=== PATIENT | female | born 1950 | race Caucasian/White ===

== ENCOUNTER 2019-04-17 09:22 | Outpatient (CLI) | payer MEDICARE, SELFPAY ==
--- NOTE | ~2019-04-17 | CT_ITS ---
EXAMINATION:CT lung screening DATE: 04/17/2019 09:52 INDICATION: Personal history of tobacco dependence. Current smoker with 40 pack year history. TECHNIQUE: Computed tomography (CT) of the chest was performed without intravenous contrast. Automate d exposure control and iterative reconstruction technique were employed. The dose-length product (DLP ) was 95.32 mGy-cm. COMPARISON: Chest CT 02/14/2018 FINDINGS: There is moderate emphysema. There is mild bronchiectasis in the inferior lungs. Calcified bilateral lung nodules and calcified right hilar lymph nodes are consistent with old granulomatous di sease. There is mild atelectasis bilaterally. There is a chronic 2 mm nodule in left upper lobe. Ther e is a chronic 3 mm groundglass nodule in left upper lobe. No pleural effusion. The heart size is nor mal. There are coronary artery calcifications. No pericardial effusion. There is mild thoracic spondy losis. IMPRESSION: 1. Lung-RADS category 2: Benign appearance or behavior. Continue annual screening with noncontrast lo w-dose chest CT in 12 months. Reviewed, dictated and finalized at location A. ER HAND IMPRESSION: 1. Lung-RADS category 2: Benign appearance or behavior. Continue annual screeni ng with noncontrast low-dose chest CT in 12 months.
== END 2019-04-17 09:23 | disposition home or self-care (01) ==
PROVIDERS: PCP Family Medicine; Visit Provider Nurse Practitioner Family
DX: Z12.2 Encounter for screening for malignant neoplasm of respiratory organs (principal); Z87.891 Personal history of nicotine dependence
CPT/HCPCS: G0297

== ENCOUNTER 2019-09-11 12:39 | Outpatient (CLI) | payer MEDICARE, SELFPAY ==
--- NOTE | 2019-09-16 11:37 | WPDPFTINT ---
PFT Interpretation PFT Interpretation: This PFT met all criteria for ATS standards and reproducibility FEV/FVC post bronchodilator 28% of predicted FEV1 45% of predicted or 1.00 liters FVC 118% or 3.59 liters FVC improved by 16% and 510 ml after bronchodilator challenge TLC 170% of predicted 0r 1.70 liters RV 276% RV/TLC 64% DLCO 58% when adjusted for alveolar volume but not adjusted for hemoglobin Flow volume loops showed severe expiratory coving Impression: Severe air flow obstruction with good response to bronchodilators. Hyperinflation, air trapping and moderately reduced diffusion capacity are also present. When compared to PFT from August 2017 there has been a decline in FEV1 but this is within the accepted rate of decline. This pattern suggest COPD with possible Asthma compoenent. Clinical correlation is advised.
== END 2019-09-11 12:40 | disposition home or self-care (01) ==
PROVIDERS: PCP Family Medicine; Visit Provider Internal Medicine Critical Care Medicine
DX: J44.9 Chronic obstructive pulmonary disease, unspecified (principal); R94.2 Abnormal results of pulmonary function studies
CPT/HCPCS: 94060; 94726; 94729

== ENCOUNTER 2019-11-20 08:59 | Outpatient (CLI) | payer MEDICARE, SELFPAY ==
--- NOTE | ~2019-11-20 | MMUS_ITS ---
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 CAD analysis was submitted and interpreted. High resolution complete bilat eral breast ultrasound was performed. COMPARISON: 10/31/2018 bilateral digital mammogram and limited left breast ultrasound BREAST PARENCHYMAL COMPOSITION: There are scattered areas of fibroglandular density. FINDINGS: MAMMOGRAPHIC FINDINGS: There is stable postoperative scarring and retraction in the upper outer quadrant of the left breast. A biopsy marker is present in the outer mid left breast. There is mild nodularity of the fibroglandular stroma in the upper outer quadrant of the right breast ; small new nodular mass cannot be excluded. Ultrasound examination was performed. ULTRASOUND: Right breast: Real-time interrogation of the upper outer quadrant of the right breast and subareolar area reveals no suspicious mass or shadowing. Left breast: There is architectural distortion likely due to postoperative change at 2:00 2 cm from t he nipple; 6 month follow-up diagnostic left mammogram and left breast ultrasound examination are rec ommended. IMPRESSION: 1. Probable stable postoperative change of upper outer quadrant of left breast 2. 6 month diagnostic left mammogram and left breast ultrasound follow-up are recommended. BI-RADS category 3, probably benign findings. Reviewed, dictated and finalized at location A. IMPRESSION: 1. Probable stable postoperative change of upper outer quadrant of left breast 2. 6 month diagnostic left mammogram and left breast ultrasound follow-up are r ecommended. BI-RADS category 3, probably benign findings.
== END 2019-11-20 09:00 | disposition home or self-care (01) ==
PROVIDERS: PCP Family Medicine
DX: D05.02 Lobular carcinoma in situ of left breast (principal); R92.8 Other abnormal and inconclusive findings on diagnostic imaging of breast
CPT/HCPCS: 76642; 77062; 77066; G0279

== ENCOUNTER 2020-04-15 12:13 | Outpatient (CLI) | payer MEDICARE, SELFPAY ==
--- NOTE | ~2020-04-15 | CT_ITS ---
EXAMINATION: CT lung screening DATE: 04/15/2020 12:45 INDICATION: Personal history of nicotine dependence, current smoker with 45 pack year history TECHNIQUE: Computed tomography (CT) of the chest was performed without intravenous contrast. The dose -length product (DLP) was 106.40 mGy-cm. Automated exposure control and iterative reconstruction tech [employer] were employed. COMPARISON: 04/17/2019 FINDINGS: There is moderate emphysema. There is a stable 11 mm groundglass nodule of the right upper lobe without solid nodular component (image 50). A chronic stable 2 mm nodule is present in the left upper lobe. No new pulmonary nodules are identified. There is no pleural effusion or pneumothorax. Mi ld bronchiectasis is noted in the lower lobes. There is a calcified granuloma right lower lobe. No pa thologically enlarged thoracic lymph nodes are identified. The heart size is normal. An intramuscular lipoma is noted in the right chest wall. There is calcified coronary artery atherosclerosis. IMPRESSION: 1. Lung-RADS category 2: Benign appearance or behavior. Continue annual screening with noncontrast lo w-dose chest CT in 12 months. Reviewed, dictated and finalized at location A. SPACE PROJECT MANAGER IMPRESSION: 1. Lung-RADS category 2: Benign appearance or behavior. Continue annual screeni ng with noncontrast low-dose chest CT in 12 months.
== END 2020-04-15 12:14 | disposition home or self-care (01) ==
PROVIDERS: PCP Physician Assistant; Visit Provider Nurse Practitioner Family
DX: Z12.2 Encounter for screening for malignant neoplasm of respiratory organs (principal); Z87.891 Personal history of nicotine dependence
CPT/HCPCS: 71271

== ENCOUNTER → 2020-05-31 02:12 | Outpatient (CLI) | payer MEDICARE, SELFPAY ==
[2020-05-31 20:23] LABS: SARS-CoV-2 RNA PCR Negative
== END ==
PROVIDERS: PCP Physician Assistant; Visit Provider Internal Medicine Gastroenterology
DX: Z01.812 Encounter for preprocedural laboratory examination (principal); Z20.822 Contact with and (suspected) exposure to COVID-19
CPT/HCPCS: C9803; U0003; U0005

== ENCOUNTER 2020-06-03 01:32 | Day surgery (SDC) | payer MEDICARE, SELFPAY ==
[2020-05-20 13:27] VITALS: BMI 26.7
[2020-06-03 06:25] VITALS: BP 153/95; PULSE 98; RESP 18; TEMP 36.6; O2SAT 98
[2020-06-03] MEDS: LACTATED RINGERS 1,000 ML 150 ML IV CONT (06:35)
--- NOTE | 2020-06-03 07:04 | P.PNAN_ITS ---
Anes - Initial Pre Proc Eval Procedure: Operation Date: 06/03/20 07:30 Proposed Procedures p Screening Colonoscopy - Zion Matta MD Date/Time: 06/03/20 07:04 Surgeon: Zion Matta MD Pre Op Diagnosis: Neoplasm Screening, Hx of Colon Polyps Patient Data Age: 69 Gender: F Height: 5 ft 5 in Weight: 71.2 kg Last Vital Signs Temp 36.6 C 06/03/20 06:25 Pulse 98 06/03/20 06:25 Resp 18 06/03/20 06:25 BP 153/95 H 06/03/20 06:25 Pulse Ox 98 06/03/20 06:25 Allergies Allergy/AdvReac Type Severity Reaction Status Date / Time morphine Allergy Unknown Nausea Verified 06/03/20 06:23 Home Medications Medication Instructions Recorded Confirmed Type aspirin 81 mg tablet,delayed 81 mg PO DAILY 02/19/19 06/03/20 History release nitroglycerin 0.4 mg sublingual 0.4 mg SUBLINGUAL Q5M PRN 02/19/19 06/03/20 History tablet albuterol sulfate 90 mcg/actuation 1 inhalation INHALATION Q4H #8.5 gm 05/15/19 06/03/20 Rx aerosol inhaler irbesartan 150 mg tablet 150 mg PO DAILY #90 tablet 02/12/20 06/03/20 Rx ascorbate calcium (vitamin C) 500 500 mg PO DAILY 03/20/20 06/03/20 History mg tablet atorvastatin 80 mg tablet 80 mg PO DAILY 03/20/20 06/03/20 History cholecalciferol (vitamin D3) 250 250 mcg PO WEEKLY 03/20/20 06/03/20 History mcg (10,000 unit) capsule clobetasol 0.05 % topical cream 1 applic TOPICAL DAILY 03/20/20 06/03/20 History fluticasone propionate 50 1 spray INTRANASAL DAILY 03/20/20 06/03/20 History mcg/actuation nasal spray,suspension loratadine 10 mg capsule 10 mg PO DAILY 03/20/20 06/03/20 History tacrolimus 0.1 % topical ointment 1 applic TOPICAL BID 03/20/20 06/03/20 History triamcinolone acetonide 0.1 % 1 applic TOPICAL BID 03/20/20 06/03/20 History topical cream zoledronic acid 5 mg/100 mL in IV 03/20/20 04/01/20 History mannitol 5 %-water intravenous piggybck budesonide 160 mcg-glycopyr 9 2 inh INHALATION QAM AND QPM #10.7 04/25/20 06/03/20 Rx mcg-formot 4.8 mcg/actuation HFA g inhaler sod picosulf 10 mg-magnes 3.5 160 ml PO BID #160 ml 05/02/20 06/03/20 Rx gram-citric 12 gram/160 mL oral solution omeprazole 20 mg tablet,delayed 20 mg PO DAILY #90 tablet 05/28/20 Rx release Patient hx anesthesia problems: none Family hx anesthesia problems: none PMFSH Past Medical History Medical History Benign hypertension Chronic obstructive pulmonary disease 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
--- NOTE | 2020-06-03 07:05 | PM.HPGS ---
History of Present Illness History of Present Illness Consent: Risks, benefits, and alternatives have been discussed and questions answered. Patient agrees to proceed with procedure. Chief complaint: Neoplasm Screening, Hx of Colon Polyps Narrative: Oralia Garsia is a 69 year old female Here for colon cancer screening. 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y: 1 Smoking cigarettes per day: 20.0 Years smoked: 45 Smoking pack-years: 45.00 Smoking status: Current every day smoker Tobacco type: cigarettes Second hand tobacco smoke exposure: No Alcohol intake: current Living arrangements: alone Gender identity (if verbalized by the patient): Female Spiritual care concerns: No Meds Home Medications and Allergies Home Medications Medication Instructions Recorded Confirmed Type aspirin 81 mg tablet,delayed 81 mg PO DAILY 02/19/19 06/03/20 History release nitroglycerin 0.4 mg sublingual 0.4 mg SUBLINGUAL Q5M PRN 02/19/19 06/03/20 History tablet albuterol sulfate 90 mcg/actuation 1 inhalation INHALATION Q4H #8.5 gm 05/15/19 06/03/20 Rx aerosol inhaler irbesartan 150 mg tablet 150 mg PO DAILY #90 tablet 02/12/20 06/03/20 Rx ascorbate calcium (vitamin C) 500 500 mg PO DAILY 03/20/20 06/03/20 History mg tablet atorvastatin 80 mg tablet 80 mg PO DAILY 03/20/20 06/03/20 History cholecalciferol (vitamin D3) 250 250 mcg PO WEEKLY 03/20/20 06/03/20 History mcg (10,000 unit) capsule clobetasol 0.05 % topical cream 1 applic TOPICAL DAILY 03/20/20 06/03/20 History fluticasone propionate 50 1 spray INTRANASAL DAILY 03/20/20 06/03/20 History mcg/actuation nasal spray,suspension loratadine 10 mg capsule 10 mg PO DAILY 03/20/20 06/03/20 History tacrolimus 0.1 % topical ointment 1 applic TOPICAL BID 03/20/20 06/03/20 History triamcinolone acetonide 0.1 % 1 applic TOPICAL BID 03/20/20 06/03/20 History topical cream zoledronic acid 5 mg/100 mL in IV 03/20/20 04/01/20 History mannitol 5 %-water intravenous piggybck budesonide 160 mcg-glycopyr 9 2 inh INHALATION QAM AND QPM #10.7 04/25/20 06/03/20 Rx mcg-formot 4.8 mcg/actuation HFA g inhaler sod picosulf 10 mg-magnes 3.5 160 ml PO BID #160 ml 05/02/20 06/03/20 Rx gram-citric 12 gram/160 mL oral solution omeprazole 20 mg tablet,delayed 20 mg PO DAILY #90 tablet 05/28/20 Rx release Allergies Allergy/AdvReac Type Severity Reaction Status Date / Time morphine Allergy Unknown Nausea Verified 06/03/20 06:23 Vital Signs Vital Signs - 24 hr 06/03/20 06:25 Temperature 36.6 C Pulse Rate 98 Respiratory Rate 18 Blood Pressure 153/95 H Pulse Oximetry 98 Exam Resp: Auscultation: clear to auscultation bilaterally Cardio: Rate: regular rate Rhythm: regular rhythm GI: GI Palp: Yes Soft to palpation and No Tenderness to palpation present (GI) Assessment and Plan Assessment and plan (1) Colon cancer screening: Code(s): Z12.11 - Encounter for screening for malignant neoplasm
[2020-06-03 07:47] VITALS: BP 121/77; PULSE 83; RESP 27; O2SAT 100
[2020-06-03 07:57] VITALS: BP 138/68; PULSE 77; RESP 24; O2SAT 100
[2020-06-03 08:07] VITALS: BP 134/68; PULSE 81; RESP 22; O2SAT 99
== END 2020-06-03 08:25 | disposition home or self-care (01) ==
PROVIDERS: PCP Physician Assistant; Visit Provider Internal Medicine Gastroenterology
PROC: 0DJD8ZZ Inspection of Lower Intestinal Tract, Via Natural or Artificial Opening Endoscopic (ICD-10-PCS; CPT 45378; principal; 2020-06-03 07:30)
DX: Z12.11 Encounter for screening for malignant neoplasm of colon (principal); D12.0 Benign neoplasm of cecum; K62.1 Rectal polyp; K57.30 Diverticulosis of large intestine without perforation or abscess without bleeding; J44.9 Chronic obstructive pulmonary disease, unspecified; I10 Essential (primary) hypertension; I25.10 Atherosclerotic heart disease of native coronary artery without angina pectoris; M81.0 Age-related osteoporosis without current pathological fracture; R76.11 Nonspecific reaction to tuberculin skin test without active tuberculosis; Z79.82 Long term (current) use of aspirin; Z79.51 Long term (current) use of inhaled steroids; F17.210 Nicotine dependence, cigarettes, uncomplicated
CPT/HCPCS: 45385; 45380; 88305; C9803; J2704; J7120; U0003; U0005

== ENCOUNTER 2021-04-28 07:02 | Outpatient (CLI) | payer MEDICARE, SELFPAY ==
--- NOTE | ~2021-04-28 | CT_ITS ---
EXAMINATION: CT lung screening DATE: 04/28/2021 07:26 INDICATION: Personal history of tobacco dependence TECHNIQUE: Computed tomography (CT) of the chest was performed without intravenous contrast. The dose -length product was 93.94 mGy-cm. Automated exposure control and iterative reconstruction technique w ere employed. COMPARISON: Comparison to multiple prior studies sequentially, with oldest reviewed study dated 04/17. FINDINGS: Stable groundglass density right upper lobe adjacent to the fissure, image 49. Densely calc ified right lower lobe nodule. There are a few additional scattered areas of groundglass opacificatio n which are not significantly changed. There are a few small nodules predominantly in the upper lobes measuring 2 mm or less, without significant change. Mild emphysema. No endobronchial lesions. No new pulmonary nodules or masses. There is right lower lobe atelectasis/scarring. No thoracic lymphadenop athy. There is atherosclerosis of the aorta and coronary arteries. Heart size normal. No significant pleural or pericardial effusion. Mild thoracic spondylosis. IMPRESSION: 1. Lung-RADS category 2: Benign appearance or behavior. Continue annual screening with noncontrast lo w-dose chest CT in 12 months. Reviewed, dictated and finalized at location B. DATA IMPRESSION: 1. Lung-RADS category 2: Benign appearance or behavior. Continue annual screeni ng with noncontrast low-dose chest CT in 12 months.
== END 2021-04-28 07:03 | disposition home or self-care (01) ==
PROVIDERS: PCP Family Medicine; Visit Provider Nurse Practitioner Family
DX: Z87.891 Personal history of nicotine dependence (principal)
CPT/HCPCS: 71271

== ENCOUNTER 2022-04-08 07:56 | Outpatient (CLI) | payer MEDICARE, SELFPAY ==
[2022-04-08 08:50] LABS: Alanine Aminotransferase 56 U/L (6-35); Albumin Level 4.3 g/dL (3.5-5.1); Alkaline Phosphatase 63 U/L (38-126); Anion Gap 5 mmol/L (8-16); Aspartate Amino Transferase 35 U/L (14-36); Bilirubin,Total 0.8 mg/dL (0.2-1.3); Blood Urea Nitrogen 11 mg/dL (7-17); Calcium 9.2 mg/dL (8.4-10.2); Carbon Dioxide 30 mmol/L (22-30); Chloride 100 mmol/L (98-107); Cholesterol 157 mg/dL (0-200); Estimated Glomerular Filt Rate > 60; Glucose 105 mg/dL (65-110); HDL Direct 83 mg/dL; Potassium 4.1 mmol/L (3.4-5.0); Sodium 135 mmol/L (137-145); Triglycerides 58 mg/dL (<150)
[2022-04-08 09:01] LABS: LDL Cholesterol Direct 54 mg/dL
[2022-04-08 11:04] LABS: Hepatitis C Virus Antibody Negative (Negative)
== END 2022-04-08 07:57 | disposition home or self-care (01) ==
LOC: ANHLAB 07:58
PROVIDERS: PCP Family Medicine; Visit Provider Family Medicine
DX: Z00.00 Encounter for general adult medical examination without abnormal findings (principal); I25.10 Atherosclerotic heart disease of native coronary artery without angina pectoris; E78.2 Mixed hyperlipidemia; Z11.59 Encounter for screening for other viral diseases
CPT/HCPCS: 36415; 80053; 80061; 86803

== ENCOUNTER 2022-04-29 07:05 | Outpatient (CLI) | payer MEDICARE, SELFPAY ==
--- NOTE | ~2022-04-29 | CT_ITS ---
EXAMINATION: CT lung screening DATE: 04/29/2022 07:26 INDICATION: Lung cancer screening. TECHNIQUE: Computed tomography (CT) of the chest was performed without intravenous contrast. The dose -length product was 92.76 mGy-cm. Automated exposure control and iterative reconstruction technique w ere employed.. Automated exposure control and iterative reconstruction technique were employed. COMPARISON: Comparison to multiple prior studies sequentially, with oldest reviewed study dated 04/17. FINDINGS: There is an irregular shaped 2 cm mass in the left breast with peripheral coarse calcificat ion. This does not appear significantly changed from prior examinations, possibly previous biopsy loc ated. Recommend correlation with diagnostic mammogram and ultrasound. Heart size normal. No significa nt pleural or pericardial effusion. Calcified granuloma right lower lobe. No thoracic lymphadenopathy . There is emphysema. There are groundglass opacities in the right upper lobe and right lower lobe. N o endobronchial lesions. No pneumothorax. There is a 7 mm nodule in the right lower lobe surrounded b y groundglass opacification. There is a 2 mm right upper lobe nodule. IMPRESSION: 1. Lung Rads category 4A, suspicious: recommend follow-up low dose CT chest in 3 months or PET/CT sca n. 2: Patchy groundglass opacities of the right upper lobe, most likely infectious/inflammatory. Reviewed, dictated and finalized at location L. HEAD HAND IMPRESSION: 1. Lung Rads category 4A, suspicious: recommend follow-up low dose CT chest in 3 months or PET/CT scan. 2: Patchy groundglass opacities of the right upper lobe, most likely infectious /inflammatory.
== END 2022-04-29 07:06 | disposition home or self-care (01) ==
PROVIDERS: PCP Family Medicine; Visit Provider Physician Assistant
DX: Z12.2 Encounter for screening for malignant neoplasm of respiratory organs (principal); F17.210 Nicotine dependence, cigarettes, uncomplicated; R91.8 Other nonspecific abnormal finding of lung field
CPT/HCPCS: 71271

== ENCOUNTER 2022-07-27 10:07 | Outpatient (CLI) | payer MEDICARE, SELFPAY ==
--- NOTE | ~2022-07-27 | CT_ITS ---
EXAMINATION:CT diagnostic chest wo con DATE: 07/27/2022 10:44 INDICATION: Lung nodule. TECHNIQUE: Computed tomography (CT) of the chest was performed without intravenous contrast. Automate d exposure control and iterative reconstruction technique were employed. The dose-length product (DLP ) was 108.77 mGy-cm. COMPARISON: Chest CT 04/29/2022, 04/28/21 FINDINGS: There is severe emphysema. A calcified right lung nodule and calcified right hilar lymph no niesha are consistent with old granulomatous disease. There is mild bronchiectasis in the inferior lungs . There are mild groundglass opacities in right upper lobe and right lower lobe with interval improve ment. Groundglass opacities in right lower lobe are associated with a 5 mm nodule that previously alexa sured 6 mm. No pleural effusion. The heart size is normal. There are coronary artery calcifications. No pericardial effusion. There is calcified atherosclerosis of the aorta and many of the other arteri es. There is chronic postoperative change in left breast. There is mild thoracic spondylosis. IMPRESSION: 1. Lung-RADS category 3: Probably benign. Further evaluation is recommended with noncontrast low-dose chest CT in 6 months. Reviewed, dictated and finalized at location A. IMPRESSION: 1. Lung-RADS category 3: Probably benign. Further evaluation is recommended wit h noncontrast low-dose chest CT in 6 months.
== END 2022-07-27 10:08 | disposition home or self-care (01) ==
PROVIDERS: PCP Family Medicine; Visit Provider Nurse Practitioner Family
DX: R91.8 Other nonspecific abnormal finding of lung field (principal)
CPT/HCPCS: 71250

== ENCOUNTER 2023-01-26 12:33 | Outpatient (CLI) | payer MEDICARE, SELFPAY ==
--- NOTE | ~2023-01-26 | CT_ITS ---
EXAMINATION: CT diagnostic chest wo con DATE: 01/26/2023 13:04 INDICATION: COPD, history of breast cancer, history of groundglass opacities of the right lung and yee ng cancer screening CT TECHNIQUE: Computed tomography (CT) of the chest was performed without intravenous contrast. The dose -length product (DLP) was 81.65 mGy-cm. Automated exposure control and iterative reconstruction techn ique were employed. COMPARISON: 07/27/2022 FINDINGS: There are persistent but improved groundglass opacities of the right lower lobe. A previous ly described associated subpleural nodule is no longer evident. No new pulmonary nodules are identifi ed. The lungs are free of acute opacities. No pleural effusion or pneumothorax. A calcified nodule of the right lower lobe is consistent with old granulomatous disease. Postoperative changes are again n oted in the left breast. No pathologically enlarged thoracic lymph nodes are identified. The heart si ze is normal. Calcified coronary artery atherosclerosis is noted. There is mild thoracic spondylosis. IMPRESSION: 1. Lung-RADS category 2: Benign appearance or behavior. Continue annual screening with noncontrast lo w-dose chest CT in 12 months. Reviewed, dictated and finalized at location F. ERMAN MACHINE OPERATOR IMPRESSION: 1. Lung-RADS category 2: Benign appearance or behavior. Continue annual screeni ng with noncontrast low-dose chest CT in 12 months.
== END 2023-01-26 12:34 | disposition home or self-care (01) ==
PROVIDERS: PCP Family Medicine; Visit Provider Nurse Practitioner Family
DX: R91.8 Other nonspecific abnormal finding of lung field (principal)
CPT/HCPCS: 71250

== ENCOUNTER 2023-07-22 07:45 | Outpatient (CLI) | payer MEDICARE, SELFPAY ==
--- NOTE | ~2023-07-22 | US_ITS ---
Limited Abdominal Sonogram: Real-time sonographic imaging of the right upper quadrant was performed. Clinical History: Abnormal serum enzyme levels Findings: The liver appears echogenic, with no evidence of solid mass lesion or bile duct dilatation . Small hepatic cysts are present. Main portal vein demonstrates normal direction of flow. The gallbl adder is well distended, and appears normal with no evidence of gallstone or wall thickening. The com mon bile duct measures 6 mm. The visualized pancreas, aorta, and IVC are unremarkable. Impression: Diffuse fatty infiltration of the liver. Small hepatic cysts. Reviewed, dictated and finalized at location . Impression: Diffuse fatty infiltration of the liver. Small hepatic cysts.
== END 2023-07-22 07:46 | disposition home or self-care (01) ==
PROVIDERS: PCP Family Medicine; Visit Provider Family Medicine
DX: R74.8 Abnormal levels of other serum enzymes (principal); K76.0 Fatty (change of) liver, not elsewhere classified; K76.89 Other specified diseases of liver
CPT/HCPCS: 76705

== ENCOUNTER 2023-08-05 09:04 | Outpatient (CLI) | payer MEDICARE, SELFPAY ==
--- NOTE | ~2023-08-05 | MM_ITS ---
EXAMINATION: MM diagnostic ricardo BI w mandeep HISTORY: Lobular carcinoma in situ of the left breast TECHNIQUE: Additional 3-D tomosynthesis images of the breasts were performed and synthetic 2-D images were generated. CAD analysis was submitted and interpreted. COMPARISON: Comparison to multiple prior studies sequentially, with oldest reviewed study dated 09/2018. BREAST PARENCHYMAL COMPOSITION: Not dense: There are scattered areas of fibroglandular density. FINDINGS: The right breast is stable without evidence for malignancy. There is architectural distorti on and asymmetry in the upper outer quadrant of the left breast, consistent with previous lumpectomy. There are associated tissue markers. There are developing calcifications associated with this karlie ectural distortion. Some of the calcifications are coarse benign appearance while others have a more pleomorphic appearance. IMPRESSION: 1. Developing indeterminate left breast calcifications in the area of prior lumpectomy. 2. Consider further evaluation with MRI to assess for abnormal enhancement. Alternatively further angelito luation with biopsy may be performed at the discretion of the patient and physician. BI-RADS Category 0: Incomplete: Needs additional imaging evaluation. Reviewed, dictated and finalized at location B. IMPRESSION: 1. Developing indeterminate left breast calcifications in the area of prior lum pectomy. 2. Consider further evaluation with MRI to assess for abnormal enhancement. Alt ernatively further evaluation with biopsy may be performed at the discretion of the patient and physician. BI-RADS Category 0: Incomplete: Needs additional imaging evaluation.
== END 2023-08-05 09:05 ==
LOC: MICIMG 09:06
PROVIDERS: PCP Family Medicine; Visit Provider Internal Medicine Hematology & Oncology
DX: D05.02 Lobular carcinoma in situ of left breast (principal); Z98.890 Other specified postprocedural states
CPT/HCPCS: 77062; 77066; G0279

== ENCOUNTER 2024-01-24 07:59 | Outpatient (CLI) | payer MEDICARE, SELFPAY ==
--- NOTE | ~2024-01-24 | CT_ITS ---
EXAMINATION: CT lung screening DATE: 01/24/2024 08:34 INDICATION: Z87.891 - Personal history of nicotine dependence TECHNIQUE: Computed tomography (CT) of the chest was performed without intravenous contrast. Addition al 3D reconstructions utilizing coronal maximum intensity projection (MIP) were performed. Automated exposure control and iterative reconstruction technique were employed. The dose-length product was 67 .68 mGy-cm. COMPARISON: 01/26/2023 FINDINGS: Mild emphysema. Calcified pulmonary nodules in the right lower lobe and calcified right hilar and med iastinal lymph nodes consistent with old granulomatous disease. Overall increase in size of a previou sly 3 mm, currently 7 mm nodule in the anterior segment of the left upper lobe. Interval increase in size of a an ovoid likely intrafissural lymph node along the cephalad right major fissure which previ ously measured 4 x 2 mm on the coronal images, currently measuring 6 x 3 mm. Interval progression of geographic region of peripheral predominant groundglass opacity and irregular septal line thickening in the right lower lobe. There are some associated small subsegmental regions of consolidation at the anteroinferior aspect of the region of predominantly interstitial lung disease which was previously free of opacities. Both the distribution and pattern of progression would favor acute on chronic pneu monia over malignancy. There is some linear discoid atelectasis in the right middle lobe. No pleural effusion. Heart size is normal. Atherosclerotic coronary artery calcification is. Aortic valve calcif ication. No pericardial effusion. Additional atherosclerotic calcifications along the normal caliber thoracic aorta and great vessels arising from the arch. No pathologically enlarged thoracic lymphaden opathy. Prominent diffuse hepatic steatosis. Mild thoracic spondylosis. Chronic healing fractures of the right lateral fifth-seventh ribs. IMPRESSION: 1. Lung-RADS category 4AS: (Suspicious, 5-15% chance of malignancy). Recommend 3 month follow-up low- dose noncontrast chest CT. 2. Significant interval progression in the region of groundglass opacity, irregular septal line thick ening and small patchy regions of consolidation in the right lower lobe suspicious for acute on chron ic pneumonia. Reviewed, dictated and finalized at location B. RETE BUILDINGS ASSEMBLER IMPRESSION: 1. Lung-RADS category 4AS: (Suspicious, 5-15% chance of malignancy). Recommend 3 month follow-up low-dose noncontrast chest CT. 2. Significant interval progression in the region of groundglass opacity, irreg ular septal line thickening and small patchy regions of consolidation in the ri ght lower lobe suspicious for acute on chronic pneumonia.
== END 2024-01-24 08:00 | disposition home or self-care (01) ==
PROVIDERS: PCP Family Medicine; Visit Provider Nurse Practitioner Family
DX: Z12.2 Encounter for screening for malignant neoplasm of respiratory organs (principal); Z87.891 Personal history of nicotine dependence
CPT/HCPCS: 71271

== ENCOUNTER 2024-02-13 10:15 | Outpatient (CLI) | payer MEDICARE, SELFPAY ==
--- NOTE | ~2024-02-13 | MM_ITS ---
EXAMINATION: MM diagnostic ricardo LT w mandeep HISTORY: Follow-up left breast calcifications. Status post left lumpectomy for benign tumor. TECHNIQUE: Additional 3-D tomosynthesis images of the left breast were performed and synthetic 2-D im ages were generated. CAD analysis was submitted and interpreted. COMPARISON: Comparison to multiple prior studies sequentially, with oldest reviewed study dated 11/19. BREAST PARENCHYMAL COMPOSITION: Not dense: There are scattered areas of fibroglandular density. FINDINGS: There are surgical changes consistent with previous lumpectomy in the upper outer quadrant of the left breast. There are adjacent tissue markers. There are developing coarse amorphous calcific ations, most likely benign fat necrosis. IMPRESSION: 1. Probable benign calcifications developing in the upper outer quadrant of the left breast, most lik homar benign fat necrosis. 2. 6 month follow-up diagnostic left mammogram recommended. BI-RADS category 4, suspicious findings. Reviewed, dictated and finalized at location B. [facility]ATION FOREMAN IMPRESSION: 1. Probable benign calcifications developing in the upper outer quadrant of the left breast, most likely benign fat necrosis. 2. 6 month follow-up diagnostic left mammogram recommended. BI-RADS category 4, suspicious findings.
== END 2024-02-13 10:16 | disposition home or self-care (01) ==
LOC: ANHIMG 10:19
PROVIDERS: PCP Family Medicine; Visit Provider Internal Medicine Hematology & Oncology
DX: R92.8 Other abnormal and inconclusive findings on diagnostic imaging of breast (principal)
CPT/HCPCS: 77061; 77065; G0279

== ENCOUNTER 2024-04-16 07:52 | Outpatient (CLI) | payer MEDICARE, SELFPAY ==
--- NOTE | ~2024-04-16 | CT_ITS ---
CT Scan of the Chest without Contrast: Clinical Indication: Pulmonary nodule Technique: Contiguous sections were acquired throughout the chest without intravenous contrast. Dose reduction technique was used on this scan by utilizing automated exposure control and iterative recon struction technique. The dose-length product (DLP) was 70.88 mGy-cm. COMPARISON: 01/24/2024 Findings: There is no evidence of any significant mediastinal, hilar or axillary lymphadenopathy. There are ext ensive atherosclerotic calcifications of the aorta and coronary arteries. There is no evidence of pleural or pericardial effusion. 9 mm left upper lobe pulmonary nodule is mildly increased in size from prior exam (image 46). Right l ower lobe patchy consolidation is mildly worsened from prior exam. Large calcified right basilar gran uloma present. Images through the upper abdomen reveal diffuse hepatic steatosis. Impression: 9 mm left upper lobe pulmonary nodule is increased. Early neoplastic lesion not excluded. Continued f ollow-up at a minimum is advised. Tissue sampling could be attempted, but may be difficult given the relative small size of the lesion. Mild worsening of right lower lobe consolidation and interstitial disease. Right lower lobe pneumonia is a consideration. Reviewed, dictated and finalized at location . EXCHANGE MANAGER Impression: 9 mm left upper lobe pulmonary nodule is increased. Early neoplastic lesion not excluded. Continued follow-up at a minimum is advised. Tissue sampling could b e attempted, but may be difficult given the relative small size of the lesion. Mild worsening of right lower lobe consolidation and interstitial disease. Righ t lower lobe pneumonia is a consideration.
--- OUTSIDE RECORDS SUMMARY | 2024-04-16 07:56 | XMS_ITS | Clinical Summary ---
Author Organization [facility] Address [address] [place] [address] Care Team Providers Care Medical Office Scheduler Name Role Phone Nu Shirley MD Primary Care Provider [phone] Allergies Active Allergy Reactions Criticality Noted Date Comments Morphine Other (See Comments) ,Nausea and Vomiting Low 08/19/2014 sick sick Medications aspirin (ECOTRIN EC) 81 mg Tablet, Delayed Release (E.C.) Take 81 mg by mouth. Active Cholecalciferol , Vitamin D3, 10,000 unit Capsule Take 10,000 Units by mouth. Active omeprazole (PriLOSEC) 20 mg Tablet, Delayed Release (E.C.) Take by mouth. Activ e OTHER [place] Mushroom 2 tablets daily . Active clobetasol (TEMOVATE) 0.05 % Cream APPLY TO AFFECTED AREA(S) OF RIGHT ARM AND LEFT LEG TWICE DAILY FOR 10 DAYS THEN EVERY OTHER DAY. 9 Active atorvastatin (LIPITOR) 40 mg tablet Take 1 tablet by mouth once daily 0 Active budesonide-glyc opyr-formoterol (Breztri Aerosphere) 160-9-4.8 mcg/actuation HFA Aerosol Inhaler 1 Active ezetimibe (ZETIA) 10 mg tablet Take 1 Tablet by mouth daily. 2 Active empagliflozin (JARDIANCE) 10 mg tablet Take 10 mg by mouth daily. 3 Active fluticasone propionate (FLONASE) 50 mcg/spray [place], Suspension nasal inhaler Administer 2 Sprays in each nostril daily. 2 Active inhalational spacing device (Space Chamber) Spacer as directed 3 Active sacubitriL-vals scottie (ENTRESTO) 49-51 mg Tablet Take 1 Tablet by mouth 2 times daily. 3 Active spironolactone (ALDACTONE) 25 mg tablet Take 25 mg by mouth daily. 4 06/01/19 25 Active CYANOCOBALAMIN, VITAMIN B-12, ORAL Take by mouth. Activ e Active Problems Patient Care Coordination No te Formatting of this note migh t be different from the original. Primary Care: Stacey Wyatt MD Referring Provider: Stacey Wyatt MD NO ADDRESS ON FILE Other: Dr. Claribel Castillo MD Problem Noted Date Diagnosed Date Abnormality of left breast on screening mammogra m 12/01/2019 Tobacco use 03/01/2019 Abnormal mammogram of right breast 11/16/2018 Lobular carcinoma in situ (LCIS) of left breast 01/25/2018 Atypical lobular hyperplasia (ALH) of left breas t 09/27/2017 Abnormal ultrasound of breast 09/20/2017 COPD (chronic obstructive pulmonary disease) Osteoporosis Resolved Problems Problem Noted Date Diagnosed Date Resolved Date Posttraumatic hematoma of left breast 11/01/2017 12/01/2019 Abnormal mammogram of left breast 09/20/2017 04/20/2018 Microcalcification of left b reast on mammogram 09/20/2017 04/20/2018 Encounters Date Type Department Care Team Description 04/03/2024 External Device Data [facility] ABSTRACTION Provider, Abstract 03/28/2024 External Device Data [facility] ABSTRACTION Provider, Abstract 03/28/2024 External Device Data [facility] ABSTRACTION Provider, Abstract 03/21/2024 External Device Data ST[facility] ABSTRACTION Provider, Abstract 02/13/2024 Orders Only [facility] - [place] [address] [place] [phone] Suhail Luis MD Abnormal mammogram of left breast (Primary Dx) 02/13/2024 Orders Only [facility] [place] [address] [place] [phone] Suhail Luis MD 01/24/2024 Orders Only [facility] [place] [address] [place] [address] Suhail Luis MD Abnormal mammogram of left breast (Primary Dx) from Last 3 Months Family History Medical History Relation Name Comments Cancer Brother prostate; at 67 Prostate Cancer Brother Cancer Mother Zulma Garsia Breast Cancer Sister Aubree Gonzalez Ovarian Cancer Neg Hx Relation Name Status Comments Brother Mother Zulma aGrsia Sister Aubree Gonzalez Alive Social History Tobacco Use Types Packs/Day Years Used Date Smoking Tobacco: Some Days Cigarettes 0.2 41 Started: 06/16/1977; Last attempted to quit: 06/16/2017 Smokeless Tobacco: Never Tobacco Cessation:Ready to Q uit: Not Asked; Counseling Given: Not Answered Comments:occasional cigarette/ 7 cigarettes/week Alcohol Use Standard Drinks/Week Comments Yes 5 (1 standard drink = 0.6 oz pur e alcohol) Comments No Sex and Gender Information Value Date Recorded Sex Assigned at Not on file Legal Sex Female 10:59 AM CDT Gender Identity Not on file Sexual Orientation Not on file Last Filed Vital Signs Vital Sign Reading Time Taken Comments Blood Pressure 67/59 07/18/2023 10:38 AM CDT Pulse 107 07/18/2023 10:38 AM CDT Temperature 36.8 C (98.3 F) 07/18/2023 10:30 AM CDT Respiratory Rate 16 07/18/2023 10:30 AM CDT Oxygen Saturation 90% 07/18/2023 10:30 AM CDT Inhaled Oxygen Concentration - - Weight 60.3 kg (133 lb) 07/18/2023 10:30 AM CDT Height 165.1 cm (5' 5 ) 07/18/2023 10:30 AM CDT Body Mass Index 22.13 07/18/2023 10:30 AM CDT Plan of Treatment Upcoming Encounters Date Type Department Care Team (Late st Contact Info) Description 06/29/2024 9:45 AM CDT Office Visit [facility] [place] [address] [place] [phone] Suhail Luis MD 4 [facility] [address] [place] [phone] Health Maintenance Due Date Last Done Comments DTAP/TDAP/TD VACCINES (1 - Tdap) 10/07/1971 PNEUMOCOCCAL VACCINE 65+ YEA RS (1 of 2 - PCV) 10/07/1971 COLORECTAL SCREENING 1997 Colorectal Cancer Screening 1997 FIT-DNA Q 3 years 1997 FIT/FOBT Q 1 year 1997 Flex Sig/CT Colonography Q 5 years 1997 ZOSTER VACCINE (1 of 2) 2002 RSV VACCINE (60+ or ) (1 - Risk 60-74 years 1-dose series) 2012 INFLUENZA VACCINE (#1) 2023 BREAST CANCER SCREENING 02/12/2025 02/13/20 24, 08/05/2023, 01/11/2023, Additional history exists OSTEOPOROSIS SCREENING Completed 3, 12/31/2021, 12/31/2021, Additional history exists Procedures Procedure Name Priority Date/Time Associated Diagnosis Comments MAMMO DIAGNOSTIC UNI LEFT W OR WO CAD Routine 02/13/2024 2:08 PM MOLD YARD SUPERVISOR from Last 3 Months Results * MAMMO DIAGNOSTIC UNI LEFT W OR WO CAD (02/13/2024 2:08 PM MOLD YARD SUPERVISOR) Anatomical Region Laterality Modality Breast Left Other Suhail Luis MD MAMMO ORDERABLES Final Result from Last 3 Months Insurance [employer] PPO [facility] AETNA PPO MCR Care Teams Medical Office Scheduler Relationship Specialty Start Date End Date Nu Shirley MD [address] [place] [address] PCP - General Family Practice 07/18/23
--- OUTSIDE RECORDS SUMMARY | 2024-04-16 07:56 | XMS_ITS ---
Author Organization [facility] [address] Address [address] [place] [address] Care Team Providers Care Finance Intern Name Role Phone Nu Shirley MD Primary Care Provider [phone] Active Problems Problem Noted Date Diagnosed Date COPD (chronic obstructive pulmonary disease) Atypical hyperplasia of left breast 11/28/2017 Lobular carcinoma in situ (LCIS) of left breast 11/28/2017 Abnormal ultrasound of breast 09/20/2017 Presence of stent in coronary artery 06/23/2017 Tobacco abuse 06/23/2017 Essential hypertension 06/23/2017 History of non-ST elevation myocardial infarctio n (NSTEMI) 06/23/2017 Coronary artery disease invo lving [place] coronary artery of [place] heart without angina pectoris 06/23/2017 Concussion with loss of consciousness 09/29/2016 Overview (08/31/2021): ICD-10 update Acute maxillary sinusitis 11/27/2015 Overview (06/10/2016): Acute maxillary sinus infection Other peripheral vertigo, unspecified ear 2015 Osteoporosis 08/21/2015 Overview (12/31/2021): Ms. GARSIA has a history of tobacco abuse and COPD (currently smoking) and is here for follow-up on her osteoporosis. She fell and injured her left knee but no fractures. Her exercise is limited by her COPD. For treatment of bone disease she is currently on vitamin D 10,000 international units twice per month. She received IV Reclast in 10/22 and in 11/23 and 11/2019 after taking Forteo (teriparatide) from 09/19 until 11/22. Assessment & Plan (12/31/2021 11:52 AM CDT): Ms. GARSIA has osteoporosis that is likely multifactorial secondary to tobacco use and family history of osteoporosis and advanced age. Her bone density slightly worsened in the spine but given she's had 3 doses of IV Reclast, I'll hold off again on additional medication. If the downward trends continues next year I'll redose her IV Reclast or consider Prolia. She should continue calcium of 7860-9424 mg per day through dietary intake or supplements and stay on vitamin D 10,0000 international units twice per month. Assessment & Plan (12/11/2020 11:48 AM CDT): Ms. GARSIA has osteoporosis that is likely multifactorial secondary to tobacco use and family history of osteoporosis and advanced age. Her bone density has improved. We'll hold off on additional therapy at this time. She should continue calcium of 6408-9690 mg per day through dietary intake or supplements and restart vitamin D 10,0000 international units twice per month and recheck her vitamin D level in 3 months. She can take naproxen for 2 weeks for her neck pain and I've asked her to consult with her primary care doctor regarding further therapy if it continues Assessment & Plan (11/28/2019 8:45 PM CDT): Ms. GARSIA has osteoporosis that is likely multifactorial secondary to tobacco use and family history of osteoporosis and advanced age. Her bone density has improved. She should continue calcium of 4394-6650 mg per day through dietary intake or supplements and vitamin D 2000 IU per day get IV Reclast again Assessment & Plan (11/23/2018 4:00 PM CDT): In summary, Ms. GARSIA has osteoporosis that is likely multifactorial secondary to tobacco use and family history of osteoporosis and advanced age. Her bone density has improved. She should continue calcium of 7579-8133 mg per day through dietary intake or supplements and vitamin D 2000 IU per day get IV Reclast again. Assessment & Plan (10/27/2017 12:06 PM CDT): In summary, Ms. GARSIA has osteoporosis that is likely multifactorial secondary to tobacco use and family history of osteoporosis and advanced age. She's being treated with calcium of 0295-6440 mg per day through dietary intake or supplements and vitamin D 2000 IU per day and Forteo (teriparatide) and she's tolerating it well. Her bone density has improved. Current Oncology Plans No current plan information found. Other Current Plans Zoledronic Acid (Reclast) Infusion* Plan Start Date:01/11/2023 Plan Provider:Ximena Reilly MD Linked Problems Age-related osteoporosis wit hout current pathological fracture Treatment Medications No medications scheduled. Past Plans Radiation Treatments * No radiation treatments are documented for this patient in [facility]. Treatments may have been administered in another system. Lifetime Dose Tracking * Chemical Lifetime Dose Automatic Entry Manual Entr y Air kerma at the reference point (Ka,r) 105 mGy 0 mGy 105 mGy
--- OUTSIDE RECORDS SUMMARY | 2024-04-16 07:56 | XMS_ITS | Referral Summary ---
Author Organization [facility] [address] Address [address] [place] [address] Care Team Providers Care Ict Business Development Manager Name Role Phone Nu Shriley MD Primary Care Provider [phone] Encounters Date Type Department Care Team Description 03/10/2024 11:00 AM MEAT CUTTER Office Visit [facility] at [address] [address] Lurdes Jarvis, SHERIF Great toe pain, left (Primary Dx); Toe infection from Last 3 Months Allergies Active Allergy Reactions Criticality Noted Date Comments Ibandronate Nausea only Low Alendronate Nausea only Low Morphine Nausea & Vomiting Low 09/15/2017 Medications albuterol HFA (PROAIR HFA) 90 mcg/actuation inhaler inhale 2 puff by inhalation route every 4 - 6 hours as needed 0 Inhaler 0 6 Active aspirin 81 mg tablet Take 1 tablet (81 mg total) by mouth daily Active cholecalciferol (VITAMIN D-3) 10,000 unit capsuleIndicati ons:every other day Take 1 capsule (10,000 Units total) by mouth every fourth day Active omeprazole 20 mg tablet,delayed release (DR/EC) Take 1 tablet (20 mg total) by mouth daily Active zoledronic xonk-uhfdshlw-f ater (RECLAST) 5 mg/100 mL piggyback Active tacrolimus (PROTOPIC) 0.1 % ointment 0 Active fluocinonide (LIDEX) 0.05 % external solution APPLY TO SCALP TWICE DAILY 0 Active Breztri Aerosphere 160-9-4.8 mcg/actuation HFA aerosol inhaler Inhale 2 puffs 2 (two) times a day 1 Active fluticasone propionate (FLONASE) 50 mcg/actuation nasal spray USE 1 SPRAY(S) IN EACH NOSTRIL TWICE DAILY 2 Active Space Chamber spacer as directed 3 Active sacubitriL-vals scottie (ENTRESTO) 49-51 mg tabletIndicatio ns:chronic heart failure Take 1 tablet by mouth 2 (two) times a day 60 tablet 11 3 Active ipratropium (ATROVENT) 21 mcg (0.03 %) nasal spray USE 2 SPRAY(S) IN EACH NOSTRIL THREE TIMES DAILY 4 Active spironolactone (ALDACTONE) 25 mg tablet Take 1 tablet (25 mg total) by mouth daily 30 tablet 11 4 06/01/19 25 Active atorvastatin (LIPITOR) 80 mg tablet Take 1 tablet by mouth once daily 90 tablet 4 Active ezetimibe (ZETIA) 10 mg tablet Take 1 tablet (10 mg total) by mouth daily 90 tablet 2 4 Active empagliflozin (Jardiance) 10 mg tablet Take 1 tablet by mouth once daily 90 tablet 1 4 Active roflumilast (DALIRESP) 250 mcg tablet TAKE 1 TABLET BY MOUTH ONCE DAILY FOR 4 WEEKS 4 Active cephalexin (KEFLEX) 500 mg capsuleIndicati ons:Great toe pain, left,Toe infection Take 1 capsule (500 mg total) by mouth 4 (four) times a day for 7 days 28 capsule 5 03/17/19 25 Active Problems Problem Noted Date Diagnosed Date COPD (chronic obstructive pulmonary disease) Atypical hyperplasia of left breast 11/28/2017 Lobular carcinoma in situ (LCIS) of left breast 11/28/2017 Abnormal ultrasound of breast 09/20/2017 Presence of stent in coronary artery 06/23/2017 Tobacco abuse 06/23/2017 Essential hypertension 06/23/2017 History of non-ST elevation myocardial infarctio n (NSTEMI) 06/23/2017 Coronary artery disease invo lving [place] coronary artery of [place] heart without angina pectoris 06/23/2017 Concussion with [...] consider Prolia. She should continue calcium of 2064-8320 mg per day through dietary intake or [...] this time. She should continue calcium of 3475-4818 mg per day through dietary intake or supplements and restart vitamin D 10,0000 international units twice per month and recheck her vitamin D level in 3 months. She can take naproxen for 2 weeks for her neck pain and I've asked her to consult with her primary care doctor regarding further therapy if it continues Assessment & Plan (11/28/2019 8:45 PM CDT): Ms. GARISA has osteoporosis that is likely multifactorial secondary to tobacco use and family history of osteoporosis and advanced age. Her bone density has improved. She should continue calcium of 0703-9857 mg per day through dietary intake or supplements and vitamin D 2000 IU per day get IV Reclast again Assessment & Plan (11/23/2018 4:00 PM CDT): In summary, Ms. GARSIA has osteoporosis that is likely multifactorial secondary to tobacco use and family history of osteoporosis and advanced age. Her bone density has improved. She should continue calcium of 5928-6353 mg per day through dietary intake or supplements and vitamin D 2000 IU per day get IV Reclast again. Assessment & Plan (10/27/2017 12:06 PM CDT): In summary, Ms. GARSIA has osteoporosis that is likely multifactorial secondary to tobacco use and family history of osteoporosis and advanced age. She's being treated with calcium of 0837-8365 mg per day through dietary intake or supplements and vitamin D 2000 IU per day and Forteo (teriparatide) and she's tolerating it well. Her bone density has improved. Social History Tobacco Use Types Packs/Day Years Used Date Smoking Tobacco: Light Smoker Cigarettes Smokeless Tobacco: Never Tobacco Cessation:Ready to Q uit: Not Asked; Counseling Given: Not Answered Alcohol Use Standard Drinks/Week Comments Yes 0 (1 standard drink = 0.6 oz pur e alcohol) social Personal Safety Answer Date Recorded Have you ever been in or are you currently in a harmful physical or emotional relationship or is someone making you feel afraid or unsafe? Denies 03/31/2023 Comments Unknown Sex and Gender Information Value Date Recorded Sex Assigned at Not on file Legal Sex Female 4:14 AM MEAT CUTTER Gender Identity Female 08/11/2017 1:49 PM CDT Sexual Orientation Not on file Last Filed Vital Signs Vital Sign Reading Time Taken Comments Blood Pressure 127/65 03/10/2024 10:49 AM MEAT CUTTER Pulse 94 03/10/2024 10:49 AM MEAT CUTTER Temperature 36.7 C (98.1 F) 03/10/2024 10:49 AM MEAT CUTTER Respiratory Rate 20 03/10/2024 10:49 AM MEAT CUTTER Oxygen Saturation 97% 03/10/2024 10:49 AM MEAT CUTTER Inhaled Oxygen Concentration - - Weight 60.8 kg (134 lb 1.6 oz) 03/10/2024 10:49 AM MEAT CUTTER Height 165.1 cm (5' 5 ) 03/10/2024 10:49 AM MEAT CUTTER Body Mass Index 22.32 03/10/2024 10:49 AM MEAT CUTTER Plan of Treatment Not on file Medical Devices Implanted Type Area Lens Matcher Device Identifier Shelf Expiration Date Model / Serial / Lot Moxie Device Closure Vascade Od5 Fr Femoral Artery [id number] - [id number] Implanted:Qty: 1 on 03/31/2023 by Miguel Mccloud MD at [facility] [employer] [facility] 12/02/2024 [id number] / / [id number] Procedures Procedure Name Priority Date/Time Associated Diagnosis Comments HEPATITIS PANEL, ACUTE Routine 07/05/2023 9:55 AM CDT Acid phosphatase elevated Fatigue Hypopotassemia DEXA TBS AXIAL SKELETON BONE DENSITY 1 OR MORE SITES Schedule Routine, Read Routine (OP Routine) 01/11/2023 10:31 AM MEAT CUTTER Age-related osteoporosis without current pathological fracture from Last 3 Months or Most Recently Relevant to Health Maintenance Results * Hepatitis panel, acute Blood Blood, Venous (07/05/2023 9:55 AM CDT) Hep A IgM Nonreactive Nonreactive Comment: Interpretive Data: If Hep A IgM Ab is reported as Equivocal, a new sample should be drawn in two weeks for testing. Current interpretive data was last revised on 19. Hep B core IgM Nonreactive Nonreactive [facility] Comment: Interpretive Data If HepB Core IgM Ab is reported as Equivocal, a new sample should be drawn in two weeks for testing. Current interpretive data was last revised on 19. Hep C Ab Nonreactive Nonreactive [facility] Comment: Interpretive Data Nonreactive: Antibodies to HCV not detected. Does NOT exclude the possibility of recent exposure to HCV. Equivocal: Equivocal for HCV antibodies. Supplemental molecular testing will be automatically performed to determine infection status in accordance with current CDC screening recommendations. Reactive: Positive for HCV antibodies. This may represent current or past HCV infection. Supplemental molecular testing will be automatically performed to determine current infection status in accordance with current CDC screening recommendations. Interpretive data was last revised on 2019. HepBsAg Nonreactive Nonreactive [facility] Blood (Blood, Venous) 07/05/2023 9:55 AM CDT 07/05/2023 3:12 PM CDT Narrative [facility] - 07/05/2023 5:04 PM CDT Fax results to Dr Nu Shirely [phone] Nu Shirley MD LAB MICROBIOLOGY - [facility] Final Result Performing Organization Address City/State/[facility] Co de Phone Number [facility] [address] [address] Department [place] [address] * Dexa TBS Axial Skeleton Bone Density 1 or more sites (01/11/2023 10:31 AM MEAT CUTTER) Anatomical Region Laterality Modality Wrist, Body N/A Radiographic Batsheva ging Narrative 01/11/2023 4:22 PM MEAT CUTTER Patient Name: Oralia Garsia Date of : 1950 Date of scan: 01/11/2023 Bone mineral density was performed on a Hologic Discovery Densitometer. Based on machine cross-calibration and precision studies the least significant changes of this densitometer is 0.024 g/cm2 at the spine, 0.020 g/cm2 at the total proximal femur, and 0.014g/cm2 at the forearm. HISTORY: This is a 72 y.o. postmenopausal female with a history of breast cancer and osteoporosis. She reports that she has been smoking cigarettes. She has been smoking an average of .1 packs per day. She has never used smokeless tobacco. Currently on treatment with vitamin D, previously treated with alendronate (Fosamax), zoledronic acid (Reclast), teriparatide (Forteo), and anticoagulants, and current complaint of back pain and neck pain. INDICATIONS: Menopause status and history of osteoporosis. FINDINGS: BONE MINERAL DENSITY OF THE LUMBAR SPINE Bone Mineral Density (BMD) of the lumbar spine was measured from L1-L4 and the average density was calculated to be 0.874 gm/cm2. This corresponds to a T-score (standard deviations from the mean of young adults) of -1.6. When compared to the previous study of 12/31/21 there has been a 0.036 gm/cm (4.3%) increase in bone density that is considered significant. BONE MINERAL DENSITY OF THE PROXIMAL FEMUR Bone Mineral Density (BMD) of the left hip total was found to be 0.559 gm/cm2. This corresponds to a T-score standard deviations from the mean of young adults of -3.1. Femoral neck is 0.537 gm/cm2 with a T-score (standard deviations from the mean of young adults) of -2.8. When compared to the previous study of 12/31/21 there has been no significant changes in bone density. SUMMARY: Bone mineral density shows evidence of osteoporosis and marked increase risk of fracture. There has been a significant increase in bone density since previous measurement. ADDITIONAL COMMENTS: Postmenopausal Women and Men Over 50: Diagnostic criteria: Osteoporosis: BMD at or below -2.5 T-score; Osteopenia (low bone mass): BMD between -1.0 and -2.5 T-score. If the patient has a history of a fragility fracture, a fracture that occurred with trauma equivalent to a fall from a standing position or less, then the diagnosis is osteoporosis regardless of bone density. The history and data sections of the bone mineral density scan were prepared by Purnima Mistry who is accredited by the International Society of Clinical Densitometry. The overall patient assessment and scan interpretation were performed by Ximena Reilly M.D. who is certified by the International Society of Clinical Densitometry. [id number] Salud John MD IMG DXA PROCEDURES Final Re sult from Last 3 Months or Most Recently Relevant to Health Maintenance Insurance MEDICARE MEDICARE MEDICARE Care Teams Ict Business Development Manager Relationship Specialty Start Date End Date Nu Shirley MD PCP - General Family Medicine 01/14/21
--- OUTSIDE RECORDS SUMMARY | 2024-04-16 07:56 | XMS_ITS | Clinical Summary ---
Author Organization [facility] Address [address] [place] [address] Care Team Providers Care Clerk Rating Name Role Phone Unavailable Primary Care Provider Unavailabl e Social History Tobacco Use Types Packs/Day Years Used Date Smoking Tobacco: Never Assessed Comments Unknown Sex and Gender Information Value Date Recorded Sex Assigned at Not on file Legal Sex Female 7:01 PM CDT Gender Identity Not on file Sexual Orientation Not on file Plan of Treatment Health Maintenance Due Date Last Done Comments Colorectal Cancer Screening Colonoscopy (10 Years) 1952 Hepatitis C 1970 DTaP, Tdap and Td Vaccines ( 1 - Tdap) 10/07/1971 Mammogram Screening 1992 Zoster Vaccines (1 of 2) 2002 Dexa Scan (General) 2017 Pneumococcal Vaccine: 65+ Ye ars (1 of 1 - PCV) 2017 COVID-19 Vaccine (2023-2 5 season) 2023 Influenza Adult (#1) 2023 RSV Immunization or 60+ Years (1 - 1-dose 75+ series) 10/07/2027 Meningococcal B Vaccine Aged Out No l onger eligible based on patient's age to complete this topic Meningococcal Vaccine Aged Out No allan neri eligible based on patient's age to complete this topic RSV Immunizations Under 20 Months Aged Out No longer eligible based on patient's age to complete this topic
--- OUTSIDE RECORDS SUMMARY | 2024-04-16 07:56 | XMS_ITS | Clinical Summary ---
Author Organization [facility] Address [address] [place] [address] Phone Care Team Providers Care Tax Evaluator Name Role Phone Stacey Wyatt MD Primary Care Provi yarely Allergies Active Allergy Reactions Criticality Noted Date Comments Morphine Nausea,Vomiting 11/24/2017 Medications aspirin EC 81 MG Tablet Delayed Response Take by mouth. Activ e atorvastatin (LIPITOR) 40 MG Tablet Take by mouth. 8 Active irbesartan (AVAPRO) 150 MG Tablet 8 Active nitroGLYCERIN (NITROSTAT) 0.4 MG SL Tablet 8 Active Omeprazole 20 MG Tablet Delayed Response Take by mouth. Activ e albuterol (PROAIR HFA) 108 (90 Base) MCG/ACT Aerosol Solution inhale 2 puff by inhalation route every 4 - 6 hours as needed 6 Active tiotropium (SPIRIVA RESPIMAT) 1.25 MCG/ACT Aerosol Solution inhale 2 puff by inhalation route every day 6 Active budesonide-form oterol fumarate (SYMBICORT) 160-4.5 MCG/ACT Aerosol inhale 2 puff by inhalation route 2 times every day in the morning and evening 6 Active Black Pepper-Turmeric (TURMERIC COMPLEX/BLACK PEPPER PO) Take by mouth 2 times daily. Active Condon-3 Fatty Acids (OMEGA-3 FISH OIL PO) Take by mouth daily. Active POLYSACCHARIDE IRON COMPLEX PO Take by mouth 2 times daily. Active Active Problems Problem Noted Date Diagnosed Date Atypical hyperplasia of left breast 11/28/2017 Lobular carcinoma in situ (LCIS) of left breast 11/28/2017 Family History Medical History Relation Name Comments Hypertension Brother 1 Hypertension Brother 2 Heart Disease Father Stroke Father Bladder cancer Mother Heart Disease Mother Cancer Sister Relation Name Status Comments Brother 1 Brother 2 Father Mother Sister Social History Tobacco Use Types Packs/Day Years Used Date Smoking Tobacco: Former Cigarettes 1 30 Smokeless Tobacco: Never Alcohol Use Standard Drinks/Week Comments Yes 0 (1 standard drink = 0.6 oz pur e alcohol) Comments No Sex and Gender Information Value Date Recorded Sex Assigned at Not on file Legal Sex Female 1:54 PM CDT Gender Identity Not on file Sexual Orientation Not on file Last Filed Vital Signs Vital Sign Reading Time Taken Comments Blood Pressure 156/87 11/24/2017 3:40 PM CDT Pulse 92 11/24/2017 3:40 PM CDT Temperature 35.8 C (96.5 F) 11/24/2017 3:40 PM CDT Respiratory Rate 18 11/24/2017 3:40 PM CDT Oxygen Saturation 96% 11/24/2017 3:40 PM CDT Inhaled Oxygen Concentration - - Weight 75 kg (165 lb 6.4 oz) 11/24/2017 3:40 PM CDT Height 165.1 cm (5' 5 ) 11/24/2017 3:40 PM CDT Body Mass Index 27.52 11/24/2017 3:40 PM CDT Plan of Treatment Health Maintenance Due Date Last Done Comments DEXA Bone Density 1950 Hepatitis C Virus (HCV) Screening 1950 Mammogram 1962 Colonoscopy 1997 Colorectal Cancer Screening 1997 Cologuard 2002 Immunochemical Fecal Occult Blood 2002 Zoster Immunization (1 of 2) 2002 Pneumococcal Immunization (5 0+ years) (2 of 2 - PCV) 07/05/2014 07/05/2013 Influenza Immunization (#1) 2023 SARS-COV-2 Immunization (4 - 2023- season) 2023 12/14/2020, 05/22/2020, 05/01/2020 Respiratory Syncytial Virus (RSV) Immunization (Adult) (1 - 1-dose 75+ series) 10/07/2027 DTaP/Tdap/Td Immunization Discontinued 03/28/2006 TdaP Immunization Completed 03/28/2006 Pneumococcal Immunization Combined Discontinued 07/05/2013 Hepatitis B Immunization Aged Out No longer eligible based on patient's age to complete this topic Meningococcal Immunization (ACWY) Aged Out No longer eligible based on patient's age to complete this topic Rotavirus Immunization Aged Out No lo nger eligible based on patient's age to complete this topic Insurance MEDICARE [facility] Care Teams Tax Evaluator Relationship Specialty Start Date End Date Stacey Wyatt MD [address] [place] [address] PCP - General Family Medicine 11/24/17
--- OUTSIDE RECORDS SUMMARY | 2024-04-16 07:56 | XMS_ITS | Clinical Summary ---
Author Organization [facility] [address] Address [address] [place] [address] Care Team Providers Care Filler Picker Name Role Phone Nu Shirley MD Primary Care Provider [phone] Allergies Active Allergy Reactions Criticality Noted Date [...] mg total) by mouth daily Active zoledronic cppb-vnjlljyd-o ater (RECLAST) 5 mg/100 mL piggyback Active [...] (NSTEMI) 06/23/2017 Coronary artery disease invo lving stebbins coronary artery of stebbins heart without angina pectoris 06/23/2017 Concussion with [...] consider Prolia. She should continue calcium of 6364-0160 mg per day through dietary intake or [...] this time. She should continue calcium of 6557-1282 mg per day through dietary intake or [...] has improved. She should continue calcium of 3868-5090 mg per day through dietary intake or supplements and vitamin D 2000 IU per day get IV Reclast again Assessment & Plan (11/23/2018 4:00 PM CDT): In summary, Ms. GARSIA has osteoporosis that is likely multifactorial secondary to tobacco use and family history of osteoporosis and advanced age. Her bone density has improved. She should continue calcium of 8274-0103 mg per day through dietary intake or supplements and vitamin D 2000 IU per day get IV Reclast again. Assessment & Plan (10/27/2017 12:06 PM CDT): In summary, Ms. GARSIA has osteoporosis that is likely multifactorial secondary to tobacco use and family history of osteoporosis and advanced age. She's being treated with calcium of 4346-0485 mg per day through dietary intake or supplements and vitamin D 2000 IU per day and Forteo (teriparatide) and she's tolerating it well. Her bone density has improved. Encounters Date Type Department Care Team Description 03/10/2024 11:00 AM TERADATA DEVELOPER Office Visit [facility] at [address] [address] Lurdes Jarvis NP Great toe pain, left (Primary Dx); Toe infection from Last 3 Months Surgical History Surgery Date Site/Laterality Comments HYSTERECTOMY KNEE SURGERY CARDIAC CATHETERIZATION BREAST SURGERY JOINT REPLACEMENT 03/07/2005 - 03/06/2006 CARDIAC STENT PLACEMENT Medical History Medical History Date Comments Asthma Asthma Bronchitis Bronchitis; Comm ents: NB 11/28/2015 -Chronic Hx Other Medical Acid reflux Hypertension Heart attack (HCC) Hypercholesteremia Cancer (CMS/HCC) (HCC) pre-cance pita breast Osteoporosis GERD (gastroesophageal reflux disease) ? Brain concussion 2009 Chronic bronchitis (HCC) Emphysema of lung (HCC) CHF (congestive heart failur e) (CMS/HCC) (HCC) Family History Medical History Relation Name Comments Osteoporosis Mother Scoliosis Mother Arthritis Other 1 Diabetes Other 1 Family history of Diabetes mellitus; Heart disease Other 1 Cancer Other 2 Family history of Cancer, unknown; Hypertension Other 3 Family history of Hypertension; Relation Name Status Comments Mother Other 1 Other 2 Other 3 Social History Tobacco Use Types Packs/Day Years [...] on file Legal Sex Female 4:14 AM TERADATA DEVELOPER Gender Identity Female 08/11/2017 1:49 PM CDT Sexual Orientation Not on file Obstetrics History Last Filed Vital Signs Vital Sign Reading Time Taken Comments Blood Pressure 127/65 03/10/2024 10:49 AM TERADATA DEVELOPER Pulse 94 03/10/2024 10:49 AM TERADATA DEVELOPER Temperature 36.7 C (98.1 F) 03/10/2024 10:49 AM TERADATA DEVELOPER Respiratory Rate 20 03/10/2024 10:49 AM TERADATA DEVELOPER Oxygen Saturation 97% 03/10/2024 10:49 AM TERADATA DEVELOPER Inhaled Oxygen Concentration - - Weight 60.8 kg (134 lb 1.6 oz) 03/10/2024 10:49 AM TERADATA DEVELOPER Height 165.1 cm (5' 5 ) 03/10/2024 10:49 AM TERADATA DEVELOPER Body Mass Index 22.32 03/10/2024 10:49 AM TERADATA DEVELOPER Plan of Treatment Health Maintenance Due Date Last Done Comments Breast Cancer Screening-Mammogram 1950 Colon Cancer Screening-Colonoscopy 1950 Depression Screening 1952 Hepatitis B Screening 1970 DTaP/Tdap/Td Vaccine (2 - Td or Tdap) 03/28/2016 03/28/2006 Well Visit 65+ 2017 Influenza Vaccine (#1) 2023 11/13/2019, 2018 Fall Risk Assessment 03/31/2024 03/31/2023, 12/12/19 20 Osteoporosis Screening-Bone Density Scan 01/11/2025 01/11/2023, 12/31/2021, 12/31/2021, Additional history exists Zoster Vaccine Completed 08/29/2018, 05/18/2018 Pneumococcal vaccine 65+ Completed 020, 12/01/2017, 07/05/2013 Hepatitis C Screening Completed 07/05/2023 Medical Devices Implanted Type Area Diffusion Furnace Operator Device Identifier Shelf Expiration Date Model / Serial / Lot JulioPocket Change Card Device Closure Vascade Od5 Fr Femoral Artery [id number] - [id number] Implanted:Qty: 1 on 03/31/2023 by Miguel Mccloud MD at [facility] [employer] 12/02/2024 [id number] / / [id number] Procedures Procedure Name Priority Date/Time Associated Diagnosis Comments HEPATITIS PANEL, ACUTE Routine 07/05/2023 9:55 AM CDT Acid phosphatase elevated Fatigue Hypopotassemia DEXA TBS AXIAL SKELETON BONE DENSITY 1 OR MORE SITES Schedule Routine, Read Routine (OP Routine) 01/11/2023 10:31 AM TERADATA DEVELOPER Age-related osteoporosis without current pathological fracture from [...] 19. Hep B core IgM Nonreactive Nonreactive [facility] Comment: Interpretive Data If HepB Core IgM Ab is reported as Equivocal, a new sample should be drawn in two weeks for testing. Current interpretive data was last revised on 19. Hep C Ab Nonreactive Nonreactive [facility] Comment: Interpretive Data Nonreactive: Antibodies to HCV [...] last revised on 2019. HepBsAg Nonreactive Nonreactive [facility] Blood (Blood, Venous) 07/05/2023 9:55 AM CDT 07/05/2023 3:12 PM CDT Narrative [facility] - 07/05/2023 5:04 PM CDT Fax results to Dr Nu Shirley [phone] Nu Shirley MD LAB MICROBIOLOGY - [facility] Final Result [facility] [address] Department [place] [address] * Dexa TBS Axial Skeleton Bone Density 1 or more sites (01/11/2023 10:31 AM TERADATA DEVELOPER) Anatomical Region Laterality Modality Wrist, Body N/A Radiographic Batsheva ging Narrative 01/11/2023 4:22 PM TERADATA DEVELOPER Patient Name: Oralia Garsia Date of : 1950 Date of scan: 01/11/2023 Bone mineral density was performed on a HoloCalix Discovery Densitometer. Based on machine cross-calibration and [...] by the International Society of Clinical Densitometry. [id number] Salud John MD IMG DXA PROCEDURES Final Re sult from Last 3 Months or Most Recently Relevant to Health Maintenance Insurance T MEDICARE MEDICARE MEDICARE Care Teams Filler Picker Relationship Specialty Start Date End Date Nu Shirley MD PCP - General Family Medicine 01/14/21
--- OUTSIDE RECORDS SUMMARY | 2024-04-16 07:57 | XMS_ITS | Clinical Summary ---
Author Organization [facility] [employer] Address [address] [place] [address] Care Team Providers Care E Commerce Strategist Name Role Phone Rafael Ruiz MD Primary Care Provider [phone] Source Comments [facility] [employer],non-owned Affiliates and Associated Physician Practices is amultiple site organization consisting of ambulatory clinics and hospital sitesin [place], [place], [place] and [place]. This disclosure is being madepursuant to the Care Everywhere program and may not contain all information available regarding this patient. Last updated 17.[facility] [employer] Allergies Active Allergy Reactions Criticality Noted Date Comments Morphine Nausea and/or Vomiting Low 08/19/2014 Medications * Be aware that medications may not be up to date on this document. Alwaysverify current medications with the patient. Medication Sig Dispensed Refills Start Date End Date Status diazePAM (VALIUM) 2 MG tablet Take 2 mg by mouth q12h PRN. 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 Other peripheral vertigo, unspecified ear 2015 Family History Medical History Relation Name Comments CVA Father Heart Disease Father Status: Deceas ed Cancer Mother bladder-metasta tic; Status: Relation Name Status Comments Father Mother Social History Tobacco Use Types Packs/Day Years Used Date Smoking Tobacco: Every Day Cigarettes Smokeless Tobacco: Never Alcohol Use Standard Drinks/Week Comments Yes 0.8 (1 standard drink = 0.6 oz p ure alcohol) Sex and Gender Information Value Date Recorded Sex Assigned at Not on file Gender Identity Not on file Sexual Orientation Not on file Last Filed Vital Signs Vital Sign Reading Time Taken Comments Blood Pressure 210/113 09/22/2015 11:20 AM CDT Pulse 85 09/22/2015 11:20 AM CDT Temperature 36.7 C (98 F) 09/22/2015 11:20 AM CDT Respiratory Rate 18 09/22/2015 11:20 AM CDT Oxygen Saturation - - Inhaled Oxygen Concentration - - Weight 66.2 kg (146 lb) 09/22/2015 11:20 AM CDT Height 165.1 cm (5' 5 ) 09/22/2015 11:20 AM CDT Body Mass Index 24.3 09/22/2015 11:20 AM CDT Plan of Treatment Health Maintenance Due Date Last Done Comments BONE DENSITY TESTING 1950 COLOGUARD (AGES 45-75) - COL ON CA SCREENING 1952 COLON MONITORING 1952 COLONOSCOPY - COLON CA SCREENING 1952 CT COLONOGRAPHY - COLON CA SCREENING 1950 Colorectal Cancer Screening 1952 FIT - COLON CA SCREENING 1952 FLEX SIG - COLON CA SCREENING 1952 LIPID TESTING 1950 MAMMOGRAM 1950 MEDICARE AWV 12 MONTHS 1950 HEPATITIS C SCREENING 10/02/1970 DTAP/TDAP/TD VACCINES (1 - Tdap) 10/07/1971 PNEUMOCOCCAL VACCINE 50+ (1 of 2 - PCV) 10/07/1971 ZOSTER VACCINE (1 of 2) 2002 COVID-19 VACCINE ( - 2023-2 5 season) 2023 INFLUENZA VACCINE (#1) 2023 DEPRESSION SCREENING 03/07/2024 Respiratory Syncytial Virus (RSV) Vaccine Pt: or over 60 yrs (1 - 1-dose 75+ series) 10/07/2027 HEPATITIS B VACCINE Aged Out No longe r eligible based on patient's age to complete this topic HIB VACCINE Aged Out No longer eligi ble based on patient's age to complete this topic HPV VACCINE Aged Out No longer eligi ble based on patient's age to complete this topic MENINGOCOCCAL (Group B) VACCINE Aged Out No longer eligible based on patient's age to complete this topic MENINGOCOCCAL VACCINE Aged Out No allan neri eligible based on patient's age to complete this topic Care Teams E Commerce Strategist Relationship Specialty Start Date End Date Rafael Ruiz MD [address] [place] [address] PCP - General 08/19/14
--- OUTSIDE RECORDS SUMMARY | 2024-04-16 07:57 | XMS_ITS | Encounter Summary ---
Author Organization [facility] Address [address] [place] [address] Care Team Providers Care Associate Professor Of Anthropology Name Role Phone Rafael Ruiz MD Primary Care Provider [phone] Encounter Details Date Type Department Care Team (Late st Contact Info) Description 12/12/2019 Lab Requisition [facility] [address] [place] [address] Mireya Shahid MD [address] [facility] [address] [place] [address] Social History Tobacco Use Types Packs/Day Years Used Date Smoking Tobacco: Every Day Cigarettes Smokeless Tobacco: Never Alcohol Use Standard Drinks/Week Comments Yes 0.8 (1 standard drink = 0.6 oz p ure alcohol) Sex and Gender Information Value Date Recorded Sex Assigned at Not on file Gender Identity Not on file Sexual Orientation Not on file documented as of this encounter Plan of Treatment Not on file documented as of this encounter Procedures Procedure Name Priority Date/Time Associated Diagnosis Comments DERMATOPATHOLOGY Routine 12/11/2019 12:0 0 AM CDT documented in this encounter Results * DERMATOPATHOLOGY (12/11/2019 12:00 AM CDT) Case Report Dermatopathology Report Case: [id number] Authorizing Provider: Mireya Shahid MD Collected: 12/11/2019 12:00 AM Ordering Location: [facility] Lab Received: 12/12/2019 05:52 AM Pathologist: La Washington MD Specimen: Skin, left scalp 0 5:41 PM CDT DERMATOPATHOLOGY LABORATORY Final Diagnosis Specimen A. SKIN, left scalp: PSORIASIFORM DERMATITIS (L44.8) (see microscopic description and comment) 0 5:41 PM CDT DERMATOPATHOLOGY LABORATORY Clinical History R/O PSO, Eczema, CTD drug 0 5:41 PM CDT DERMATOPATHOLOGY LABORATORY Gross Description Specimen A: Received is one formalin filled container labeled with the patient's name and designated left scalp. The specimen consists of a punch biopsy measuring 4x4x7 mm, bisected. Jar 0. 0 5:41 PM CDT DERMATOPATHOLOGY LABORATORY Microscopic Description Specimen A. SKIN, left scalp: There is psoriasiform hyperplasia of the epidermis with focal parakeratosis and spongiosis. There is a superficial, mainly lymphohistiocytic inflammatory infiltrate. Periodic acid-Dakota (PAS) stain fails to highlight fungal elements in the available sections and does not show a thickened membrane zone. COMMENT: The histological differential diagnosis includes early / partially treated psoriasis and a chronic eczematous dermatitis. 0 5:41 PM CDT DERMATOPATHOLOGY LABORATORY Disclaimer An external and internal positive and negative controls are appropriate for the histochemical, immunohistochemical and immunofluorescence stain(s) in this case (if any), except where stated explicitly. The performance characteristics of the stain(s) cited in this report were developed and its performance characteristic determined by the Dermatopathology Laboratory at [facility], directed by Dr. Sabina Washington. These tests need not be, and therefore are not, approved by the [place] Food and Drug Administration. The tests are used for clinical purposes. Billing Codes Specimen Charges Stain Charges 33343 1 98343 1 0 5:41 PM CDT DERMATOPATHOLOGY LABORATORY Embedded Images 0 5:41 PM CDT DERMATOPATHOLOGY LABORATORY Pathology/Cytolog y TISSUE SPECIMEN FROM SKIN / Unknown 12/11/2019 12/12/2019 5:52 AM CDT Mireya Shahid MD LAB - PATHOLOGY/CYTO LOGY ORDERABLES DERMATOPATHOLOGY LABORATORY [facility] - Department of Dermatology [facility] [address] [place] [address], [address] [phone] documented in this encounter Visit Diagnoses Not on filedocumented in this encounter Care Teams Associate Professor Of Anthropology Relationship Specialty Start Date End Date Rafael Ruiz MD [address] [place], [place] [id number] PCP - General 08/19/14 documented as of this encounter
--- OUTSIDE RECORDS SUMMARY | 2024-04-16 07:57 | XMS_ITS | Patient Health Summary ---
Author Organization [facility] Address [address] [place] [address] Care Team Providers Care Manager Gaming Name Role Phone Rafael Ruiz MD Primary Care Provider [phone] Note from [facility],non-owned Affiliates and Associated Physician Practices is amultiple site organization consisting of ambulatory clinics and hospital sitesin [place], [place], [place] and [place]. This disclosure is being madepursuant to the Care Everywhere program and may not contain all information available regarding this patient. Last updated 17.[facility] Allergies * Morphine(Nausea and/or Vomiting) -Low Criticality Medications * Be aware that medications may not be up to date on this document. Alwaysverify current medications with the patient. * diazePAM (VALIUM) 2 MG tablet(Started 09/22/2015) Take 2 mg by mouth q12h PRN. 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 Other peripheral vertigo, unspecified ear 2015 Social History Tobacco Use Types Packs/Day Years [...] Mass Index 24.3 09/22/2015 11:20 AM CDT Procedures * DERMATOPATHOLOGY(Performed 06/15/2022) * DERMATOPATHOLOGY(Performed 06/11/2021) * DERMATOPATHOLOGY(Performed 12/11/2019) * MRI BREAST BILAT WWO CONTRAST(Performed 10/12/2017) Performed for Atypical lobular hyperplasia of left breast * CREATININE BLOOD - POCT (IP) [facility](Performed 10/12/2017) Performed for Atypical lobular hyperplasia of left breast * DERMATOPATHOLOGY(Performed 07/01/2010) Results * DERMATOPATHOLOGY (06/15/2022 12:00 AM CDT) Only the most recent of4 resultswithin the time period is included. Case Report Dermatopathology Report Case: [id number] Authorizing Provider: Mireya Shahid MD Collected: 06/15/2022 12:00 AM Ordering Location: [facility] DermPath Lab Received: 06/15/2022 04:50 PM Pathologist: La Washington MD Specimen: Skin, upper back 3 4:37 PM CDT DERMATOPATHOLOGY LABORATORY Final Diagnosis Specimen A. SKIN, upper back: BENIGN VERRUCOUS KERATOSIS, INFLAMED (L82.1) 3 4:37 PM CDT DERMATOPATHOLOGY LABORATORY Clinical History NON HEALING [place] PSO/BVK/SCC 3 4:37 PM CDT DERMATOPATHOLOGY LABORATORY Gross Description Specimen A: Received is one formalin filled container labeled with the patient's name and designated upper back. The specimen consists of a shave biopsy measuring 5x5x1 mm. Jar 0. 3 4:37 PM CDT DERMATOPATHOLOGY LABORATORY Microscopic Description Specimen A. SKIN, upper back: Sections show hyperkeratosis, papillomatosis, hypergranulosis, and acanthosis. Inflammatory cells are present within the dermis. These histological findings can be seen in a verruca vulgaris or a seborrheic keratosis. 3 4:37 PM CDT DERMATOPATHOLOGY LABORATORY Disclaimer An external and internal positive and negative controls are appropriate for the histochemical, immunohistochemical and immunofluorescence stain(s) in this case (if any), except where stated explicitly. The performance characteristics of the stain(s) cited in this report were developed and its performance characteristic determined by the Dermatopathology Laboratory at [facility], directed by Dr. Sabina Washington. These tests need not be, and therefore are not, approved by the [place] Food and Drug Administration. The tests are used for clinical purposes. Billing Codes Specimen Charges Stain Charges 01032 1 3 4:37 PM CDT DERMATOPATHOLOGY LABORATORY Embedded Images 3 4:37 PM CDT DERMATOPATHOLOGY LABORATORY Pathology/Cytolog y TISSUE SPECIMEN FROM SKIN / Unknown 06/15/2022 06/15/2022 4:50 PM CDT Mireay Shahid MD LAB - PATHOLOGY/CYTO LOGY ORDERABLES DERMATOPATHOLOGY LABORATORY [facility] - Department of Dermatology [address], [address] [phone] * MRI BREAST BILAT WWO CONTRAST (10/12/2017 8:06 AM CDT) Anatomical Region Laterality Modality Breast Bilateral Magnetic Resonan ce 10/12/2017 10:5 4 AM CDT Impressions 10/12/2017 4:50 PM CDT IMPRESSION: Right breast: No suspicious findings on breast MRI within the right breast. Left breast: Postbiopsy changes including hematoma and clips. No definite adjacent enhancing masses are seen in the region of biopsy. ASSESSMENT: BI-RADS Category 2: Benign finding(s). RECOMMENDATION: Management per the patient's breast surgeon. I, Dr. SUZIE OLIVEIRA M.D. have personally reviewed and interpreted this examination/study. This report was electronically signed by SUZIE OLIVEIRA M.D. on 10/12/2017 4:50 PM . Narrative 10/12/2017 4:50 PM CDT BILATERAL BREAST MRI HISTORY: 66-year-old female status-post ultrasound-guided biopsy of the left breast in September, followed by stereotactic-guided biopsy of the left breast in October for mammographic findings and sonographic findings, with reported atypical lobular hyperplasia of the left breast. COMPARISON: Comparison was made to previous outside hospital mammograms from 09/02/2017, 08/24/2016, and 08/19/2015, and outside hospital ultrasound of the breast from 09/02/2017. TECHNIQUE: Multiplanar multisequence MR imaging of both breasts before and following the administration of 7 cc of Gadavist. Dynamic phase imaging was performed in the axial plane. Exam was processed by and interpreted on a [employer] server administrator including 3-D volume rendering, subtraction image processing and contrast kinetic analysis. FINDINGS: Background tissue pattern: Scattered areas of fibroglandular tissue is seen. Degree of background parenchymal enhancement: mild. RIGHT BREAST: No suspicious enhancing mass or nonmass enhancement is seen. There is no abnormality of the right axilla, chest wall, or nipple areolar complex. LEFT BREAST: Postbiopsy hematomas of differing ages are present in the left outer breast. The older hematoma is T1 hyperintense and is located in the anterior region, measuring 1.5 x 0.8 cm (series 5, image 81). The newer hematoma is T1 hypointense and is located in the mid-posterior region, measuring 2.0 x 1.5 cm (series 5, image 84). Susceptibility artifact secondary to biopsy clips are seen at both sites. No suspicious enhancing mass or nonmass enhancement is seen. There is no abnormality of the left axilla, chest wall, or nipple areolar complex. EXTRAMAMMARY FINDINGS: No significant extramammary findings are identified. Kiersten Baker DO MR ORDERABLES * CREATININE BLOOD - POCT (IP) [facility] (10/12/2017 6:45 AM CDT) Creatinine POCT 0.99 0.3 - 1.3 mg/dL [facility] POCT TESTING eGFR POCT 60 60 ml/min [facility] POCT TESTING Blood BLOOD SPECIMEN / Unknown 10/12/2017 6:45 AM CDT Kiersten Baker DO LAB - POINT OF CARE ORDERABLES [facility] POCT TESTING [id number] [phone] Care Teams Manager Gaming Relationship Specialty Start Date End Date Rafael Ruiz MD [address] [place] [address] PCP - General 08/19/14
--- OUTSIDE RECORDS SUMMARY | 2024-04-16 07:57 | XMS_ITS | Referral Summary ---
Author Organization [facility] [employer] Address [address] [place] [address] Care Team Providers Care Spear Fisher Name Role Phone Rafael Ruiz MD Primary Care Provider [phone] Source Comments [facility] [employer],non-owned Affiliates and Associated Physician Practices is amultiple site organization consisting of ambulatory clinics and hospital sitesin [place], [place], [place] and [place]. This disclosure is being madepursuant to the Care Everywhere program and may not contain all information available regarding this patient. Last updated 17.[facility] [employer] Allergies Active Allergy Reactions Criticality Noted Date [...] 09/22/2015 11:20 AM CDT Plan of Treatment Not on file Care Teams Spear Fisher Relationship Specialty Start Date End Date Rafael Ruiz MD [address] [place] [address] PCP - General 08/19/14
== END 2024-04-16 07:53 | disposition home or self-care (01) ==
PROVIDERS: PCP Family Medicine; Visit Provider Nurse Practitioner Family
DX: R91.1 Solitary pulmonary nodule (principal); J84.9 Interstitial pulmonary disease, unspecified
CPT/HCPCS: 71250

== ENCOUNTER 2024-05-29 09:06 | Outpatient (CLI) | payer MEDICARE, SELFPAY ==
--- NOTE | ~2024-05-29 | PE_ITS ---
EXAMINATION: PET skull to mid thigh DATE: 05/29/2024 12:11 INDICATION: Solitary pulmonary nodule TECHNIQUE: Blood glucose level was 103 mg/dL. 10.897 mCi of 18-fluorodeoxyglucose (18-FDG) was admini stered i.v. Low dose computed tomography (CT) images were acquired from the base of the brain to the proximal thighs for attenuation correction and anatomic localization. Positron emission tomography (P ET) images were acquired in the same distribution beginning 89 minutes after injection. Images includ ing fused PET/CT images were reconstructed in axial, coronal, and sagittal planes. Automated exposure control technique was employed. The dose-length product was 561.80mGy-cm. COMPARISON: Chest CT dated 04/16/2024 FINDINGS: Head/neck: There is symmetric increased activity in the oral cavity, palatine tonsils, laryngeal muscles and ocu lar muscles without CT correlate, likely physiologic. Mild increased FDG uptake with maximal SUV of 4 .9 associated with a 5 mm nodule in the deep left parotid lobe. Small focus of mild uptake with maxim al SUV of 3.7 without evident correlate in the region of the cephalad aspect of the right thyroid lob e. Mild likely physiologic increased uptake in the lower cervical paraspinal musculature. No patholog ically enlarged cervical lymphadenopathy or other suspicious foci of increased FDG uptake in the visu alized head or neck. Chest: Mild emphysema. Prominent increased FDG uptake with maximal SUV of 13.5 associated with an 11 mm subp leural nodule in the left upper lobe. Large calcified nodule in the right lower lobe along with calci fied right hilar and mediastinal lymph nodes consistent with old granulomatous disease. Significant i mprovement in the region of groundglass opacity in the lateral basilar segment of the right lower lob e with mild peripheral FDG uptake with maximal SUV of 4.1 consistent with improving pneumonia. No ple ural effusion. Heart size is normal. Atherosclerotic coronary artery calcifications. No pericardial e ffusion. Thoracic aorta is normal in caliber. No pathologically enlarged or FDG avid thoracic lymphad enopathy. There is additional likely physiologic increased uptake bilaterally along the thoracic post erior paraspinal musculature. Abdomen/pelvis/proximal thighs: Physiologic renal accumulation and excretion of FDG activity in the kidneys, bladder and along portio ns of ureters. Diffuse hepatic steatosis. Normal degree and heterogenous pattern of increased uptake throughout the liver without radiologic correlate or dominant FDG avid lesion. The gallbladder, pancr eas, spleen and bilateral adrenal glands are normal. Mild to moderate uptake scattered throughout the bowels without radiologic correlate, also likely physiologic. Scattered colonic diverticula without adjacent from trace stranding to suggest diverticulitis. No other abnormal foci of increased FDG upta ke or pathologically enlarged lymphadenopathy in the abdomen, pelvis or proximal thighs. Musculoskeletal: Scattered degenerative skeletal changes including severe disc height loss at L5-S1 and moderate lower lumbar facet osteoarthritis and otherwise mild. No suspicious lytic, blastic or abnormally FDG avid bone lesions. IMPRESSION: 1. Moderate increased FDG uptake associated with an enlarging now 11 mm left upper lobe nodule which is concerning for primary bronchogenic carcinoma. The patient is a biopsy candidate not on supplement al oxygen at baseline would recommend further evaluation with CT-guided biopsy. 2. Indeterminate 5 mm left parotid nodule with mild increased uptake which could represent a reactive lymph node or neoplasm either benign or malignant. Could consider percutaneous ultrasound guided bio psy if visible by ultrasound. 3. Small focus of mild uptake in the region of the cephalad aspect of the right thyroid lobe. Could c onsider thyroid ultrasound for risk stratification. Reviewed, dictated and finalized at location B. IMPRESSION: 1. Moderate increased FDG uptake associated with an enlarging now 11 mm left up per lobe nodule which is concerning for primary bronchogenic carcinoma. The pat ient is a biopsy candidate not on supplemental oxygen at baseline would recomme nd further evaluation with CT-guided biopsy. 2. Indeterminate 5 mm left parotid nodule with mild increased uptake which coul d represent a reactive lymph node or neoplasm either benign or malignant. Could consider percutaneous ultrasound guided biopsy if visible by ultrasound. 3. Small focus of mild uptake in the region of the cephalad aspect of the right thyroid lobe. Could consider thyroid ultrasound for risk stratification.
[2024-05-29 09:31] LABS: Glucose Point of Care 103 mg/dl (65-105)
--- OUTSIDE RECORDS SUMMARY | 2024-05-29 10:07 | XMS_ITS | Encounter Summary ---
Author Organization [facility] Address [address] [place] [address] Care Team Providers Care Double Cutter Name Role Phone Rafael Ruiz MD Primary Care Provider [phone] Encounter Details Date Type Department Care Team (Late st Contact Info) Description 12/12/2019 Lab Requisition [facility] Derm[facility] Lab [address] [place] [address] Mireya Shahid MD [address] [address] [place] [address] Social History Tobacco Use Types Packs/Day Years [...] AM CDT) Case Report Dermatopathology Report Case: [id number] Authorizing Provider: Mireya Shahid MD Collected: 12/11/2019 12:00 AM Ordering Location: [facility] Derm[facility] Lab Received: 12/12/2019 05:52 AM Pathologist: [...] characteristic determined by the Dermatopathology Laboratory at [facility], directed by Dr. Sabina Washington. These tests need not be, and therefore are not, approved by the [place] Food and Drug Administration. The tests are used for clinical purposes. Billing Codes Specimen Charges Stain Charges 58632 1 19595 1 0 5:41 PM CDT DERMATOPATHOLOGY LABORATORY Embedded Images 0 5:41 PM CDT DERMATOPATHOLOGY LABORATORY Pathology/Cytolog y TISSUE SPECIMEN FROM SKIN / Unknown 12/11/2019 12/12/2019 5:52 AM CDT Mireya Shahid MD LAB - PATHOLOGY/CYTO LOGY ORDERABLES DERMATOPATHOLOGY LABORATORY [facility] - Department of Dermatology [facility] Specialized Medicine [address] [place] [address], [address] [phone] documented in this encounter Visit Diagnoses Not on filedocumented in this encounter Care Teams Double Cutter Relationship Specialty Start Date End Date Rafael Ruiz MD [address] [place], [place] [id number] PCP - General 08/19/14 documented as of this encounter
--- OUTSIDE RECORDS SUMMARY | 2024-05-29 10:07 | XMS_ITS | Clinical Summary ---
Author Organization [facility] [address] Address [address] [place] [address] Care Team Providers Care Undertaker Helper Name Role Phone Nu Shirley MD Primary Care Provider [phone] Allergies Active Allergy Reactions Criticality Noted Date Comments Ibandronate Nausea only Low Alendronate Nausea only Low Morphine Nausea & Vomiting Low 09/15/2017 Medications albuterol HFA (PROAIR HFA) 90 mcg/actuation inhaler inhale 2 puff by inhalation route every 4 - 6 hours as needed 0 Inhaler 0 11/27/19 16 Active aspirin 81 mg tablet Take 1 tablet (81 mg total) by mouth daily Active cholecalcifero l (VITAMIN D-3) 10,000 unit capsuleIndicat ions:every other day Take 1 capsule (10,000 Units total) by mouth every fourth day Active omeprazole 20 mg tablet,delayed release (DR/EC) Take 1 tablet (20 mg total) by mouth daily Active zoledronic acid-mannitol- water (RECLAST) 5 mg/100 mL piggyback Active tacrolimus (PROTOPIC) 0.1 % ointment 12/12/19 20 Active fluocinonide (LIDEX) 0.05 % external solution APPLY TO SCALP TWICE DAILY 12/11/19 20 Active Breztri Aerosphere 160-9-4.8 mcg/actuation HFA aerosol inhaler Inhale 2 puffs 2 (two) times a day 12/15/19 21 Active fluticasone propionate (FLONASE) 50 mcg/actuation nasal spray USE 1 SPRAY(S) IN EACH NOSTRIL TWICE DAILY 08/11/19 22 Active Space Chamber spacer as directed 12/23/19 23 Active ipratropium (ATROVENT) 21 mcg (0.03 %) nasal spray USE 2 SPRAY(S) IN EACH NOSTRIL THREE TIMES DAILY 05/27/19 24 Active spironolactone (ALDACTONE) 25 mg tablet Take 1 tablet (25 mg total) by mouth daily 30 tablet 11 06/01/19 24 025 Active atorvastatin (LIPITOR) 80 mg tablet Take 1 tablet by mouth once daily 90 tablet 06/08/19 24 Active ezetimibe (ZETIA) 10 mg tablet Take 1 tablet (10 mg total) by mouth daily 90 tablet 2 12/19/19 24 Active empagliflozin (Jardiance) 10 mg tablet Take 1 tablet by mouth once daily 90 tablet 1 02/24/20 24 Active roflumilast (DALIRESP) 250 mcg tablet TAKE 1 TABLET BY MOUTH ONCE DAILY FOR 4 WEEKS 02/16/20 24 Active sacubitriL-joaquín sartan (Entresto) 49-51 mg tablet Take 1 tablet by mouth twice daily 180 tablet 05/02/19 25 Active sacubitriL-joaquín sartan (ENTRESTO) 49-51 mg tabletIndicati ons:chronic heart failure Take 1 tablet by mouth 2 (two) times a day 60 tablet 11 02/01/20 23 025 Discontinued Active Problems Problem Noted Date Diagnosed Date COPD (chronic obstructive pulmonary disease) Atypical hyperplasia of left breast 11/28/2017 Lobular carcinoma in situ (LCIS) of left breast 11/28/2017 Abnormal ultrasound of breast 09/20/2017 Presence of stent in coronary artery 06/23/2017 Tobacco abuse 06/23/2017 Essential hypertension 06/23/2017 History of non-ST elevation myocardial infarctio n (NSTEMI) 06/23/2017 Coronary artery disease invo lving [place] coronary artery of [place] heart without angina pectoris 06/23/2017 Concussion with [...] consider Prolia. She should continue calcium of 9303-6341 mg per day through dietary intake or [...] this time. She should continue calcium of 7386-5008 mg per day through dietary intake or [...] has improved. She should continue calcium of 6443-3416 mg per day through dietary intake or supplements and vitamin D 2000 IU per day get IV Reclast again Assessment & Plan (11/23/2018 4:00 PM CDT): In summary, Ms. GARSIA has osteoporosis that is likely multifactorial secondary to tobacco use and family history of osteoporosis and advanced age. Her bone density has improved. She should continue calcium of 6795-8004 mg per day through dietary intake or supplements and vitamin D 2000 IU per day get IV Reclast again. Assessment & Plan (10/27/2017 12:06 PM CDT): In summary, Ms. GARSIA has osteoporosis that is likely multifactorial secondary to tobacco use and family history of osteoporosis and advanced age. She's being treated with calcium of 6342-3676 mg per day through dietary intake or supplements and vitamin D 2000 IU per day and Forteo (teriparatide) and she's tolerating it well. Her bone density has improved. Encounters Date Type Department Care Team Description 03/10/2024 11:00 AM ROTARY SHEAR OPERATOR Office Visit [facility] at [address] [address] Lurdes Jarvis NP Great toe [...] reflux Hypertension Heart attack (HCC) Hypercholesteremia Cancer (HCC) pre-cancerous br east Osteoporosis GERD (gastroesophageal reflux disease) ? Brain concussion 2009 Chronic bronchitis (HCC) Emphysema of lung (HCC) CHF (congestive heart failure) (HCC) Family History Medical History Relation Name [...] on file Legal Sex Female 4:14 AM ROTARY SHEAR OPERATOR Gender Identity Female 08/11/2017 1:49 PM CDT Sexual Orientation Not on file Obstetrics History Last Filed Vital Signs Vital Sign Reading Time Taken Comments Blood Pressure 127/65 03/10/2024 10:49 AM ROTARY SHEAR OPERATOR Pulse 94 03/10/2024 10:49 AM ROTARY SHEAR OPERATOR Temperature 36.7 C (98.1 F) 03/10/2024 10:49 AM ROTARY SHEAR OPERATOR Respiratory Rate 20 03/10/2024 10:49 AM ROTARY SHEAR OPERATOR Oxygen Saturation 97% 03/10/2024 10:49 AM ROTARY SHEAR OPERATOR Inhaled Oxygen Concentration - - Weight 60.8 kg (134 lb 1.6 oz) 03/10/2024 10:49 AM ROTARY SHEAR OPERATOR Height 165.1 cm (5' 5 ) 03/10/2024 10:49 AM ROTARY SHEAR OPERATOR Body Mass Index 22.32 03/10/2024 10:49 AM ROTARY SHEAR OPERATOR Plan of Treatment Health Maintenance Due Date [...] Completed 07/05/2023 Medical Devices Implanted Type Area Decorator Store Device Identifier Shelf Expiration Date Model / Serial / Lot [employer] Device Closure Vascade Od5 Fr Femoral Artery [id number] - [id number] Implanted:Qty: 1 on 03/31/2023 by Miguel Mccloud MD at [facility] [employer] 12/02/2024 [id number] / / [id number] Procedures Procedure Name Priority Date/Time Associated Diagnosis Comments HEPATITIS PANEL, ACUTE Routine 07/05/2023 9:55 AM CDT Acid phosphatase elevated Fatigue Hypopotassemia DEXA TBS AXIAL SKELETON BONE DENSITY 1 OR MORE SITES Schedule Routine, Read Routine (OP Routine) 01/11/2023 10:31 AM ROTARY SHEAR OPERATOR Age-related osteoporosis without current pathological fracture from [...] 19. Hep B core IgM Nonreactive Nonreactive [facility] Comment: Interpretive Data If HepB Core IgM Ab is reported as Equivocal, a new sample should be drawn in two weeks for testing. Current interpretive data was last revised on 19. Hep C Ab Nonreactive [facility]reactive [facility] Comment: Interpretive Data Nonreactive: Antibodies to HCV [...] last revised on 2019. HepBsAg Nonreactive Nonreactive [facility] Blood Venous blood specimen / Unknown 07/05/2023 9:55 AM CDT 07/05/2023 3:12 PM CDT Narrative [facility] - 07/05/2023 5:04 PM CDT Fax results to Dr Nu Shirley [phone] Nu Shirley MD LAB MICROBIOLOGY - [facility] Final Result [facility] [address] [facility] Department [place] [address] * Dexa TBS Axial Skeleton Bone Density 1 or more sites (01/11/2023 10:31 AM ROTARY SHEAR OPERATOR) Anatomical Region Laterality Modality Wrist, Body N/A Radiographic Batsheva ging Narrative 01/11/2023 4:22 PM ROTARY SHEAR OPERATOR Patient Name: Oralia Garsia Date of : 1950 Date of scan: 01/11/2023 Bone mineral density was performed on a HoloFarmeron Discovery Densitometer. Based on machine cross-calibration and [...] by the International Society of Clinical Densitometry. [id number] Salud John MD IM DXA PROCEDURES Final Re sult from Last 3 Months or Most Recently Relevant to Health Maintenance Insurance [employer] MEDICARE T MEDICARE T MEDICARE Care Teams Undertaker Helper Relationship Specialty Start Date End Date Nu Shirley MD PCP - General Family Medicine 01/14/21
--- OUTSIDE RECORDS SUMMARY | 2024-05-29 10:07 | XMS_ITS | Clinical Summary ---
Author Organization [facility] Address [address] [place] [address] Care Team Providers Care Gluing Machine Feeder Name Role Phone Unavailable Primary Care Provider [...]
--- OUTSIDE RECORDS SUMMARY | 2024-05-29 10:07 | XMS_ITS ---
Author Organization [facility] [address] Address [address] [place] [address] Care Team Providers Care Electric Meter Installer Name Role Phone Nu Shirley MD Primary Care Provider [phone] Active Problems Problem Noted Date Diagnosed Date COPD (chronic obstructive pulmonary disease) Atypical hyperplasia of left breast 11/28/2017 Lobular carcinoma in situ (LCIS) of left breast 11/28/2017 Abnormal ultrasound of breast 09/20/2017 Presence of stent in coronary artery 06/23/2017 Tobacco abuse 06/23/2017 Essential hypertension 06/23/2017 History of non-ST elevation myocardial infarctio n (NSTEMI) 06/23/2017 Coronary artery disease invo lving [place] coronary artery of [place] heart without angina pectoris 06/23/2017 Concussion with [...] consider Prolia. She should continue calcium of 8094-8033 mg per day through dietary intake or [...] this time. She should continue calcium of 9461-4306 mg per day through dietary intake or [...] has improved. She should continue calcium of 3677-4079 mg per day through dietary intake or supplements and vitamin D 2000 IU per day get IV Reclast again Assessment & Plan (11/23/2018 4:00 PM CDT): In summary, Ms. GARSIA has osteoporosis that is likely multifactorial secondary to tobacco use and family history of osteoporosis and advanced age. Her bone density has improved. She should continue calcium of 3000-9586 mg per day through dietary intake or supplements and vitamin D 2000 IU per day get IV Reclast again. Assessment & Plan (10/27/2017 12:06 PM CDT): In summary, Ms. GARSIA has osteoporosis that is likely multifactorial secondary to tobacco use and family history of osteoporosis and advanced age. She's being treated with calcium of 2701-0468 mg per day through dietary intake or supplements and vitamin D 2000 IU per day and Forteo (teriparatide) and she's tolerating it well. Her bone density has improved. Current Treatment and Therapy Plans No current plan information found. Other Current Plans Zoledronic Acid (Reclast) Infusion* Plan Start Date:01/11/2023 Plan Provider:Ximena Reilly MD Linked Problems Age-related osteoporosis wit hout current pathological fracture Treatment Medications No medications scheduled. Past Treatment and Therapy Plans Lifetime Dose Tracking * Chemical Lifetime Dose Automatic Entry Manual Entr y Air kerma at the reference point (Ka,r) 105 mGy 0 mGy 105 mGy
--- OUTSIDE RECORDS SUMMARY | 2024-05-29 10:07 | XMS_ITS | Clinical Summary ---
Author Organization [facility] Address [address] [place] [address] Care Team Providers Care Missile And Missile Checkout Technician Name Role Phone Nu Shirley MD Primary Care Provider [phone] Allergies Active Allergy Reactions Criticality Noted Date Comments Morphine Other (See Comments) ,Nausea and Vomiting Low 08/19/2014 sick sick Medications aspirin (ECOTRIN EC) 81 mg Tablet, Delayed Release (E.C.) Take 81 mg by mouth. Active Cholecalciferol , Vitamin D3, 10,000 unit Capsule Take 10,000 Units by mouth. Active omeprazole (PriLOSEC) 20 mg Tablet, Delayed Release (E.C.) Take by mouth. Activ e OTHER [place] Tail Mushroom 2 tablets daily . Active [...] 3 Active fluticasone propionate (FLONASE) 50 mcg/spray Banks, Suspension nasal inhaler Administer 2 Sprays in [...] Encounters Date Type Department Care Team Description 05/23/2024 External Device Data STL ABSTRACTION Provider, Abstract 05/12/2024 External Device Data STL ABSTRACTION Provider, Abstract 05/11/2024 External Device Data STL ABSTRACTION Provider, Abstract 05/08/2024 External Device Data STL ABSTRACTION Provider, Abstract 04/03/2024 External Device Data STL ABSTRACTION Provider, Abstract 03/28/2024 External Device Data STL ABSTRACTION Provider, Abstract 03/28/2024 External Device Data STL ABSTRACTION Provider, Abstract 03/21/2024 External Device Data STL ABSTRACTION Provider, Abstract from Last 3 Months Family History Medical History Relation Name Comments Cancer Brother prostate; at 67 Prostate Cancer Brother Cancer Mother Zulma Garsia Breast Cancer Sister Aubree Gonzalez Ovarian Cancer Neg Hx Relation Name Status Comments Brother Mother Zulma Garsia Sister Aubree Gonzalez Alive Social History Tobacco Use Types Packs/Day Years Used Date Smoking Tobacco: Some Days Cigarettes 0.2 41.1 Started: 06/16/1977; Last attempted to quit: 06/16/2017 [...] Description 06/29/2024 9:45 AM CDT Office Visit [facility] On[facility] H[facility]ology - [place] [address] [facility] [address] [address] [place] [address] Suhail Luis MD [address] [place] [address] Health Maintenance Due Date Last Done Comments DTAP/TDAP/TD VACCINES (1 - Tdap) 10/07/1971 PNEUMOCOCCAL VACCINE 50+ YEA RS (1 of 2 - PCV) [...] OR WO CAD Routine 02/13/2024 2:08 PM YARN WEIGHT AND STRENGTH TESTER from Last 3 Months or Most Recently Relevant to Health Maintenance Results * MAMMO DIAGNOSTIC UNI LEFT W OR WO CAD (02/13/2024 2:08 PM YARN WEIGHT AND STRENGTH TESTER) Anatomical Region Laterality Modality Breast Left Mammography Suhail Luis MD MAMMO ORDERABLES Final Result from Last 3 Months or Most Recently Relevant to Health Maintenance Insurance [facility] Care Teams Missile And Missile Checkout Technician Relationship Specialty Start Date End Date Nu Shirley MD [address] [place] [id number] PCP - General Family Practice 07/18/23
--- OUTSIDE RECORDS SUMMARY | 2024-05-29 10:07 | XMS_ITS | Clinical Summary ---
Author Organization [facility] Address [address] [place] [address] Care Team Providers Care Web Offset Press Feeder Name Role Phone Rafael Ruiz MD Primary Care Provider [phone] Source Comments [facility],non-owned Affiliates and Associated Physician Practices is amultiple site organization consisting of ambulatory clinics and hospital sitesin [place], [place], [place] and [place]. This disclosure is being madepursuant to the Care Everywhere program and may not contain all information available regarding this patient. Last updated 17.[facility] Allergies Active Allergy Reactions Criticality Noted Date [...] FLEX SIG - COLON CA SCREENING 1950 MAMMOGRAM 1950 MEDICARE AWV 12 MONTHS 1950 HEPATITIS C SCREENING 10/02/1970 DTAP/TDAP/TD VACCINES (1 - Tdap) 10/07/1971 PNEUMOCOCCAL VACCINE 50+ (1 of 2 - PCV) 10/07/1971 ZOSTER VACCINE (1 of 2) 2002 LIPID TESTING 08/04/2022 08/04/2017 COVID-19 VACCINE ( - 2023-2 5 season) [...] to complete this topic MENINGOCOCCAL (Group B) VACC INE SHARED DECISION-MAKING Aged Out No longer eligibl e based on patient's age to complete this topic MENINGOCOCCAL GROUPS A/C/Y/W VACCINE Aged Out No longer eligible b ased on patient's age to complete this topic Insurance Payer Benefit Plan / Group Subscriber ID Effective Dates Phone Address Type AETNA AETNA MEDICARE ADV PPO/HMO/PFFS [id number] Effective for all dates [address] [place] [address] Medicare-Mana ged Care MEDICARE MEDICARE PART A AND B [id number] Effective for all dates [address] [place] [address] Medicare [employer] [place] [facility] [place] [id number] [phone]-Pre sent [id number] [place] [address] [employer] [facility] OA [id number] Effective for all dates [address] [place] [address] HMO Care Teams Web Offset Press Feeder Relationship Specialty Start Date End Date Rafael Ruiz MD [address] [place] [address] PCP - General 08/19/14
--- OUTSIDE RECORDS SUMMARY | 2024-05-29 10:07 | XMS_ITS | Referral Summary ---
Author Organization [facility] [address] Address [address] [place] [address] Care Team Providers Care Building Maintenance Superintendent Name Role Phone Nu Shirley MD Primary Care Provider [phone] Encounters Date Type Department Care Team Description 03/10/2024 11:00 AM SEMICONDUCTOR DEVELOPMENT TECHNICIAN Office Visit [facility] at [address] [address] Lurdes Jarvis, SHERIF Great toe [...] TO SCALP TWICE DAILY 12/11/19 20 Active [place] Aerosphere 160-9-4.8 mcg/actuation HFA aerosol inhaler Inhale [...] (NSTEMI) 06/23/2017 Coronary artery disease invo lving kiowa tribe coronary artery of kiowa tribe heart without angina pectoris 06/23/2017 Concussion with [...] consider Prolia. She should continue calcium of 6781-4691 mg per day through dietary intake or [...] this time. She should continue calcium of 3547-1759 mg per day through dietary intake or [...] has improved. She should continue calcium of 1075-7467 mg per day through dietary intake or supplements and vitamin D 2000 IU per day get IV Reclast again Assessment & Plan (11/23/2018 4:00 PM CDT): In summary, Ms. GARSIA has osteoporosis that is likely multifactorial secondary to tobacco use and family history of osteoporosis and advanced age. Her bone density has improved. She should continue calcium of 2609-0655 mg per day through dietary intake or supplements and vitamin D 2000 IU per day get IV Reclast again. Assessment & Plan (10/27/2017 12:06 PM CDT): In summary, Ms. GARSIA has osteoporosis that is likely multifactorial secondary to tobacco use and family history of osteoporosis and advanced age. She's being treated with calcium of 0419-0095 mg per day through dietary intake or [...] on file Legal Sex Female 4:14 AM SEMICONDUCTOR DEVELOPMENT TECHNICIAN Gender Identity Female 08/11/2017 1:49 PM CDT Sexual Orientation Not on file Last Filed Vital Signs Vital Sign Reading Time Taken Comments Blood Pressure 127/65 03/10/2024 10:49 AM SEMICONDUCTOR DEVELOPMENT TECHNICIAN Pulse 94 03/10/2024 10:49 AM SEMICONDUCTOR DEVELOPMENT TECHNICIAN Temperature 36.7 C (98.1 F) 03/10/2024 10:49 AM SEMICONDUCTOR DEVELOPMENT TECHNICIAN Respiratory Rate 20 03/10/2024 10:49 AM SEMICONDUCTOR DEVELOPMENT TECHNICIAN Oxygen Saturation 97% 03/10/2024 10:49 AM SEMICONDUCTOR DEVELOPMENT TECHNICIAN Inhaled Oxygen Concentration - - Weight 60.8 kg (134 lb 1.6 oz) 03/10/2024 10:49 AM SEMICONDUCTOR DEVELOPMENT TECHNICIAN Height 165.1 cm (5' 5 ) 03/10/2024 10:49 AM SEMICONDUCTOR DEVELOPMENT TECHNICIAN Body Mass Index 22.32 03/10/2024 10:49 AM SEMICONDUCTOR DEVELOPMENT TECHNICIAN Plan of Treatment Not on file Medical Devices Implanted Type Area Laboratory Engineer Device Identifier Shelf Expiration Date Model / Serial / Lot Roundarch Device Closure Vascade Od5 Fr Femoral Artery [id number] - [id number] Implanted:Qty: 1 on 03/31/2023 by Miguel Mccloud MD at [facility] [employer] [facility] 12/02/2024 [id number] / / [id number] Procedures Procedure Name Priority Date/Time Associated Diagnosis Comments HEPATITIS PANEL, ACUTE Routine 07/05/2023 9:55 AM CDT Acid phosphatase elevated Fatigue Hypopotassemia DEXA TBS AXIAL SKELETON BONE DENSITY 1 OR MORE SITES Schedule Routine, Read Routine (OP Routine) 01/11/2023 10:31 AM SEMICONDUCTOR DEVELOPMENT TECHNICIAN Age-related osteoporosis without current pathological fracture from [...] 19. Hep B core IgM Nonreactive Nonreactive SCOTT Comment: Interpretive Data If HepB Core IgM Ab is reported as Equivocal, a new sample should be drawn in two weeks for testing. Current interpretive data was last revised on 19. Hep C Ab Nonreactive Nonreactive SCOTT Comment: Interpretive Data Nonreactive: Antibodies to HCV [...] last revised on 2019. HepBsAg Nonreactive Nonreactive [facility] Blood Venous blood specimen / Unknown 07/05/2023 9:55 AM CDT 07/05/2023 3:12 PM CDT Narrative JONONER - 07/05/2023 5:04 PM CDT Fax results to Dr Nu Shirley [phone] us Nu Shirley MD LAB MICROBIOLOGY - [facility] Final Result [facility] [id number] [place] [address] * Dexa TBS Axial Skeleton Bone Density 1 or more sites (01/11/2023 10:31 AM SEMICONDUCTOR DEVELOPMENT TECHNICIAN) Anatomical Region Laterality Modality Wrist, Body N/A Radiographic Batsheva ging Narrative 01/11/2023 4:22 PM SEMICONDUCTOR DEVELOPMENT TECHNICIAN Patient Name: Oralia Garsia Date of : [...] by the International Society of Clinical Densitometry. [id number] Salud John MD IM DXA PROCEDURES Final Re sult from Last 3 Months or Most Recently Relevant to Health Maintenance Insurance AETNA MEDICARE MEDICARE [facility] MEDICARE Care Teams Building Maintenance Superintendent Relationship Specialty Start Date End Date Nu Shirley MD PCP - General Family Medicine 01/14/21
--- OUTSIDE RECORDS SUMMARY | 2024-05-29 10:07 | XMS_ITS | Clinical Summary ---
Author Organization [facility] Address [address] [place] [address] Phone Care Team Providers Care Stunner And Shackler Name Role Phone Stacey Wyatt MD Primary [...] Take by mouth 2 times daily. Active [place]-3 Fatty Acids (OMEGA-3 FISH OIL PO) Take [...] Health Maintenance Due Date Last Done Comments Hepatitis C Virus (HCV) Screening 1950 Mammogram 1962 Colonoscopy 1997 Colorectal Cancer Screening 1997 Cologuard 2002 Immunochemical Fecal Occult Blood 2002 Zoster Immunization (1 of 2) 2002 Pneumococcal Immunization (5 0+ years) (2 of 2 - PCV) 07/05/2014 07/05/2013 Influenza Immunization (#1) 2023 SARS-COV-2 Immunization ( season) 2023 12/14/2020, 05/22/2020, 05/01/2020 Respiratory Syncytial [...] age to complete this topic Insurance [facility]IC[facility] Care Teams Stunner And Shackler Relationship Specialty Start Date End Date Stacey Wyatt MD [address] [place] [address] PCP - General Family Medicine 11/24/17
== END 2024-05-29 09:07 | disposition home or self-care (01) ==
PROVIDERS: PCP Family Medicine; Visit Provider Nurse Practitioner Family
DX: R91.1 Solitary pulmonary nodule (principal)
CPT/HCPCS: 78815; A9552

== ENCOUNTER 2024-06-22 13:43 | Inpatient (IN) | payer MEDICARE, SELFPAY ==
[2024-06-11 16:22] VITALS: BMI 22.7
--- NOTE | 2024-06-11 16:23 | PC.NURSE ---
Pre Radiology instructions Report to the outpatient sherita montesinos on date _06/22/24____ at time ____9:00AM___ for procedure Time: __11:00AM__ YOU MAY BE MONITORED AT HOSPITAL FOR UP TO 4 HOURS AFTER YOUR PROCEDURE. A visitor will be allowed to accompany the patient into the hospital. You and your visitor will be asked to self-screen and do not enter if you have any COVID symptoms. A mask is OPTIONAL within the hospital. Patients are to have no food or drink 6 hours prior to procedure time Driving will be restricted after the procedure, you must have a person to drive you home. Labs will be drawn in preop area and once reviewed, you will be taken to radiology area for procedure. When the procedure is completed, you will be taken to outpatient where you will be monitored for several hours. You may have one visitor in this area. Other than holding anti-coagulants, patient may take other medication(s) as scheduled. Prior to your appointment date patients are instructed to hold anti-coagulants after discussing with ordering provider to stop. If unable to discontinue anti-coagulants please notify radiologist. ? No aspirin or warfarin (Coumadin) for 7 days prior to the procedure. ? No clopidogrel (Plavix), ticagrelor (Brilinta), prasugrel (Effient) or dabigatran (Pradaxa) for 5 days prior to the procedure. ? No rivaroxaban (Xarelto), apixaban (Eliquis), dipyridamole (Aggrenox or Persantine) or cilostazol (Pletal) for 2 days prior to the procedure. Medications to discontinue per physician: ___HOLD ASPIRIN 7 DAYS PRE-PROCEDURE Date to take last dose: ____06/14/24 Please leave all valuables, including medications, at home the day of procedure. The hospital will not accept responsibility for valuables. Wear comfortable, loose fitting clothing.? Follow any additional instructions given to you from ordering provider. Telephone instructions given to ___PATIENT and asked if any additional questions and then verbalized understanding. Patient advised to call scheduling provider office or registration scheduling [phone] if any additional questions.
[2024-06-22] VITALS (15 sets, daily range): BP systolic 88–155; BP diastolic 56–93; PULSE 91–143; RESP 16–30; TEMP 36.5–37.4; O2SAT 98–100; BMI 19.7
--- NOTE | ~2024-06-22 | XR_ITS ---
EXAMINATION: XR chest 1V portable DATE: 06/23/2024 05:46 INDICATION: Pneumothorax and chest tube placement TECHNIQUE: frontal view of the chest was obtained. COMPARISON: Chest radiograph dated 06/22/[address] dated 04/16/2024 FINDINGS: Hyperexpansion lungs consistent with mild emphysema better appreciated on prior CT. Left chest tube d rains in place projecting along the lateral left midlung zone. Tiny left apical pneumothorax. Reticul ar opacities at the right lower lung zone which are improving on earlier chest CT studies consistent with resolving pneumonia. Large calcified right lower lobe nodule consistent with old granulomatous d isease. The cardiomediastinal silhouette is normal. Subcutaneous emphysema at the lateral left chest wall IMPRESSION: 1. Tiny left apical pneumothorax with unchanged left chest tube in place. 2. Mild emphysema with unchanged reticular opacities at the right lower lung zone which could been im proving on recent chest CT studies consistent with resolving pneumonia. Reviewed, dictated and finalized at location A. IMPRESSION: 1. Tiny left apical pneumothorax with unchanged left chest tube in place. 2. Mild emphysema with unchanged reticular opacities at the right lower lung zo ne which could been improving on recent chest CT studies consistent with resolv ing pneumonia.
--- NOTE | ~2024-06-22 | XR_ITS ---
EXAMINATION: XR chest 2V DATE: 06/25/2024 09:06 INDICATION: Pneumothorax TECHNIQUE: AP and lateral views of the chest were obtained. COMPARISON: Chest radiograph dated 06/24/2024 FINDINGS: Slight increase in size of a small left apical pneumothorax. Left chest tube remains in place project ing over the lateral left midlung with increase in amount of subcutaneous emphysema along the lateral left chest wall. Unchanged small region of reticular opacities in the posterior right lower lung zon e consistent with resolving pneumonia. Calcified nodule at the posterior medial right lung base consi stent with old granulomatous disease. No pleural effusion or right-sided pneumothorax. The cardiomedi astinal silhouette is normal. IMPRESSION: 1. Unchanged left chest tube positioned at the lateral right midlung zone with slight increase in siz e of a still small left apical pneumothorax and increase in amount of soft tissue gas at the lateral left chest wall. 2. Reticular opacities at the posterior right lower lung zone consistent with likely resolving pneumo dianne with improvement since CT dated 04/16/2024. Reviewed, dictated and finalized at location A. IMPRESSION: 1. Unchanged left chest tube positioned at the lateral right midlung zone with slight increase in size of a still small left apical pneumothorax and increase in amount of soft tissue gas at the lateral left chest wall. 2. Reticular opacities at the posterior right lower lung zone consistent with l ikely resolving pneumonia with improvement since CT dated 04/16/2024.
--- NOTE | ~2024-06-22 | XR_ITS ---
XR chest 1V portable 06/24/2024 07:47 Indication: Left pneumothorax Procedure: AP portable chest Comparison: Comparison to multiple prior studies sequentially, with oldest reviewed study dated 07/02. Findings: Stable small left apical pneumothorax. Right basilar airspace disease, consistent with pneu monia. The lungs are hyperinflated which is consistent with, but not diagnostic of chronic obstructiv e pulmonary disease. There is a pigtail catheter in the left upper chest. There is subcutaneous gas i n the left axillary region. There is atherosclerosis of the axillary vessels. Impression: 1: Stable small left apical pneumothorax. 2: Right basilar airspace disease, compatible with pneumonia. Reviewed, dictated and finalized at location A. Impression: 1: Stable small left apical pneumothorax. 2: Right basilar airspace disease, compatible with pneumonia.
--- NOTE | ~2024-06-22 | XR_ITS ---
EXAMINATION: XR chest-chest tube insert/pos DATE: 06/22/2024 13:40 INDICATION: Status post left chest tube placement.] No pneumothorax post produce lung biopsy. TECHNIQUE: frontal view of the chest was obtained. COMPARISON: Chest radiograph dated 06/22/2024 FINDINGS: Left chest tube projects over the lateral margin of the left midlung zone. No evident residual pneumo thorax. Adjacent to the loop of the chest tube is a small nodular opacity corresponding to the intend ed target for the lung biopsy which is concerning for primary bronchogenic carcinoma. Large calcified pulmonary nodule at the right cardiophrenic angle consistent with old granulomatous disease. Persist ent reticular opacities in the right lower lung zone which has been decreasing on prior chest CT stud ies consistent with improving pneumonia. No pleural effusion. Heart size is normal. Small amount of soft tissue gas at the lateral left chest wall at the site of chest tube insertion. IMPRESSION: 1. Resolution of prior echogenic left pneumothorax post left chest tube placement. 2. Chronic reticular opacities in the right lower lung zone which is demonstrated improvement on prio r chest CT studies consistent with improving pneumonia. Reviewed, dictated and finalized at location A. IMPRESSION: 1. Resolution of prior echogenic left pneumothorax post left chest tube placeme nt. 2. Chronic reticular opacities in the right lower lung zone which is demonstrat ed improvement on prior chest CT studies consistent with improving pneumonia.
--- NOTE | ~2024-06-22 | CT_ITS ---
EXAMINATION: CT biopsy lung w/imaging, CT chest tube placement w img DATE: 06/22/2024 13:15 INDICATION: FDG avid left lung nodule TECHNIQUE: The procedure including the risks and benefits was discussed with the patient. Risks discu ssed included infection, approximately 1/20 risk of symptomatic hemorrhage beyond mild hemoptysis, ap proximately 1/3 risk of pneumothorax, and approximately 1/10 risk of pneumothorax severe enough to wa rrant chest tube placement. The patient understood the risks and agreed to proceed. The patient was p laced supine. The skin overlying the left anterior chest was prepped and draped in sterile fashion. Anesthetic was administered with 1% lidocaine subcutaneously. A 19 gauge outer needle was advanced under CT guidance to near the lesion of interest. During the biopsy a pneumothorax developed. Air was aspirated from the pneumothorax but continued to reaccumulate precluding further attempts at biopsy which was terminated without obtaining a specimen. Given the continuing relatively rapid progression of the pneumothorax was elected to transition to ch est tube placement. The patient's oxygen saturation is began to decrease from 100% on room air to 94% . The patient was placed on 4 L oxygen nasal cannula with return to 100% oxygen saturation. A J-wire was advanced through the needle into the pneumothorax. Utilizing Seldinger technique the needle was r emoved over the wire and the tract serially dilated to 8 [place]. An 8.5 [place] catheter was then adva nced over the wire with position confirmed by CT. The loop was formed and locked and the catheter sti tched to the skin. Sterile Vaseline impregnated gauze was placed around the catheter access site and a sterile dressing applied. An additional adhesive fixation device was applied. The pneumothorax was manually aspirated and the patient was transferred to the postoperative recovery area pending admissi on. Chest radiograph obtained post chest tube placement demonstrated resolution of the left pneumotho rax. The dose-length product was 60.14 mGy-cm for the biopsy portion of the examination and 113.22 m Gy-cm for the chest tube placement. FINDINGS: CT images demonstrate the outer needle tip adjacent to the 1.1 cm left upper lobe nodule of concern with a tiny pneumothorax. Subsequent images demonstrate gradual increase in size of a pneumo thorax resulting in dislodgment of the needle from the lung. Final images demonstrate placement of a left chest tube into the pneumothorax. IMPRESSION: 1. Unsuccessful attempt at CT-guided biopsy of an 11 mm left upper lobe pulmonary nodule complicated by development of a symptomatic left pneumothorax. 2. Successful CT-guided chest tube placement with resolution of the left pneumothorax. Reviewed, dictated and finalized at location A. IMPRESSION: 1. Unsuccessful attempt at CT-guided biopsy of an 11 mm left upper lobe pulmona ry nodule complicated by development of a symptomatic left pneumothorax. 2. Successful CT-guided chest tube placement with resolution of the left pneumo thorax.
--- OUTSIDE RECORDS SUMMARY | 2024-06-22 09:06 | XMS_ITS | Clinical Summary ---
Author Organization [facility] [address] Address [address] [place] [address] Care Team Providers Care Artist Color Separation Name Role Phone Nu Shirley MD Primary Care Provider [phone] Allergies Active Allergy Reactions Criticality Noted Date [...] mg total) by mouth daily Active zoledronic dywv-lcbwmhga-h ater (RECLAST) 5 mg/100 mL piggyback Active [...] Space Chamber spacer as directed 3 Active ipratropium (ATROVENT) 21 mcg (0.03 %) nasal spray USE 2 SPRAY(S) IN EACH NOSTRIL THREE TIMES DAILY 4 Active spironolactone (ALDACTONE) 25 mg tablet Take 1 tablet (25 mg total) by mouth daily 30 tablet 11 4 Active atorvastatin (LIPITOR) 80 mg tablet Take [...] ONCE DAILY FOR 4 WEEKS 4 Active sacubitriL-vals scottie (Entresto) 49-51 mg tablet Take 1 tablet by mouth twice daily 180 tablet 5 Active Active Problems Problem Noted Date Diagnosed Date COPD (chronic obstructive pulmonary disease) Atypical hyperplasia of left breast 11/28/2017 Lobular carcinoma in situ (LCIS) of left breast 11/28/2017 Abnormal ultrasound of breast 09/20/2017 Presence of stent in coronary artery 06/23/2017 Tobacco abuse 06/23/2017 Essential hypertension 06/23/2017 History of non-ST elevation myocardial infarctio n (NSTEMI) 06/23/2017 Coronary artery disease invo lving [place] coronary artery of [place] heart without angina pectoris 06/23/2017 Concussion with [...] consider Prolia. She should continue calcium of 1985-8901 mg per day through dietary intake or [...] this time. She should continue calcium of 6876-1172 mg per day through dietary intake or [...] has improved. She should continue calcium of 8807-5093 mg per day through dietary intake or supplements and vitamin D 2000 IU per day get IV Reclast again Assessment & Plan (11/23/2018 4:00 PM CDT): In summary, Ms. GARSIA has osteoporosis that is likely multifactorial secondary to tobacco use and family history of osteoporosis and advanced age. Her bone density has improved. She should continue calcium of 6308-5914 mg per day through dietary intake or supplements and vitamin D 2000 IU per day get IV Reclast again. Assessment & Plan (10/27/2017 12:06 PM CDT): In summary, Ms. GARSIA has osteoporosis that is likely multifactorial secondary to tobacco use and family history of osteoporosis and advanced age. She's being treated with calcium of 5413-1604 mg per day through dietary intake or supplements and vitamin D 2000 IU per day and Forteo (teriparatide) and she's tolerating it well. Her bone density has improved. Surgical History Surgery Date Site/Laterality Comments HYSTERECTOMY [...] on file Legal Sex Female 4:14 AM TWISTER DOFFER Gender Identity Female 08/11/2017 1:49 PM CDT Sexual Orientation Not on file Obstetrics History Last Filed Vital Signs Vital Sign Reading Time Taken Comments Blood Pressure 127/65 03/10/2024 10:49 AM TWISTER DOFFER Pulse 94 03/10/2024 10:49 AM TWISTER DOFFER Temperature 36.7 C (98.1 F) 03/10/2024 10:49 AM TWISTER DOFFER Respiratory Rate 20 03/10/2024 10:49 AM TWISTER DOFFER Oxygen Saturation 97% 03/10/2024 10:49 AM TWISTER DOFFER Inhaled Oxygen Concentration - - Weight 60.8 kg (134 lb 1.6 oz) 03/10/2024 10:49 AM TWISTER DOFFER Height 165.1 cm (5' 5 ) 03/10/2024 10:49 AM TWISTER DOFFER Body Mass Index 22.32 03/10/2024 10:49 AM TWISTER DOFFER Plan of Treatment Health Maintenance Due Date [...] Completed 07/05/2023 Medical Devices Implanted Type Area [facility] Device Identifier Shelf Expiration Date Model / Serial / Lot [employer] Device Closure Vascade Od5 Fr Femoral Artery [id number] - [id number] Implanted:Qty: 1 on 03/31/2023 by Miguel Mccloud MD at [facility] [employer] [facility] 12/02/2024 [id number] / / [id number] Procedures Procedure Name Priority Date/Time Associated Diagnosis Comments HEPATITIS PANEL, ACUTE Routine 07/05/2023 9:55 AM CDT Acid phosphatase elevated Fatigue Hypopotassemia DEXA TBS AXIAL SKELETON BONE DENSITY 1 OR MORE SITES Schedule Routine, Read Routine (OP Routine) 01/11/2023 10:31 AM TWISTER DOFFER Age-related osteoporosis without current pathological fracture from [...] 19. Hep B core IgM Nonreactive Nonreactive [facility] Comment: Interpretive Data If HepB Core IgM Ab is reported as Equivocal, a new sample should be drawn in two weeks for testing. Current interpretive data was last revised on 19. Hep C Ab Nonreactive Nonreactive [facility] Comment: Interpretive Data Nonreactive: Antibodies to [...] last revised on 2019. HepBsAg Nonreactive Nonreactive [facility] Blood Venous blood specimen / Unknown 07/05/2023 9:55 AM CDT 07/05/2023 3:12 PM CDT Narrative [facility] - 07/05/2023 5:04 PM CDT Fax results to Dr Nu Shirley [phone] us Nu Shirley MD LAB MICROBIOLOGY - [facility] Final Result [facility] [address] Department [place] [address] * Dexa TBS Axial Skeleton Bone Density 1 or more sites (01/11/2023 10:31 AM TWISTER DOFFER) Anatomical Region Laterality Modality Wrist, Body N/A Radiographic Batsheva ging Narrative 01/11/2023 4:22 PM TWISTER DOFFER Patient Name: Oralia Garsia Date of : 1950 Date of scan: 01/11/2023 Bone mineral density was performed on a [employer] Discovery Densitometer. Based on machine cross-calibration and [...] by the International Society of Clinical Densitometry. [id number] Salud John MD IMG DXA PROCEDURES Final Re sult from Last 3 Months or Most Recently Relevant to Health Maintenance Insurance [facility] MEDICARE [facility] MEDICARE Address: [address] [address] FORMERLY [facility] MEDICARE AETNA MEDICARE [facility], [facility] MEDICARE Address: [address] [place] [address] Care Teams Artist Color Separation Relationship Specialty Start Date End Date Nu Shirley MD PCP - General Family Medicine 01/14/21
--- OUTSIDE RECORDS SUMMARY | 2024-06-22 09:06 | XMS_ITS | Clinical Summary ---
Author Organization [facility] Address [address] [place] [address] Phone Care Team Providers Care Electric Meter Technician Name Role Phone Stacey Wyatt MD Primary [...] Take by mouth 2 times daily. Active Buckner-3 Fatty Acids (OMEGA-3 FISH OIL PO) Take [...] age to complete this topic Insurance [facility]IC[facility] Care Teams Electric Meter Technician Relationship Specialty Start Date End Date Stacey Wyatt MD [address] [place] [address] PCP - General Family Medicine 11/24/17
--- OUTSIDE RECORDS SUMMARY | 2024-06-22 09:06 | XMS_ITS ---
Author Organization [facility] [address] Address [address] [place] [address] Care Team Providers Care Customer Success Associate Name Role Phone Nu Shirley MD Primary Care Provider [phone] Active Problems Problem Noted Date Diagnosed Date COPD (chronic obstructive pulmonary disease) Atypical hyperplasia of left breast 11/28/2017 Lobular carcinoma in situ (LCIS) of left breast 11/28/2017 Abnormal ultrasound of breast 09/20/2017 Presence of stent in coronary artery 06/23/2017 Tobacco abuse 06/23/2017 Essential hypertension 06/23/2017 History of non-ST elevation myocardial infarctio n (NSTEMI) 06/23/2017 Coronary artery disease invo lving [place] coronary artery of [place] heart without angina pectoris 06/23/2017 Concussion with [...] consider Prolia. She should continue calcium of 4508-0867 mg per day through dietary intake or [...] this time. She should continue calcium of 8233-6843 mg per day through dietary intake or [...] has improved. She should continue calcium of 0312-8200 mg per day through dietary intake or supplements and vitamin D 2000 IU per day get IV Reclast again Assessment & Plan (11/23/2018 4:00 PM CDT): In summary, Ms. GARSIA has osteoporosis that is likely multifactorial secondary to tobacco use and family history of osteoporosis and advanced age. Her bone density has improved. She should continue calcium of 3699-6225 mg per day through dietary intake or supplements and vitamin D 2000 IU per day get IV Reclast again. Assessment & Plan (10/27/2017 12:06 PM CDT): In summary, Ms. GARSIA has osteoporosis that is likely multifactorial secondary to tobacco use and family history of osteoporosis and advanced age. She's being treated with calcium of 1733-8141 mg per day through dietary intake or [...]
--- OUTSIDE RECORDS SUMMARY | 2024-06-22 09:06 | XMS_ITS | Clinical Summary ---
Author Organization [facility] Address [address] [place] [address] Care Team Providers Care Embroidery Specialist Name Role Phone Nu Shirley MD Primary Care Provider [phone] Allergies Active Allergy Reactions Criticality Noted Date Comments Morphine Other (See Comments) ,Nausea and Vomiting Low 08/19/2014 sick sick Medications aspirin (ECOTRIN EC) 81 mg Tablet, Delayed Release (E.C.) Take 81 mg by mouth. Active Cholecalciferol , Vitamin D3, 10,000 unit Capsule Take 10,000 Units by mouth. Active omeprazole (PriLOSEC) 20 mg Tablet, Delayed Release (E.C.) Take by mouth. Activ e OTHER [place] Tail Mushroom 2 tablets daily . Active [...] 3 Active fluticasone propionate (FLONASE) 50 mcg/spray [facility], Suspension nasal inhaler Administer 2 Sprays in each nostril daily. 2 Active inhalational spacing device (Space Chamber) Spacer as directed 3 Active sacubitriL-vals scottie (ENTRESTO) 49-51 mg Tablet Take 1 Tablet by mouth 2 times daily. 3 Active CYANOCOBALAMIN, VITAMIN B-12, ORAL Take by mouth. Activ e spironolactone (ALDACTONE) 25 mg tablet Take 25 mg by mouth daily. 4 06/01/19 25 Active Problems Patient Care Coordination No te [...] Date Smoking Tobacco: Some Days Cigarettes 0.2 41.2 Started: 06/16/1977; Last attempted to quit: 06/16/2017 [...] Care Team (Late st Contact Info) Description 08/14/2024 1:00 PM CDT Office Visit [facility] Oncology and Hematology - [place] [address] [facility] [address] [place] [address] Suhail Luis MD [address] [facility] [address] [place] [address] Health Maintenance Due Date Last [...] 1-dose series) 2012 INFLUENZA VACCINE (#1) 2023 Medicare Advantage ([place]) Preventative Visit/Annual Wellness Visit 03/07/2024 BREAST CANCER SCREENING 02/12/2025 02/13/20 24, 08/05/2023, 01/11/2023, Additional history exists OSTEOPOROSIS SCREENING Completed 3, 12/31/2021, 12/31/2021, Additional history exists Procedures Procedure Name Priority Date/Time Associated Diagnosis Comments MAMMO DIAGNOSTIC UNI LEFT W OR WO CAD Routine 02/13/2024 2:08 PM CHECKER [employer] from Last 3 Months or Most Recently Relevant to Health Maintenance Results * MAMMO DIAGNOSTIC UNI LEFT W OR WO CAD (02/13/2024 2:08 PM CHECKER [employer]) Anatomical Region Laterality Modality Breast Left Mammography Suhail Luis MD MAMMO ORDERABLES Final Result from Last 3 Months or Most Recently Relevant to Health Maintenance Insurance [facility] Care Teams Embroidery Specialist Relationship Specialty Start Date End Date Nu Shirley MD [address] [place] [address] PCP - General Family Practice 07/18/23
--- OUTSIDE RECORDS SUMMARY | 2024-06-22 09:07 | XMS_ITS | Clinical Summary ---
Author Organization [facility] Address [address] [place] [address] Care Team Providers Care Tooth Clerk Name Role Phone Unavailable Primary Care Provider [...] 1 - Tdap) 10/07/1971 Mammogram Screening 1992 Pneumococcal Vaccine: 50+ Ye ars (1 of 1 - PCV) 2002 Zoster Vaccines (1 of 2) 2002 Dexa Scan (General) 2017 COVID-19 Vaccine ( - 2023-2 5 season) 2023 RSV Immunization or 60+ Years (1 [...]
--- OUTSIDE RECORDS SUMMARY | 2024-06-22 09:07 | XMS_ITS | Clinical Summary ---
Author Organization [facility] Address [address] [place] [address] Care Team Providers Care Mitten Stitcher Name Role Phone Rafael Ruiz MD Primary Care Provider [phone] Source Comments [facility],non-owned Affiliates and Associated Physician Practices is amultiple site organization consisting of ambulatory clinics and hospital sitesin [place], [place], [place] and [place]. This disclosure is being madepursuant to the Care Everywhere program and may not contain all information available regarding this patient. Last updated 17.[facility] Allergies Active Allergy Reactions Criticality Noted Date Comments Morphine Nausea and/or Vomiting Low 08/19/2014 Medications * Be aware that medications may not be up to date on this document. Alwaysverify current medications with the patient. 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
--- OUTSIDE RECORDS SUMMARY | 2024-06-22 09:07 | XMS_ITS | Encounter Summary ---
Author Organization [facility] Address [address] [facility] [place] [address] Care Team Providers Care Manager Stone Name Role Phone Rafael Ruiz MD Primary Care Provider [phone] Encounter Details Date Type Department Care Team (Late st Contact Info) Description 12/12/2019 Lab Requisition [facility] [address] [facility] [place] [address] Mireya Shahid MD [address] [facility] [address] [place] [address] Social History Tobacco Use Types Packs/Day Years Used Date Smoking Tobacco: Every Day Cigarettes Smokeless Tobacco: Never Alcohol Use Standard Drinks/Week Comments Yes 0.8 (1 standard drink = 0.6 oz p ure alcohol) Comments Unknown Sex and Gender Information Value Date Recorded Sex Assigned at Not on file Legal Sex Female 5:56 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 Gender Identity Not on file Sexual Orientation Not on file documented as of this encounter Plan of Treatment Not on file documented as of this encounter Procedures Procedure Name Priority Date/Time Associated Diagnosis Comments DERMATOPATHOLOGY Routine 12/11/2019 12:0 0 AM CDT documented in this encounter Results * DERMATOPATHOLOGY (12/11/2019 12:00 AM CDT) Case Report Dermatopathology Report Case: [id number] Authorizing Provider: Mireya Shahid MD Collected: 12/11/2019 12:00 AM Ordering Location: [facility] Received: 12/12/2019 05:52 AM Pathologist: [...] characteristic determined by the Dermatopathology Laboratory at [facility], directed by Dr. Sabina [place]. These tests need not be, and therefore are not, approved by the [place] Food and Drug Administration. The tests are used for clinical purposes. Billing Codes Specimen Charges Stain Charges 46876 1 85290 1 0 5:41 PM CDT DERMATOPATHOLOGY LABORATORY Embedded Images 0 5:41 PM CDT DERMATOPATHOLOGY LABORATORY Pathology/Cytolog y TISSUE SPECIMEN FROM SKIN / Unknown 12/11/2019 12/12/2019 5:52 AM CDT Mireya Shahid MD LAB - PATHOLOGY/CYTOLOGY ORD ERABLES Final Result DERMATOPATHOLOGY LABORATORY [facility] - Department of Dermatology [facility] Medicine [address] [place] [address], [address] [phone] documented in this encounter Visit Diagnoses Not on filedocumented in this encounter Care Teams Manager Stone Relationship Specialty Start Date End Date Rafael Ruiz MD [place] [address] PCP - General 08/19/14 documented as of this encounter
--- OUTSIDE RECORDS SUMMARY | 2024-06-22 09:07 | XMS_ITS | Referral Summary ---
Author Organization [facility] [address] Address [address] [place] [address] Care Team Providers Care Senior Qa Analyst Name Role Phone Nu Shirley MD Primary Care Provider [phone] Allergies Active Allergy Reactions Criticality Noted Date [...] mg total) by mouth daily Active zoledronic xmdx-cikzxsvr-u ater (RECLAST) 5 mg/100 mL piggyback Active [...] (NSTEMI) 06/23/2017 Coronary artery disease invo lving [place] coronary artery of [place] heart without angina pectoris 06/23/2017 Concussion with [...] consider Prolia. She should continue calcium of 4972-8690 mg per day through dietary intake or [...] this time. She should continue calcium of 8240-8353 mg per day through dietary intake or [...] has improved. She should continue calcium of 7914-8510 mg per day through dietary intake or supplements and vitamin D 2000 IU per day get IV Reclast again Assessment & Plan (11/23/2018 4:00 PM CDT): In summary, Ms. GARSIA has osteoporosis that is likely multifactorial secondary to tobacco use and family history of osteoporosis and advanced age. Her bone density has improved. She should continue calcium of 2294-8553 mg per day through dietary intake or supplements and vitamin D 2000 IU per day get IV Reclast again. Assessment & Plan (10/27/2017 12:06 PM CDT): In summary, Ms. GARSIA has osteoporosis that is likely multifactorial secondary to tobacco use and family history of osteoporosis and advanced age. She's being treated with calcium of 7240-7447 mg per day through dietary intake or [...] on file Legal Sex Female 4:14 AM COMPOUNDER FLAVORINGS Gender Identity Female 08/11/2017 1:49 PM CDT Sexual Orientation Not on file Last Filed Vital Signs Vital Sign Reading Time Taken Comments Blood Pressure 127/65 03/10/2024 10:49 AM COMPOUNDER FLAVORINGS Pulse 94 03/10/2024 10:49 AM COMPOUNDER FLAVORINGS Temperature 36.7 C (98.1 F) 03/10/2024 10:49 AM COMPOUNDER FLAVORINGS Respiratory Rate 20 03/10/2024 10:49 AM COMPOUNDER FLAVORINGS Oxygen Saturation 97% 03/10/2024 10:49 AM COMPOUNDER FLAVORINGS Inhaled Oxygen Concentration - - Weight 60.8 kg (134 lb 1.6 oz) 03/10/2024 10:49 AM COMPOUNDER FLAVORINGS Height 165.1 cm (5' 5 ) 03/10/2024 10:49 AM COMPOUNDER FLAVORINGS Body Mass Index 22.32 03/10/2024 10:49 AM COMPOUNDER FLAVORINGS Plan of Treatment Not on file Medical Devices Implanted Type Area Outside Plant Engineer Device Identifier Shelf Expiration Date Model / Serial / Lot [employer] Device Closure Vascade Od5 Fr Femoral Artery [id number] - [id number] Implanted:Qty: 1 on 03/31/2023 by Miguel Mccloud MD at [facility] [employer] 12/02/2024 700-500DX-0 [id number] / / [id number] Procedures Procedure Name Priority Date/Time Associated Diagnosis Comments HEPATITIS PANEL, ACUTE Routine 07/05/2023 9:55 AM CDT Acid phosphatase elevated Fatigue Hypopotassemia DEXA TBS AXIAL SKELETON BONE DENSITY 1 OR MORE SITES Schedule Routine, Read Routine (OP Routine) 01/11/2023 10:31 AM COMPOUNDER FLAVORINGS Age-related osteoporosis without current pathological fracture from [...] on 19. Hep C Ab Nonreactive [facility]reactive [facility] Comment: Interpretive Data Nonreactive: Antibodies to HCV [...] last revised on 2019. HepBsAg Nonreactive Nonreactive [facility] Blood Venous blood specimen / Unknown 07/05/2023 9:55 AM CDT 07/05/2023 3:12 PM CDT Narrative [facility] - 07/05/2023 5:04 PM CDT Fax results to Dr Nu Shirley [phone] us Nu Shirley MD LAB MICROBIOLOGY - [facility] GWEN UMANZOR Final Result [facility] [address] Department [place] [address] * Dexa TBS Axial Skeleton Bone Density 1 or more sites (01/11/2023 10:31 AM COMPOUNDER FLAVORINGS) Anatomical Region Laterality Modality Wrist, Body N/A Radiographic Batsheva ging Narrative 01/11/2023 4:22 PM COMPOUNDER FLAVORINGS Patient Name: Oralia Garsia Date of : 1950 Date of scan: 01/11/2023 Bone mineral density was performed on a [employer] Discovery Densitometer. Based on machine cross-calibration [...] by the International Society of Clinical Densitometry. [id number] Salud John MD IM DXA PROCEDURES Final Re sult from Last 3 Months or Most Recently Relevant to Health Maintenance Insurance AETNA MEDICARE [facility] MEDICARE Address: [facility] [address] [place] [address] AET[employer] MEDICARE T MEDICARE Care Teams Senior Qa Analyst Relationship Specialty Start Date End Date Nu Shirley MD PCP - General Family Medicine 01/14/21
[2024-06-22 09:53] LABS: Mean Platelet Volume 9.5 fl (7.4-10.4); Platelet Count Result 310 k/mm3 (150-375)
[2024-06-22 10:04] LABS: INR 0.9; Prothrombin Time 12.7 Seconds (11.1-14.7)
--- NOTE | 2024-06-22 13:14 | P.CONIM_ITS ---
HPI Date of Consult Consult date: 06/22/24 Requesting Physician: Jeremy Reyez MD Primary Care Provider: Nu Shirley MD Consult Narrative Narrative: Oralia Garsia is a 73 year old female [facility] Past Medical History Medical History (Reviewed 06/19/24 @ 08:41 by Layla Mckenzie [facility]) Nodule of right lung Elevated liver enzymes Ischemic cardiomyopathy ECHO 05/24 40% EF COPD (chronic obstructive pulmonary disease) Hyperlipidemia Primary hypertension Benign hypertension Chronic obstructive pulmonary disease 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 Osteoporosis without current pathological fracture Other emphysema Surgical History Surgical History H/O breast surgery History of heart artery stent Family History Family History Sibling Hypertension Family history of malignant neoplasm of breast in first degree relative Family history of dementia Father Family history of cardiovascular disease Cerebrovascular accident Mother Family history of cardiovascular disease Family history of malignant neoplasm of urinary bladder Social History Social History (Reviewed 06/19/24 @ 08:41 by Layla Mckenzie [facility]) Smoking packs per day: 0.25 Smoking cigarettes per day: 5.0 Years smoked: 45 Smoking pack-years: 11.25 Smoking status: Current every day smoker (1-2 cigarettes daily) Tobacco type: cigarettes (1-2 a day ) Second hand tobacco smoke exposure: No Alcohol intake: current Drinks per week: 2 Substance use: never Substance use type: does not use Lack of Transportation: No Lack of Food: Never True Current Housing: I Have Housing Concerned About Future Housing: No Difficulty Paying Gas/Electric Bills: No Difficulty Paying for Meds: No Currently Unemployed: No Education: High School Diploma/GED Difficulty w/ Childcare or Family Care: No Living arrangements: alone Gender identity (if verbalized by the patient): Female Spiritual care concerns: No Meds Home Medications and Allergies Home Medications ?Medication ?Instructions ?Recorded ?Confirmed ?Type aspirin 81 mg tablet,delayed 81 mg PO DAILY 02/19/19 06/19/24 History release atorvastatin 80 mg tablet 80 mg PO DAILY 03/20/20 06/19/24 History clobetasol 0.05 % topical cream 1 applic topical DAILY PRN 03/20/20 06/19/24 History PSORIASIS loratadine 10 mg capsule 10 mg PO DAILY PRN allergy symptoms 03/20/20 06/19/24 History tacrolimus 0.1 % topical ointment 1 applic topical BID PRN PSORIASIS 03/20/20 06/19/24 History triamcinolone acetonide 0.1 % 1 applic topical BID PRN PSORIASIS 03/20/20 06/19/24 History topical cream ezetimibe 10 mg tablet (Zetia) 10 mg PO DAILY #30 tabs 12/17/20 06/19/24 Rx Zoledronic acid See Rx Instructions .Route 02/03/23 06/19/24 Rx .COMPLEX #100 mL empagliflozin 10 mg tablet 10 mg PO DAILY 02/09/23 06/19/24 History (Jardiance) sacubitril 24 mg-valsartan 26 mg 1 tablet PO BID 02/09/23 06/19/24 History tablet (Entresto) inhalational spacing device (Space #1 ea 04/26/23 06/19/24 Rx Chamber) thiamine HCl (vitamin B1) 100 mg 100 mg PO DAILY #100 tabs 06/16/23 06/19/24 Rx tablet budesonide 160 mcg-glycopyr 9 See Rx Instructions .Route 11/03/23 06/19/24 Rx mcg-formot 4.8 mcg/actuation HFA .COMPLEX #10.7 grams inhaler (Breztri Aerosphere) ipratropium bromide 21 mcg (0.03 See Rx Instructions .Route 02/15/24 06/19/24 Rx %) nasal spray .COMPLEX #30 mL omeprazole 20 mg tablet,delayed 20 mg PO DAILY #90 tabs 06/04/24 06/19/24 Rx release albuterol sulfate 90 mcg/actuation 1 inh inhalation Q4H #8.5 grams 06/07/24 06/19/24 Rx aerosol inhaler cholecalciferol (vitamin D3) 25 1,000 unit PO DAILY 06/11/24 06/19/24 History mcg (1,000 unit) capsule fluticasone propionate 50 1 spray intranasal BID PRN nasal 06/11/24 06/19/24 History mcg/actuation nasal congestion spray,suspension spironolactone 25 mg tablet 25 mg PO DAILY 06/11/24 06/19/24 History Allergies Allergy/AdvReac Type Severity Reaction Status Date / Time roflumilast (From [facility]) Allergy Unknown Hives Verified 06/22/24 09:56 morphine AdvReac Unknown Nausea Verified 06/22/24 09:56 Vital Signs Vital Signs - 24 hr 06/22/24 09:20 Temperature 98.8 F Pulse Rate 91 Respiratory Rate 18 Blood Pressure 104/76 Pulse Oximetry 100 Oxygen Delivery Room Air Results Labs 06/22/24 09:41 Labs: Short CBC 06/22/24 Range/Units 09:41 Plt Count 310 (150-375) k/mm3
--- NOTE | 2024-06-22 13:45 | P.HP_ITS ---
H&P: HPI History of Present Illness Date/Time: 06/22/24 13:45 Chief Complaint: Shortness of breath Narrative: 73-year-old female with history of lung nodule, COPD, hypertension, CAD presents the hospital for a planned lung biopsy. During the biopsy she ended up with a pneumothorax with chest tube placement. The hospitalist team was consulted for admission to the hospital and medical management of patient by the radiologist. Patient complains of acute pain with the chest tube is difficulties coughing and deep breathing. Patient denies other symptoms. Patient had a unsuccessful CT-guided biopsy of 11 mm left upper lobe pulmonary nodule but developed a pneumothorax. A Joe catheter chest tube was placed. Lab work shows anemia with hemoglobin of 10.0, sodium of 132, BUN of 18, creatinine of 0.66, elevated AST of 53 ALT of 85. Review of Systems Review of Systems: 12 systems were reviewed and are negativ e except for as per HPI. 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 Osteoporosis without current pathological fracture Other emphysema Surgical History Surgical History H/O breast surgery History of heart artery stent Family History Family History Sibling Hypertension Family history of malignant neoplasm of breast in first degree relative Family history of dementia Father Family history of cardiovascular disease Cerebrovascular accident Mother Family history of cardiovascular disease Family history of malignant neoplasm of urinary bladder Social History Social History Smoking packs per day: 0.25 Smoking cigarettes per day: 5.0 Years smoked: 45 Smoking pack-years: 11.25 Smoking status: Current every day smoker Second hand tobacco smoke exposure: No Alcohol intake: current Drinks per week: 2 Substance use: never Substance use type: does not use Do You Feel Safe in your Home?: Yes Lack of Transportation: No Lack of Food: Never True Current Housing: I Have Housing Concerned About Future Housing: No Difficulty Paying Gas/Electric Bills: No Difficulty Paying for Meds: No Currently Unemployed: No Education: High School Diploma/GED Difficulty w/ Childcare or Family Care: No Living arrangements: alone Gender identity (if verbalized by the patient): Female Spiritual care concerns: No Meds Home Medications and Allergies Home Medications ?Medication ?Instructions ?Recorded ?Confirmed ?Type aspirin 81 mg tablet,delayed 81 mg PO DAILY 02/19/19 06/19/24 History release atorvastatin 80 mg tablet 80 mg PO DAILY 03/20/20 06/19/24 History clobetasol 0.05 % topical cream 1 applic topical DAILY PRN 03/20/20 06/19/24 History PSORIASIS loratadine 10 mg capsule 10 mg PO DAILY PRN allergy symptoms 03/20/20 06/19/24 History tacrolimus 0.1 % topical ointment 1 applic topical BID PRN PSORIASIS 03/20/20 06/19/24 History triamcinolone acetonide 0.1 % 1 applic topical BID PRN PSORIASIS 03/20/20 06/19/24 History topical cream ezetimibe 10 mg tablet (Zetia) 10 mg PO DAILY #30 tabs 12/17/20 06/19/24 Rx Zoledronic acid See Rx Instructions .Route 02/03/23 06/19/24 Rx .COMPLEX #100 mL empagliflozin 10 mg tablet 10 mg PO DAILY 02/09/23 06/19/24 History (Jardiance) sacubitril 24 mg-valsartan 26 mg 1 tablet PO BID 02/09/23 06/19/24 History tablet (Entresto) inhalational spacing device (Space #1 ea 04/26/23 06/19/24 Rx Chamber) thiamine HCl (vitamin B1) 100 mg 100 mg PO DAILY #100 tabs 06/16/23 06/19/24 Rx tablet budesonide 160 mcg-glycopyr 9 See Rx Instructions .Route 11/03/23 06/19/24 Rx mcg-formot 4.8 mcg/actuation HFA .COMPLEX #10.7 grams inhaler (Breztri Aerosphere) ipratropium bromide 21 mcg (0.03 See Rx Instructions .Route 02/15/24 06/19/24 Rx %) nasal spray .COMPLEX #30 mL omeprazole 20 mg tablet,delayed 20 mg PO DAILY #90 tabs 06/04/24 06/19/24 Rx release albuterol sulfate 90 mcg/actuation 1 inh inhalation Q4H #8.5 grams 06/07/24 06/19/24 Rx aerosol inhaler cholecalciferol (vitamin D3) 25 1,000 unit PO DAILY 06/11/24 06/19/24 History mcg (1,000 unit) capsule fluticasone propionate 50 1 spray intranasal BID PRN nasal 06/11/24 06/19/24 History mcg/actuation nasal congestion spray,suspension spironolactone 25 mg tablet 25 mg PO DAILY 06/11/24 06/19/24 History Allergies Allergy/AdvReac Type Severity Reaction Status Date / Time roflumilast (From [facility]) Allergy Unknown Hives Verified 06/22/24 09:56 morphine AdvReac Unknown Nausea Verified 06/22/24 09:56 Vital Signs Vital Signs - 24 hr 06/22/24 09:20 06/22/24 13:13 06/22/24 13:25 Temperature 98.8 F Pulse Rate 91 137 H 143 H Respiratory Rate 18 28 H 30 H Blood Pressure 104/76 155/93 H 141/85 H Pulse Oximetry 100 100 100 Oxygen Delivery Room Air Nasal Cannula Nasal Cannula Oxygen Flow Rate 3 3 06/22/24 13:35 Temperature Pulse Rate 124 H Respiratory Rate 22 H Blood Pressure 118/71 Pulse Oximetry 100 Oxygen Delivery Nasal Cannula Oxygen Flow Rate 3 Exam Narrative: General: well appearing, appears stated age. HEENT: normocephalic, atraumatic. Mucous membranes moist. EOMI, PERRLA, bilateral sclera anicteric, no conjunctival injection. Neck supple without JVD, lymphadenopathy, or bruit. Respiratory: clear to ascultation bilaterally. No rales/rhonic/wheezes. Left Chest tube with intermittent air leak 2 suction Cardiovascular: Regular rate and rhythm, normal S1-S2 upon ascultation. No murmurs, rubs, or clicks. PMI is nondisplaced, capillary refill less than 3 second. Abdomen: Soft, round, no pulsatile masses, nondistended and nontender. No rebound, no guarding. No CVA tenderness, no hepatosplenomegaly. Bowel sounds present to all four quadrants. No high pitch or tinkling sounds, resonant to percussion. Extremities: No cyanosis, clubbing, or edema present. Pulses are palpable 2/2. Active ROM to all four extremities. Neuro: Alert and orientated x 4. PERRLA. Cranial nerves 2-12 intact without focal deficit. Skin: Warm, dry, and intact, without rash, erythema, or lesion. Psych: pleasant, cooperative, normal speech, normal affect, no hallucinations, no dysarthia H&P: Results Labs Labs: Short CBC 06/22/24 Range/Units 09:41 Plt Count 310 (150-375) k/mm3 Assessment and Plan Assessment and plan (1) Lung nodule: Code(s): R91.1 - Solitary pulmonary nodule Status: Acute Assessment and Plan: Biopsy on 06/22/2024 with complications by pneumothorax status post chest tube (2) Pneumothorax after biopsy: Code(s): J95.811 - Postprocedural pneumothorax Status: Acute Assessment and Plan: AM chest x-ray CBC and CMP now and in the a.m. Chest tube to suction Telemetry monitoring Incentive spirometer Coughing and deep breathing Okay to place chest tube to water seal for walks Pain management (3) COPD (chronic obstructive pulmonary disease): Qualifiers: COPD type: unspecified COPD Qualified Code(s): J44.9 - Chronic obstructive pulmonary disease, unspecified Code(s): J44.9 - Chronic obstructive pulmonary disease, unspecified Status: Acute Assessment and Plan: Okay for patient to bring inhaler from home (4) Primary hypertension: Code(s): I10 - Essential (primary) hypertension Status: Acute Assessment and Plan: Restart spironolactone Quality VTE Prophylaxis VTE prophylaxis: mechanical ordered Hospitalist MIPS Advance Care Plan I have confirmed that the patient's Advanced Care Plan is present, code status is documented, or surrogate decision maker is listed in patient medical record.: Yes Medication Reconciliation I have utilized all available resources to obtain, update and review the patients current medications (includes all prescriptions, OTC, herbals, cannabis, and nutritional supplements).: Yes
[2024-06-22] MEDS: HYDROcodone/acetaminophen (*CRX) 5-325 MG TABLET 1 TAB PO (16:31)
[2024-06-22 16:57] LABS: Basophils Percent Auto 0.5 % (0.2-1.2); Eosinophils Percent Auto 0.1 % (0-4.4); Hematocrit 30.6 % (37.0-47.0); Immature Granulocyte Absolute 0.08 K/mm3 (0.00-0.031); Immature Granulocyte Percent A 1.1 % (0-0.5); Lymphocytes Absolute Auto 1.46 K/mm3 (0.9-3.2); Lymphocytes Percent Auto 19.7 % (18.3-44.2); Mean Corpuscular HGB Conc 32.7 g/dl (32-36); Mean Corpuscular Hemoglobin 35.1 pg (26-34); Mean Corpuscular Volume 107.4 fl (80-100); Mean Platelet Volume 9.5 fl (7.4-10.4); Monocytes Absolute Auto 1.4 K/mm3 (0.1-0.6); Monocytes Percent Auto 18.5 % (2.6-8.5); Neutrophils Absolute Auto 4.4 K/mm3 (1.3-6.7); Neutrophils Percent Auto 60.1 % (45.5-73.1); Platelet Count Result 332 k/mm3 (150-375); Red Blood Count 2.85 M/mm3 (4.2-5.4); Red Cell Distribution Width 12.8 % (11.5-14.5); White Blood Count 7.4 K/mm3 (4.5-10.0)
[2024-06-22 17:12] LABS: Alanine Aminotransferase 85 U/L (6-35); Albumin Level 3.7 g/dL (3.5-5.1); Alkaline Phosphatase 96 U/L (38-126); Anion Gap 9 mmol/L (4-12); Aspartate Amino Transferase 53 U/L (14-36); Bilirubin,Total 0.6 mg/dL (0.2-1.3); Blood Urea Nitrogen 18 mg/dL (7-17); Carbon Dioxide 27 mmol/L (22-30); Chloride 96 mmol/L (98-107); Estimated CRCL calculation 57 ml/min; Estimated Glomerular Filt Rate > 60; Glucose 115 mg/dL (65-110); Potassium 3.7 mmol/L (3.4-5.0); Sodium 132 mmol/L (137-145)
[2024-06-22 18:03] LABS: Platelet Estimate Adequate (Adequate); Schistocytes None Seen
[2024-06-22 18:04] LABS: Band Neutrophils Percent 0 % (0-6); Macrocytosis 1+ (NORMAL)
--- NOTE | 2024-06-22 19:04 | ADMGEN ---
This patient, Oralia Garsia, was admitted to [facility] Surg Room 326-01. Patient/family oriented to hospital policies and general routines including ID bracelet, bed and alarms, visiting hours, pain management, procedures, bathroom and other care routines, personal items, smoking policy, room service/diet, and visiting hours. Information on how to activate the Rapid Response Team has been discussed. Patient/Family are encouraged to report perceived risks to care and to ask questions if they do not understand what they are told or what they should do.
[2024-06-22] MEDS: LIDOCAINE 5% PATCH 1 PATCH TRANSDERM (21:41)
[2024-06-22] MEDS: methocarbamoL 500 MG TABLET PO (21:42)
[2024-06-22] MEDS: guaiFENesin/DEXTROMETHORPHAN 10 ML UDC PO (21:42)
[2024-06-22] MEDS: GABAPENTIN 300 MG CAPSULE PO (21:42)
[2024-06-22] MEDS: SACUBITRIL/VALSARTAN 24-26 MG TABLET 1 TAB PO (21:42)
[2024-06-22] MEDS: ALBUTEROL SULFATE (*SP) AEROSOL 1 PUFF INHALATION (23:28)
[2024-06-22] MEDS: HYDROcodone/acetaminophen (*CRX) 10-325 MG TABLET 1 TAB PO (23:48)
[2024-06-23] VITALS (11 sets, daily range): BP systolic 88–120; BP diastolic 54–70; PULSE 81–117; RESP 16–20; TEMP 36.4–36.9; O2SAT 93–100
[2024-06-23] MEDS: SODIUM CHLORIDE 0.9% IV 1,000 ML 100 ML IV CONT (05:14)
[2024-06-23] MEDS: methocarbamoL 500 MG TABLET PO ×3 (05:15→20:56)
[2024-06-23] MEDS: GABAPENTIN 300 MG CAPSULE PO ×3 (05:15→20:56)
[2024-06-23] MEDS: guaiFENesin/DEXTROMETHORPHAN 10 ML UDC PO ×5 (05:15→20:54)
[2024-06-23 06:23] LABS: Basophils Percent Auto 0.7 % (0.2-1.2); Eosinophils Absolute Auto 0.1 K/mm3 (0-0.3); Eosinophils Percent Auto 1.4 % (0-4.4); Hematocrit 28.1 % (37.0-47.0); Immature Granulocyte Absolute 0.07 K/mm3 (0.00-0.031); Immature Granulocyte Percent A 1.2 % (0-0.5); Lymphocytes Absolute Auto 1.93 K/mm3 (0.9-3.2); Lymphocytes Percent Auto 32.9 % (18.3-44.2); Mean Corpuscular Hemoglobin 34.5 pg (26-34); Mean Corpuscular Volume 107.7 fl (80-100); Mean Platelet Volume 9.5 fl (7.4-10.4); Monocytes Percent Auto 16.5 % (2.6-8.5); Neutrophils Absolute Auto 2.8 K/mm3 (1.3-6.7); Neutrophils Percent Auto 47.3 % (45.5-73.1); Platelet Count Result 312 k/mm3 (150-375); Red Blood Count 2.61 M/mm3 (4.2-5.4); Red Cell Distribution Width 12.8 % (11.5-14.5); White Blood Count 5.9 K/mm3 (4.5-10.0)
[2024-06-23 06:33] LABS: Anion Gap 6 mmol/L (4-12); Blood Urea Nitrogen 19 mg/dL (7-17); Calcium 8.3 mg/dL (8.4-10.2); Carbon Dioxide 27 mmol/L (22-30); Chloride 101 mmol/L (98-107); Estimated CRCL calculation 55 ml/min; Estimated Glomerular Filt Rate > 60; Glucose 110 mg/dL (65-110); Potassium 3.4 mmol/L (3.4-5.0); Sodium 134 mmol/L (137-145)
[2024-06-23] MEDS: ALBUTEROL SULFATE (*SP) AEROSOL 1 PUFF INHALATION (07:08)
[2024-06-23] MEDS: FLUTICASONE/UMECLIDIN/VILANTER 100-62.5-25 MCG ELLIPTA 1 PUFF INHALATION (07:09)
[2024-06-23 07:35] LABS: Hypochromasia 1+; Platelet Estimate Adequate (Adequate); Schistocytes None Seen
[2024-06-23] MEDS: EZETIMIBE 10 MG TABLET PO (08:34)
[2024-06-23] MEDS: SPIRONOLACTONE 25 MG TABLET PO (08:34)
[2024-06-23] MEDS: SACUBITRIL/VALSARTAN 24-26 MG TABLET 1 TAB PO ×2 (08:34→20:55)
[2024-06-23] MEDS: EMPAGLIFLOZIN 10 MG TABLET PO (08:34)
[2024-06-23] MEDS: PANTOPRAZOLE 40 MG TABLET PO (08:34)
[2024-06-23] MEDS: ATORVASTATIN 40 MG TABLET 80 MG PO (08:34)
[2024-06-23] MEDS: ASPIRIN 81 MG ENTERIC TABLET PO (08:34)
[2024-06-23] MEDS: LIDOCAINE 5% PATCH 1 PATCH TRANSDERM (08:35)
--- NOTE | 2024-06-23 09:24 | P.PNIM_ITS ---
Progress Note: A&P Assessment and Plan (1) Lung nodule: Code(s): R91.1 - Solitary pulmonary nodule Status: Acute (2) Pneumothorax after biopsy: Code(s): J95.811 - Postprocedural pneumothorax Status: Acute (3) COPD (chronic obstructive pulmonary disease): Qualifiers: COPD type: unspecified COPD Qualified Code(s): J44.9 - Chronic obstructive pulmonary disease, unspecified Code(s): J44.9 - Chronic obstructive pulmonary disease, unspecified Status: Acute (4) Primary hypertension: Code(s): I10 - Essential (primary) hypertension Status: Acute Plan 73-year-old female with history of lung nodule, COPD, hypertension, CAD presents the hospital for a planned lung biopsy. During the biopsy she ended up with a pneumothorax with chest tube placement. The hospitalist team was consulted for admission to the hospital and medical management of patient by the radiologist. Patient complains of acute pain with the chest tube is difficulties coughing and deep breathing. Patient denies other symptoms. Patient had a unsuccessful CT-guided biopsy of 11 mm left upper lobe pulmonary nodule but developed a pneumothorax. A Joe catheter chest tube was placed. Lab work shows anemia with hemoglobin of 10.0, sodium of 132, BUN of 18, creatinine of 0.66, elevated AST of 53 ALT of 85. Continue chest tube. We will request consult General surgery for chest tube management. Currently on a water-seal drainage. Pain management COPD Hypertension Ischemic cardiomyopathy echo 05/24 40% EF Hyperlipidemia Coronary artery disease status post stents in the past Osteoporosis Lung nodule being followed by Pulmonary with recent increase in size of the left upper lobe nodule. PET scan 05/29/2024 with moderately increased FDG uptake with an enlarging now 11 mm left upper nodule concern for primary bronchogenic carcinoma. Indeterminate 5 mm left parotid nodule. DVT prophylaxis Code status full code Subjective Date/time seen: 06/23/24 09:24 Interval history: Complains of incisional pain at left chest tube site. Breathing has improved. No fever chills. Review of Systems Review of Systems: All systems reviewed & are unremarkable except as noted in HPI and below Exam Narrative: General: well appearing, appears stated age. HEENT: normocephalic, atraumatic. Mucous membranes moist. Neck supple without JVD, lymphadenopathy, or bruit. Respiratory: clear to ascultation bilaterally. No rales/rhonic/wheezes. Left Chest tube with intermittent air leak 2 suction Cardiovascular: Regular rate and rhythm, normal S1-S2 upon ascultation. No murmurs, rubs, or clicks. PMI is nondisplaced, capillary refill less than 3 second. Abdomen: Soft, round, no pulsatile masses, nondistended and nontender. No rebound, no guarding. No CVA tenderness, no hepatosplenomegaly. Bowel sounds present to all four quadrants. No high pitch or tinkling sounds, resonant to percussion. Extremities: No cyanosis, clubbing, or edema present. Pulses are palpable 2/2. Active ROM to all four extremities. Neuro: Alert and orientated x 4. PERRLA. Cranial nerves 2-12 intact without focal deficit. Skin: Warm, dry, and intact, without rash, erythema, or lesion. Psych: pleasant, cooperative, normal speech, normal affect, no hallucinations, no dysarthia Objective Data Vital Signs Vital Signs: Vital Signs - 24 hr 06/22/24 13:13 06/22/24 13:25 06/22/24 13:35 Temperature Pulse Rate 137 H 143 H 124 H Respiratory Rate 28 H 30 H 22 H Blood Pressure 155/93 H 141/85 H 118/71 Pulse Oximetry 100 100 100 Oxygen Delivery Nasal Cannula Nasal Cannula Nasal Cannula Oxygen Flow Rate 3 3 3 06/22/24 13:50 06/22/24 14:05 06/22/24 14:20 Temperature Pulse Rate 111 H 103 H 107 H Respiratory Rate 18 20 18 Blood Pressure 107/75 112/86 94/66 L Pulse Oximetry 100 100 100 Oxygen Delivery Nasal Cannula Nasal Cannula Nasal Cannula Oxygen Flow Rate 3 3 3 06/22/24 14:35 06/22/24 15:00 06/22/24 15:15 Temperature 98.1 F 98.7 F 98.0 F Pulse Rate 97 101 H 102 H Respiratory Rate 20 20 20 Blood Pressure 119/73 128/77 119/83 Pulse Oximetry 100 100 100 Oxygen Delivery Nasal Cannula Oxygen Flow Rate 3 06/22/24 15:45 06/22/24 16:45 06/22/24 19:56 Temperature 97.9 F 99.3 F 97.7 F Pulse Rate 98 100 97 Respiratory Rate 20 20 16 Blood Pressure 114/90 90/58 L 88/56 L Pulse Oximetry 100 100 99 Oxygen Delivery Oxygen Flow Rate 06/22/24 20:00 06/22/24 20:00 06/22/24 20:00 Temperature Pulse Rate 97 99 Respiratory Rate 16 Blood Pressure Pulse Oximetry 98 98 Oxygen Delivery Nasal Cannula Nasal Cannula Oxygen Flow Rate 3 2 06/22/24 22:14 06/23/24 00:00 06/23/24 03:00 Temperature 97.9 F 97.5 F L Pulse Rate 117 H 117 H 81 Respiratory Rate 16 16 Blood Pressure 93/59 L 88/58 L Pulse Oximetry 100 98 Oxygen Delivery Oxygen Flow Rate 06/23/24 04:00 06/23/24 05:26 06/23/24 07:18 Temperature Pulse Rate 94 Respiratory Rate Blood Pressure 120/70 Pulse Oximetry 97 Oxygen Delivery Nasal Cannula Oxygen Flow Rate 3 06/23/24 08:00 Temperature 97.7 F Pulse Rate 100 Respiratory Rate 16 Blood Pressure 92/60 L Pulse Oximetry 100 Oxygen Delivery Oxygen Flow Rate Intake/Output Intake/Output: Intake & Output 06/20/24 06/21/24 06/22/24 06/23/24 23:59 23:59 23:59 23:59 Intake Total 540 120 Output Total 400 Balance 540 -280 Meds/Results Medications: Active Medications Generic Name Dose Route Start Last Admin Trade Name Freq PRN Reason Stop Dose Admin Acetaminophen 650 mg 06/22/24 13:45 Acetaminophen 325 Mg Tablet PO Q4H PRN Mild Pain (1-3) or Fever Hydrocodone Bitart/Acetaminophen 1 tab 06/22/24 13:45 06/22/24 16:31 Hydrocodone/Acetaminophen (*Crx) 5-325 Mg Tablet PO 1 tab Q4H PRN Administration Moderate Pain (4-6) Hydrocodone Bitart/Acetaminophen 1 tab 06/22/24 17:18 06/22/24 23:48 Hydrocodone/Acetaminophen (*Crx) 10-325 Mg Tablet PO 1 tab Q4H PRN Administration Pain Rated 7-10 Albuterol 1 puff 06/22/24 20:00 06/23/24 07:08 Albuterol Sulfate (*Sp) Aerosol 1 Puff INHALATION 1 puff Q4HRT ALESSIO Administration Aspirin 81 mg 06/23/24 09:00 06/23/24 08:34 Aspirin 81 Mg Enteric Tablet PO 81 mg DAILY ALESSIO Administration Atorvastatin Calcium 80 mg 06/23/24 09:00 06/23/24 08:34 Atorvastatin 40 Mg Tablet PO 80 mg DAILY ALESSIO Administration Ezetimibe 10 mg 06/23/24 09:00 06/23/24 08:34 Ezetimibe 10 Mg Tablet PO 10 mg DAILY ALESSIO Administration Empagliflozin 10 mg 06/23/24 09:00 06/23/24 08:34 Empagliflozin 10 Mg Tablet PO 10 mg DAILY ALESSIO Administration Fluticasone/Umeclidinium/Vilanterol 1 puff 06/23/24 09:00 06/23/24 07:09 Fluticasone/Umeclidin/Vilanter 100-62.5-25 Mcg Ellipta INHALATION 1 puff DAILY ALESSIO Administration Gabapentin 300 mg 06/22/24 22:00 06/23/24 05:15 Gabapentin 300 Mg Capsule PO 300 mg Q8H ALESSIO Administration Guaifenesin/Dextromethorphan 10 ml 06/22/24 21:00 06/23/24 08:35 Guaifenesin/Dextromethorphan 10 Ml Udc PO 10 ml Q4HR ALESSIO Administration Sodium Chloride 1,000 mls @ 100 mls/hr 06/22/24 17:15 06/23/24 08:35 Normal Saline Iv IV CONT Not Given .Q10H ALESSIO Lidocaine 1 patch 06/22/24 21:10 06/23/24 08:35 Lidocaine 5% Patch TRANSDERM 1 patch DAILY ALESSIO Administration Methocarbamol 500 mg 06/22/24 22:00 06/23/24 05:15 Methocarbamol 500 Mg Tablet PO 500 mg Q8H ALESSIO Administration Ondansetron HCl 4 mg 06/22/24 13:47 Ondansetron Inj 4 Mg/2 Ml Vial IV PUSH Q4H PRN Nausea And Vomiting Pantoprazole Sodium 40 mg 06/23/24 09:00 06/23/24 08:34 Pantoprazole 40 Mg Tablet PO 40 mg QAM ALESSIO Administration Sacubitril/Valsartan 1 tab 06/22/24 21:00 06/23/24 08:34 Sacubitril/Valsartan 24-26 Mg Tablet PO 1 tab Q12HR ALESSIO Administration Spironolactone 25 mg 06/23/24 09:00 06/23/24 08:34 Spironolactone 25 Mg Tablet PO 25 mg DAILY ALESSIO Administration Radiology Results: ITS Impressions Chest Tube Insertion 06/22/24 16:54 IMPRESSION: 1. Unsuccessful attempt at CT-guided biopsy of an 11 mm left upper lobe pulmonary nodule complicated by development of a symptomatic left pneumothorax. 2. Successful CT-guided chest tube placement with resolution of the left pneumothorax. Lung Biopsy CT 06/22/24 16:54 IMPRESSION: 1. Unsuccessful attempt at CT-guided biopsy of an 11 mm left upper lobe pulmonary nodule complicated by development of a symptomatic left pneumothorax. 2. Successful CT-guided chest tube placement with resolution of the left pneumothorax. Chest X-Ray 06/23/24 07:32 IMPRESSION: 1. Tiny left apical pneumothorax with unchanged left chest tube in place. 2. Mild emphysema with unchanged reticular opacities at the right lower lung zone which could been improving on recent chest CT studies consistent with resolving pneumonia. Labs Labs: Laboratory Results - last 24 hr 06/22/24 06/22/24 06/22/24 09:41 09:48 16:44 WBC 7.4 RBC 2.85 L Hgb 10.0 L Hct 30.6 L MCV 107.4 H MCH 35.1 H MCHC 32.7 RDW 12.8 Plt Count 310 332 MPV 9.5 9.5 Immature Gran % (Auto) 1.1 H Neut % (Auto) 60.1 Lymph % (Auto) 19.7 [place] % (Auto) 18.5 H Eos % (Auto) 0.1 Baso % (Auto) 0.5 Lymph # (Auto) 1.46 [place] # (Auto) 1.4 H Eos # (Auto) 0.0 Baso # (Auto) 0.0 Abs Immat Gran (auto) 0.08 H Absolute Neuts (auto) 4.4 Absolute Nucleated RBC 0.000 Band Neutrophils % 0 Nucleated RBC % 0.0 Platelet Estimate Adequate Hypochromasia Macrocytosis 1+ Schistocytes None seen PT 12.7 INR 0.9 Sodium 132 L Potassium 3.7 Chloride 96 L Carbon Dioxide 27 Anion Gap 9 BUN 18 H Creatinine 0.66 L Estim Creat Clear Calc 57 Estimated GFR > 60 Glucose 115 H Calcium 9.0 Total Bilirubin 0.6 AST 53 H ALT 85 H Alkaline Phosphatase 96 Total Protein 7.0 Albumin 3.7 06/23/24 06:05 WBC 5.9 RBC 2.61 L Hgb 9.0 L Hct 28.1 L MCV 107.7 H MCH 34.5 H MCHC 32.0 RDW 12.8 Plt Count 312 MPV 9.5 Immature Gran % (Auto) 1.2 H Neut % (Auto) 47.3 Lymph % (Auto) 32.9 [place] % (Auto) 16.5 H Eos % (Auto) 1.4 Baso % (Auto) 0.7 Lymph # (Auto) 1.93 [place] # (Auto) 1.0 H Eos # (Auto) 0.1 Baso # (Auto) 0.0 Abs Immat Gran (auto) 0.07 H Absolute Neuts (auto) 2.8 Absolute Nucleated RBC 0.000 Band Neutrophils % Not Reportable Nucleated RBC % 0.0 Platelet Estimate Adequate Hypochromasia 1+ Macrocytosis Schistocytes None seen PT INR Sodium 134 L Potassium 3.4 Chloride 101 Carbon Dioxide 27 Anion Gap 6 BUN 19 H Creatinine 0.69 L Estim Creat Clear Calc 55 Estimated GFR > 60 Glucose 110 Calcium 8.3 L Total Bilirubin AST ALT Alkaline Phosphatase Total Protein Albumin
[2024-06-23] MEDS: HYDROcodone/acetaminophen (*CRX) 10-325 MG TABLET 1 TAB PO (12:50)
[2024-06-23] MEDS: HYDROcodone/acetaminophen (*CRX) 5-325 MG TABLET 1 TAB PO (20:56)
[2024-06-24] VITALS (10 sets, daily range): BP systolic 100–120; BP diastolic 51–79; PULSE 70–120; RESP 16–20; TEMP 36.1–37.4; O2SAT 94–99
[2024-06-24] MEDS: guaiFENesin/DEXTROMETHORPHAN 10 ML UDC PO ×6 (00:46→19:48)
[2024-06-24] MEDS: ALBUTEROL SULFATE (*SP) AEROSOL 1 PUFF INHALATION (00:55)
[2024-06-24] MEDS: HYDROcodone/acetaminophen (*CRX) 10-325 MG TABLET 1 TAB PO ×2 (01:07→19:43)
[2024-06-24] MEDS: methocarbamoL 500 MG TABLET PO ×3 (05:36→19:43)
[2024-06-24] MEDS: GABAPENTIN 300 MG CAPSULE PO ×3 (05:42→19:43)
[2024-06-24 06:12] LABS: Basophils Percent Auto 0.5 % (0.2-1.2); Eosinophils Absolute Auto 0.1 K/mm3 (0-0.3); Eosinophils Percent Auto 1.6 % (0-4.4); Hematocrit 27.9 % (37.0-47.0); Hemoglobin 8.7 g/dL (12.0-15.0); Immature Granulocyte Absolute 0.06 K/mm3 (0.00-0.031); Lymphocytes Absolute Auto 2.03 K/mm3 (0.9-3.2); Lymphocytes Percent Auto 32.6 % (18.3-44.2); Mean Corpuscular HGB Conc 31.2 g/dl (32-36); Mean Corpuscular Hemoglobin 34.5 pg (26-34); Mean Corpuscular Volume 110.7 fl (80-100); Mean Platelet Volume 9.3 fl (7.4-10.4); Monocytes Percent Auto 16.2 % (2.6-8.5); Neutrophils Percent Auto 48.1 % (45.5-73.1); Platelet Count Result 317 k/mm3 (150-375); Red Blood Count 2.52 M/mm3 (4.2-5.4); Red Cell Distribution Width 12.6 % (11.5-14.5); White Blood Count 6.2 K/mm3 (4.5-10.0)
[2024-06-24 06:29] LABS: Alanine Aminotransferase 46 U/L (6-35); Albumin Level 2.9 g/dL (3.5-5.1); Alkaline Phosphatase 81 U/L (38-126); Anion Gap 7 mmol/L (4-12); Aspartate Amino Transferase 33 U/L (14-36); Bilirubin,Total 0.4 mg/dL (0.2-1.3); Blood Urea Nitrogen 12 mg/dL (7-17); Calcium 8.2 mg/dL (8.4-10.2); Carbon Dioxide 25 mmol/L (22-30); Chloride 102 mmol/L (98-107); Estimated CRCL calculation 57 ml/min; Estimated Glomerular Filt Rate > 60; Glucose 129 mg/dL (65-110); Magnesium 1.4 mg/dL (1.6-2.3); Potassium 3.5 mmol/L (3.4-5.0); Sodium 134 mmol/L (137-145)
[2024-06-24 06:42] LABS: Hypochromasia 1+; Macrocytosis 1+ (NORMAL); Platelet Estimate Adequate (Adequate); Schistocytes None Seen
[2024-06-24] MEDS: FORMOTEROL BY MOUTH ×2 (08:11→19:42)
[2024-06-24] MEDS: GLYCOPYRROLATE BY MOUTH ×2 (08:11→19:42)
[2024-06-24] MEDS: BUDESONIDE BY MOUTH ×2 (08:11→19:42)
[2024-06-24] MEDS: SACUBITRIL/VALSARTAN 24-26 MG TABLET 1 TAB PO ×2 (09:16→19:45)
[2024-06-24] MEDS: ASPIRIN 81 MG ENTERIC TABLET PO (09:16)
[2024-06-24] MEDS: EZETIMIBE 10 MG TABLET PO (09:16)
[2024-06-24] MEDS: SPIRONOLACTONE 25 MG TABLET PO (09:16)
[2024-06-24] MEDS: EMPAGLIFLOZIN 10 MG TABLET PO (09:16)
[2024-06-24] MEDS: PANTOPRAZOLE 40 MG TABLET PO (09:16)
[2024-06-24] MEDS: ATORVASTATIN 40 MG TABLET 80 MG PO (09:18)
[2024-06-24] MEDS: HYDROcodone/acetaminophen (*CRX) 5-325 MG TABLET 1 TAB PO ×3 (09:36→17:05)
[2024-06-24] MEDS: MAGNESIUM SULF 2 GM/WATER 50ML 2 GM/50 ML BAG IVPB (10:06)
--- NOTE | 2024-06-24 12:36 | P.CONGS_ITS ---
Assessment and Plan Assessment and plan (1) Pneumothorax after biopsy: Code(s): J95.811 - Postprocedural pneumothorax Status: Acute Assessment and Plan: * I have reviewed the imaging and assessed the patient. She has a left-sided chest tube in place from pneumothorax after attempted left lung biopsy. The chest tube has been on suction, but she still has evidence of a small apical pneumothorax and an air leak. Will continue monitoring chest tube at this time and plan for a chest x-ray tomorrow with the Pleur-evac to water-seal. If air leak persists, I would recommend transfer to a facility with thoracic surgery. (2) Lung nodule: Code(s): R91.1 - Solitary pulmonary nodule Status: Acute (3) Primary hypertension: Code(s): I10 - Essential (primary) hypertension Status: Acute (4) Tobacco abuse: Code(s): Z72.0 - Tobacco use Status: Acute (5) Ischemic cardiomyopathy: Code(s): I25.5 - Ischemic cardiomyopathy Status: Acute History of Present Illness Consult details Consult date: 06/24/24 Reason for consult: other (Left pneumothorax) Requesting physician: Matthew Shi MD Narrative: This is a 73-year-old woman who I am asked to see for a left pneumothorax with chest tube. She was undergoing CT-guided left lung biopsy on 06/22/2024. The biopsy was aborted because patient began developing a left pneumothorax during the procedure. Left-sided chest tube was placed by the interventional radiologist and postprocedure imaging demonstrated reinflation of the lung. Yesterday she had a chest x-ray that showed a small residual apical pneumothorax. I am asked to manage the chest tube while she remains in the hospital. She reports minimal pain at the chest tube site and denies any significant shortness of breath. Review of Systems 2 Review of Systems: All systems reviewed & are unremarkable except as noted in HPI and below Constitutional: Constitutional: Denies chills and Denies fever(s) Eyes: Eyes: Denies change in vision ENT: Denies hearing loss, Denies neck pain and Denies sore throat Cardiovascular: Cardiovascular: Denies chest pain and Denies dyspnea Respiratory: Respiratory: Reports as per HPI, Denies cough, Denies dyspnea and Denies wheezing Gastrointestinal: Gastrointestinal: Denies abdominal pain Genitourinary: Genitourinary: Denies hematuria and Denies dysuria Musculoskeletal: Musculoskeletal: Denies arthralgias, Denies joint swelling and Denies neck pain Allergic/Immunologic: Allergic/Immunologic: Denies wheezing PMFSH Past Medical History Medical History Nodule of right lung Elevated liver enzymes Ischemic cardiomyopathy ECHO 05/24 40% EF COPD (chronic obstructive pulmonary disease) Hyperlipidemia Primary hypertension Benign hypertension Chronic obstructive pulmonary disease 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 Osteoporosis without current pathological fracture Other emphysema Surgical History Surgical History H/O breast surgery History of heart artery stent Family History Family History Sibling Hypertension Family history of malignant neoplasm of breast in first degree relative Family history of dementia Father Family history of cardiovascular disease Cerebrovascular accident Mother Family history of cardiovascular disease Family history of malignant neoplasm of urinary bladder Social History Social History Smoking packs per day: 0.25 Smoking cigarettes per day: 5.0 Years smoked: 45 Smoking pack-years: 11.25 Smoking status: Current every day smoker Second hand tobacco smoke exposure: No Alcohol intake: current Drinks per week: 2 Substance use: never Substance use type: does not use Do You Feel Safe in your Home?: Yes Lack of Transportation: No Lack of Food: Never True Current Housing: I Have Housing Concerned About Future Housing: No Difficulty Paying Gas/Electric Bills: No Difficulty Paying for Meds: No Currently Unemployed: No Education: High School Diploma/GED Difficulty w/ Childcare or Family Care: No Living arrangements: alone Gender identity (if verbalized by the patient): Female Spiritual care concerns: No Meds Home Medications and Allergies Home Medications ?Medication ?Instructions ?Recorded ?Confirmed ?Type aspirin 81 mg tablet,delayed 81 mg PO DAILY 02/19/19 06/19/24 History release atorvastatin 80 mg tablet 80 mg PO DAILY 03/20/20 06/19/24 History clobetasol 0.05 % topical cream 1 applic topical DAILY PRN 03/20/20 06/19/24 History PSORIASIS loratadine 10 mg capsule 10 mg PO DAILY PRN allergy symptoms 03/20/20 06/19/24 History tacrolimus 0.1 % topical ointment 1 applic topical BID PRN PSORIASIS 03/20/20 06/19/24 History triamcinolone acetonide 0.1 % 1 applic topical BID PRN PSORIASIS 03/20/20 06/19/24 History topical cream ezetimibe 10 mg tablet (Zetia) 10 mg PO DAILY #30 tabs 12/17/20 06/19/24 Rx Zoledronic acid See Rx Instructions .Route 02/03/23 06/19/24 Rx .COMPLEX #100 mL empagliflozin 10 mg tablet 10 mg PO DAILY 02/09/23 06/19/24 History (Jardiance) sacubitril 24 mg-valsartan 26 mg 1 tablet PO BID 02/09/23 06/19/24 History tablet (Entresto) inhalational spacing device (Space #1 ea 04/26/23 06/19/24 Rx Chamber) thiamine HCl (vitamin B1) 100 mg 100 mg PO DAILY #100 tabs 06/16/23 06/19/24 Rx tablet budesonide 160 mcg-glycopyr 9 See Rx Instructions .Route 11/03/23 06/19/24 Rx mcg-formot 4.8 mcg/actuation HFA .COMPLEX #10.7 grams inhaler (Breztri Aerosphere) ipratropium bromide 21 mcg (0.03 See Rx Instructions .Route 02/15/24 06/19/24 Rx %) nasal spray .COMPLEX #30 mL omeprazole 20 mg tablet,delayed 20 mg PO DAILY #90 tabs 06/04/24 06/19/24 Rx release albuterol sulfate 90 mcg/actuation 1 inh inhalation Q4H #8.5 grams 06/07/24 06/19/24 Rx aerosol inhaler cholecalciferol (vitamin D3) 25 1,000 unit PO DAILY 06/11/24 06/19/24 History mcg (1,000 unit) capsule fluticasone propionate 50 1 spray intranasal BID PRN nasal 06/11/24 06/19/24 History mcg/actuation nasal congestion spray,suspension spironolactone 25 mg tablet 25 mg PO DAILY 06/11/24 06/19/24 History Allergies Allergy/AdvReac Type Severity Reaction Status Date / Time roflumilast (From Daliresp) Allergy Unknown Hives Verified 06/22/24 09:56 morphine AdvReac Unknown Nausea Verified 06/22/24 09:56 Vital Signs Vital Signs - 24 hr 06/23/24 16:00 06/23/24 16:00 06/23/24 20:00 Temperature 97.9 F 97.8 F Pulse Rate 81 92 Respiratory Rate 16 16 Blood Pressure 102/54 L 102/58 L Pulse Oximetry 100 100 98 Oxygen Delivery Room Air Fraction of Inspired Oxygen 06/23/24 20:00 06/23/24 20:54 06/24/24 00:00 Temperature 98.4 F Pulse Rate 93 97 88 Respiratory Rate 20 16 Blood Pressure 100/65 Pulse Oximetry 97 98 Oxygen Delivery Room Air Fraction of Inspired Oxygen 21 06/24/24 00:00 06/24/24 00:58 06/24/24 04:00 Temperature 98.6 F Pulse Rate 94 73 84 Respiratory Rate 20 18 Blood Pressure 105/65 Pulse Oximetry 99 Oxygen Delivery Fraction of Inspired Oxygen 06/24/24 04:00 06/24/24 08:00 06/24/24 08:11 Temperature 98.1 F Pulse Rate 94 90 Respiratory Rate 18 Blood Pressure 120/55 L Pulse Oximetry 98 95 Oxygen Delivery Room Air Fraction of Inspired Oxygen 21 06/24/24 08:11 Temperature Pulse Rate 70 Respiratory Rate 20 Blood Pressure Pulse Oximetry Oxygen Delivery Fraction of Inspired Oxygen Exam 2 Const: General: alert; No acute distress Orientation/consciousness: patient oriented x3 Limitations: no limitations HENMT: Head: normocephalic and atraumatic Ears: hearing grossly normal bilaterally Face/Nose/Sinus: Normal external nose present and Normal nares present Mouth: Yes Normal oral and palatal mucosa present and Yes moist mucous membranes Eyes: General: appearance normal, both eyes and all related structures C onjunctivae: conjunctivae normal Sclera: sclerae normal Pupils: Equal, round and reactive pupils present EOM: EOMs intact bilaterally Neck: Neck: normal visual inspection, full ROM, no lymphadenopathy, supple and no JVD Lymphatic: no lymphadenopathy noted Chest: Chest palpation & inspection: normal inspection of the chest Resp: Effort & Inspection: normal respiratory effort and able to speak in complete sentences Auscultation: clear to auscultation bilaterally P ercussion: percussion normal Other: Left-sided chest tube in place--slight air leak noted with deep inspiration. Cardio: Jugular venous distension: no JVD Rate: regular rate Rhythm: r egular rhythm Heart sounds: S1 normal heart sound present and S2 normal heart sound present Peripheral pulses: Peripheral pulses 2+ throughout GI: Inspection: normal to inspection Auscultation: normal bowel sounds : General: Yes no CVA tenderness Back/Spine/Pelvis: Back: no CVA tenderness Skin: General skin exam: normal color and dry skin Neuro: General: patient oriented x3, gait normal, moves all extremities, no focal motor deficits and CN's II-XI intact bilaterally Cranial nerves: Yes Equal, round and reactive pupils present Speech: normal speech Extrem: General: normal to inspection and capillary refill normal Results Labs 06/24/24 06:03 06/24/24 06:03 Labs: Abnormal lab results 06/24/24 Range/Units 06:03 RBC 2.52 L (4.2-5.4) M/mm3 Hgb 8.7 L (12.0-15.0) g/dL Hct 27.9 L (37.0-47.0) % MCV 110.7 H (80-100) fl MCH 34.5 H (26-34) pg MCHC 31.2 L (32-36) g/dl Immature Gran % (Auto) 1.0 H (0-0.5) % [place] % (Auto) 16.2 H (2.6-8.5) % [place] # (Auto) 1.0 H (0.1-0.6) K/mm3 Abs Immat Gran (auto) 0.06 H (0.00-0.031) K/mm3 Sodium 134 L (137-145) mmol/L Creatinine 0.66 L (0.7-1.0) mg/dL Glucose 129 H (65-110) mg/dL Calcium 8.2 L (8.4-10.2) mg/dL Magnesium 1.4 L (1.6-2.3) mg/dL ALT 46 H (6-35) U/L Total Protein 6.0 L (6.3-8.2) g/dL Albumin 2.9 L (3.5-5.1) g/dL Diabetes panel 06/24/24 Range/Units 06:03 Sodium 134 L (137-145) mmol/L Potassium 3.5 (3.4-5.0) mmol/L Chloride 102 (98-107) mmol/L Carbon Dioxide 25 (22-30) mmol/L BUN 12 D (7-17) mg/dL Creatinine 0.66 L (0.7-1.0) mg/dL Glucose 129 H (65-110) mg/dL Calcium 8.2 L (8.4-10.2) mg/dL AST 33 (14-36) U/L ALT 46 H (6-35) U/L Alkaline Phosphatase 81 (38-126) U/L Total Protein 6.0 L (6.3-8.2) g/dL Albumin 2.9 L (3.5-5.1) g/dL Calcium panel 06/24/24 Range/Units 06:03 Calcium 8.2 L (8.4-10.2) mg/dL Albumin 2.9 L (3.5-5.1) g/dL Pituitary panel 06/24/24 Range/Units 06:03 Sodium 134 L (137-145) mmol/L Potassium 3.5 (3.4-5.0) mmol/L Chloride 102 (98-107) mmol/L Carbon Dioxide 25 (22-30) mmol/L BUN 12 D (7-17) mg/dL Creatinine 0.66 L (0.7-1.0) mg/dL Glucose 129 H (65-110) mg/dL Calcium 8.2 L (8.4-10.2) mg/dL Adrenal panel 06/24/24 Range/Units 06:03 Sodium 134 L (137-145) mmol/L Potassium 3.5 (3.4-5.0) mmol/L Chloride 102 (98-107) mmol/L Carbon Dioxide 25 (22-30) mmol/L BUN 12 D (7-17) mg/dL Creatinine 0.66 L (0.7-1.0) mg/dL Glucose 129 H (65-110) mg/dL Calcium 8.2 L (8.4-10.2) mg/dL Total Bilirubin 0.4 (0.2-1.3) mg/dL AST 33 (14-36) U/L ALT 46 H (6-35) U/L Alkaline Phosphatase 81 (38-126) U/L Total Protein 6.0 L (6.3-8.2) g/dL Albumin 2.9 L (3.5-5.1) g/dL All other labs normal. Imaging Additional studies: ITS Impressions Chest X-Ray 06/22/24 14:57 IMPRESSION: 1. Resolution of prior echogenic left pneumothorax post left chest tube placement. 2. Chronic reticular opacities in the right lower lung zone which is demonstrated improvement on prior chest CT studies consistent with improving pneumonia. Chest Tube Insertion 06/22/24 16:54 IMPRESSION: 1. Unsuccessful attempt at CT-guided biopsy of an 11 mm left upper lobe pulmonary nodule complicated by development of a symptomatic left pneumothorax. 2. Successful CT-guided chest tube placement with resolution of the left pneumothorax. Lung Biopsy CT 06/22/24 16:54 IMPRESSION: 1. Unsuccessful attempt at CT-guided biopsy of an 11 mm left upper lobe pulmonary nodule complicated by development of a symptomatic left pneumothorax. 2. Successful CT-guided chest tube placement with resolution of the left pneumothorax. Chest X-Ray 06/23/24 07:32 IMPRESSION: 1. Tiny left apical pneumothorax with unchanged left chest tube in place. 2. Mild emphysema with unchanged reticular opacities at the right lower lung zone which could been improving on recent chest CT studies consistent with resolving pneumonia. Chest X-Ray 06/24/24 07:49 Impression: 1: Stable small left apical pneumothorax. 2: Right basilar airspace disease, compatible with pneumonia.
--- NOTE | 2024-06-24 12:45 | PM.IMPN ---
Progress Note: A&P Assessment and Plan (1) Lung nodule: Code(s): R91.1 - Solitary pulmonary nodule Status: Acute (2) Pneumothorax after biopsy: Code(s): J95.811 - Postprocedural pneumothorax Status: Acute (3) COPD (chronic obstructive pulmonary disease): Qualifiers: COPD type: unspecified COPD Qualified Code(s): J44.9 - Chronic obstructive pulmonary disease, unspecified Code(s): J44.9 - Chronic obstructive pulmonary disease, unspecified Status: Acute (4) Primary hypertension: Code(s): I10 - Essential (primary) hypertension Status: Acute Plan 73-year-old female with history of lung nodule, COPD, hypertension, CAD presents the hospital for a planned lung biopsy. During the biopsy she ended up with a pneumothorax with chest tube placement. The hospitalist team was consulted for admission to the hospital and medical management of patient by the radiologist. Patient complains of acute pain with the chest tube is difficulties coughing and deep breathing. Patient denies other symptoms. Patient had a unsuccessful CT-guided biopsy of 11 mm left upper lobe pulmonary nodule but developed a pneumothorax. A Joe catheter chest tube was placed. Lab work shows anemia with hemoglobin of 10.0, sodium of 132, BUN of 18, creatinine of 0.66, elevated AST of 53 ALT of 85. Continue chest tube. We will request consult General surgery for chest tube management. Currently on a water-seal drainage. Pain management COPD Hypertension Ischemic cardiomyopathy echo 05/24 40% EF Hyperlipidemia Coronary artery disease status post stents in the past Osteoporosis Lung nodule being followed by Pulmonary with recent increase in size of the left upper lobe nodule. PET scan 05/29/2024 with moderately increased FDG uptake with an enlarging now 11 mm left upper nodule concern for primary bronchogenic carcinoma. Indeterminate 5 mm left parotid nodule. DVT prophylaxis Code status full code Subjective Date/time seen: 06/24/24 12:45 Interval history: No overnight events. Pain is better. He still has air leak, remains on water-seal drainage. Review of Systems Review of Systems: All systems reviewed & are unremarkable except as noted in HPI and below Exam Narrative: General: well appearing, appears stated age. HEENT: normocephalic, atraumatic. Mucous membranes moist. Neck supple without JVD, lymphadenopathy, or bruit. Respiratory: clear to ascultation bilaterally. No rales/rhonic/wheezes. Left Chest tube with intermittent air leak 2 suction Cardiovascular: Regular rate and rhythm, normal S1-S2 upon ascultation. No murmurs, rubs, or clicks. PMI is nondisplaced, capillary refill less than 3 second. Abdomen: Soft, round, no pulsatile masses, nondistended and nontender. No rebound, no guarding. No CVA tenderness, no hepatosplenomegaly. Bowel sounds present to all four quadrants. No high pitch or tinkling sounds, resonant to percussion. Extremities: No cyanosis, clubbing, or edema present. Pulses are palpable 2/2. Active ROM to all four extremities. Neuro: Alert and orientated x 4. PERRLA. Cranial nerves 2-12 intact without focal deficit. Skin: Warm, dry, and intact, without rash, erythema, or lesion. Psych: pleasant, cooperative, normal speech, normal affect, no hallucinations, no dysarthia Objective Data Vital Signs Vital Signs: Vital Signs - 24 hr 06/23/24 16:00 06/23/24 16:00 06/23/24 20:00 Temperature 97.9 F 97.8 F Pulse Rate 81 92 Respiratory Rate 16 16 Blood Pressure 102/54 L 102/58 L Pulse Oximetry 100 100 98 Oxygen Delivery Room Air Fraction of Inspired Oxygen 06/23/24 20:00 06/23/24 20:54 06/24/24 00:00 Temperature 98.4 F Pulse Rate 93 97 88 Respiratory Rate 20 16 Blood Pressure 100/65 Pulse Oximetry 97 98 Oxygen Delivery Room Air Fraction of Inspired Oxygen 21 06/24/24 00:00 06/24/24 00:58 06/24/24 04:00 Temperature 98.6 F Pulse Rate 94 73 84 Respiratory Rate 20 18 Blood Pressure 105/65 Pulse Oximetry 99 Oxygen Delivery Fraction of Inspired Oxygen 06/24/24 04:00 06/24/24 08:00 06/24/24 08:11 Temperature 98.1 F Pulse Rate 94 90 Respiratory Rate 18 Blood Pressure 120/55 L Pulse Oximetry 98 95 Oxygen Delivery Room Air Fraction of Inspired Oxygen 21 06/24/24 08:11 Temperature Pulse Rate 70 Respiratory Rate 20 Blood Pressure Pulse Oximetry Oxygen Delivery Fraction of Inspired Oxygen Intake/Output Intake/Output: Intake & Output 06/21/24 06/22/24 06/23/24 06/24/24 23:59 23:59 23:59 23:59 Intake Total 540 1150 740 Output Total 400 Balance 540 750 740 Meds/Results Medications: Active Medications Generic Name Dose Route Start Last Admin Trade Name Freq PRN Reason Stop Dose Admin Acetaminophen 650 mg 06/22/24 13:45 Acetaminophen 325 Mg Tablet PO Q4H PRN Mild Pain (1-3) or Fever Hydrocodone Bitart/Acetaminophen 1 tab 06/22/24 13:45 06/24/24 09:36 Hydrocodone/Acetaminophen (*Crx) 5-325 Mg Tablet PO 1 tab Q4H PRN Administration Moderate Pain (4-6) Hydrocodone Bitart/Acetaminophen 1 tab 06/22/24 17:18 06/24/24 01:07 Hydrocodone/Acetaminophen (*Crx) 10-325 Mg Tablet PO 1 tab Q4H PRN Administration Pain Rated 7-10 Albuterol 1 puff 06/22/24 20:00 06/24/24 08:13 Albuterol Sulfate (*Sp) Aerosol 1 Puff INHALATION Not Given Q4HRT ALESSIO Artificial Tears 1 drop 06/24/24 07:40 Artificial Tears Ophth Soln 15 Ml Bottle EACH EYE QID PRN Dry Eye(s) Aspirin 81 mg 06/23/24 09:00 06/24/24 09:16 Aspirin 81 Mg Enteric Tablet PO 81 mg DAILY ALESSIO Administration Atorvastatin Calcium 80 mg 06/23/24 09:00 06/24/24 09:18 Atorvastatin 40 Mg Tablet PO 80 mg DAILY ALESSIO Administration Ezetimibe 10 mg 06/23/24 09:00 06/24/24 09:16 Ezetimibe 10 Mg Tablet PO 10 mg DAILY ALESSIO Administration Empagliflozin 10 mg 06/23/24 09:00 06/24/24 09:16 Empagliflozin 10 Mg Tablet PO 10 mg DAILY ALESSIO Administration Gabapentin 300 mg 06/22/24 22:00 06/24/24 05:42 Gabapentin 300 Mg Capsule PO 300 mg Q8H ALESSIO Administration Guaifenesin/Dextromethorphan 10 ml 06/22/24 21:00 06/24/24 09:16 Guaifenesin/Dextromethorphan 10 Ml Udc PO 10 ml Q4HR ALESSIO Administration Home Med 2 each 06/24/24 08:00 06/24/24 08:11 Breztri Inhaler 160mcg/9mcg/4mcg Per Inhalation*Use Home Supply BY MOUTH 07/24/24 07:59 2 each Q12HRT ALESSIO Administration Lidocaine 1 patch 06/22/24 21:10 06/24/24 09:16 Lidocaine 5% Patch TRANSDERM 1 patch DAILY ALESSIO Administration Methocarbamol 500 mg 06/22/24 22:00 06/24/24 05:36 Methocarbamol 500 Mg Tablet PO 500 mg Q8H ALESSIO Administration Ondansetron HCl 4 mg 06/22/24 13:47 Ondansetron Inj 4 Mg/2 Ml Vial IV PUSH Q4H PRN Nausea And Vomiting Pantoprazole Sodium 40 mg 06/23/24 09:00 06/24/24 09:16 Pantoprazole 40 Mg Tablet PO 40 mg QAM ALESSIO Administration Sacubitril/Valsartan 1 tab 06/22/24 21:00 06/24/24 09:16 Sacubitril/Valsartan 24-26 Mg Tablet PO 1 tab Q12HR ALESSIO Administration Spironolactone 25 mg 06/23/24 09:00 06/24/24 09:16 Spironolactone 25 Mg Tablet PO 25 mg DAILY ALESSIO Administration Radiology Results: ITS Impressions Chest Tube Insertion 06/22/24 16:54 IMPRESSION: 1. Unsuccessful attempt at CT-guided biopsy of an 11 mm left upper lobe pulmonary nodule complicated by development of a symptomatic left pneumothorax. 2. Successful CT-guided chest tube placement with resolution of the left pneumothorax. Lung Biopsy CT 06/22/24 16:54 IMPRESSION: 1. Unsuccessful attempt at CT-guided biopsy of an 11 mm left upper lobe pulmonary nodule complicated by development of a symptomatic left pneumothorax. 2. Successful CT-guided chest tube placement with resolution of the left pneumothorax. Chest X-Ray 06/24/24 07:49 Impression: 1: Stable small left apical pneumothorax. 2: Right basilar airspace disease, compatible with pneumonia. Labs Labs: Laboratory Results - last 24 hr 06/24/24 06:03 WBC 6.2 RBC 2.52 L Hgb 8.7 L Hct 27.9 L MCV 110.7 H MCH 34.5 H MCHC 31.2 L RDW 12.6 Plt Count 317 MPV 9.3 Immature Gran % (Auto) 1.0 H Neut % (Auto) 48.1 Lymph % (Auto) 32.6 [place] % (Auto) 16.2 H Eos % (Auto) 1.6 Baso % (Auto) 0.5 Lymph # (Auto) 2.03 [place] # (Auto) 1.0 H Eos # (Auto) 0.1 Baso # (Auto) 0.0 Abs Immat Gran (auto) 0.06 H Absolute Neuts (auto) 3.0 Absolute Nucleated RBC 0.000 Band Neutrophils % Not Reportable Nucleated RBC % 0.0 Platelet Estimate Adequate Hypochromasia 1+ Macrocytosis 1+ Schistocytes None seen Sodium 134 L Potassium 3.5 Chloride 102 Carbon Dioxide 25 Anion Gap 7 BUN 12 D Creatinine 0.66 L Estim Creat Clear Calc 57 Estimated GFR > 60 Glucose 129 H Calcium 8.2 L Magnesium 1.4 L Total Bilirubin 0.4 AST 33 ALT 46 H Alkaline Phosphatase 81 Total Protein 6.0 L Albumin 2.9 L
[2024-06-25] VITALS: BP 98/60; PULSE 84; PULSE 93; RESP 16; TEMP 37.5; O2SAT 97
[2024-06-25] MEDS: HYDROcodone/acetaminophen (*CRX) 5-325 MG TABLET 1 TAB PO ×3 (00:20→13:37)
[2024-06-25] MEDS: guaiFENesin/DEXTROMETHORPHAN 10 ML UDC PO ×4 (00:25→13:36)
[2024-06-25 04:00] VITALS: BP 123/69; PULSE 94; PULSE 99; RESP 16; TEMP 37.1; O2SAT 95
[2024-06-25] MEDS: ARTIFICIAL TEARS OPHTH SOLN 15 ML BOTTLE 1 DROP EACH EYE (04:28)
[2024-06-25] MEDS: methocarbamoL 500 MG TABLET PO ×2 (05:43→13:37)
[2024-06-25] MEDS: GABAPENTIN 300 MG CAPSULE PO ×2 (05:43→13:37)
[2024-06-25 08:00] VITALS: PULSE 90; O2SAT 97
[2024-06-25] MEDS: EMPAGLIFLOZIN 10 MG TABLET PO (08:31)
[2024-06-25] MEDS: ATORVASTATIN 40 MG TABLET 80 MG PO (08:31)
[2024-06-25] MEDS: ASPIRIN 81 MG ENTERIC TABLET PO (08:31)
[2024-06-25] MEDS: EZETIMIBE 10 MG TABLET PO (08:31)
[2024-06-25] MEDS: SACUBITRIL/VALSARTAN 24-26 MG TABLET 1 TAB PO (08:31)
[2024-06-25] MEDS: PANTOPRAZOLE 40 MG TABLET PO (08:31)
[2024-06-25] MEDS: SPIRONOLACTONE 25 MG TABLET PO (08:31)
[2024-06-25 10:16] VITALS: PULSE 89; RESP 20; O2SAT 97
[2024-06-25] MEDS: FORMOTEROL BY MOUTH (10:16)
[2024-06-25] MEDS: GLYCOPYRROLATE BY MOUTH (10:16)
[2024-06-25] MEDS: BUDESONIDE BY MOUTH (10:16)
[2024-06-25 12:00] VITALS: BP 115/50; PULSE 93; PULSE 98; RESP 18; TEMP 36.6; O2SAT 100
[2024-06-25] MEDS: LORazepam (*CRX) 0.5 MG TABLET PO (12:00)
[2024-06-25] MEDS: polyethylene glycoL 3350 17 GM POWD.PACK PO (12:00)
--- NOTE | 2024-06-25 13:18 | P.PNIM_ITS ---
Progress Note: A&P Assessment and Plan (1) Lung nodule: Code(s): R91.1 - Solitary pulmonary nodule Status: Acute (2) Pneumothorax after biopsy: Code(s): J95.811 - Postprocedural pneumothorax Status: Acute (3) COPD (chronic obstructive pulmonary disease): Qualifiers: COPD type: unspecified COPD Qualified Code(s): J44.9 - Chronic obstructive pulmonary disease, unspecified Code(s): J44.9 - Chronic obstructive pulmonary disease, unspecified Status: Acute (4) Primary hypertension: Code(s): I10 - Essential (primary) hypertension Status: Acute Plan 73-year-old female with history of lung nodule, COPD, hypertension, CAD presents the hospital for a planned lung biopsy. During the biopsy she ended up with a pneumothorax with chest tube placement. The hospitalist team was consulted for admission to the hospital and medical management of patient by the radiologist. Patient complains of acute pain with the chest tube is difficulties coughing and deep breathing. Patient denies other symptoms. Patient had a unsuccessful CT-guided biopsy of 11 mm left upper lobe pulmonary nodule but developed a pneumothorax. A Joe catheter chest tube was placed. Lab work shows anemia with hemoglobin of 10.0, sodium of 132, BUN of 18, creatinine of 0.66, elevated AST of 53 ALT of 85. Continue chest tube. We will request consult General surgery for chest tube management. Currently on a water-seal drainage. Pain management. Persistent leak. Need CT surgery. Discussed with [facility]. Accepted the transfer. COPD Hypertension Ischemic cardiomyopathy echo 05/24 40% EF Hyperlipidemia Coronary artery disease status post stents in the past Osteoporosis Lung nodule being followed by Pulmonary with recent increase in size of the left upper lobe nodule. PET scan 05/29/2024 with moderately increased FDG uptake with an enlarging now 11 mm left upper nodule concern for primary bronchogenic carcinoma. Indeterminate 5 mm left parotid nodule. DVT prophylaxis Code status full code Subjective Date/time seen: 06/25/24 13:18 Interval history: No overnight events. Pain is better. He still has air leak, remains on water- seal drainage. Review of Systems Review of Systems: All systems reviewed & are unremarkable except as noted in HPI and below Exam Narrative: General: well appearing, appears stated age. HEENT: normocephalic, atraumatic. Mucous membranes moist. Neck supple without JVD, lymphadenopathy, or bruit. Respiratory: clear to ascultation bilaterally. No rales/rhonic/wheezes. Left Chest tube with intermittent air leak 2 suction Cardiovascular: Regular rate and rhythm, normal S1-S2 upon ascultation. No murmurs, rubs, or clicks. PMI is nondisplaced, capillary refill less than 3 second. Abdomen: Soft, round, no pulsatile masses, nondistended and nontender. No rebound, no guarding. No CVA tenderness, no hepatosplenomegaly. Bowel sounds present to all four quadrants. No high pitch or tinkling sounds, resonant to percussion. Extremities: No cyanosis, clubbing, or edema present. Pulses are palpable 2/2. Active ROM to all four extremities. Neuro: Alert and orientated x 4. PERRLA. Cranial nerves 2-12 intact without focal deficit. Skin: Warm, dry, and intact, without rash, erythema, or lesion. Psych: pleasant, cooperative, normal speech, normal affect, no hallucinations, no dysarthia Objective Data Vital Signs Vital Signs: Vital Signs - 24 hr 06/24/24 16:00 06/24/24 16:00 06/24/24 19:42 Temperature 97.5 F L Pulse Rate 91 95 99 Respiratory Rate 18 20 Blood Pressure 101/51 L Pulse Oximetry 97 Oxygen Delivery Oxygen Flow Rate Fraction of Inspired Oxygen 06/24/24 20:00 06/24/24 20:00 06/24/24 20:35 Temperature 99.4 F Pulse Rate 120 H 97 Respiratory Rate 18 Blood Pressure 101/79 Pulse Oximetry 95 94 Oxygen Delivery Room Air Oxygen Flow Rate Fraction of Inspired Oxygen 21 06/25/24 00:00 06/25/24 00:00 06/25/24 04:00 Temperature 99.5 F Pulse Rate 93 84 94 Respiratory Rate 16 Blood Pressure 98/60 L Pulse Oximetry 97 Oxygen Delivery Oxygen Flow Rate Fraction of Inspired Oxygen 06/25/24 04:00 06/25/24 10:16 06/25/24 10:16 Temperature 98.7 F Pulse Rate 99 89 Respiratory Rate 16 20 Blood Pressure 123/69 Pulse Oximetry 95 97 Oxygen Delivery Nasal Cannula Oxygen Flow Rate 2 Fraction of Inspired Oxygen Intake/Output Intake/Output: Intake & Output 06/22/24 06/23/24 06/24/24 06/25/24 23:59 23:59 23:59 23:59 Intake Total 540 1150 1220 540 Output Total 400 Balance 607 513 6280 540 Meds/Results Medications: Active Medications Generic Name Dose Route Start Last Admin Trade Name Freq PRN Reason Stop Dose Admin Acetaminophen 650 mg 06/22/24 13:45 Acetaminophen 325 Mg Tablet PO Q4H PRN Mild Pain (1-3) or Fever Hydrocodone Bitart/Acetaminophen 1 tab 06/22/24 13:45 06/25/24 08:31 Hydrocodone/Acetaminophen (*Crx) 5-325 Mg Tablet PO 1 tab Q4H PRN Administration Moderate Pain (4-6) Hydrocodone Bitart/Acetaminophen 1 tab 06/22/24 17:18 06/24/24 19:43 Hydrocodone/Acetaminophen (*Crx) 10-325 Mg Tablet PO 1 tab Q4H PRN Administration Pain Rated 7-10 Albuterol 1 puff 06/24/24 13:11 Albuterol Sulfate (*Sp) Aerosol 1 Puff INHALATION Q4HRT PRN Wheezing Artificial Tears 1 drop 06/24/24 07:40 06/25/24 04:28 Artificial Tears Ophth Soln 15 Ml Bottle EACH EYE 1 drop QID PRN Administration Dry Eye(s) Aspirin 81 mg 06/23/24 09:00 06/25/24 08:31 Aspirin 81 Mg Enteric Tablet PO 81 mg DAILY ALESSIO Administration Atorvastatin Calcium 80 mg 06/23/24 09:00 06/25/24 08:31 Atorvastatin 40 Mg Tablet PO 80 mg DAILY ALESSIO Administration Ezetimibe 10 mg 06/23/24 09:00 06/25/24 08:31 Ezetimibe 10 Mg Tablet PO 10 mg DAILY ALESSIO Administration Empagliflozin 10 mg 06/23/24 09:00 06/25/24 08:31 Empagliflozin 10 Mg Tablet PO 10 mg DAILY ALESSIO Administration Gabapentin 300 mg 06/22/24 22:00 06/25/24 05:43 Gabapentin 300 Mg Capsule PO 300 mg Q8H ALESSIO Administration Guaifenesin/Dextromethorphan 10 ml 06/22/24 21:00 06/25/24 08:31 Guaifenesin/Dextromethorphan 10 Ml Udc PO 10 ml Q4HR ALESSIO Administration Home Med 2 each 06/24/24 08:00 06/25/24 10:16 Breztri Inhaler 160mcg/9mcg/4mcg Per Inhalation*Use Home Supply BY MOUTH 07/24/24 07:59 2 each Q12HRT ALESSIO Administration Lidocaine 1 patch 06/25/24 21:00 Lidocaine 5% Patch TRANSDERM QHS ALESSIO Lorazepam 0.5 mg 06/25/24 11:04 06/25/24 12:00 Lorazepam (*Crx) 0.5 Mg Tablet PO 0.5 mg Q6H PRN Administration Anxiety Methocarbamol 500 mg 06/22/24 22:00 06/25/24 05:43 Methocarbamol 500 Mg Tablet PO 500 mg Q8H ALESSIO Administration Ondansetron HCl 4 mg 06/22/24 13:47 Ondansetron Inj 4 Mg/2 Ml Vial IV PUSH Q4H PRN Nausea And Vomiting Pantoprazole Sodium 40 mg 06/23/24 09:00 06/25/24 08:31 Pantoprazole 40 Mg Tablet PO 40 mg QAM ALESSIO Administration Polyethylene Glycol 17 gm 06/25/24 11:05 06/25/24 12:00 Polyethylene Glycol 3350 17 Gm Powd.Pack PO 17 gm QAM PRN Administration Constipation Sacubitril/Valsartan 1 tab 06/22/24 21:00 06/25/24 08:31 Sacubitril/Valsartan 24-26 Mg Tablet PO 1 tab Q12HR ALESSIO Administration Spironolactone 25 mg 06/23/24 09:00 06/25/24 08:31 Spironolactone 25 Mg Tablet PO 25 mg DAILY ALESSIO Administration Radiology Results: ITS Impressions Chest Tube Insertion 06/22/24 16:54 IMPRESSION: 1. Unsuccessful attempt at CT-guided biopsy of an 11 mm left upper lobe pulmonary nodule complicated by development of a symptomatic left pneumothorax. 2. Successful CT-guided chest tube placement with resolution of the left pneumothorax. Lung Biopsy CT 06/22/24 16:54 IMPRESSION: 1. Unsuccessful attempt at CT-guided biopsy of an 11 mm left upper lobe pulmonary nodule complicated by development of a symptomatic left pneumothorax. 2. Successful CT-guided chest tube placement with resolution of the left pneumothorax. Chest X-Ray 06/25/24 11:00 IMPRESSION: 1. Unchanged left chest tube positioned at the lateral right midlung zone with slight increase in size of a still small left apical pneumothorax and increase in amount of soft tissue gas at the lateral left chest wall. 2. Reticular opacities at the posterior right lower lung zone consistent with likely resolving pneumonia with improvement since CT dated 04/16/2024.
--- NOTE | 2024-06-25 13:57 | P.PNGS_ITS ---
Progress Note: A&P Assessment and Plan (1) Pneumothorax after biopsy: Code(s): J95.811 - Postprocedural pneumothorax Status: Acute Assessment and Plan: * Pneumothorax slightly larger on chest x-ray this morning and she has a persistent air leak * Would recommend transfer to a tertiary care facility for thoracic surgery evaluation (2) Lung nodule: Code(s): R91.1 - Solitary pulmonary nodule Status: Acute (3) Primary hypertension: Code(s): I10 - Essential (primary) hypertension Status: Acute (4) Tobacco abuse: Code(s): Z72.0 - Tobacco use Status: Acute (5) Ischemic cardiomyopathy: Code(s): I25.5 - Ischemic cardiomyopathy Status: Acute Plan I have discussed the patient's case and plan of care with Dr. Tam. Subjective Subjective Date/Time Seen: 06/25/24 13:57 Interval history: No acute issues overnight. Denies shortness of breath or chest pain. Reports left posterior upper back pain intermittently that is mild, but otherwise just complaints of the discomfort of the chest tube. Exam Const: General: comfortable and no acute distress Chest: Chest palpation & inspection: crepitus (left chest wall) Other: Left chest tube in place with dressing dry and intact. Air leak with cough or on expiration with deep breathing Resp: Effort & Inspection: able to speak in complete sentences and not labored Auscultation: diminished lung sounds on the left (slightly diminished compared to right) Objective Data Vital Signs Vital Signs: Vital Signs - 24 hr 06/24/24 16:00 06/24/24 16:00 06/24/24 19:42 Temperature 97.5 F L Pulse Rate 91 95 99 Respiratory Rate 18 20 Blood Pressure 101/51 L Pulse Oximetry 97 Oxygen Delivery Oxygen Flow Rate Fraction of Inspired Oxygen 06/24/24 20:00 06/24/24 20:00 06/24/24 20:35 Temperature 99.4 F Pulse Rate 120 H 97 Respiratory Rate 18 Blood Pressure 101/79 Pulse Oximetry 95 94 Oxygen Delivery Room Air Oxygen Flow Rate Fraction of Inspired Oxygen 06/25/24 00:00 06/25/24 00:00 06/25/24 04:00 Temperature 99.5 F Pulse Rate 93 84 94 Respiratory Rate 16 Blood Pressure 98/60 L Pulse Oximetry 97 Oxygen Delivery Oxygen Flow Rate Fraction of Inspired Oxygen 06/25/24 04:00 06/25/24 10:16 06/25/24 10:16 Temperature 98.7 F Pulse Rate 99 89 Respiratory Rate 16 20 Blood Pressure 123/69 Pulse Oximetry 95 97 Oxygen Delivery Nasal Cannula Oxygen Flow Rate 2 Fraction of Inspired Oxygen Intake/Output Intake/Output: Intake & Output 06/22/24 06/23/24 06/24/24 06/25/24 23:59 23:59 23:59 23:59 Intake Total 540 1150 1220 540 Output Total 400 Balance 665 646 3296 540 Meds/Results Medications: Active Medications Generic Name Dose Route Start Last Admin Trade Name Freq PRN Reason Stop Dose Admin Acetaminophen 650 mg 06/22/24 13:45 Acetaminophen 325 Mg Tablet PO Q4H PRN Mild Pain (1-3) or Fever Hydrocodone Bitart/Acetaminophen 1 tab 06/22/24 13:45 06/25/24 13:37 Hydrocodone/Acetaminophen (*Crx) 5-325 Mg Tablet PO 1 tab Q4H PRN Administration Moderate Pain (4-6) Hydrocodone Bitart/Acetaminophen 1 tab 06/22/24 17:18 06/24/24 19:43 Hydrocodone/Acetaminophen (*Crx) 10-325 Mg Tablet PO 1 tab Q4H PRN Administration Pain Rated 7-10 Albuterol 1 puff 06/24/24 13:11 Albuterol Sulfate (*Sp) Aerosol 1 Puff INHALATION Q4HRT PRN Wheezing Artificial Tears 1 drop 06/24/24 07:40 06/25/24 04:28 Artificial Tears Ophth Soln 15 Ml Bottle EACH EYE 1 drop QID PRN Administration Dry Eye(s) Aspirin 81 mg 06/23/24 09:00 06/25/24 08:31 Aspirin 81 Mg Enteric Tablet PO 81 mg DAILY ALESSIO Administration Atorvastatin Calcium 80 mg 06/23/24 09:00 06/25/24 08:31 Atorvastatin 40 Mg Tablet PO 80 mg DAILY ALESSIO Administration Ezetimibe 10 mg 06/23/24 09:00 06/25/24 08:31 Ezetimibe 10 Mg Tablet PO 10 mg DAILY ALESISO Administration Empagliflozin 10 mg 06/23/24 09:00 06/25/24 08:31 Empagliflozin 10 Mg Tablet PO 10 mg DAILY ALESSIO Administration Gabapentin 300 mg 06/22/24 22:00 06/25/24 13:37 Gabapentin 300 Mg Capsule PO 300 mg Q8H ALESSIO Administration Guaifenesin/Dextromethorphan 10 ml 06/22/24 21:00 06/25/24 13:36 Guaifenesin/Dextromethorphan 10 Ml Udc PO 10 ml Q4HR ALESSIO Administration Home Med 2 each 06/24/24 08:00 06/25/24 10:16 Breztri Inhaler 160mcg/9mcg/4mcg Per Inhalation*Use Home Supply BY MOUTH 07/24/24 07:59 2 each Q12HRT ALESSIO Administration Lidocaine 1 patch 06/25/24 21:00 Lidocaine 5% Patch TRANSDERM QHS ALESSIO Lorazepam 0.5 mg 06/25/24 11:04 06/25/24 12:00 Lorazepam (*Crx) 0.5 Mg Tablet PO 0.5 mg Q6H PRN Administration Anxiety Methocarbamol 500 mg 06/22/24 22:00 06/25/24 13:37 Methocarbamol 500 Mg Tablet PO 500 mg Q8H ALESSIO Administration Ondansetron HCl 4 mg 06/22/24 13:47 Ondansetron Inj 4 Mg/2 Ml Vial IV PUSH Q4H PRN Nausea And Vomiting Pantoprazole Sodium 40 mg 06/23/24 09:00 06/25/24 08:31 Pantoprazole 40 Mg Tablet PO 40 mg QAM ALESSIO Administration Polyethylene Glycol 17 gm 06/25/24 11:05 06/25/24 12:00 Polyethylene Glycol 3350 17 Gm Powd.Pack PO 17 gm QAM PRN Administration Constipation Sacubitril/Valsartan 1 tab 06/22/24 21:00 06/25/24 08:31 Sacubitril/Valsartan 24-26 Mg Tablet PO 1 tab Q12HR ALESSIO Administration Spironolactone 25 mg 06/23/24 09:00 06/25/24 08:31 Spironolactone 25 Mg Tablet PO 25 mg DAILY ALESSIO Administration Radiology Results: ITS Impressions Chest Tube Insertion 06/22/24 16:54 IMPRESSION: 1. Unsuccessful attempt at CT-guided biopsy of an 11 mm left upper lobe pulmonary nodule complicated by development of a symptomatic left pneumothorax. 2. Successful CT-guided chest tube placement with resolution of the left pneumothorax. Lung Biopsy CT 06/22/24 16:54 IMPRESSION: 1. Unsuccessful attempt at CT-guided biopsy of an 11 mm left upper lobe pulmonary nodule complicated by development of a symptomatic left pneumothorax. 2. Successful CT-guided chest tube placement with resolution of the left pneumothorax. Chest X-Ray 06/25/24 11:00 IMPRESSION: 1. Unchanged left chest tube positioned at the lateral right midlung zone with slight increase in size of a still small left apical pneumothorax and increase in amount of soft tissue gas at the lateral left chest wall. 2. Reticular opacities at the posterior right lower lung zone consistent with likely resolving pneumonia with improvement since CT dated 04/16/2024.
[2024-06-25 14:37] VITALS: TEMP 36.6
--- NOTE | 2024-06-25 14:43 | PM.TDS ---
Transfer Discharge Sum: Prov Provider Date of admission: 06/23/24 09:05 Primary care physician: Nu Shirley MD Admitting clinician: Sierra Chapman MD Consults: 06/23/24 12:54 Consult to Physician Routine Comment: Spoke to 1308 06/23 [facility] [place]ing Provider: Srinath Tam call center support representative/MD group to consult: general surgery Reason for consultation: chest tube management Has provider been notified: Yes DS: Admitting Diagnosis Discharge Date 06/25/2024 Admitting Diagnosis Shortness of breath DS: Discharge Diagnosis Discharge Diagnosis (1) Lung nodule: Code(s): R91.1 - Solitary pulmonary nodule Status: Acute (2) Pneumothorax after biopsy: Code(s): J95.811 - Postprocedural pneumothorax Status: Acute (3) COPD (chronic obstructive pulmonary disease): Qualifiers: COPD type: unspecified COPD Qualified Code(s): J44.9 - Chronic obstructive pulmonary disease, unspecified Code(s): J44.9 - Chronic obstructive pulmonary disease, unspecified Status: Acute (4) Primary hypertension: Code(s): I10 - Essential (primary) hypertension Status: Acute Transfer Discharge Sum: Med Medications Active and Home Medications: Home Medications aspirin 81 mg tablet,delayed release 81 mg PO DAILY 02/19/19 [History Confirmed 06/19/24] atorvastatin 80 mg tablet 80 mg PO DAILY 03/20/20 [History Confirmed 06/19/24] clobetasol 0.05 % topical cream 1 applic topical DAILY PRN PSORIASIS 03/20/20 [History Confirmed 06/19/24] loratadine 10 mg capsule 10 mg PO DAILY PRN allergy symptoms 03/20/20 [History Confirmed 06/19/24] tacrolimus 0.1 % topical ointment 1 applic topical BID PRN PSORIASIS 03/20/20 [History Confirmed 06/19/24] triamcinolone acetonide 0.1 % topical cream 1 applic topical BID PRN PSORIASIS 03/20/20 [History Confirmed 06/19/24] ezetimibe 10 mg tablet (Zetia) 10 mg PO DAILY #30 tabs 12/17/20 [Rx Confirmed 06/19/24] Zoledronic acid See Rx Instructions .Route .COMPLEX #100 mL 02/03/23 [Rx Confirmed 06/19/24] empagliflozin 10 mg tablet (Jardiance) 10 mg PO DAILY 02/09/23 [History Confirmed 06/19/24] sacubitril 24 mg-valsartan 26 mg tablet (Entresto) 1 tablet PO BID 02/09/23 [History Confirmed 06/19/24] inhalational spacing device (Space Chamber) #1 ea 04/26/23 [Rx Confirmed 06/19/24] thiamine HCl (vitamin B1) 100 mg tablet 100 mg PO DAILY #100 tabs 06/16/23 [Rx Confirmed 06/19/24] budesonide 160 mcg-glycopyr 9 mcg-formot 4.8 mcg/actuation HFA inhaler ([employer] 66. comphere) See Rx Instructions .Route .COMPLEX #10.7 grams 11/03/23 [Rx Confirmed 06/19/24] ipratropium bromide 21 mcg (0.03 %) nasal spray See Rx Instructions .Route .COMPLEX #30 mL 02/15/24 [Rx Confirmed 06/19/24] omeprazole 20 mg tablet,delayed release 20 mg PO DAILY #90 tabs 06/04/24 [Rx Confirmed 06/19/24] albuterol sulfate 90 mcg/actuation aerosol inhaler 1 inh inhalation Q4H #8.5 grams 06/07/24 [Rx Confirmed 06/19/24] cholecalciferol (vitamin D3) 25 mcg (1,000 unit) capsule 1,000 unit PO DAILY 06/11/24 [History Confirmed 06/19/24] fluticasone propionate 50 mcg/actuation nasal spray,suspension 1 spray intranasal BID PRN nasal congestion 06/11/24 [History Confirmed 06/19/24] spironolactone 25 mg tablet 25 mg PO DAILY 06/11/24 [History Confirmed 06/19/24] Active Medications Acetaminophen (Acetaminophen 325 Mg Tablet) 650 mg PO Q4H PRN PRN Reason: Mild Pain (1-3) or Fever Hydrocodone Bitart/Acetaminophen (Hydrocodone/Acetaminophen (*Crx) 5-325 Mg Tablet) 1 tab PO Q4H PRN PRN Reason: Moderate Pain (4-6) Last Admin: 06/25/24 13:37 Dose: 1 tab Hydrocodone Bitart/Acetaminophen (Hydrocodone/Acetaminophen (*Crx) 10-325 Mg Tablet) 1 tab PO Q4H PRN PRN Reason: Pain Rated 7-10 Last Admin: 06/24/24 19:43 Dose: 1 tab Albuterol (Albuterol Sulfate (*Sp) Aerosol 1 Puff) 1 puff INHALATION Q4HRT PRN PRN Reason: Wheezing Artificial Tears (Artificial Tears Ophth Soln 15 Ml Bottle) 1 drop EACH EYE QID PRN PRN Reason: Dry Eye(s) Last Admin: 06/25/24 04:28 Dose: 1 drop Aspirin (Aspirin 81 Mg Enteric Tablet) 81 mg PO DAILY [facility] Last Admin: 06/25/24 08:31 Dose: 81 mg Atorvastatin Calcium (Atorvastatin 40 Mg Tablet) 80 mg PO DAILY [facility] Last Admin: 06/25/24 08:31 Dose: 80 mg Ezetimibe (Ezetimibe 10 Mg Tablet) 10 mg PO DAILY [facility] Last Admin: 06/25/24 08:31 Dose: 10 mg Empagliflozin (Empagliflozin 10 Mg Tablet) 10 mg PO DAILY [facility] Last Admin: 06/25/24 08:31 Dose: 10 mg Gabapentin (Gabapentin 300 Mg Capsule) 300 mg PO Q8H [facility] Last Admin: 06/25/24 13:37 Dose: 300 mg Guaifenesin/Dextromethorphan (Guaifenesin/Dextromethorphan 10 Ml Udc) 10 ml PO Q4HR [facility] Last Admin: 06/25/24 13:36 Dose: 10 ml Home Med (Breztri Inhaler 160mcg/9mcg/4mcg Per Inhalation*Use Home Supply) 2 each BY MOUTH Q12HRT [facility] Stop: 07/24/24 07:59 Last Admin: 06/25/24 10:16 Dose: 2 each Lidocaine (Lidocaine 5% Patch) 1 patch TRANSDERM QHS [facility] Lorazepam (Lorazepam (*Crx) 0.5 Mg Tablet) 0.5 mg PO Q6H PRN PRN Reason: Anxiety Last Admin: 06/25/24 12:00 Dose: 0.5 mg Methocarbamol (Methocarbamol 500 Mg Tablet) 500 mg PO Q8H [facility] Last Admin: 06/25/24 13:37 Dose: 500 mg Ondansetron HCl (Ondansetron Inj 4 Mg/2 Ml Vial) 4 mg IV PUSH Q4H PRN PRN Reason: Nausea And Vomiting Pantoprazole Sodium (Pantoprazole 40 Mg Tablet) 40 mg PO QAM [facility] Last Admin: 06/25/24 08:31 Dose: 40 mg Polyethylene Glycol (Polyethylene Glycol 3350 17 Gm Powd.Pack) 17 gm PO QAM PRN PRN Reason: Constipation Last Admin: 06/25/24 12:00 Dose: 17 gm Sacubitril/Valsartan (Sacubitril/Valsartan 24-26 Mg Tablet) 1 tab PO Q12HR [facility] Last Admin: 06/25/24 08:31 Dose: 1 tab Spironolactone (Spironolactone 25 Mg Tablet) 25 mg PO DAILY [facility] Last Admin: 06/25/24 08:31 Dose: 25 mg Transfer Discharge Sum: Hosp Hospital Course Hospital course: Oralia Garsia is a 73 year old female with history of lung nodule, COPD, hypertension, CAD presents the hospital for a planned lung biopsy. During the biopsy she ended up with a pneumothorax with chest tube placement. The hospitalist team was consulted for admission to the hospital and medical management of patient by the radiologist. Patient complains of acute pain with the chest tube is difficulties coughing and deep breathing. Patient denies other symptoms. Patient had a unsuccessful CT-guided biopsy of 11 mm left upper lobe pulmonary nodule but developed a pneumothorax. A Joe catheter chest tube was placed. Lab work shows anemia with hemoglobin of 10.0, sodium of 132, BUN of 18, creatinine of 0.66, elevated AST of 53 ALT of 85. Continue chest tube. Consulted General surgery for chest tube management. Currently on a water-seal drainage. Pain management. Patient continued with Persistent leak. Need CT surgery. Discussed with [facility]. Accepted the transfer for further management COPD Hypertension Ischemic cardiomyopathy echo 05/24 40% EF Hyperlipidemia Coronary artery disease status post stents in the past Osteoporosis Lung nodule being followed by Pulmonary with recent increase in size of the left upper lobe nodule. PET scan 05/29/2024 with moderately increased FDG uptake with an enlarging now 11 mm left upper nodule concern for primary bronchogenic carcinoma. Indeterminate 5 mm left parotid nodule. DVT prophylaxis Code status full code Time Spent with Patient Time attestation: Total time spent providing and/or coordinating transfer services: Exam Narrative: General: well appearing, appears stated age. HEENT: normocephalic, atraumatic. Mucous membranes moist. Neck supple without JVD, lymphadenopathy, or bruit. Respiratory: clear to ascultation bilaterally. No rales/rhonic/wheezes. Left Chest tube with intermittent air leak 2 suction Cardiovascular: Regular rate and rhythm, normal S1-S2 upon ascultation. No murmurs, rubs, or clicks. PMI is nondisplaced, capillary refill less than 3 second. Abdomen: Soft, round, no pulsatile masses, nondistended and nontender. No rebound, no guarding. No CVA tenderness, no hepatosplenomegaly. Bowel sounds present to all four quadrants. No high pitch or tinkling sounds, resonant to percussion. Extremities: No cyanosis, clubbing, or edema present. Pulses are palpable 2/2. Active ROM to all four extremities. Neuro: Alert and orientated x 4. PERRLA. Cranial nerves 2-12 intact without focal deficit. Skin: Warm, dry, and intact, without rash, erythema, or lesion. Psych: pleasant, cooperative, normal speech, normal affect, no hallucinations, no dysarthia DS: Data Imaging Radiologist's impression: ITS Impressions Chest X-Ray 06/22/24 14:57 IMPRESSION: 1. Resolution of prior echogenic left pneumothorax post left chest tube placement. 2. Chronic reticular opacities in the right lower lung zone which is demonstrated improvement on prior chest CT studies consistent with improving pneumonia. Chest Tube Insertion 06/22/24 16:54 IMPRESSION: 1. Unsuccessful attempt at CT-guided biopsy of an 11 mm left upper lobe pulmonary nodule complicated by development of a symptomatic left pneumothorax. 2. Successful CT-guided chest tube placement with resolution of the left pneumothorax. Lung Biopsy CT 06/22/24 16:54 IMPRESSION: 1. Unsuccessful attempt at CT-guided biopsy of an 11 mm left upper lobe pulmonary nodule complicated by development of a symptomatic left pneumothorax. 2. Successful CT-guided chest tube placement with resolution of the left pneumothorax. Chest X-Ray 06/23/24 07:32 IMPRESSION: 1. Tiny left apical pneumothorax with unchanged left chest tube in place. 2. Mild emphysema with unchanged reticular opacities at the right lower lung zone which could been improving on recent chest CT studies consistent with resolving pneumonia. Chest X-Ray 06/24/24 07:49 Impression: 1: Stable small left apical pneumothorax. 2: Right basilar airspace disease, compatible with pneumonia. Chest X-Ray 06/25/24 11:00 IMPRESSION: 1. Unchanged left chest tube positioned at the lateral right midlung zone with slight increase in size of a still small left apical pneumothorax and increase in amount of soft tissue gas at the lateral left chest wall. 2. Reticular opacities at the posterior right lower lung zone consistent with likely resolving pneumonia with improvement since CT dated 04/16/2024.
--- NOTE | 2024-06-25 14:45 | PC.NURSE ---
Gave report to Gavino [place] @ [facility] receiving patient to room 8373 @[id number]
== END 2024-06-25 17:10 | disposition home or self-care (01) | DRG 201 ==
LOC: ANH3MEDSUR 16:20
PROVIDERS: Nurse Practitioner Gerontology; Radiology Diagnostic Radiology; Admitting Provider Internal Medicine; PCP Family Medicine; Referring Provider Nurse Practitioner Family; Visit Provider Internal Medicine
PROC: BB24ZZZ Computerized Tomography (CT Scan) of Bilateral Lungs (ICD-10-PCS; CPT 32408; principal; 2024-06-22 11:00)
DX: J95.811 Postprocedural pneumothorax (principal); R91.1 Solitary pulmonary nodule; J44.9 Chronic obstructive pulmonary disease, unspecified; I10 Essential (primary) hypertension; I25.10 Atherosclerotic heart disease of native coronary artery without angina pectoris; I25.5 Ischemic cardiomyopathy; E78.5 Hyperlipidemia, unspecified; M81.0 Age-related osteoporosis without current pathological fracture; F17.210 Nicotine dependence, cigarettes, uncomplicated; Z95.5 Presence of coronary angioplasty implant and graft; Z79.82 Long term (current) use of aspirin
CPT/HCPCS: 32408; 32550; 36415; 71045; 71046; 75989; 80048; 80053; 83735; 85025; 85049; 85610; 94640; A9270; C1729; C1769; G0378; J3475; J7030

== ENCOUNTER 2024-07-15 13:44 | Inpatient (IN) | payer MEDICARE, SELFPAY ==
[2024-07-15] VITALS (39 sets, daily range): BP systolic 95–140; BP diastolic 53–93; PULSE 97–163; RESP 18–41; TEMP 36.9; O2SAT 90–100
--- NOTE | ~2024-07-15 | XR_ITS ---
XR chest 1V portable Ordering provider: Chris Mccracken MD History: 73 years Female with . SOB, hx PTX . Comparison: June 25, 2024 FINDINGS: MEDIASTINUM: The cardiac silhouette is not enlarged. LUNGS: No pneumothorax. Opacification the right lower lobe is seen. Right pleural effusion. OTHER: No free air under the diaphragm. IMPRESSION: Right lower lobe atelectasis versus pneumonia with pleural effusion. Reviewed, dictated and finalized at location A.
--- NOTE | ~2024-07-15 | XR_ITS ---
EXAMINATION: [id number] DATE: 07/16/2024 15:31 INDICATION: Pleural effusion TECHNIQUE: frontal view of the chest was obtained. COMPARISON: Chest radiograph dated 07/16/2024 at 5:27 AM FINDINGS: Improved aeration in the right mid and upper lung consistent with significant decrease in a now very small right pleural effusion with associated atelectasis. There is a lenticular opacity projecting ov er the junction of the right mid to lower lung consistent with residual small amount of loculated eff usion along the major fissure. Opacities in the right lower lung zone consistent with pneumonia. Calc ified right lower lobe nodule consistent with old granulomatous disease. Left lung appears clear with with small left upper lobe nodule seen on CT 2 small to be visualized on the plain radiographs. No p neumothorax or left-sided pleural effusion. Heart size is normal. IMPRESSION: 1. Decrease in size of a now very small right pleural effusion and a portion which is loculated along the right major fissure post thoracentesis. No pneumothorax. 2. Opacities in the right lower lung zone consistent with right lower lobe pneumonia. Reviewed, dictated and finalized at location A. IMPRESSION: 1. Decrease in size of a now very small right pleural effusion and a portion wh ich is loculated along the right major fissure post thoracentesis. No pneumotho rax. 2. Opacities in the right lower lung zone consistent with right lower lobe pneu monia.
--- NOTE | ~2024-07-15 | CT_ITS ---
CT chest abdomen pelvis w con, CT thoracic lumbar wo con Ordering provider: Chris Mccracken MD History: 73 years Female with . fall back,flank pain. abnormal chest xray . Comparison: April 16, 2024 Technique: CT chest with IV contrast. CT abdomen and pelvis CT abdomen and pelvis with IV and with or al contrast.Radiation reduction technique utilized. The dose-length product was 261.08 mGy-cm. 100 mL Omnipaque 350 was given IV. FINDINGS: CHEST: --VISUALIZED THORACIC INLET: Normal. --MEDIASTINUM: Aorta/coronary arteries: Mild atheromatous disease. Heart/other: The heart is not enlarged. Lymph nodes: No mediastinal or hilar adenopathy. --LUNGS: Right basilar atelectasis versus pneumonia with moderate right pleural effusion. Clinical co rrelation advised. Nodule in the left upper lobe anteriorly is again demonstrated unchanged from prev ious examination. No pulmonary masses. No pneumothorax. Calcified granuloma is seen in the right low er lobe. Pleural calcification also seen. --MUSCULOSKELETAL: Soft tissues: The superficial soft tissues are normal. Bones: Healing fracture is seen in the right fourth, fifth, sixth and seventh ribs. Age appropriate d egenerative changes of the spine. ABDOMEN/PELVIS: --MUSCULOSKELETAL: Bones: Age appropriate degenerative changes of the spine. No suspicious bony lytic or sclerotic lesio ns. Superficial soft tissues: The superficial soft tissues are normal. --UPPER ABDOMINAL ORGANS: Liver: Fat infiltration. Slightly prominent CBD. Gallbladder: Distended with no definite stones. Spleen: Normal. Stomach/duodenum: Slightly thickened wall of the stomach. Clinical correlation advised. Pancreas: Normal. Prominent pancreatic duct. Clinical correlation and follow-up advised. Pancreatic d ivisum is not excluded. Adrenals: Normal. Kidneys: Normal. --PELVIC ORGANS: The bladder is normal. No bladder stones. --BOWEL AND MESENTERY: Colon: No evidence of diverticulitis.. Appendix is not demonstrated. Small Bowel: Normal. No obstruction. Peritoneum/mesentery: No free air or free fluid. No mesenteric lymphadenopathy. --RETROPERITONEUM: Mild atheromatous disease of the abdominal aorta. No retroperitoneal lymphadenop athy. IMPRESSION: CHEST: 1. No pulmonary embolism or aortic dissection. 2. Right basilar atelectasis versus pneumonia with moderate right pleural effusion. Clinical correla tion advised. 3. Healing rib fractures in the right hemithorax. 4. Nodule in the left upper lobe unchanged from previous examination. ABDOMEN/PELVIS: 1. No evidence of appendicitis, diverticulitis or intestinal obstruction. 2. Fat infiltration of the liver. 3. Distended gallbladder with no definite stones. 4. Slightly prominent CBD measuring 1.1 cm. Prominent pancreatic duct also noted. Follow-up advised. CT chest abdomen pelvis w con, CT thoracic lumbar wo con Ordering provider: Chris Mccracken MD History: . fall back,flank pain. abnormal chest xray . Comparison: None. Technique: CT thoracic spine without contrast. Automated exposure control and iterative reconstructi on technique were employed. The dose-length product was 261.08 mGy-cm. FINDINGS: VERTEBRAE: Small bony fragment seen near to the spinous process of T4 which is most likely chronic. C linical evaluation for tenderness in the area advised. Otherwise, Normal height and alignment. No sub luxation or visible acute fracture. Kyphosis is seen. DISC SPACES: Well maintained. No significant stenosis as visualized. PARASPINOUS SOFT TISSUES: Normal. IMPRESSION: Small bony fragment near to the spinous process of T4 which is most likely chronic. Clinical correlat ion advised. Otherwise, No acute osseous abnormality of the thoracic spine. CT chest abdomen pelvis w con, CT thoracic lumbar wo con Ordering provider: Chris Mccracken MD History: 73 years Female with . fall back,flank pain. abnormal chest xray . Comparison: None. Technique: CT lumbar spine without contrast. Automated exposure control and iterative reconstruction technique were employed. The dose-length product was 261.08 mGy-cm. FINDINGS: VERTEBRAE: Normal height and alignment. No subluxation or visible acute fracture. Sclerotic areas see n in the right transverse process of L2. Follow-up advised. DISC SPACES: Well maintained. Degenerative disc disease seen at the level of L5-S1. Spinal canal stenosis seen at the level of L4-L5 with diffuse disc bulge and bilateral narrowing of t he foramina. Right nerve compression is highly suggestive. Diffuse disc bulge at the level of L3. PARASPINOUS SOFT TISSUES: Moderate atheromatous disease of the abdominal aorta. IMPRESSION: No acute osseous abnormalities. Moderate spinal canal stenosis at the level of L4-5 with bilateral narrowing of the foramina and high ly suggestive right nerve root compression. MRI evaluation advised. Reviewed, dictated and finalized at location A. IMPRESSION: CHEST: 1. No pulmonary embolism or aortic dissection. 2. Right basilar atelectasis versus pneumonia with moderate right pleural effu migdalia. Clinical correlation advised. 3. Healing rib fractures in the right hemithorax. 4. Nodule in the left upper lobe unchanged from previous examination. ABDOMEN/PELVIS: 1. No evidence of appendicitis, diverticulitis or intestinal obstruction. 2. Fat infiltration of the liver. 3. Distended gallbladder with no definite stones. 4. Slightly prominent CBD measuring 1.1 cm. Prominent pancreatic duct also not ed. Follow-up advised. CT chest abdomen pelvis w con, CT thoracic lumbar wo con Ordering provider: Chris Mccracken MD History: . fall back,flank pain. abnormal chest xray . Comparison: None. Technique: CT thoracic spine without contrast. Automated exposure control and iterative reconstruction technique were employed. The dose-length product was 2 61.08 mGy-cm. FINDINGS: VERTEBRAE: Small bony fragment seen near to the spinous process of T4 which is most likely chronic. Clinical evaluation for tenderness in the area advised. Ot herwise, Normal height and alignment. No subluxation or visible acute fracture. Kyphosis is seen. DISC SPACES: Well maintained. No significant stenosis as visualized. PARASPINOUS SOFT TISSUES: Normal. 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 Clinical correlation advised. Otherwise, No acute osseous abnormality of t he thoracic spine. CT chest abdomen pelvis w con, CT thoracic lumbar wo con Ordering provider: Chris Mccracken MD History: 73 years Female with . fall back,flank pain. abnormal chest xray . Comparison: None. Technique: CT lumbar spine without contrast. Automated exposure control and it erative reconstruction technique were employed. The dose-length product was 261 .08 mGy-cm. FINDINGS: VERTEBRAE: Normal height and alignment. No subluxation or visible acute fractur e. Sclerotic areas seen in the right transverse process of L2. Follow-up advise d. DISC SPACES: Well maintained. Degenerative disc disease seen at the level of L5 -S1. Spinal canal stenosis seen at the level of L4-L5 with diffuse disc bulge and bi lateral narrowing of the foramina. Right nerve compression is highly suggestive . Diffuse disc bulge at the level of L3. PARASPINOUS SOFT TISSUES: Moderate atheromatous disease of the abdominal aorta. IMPRESSION: No acute osseous abnormalities. Moderate spinal canal stenosis at the level of L4-5 with bilateral narrowing of the foramina and highly suggestive right nerve root compression. MRI evaluatio n advised. IMPRESSION: CHEST: 1. No pulmonary embolism or aortic dissection. 2. Right basilar atelectasis versus pneumonia with moderate right pleural effu migdalia. Clinical correlation advised. 3. Healing rib fractures in the right hemithorax. 4. Nodule in the left upper lobe unchanged from previous examination. ABDOMEN/PELVIS: 1. No evidence of appendicitis, diverticulitis or intestinal obstruction. 2. Fat infiltration of the liver. 3. Distended gallbladder with no definite stones. 4. Slightly prominent CBD measuring 1.1 cm. Prominent pancreatic duct also not ed. Follow-up advised. CT chest abdomen pelvis w con, CT thoracic lumbar wo con Ordering provider: Chris Mccracken MD History: . fall back,flank pain. abnormal chest xray . Comparison: None. Technique: CT thoracic spine without contrast. Automated exposure control and iterative reconstruction technique were employed. The dose-length product was 2 61.08 mGy-cm. FINDINGS: VERTEBRAE: Small bony fragment seen near to the spinous process of T4 which is most likely chronic. Clinical evaluation for tenderness in the area advised. Ot herwise, Normal height and alignment. No subluxation or visible acute fracture. Kyphosis is seen. DISC SPACES: Well maintained. No significant stenosis as visualized. PARASPINOUS SOFT TISSUES: Normal. 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 Clinical correlation advised. Otherwise, No acute osseous abnormality of t he thoracic spine. CT chest abdomen pelvis w con, CT thoracic lumbar wo con Ordering provider: Chris Mccracken MD History: 73 years Female with . fall back,flank pain. abnormal chest xray . Comparison: None. Technique: CT lumbar spine without contrast. Automated exposure control and it erative reconstruction technique were employed. The dose-length product was 261 .08 mGy-cm. FINDINGS: VERTEBRAE: Normal height and alignment. No subluxation or visible acute fractur e. Sclerotic areas seen in the right transverse process of L2. Follow-up advise d. DISC SPACES: Well maintained. Degenerative disc disease seen at the level of L5 -S1. Spinal canal stenosis seen at the level of L4-L5 with diffuse disc bulge and bi lateral narrowing of the foramina. Right nerve compression is highly suggestive . Diffuse disc bulge at the level of L3. PARASPINOUS SOFT TISSUES: Moderate atheromatous disease of the abdominal aorta.
--- NOTE | ~2024-07-15 | XR_ITS ---
Portable chest x-ray Comparison: 07/15/2024 Clinical History: Pleural effusion, pneumonia Findings: There is extensive haziness/consolidation of the right lung. Left lung clear. Cardiomedia stinal silhouette is stable. Bones and soft tissues are unremarkable. Impression: Suspected layering right pleural effusion with extensive right lung airspace disease. Correlate for r ight-sided pneumonia. Left lung clear. Reviewed, dictated and finalized at location M. Impression: Suspected layering right pleural effusion with extensive right lung airspace di sease. Correlate for right-sided pneumonia. Left lung clear.
--- NOTE | ~2024-07-15 | US_ITS ---
EXAMINATION: US thoracentesis DATE: 07/16/2024 15:33 INDICATION: Right pleural effusion TECHNIQUE: The procedure and its risks and benefits were discussed with the patient. Potential risks discussed included bleeding, infection, and pneumothorax. The patient understood the risks and agreed to proceed. The skin was prepped and draped in sterile fashion. 1% lidocaine was used for local anes thesia. Under ultrasound guidance, a 5 Fr catheter with trochar was advanced into the right pleural e ffusion. Fluid was aspirated. The catheter was removed, and a dressing was applied. There were no imm ediate complications. FINDINGS: Ultrasound images demonstrate a small complex right pleural effusion with multiple internal septation s and the catheter within the fluid. IMPRESSION: 1. Successful ultrasound-guided thoracentesis yielding 600 mL of cloudy straw-colored fluid. Reviewed, dictated and finalized at location A. IMPRESSION: 1. Successful ultrasound-guided thoracentesis yielding 600 mL of cloudy straw- colored fluid.
--- NOTE | ~2024-07-15 | XR_ITS ---
EXAMINATION: XR chest 1V portable DATE: 07/17/2024 08:44 INDICATION: Right pleural effusion TECHNIQUE: frontal view of the chest was obtained. COMPARISON: Chest radiograph dated 07/16/2024 FINDINGS: Again seen is a lenticular opacity at the junction of the lateral right mid and lower lung zones like ly representing small effusion loculated along the fissures. Additional small pleural effusion at the right lung base with blunting at the costophrenic angle. Mild interstitial and airspace opacity righ t lower lung zone with appearance on prior CT consistent with pneumonia. No pneumothorax or left-side d pleural effusion. Calcified nodule at the right lung base calcified right hilar and mediastinal lym ph nodes consistent with old granulomatous disease. Heart size is normal. IMPRESSION: 1. Right lower lobe pneumonia with small right pleural effusion a portion which remains loculated manuel ng the major fissure. Reviewed, dictated and finalized at location A. IMPRESSION: 1. Right lower lobe pneumonia with small right pleural effusion a portion which remains loculated along the major fissure.
--- NOTE | 2024-07-15 13:45 | ECG_ITS ---
Test Date: 2024-07-15 13:49:12 Measurements Intervals [place] Rate: 146 P: 0 LA: 0 QRS: -63 QRSD: 137 T: 89 QT: 318 QTc: 496 Interpretive Statements ATRIAL FIBRILLATION WITH RAPID VENTRICULAR RESPONSE LEFT AXIS DEVIATION [QRS AXIS < -30] INTRAVENTRICULAR CONDUCTION DELAY [130+ ms QRS DURATION] POSSIBLE ANTERIOR MYOCARDIAL INFARCTION , OF INDETERMINATE AGE [30 ms Q WAVE IN V3/V4, OR R < 0.2 mV IN V4] No previous ECG available for comparison Electronically Signed On 07-17-2024 14:07:32 CDT by Kortney Farley M.D.
[2024-07-15 14:01] LABS: Basophils Absolute Auto 0.1 K/mm3 (0.0-0.1); Basophils Percent Auto 0.4 % (0.2-1.2); Eosinophils Absolute Auto 0.2 K/mm3 (0-0.3); Eosinophils Percent Auto 0.9 % (0-4.4); Hematocrit 32.7 % (37.0-47.0); Hemoglobin 10.3 g/dL (12.0-15.0); Immature Granulocyte Absolute 0.11 K/mm3 (0.00-0.031); Immature Granulocyte Percent A 0.6 % (0-0.5); Lymphocytes Percent Auto 6.7 % (18.3-44.2); Mean Corpuscular HGB Conc 31.5 g/dl (32-36); Mean Corpuscular Hemoglobin 32.4 pg (26-34); Mean Corpuscular Volume 102.8 fl (80-100); Mean Platelet Volume 9.3 fl (7.4-10.4); Monocytes Absolute Auto 1.2 K/mm3 (0.1-0.6); Monocytes Percent Auto 6.4 % (2.6-8.5); Neutrophils Absolute Auto 16.5 K/mm3 (1.3-6.7); Platelet Count Result 707 k/mm3 (150-375); Red Blood Count 3.18 M/mm3 (4.2-5.4); Red Cell Distribution Width 13.4 % (11.5-14.5); White Blood Count 19.4 K/mm3 (4.5-10.0)
[2024-07-15 14:11] LABS: Alanine Aminotransferase 17 U/L (6-35); Albumin Level 2.9 g/dL (3.5-5.1); Alkaline Phosphatase 88 U/L (38-126); Anion Gap 10 mmol/L (4-12); Aspartate Amino Transferase 22 U/L (14-36); Bilirubin,Total 1.5 mg/dL (0.2-1.3); Blood Urea Nitrogen 10 mg/dL (7-17); Calcium 8.3 mg/dL (8.4-10.2); Carbon Dioxide 26 mmol/L (22-30); Chloride 99 mmol/L (98-107); Estimated CRCL calculation 85 ml/min; Estimated Glomerular Filt Rate > 60; Glucose 77 mg/dL (65-110); Potassium 3.2 mmol/L (3.4-5.0); Sodium 135 mmol/L (137-145)
--- OUTSIDE RECORDS SUMMARY | 2024-07-15 14:11 | XMS_ITS | Clinical Summary ---
Author Organization [facility] Address [address] [place] [address] Phone Care Team Providers Care Pictures Editor Name Role Phone Stacey Wyatt MD Primary [...] Take by mouth 2 times daily. Active [place]-3 Fatty Acids (OMEGA-3 FISH OIL PO) Take [...] age to complete this topic Insurance MED[facility] Care Teams Pictures Editor Relationship Specialty Start Date End Date Stacey Wyatt MD [address] [place] [address] PCP - General Family Medicine 11/24/17
--- OUTSIDE RECORDS SUMMARY | 2024-07-15 14:11 | XMS_ITS | Clinical Summary ---
Author Organization [facility] Address [address] [place] [address] Care Team Providers Care Tooling Manager Name Role Phone Nu Shirley MD Primary Care Provider [phone] Allergies Active Allergy Reactions Criticality Noted Date Comments Morphine Other (See Comments) ,Nausea and Vomiting Low 08/19/2014 sick sick Medications aspirin (ECOTRIN EC) 81 mg Tablet, Delayed Release (E.C.) Take 81 mg by mouth. Active Cholecalciferol, Vitamin D3, 10,000 unit Capsule Take 10,000 Units by mouth. Active omeprazole (PriLOSEC) 20 mg Tablet, Delayed Release (E.C.) Take by mouth. Active OTHER [place] Tail Mushroom 2 tablets daily . Active clobetasol (TEMOVATE) 0.05 % Cream APPLY TO AFFECTED AREA(S) OF RIGHT ARM AND LEFT LEG TWICE DAILY FOR 10 DAYS THEN EVERY OTHER DAY. 9 Active atorvastatin (LIPITOR) 40 mg tablet Take 1 tablet by mouth once daily 0 Active budesonide-glycop yr-formoterol (Breztri Aerosphere) 160-9-4.8 mcg/actuation HFA Aerosol Inhaler 1 Active ezetimibe (ZETIA) 10 mg tablet Take 1 Tablet by mouth daily. 2 Active empagliflozin (JARDIANCE) 10 mg tablet Take 10 mg by mouth daily. 3 Active fluticasone propionate (FLONASE) 50 mcg/spray [place], Suspension nasal inhaler Administer 2 Sprays in each nostril daily. 2 Active inhalational spacing device (Space Chamber) Spacer as directed 3 Active sacubitriL-valsar dickey (ENTRESTO) 49-51 mg Tablet Take 1 Tablet by mouth 2 times daily. 3 Active CYANOCOBALAMIN, VITAMIN B-12, ORAL Take by mouth. Activ e ferrous sulfate 325 mg (65 mg iron) tablet Take 1 Tablet (325 mg) by mouth daily. 30 Tablet 5 Active traMADol (ULTRAM) 50 mg tabletIndications :Postprocedural pneumothorax Take 1 Tablet (50 mg) by mouth every 6 hours as needed for Pain. 20 Tablet 5 Active Active Problems Patient Care Coordination No te Formatting of this note migh t be different from the original. Primary Care: Stacey Wyatt MD Referring Provider: Stacey Wyatt MD NO ADDRESS ON FILE Other: Dr. Claribel Castillo MD Problem Noted Date Diagnosed Date Left upper lobe pulmonary nodule 06/28/2024 Postprocedural pneumothorax 06/26/2024 Chronic systolic congestive heart failure 2024 Iron deficiency anemia 06/26/2024 Abnormality of left breast on screening mammogra [...] Encounters Date Type Department Care Team Description 07/14/2024 11:59 PM CDT Anesthesia Event [facility] Anesthesia [address] [place] [address] Chantale Anglin, TRAE 07/03/2024 External Device Data ST[facility] ABSTRACTION Provider, Abstract 07/03/2024 External Device Data STL ABSTRACTION Provider, Abstract 06/26/2024 External Device Data ST[facility] ABSTRACTION Provider, Abstract 06/26/2024 External Device Data STL ABSTRACTION Provider, Abstract 06/25/2024 6:13 PM CDT - 06/29/2024 12:20 PM CDT Hospital Encounter [facility] Oncology [address] [place] [address] Max Ennis MD Lyubenova-Ivano va, Mariya, MD Ye, Musi, MD Postprocedural pneumothorax Discharge Disposition: Home Health Care Svc 06/25/2024 Travel 05/23/2024 External Device Data STL ABSTRACTION Provider, [...] Date Smoking Tobacco: Some Days Cigarettes 0.2 41.3 Started: 06/16/1977; Last attempted to quit: 06/16/2017 Smokeless Tobacco: Never Tobacco Cessation:Ready to Q uit: Not Asked; Counseling Given: Not Answered Comments:occasional cigarette/ 7 cigarettes/week Alcohol Use Standard Drinks/Week Comments Yes 5 (1 standard drink = 0.6 oz pur e alcohol) Feeling Safe Answer Date Recorded Are you in a relationship wi th someone who hurts you emotionally and/or physically? No 06/26/2024 Food Insecurity Answer Date Recorded Patient needs follow up regardin 06/27/2024 Transportation Needs Answer Date Record ed Patient needs follow up regardin 06/27/2024 Housing Stability Answer Date Recorded Social/Environmental Concerns No concerns Utility Needs Answer Date Recorded Patient needs follow up regardin 06/27/2024 Comments No Sex and Gender Information Value Date Recorded Sex Assigned at Not on file Legal Sex Female 10:59 AM CDT Gender Identity Not on file Sexual Orientation Not on file Last Filed Vital Signs Vital Sign Reading Time Taken Comments Blood Pressure 124/63 06/29/2024 4:00 AM CDT Pulse 92 06/29/2024 4:00 AM CDT Temperature 36.8 C (98.2 F) 06/29/2024 4:00 AM CDT Respiratory Rate 17 06/29/2024 4:00 AM CDT Oxygen Saturation 98% 06/29/2024 4:00 AM CDT Inhaled Oxygen Concentration - - Weight 58.5 kg (129 lb) 06/26/2024 2:36 AM CDT Height 165.1 cm (5' 5 ) 06/26/2024 2:36 AM CDT Body Mass Index 21.47 06/26/2024 2:36 AM CDT Plan of Treatment Upcoming Encounters Date Type Department Care Team (Late st Contact Info) Description 07/18/2024 11:45 AM CDT Office Visit [facility] Cardiovas and Thor Surg at [facility] [address] [place] [address] Tray Cerna MD [address] [place] [address] 07/18/2024 1:00 PM CDT Hospital [facility] [address] [place] [id number] 08/14/2024 1:00 PM CDT Office Visit [facility] Oncology and Hematology - [place] [address] [place] [address] Suhail Luis MD [address] [place] [address] Health Maintenance Due Date Last [...] 08/05/2023, 01/11/2023, Additional history exists OSTEOPOROSIS SCREENING 01/12/2028 , 01/11/2023, 12/31/2021, Additional history exists Procedures Procedure Name Priority Date/Time Associated Diagnosis Comments XR CHEST PA OR AP 1 VW Pending Discharge 06/28/2024 11:50 AM CDT XR CHEST PA OR AP 1 VW Routine 06/28/2024 7:22 AM CDT TSH REFLEXIVE Routine 06/28/2024 5:27 AM CDT CBC WITH DIFFERENTIAL Routine 06/28/2024 5:27 AM CDT BASIC METABOLIC PANEL Routine 06/28/2024 5:27 AM CDT XR CHEST PA OR AP 1 VW Stat 06/27/2024 6:34 PM CDT CBC WITH DIFFERENTIAL Routine 06/27/2024 12:14 PM CDT BASIC METABOLIC PANEL Routine 06/27/2024 12:14 PM CDT XR CHEST PA OR AP 1 VW Stat 06/27/2024 8:45 AM CDT DIFFERENTIAL, MANUAL Routine 06/26/2024 11:09 AM CDT CBC WITH DIFFERENTIAL Routine 06/26/2024 11:09 AM CDT BASIC METABOLIC PANEL Routine 06/26/2024 11:09 AM CDT XR CHEST PA OR AP 1 VW Routine 06/26/2024 7:48 AM CDT VITAMIN B12 AND FOLATE Routine 06/25/2024 9:53 PM CDT IRON, TIBC, AND PERCENT SATURATION Routine 06/25/2024 6:52 PM CDT FERRITIN Routine 06/25/2024 6:52 PM CDT COMPREHENSIVE METABOLIC PANEL Stat 06/25/2024 6:52 PM CDT CBC WITH DIFFERENTIAL Stat 06/25/2024 6:52 PM CDT MAMMO DIAGNOSTIC UNI LEFT W OR WO CAD Routine 02/13/2024 2:08 PM DEPUTY BUILDING GUARD from Last 3 Months or Most Recently Relevant to Health Maintenance Results * XR CHEST PA OR AP 1 VW (06/28/2024 11:50 AM CDT) Only the most recent of5 resultswithin the time period is included. Anatomical Region Laterality Modality Chest Computed Radiogr aphy 06/28/2024 12:0 5 PM CDT Narrative 06/28/2024 12:14 PM CDT EXAM: PORTABLE AP CHEST DATE: 06/28/2024 11:50 AM HISTORY: Pneumothorax. See Reason for Exam FINDINGS: There is mild cardiomegaly. Mild right basilar infiltrates. There is no pleural effusion or pneumothorax The small caliber left chest tube seen on prior study of today has been removed. Again identified is extensive subcutaneous emphysema in the left chest. DICTATION LOCATION: Location - [facility] Procedure Note Alex Whipple MD - 06/28/2024 EXAM: PORTABLE AP CHEST DATE: 06/28/2024 11:50 AM HISTORY: Pneumothorax. See Reason for Exam FINDINGS: There is mild cardiomegaly. Mild right basilar infiltrates. There is no pleural effusion or pneumothorax The small caliber left chest tube seen on prior study of today has been removed. Again identified is extensive subcutaneous emphysema in the left chest. DICTATION LOCATION: Location [address] [place] [address] Lucila K Irma FURNITURE REPAIR TECHNICIAN DIAGNOSTIC IMAGING ORDERABL ES Final Result * TSH REFLEXIVE (06/28/2024 5:27 AM CDT) Pathologist [facility] TSH 0.99 0.27 - 4.20 uIU/mL 06/28/2024 11:15 AM CDT [employer] [facility] Blood Venipuncture / Unknown 06/28/2024 5:27 AM CDT 06/28/2024 6:21 AM CDT Cecily Rose MD CHEMISTRY ORDERABLES Final Resul t [employer] [facility]# [id number] [address] [facility] [place] [address] * (ABNORMAL) CBC WITH DIFFERENTIAL (06/28/2024 5:27 AM CDT) Only the most recent of4 resultswithin the time period is included. Pathologist [facility] WBC 9.7 4.0 - 9.8 K/uL 06/28/2024 6:38 AM CDT [employer] [facility] RBC 2.21(L) 3.90 - 4.90 M/uL 06/28/2024 6:38 AM CDT [employer] [facility] HEMOGLOBIN 7.6(L) 11.8 - 14.8 g/dL 06/28/2024 6:38 AM CDT [employer] [facility] HEMATOCRIT 23.3(L) 35.5 - 44.0 % 06/28/2024 6:38 AM CDT [employer] [facility] MCV 105.4(H) 82.0 - 99.0 fL 06/28/2024 6:38 AM CDT [employer] [facility] MCH 34.4(H) 27.2 - 32.6 pg 06/28/2024 6:38 AM CDT [employer] [facility] MCHC 32.6 31.5 - 35.5 g/dL 06/28/2024 6:38 AM CDT [employer] [facility] RDW 12.7 11.5 - 14.5 % 06/28/2024 6:38 AM [employer] [facility] RDW-STDEV 49.2(H) 37.1 - 48.7 fL 06/28/2024 6:38 AM [employer] [facility] PLATELETS 445(H) 140 - 350 K/uL 06/28/2024 6:38 AM [employer] [facility] - [facility] MPV 9.6 9.3 - 12.4 fL 06/28/2024 6:38 AM [employer] [facility] NEUTROPHILS 75 % 06/28/2024 6:38 AM [employer] [facility] - . [facility] LYMPHOCYTES 12 % 06/28/2024 6:38 AM [employer] [facility] - . YOBANY MONOCYTES 11 % 06/28/2024 6:38 AM [employer] [facility] - . [facility] EOSINOPHILS 1 % 06/28/2024 6:38 AM [employer] [facility] - . [facility] BASOPHILS 1 % 06/28/2024 6:38 AM [employer] [facility] - . [facility] IMMATURE GRANULOCYTES 1 % 06/28/2024 6:38 AM [employer] [facility] Comment:IG (Immature Granulo cyte) count includes Metamyelocytes, Myelocytes, and Promyelocytes NEUTROPHIL ABSOLUTE 7.27(H) 1.90 - 7.00 K/uL 06/28/2024 6:38 AM [employer] [facility] - . [facility] LYMPHOCYTE ABSOLUTE 1.13 0.70 - 4.50 K/uL 06/28/2024 6:38 AM [employer] [facility] - . [facility] MONOCYTE ABSOLUTE 1.10 0.10 - 1.30 K/uL 06/28/2024 6:38 AM [employer] [facility] - . [facility] EOSINOPHIL ABSOLUTE 0.13 0.00 - 0.70 K/uL 06/28/2024 6:38 AM [employer] [facility] - . [facility] BASOPHILS ABSOLUTE 0.06 0.00 - 0.20 K/uL 06/28/2024 6:38 AM [employer] [facility] - . [facility] IMMATURE GRANULOCYTES ABSOLUTE 0.05(H) 0.00 - 0.03 K/uL 06/28/2024 6:38 AM [employer] [facility] - [facility] Blood Venipuncture / Unknown 06/28/2024 5:27 AM CDT 06/28/2024 6:21 AM CDT us Iman Mckee MD HEMATOLOGY ORDERABLE S Final Result [facility] CLIA# [id number] [address] [facility] [place] [address] * (ABNORMAL) BASIC METABOLIC PANEL (06/28/2024 5:27 AM CDT) Only the most recent of3 resultswithin the time period is included. SODIUM 135(L) 136 - 145 mmol/L 06/28/2024 7:01 AM [facility] POTASSIUM 4.3 3.5 - 5.0 mmol/L 06/28/2024 7:01 AM [facility] CHLORIDE 102 98 - 107 mmol/L 06/28/2024 7:01 AM [facility] CO2 23 22 - 29 mmol/L 06/28/2024 7:01 AM [facility] CALCIUM 8.5(L) 8.6 - 10.2 mg/dL 06/28/2024 7:01 AM [facility] BUN 9 8 - 23 mg/dL 06/28/2024 7:01 AM [facility] CREATININE 0.64 0.51 - 0.95 mg/dL 06/28/2024 7:01 AM [facility] Comment:The GFR result is no t clinically significant on patients <18 or >70 years of age. GLUCOSE 80 74 - 99 mg/dL 06/28/2024 7:01 AM [facility] GFR >60 mL/min/1.7 3 sq meter 06/28/2024 7:01 AM [facility] Comment:eGFR calculated with 2020 CKD-EPI equation. Vegetarian diet, extremely high or low muscle mass, and may affect results. Cystatin C with Glomerular Filtration Rate is a suitable alternative for these patients. ANION GAP 10 8 - 16 mmol/L 06/28/2024 7:01 AM CDT [facility] Blood Venipuncture / Unknown 06/28/2024 5:27 AM CDT 06/28/2024 6:21 AM CDT Iman Mckee MD CHEMISTRY ORDERABLES Final Result Performing Organization Address [facility] Co de Phone Number [facility] CLIA# [id number] [address] [place] [address] * MANUAL DIFFERENTIAL (06/26/2024 11:09 AM CDT) PLATELET EST. Consistent w Count 06/26/2024 1:11 PM CDT [facility] ANISOCYTOSIS 1+ /hpf 06/26/2024 1:11 PM CDT [facility] MACROCYTES 1+ /hpf 06/26/2024 1:11 PM CDT [facility] HYPOCHROMIA 1+ /hpf 06/26/2024 1:11 PM CDT [facility] Blood Venipuncture / Unknown 06/26/2024 11:09 AM CDT 06/26/2024 11:27 AM CDT Iman Mckee MD HEMATOLOGY ORDERABLE S COM Final Result Performing Organization Address [facility] Co de Phone Number [facility] [employer] [facility] CLIA# [id number] [address] [place] [address] * (ABNORMAL) VITAMIN B12 AND FOLATE (06/25/2024 9:53 PM CDT) VITAMIN B12 >2,000(H) 232 - 1,245 pg/mL 06/25/2024 11:10 PM CDT [facility] Comment:It has been reported that between 5 to 10% of patients with values between 200 and 400 pg/mL may experience neuropsychiatric and hematologic abnormalities due to occult B12 deficiency. Less than 1% of patients with values above 400 pg/mL will have symptoms. FOLATE, SERUM 6.2 >4.5 ng/mL 06/25/2024 11:10 PM CDT [facility] Blood Venipuncture / Unknown 06/25/2024 9:53 PM CDT 06/25/2024 10:15 PM CDT Iman Mckee MD CHEMISTRY ORDERABLES Final Result [facility] CLIA# [id number] [address] [place] [address] * (ABNORMAL) IRON, TIBC, AND PERCENT SATURATION (06/25/2024 6:52 PM CDT) IRON 14(L) 37 - 145 ug/dL 06/25/2024 9:11 PM CDT [facility] TIBC 161(L) 250 - 450 ug/dL 06/25/2024 9:11 PM CDT [facility] IRON % SATURATION 9(L) 15 - 50 % 06/25/2024 9:11 PM CDT [facility] TRANSFERRIN 127(L) 200 - 360 mg/dL 06/25/2024 9:11 PM CDT [facility] Blood Venipuncture / Unknown 06/25/2024 6:52 PM CDT 06/25/2024 7:30 PM CDT Iman Mckee MD CHEMISTRY ORDERABLES Final Result [facility] CLIA# [id number] [address] [place], [place] [address] * (ABNORMAL) FERRITIN (06/25/2024 6:52 PM CDT) FERRITIN 282.0(H) 13.0 - 150.0 ng/mL 06/25/2024 9:11 PM CDT [facility] Blood Venipuncture / Unknown 06/25/2024 6:52 PM CDT 06/25/2024 7:30 PM CDT Iman Mckee MD CHEMISTRY ORDERABLES Final Result [facility] CLIA# [id number] [address] [facility] [place] [address] * (ABNORMAL) COMPREHENSIVE METABOLIC PANEL (06/25/2024 6:52 PM CDT) Pathologist [facility] SODIUM 136 136 - 145 mmol/L 06/25/2024 8:24 PM CDT [facility] POTASSIUM 3.6 3.5 - 5.0 mmol/L 06/25/2024 8:24 PM CDT [facility] CHLORIDE 100 98 - 107 mmol/L 06/25/2024 8:24 PM CDT [facility] CO2 25 22 - 29 mmol/L 06/25/2024 8:24 PM CDT [facility] CALCIUM 8.2(L) 8.6 - 10.2 mg/dL 06/25/2024 8:24 PM CDT [facility] BUN 11 8 - 23 mg/dL 06/25/2024 8:24 PM CDT [facility] CREATININE 0.76 0.51 - 0.95 mg/dL 06/25/2024 8:24 PM CDT [facility] Comment:The GFR result is no t clinically significant on patients <18 or >70 years of age. GLUCOSE 105(H) 74 - 99 mg/dL 06/25/2024 8:24 PM CDT [facility] TOTAL PROTEIN 5.3(L) 6.7 - 8.6 g/dL 06/25/2024 8:24 PM CDT [employer] [facility] - . YOBANY ALBUMIN 3.0(L) 3.5 - 5.2 g/dL 06/25/2024 8:24 PM [facility] BILIRUBIN TOTAL 0.2 0.2 - 1.1 mg/dL 06/25/2024 8:24 PM [facility] ALKALINE PHOSPHATASE 133(H) 35 - 104 U/L 06/25/2024 8:24 PM [facility] AST 33(H) <33 U/L 06/25/2024 8:24 PM [facility] ALT 42(H) <34 U/L 06/25/2024 8:24 PM [facility] GFR >60 mL/min/1.7 3 sq meter 06/25/2024 8:24 PM [facility] Comment:eGFR calculated with 2020 CKD-EPI equation. Vegetarian diet, extremely high or low muscle mass, and may affect results. Cystatin C with Glomerular Filtration Rate is a suitable alternative for these patients. ANION GAP 11 8 - 16 mmol/L 06/25/2024 8:24 PM [facility] Blood Venipuncture / Unknown 06/25/2024 6:52 PM CDT 06/25/2024 7:30 PM CDT Narrative [facility] - 06/25/2024 8:24 PM CDT Samples containing indocyanine green cause interferences on Total and/or Direct Bilirubin and must not be measured. Iman Mckee MD CHEMISTRY ORDERABLES Final Result [facility]# [id number] [address] [place] [address] * MAMMO DIAGNOSTIC UNI LEFT W OR WO CAD (02/13/2024 2:08 PM DEPUTY BUILDING GUARD) Anatomical Region Laterality Modality Breast Left Mammography Suhail Luis MD MAMMO ORDERABLES Final Result from Last 3 Months or Most Recently Relevant to Health Maintenance Insurance Advance Directives For more information, please contact: [phone] * Full Code (Latest Code Status on File) Date Activated Date Inactivated Comments 06/25/2024 8:28 PM 06/29/2024 3:15 PM Care Teams Tooling Manager Relationship Specialty Start Date End Date Nu Shirley MD [address] [place] [id number] PCP - General Family Practice 07/18/23
--- OUTSIDE RECORDS SUMMARY | 2024-07-15 14:11 | XMS_ITS ---
Author Organization [facility] [address] Address [address] [place] [address] Care Team Providers Care Research Environmental Engineer Name Role Phone Nu Shirley MD Primary Care Provider [phone] Active Problems Problem Noted Date Diagnosed Date COPD (chronic obstructive pulmonary disease) Atypical hyperplasia of left breast 11/28/2017 Lobular carcinoma in situ (LCIS) of left breast 11/28/2017 Abnormal ultrasound of breast 09/20/2017 Presence of stent in coronary artery 06/23/2017 Tobacco abuse 06/23/2017 Essential hypertension 06/23/2017 History of non-ST elevation myocardial infarctio n (NSTEMI) 06/23/2017 Coronary artery disease invo lving [place] coronary artery of [place] heart without angina pectoris 06/23/2017 Concussion with [...] consider Prolia. She should continue calcium of 0125-1448 mg per day through dietary intake or [...] this time. She should continue calcium of 7604-5024 mg per day through dietary intake or [...] has improved. She should continue calcium of 9262-6093 mg per day through dietary intake or supplements and vitamin D 2000 IU per day get IV Reclast again Assessment & Plan (11/23/2018 4:00 PM CDT): In summary, Ms. GARSIA has osteoporosis that is likely multifactorial secondary to tobacco use and family history of osteoporosis and advanced age. Her bone density has improved. She should continue calcium of 0455-1898 mg per day through dietary intake or supplements and vitamin D 2000 IU per day get IV Reclast again. Assessment & Plan (10/27/2017 12:06 PM CDT): In summary, Ms. GARSIA has osteoporosis that is likely multifactorial secondary to tobacco use and family history of osteoporosis and advanced age. She's being treated with calcium of 6313-8227 mg per day through dietary intake or [...]
--- OUTSIDE RECORDS SUMMARY | 2024-07-15 14:11 | XMS_ITS | Referral Summary ---
Author Organization [facility] [address] Address [address] [place] [address] Care Team Providers Care Marine Drafter Name Role Phone Nu Shirley MD Primary Care Provider [phone] Allergies Active Allergy Reactions Criticality Noted Date [...] NOSTRIL THREE TIMES DAILY 05/27/19 24 Active atorvastatin (LIPITOR) 80 mg tablet Take [...] twice daily 180 tablet 05/02/19 25 Active spironolactone (ALDACTONE) 25 mg tablet Take 1 tablet (25 mg total) by mouth daily 30 tablet 11 07/03/19 25 Active spironolactone (ALDACTONE) 25 mg tablet Take 1 tablet (25 mg total) by mouth daily 30 tablet 11 06/01/19 24 025 Discontinued Active Problems Problem Noted Date [...] consider Prolia. She should continue calcium of 5878-5507 mg per day through dietary intake or [...] this time. She should continue calcium of 0957-5107 mg per day through dietary intake or [...] has improved. She should continue calcium of 1554-9987 mg per day through dietary intake or supplements and vitamin D 2000 IU per day get IV Reclast again Assessment & Plan (11/23/2018 4:00 PM CDT): In summary, Ms. GARSIA has osteoporosis that is likely multifactorial secondary to tobacco use and family history of osteoporosis and advanced age. Her bone density has improved. She should continue calcium of 4040-2858 mg per day through dietary intake or supplements and vitamin D 2000 IU per day get IV Reclast again. Assessment & Plan (10/27/2017 12:06 PM CDT): In summary, Ms. GARSIA has osteoporosis that is likely multifactorial secondary to tobacco use and family history of osteoporosis and advanced age. She's being treated with calcium of 9382-3705 mg per day through dietary intake or [...] on file Legal Sex Female 4:14 AM FORM DRAFTER Gender Identity Female 08/11/2017 1:49 PM CDT Sexual Orientation Not on file Last Filed Vital Signs Vital Sign Reading Time Taken Comments Blood Pressure 127/65 03/10/2024 10:49 AM FORM DRAFTER Pulse 94 03/10/2024 10:49 AM FORM DRAFTER Temperature 36.7 C (98.1 F) 03/10/2024 10:49 AM FORM DRAFTER Respiratory Rate 20 03/10/2024 10:49 AM FORM DRAFTER Oxygen Saturation 97% 03/10/2024 10:49 AM FORM DRAFTER Inhaled Oxygen Concentration - - Weight 60.8 kg (134 lb 1.6 oz) 03/10/2024 10:49 AM FORM DRAFTER Height 165.1 cm (5' 5 ) 03/10/2024 10:49 AM FORM DRAFTER Body Mass Index 22.32 03/10/2024 10:49 AM FORM DRAFTER Plan of Treatment Not on file Medical Devices Implanted Type Area Law Writer Device Identifier Shelf Expiration Date Model / Serial / Lot [employer] Device Closure Vascade Od5 Fr Femoral Artery [id number] - [id number] Implanted:Qty: 1 on 03/31/2023 by Miguel Mccloud MD at [facility] [employer] 12/02/2024 [id number] / / [id number] Procedures Procedure Name Priority Date/Time Associated Diagnosis Comments HEPATITIS PANEL, ACUTE Routine 07/05/2023 9:55 AM CDT Acid phosphatase elevated Fatigue Hypopotassemia DEXA TBS AXIAL SKELETON BONE DENSITY 1 OR MORE SITES Schedule Routine, Read Routine (OP Routine) 01/11/2023 10:31 AM FORM DRAFTER Age-related osteoporosis without current pathological fracture from [...] 19. Hep B core IgM Nonreactive Nonreactive [facility] Comment: Interpretive Data If HepB Core IgM Ab is reported as Equivocal, a new sample should be drawn in two weeks for testing. Current interpretive data was last revised on 19. Hep C Ab Nonreactive Nonreactive [facility] Comment: Interpretive Data Nonreactive: Antibodies to HCV [...] on 2019. HepBsAg Nonreactive Nonreactive [facility] Blood Venous blood specimen / Unknown 07/05/2023 9:55 AM CDT 07/05/2023 3:12 PM CDT Narrative [facility] - 07/05/2023 5:04 PM CDT Fax results to Dr Nu Shirley [phone] Nu Shirley MD LAB MICROBIOLOGY - [facility] Final Result [facility] [address] Department [place] [address] * Dexa TBS Axial Skeleton Bone Density 1 or more sites (01/11/2023 10:31 AM FORM DRAFTER) Anatomical Region Laterality Modality Wrist, Body N/A Radiographic Batsheva ging Narrative 01/11/2023 4:22 PM FORM DRAFTER Patient Name: Oralia Garsia Date of : 1950 Date of scan: 01/11/2023 Bone mineral density was performed on a [employer]id Discovery Densitometer. Based on machine cross-calibration and [...] by the International Society of Clinical Densitometry. [id number] Salud John MD IMG DXA PROCEDURES Final Re sult from Last 3 Months or Most Recently Relevant to Health Maintenance Insurance [facility] MEDICARE [employer] MEDICARE A[employer] MEDICARE Care Teams Marine Drafter Relationship Specialty Start Date End Date Nu Shirley MD PCP - General Family Medicine 01/14/21
--- OUTSIDE RECORDS SUMMARY | 2024-07-15 14:11 | XMS_ITS | Clinical Summary ---
Author Organization Unknown Care Team Providers Care Media Services Specialist Name Role Phone DAVE MUJICA [id number] INTERSTATE, SAIDA Unavailab le Unavailable KURT RN, GAVI Unavailable Unavailbharti BREWER PT, JAYASHREE Unavailable Unavailable PATRICIA OT, VINCENT Unavailable Unavailable KYA REYESN, LATOSHA Unavailable Unavailable Payers Payer Name Policy Type Policy Number Effective Date Expira tion Date [facility] [id number] Problems Condition Name Condition Details Condition Category Status Onset Date Resolution Date Last Treatment Date Treating Clinician Comments PNEUMOTHORAX , UNSPECIFIED Active 06-29 00:00: 00 Allergies, Adverse Reactions, Alerts Allergy Name Allergy Type Status Severity Reaction(s) Onset Date Inactive Date Treating Clinician Comments MORPHINE Propensity to adverse reactions Active 2024-07 10:58:1 0 Vital Signs Vital Name Observation Time Observation Value Commen ts Temperature 2024-07-12 09:17:00.000 99.1 [degF] Temperature 2024-07-12 08:47:00.000 99.1 [degF] Temperature 2024-07-11 11:23:00.000 97.2 [degF] BMI (%) 2024-07-11 11:10:38.000 21 kg/m2 Height 2024-07-11 11:10:33.000 65 [in_us] Pulse 2024-07-12 09:17:00.000 100 /min Pulse 2024-07-12 08:47:00.000 100 /min Pulse 2024-07-11 11:23:00.000 97 /min O2 Saturation (%) 2024-07-12 09:17:00.000 96 % O2 Saturation (%) 2024-07-12 08:47:00.000 94 % O2 Saturation (%) 2024-07-11 11:23:00.000 97 % Respirations 2024-07-12 09:17:00.000 18 /min Respirations 2024-07-12 08:47:00.000 18 /min Respirations 2024-07-11 11:23:00.000 18 /min Weight (lbs) 2024-07-11 11:10:38.000 127 [lb_av] Systolic Blood Pressure 2024-07-12 09:17:00.000 108 mm [Hg] Systolic Blood Pressure 2024-07-12 08:47:00.000 108 mm [Hg] Systolic Blood Pressure 2024-07-11 11:23:00.000 124 mm [Hg] Diastolic Blood Pressure 2024-07-12 09:17:00.000 58 mm [Hg] Diastolic Blood Pressure 2024-07-12 08:47:00.000 58 mm [Hg] Diastolic Blood Pressure 2024-07-11 11:23:00.000 76 mm [Hg] Plan of Treatment Planned Activity Planned Date Details Comments Future Scheduled Test RN TO OBSE RVE, ASSESS, EVALUATE, AND DEVELOP AN INDIVIDUALIZED PLAN OF CARE. AGENCY MAY ACCEPT ORDERS FROM CONSULTING PHYSICIANS . RN TO OBSERVE AND ASSESS, LICENSED FUNERAL DIRECTOR/QUICK SKETCH ARTIST TO OBSERVE FOR RISK FOR FALLS AND INSTRUCT IN FALL PREVENTION, HOME SAFETY, MEDICATION MANAGEMENT, INFECTION PREVENTION, AND NUTRITION MANAGEMENT. RN/LICENSED FUNERAL DIRECTOR/QUICK SKETCH ARTIST NURSE MAY PERFORM O2 SATURATION LEVEL ON ADMISSION AND PRN FOR EVERY VISIT FOR RN TO ASSESS/LICENSED FUNERAL DIRECTOR TO OBSERVE PATIENT, WITH NOTIFICATION TO THE PHYSICIAN IF SATURATION IS 90% IN THE ABSENCE OF MORE SPECIFIC PARAMETERS FROM THE PHYSICIAN. AGENCY MAY PERFORM A RESUMPTION OF CARE VISIT FOLLOWING ANY HOSPITAL ADMISSION. RN/LICENSED FUNERAL DIRECTOR/QUICK SKETCH ARTIST TO MONITOR CO-MORBID CONDITIONS LISTED ON THE PLAN OF CARE AND ANY NEW CONDITIONS THAT PRESENT THEMSELVES DURING THIS EPISODE TO IDENTIFY CHANGES AND INTERVENE TO MINIMIZE COMPLICATIONS. [code = RN TO OBSERVE, ASSESS, EVALUATE, AND DEVELOP AN INDIVIDUALIZED PLAN OF CARE. AGENCY MAY ACCEPT ORDERS FROM CONSULTING PHYSICIANS . RN TO OBSERVE AND ASSESS, LICENSED FUNERAL DIRECTOR/QUICK SKETCH ARTIST TO OBSERVE FOR RISK FOR FALLS AND INSTRUCT IN FALL PREVENTION, HOME SAFETY, MEDICATION MANAGEMENT, INFECTION PREVENTION, AND NUTRITION MANAGEMENT. RN/LICENSED FUNERAL DIRECTOR/QUICK SKETCH ARTIST NURSE MAY PERFORM O2 SATURATION LEVEL ON ADMISSION AND PRN FOR EVERY VISIT FOR RN TO ASSESS/LICENSED FUNERAL DIRECTOR TO OBSERVE PATIENT, WITH NOTIFICATION TO THE PHYSICIAN IF SATURATION IS 90% IN THE ABSENCE OF MORE SPECIFIC PARAMETERS FROM THE PHYSICIAN. AGENCY MAY PERFORM A RESUMPTION OF CARE VISIT FOLLOWING ANY HOSPITAL ADMISSION. RN/LICENSED FUNERAL DIRECTOR/QUICK SKETCH ARTIST TO MONITOR CO-MORBID CONDITIONS LISTED ON THE PLAN OF CARE AND ANY NEW CONDITIONS THAT PRESENT THEMSELVES DURING THIS EPISODE TO IDENTIFY CHANGES AND INTERVENE TO MINIMIZE COMPLICATIONS.] Future Scheduled Test COPD MONIT ORING RN/QUICK SKETCH ARTIST/LICENSED FUNERAL DIRECTOR TO MONITOR FOR SIGNS AND SYMPTOMS OF COPD EXACERBATION, MONITOR FOR ADHERENCE TO MEDICATION AND COPD MANAGEMENT. [code = COPD MONITORING RN/QUICK SKETCH ARTIST/LICENSED FUNERAL DIRECTOR TO MONITOR FOR SIGNS AND SYMPTOMS OF COPD EXACERBATION, MONITOR FOR ADHERENCE TO MEDICATION AND COPD MANAGEMENT.] Future Scheduled Test RISK FOR H OSPITALIZATION; RN TO ASSESS/TEACH, QUICK SKETCH ARTIST/LICENSED FUNERAL DIRECTOR TO OBSERVE/TEACH PATIENT/CAREGIVER ON RISK FOR HOSPITALIZATION/EMERGENCY ROOM VISITS, TEACH SIGNS AND SYMPTOMS THAT PUT PATIENT AT RISK, WHEN TO NOTIFY NURSE/PHYSICIAN OF COMPLICATIONS/DECLINE, AND WHEN TO CALL 911. [code = RISK FOR HOSPITALIZATION; RN TO ASSESS/TEACH, QUICK SKETCH ARTIST/LICENSED FUNERAL DIRECTOR TO OBSERVE/TEACH PATIENT/CAREGIVER ON RISK FOR HOSPITALIZATION/EMERGENCY ROOM VISITS, TEACH SIGNS AND SYMPTOMS THAT PUT PATIENT AT RISK, WHEN TO NOTIFY NURSE/PHYSICIAN OF COMPLICATIONS/DECLINE, AND WHEN TO CALL 911.] Future Scheduled Test CARDIOVASC ULAR SYSTEM; RN TO ASSESS/TEACH, LICENSED FUNERAL DIRECTOR/QUICK SKETCH ARTIST TO OBSERVE/TEACH RELATED TO ALTERED CARDIOVASCULAR STATUS TO MINIMIZE COMPLICATIONS AND REDUCE HOSPITALIZATION. [code = CARDIOVASCULAR SYSTEM; RN TO ASSESS/TEACH, LICENSED FUNERAL DIRECTOR/QUICK SKETCH ARTIST TO OBSERVE/TEACH RELATED TO ALTERED CARDIOVASCULAR STATUS TO MINIMIZE COMPLICATIONS AND REDUCE HOSPITALIZATION.] Future Scheduled Test HYPERTENSI ON MANAGEMENT; RN TO ASSESS AND TEACH, LICENSED FUNERAL DIRECTOR/QUICK SKETCH ARTIST TO OBSERVE AND TEACH WARNING SIGNS AND SYMPTOMS TO AVOID HOSPITALIZATION. [code = HYPERTENSION MANAGEMENT; RN TO ASSESS AND TEACH, LICENSED FUNERAL DIRECTOR/QUICK SKETCH ARTIST TO OBSERVE AND TEACH WARNING SIGNS AND SYMPTOMS TO AVOID HOSPITALIZATION.] Future Scheduled Test RESPIRATOR Y SYSTEM MANAGEMENT; RN TO ASSESS AND TEACH, LICENSED FUNERAL DIRECTOR/QUICK SKETCH ARTIST TO OBSERVE AND TEACH RELATED TO ALTERED RESPIRATORY STATUS TO MINIMIZE COMPLICATIONS AND REDUCE HOSPITALIZATION. [code = RESPIRATORY SYSTEM MANAGEMENT; RN TO ASSESS AND TEACH, LICENSED FUNERAL DIRECTOR/QUICK SKETCH ARTIST TO OBSERVE AND TEACH RELATED TO ALTERED RESPIRATORY STATUS TO MINIMIZE COMPLICATIONS AND REDUCE HOSPITALIZATION.] Future Scheduled Test COPD MANAG EMENT; RN TO ASSESS AND TEACH, LICENSED FUNERAL DIRECTOR/QUICK SKETCH ARTIST TO OBSERVE AND TEACH SIGNS/SYMPTOMS OF COPD EXACERBATION AND PROVIDE EARLY INTERVENTIONS TO MINIMIZE RISK OF HOSPITALIZATION. RN/LICENSED FUNERAL DIRECTOR/QUICK SKETCH ARTIST TO INSTRUCT ON SELF-CARE MANAGEMENT INCLUDING BREATHING TECHNIQUES, AIRWAY CLEARANCE, AND PROPER USE OF COPD MEDICATIONS. RN TO ASSESS AND TEACH, LICENSED FUNERAL DIRECTOR/QUICK SKETCH ARTIST TO OBSERVE AND TEACH PATIENT/CAREGIVER ABILITY TO MONITOR AND RECORD VITAL SIGNS INCLUDING PULSE OXIMETRY AND BLOOD PRESSURE. PULSE OXIMETER AND BP MONITOR TO BE PROVIDED IF NEEDED . [code = COPD MANAGEMENT; RN TO ASSESS AND TEACH, LICENSED FUNERAL DIRECTOR/QUICK SKETCH ARTIST TO OBSERVE AND TEACH SIGNS/SYMPTOMS OF COPD EXACERBATION AND PROVIDE EARLY INTERVENTIONS TO MINIMIZE RISK OF HOSPITALIZATION. RN/LICENSED FUNERAL DIRECTOR/QUICK SKETCH ARTIST TO INSTRUCT ON SELF-CARE MANAGEMENT INCLUDING BREATHING TECHNIQUES, AIRWAY CLEARANCE, AND PROPER USE OF COPD MEDICATIONS. RN TO ASSESS AND TEACH, LICENSED FUNERAL DIRECTOR/QUICK SKETCH ARTIST TO OBSERVE AND TEACH PATIENT/CAREGIVER ABILITY TO MONITOR AND RECORD VITAL SIGNS INCLUDING PULSE OXIMETRY AND BLOOD PRESSURE. PULSE OXIMETER AND BP MONITOR TO BE PROVIDED IF NEEDED .] Future Scheduled Test ASTHMA MAN AGEMENT; RN TO ASSESS AND TEACH, LICENSED FUNERAL DIRECTOR/QUICK SKETCH ARTIST TO OBSERVE AND TEACH ASTHMA MANAGEMENT AND PROVIDE EARLY INTERVENTIONS TO MINIMIZE RISK OF HOSPITALIZATION [code = ASTHMA MANAGEMENT; RN TO ASSESS AND TEACH, LICENSED FUNERAL DIRECTOR/QUICK SKETCH ARTIST TO OBSERVE AND TEACH ASTHMA MANAGEMENT AND PROVIDE EARLY INTERVENTIONS TO MINIMIZE RISK OF HOSPITALIZATION] Future Scheduled Test PAIN MANAG EMENT; RN TO ASSESS AND TEACH, QUICK SKETCH ARTIST/LICENSED FUNERAL DIRECTOR TO OBSERVE AND TEACH AND PROVIDE EDUCATION ON PAIN MANAGEMENT TECHNIQUES. [code = PAIN MANAGEMENT; RN TO ASSESS AND TEACH, QUICK SKETCH ARTIST/LICENSED FUNERAL DIRECTOR TO OBSERVE AND TEACH AND PROVIDE EDUCATION ON PAIN MANAGEMENT TECHNIQUES.] Future Scheduled Test PRN VISITS ; NUMBER OF RN/LICENSED FUNERAL DIRECTOR/QUICK SKETCH ARTIST VISITS: 1 RN/LICENSED FUNERAL DIRECTOR/QUICK SKETCH ARTIST TO PERFORM: RESPIRATORY MANAGEMENT FOR THE FOLLOWING REASONS: COMPLICATIONS [code = PRN VISITS; NUMBER OF RN/LICENSED FUNERAL DIRECTOR/QUICK SKETCH ARTIST VISITS: 1 RN/LICENSED FUNERAL DIRECTOR/QUICK SKETCH ARTIST TO PERFORM: RESPIRATORY MANAGEMENT FOR THE FOLLOWING REASONS: COMPLICATIONS ] Future Scheduled Test PHYSICAL T HERAPIST TO EVALUATE FOR EVALUATION AND TREATMENT [code = PHYSICAL THERAPIST TO EVALUATE FOR EVALUATION AND TREATMENT ] Future Scheduled Test OCCUPATION AL THERAPIST TO EVALUATE FOR ELEVATION AND TREATMENT [code = OCCUPATIONAL THERAPIST TO EVALUATE FOR ELEVATION AND TREATMENT ] Future Scheduled Test FALL REDUC TION MANAGEMENT; RN TO ASSESS AND OBSERVE, LICENSED FUNERAL DIRECTOR/QUICK SKETCH ARTIST TO OBSERVE FALL RISK FACTORS AND EDUCATE PATIENT/CAREGIVER ON STRATEGIES TO MINIMIZE THE RISK OF FALLING. [code = FALL REDUCTION MANAGEMENT; RN TO ASSESS AND OBSERVE, LICENSED FUNERAL DIRECTOR/QUICK SKETCH ARTIST TO OBSERVE FALL RISK FACTORS AND EDUCATE PATIENT/CAREGIVER ON STRATEGIES TO MINIMIZE THE RISK OF FALLING.] Future Scheduled Test AGENCY MAY PERFORM A RESUMPTION OF CARE VISIT FOLLOWING ANY HOSPITAL ADMISSION. OT TO EVALUATE, OBSERVE / ASSESS, AND MONITOR, DARRYL TO OBSERVE AND MONITOR, PROVIDE SKILLED THERAPEUTIC INTERVENTION, ACTIVITY, EDUCATION, AND TRAINING TO ADDRESS SAFETY AND INDEPENDENCE OF ADLS AND FUNCTIONAL TRANSFERS IN HOME ENVIRONMENT. BATHING/SHOWERING (OT/DARRYL) ACTIVITIES OF DAILY LIVING (OT/DARRYL) BATH/SHOWER TRANSFER (OT/DARRYL) OT/GEOPHYSICAL PROSPECTOR TO MONITOR AND EDUCATE ON OXYGEN SATURATION DURING ADLS/IADLS, NOTIFY PHYSICIAN AND/OR THE RN CLINICAL MICROWAVE ENGINEER FOR PHYSICIAN NOTIFICATION AND IF O2 SATS BELOW 90% AFTER 10 MIN OF REST. OT / GEOPHYSICAL PROSPECTOR TO IDENTIFY FALL RISK FACTORS; EDUCATE THE PATIENT/CAREGIVER ON WAYS TO REDUCE FALL RISK FACTORS AND ESTABLISH HOME EXERCISE PROGRAM TO MINIMIZE FALL RISK. MAY TEACH THE PATIENT FLOOR RECOVERY WHEN CLINICALLY APPROPRIATE. OT/DARRYL TO EDUCATE ON HYPERTENSION SELF-MANAGEMENT OT/GEOPHYSICAL PROSPECTOR TO EDUCATE ON COPD SELF-MANAGEMENT [code = AGENCY MAY PERFORM A RESUMPTION OF CARE VISIT FOLLOWING ANY HOSPITAL ADMISSION. OT TO EVALUATE, OBSERVE / ASSESS, AND MONITOR, GEOPHYSICAL PROSPECTOR TO OBSERVE AND MONITOR, PROVIDE SKILLED THERAPEUTIC INTERVENTION, ACTIVITY, EDUCATION, AND TRAINING TO ADDRESS SAFETY AND INDEPENDENCE OF ADLS AND FUNCTIONAL TRANSFERS IN HOME ENVIRONMENT. BATHING/SHOWERING (OT/GEOPHYSICAL PROSPECTOR) ACTIVITIES OF DAILY LIVING (OT/GEOPHYSICAL PROSPECTOR) BATH/SHOWER TRANSFER (OT/DARRYL) OT/DARRYL TO MONITOR AND EDUCATE ON OXYGEN SATURATION DURING ADLS/IADLS, NOTIFY PHYSICIAN AND/OR THE RN CLINICAL MICROWAVE ENGINEER FOR PHYSICIAN NOTIFICATION AND IF O2 SATS BELOW 90% AFTER 10 MIN OF REST. OT / GEOPHYSICAL PROSPECTOR TO IDENTIFY FALL RISK FACTORS; EDUCATE THE PATIENT/CAREGIVER ON WAYS TO REDUCE FALL RISK FACTORS AND ESTABLISH HOME EXERCISE PROGRAM TO MINIMIZE FALL RISK. MAY TEACH THE PATIENT FLOOR RECOVERY WHEN CLINICALLY APPROPRIATE. OT/GEOPHYSICAL PROSPECTOR TO EDUCATE ON HYPERTENSION SELF-MANAGEMENT OT/GEOPHYSICAL PROSPECTOR TO EDUCATE ON COPD SELF-MANAGEMENT] Future Scheduled Test AGENCY MAY PERFORM A RESUMPTION OF CARE VISIT FOLLOWING ANY HOSPITAL ADMISSION. PT TO EVALUATE, OBSERVE / ASSESS, AND MONITOR, MARKETING DATABASE CONSULTANT TO OBSERVE AND MONITOR, PROVIDE SKILLED THERAPEUTIC INTERVENTION, ACTIVITY, EDUCATION, AND TRAINING TO ADDRESS; PT/MARKETING DATABASE CONSULTANT TO PROVIDE GAIT TRAINING FOR IMPROVED MOBILITY AND /OR TO NORMALIZE GAIT PATTERN NEUROMUSCULAR RE-EDUCATION / BALANCE / POSTURAL CONTROL (PT) THERAPEUTIC EXERCISES AND ESTABLISHING A HOME EXERCISE PROGRAM (PT/MARKETING DATABASE CONSULTANT) PT/MARKETING DATABASE CONSULTANT TO PROVIDE STAIR TRAINING SIT TO/FROM STAND TRANSFERS (PT/MARKETING DATABASE CONSULTANT) PT / MARKETING DATABASE CONSULTANT TO MONITOR AND EDUCATE ON OXYGEN SATURATION DURING ADLS/IADLS, NOTIFY PHYSICIAN AND/OR THE RN CLINICAL MICROWAVE ENGINEER FOR PHYSICIAN NOTIFICATION AND IF O2 SATS BELOW PHYSICIAN ORDERED PARAMETERS AFTER 10 MIN OF REST PT / MARKETING DATABASE CONSULTANT TO EDUCATE ON COPD SELF-MANAGEMENT PT/MARKETING DATABASE CONSULTANT TO IDENTIFY FALL RISK FACTORS; EDUCATE THE PATIENT/CAREGIVER ON WAYS TO REDUCE FALL RISK FACTORS AND ESTABLISH HOME EXERCISE PROGRAM TO MINIMIZE FALL RISK. MAY TEACH THE PATIENT FLOOR RECOVERY WHEN CLINICALLY APPROPRIATE [code = AGENCY MAY PERFORM A RESUMPTION OF CARE VISIT FOLLOWING ANY HOSPITAL ADMISSION. PT TO EVALUATE, OBSERVE / ASSESS, AND MONITOR, MARKETING DATABASE CONSULTANT TO OBSERVE AND MONITOR, PROVIDE SKILLED THERAPEUTIC INTERVENTION, ACTIVITY, EDUCATION, AND TRAINING TO ADDRESS; PT/MARKETING DATABASE CONSULTANT TO PROVIDE GAIT TRAINING FOR IMPROVED MOBILITY AND /OR TO NORMALIZE GAIT PATTERN NEUROMUSCULAR RE-EDUCATION / BALANCE / POSTURAL CONTROL (PT) THERAPEUTIC EXERCISES AND ESTABLISHING A HOME EXERCISE PROGRAM (PT/MARKETING DATABASE CONSULTANT) PT/MARKETING DATABASE CONSULTANT TO PROVIDE STAIR TRAINING SIT TO/FROM STAND TRANSFERS (PT/MARKETING DATABASE CONSULTANT) PT / MARKETING DATABASE CONSULTANT TO MONITOR AND EDUCATE ON OXYGEN SATURATION DURING ADLS/IADLS, NOTIFY PHYSICIAN AND/OR THE RN CLINICAL MICROWAVE ENGINEER FOR PHYSICIAN NOTIFICATION AND IF O2 SATS BELOW PHYSICIAN ORDERED PARAMETERS AFTER 10 MIN OF REST PT / MARKETING DATABASE CONSULTANT TO EDUCATE ON COPD SELF-MANAGEMENT PT/MARKETING DATABASE CONSULTANT TO IDENTIFY FALL RISK FACTORS; EDUCATE THE PATIENT/CAREGIVER ON WAYS TO REDUCE FALL RISK FACTORS AND ESTABLISH HOME EXERCISE PROGRAM TO MINIMIZE FALL RISK. MAY TEACH THE PATIENT FLOOR RECOVERY WHEN CLINICALLY APPROPRIATE] Goal Patient Goal - I NCREASE STRENGTH AND WALK FURTHER Goal Provider Goal - A PLAN OF CARE WILL BE ESTABLISHED THAT MEETS THE PATIENTS NEEDS. PATIENT WILL DEMONSTRATE OXYGEN SATURATION WITHIN NORMAL LIMITS OR PATIENTS OPTIMAL LEVEL ESTABLISHED BY THE PHYSICIAN THROUGHOUT CARE. CHANGES TO CO-MORBID CONDITIONS AND ANY NEW CONDITIONS WILL BE IDENTIFIED AND REPORTED TO THE PHYSICIAN. Goal Provider Goal - COPD WILL BE CONTROLLED THROUGHOUT THE EPISODE. Goal Provider Goal - PATIENT/CAREGIVER WILL VERBALIZE UNDERSTANDING OF SIGNS AND SYMPTOMS THAT PUT THE PATIENT AT RISK FOR HOSPITALIZATION /EMERGENCY ROOM VISITS, WHEN TO NOTIFY NURSE/PHYSICIAN OF COMPLICATIONS/DECLINE AND WHEN TO CALL 911. Goal Provider Goal - PATIENT / CAREGIVER WILL VERBALIZE/DEMONSTRATE UNDERSTANDING OF MEASURES TO MANAGE ALTERED CARDIOVASCULAR STATUS BY EOE Goal Provider Goal - PATIENT / CAREGIVER WILL VERBALIZE/DEMONSTRATE AN ABILITY TO ADHERE TO SELF-MANAGEMENT OF HTN TO MINIMIZE COMPLICATIONS AND AVOID HOSPITALIZATION BY END OF EPISODE. Goal Provider Goal - PATIENT / CAREGIVER WILL VERBALIZE/DEMONSTRATE UNDERSTANDING OF MEASURES TO MANAGE ALTERED RESPIRATORY STATUS BY END OF EPISODE. Goal Provider Goal - PATIENT / CAREGIVER WILL VERBALIZE/DEMONSTRATE AN ABILITY TO ADHERE TO SELF-MANAGEMENT OF COPD TO MINIMIZE COMPLICATIONS AND AVOID HOSPITALIZATION BY END OF EPISODE. Goal Provider Goal - PATIENT/CAREGIVER WILL VERBALIZE/ DEMONSTRATE AN ABILITY TO ADHERE TO SELF-MANAGEMENT OF ASTHMA TO MINIMIZE COMPLICATIONS AND AVOID HOSPITALIZATIONS BY END OF EPISODE. Goal Provider Goal - PATIENT / CAREGIVER WILL VERBALIZE / DEMONSTRATE UNDERSTANDING OF PAIN CONTROL MEASURES BY EOE Goal Provider Goal - Goal Provider Goal - Goal Provider Goal - Goal Provider Goal - PATIENT/CAREGIVER WILL VERBALIZE/DEMONSTRATE UNDERSTANDING OF FALL RISK FACTORS AND IMPLEMENT STRATEGIES TO MINIMIZE FALL RISK. PATIENT/CAREGIVER WILL VERBALIZE/DEMONSTRATE AN ABILITY TO ADHERE TO FALL REDUCTION SELF-MANAGEMENT AND LIFE-STYLE CHANGES BY EOE Goal Provider Goal - OT STG: PATIENT WILL SAFELY COMPLETE BATHING IN SHOWER WITH SBA WITH USE OF AE NEEDED WITHIN 2 WEEKS. OT LTG: PATIENT WILL DEMONSTRATE IMPROVED ABILITY TO PERFORM BATHING/SHOWERING AND REDUCE CAREGIVER BURDEN FROM UNABLE TO MOD I WITHIN 3 WEEKS. OT LTG: PATIENT WILL DEMONSTRATE IMPROVEMENT IN MODIFIED ANDERSON INDEX SCORE FROM 91 TO 93 INDICATING DECREASED DEPENDENCY ON CAREGIVER ASSISTANCE WITH ACTIVITIES OF DAILY LIVING WITHIN 3 WEEKS. OT LTG: PATIENT WILL DEMONSTRATE IMPROVED ABILITY AND SAFETY TO PERFORM BATH/SHOWER TRANSFER FROM UNABLE TO MOD I WITHIN 3 WEEKS. OT LTG: PATIENT WILL MAINTAIN OXYGEN SATURATION WITHIN PHYSICIAN ORDERED PARAMETERS THROUGHOUT THE EPISODE OF CARE. OT LTG: PATIENT/CAREGIVER WILL BE ABLE TO IMPLEMENT RECOMMENDATIONS SPECIFIC TO FALL REDUCTION FOR IMPROVED ADL/IADL COMPLETION AND HOME SAFETY BY END OF EPISODE. OT LTG: PATIENT WILL BE INDEPENDENT WITH IMPLEMENTATION OF HEP WITHIN 3 WEEKS. OT GOAL: PATIENT/CAREGIVER WILL BE ABLE TO IDENTIFY SIGNS OF EXACERBATION OF HYPERTENSION AND WILL VERBALIZE/DEMONSTRATE AN ABILITY TO ADHERE TO HYPERTENSION SELF-MANAGEMENT AND LIFE-STYLE CHANGES BY END OF EPISODE OT GOAL: THE PATIENT / CAREGIVER WILL DEMONSTRATE ADHERENCE TO COPD SELF-MANAGEMENT BY END OF EPISODE . Goal Provider Goal - PT LTG: PATIENT WILL DEMONSTRATE IMPROVED SAFE FUNCTIONAL MOBILITY BY IMPROVING AMBULATION FROM 60 FEET WITH CONTACT GUARD ASSIST TO AMBULATING 5 CONTINUOUS MINUTES WITHOUT A REST BREAK INDEPENDENTLY WITHOUT A DEVICE IN 5 WEEKS ... PT LTG: PATIENT WILL DEMONSTRATE REDUCED FALL RISK EVIDENCED BY IMPROVING TINETTI SCORE FROM 18/28 TO 25/28 IN 5 WEEKS PT LTG: PATIENT WILL DEMONSTRATE IMPROVED FUNCTIONAL STRENGTH EVIDENCED BY FIVE TIMES SIT TO STAND TEST (CUT SCORE >12 SECONDS INDICATES AN INCREASED FALL RISK) IMPROVING FROM UNABLE TO COMPLETED IN 30 SEC WITH UE ASSIST PT LTG: PATIENT WILL DEMONSTRATE INCREASED STRENGTH OF BILAT HIP FLEX FROM3/5 TO 4/5 IN 5BWEEKS PT LTG: PATIENT WILL DEMONSTRATE IMPROVED ABILITY TO SAFELY NEGOTIATE STAIRS FROM CGA TOMINDEP WITH HANDRAIL IN 5 WEEKS PT STG: PATIENT WILL DEMONSTRATE IMPROVED ABILITY TO PERFORM SIT TO/FROM STAND TRANSFERS TO REDUCE THE RISK OF SKIN BREAKDOWN AND REDUCE FALL RISK FROM CGA TOMINDEP IN 3 WEEKS PT LTG: PATIENT WILL MAINTAIN OXYGEN SATURATION WITHIN PHYSICIAN ORDERED PARAMETERS THROUGHOUT EPISODE OF CARE. PT GOAL: THE PATIENT / CAREGIVER WILL DEMONSTRATE ADHERENCE TO COPD SELF-MANAGEMENT BY END OF EPISODE. PT LTG: PATIENT/CAREGIVER WILL DEMONSTRATE ADHERENCE TO FALL REDUCTION SELF-MANAGEMENT AND REDUCING FALL RISK FACTORS TO MINIMIZE FALL RISK BY END OF EPISODE PT LTG: PATIENT WILL BE INDEPENDENT WITH IMPLEMENTATION OF HEP WITHIN 3 WEEKS Encounters Start Date/Time End Date/Time Encounter Type Admission Type Attending [facility] Facility Care Department Encounter ID Discharge Date Discharge Status Discharge Condition Discharge Reason Percent Goals Met 2024-07-11 00:00:00 2024-09-08 00:00:00 Outpatient NEW ADMISSION [facility] [id number]
--- OUTSIDE RECORDS SUMMARY | 2024-07-15 14:11 | XMS_ITS | Clinical Summary ---
Author Organization [facility] Address [address] [place] [id number] Care Team Providers Care Automatic Mold Sander Name Role Phone Unavailable Primary Care Provider [...]
--- OUTSIDE RECORDS SUMMARY | 2024-07-15 14:11 | XMS_ITS | Clinical Summary ---
Author Organization Unknown Care Team Providers Care Contract Law Specialist Name Role Phone DAVE MUJICA [id number]/ INTERSTATE, SAIDA Unavailab le Unavailable KURT RN, GAVI Unavailable Unavailbharti BREWER PT, JAYASHREE Unavailable Unavailable PATRICIA OT, VINCENT Unavailable Unavailable KYA REYESN, LATOSHA Unavailable Unavailable Payers Payer Name Policy Type Policy Number Effective Date Expira tion Date [facility] [id number] Problems Condition Name Condition Details Condition Category [...] PHYSICIANS . RN TO OBSERVE AND ASSESS, EMT/YARD ASSISTANT TO OBSERVE FOR RISK FOR FALLS AND INSTRUCT IN FALL PREVENTION, HOME SAFETY, MEDICATION MANAGEMENT, INFECTION PREVENTION, AND NUTRITION MANAGEMENT. RN/EMT/YARD ASSISTANT NURSE MAY PERFORM O2 SATURATION LEVEL ON ADMISSION AND PRN FOR EVERY VISIT FOR RN TO ASSESS/EMT TO OBSERVE PATIENT, WITH NOTIFICATION TO THE PHYSICIAN IF SATURATION IS 90% IN THE ABSENCE OF MORE SPECIFIC PARAMETERS FROM THE PHYSICIAN. AGENCY MAY PERFORM A RESUMPTION OF CARE VISIT FOLLOWING ANY HOSPITAL ADMISSION. RN/EMT/YARD ASSISTANT TO MONITOR CO-MORBID CONDITIONS LISTED ON THE PLAN OF CARE AND ANY NEW CONDITIONS THAT PRESENT THEMSELVES DURING THIS EPISODE TO IDENTIFY CHANGES AND INTERVENE TO MINIMIZE COMPLICATIONS. [code = RN TO OBSERVE, ASSESS, EVALUATE, AND DEVELOP AN INDIVIDUALIZED PLAN OF CARE. AGENCY MAY ACCEPT ORDERS FROM CONSULTING PHYSICIANS . RN TO OBSERVE AND ASSESS, EMT/YARD ASSISTANT TO OBSERVE FOR RISK FOR FALLS AND INSTRUCT IN FALL PREVENTION, HOME SAFETY, MEDICATION MANAGEMENT, INFECTION PREVENTION, AND NUTRITION MANAGEMENT. RN/EMT/YARD ASSISTANT NURSE MAY PERFORM O2 SATURATION LEVEL ON ADMISSION AND PRN FOR EVERY VISIT FOR RN TO ASSESS/EMT TO OBSERVE PATIENT, WITH NOTIFICATION TO THE PHYSICIAN IF SATURATION IS 90% IN THE ABSENCE OF MORE SPECIFIC PARAMETERS FROM THE PHYSICIAN. AGENCY MAY PERFORM A RESUMPTION OF CARE VISIT FOLLOWING ANY HOSPITAL ADMISSION. RN/EMT/YARD ASSISTANT TO MONITOR CO-MORBID CONDITIONS LISTED ON THE PLAN OF CARE AND ANY NEW CONDITIONS THAT PRESENT THEMSELVES DURING THIS EPISODE TO IDENTIFY CHANGES AND INTERVENE TO MINIMIZE COMPLICATIONS.] Future Scheduled Test COPD MONIT ORING RN/YARD ASSISTANT/EMT TO MONITOR FOR SIGNS AND SYMPTOMS OF COPD EXACERBATION, MONITOR FOR ADHERENCE TO MEDICATION AND COPD MANAGEMENT. [code = COPD MONITORING RN/YARD ASSISTANT/EMT TO MONITOR FOR SIGNS AND SYMPTOMS OF COPD EXACERBATION, MONITOR FOR ADHERENCE TO MEDICATION AND COPD MANAGEMENT.] Future Scheduled Test RISK FOR H OSPITALIZATION; RN TO ASSESS/TEACH, YARD ASSISTANT/EMT TO OBSERVE/TEACH PATIENT/CAREGIVER ON RISK FOR HOSPITALIZATION/EMERGENCY ROOM VISITS, TEACH SIGNS AND SYMPTOMS THAT PUT PATIENT AT RISK, WHEN TO NOTIFY NURSE/PHYSICIAN OF COMPLICATIONS/DECLINE, AND WHEN TO CALL 911. [code = RISK FOR HOSPITALIZATION; RN TO ASSESS/TEACH, YARD ASSISTANT/EMT TO OBSERVE/TEACH PATIENT/CAREGIVER ON RISK FOR HOSPITALIZATION/EMERGENCY ROOM VISITS, TEACH SIGNS AND SYMPTOMS THAT PUT PATIENT AT RISK, WHEN TO NOTIFY NURSE/PHYSICIAN OF COMPLICATIONS/DECLINE, AND WHEN TO CALL 911.] Future Scheduled Test CARDIOVASC ULAR SYSTEM; RN TO ASSESS/TEACH, EMT/YARD ASSISTANT TO OBSERVE/TEACH RELATED TO ALTERED CARDIOVASCULAR STATUS TO MINIMIZE COMPLICATIONS AND REDUCE HOSPITALIZATION. [code = CARDIOVASCULAR SYSTEM; RN TO ASSESS/TEACH, EMT/YARD ASSISTANT TO OBSERVE/TEACH RELATED TO ALTERED CARDIOVASCULAR STATUS TO MINIMIZE COMPLICATIONS AND REDUCE HOSPITALIZATION.] Future Scheduled Test HYPERTENSI ON MANAGEMENT; RN TO ASSESS AND TEACH, EMT/YARD ASSISTANT TO OBSERVE AND TEACH WARNING SIGNS AND SYMPTOMS TO AVOID HOSPITALIZATION. [code = HYPERTENSION MANAGEMENT; RN TO ASSESS AND TEACH, EMT/YARD ASSISTANT TO OBSERVE AND TEACH WARNING SIGNS AND SYMPTOMS TO AVOID HOSPITALIZATION.] Future Scheduled Test RESPIRATOR Y SYSTEM MANAGEMENT; RN TO ASSESS AND TEACH, EMT/YARD ASSISTANT TO OBSERVE AND TEACH RELATED TO ALTERED RESPIRATORY STATUS TO MINIMIZE COMPLICATIONS AND REDUCE HOSPITALIZATION. [code = RESPIRATORY SYSTEM MANAGEMENT; RN TO ASSESS AND TEACH, EMT/YARD ASSISTANT TO OBSERVE AND TEACH RELATED TO ALTERED RESPIRATORY STATUS TO MINIMIZE COMPLICATIONS AND REDUCE HOSPITALIZATION.] Future Scheduled Test COPD MANAG EMENT; RN TO ASSESS AND TEACH, EMT/YARD ASSISTANT TO OBSERVE AND TEACH SIGNS/SYMPTOMS OF COPD EXACERBATION AND PROVIDE EARLY INTERVENTIONS TO MINIMIZE RISK OF HOSPITALIZATION. RN/EMT/YARD ASSISTANT TO INSTRUCT ON SELF-CARE MANAGEMENT INCLUDING BREATHING TECHNIQUES, AIRWAY CLEARANCE, AND PROPER USE OF COPD MEDICATIONS. RN TO ASSESS AND TEACH, EMT/YARD ASSISTANT TO OBSERVE AND TEACH PATIENT/CAREGIVER ABILITY TO MONITOR AND RECORD VITAL SIGNS INCLUDING PULSE OXIMETRY AND BLOOD PRESSURE. PULSE OXIMETER AND BP MONITOR TO BE PROVIDED IF NEEDED . [code = COPD MANAGEMENT; RN TO ASSESS AND TEACH, EMT/YARD ASSISTANT TO OBSERVE AND TEACH SIGNS/SYMPTOMS OF COPD EXACERBATION AND PROVIDE EARLY INTERVENTIONS TO MINIMIZE RISK OF HOSPITALIZATION. RN/EMT/YARD ASSISTANT TO INSTRUCT ON SELF-CARE MANAGEMENT INCLUDING BREATHING TECHNIQUES, AIRWAY CLEARANCE, AND PROPER USE OF COPD MEDICATIONS. RN TO ASSESS AND TEACH, EMT/YARD ASSISTANT TO OBSERVE AND TEACH PATIENT/CAREGIVER ABILITY TO MONITOR AND RECORD VITAL SIGNS INCLUDING PULSE OXIMETRY AND BLOOD PRESSURE. PULSE OXIMETER AND BP MONITOR TO BE PROVIDED IF NEEDED .] Future Scheduled Test ASTHMA MAN AGEMENT; RN TO ASSESS AND TEACH, EMT/YARD ASSISTANT TO OBSERVE AND TEACH ASTHMA MANAGEMENT AND PROVIDE EARLY INTERVENTIONS TO MINIMIZE RISK OF HOSPITALIZATION [code = ASTHMA MANAGEMENT; RN TO ASSESS AND TEACH, EMT/YARD ASSISTANT TO OBSERVE AND TEACH ASTHMA MANAGEMENT AND PROVIDE EARLY INTERVENTIONS TO MINIMIZE RISK OF HOSPITALIZATION] Future Scheduled Test PAIN MANAG EMENT; RN TO ASSESS AND TEACH, YARD ASSISTANT/EMT TO OBSERVE AND TEACH AND PROVIDE EDUCATION ON PAIN MANAGEMENT TECHNIQUES. [code = PAIN MANAGEMENT; RN TO ASSESS AND TEACH, YARD ASSISTANT/EMT TO OBSERVE AND TEACH AND PROVIDE EDUCATION ON PAIN MANAGEMENT TECHNIQUES.] Future Scheduled Test PRN VISITS ; NUMBER OF RN/EMT/YARD ASSISTANT VISITS: 1 RN/EMT/YARD ASSISTANT TO PERFORM: RESPIRATORY MANAGEMENT FOR THE FOLLOWING REASONS: COMPLICATIONS [code = PRN VISITS; NUMBER OF RN/EMT/YARD ASSISTANT VISITS: 1 RN/EMT/YARD ASSISTANT TO PERFORM: RESPIRATORY MANAGEMENT FOR THE FOLLOWING [...] TION MANAGEMENT; RN TO ASSESS AND OBSERVE, EMT/YARD ASSISTANT TO OBSERVE FALL RISK FACTORS AND EDUCATE PATIENT/CAREGIVER ON STRATEGIES TO MINIMIZE THE RISK OF FALLING. [code = FALL REDUCTION MANAGEMENT; RN TO ASSESS AND OBSERVE, EMT/YARD ASSISTANT TO OBSERVE FALL RISK FACTORS AND EDUCATE [...] OF DAILY LIVING (OT/DARRYL) BATH/SHOWER TRANSFER (OT/DARRYL) OT/BLOOD BANK SUPERVISOR TO MONITOR AND EDUCATE ON OXYGEN SATURATION DURING ADLS/IADLS, NOTIFY PHYSICIAN AND/OR THE RN CLINICAL CORSET MAKER FOR PHYSICIAN NOTIFICATION AND IF O2 SATS BELOW 90% AFTER 10 MIN OF REST. OT / BLOOD BANK SUPERVISOR TO IDENTIFY FALL RISK FACTORS; EDUCATE THE PATIENT/CAREGIVER ON WAYS TO REDUCE FALL RISK FACTORS AND ESTABLISH HOME EXERCISE PROGRAM TO MINIMIZE FALL RISK. MAY TEACH THE PATIENT FLOOR RECOVERY WHEN CLINICALLY APPROPRIATE. OT/DARRYL TO EDUCATE ON HYPERTENSION SELF-MANAGEMENT OT/BLOOD BANK SUPERVISOR TO EDUCATE ON COPD SELF-MANAGEMENT [code = AGENCY MAY PERFORM A RESUMPTION OF CARE VISIT FOLLOWING ANY HOSPITAL ADMISSION. OT TO EVALUATE, OBSERVE / ASSESS, AND MONITOR, BLOOD BANK SUPERVISOR TO OBSERVE AND MONITOR, PROVIDE SKILLED THERAPEUTIC INTERVENTION, ACTIVITY, EDUCATION, AND TRAINING TO ADDRESS SAFETY AND INDEPENDENCE OF ADLS AND FUNCTIONAL TRANSFERS IN HOME ENVIRONMENT. BATHING/SHOWERING (OT/BLOOD BANK SUPERVISOR) ACTIVITIES OF DAILY LIVING (OT/BLOOD BANK SUPERVISOR) BATH/SHOWER TRANSFER (OT/DARRYL) OT/DARRYL TO MONITOR AND EDUCATE ON OXYGEN SATURATION DURING ADLS/IADLS, NOTIFY PHYSICIAN AND/OR THE RN CLINICAL CORSET MAKER FOR PHYSICIAN NOTIFICATION AND IF O2 SATS BELOW 90% AFTER 10 MIN OF REST. OT / BLOOD BANK SUPERVISOR TO IDENTIFY FALL RISK FACTORS; EDUCATE THE PATIENT/CAREGIVER ON WAYS TO REDUCE FALL RISK FACTORS AND ESTABLISH HOME EXERCISE PROGRAM TO MINIMIZE FALL RISK. MAY TEACH THE PATIENT FLOOR RECOVERY WHEN CLINICALLY APPROPRIATE. OT/BLOOD BANK SUPERVISOR TO EDUCATE ON HYPERTENSION SELF-MANAGEMENT OT/BLOOD BANK SUPERVISOR TO EDUCATE ON COPD SELF-MANAGEMENT] Future Scheduled Test AGENCY MAY PERFORM A RESUMPTION OF CARE VISIT FOLLOWING ANY HOSPITAL ADMISSION. PT TO EVALUATE, OBSERVE / ASSESS, AND MONITOR, LAUNCH LEADER TO OBSERVE AND MONITOR, PROVIDE SKILLED THERAPEUTIC INTERVENTION, ACTIVITY, EDUCATION, AND TRAINING TO ADDRESS; PT/LAUNCH LEADER TO PROVIDE GAIT TRAINING FOR IMPROVED MOBILITY AND /OR TO NORMALIZE GAIT PATTERN NEUROMUSCULAR RE-EDUCATION / BALANCE / POSTURAL CONTROL (PT) THERAPEUTIC EXERCISES AND ESTABLISHING A HOME EXERCISE PROGRAM (PT/LAUNCH LEADER) PT/LAUNCH LEADER TO PROVIDE STAIR TRAINING SIT TO/FROM STAND TRANSFERS (PT/LAUNCH LEADER) PT / LAUNCH LEADER TO MONITOR AND EDUCATE ON OXYGEN SATURATION DURING ADLS/IADLS, NOTIFY PHYSICIAN AND/OR THE RN CLINICAL CORSET MAKER FOR PHYSICIAN NOTIFICATION AND IF O2 SATS BELOW PHYSICIAN ORDERED PARAMETERS AFTER 10 MIN OF REST PT / LAUNCH LEADER TO EDUCATE ON COPD SELF-MANAGEMENT PT/LAUNCH LEADER TO IDENTIFY FALL RISK FACTORS; EDUCATE THE PATIENT/CAREGIVER ON WAYS TO REDUCE FALL RISK FACTORS AND ESTABLISH HOME EXERCISE PROGRAM TO MINIMIZE FALL RISK. MAY TEACH THE PATIENT FLOOR RECOVERY WHEN CLINICALLY APPROPRIATE [code = AGENCY MAY PERFORM A RESUMPTION OF CARE VISIT FOLLOWING ANY HOSPITAL ADMISSION. PT TO EVALUATE, OBSERVE / ASSESS, AND MONITOR, LAUNCH LEADER TO OBSERVE AND MONITOR, PROVIDE SKILLED THERAPEUTIC INTERVENTION, ACTIVITY, EDUCATION, AND TRAINING TO ADDRESS; PT/LAUNCH LEADER TO PROVIDE GAIT TRAINING FOR IMPROVED MOBILITY AND /OR TO NORMALIZE GAIT PATTERN NEUROMUSCULAR RE-EDUCATION / BALANCE / POSTURAL CONTROL (PT) THERAPEUTIC EXERCISES AND ESTABLISHING A HOME EXERCISE PROGRAM (PT/LAUNCH LEADER) PT/LAUNCH LEADER TO PROVIDE STAIR TRAINING SIT TO/FROM STAND TRANSFERS (PT/LAUNCH LEADER) PT / LAUNCH LEADER TO MONITOR AND EDUCATE ON OXYGEN SATURATION DURING ADLS/IADLS, NOTIFY PHYSICIAN AND/OR THE RN CLINICAL CORSET MAKER FOR PHYSICIAN NOTIFICATION AND IF O2 SATS BELOW PHYSICIAN ORDERED PARAMETERS AFTER 10 MIN OF REST PT / LAUNCH LEADER TO EDUCATE ON COPD SELF-MANAGEMENT PT/LAUNCH LEADER TO IDENTIFY FALL RISK FACTORS; EDUCATE THE [...] End Date/Time Encounter Type Admission Type Attending [facility] Care Department Encounter ID Discharge Date Discharge Status Discharge Condition Discharge Reason Percent Goals Met 2024-07-11 00:00:00 2024-09-08 00:00:00 Outpatient NEW ADMISSION GAVI HICKS [facility] [id number]
--- OUTSIDE RECORDS SUMMARY | 2024-07-15 14:11 | XMS_ITS | Encounter Summary ---
Author Organization [facility] Address [address] [place] [address] Care Team Providers Care Supervisor Screen Making Name Role Phone Rafael Ruiz MD Primary Care Provider [phone] Encounter Details Date Type Department Care Team (Late st Contact Info) Description 12/12/2019 Lab Requisition [facility] [address] [place] [address] Mireya Shahid MD [address] [facility] [address] [place] [address] Social History Tobacco Use Types Packs/Day Years Used Date Smoking Tobacco: Every Day Cigarettes Smokeless Tobacco: Never Alcohol Use Standard Drinks/Week Comments Yes 0.8 (1 standard drink = 0.6 oz p ure alcohol) Comments Unknown Sex and Gender Information Value Date Recorded Sex Assigned at Not on file Legal Sex Female 5:56 PM OPERATIONS ASSISTANT Gender Identity Not on file Sexual Orientation Not on file documented as of this encounter Plan of Treatment Not on file documented as of this encounter Procedures Procedure Name Priority Date/Time Associated Diagnosis Comments DERMATOPATHOLOGY Routine 12/11/2019 12:0 0 AM CDT documented in this encounter Results * DERMATOPATHOLOGY (12/11/2019 12:00 AM CDT) Case Report Dermatopathology Report Case: [id number] Authorizing Provider: Mireya Shahid MD Collected: 12/11/2019 12:00 AM Ordering Location: [facility] Received: 12/12/2019 05:52 AM Pathologist: [...] determined by the Dermatopathology Laboratory at [facility], directed by Dr. Sabina Washington. These tests need not be, and therefore are not, approved by the [place] Food and Drug Administration. The tests are used for clinical purposes. Billing Codes Specimen Charges Stain Charges 01254 1 [id number] 1 0 5:41 PM CDT DERMATOPATHOLOGY LABORATORY Embedded Images 0 5:41 PM CDT DERMATOPATHOLOGY LABORATORY Pathology/Cytolog y TISSUE SPECIMEN FROM SKIN / Unknown 12/11/2019 12/12/2019 5:52 AM CDT Mireya Shahid MD LAB - PATHOLOGY/CYTOLOGY ORD ERABLES Final Result DERMATOPATHOLOGY LABORATORY [facility] - Department of Dermatology [facility] [address] [place] [address], [address] Floor [address] [phone] documented in this encounter Visit Diagnoses Not on filedocumented in this encounter Care Teams Supervisor Screen Making Relationship Specialty Start Date End Date Rafael Ruiz [place] [address] PCP - General 08/19/14 documented as of this encounter
--- OUTSIDE RECORDS SUMMARY | 2024-07-15 14:11 | XMS_ITS | Encounter Summary ---
Author Organization [facility] Address [address] [place] [address] Care Team Providers Care Flatwork Catcher Name Role Phone Nu Shirley MD Primary Care Provider [phone] Encounter Details Date Type Department Care Team (Late st Contact Info) Description 07/14/2024 11:59 PM CDT Anesthesia Event [facility] Anesthesia [address] [place] [address] Chantale Anglin, [facility] [address] [place] [address] Anesthesia Record Procedure Summary Procedure Name Responsible Anesthesiologist Anesthesia Start Time Anesthesia Stop Time ANESTHESIA CONSULT Events No events on file. Meds * Agents No agents on file. * Blood No blood administrations on file. Lines, Drains, and Airways No LDAs on file. documented in this encounter Social History Tobacco Use Types Packs/Day Years Used Date Smoking Tobacco: Some Days Cigarettes 0.2 41.3 Started: 06/16/1977; Last attempted to quit: 06/16/2017 Smokeless Tobacco: Never Comments:occasional cigarett e/ 7 cigarettes/week Alcohol Use Standard Drinks/Week Comments [...] as of this encounter Plan of Treatment Upcoming Encounters Date Type Department Care Team (Late st Contact Info) Description 07/18/2024 11:45 AM CDT Office Visit [facility] Cardiovas and Thor Surg at [facility] [address] [facility] [facility] [address] [place] [address] Tray Cerna MD [address] [facility] [address] [place] [address] 07/18/2024 1:00 PM CDT Hospital Encounter [facility] [address] [place] [address] 08/14/2024 1:00 PM CDT Office Visit [facility] Oncology and Hematology - [place] [address] [facility] [address] [place] [phone] Suhail Luis MD [address] [facility] [address] [place] [address] documented as of this encounter Visit Diagnoses Not on filedocumented in this encounter Care Teams Flatwork Catcher Relationship Specialty Start Date End Date Nu Shirley MD [address] [place] [address] PCP - General Family Practice 07/18/23 documented as of this encounter
--- OUTSIDE RECORDS SUMMARY | 2024-07-15 14:11 | XMS_ITS | Clinical Summary ---
Author Organization [facility] [address] Address [address] [place] [address] Care Team Providers Care Post Tronic Machine Operator Name Role Phone Nu Shirley MD Primary Care Provider [phone] Allergies Active Allergy Reactions Criticality Noted Date [...] (NSTEMI) 06/23/2017 Coronary artery disease invo lving [place] coronary artery of [place] heart without angina pectoris 06/23/2017 Concussion with [...] consider Prolia. She should continue calcium of 9001-1314 mg per day through dietary intake or [...] this time. She should continue calcium of 7892-2420 mg per day through dietary intake or [...] has improved. She should continue calcium of 6197-6040 mg per day through dietary intake or supplements and vitamin D 2000 IU per day get IV Reclast again Assessment & Plan (11/23/2018 4:00 PM CDT): In summary, Ms. GARSIA has osteoporosis that is likely multifactorial secondary to tobacco use and family history of osteoporosis and advanced age. Her bone density has improved. She should continue calcium of 9914-7250 mg per day through dietary intake or supplements and vitamin D 2000 IU per day get IV Reclast again. Assessment & Plan (10/27/2017 12:06 PM CDT): In summary, Ms. GARSIA has osteoporosis that is likely multifactorial secondary to tobacco use and family history of osteoporosis and advanced age. She's being treated with calcium of 7392-8151 mg per day through dietary intake or [...] on file Legal Sex Female 4:14 AM DATE PITTER Gender Identity Female 08/11/2017 1:49 PM CDT Sexual Orientation Not on file Obstetrics History Last Filed Vital Signs Vital Sign Reading Time Taken Comments Blood Pressure 127/65 03/10/2024 10:49 AM DATE PITTER Pulse 94 03/10/2024 10:49 AM DATE PITTER Temperature 36.7 C (98.1 F) 03/10/2024 10:49 AM DATE PITTER Respiratory Rate 20 03/10/2024 10:49 AM DATE PITTER Oxygen Saturation 97% 03/10/2024 10:49 AM DATE PITTER Inhaled Oxygen Concentration - - Weight 60.8 kg (134 lb 1.6 oz) 03/10/2024 10:49 AM DATE PITTER Height 165.1 cm (5' 5 ) 03/10/2024 10:49 AM DATE PITTER Body Mass Index 22.32 03/10/2024 10:49 AM DATE PITTER Plan of Treatment Health Maintenance Due Date Last Done Comments Breast Cancer Screening-Mammogram 1950 Colon Cancer Screening-Colonoscopy 1950 Depression Screening 1950 Hepatitis B Screening 1970 DTaP/Tdap/Td Vaccine (2 - Td or Tdap) 03/28/2016 03/28/2006 Well Visit 65+ 2017 Fall Risk Assessment 03/31/2024 03/31/2023, 12/12/19 20 Influenza Vaccine (Season Ended) 2024 11/13/19 20, 11/28/2018 Osteoporosis Screening-Bone Density Scan 01/11/2025 01/11/2023, 12/31/2021, 12/31/2021, Additional history exists Zoster Vaccine Completed 08/29/2018, 05/18/2018 Pneumococcal vaccine 65+ Completed 020, 12/01/2017, 07/05/2013 Hepatitis C Screening Completed 07/05/2023 Medical Devices Implanted Type Area Condominium Property Manager Device Identifier Shelf Expiration Date Model / Serial / Lot [facility] Device Closure Vascade Od5 Fr Femoral Artery [id number] - [id number] Implanted:Qty: 1 on 03/31/2023 by Miguel Mccloud MD at [facility] 12/02/2024 [id number] / / [id number] Procedures Procedure Name Priority Date/Time Associated Diagnosis Comments HEPATITIS PANEL, ACUTE Routine 07/05/2023 9:55 AM CDT Acid phosphatase elevated Fatigue Hypopotassemia DEXA TBS AXIAL SKELETON BONE DENSITY 1 OR MORE SITES Schedule Routine, Read Routine (OP Routine) 01/11/2023 10:31 AM DATE PITTER Age-related osteoporosis without current pathological fracture from [...] 19. Hep B core IgM Nonreactive Nonreactive [facility] Comment: Interpretive Data If HepB Core IgM Ab is reported as Equivocal, a new sample should be drawn in two weeks for testing. Current interpretive data was last revised on 19. Hep C Ab Nonreactive Nonreactive [facility] Comment: Interpretive Data Nonreactive: Antibodies [...] last revised on 2019. HepBsAg Nonreactive Nonreactive [facility] Blood Venous blood specimen / Unknown 07/05/2023 9:55 AM CDT 07/05/2023 3:12 PM CDT Narrative [facility] - 07/05/2023 5:04 PM CDT Fax results to Dr Nu Shirley [phone] us Nu Shirley MD LAB MICROBIOLOGY - GENERAL GWEN UMANZOR Final Result [facility] [address] Department [place] [address] * Dexa TBS Axial Skeleton Bone Density 1 or more sites (01/11/2023 10:31 AM DATE PITTER) Anatomical Region Laterality Modality Wrist, Body N/A Radiographic Batsheva ging Narrative 01/11/2023 4:22 PM DATE PITTER Patient Name: Oralia Garsia Date of : 1950 Date of scan: 01/11/2023 Bone mineral density was performed on a [employer] Discovery Densitometer. Based on machine cross-calibration and [...] by the International Society of Clinical Densitometry. [id number] Salud John MD IMG DXA PROCEDURES Final Re sult from Last 3 Months or Most Recently Relevant to Health Maintenance Insurance [facility] MEDICARE [facility] Address: [facility] [id number] [place] [address] [facility] MEDICARE [employer] MEDICARE Care Teams Post Tronic Machine Operator Relationship Specialty Start Date End Date Nu Shirley MD PCP - General Family Medicine 01/14/21
--- OUTSIDE RECORDS SUMMARY | 2024-07-15 14:11 | XMS_ITS | Clinical Summary ---
Author Organization [facility] Address [address] [place] [place] [address] Care Team Providers Care Sterile Supervisor Name Role Phone Rafael Ruiz MD Primary Care Provider [phone] Source Comments [facility] [employer],non-owned Affiliates and Associated Physician Practices is amultiple site organization consisting of ambulatory clinics and hospital sitesin [place], [place], [place] and [place]. This disclosure is being madepursuant to the Care Everywhere program and may not contain all information available regarding this patient. Last updated 17.[facility] Allergies Active Allergy Reactions Criticality Noted Date [...] on file Legal Sex Female 5:56 PM AUTO WRECKER Gender Identity Not on file Sexual Orientation [...] MEDICARE [facility] [place] [address] Care Teams Sterile Supervisor Relationship Specialty Start Date End Date Rafael Ruiz MD [address] [place] [address] PCP - General 08/19/14
--- NOTE | 2024-07-15 14:15 | ED_ITS ---
HPI - SOB/Dyspnea General Chief Complaint: Shortness of Breath/Dyspnea Stated Complaint: SOB Time Seen by Provider: 07/15/24 13:52 History of Present Illness HPI Narrative: 73-year-old female with a past medical history including COPD, CAD, hypertension, history of lung nodule status post failed lung biopsy last month resulting in pneumothorax requiring chest tube placement. She was transferred to [facility] for CT surgery evaluation but did not receive any surgical interventions and she was monitored for interval resolution of pneumothorax prior to removing chest tube in discharge home. Patient presents today as she was having right-sided shortness of breath and chest discomfort since yesterday. Patient states that yesterday she slipped and fell on her rug and landed onto her buttock and right side. Since then she has been complaining of right-sided flank pain and difficulty breathing. Difficulty breathing got worse today so she came to the hospital. She states that she has been using her albuterol home without any relief of symptoms and was concerned about her lungs as she recently had the pneumothorax. Patient denies any left-sided chest pain or chest tightness, no nausea, vomiting, headache, vision changes. She endorses right- sided back and flank pain but no bruising. No weakness and she is ambulatory. No sensory changes, no incontinence. No midline back pain or left-sided symptoms. Related Data Home Medications Medication Instructions Recorded Confirmed Last Taken Type aspirin 81 mg tablet,delayed 81 mg PO DAILY 02/19/19 06/19/24 06/02/20 History release clobetasol 0.05 % topical cream 1 applic topical DAILY PRN 03/20/20 06/19/24 06/02/20 History PSORIASIS loratadine 10 mg capsule 10 mg PO DAILY PRN allergy symptoms 03/20/20 06/19/24 06/02/20 History tacrolimus 0.1 % topical ointment 1 applic topical BID PRN PSORIASIS 03/20/20 06/19/24 06/02/20 History triamcinolone acetonide 0.1 % 1 applic topical BID PRN PSORIASIS 03/20/20 06/19/24 06/02/20 History topical cream empagliflozin 10 mg tablet 10 mg PO DAILY 02/09/23 06/19/24 Unknown History (Jardiance) sacubitril 24 mg-valsartan 26 mg 1 tablet PO BID 02/09/23 06/19/24 Unknown History tablet (Entresto) cholecalciferol (vitamin D3) 25 1,000 unit PO DAILY 06/11/24 06/19/24 Unknown History mcg (1,000 unit) capsule fluticasone propionate 50 1 spray intranasal BID PRN nasal 06/11/24 06/19/24 Unknown History mcg/actuation nasal congestion spray,suspension spironolactone 25 mg tablet 25 mg PO DAILY 06/11/24 06/19/24 Unknown History Allergies Allergy/AdvReac Type Severity Reaction Status Date / Time roflumilast (From [facility]) Allergy Unknown Hives Verified 07/15/24 13:56 morphine AdvReac Unknown Nausea Verified 07/15/24 13:56 Review of Systems 2 Review of Systems: As reviewed above in [facility]PI 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 Osteoporosis without current pathological fracture Other emphysema Surgical History Surgical History H/O breast surgery History of heart artery stent Family History Family History Sibling Hypertension Family history of malignant neoplasm of breast in first degree relative Family history of dementia Father Family history of cardiovascular disease Cerebrovascular accident Mother Family history of cardiovascular disease Family history of malignant neoplasm of urinary bladder Social History Social History Smoking packs per day: 0.25 Smoking cigarettes per day: 5.0 Years smoked: 45 Smoking pack-years: 11.25 Smoking status: Current every day smoker Second hand tobacco smoke exposure: No Alcohol intake: current Drinks per week: 2 Substance use: never Substance use type: does not use Do You Feel Safe in your Home?: Yes Lack of Transportation: No Lack of Food: Never True Current Housing: I Have Housing Concerned About Future Housing: No Difficulty Paying Gas/Electric Bills: No Difficulty Paying for Meds: No Currently Unemployed: No Education: High School Diploma/GED Difficulty w/ Childcare or Family Care: No Living arrangements: alone Gender identity (if verbalized by the patient): Female Spiritual care concerns: No Exam 2 Narrative: GENERAL: Uncomfortable appearing and dyspneic, nasal cannula placed for comfort HEAD: [Normocephalic, atraumatic.] EYES: [PERRLA and EOMI.] ENT: Nares clear, no rhinorrhea or epistaxis. Mucous membranes moist. NECK: Supple. CHEST: Coarse bibasilar breath sounds worse on the right side, no wheezing or end-expiratory prolonged phase tender in the right flank chest wall HEART: [Regular rate and rhythm]. No murmur heard. [Normal peripheral pulses.] ABDOMEN: [Soft, nondistended], [No rigidity or guarding] tender in the right flank upper abdomen EXTREMITIES: Normal range of motion. [No edema.] SKIN: Warm, dry, no rash. NEURO: [No focal deficits]. Alert and oriented [x3.] PSYCH: [Normal mood and affect.] Course Vital Signs Vital signs: Vital Signs Temperature 36.9 C 07/15/24 13:40 Pulse Rate 118 H 07/15/24 13:40 Respiratory Rate 35 H 07/15/24 13:40 Blood Pressure 140/91 H 07/15/24 13:40 Pulse Oximetry 94 07/15/24 13:40 Oxygen Delivery Room Air 07/15/24 13:40 Temperature 36.9 C 07/15/24 13:40 Pulse Rate 110 H 07/15/24 17:50 Respiratory Rate 20 07/15/24 17:50 Blood Pressure 140/91 H 07/15/24 13:40 Pulse Oximetry 97 07/15/24 13:48 Oxygen Delivery Nasal Cannula 07/15/24 13:48 Oxygen Flow Rate 2 07/15/24 13:48 Procedures EJ/Peripheral Line Arm L: EJ/Peripheral Line Date: 07/15/24 EJ/Peripheral Line Time: 18:01 Time Out Performed: Yes Skin Cleansed in Sterile Fashion: Yes Ultrasound Guided: Yes Size (gauge): 20 IV Secured and Dressing Applied: Yes Patient Tolerated Procedure: well and no complications MDM - SOB/Dyspnea MDM Narrative Medical decision making narrative: 73-year-old female with history of COPD, hypertension, coronary disease, lung biopsy for a lung nodule resulting in a pneumothorax and interval placement of a left-sided chest tube last month. Patient was transferred to [facility] where she did not receive any interventions and was observed for resolution prior to removal of the chest tube and sent home. Today she presents the emergency room with right-sided chest tightness and chest pain as well as right flank pain. Patient states that she slipped and fell on her carpet rug yesterday and landed onto her buttock and right back but did not hit her head or lose consciousness. No blood thinner use. She is awake alert oriented answers all questions appropriately. She has focal tenderness to palpation over the right-sided flank in the upper abdominal wall and chest wall. No overlying skin changes or bruises. She has coarse breath sounds throughout both lung larson worse on the right side and right base. She is uncomfortable appearing in pain and tachypneic in the mid 30s so nasal cannula was provided for comfort although she is saturating well on room air. She is afebrile but tachycardic. Portable chest x-ray obtained at bedside shows right-sided infiltrates but no pneumothorax. Given patient's historical elements including a fall yesterday suspicion for hemothorax is higher and other potential problems such as pneumonia, empyema, pneumothorax Beny to be evaluated. Her right-sided chest discomfort with history of coronary disease also raises risk factors for ACS although less likely with the historical features today. CBC, CMP, troponin, chest x-ray, EKG, CT of the chest abdomen pelvis was ordered as well as CT of the lumbar and thoracic back rule out vertebral fractures. Patient does not need any head CT of cervical spine CT imaging per [facility] rules based on her historical elements and clinical exam. Patient provided Dilaudid, Zofran, fluid bolus and re-evaluated. Patient's workup shows a leukocytosis of 19.4, hemoglobin of 10.3, elevated platelet count with some hemoconcentration and thrombocytosis. Electrolytes largely unremarkable although minor hypokalemia. Negative lactic acid, normal renal function, normal hepatic function. Negative troponin. Chest x-ray shows right lower lobe pneumonia with effusion. CT scans of the chest abdomen pelvis and back shows no PE or aortic dissection. There is right basilar pneumonia with moderate right-sided pleural effusion. Old rib fractures with no new injury. Left upper lobe nodule unchanged from prior. No evidence of appendicitis diverticulitis or intestinal obstruction, gallbladder distention without stones, mildly prominent CBD with follow-up advised. The vertebrae show a small bony fragment of T4 which is likely chronic, pain shortness no pain in this area. No acute osseous process of thoracic spine. The lumbar spine has moderate canal stenosis at L4-L5 with bilateral narrowing with suggestive nerve root compression. Patient has no signs or symptoms of cauda equina or conus medullaris and no signs of weakness, sensory changes, urine incontinence or anesthesia. Patient was re-evaluated and clinically improving, heart rate came down nicely and pain is tolerated. She is no longer tachypneic. She remains afebrile. Repeat EKG obtained. Her antibiotic coverage was changed to include Unasyn for potential anaerobic coverage given the appearance of her pneumonia on the right lung after discussion with the hospitalist team. Also did discuss the lumbar thoracic findings with the hospitalist team and radiology's recommendations for MRI and they will evaluate the patient this is a make decisions on the acuity of that verses neurosurgical consultation versus outpatient evaluation as patient clinically has no signs or symptoms of concern at this time related to this. Patient was admitted to a [facility] bed with telemetry monitoring. Medical Records Attestation: I reviewed the patient's medical records. Lab Data Attestation: I reviewed the patient's lab results. 07/15/24 13:56 07/15/24 13:56 Labs: Lab Results 07/15/24 07/15/24 Range/Units 13:56 15:58 WBC 19.4 H (4.5-10.0) K/mm3 RBC 3.18 L (4.2-5.4) M/mm3 Hgb 10.3 L (12.0-15.0) g/dL Hct 32.7 L (37.0-47.0) % MCV 102.8 H (80-100) fl MCH 32.4 (26-34) pg MCHC 31.5 L (32-36) g/dl RDW 13.4 (11.5-14.5) % Plt Count 707 H D (150-375) k/mm3 MPV 9.3 (7.4-10.4) fl Immature Gran % (Auto) 0.6 H (0-0.5) % Neut % (Auto) 85.0 H (45.5-73.1) % Lymph % (Auto) 6.7 L (18.3-44.2) % Braxton % (Auto) 6.4 (2.6-8.5) % Eos % (Auto) 0.9 (0-4.4) % Baso % (Auto) 0.4 (0.2-1.2) % Lymph # (Auto) 1.30 (0.9-3.2) K/mm3 Braxton # (Auto) 1.2 H (0.1-0.6) K/mm3 Eos # (Auto) 0.2 (0-0.3) K/mm3 Baso # (Auto) 0.1 (0.0-0.1) K/mm3 Abs Immat Gran (auto) 0.11 H (0.00-0.031) K/mm3 Absolute Neuts (auto) 16.5 H (1.3-6.7) K/mm3 Absolute Nucleated RBC 0.000 (0.0-0.012) K/mm3 Nucleated RBC % 0.0 (0.0-0.2) % Sodium 135 L (137-145) mmol/L Potassium 3.2 L (3.4-5.0) mmol/L Chloride 99 (98-107) mmol/L Carbon Dioxide 26 (22-30) mmol/L Anion Gap 10 (4-12) mmol/L BUN 10 (7-17) mg/dL Creatinine 0.42 L (0.7-1.0) mg/dL Estim Creat Clear Calc 85 ml/min Estimated GFR > 60 (59 - ) Glucose 77 (65-110) mg/dL Lactic Acid 1.5 (0.7-2.0) mmol/L Calcium 8.3 L (8.4-10.2) mg/dL Total Bilirubin 1.5 H (0.2-1.3) mg/dL AST 22 (14-36) U/L ALT 17 (6-35) U/L Alkaline Phosphatase 88 (38-126) U/L Troponin I < 0.012 (0.000-0.034) ng/mL Total Protein 6.0 L (6.3-8.2) g/dL Albumin 2.9 L (3.5-5.1) g/dL Imaging Data Attestation: I personally reviewed and interpreted this imaging study as follows: My impression: Impressions Chest X-Ray 07/15/24 14:18 IMPRESSION: Right lower lobe atelectasis versus pneumonia with pleural effusion. Chest/Abdomen/Pelvis CT 07/15/24 16:21 IMPRESSION: CHEST: 1. No pulmonary embolism or aortic dissection. 2. Right basilar atelectasis versus pneumonia with moderate right pleural effusion. Clinical correlation advised. 3. Healing rib fractures in the right hemithorax. 4. Nodule in the left upper lobe unchanged from previous examination. ABDOMEN/PELVIS: 1. No evidence of appendicitis, diverticulitis or intestinal obstruction. 2. Fat infiltration of the liver. 3. Distended gallbladder with no definite stones. 4. Slightly prominent CBD measuring 1.1 cm. Prominent pancreatic duct also noted. Follow-up advised. CT chest abdomen pelvis w con, CT thoracic lumbar wo con Ordering provider: Chris Mccracken MD History: . fall back,flank pain. abnormal chest xray . Comparison: None. Technique: CT thoracic spine without contrast. Automated exposure control and iterative reconstruction technique were employed. The dose-length product was 261.08 mGy-cm. FINDINGS: VERTEBRAE: Small bony fragment seen near to the spinous process of T4 which is most likely chronic. Clinical evaluation for tenderness in the area advised. Otherwise, Normal height and alignment. No subluxation or visible acute fracture. Kyphosis is seen. DISC SPACES: Well maintained. No significant stenosis as visualized. PARASPINOUS SOFT TISSUES: Normal. IMPRESSION: Small bony fragment near to the spinous process of T4 which is most likely chronic. Clinical correlation advised. Otherwise, No acute osseous abnormality of the thoracic spine. CT chest abdomen pelvis w con, CT thoracic lumbar wo con Ordering provider: Chris Mccracken MD History: 73 years Female with . fall back,flank pain. abnormal chest xray . Comparison: None. Technique: CT lumbar spine without contrast. Automated exposure control and iterative reconstruction technique were employed. The dose-length product was 261.08 mGy-cm. FINDINGS: VERTEBRAE: Normal height and alignment. No subluxation or visible acute fracture. Sclerotic areas seen in the right transverse process of L2. Follow-up advised. DISC SPACES: Well maintained. Degenerative disc disease seen at the level of L5- S1. Spinal canal stenosis seen at the level of L4-L5 with diffuse disc bulge and bilateral narrowing of the foramina. Right nerve compression is highly suggestive. Diffuse disc bulge at the level of L3. PARASPINOUS SOFT TISSUES: Moderate atheromatous disease of the abdominal aorta. IMPRESSION: No acute osseous abnormalities. Moderate spinal canal stenosis at the level of L4-5 with bilateral narrowing of the foramina and highly suggestive right nerve root compression. MRI evaluation advised. Thoracic/Lumbar Spine CT 07/15/24 16:21 IMPRESSION: CHEST: 1. No pulmonary embolism or aortic dissection. 2. Right basilar atelectasis versus pneumonia with moderate right pleural effusion. Clinical correlation advised. 3. Healing rib fractures in the right hemithorax. 4. Nodule in the left upper lobe unchanged from previous examination. ABDOMEN/PELVIS: 1. No evidence of appendicitis, diverticulitis or intestinal obstruction. 2. Fat infiltration of the liver. 3. Distended gallbladder with no definite stones. 4. Slightly prominent CBD measuring 1.1 cm. Prominent pancreatic duct also noted. Follow-up advised. CT chest abdomen pelvis w con, CT thoracic lumbar wo con Ordering provider: Chris Mccracken MD History: . fall back,flank pain. abnormal chest xray . Comparison: None. Technique: CT thoracic spine without contrast. Automated exposure control and iterative reconstruction technique were employed. The dose-length product was 261.08 mGy-cm. FINDINGS: VERTEBRAE: Small bony fragment seen near to the spinous process of T4 which is most likely chronic. Clinical evaluation for tenderness in the area advised. Otherwise, Normal height and alignment. No subluxation or visible acute fracture. Kyphosis is seen. DISC SPACES: Well maintained. No significant stenosis as visualized. PARASPINOUS SOFT TISSUES: Normal. IMPRESSION: Small bony fragment near to the spinous process of T4 which is most likely chronic. Clinical correlation advised. Otherwise, No acute osseous abnormality of the thoracic spine. CT chest abdomen pelvis w con, CT thoracic lumbar wo con Ordering provider: Chris Mccracken MD History: 73 years Female with . fall back,flank pain. abnormal chest xray . Comparison: None. Technique: CT lumbar spine without contrast. Automated exposure control and iterative reconstruction technique were employed. The dose-length product was 261.08 mGy-cm. FINDINGS: VERTEBRAE: Normal height and alignment. No subluxation or visible acute fracture. Sclerotic areas seen in the right transverse process of L2. Follow-up advised. DISC SPACES: Well maintained. Degenerative disc disease seen at the level of L5- S1. Spinal canal stenosis seen at the level of L4-L5 with diffuse disc bulge and bilateral narrowing of the foramina. Right nerve compression is highly suggestive. Diffuse disc bulge at the level of L3. PARASPINOUS SOFT TISSUES: Moderate atheromatous disease of the abdominal aorta. IMPRESSION: No acute osseous abnormalities. Moderate spinal canal stenosis at the level of L4-5 with bilateral narrowing of the foramina and highly suggestive right nerve root compression. MRI evaluation advised. Critical Care Time Critical Care Time Critical Care Time: Yes Total Critical Care Time: 35 Discharge Plan Discharge Clinical Impression: Pneumonia, Pleural effusion on right, Fall, Tachycardia, Tachypnea Patient Disposition: Still a Patient Condition: Stable Patient Language: [place] Prescriptions: No Action Jardiance 10 mg tablet 10 mg PO DAILY Entresto 24-26 mg tablet 1 tablet PO BID aspirin 81 mg tablet,delayed release (DR/EC) 81 mg PO DAILY loratadine 10 mg capsule 10 mg PO DAILY PRN (Reason: allergy symptoms) tacrolimus 0.1 % ointment 1 applic topical BID PRN (Reason: PSORIASIS) Rx Instructions: plaque psoriasis clobetasol 0.05 % cream 1 applic topical DAILY PRN (Reason: PSORIASIS) Rx Instructions: plaque psoriasis triamcinolone acetonide 0.1 % cream 1 applic topical BID PRN (Reason: PSORIASIS) Rx Instructions: for plaque psoriasis ezetimibe [Zetia] 10 mg tablet 10 mg PO DAILY Qty: 30 0RF ipratropium bromide 21 mcg (0.03 %) spray,non-aerosol See Rx Instructions .ROUTE .COMPLEX Qty: 30 5RF Dose Instruction: USE 2 SPRAY(S) IN EACH NOSTRIL THREE TIMES DAILY Rx Instructions: USE 2 SPRAY(S) IN EACH NOSTRIL THREE TIMES DAILY thiamine HCl (vitamin B1) 100 mg tablet 100 mg PO DAILY Qty: 100 3RF cholecalciferol (vitamin D3) 25 mcg (1,000 unit) capsule 1,000 unit PO DAILY spironolactone 25 mg tablet 25 mg PO DAILY fluticasone propionate 50 mcg/actuation spray,suspension 1 spray intranasal BID PRN (Reason: nasal congestion) Rx Instructions: administer into each nostril Zoledronic acid See Rx Instructions .ROUTE .COMPLEX Qty: 100 0RF Rx Instructions: Zoledronic [id number] 5mg/100ml piggyback Infuse 100ml into venous catheter once over 15 minutes; (DME) Space Chamber Spacer See Rx Instructions .ROUTE .COMPLEX Qty: 1 0RF Dose Instruction: USE DIRECTED Rx Instructions: USE DIRECTED eCoastphere 160-9-4.8 mcg/actuation HFA aerosol inhaler See Rx Instructions .ROUTE .COMPLEX Qty: 10.7 11RF Dose Instruction: INHALE 2 PUFFS IN THE MORNING AND IN THE EVENING RINSE AND SPIT AFTER EACH USE WITH A SPACER Rx Instructions: INHALE 2 PUFFS IN THE MORNING AND IN THE EVENING RINSE AND SPIT AFTER EACH USE WITH A SPACER omeprazole 20 mg tablet,delayed release (DR/EC) 20 mg PO DAILY Qty: 90 3RF albuterol sulfate 90 mcg/actuation HFA aerosol inhaler 1 inh INHALATION Q4H Qty: 8.5 3RF Follow-up/Referrals: Nu Shirley MD [Primary Care Provider] -
[2024-07-15] MEDS: LACTATED RINGERS 1,000 ML 999 ML IV CONT (14:23)
[2024-07-15] MEDS: ONDANSETRON INJ 4 MG/2 ML VIAL IV PUSH (14:24)
[2024-07-15] MEDS: HYDROmorphone HCL INJ (*CRX) 2 MG/ML VIAL 0.5 MG IV PUSH (14:24)
[2024-07-15 15:08] LABS: Troponin I < 0.012 ng/mL (0.000-0.034)
[2024-07-15 16:17] LABS: Lactic Acid Reflex 1.5 mmol/L (0.7-2.0)
--- NOTE | 2024-07-15 17:22 | P.HP_ITS ---
H&P: HPI History of Present Illness Date/Time: 07/15/24 17:22 Chief Complaint: Fall and shortness of breath Narrative: 73-year-old female past medical history of COPD, hypertension, CAD, and nodule of right lung presents the hospital with shortness of breath and a fall. Patient states that she had a fall about 3 days ago where she fell onto her butt. She denies hitting her chest or her head. Patient states for the last couple days she has been coughing really hard and has acute right lower chest pain, that is reproducible with palpation. Patient denies nausea vomiting fever chills. In the ED the patient has leukocytosis and 19.4, anemia at 10.3, platelets of 707, sodium of 135, potassium of 3.2. CT of the chest abdomen pelvis show no pulmonary embolism, right basilar atelectasis versus pneumonia with right moderate pleural effusion. Healing rib fractures. Left nodule unchanged. Distended gallbladder with no definite stones. Slightly dilated CBD and pancreatic ducts. Review of Systems Review of Systems: 12 systems were reviewed and are negativ e except for as per HPI. 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 Osteoporosis without current pathological fracture Other emphysema Surgical History Surgical History H/O breast surgery History of heart artery stent Family History Family History Sibling Hypertension Family history of malignant neoplasm of breast in first degree relative Family history of dementia Father Family history of cardiovascular disease Cerebrovascular accident Mother Family history of cardiovascular disease Family history of malignant neoplasm of urinary bladder Social History Social History Smoking packs per day: 0.5 Smoking cigarettes per day: 10.0 Years smoked: 50 Smoking pack-years: 25.00 Smoking status: Former smoker Tobacco type: cigarettes Second hand tobacco smoke exposure: No Alcohol intake: former Drinks per week: 4 Substance use: never Substance use type: does not use Last use: 06/14/2024 Do You Feel Safe in your Home?: Yes Lack of Transportation: No Lack of Food: Never True Current Housing: I Have Housing Concerned About Future Housing: No Difficulty Paying Gas/Electric Bills: No Difficulty Paying for Meds: No Currently Unemployed: No Education: High School Diploma/GED Difficulty w/ Childcare or Family Care: No Living arrangements: alone Gender identity (if verbalized by the patient): Female Spiritual care concerns: No Meds Home Medications and Allergies Home Medications Medication Instructions Recorded Confirmed Type aspirin 81 mg tablet,delayed 81 mg PO DAILY 02/19/19 07/15/24 History release clobetasol 0.05 % topical cream 1 applic topical DAILY PRN 03/20/20 07/15/24 History PSORIASIS tacrolimus 0.1 % topical ointment 1 applic topical BID PRN PSORIASIS 03/20/20 07/15/24 History triamcinolone acetonide 0.1 % 1 applic topical BID PRN PSORIASIS 03/20/20 07/15/24 History topical cream ezetimibe 10 mg tablet (Zetia) 10 mg PO DAILY #30 tabs 12/17/20 07/15/24 Rx empagliflozin 10 mg tablet 10 mg PO DAILY 02/09/23 07/15/24 History (Jardiance) sacubitril 24 mg-valsartan 26 mg 1 tablet PO BID 02/09/23 07/15/24 History tablet (Entresto) inhalational spacing device (Space #1 ea 04/26/23 07/15/24 Rx Chamber) thiamine HCl (vitamin B1) 100 mg 100 mg PO DAILY #100 tabs 06/16/23 07/15/24 Rx tablet budesonide 160 mcg-glycopyr 9 See Rx Instructions .Route 11/03/23 07/15/24 Rx mcg-formot 4.8 mcg/actuation HFA .COMPLEX #10.7 grams inhaler (Breztri Aerosphere) ipratropium bromide 21 mcg (0.03 See Rx Instructions .Route 02/15/24 07/15/24 Rx %) nasal spray .COMPLEX #30 mL omeprazole 20 mg tablet,delayed 20 mg PO DAILY #90 tabs 06/04/24 07/15/24 Rx release albuterol sulfate 90 mcg/actuation 1 inh inhalation Q4H #8.5 grams 06/07/24 07/15/24 Rx aerosol inhaler fluticasone propionate 50 1 spray intranasal BID PRN nasal 06/11/24 07/15/24 History mcg/actuation nasal congestion spray,suspension spironolactone 25 mg tablet 25 mg PO DAILY 06/11/24 07/15/24 History ferrous sulfate 325 mg (65 mg 325 mg PO DAILY 07/15/24 07/15/24 History iron) tablet (FeroSul) tramadol 50 mg tablet 50 mg PO Q6H PRN pain 07/15/24 07/15/24 History Allergies Allergy/AdvReac Type Severity Reaction Status Date / Time roflumilast (From [facility]) Allergy Unknown Hives Verified 07/15/24 13:56 morphine AdvReac Unknown Nausea Verified 07/15/24 13:56 Vital Signs Vital Signs - 24 hr 07/15/24 13:40 07/15/24 13:46 07/15/24 13:48 Temperature 98.4 F Pulse Rate 118 H Respiratory Rate 35 H Blood Pressure 140/91 H Pulse Oximetry 94 95 97 Oxygen Delivery Room Air Nasal Cannula Nasal Cannula Oxygen Flow Rate 2 2 Exam Narrative: General: well appearing, appears stated age. HEENT: normocephalic, atraumatic. Mucous membranes moist. EOMI, PERRLA, bilateral sclera anicteric, no conjunctival injection. Neck supple without JVD, lymphadenopathy, or bruit. Respiratory: Diminished right-sided. No rales/rhonic/wheezes. Chest pain on palpation Cardiovascular: Regular rate and rhythm, normal S1-S2 upon ascultation. No murmurs, rubs, or clicks. PMI is nondisplaced, capillary refill less than 3 second. Abdomen: Soft, round, no pulsatile masses, nondistended and nontender. No rebound, no guarding. No CVA tenderness, no hepatosplenomegaly. Bowel sounds present to all four quadrants. No high pitch or tinkling sounds, resonant to percussion. Extremities: No cyanosis, clubbing, or edema present. Pulses are palpable 2/2. Active ROM to all four extremities. Neuro: Alert and orientated x 4. PERRLA. Cranial nerves 2-12 intact without focal deficit. Skin: Warm, dry, and intact, without rash, erythema, or lesion. Psych: pleasant, cooperative, normal speech, normal affect, no hallucinations, no dysarthia H&P: Results Labs Labs: Short CBC 07/15/24 Range/Units 13:56 WBC 19.4 H (4.5-10.0) K/mm3 Hgb 10.3 L (12.0-15.0) g/dL Hct 32.7 L (37.0-47.0) % Plt Count 707 H D (150-375) k/mm3 BMP 07/15/24 13:56 Sodium 135 L Potassium 3.2 L Chloride 99 Carbon Dioxide 26 BUN 10 Creatinine 0.42 L Glucose 77 Calcium 8.3 L Cardiac Enzymes 07/15/24 Range/Units 13:56 Troponin I < 0.012 (0.000-0.034) ng/mL Liver Function 07/15/24 Range/Units 13:56 Total Bilirubin 1.5 H (0.2-1.3) mg/dL AST 22 (14-36) U/L ALT 17 (6-35) U/L Alkaline Phosphatase 88 (38-126) U/L Albumin 2.9 L (3.5-5.1) g/dL Assessment and Plan Assessment and plan (1) Fall: Code(s): W19.XXXA - Unspecified fall, initial encounter Status: Acute Assessment and Plan: Moderate spinal canal stenosis at the level of L4-5 with bilateral narrowing of the foramina and highly suggestive right nerve root compression. MRI evaluation advised. No lower extremity deficits, can follow-up outpatient Patient states that she has had several falls PT OT (2) Acute pain: Code(s): R52 - Pain, unspecified Status: Acute Assessment and Plan: Possibly from rib fractures or pneumonia, chest pain on palpation Scheduled Tylenol, gabapentin and lidocaine P.r.n. oxycodone (3) Pneumonia: Code(s): J18.9 - Pneumonia, unspecified organism Status: Acute Assessment and Plan: Community-acquired Azithromycin, Unasyn and Rocephin given in ED Continue antibiotics azithromycin and Rocephin (4) Pleural effusion on right: Code(s): J90 - Pleural effusion, not elsewhere classified Status: Acute Assessment and Plan: Pleural effusion versus hemothorax Patient will likely benefit from a thoracentesis or chest tube Hold Lovenox (5) COPD (chronic obstructive pulmonary disease): Qualifiers: COPD type: unspecified COPD Qualified Code(s): J44.9 - Chronic obstructive pulmonary disease, unspecified Code(s): J44.9 - Chronic obstructive pulmonary disease, unspecified Status: Acute Assessment and Plan: Home inhalers Steroids starting incase is exacerbation (6) Primary hypertension: Code(s): I10 - Essential (primary) hypertension Status: Acute Assessment and Plan: Continue home med (7) Hyperlipidemia: Code(s): E78.5 - Hyperlipidemia, unspecified Status: Acute Assessment and Plan: Continue home med (8) CAD (coronary artery disease): Code(s): I25.10 - Atherosclerotic heart disease of [place] coronary artery without angina pectoris Status: Acute Assessment and Plan: Continue Entresto and Jardiance (9) Lung nodule: Code(s): R91.1 - Solitary pulmonary nodule Status: Acute Assessment and Plan: Unchanged from last CT (10) Dilated cbd, acquired: Code(s): K83.8 - Other specified diseases of biliary tract Status: Acute Assessment and Plan: Denies right upper quadrant pain No need for surgical or GI consult at this time Quality VTE Prophylaxis VTE prophylaxis: mechanical ordered Hospitalist MIPS Advance Care Plan I have confirmed that the patient's Advanced Care Plan is present, code status is documented, or surrogate decision maker is listed in patient medical record.: Yes Medication Reconciliation I have utilized all available resources to obtain, update and review the patients current medications (includes all prescriptions, OTC, herbals, cannabis, and nutritional supplements).: Yes
--- NOTE | 2024-07-15 17:31 | ECG_ITS ---
Test Date: 2024-07-16 07:04:08 Measurements Intervals [place] Rate: 123 P: 0 [place]: 0 QRS: 210 QRSD: 134 T: 89 QT: 358 QTc: 514 Interpretive Statements ATRIAL FIBRILLATION WITH RAPID VENTRICULAR RESPONSE WITH TRANSITION TO SINUS BEATS INTRAVENTRICULAR CONDUCTION DELAY [130+ ms QRS DURATION] ANTEROLATERAL MYOCARDIAL INFARCTION , OF INDETERMINATE AGE [40+ ms Q WAVE IN I/aVL/V3-V6] Compared to ECG 07/15/2024 18:52:23 Sinus tachycardia no longer present Electronically Signed On 07-17-2024 14:18:06 CDT by Kortney Farley M.D.
[2024-07-15] MEDS: IPRATROPIUM 0.5 MG/ALBUTEROL SULFATE 2.5 MG AMPUL.NEB 3 ML INHALATION ×2 (17:36→21:16)
[2024-07-15] MEDS: AZITHROMYCIN 500 MG/NS 250 ML 500 MG/250 ML BAG 250 MG IVPB (17:51)
--- NOTE | 2024-07-15 17:53 | PC.NURSE ---
Dinner tray ordered for pt.
--- NOTE | 2024-07-15 18:40 | PC.NURSE ---
Ashley7 Attempted to call 2nd medical RN for questions, secretary to the vice president states the RN is in another patients room and the charge nurse is unavailable for report. ED billposting supervisor Darlene aware.
--- NOTE | 2024-07-15 18:48 | ECG_ITS ---
Test Date: 2024-07-15 18:52:23 Measurements Intervals [place] Rate: 118 P: 56 [place]: 92 QRS: -23 QRSD: 142 T: 0 QT: 376 QTc: 527 Interpretive Statements SINUS TACHYCARDIA WITH SHORT OR INTERVAL WITH FREQUENT SUPRAVENTRICULAR PREMATURE COMPLEXES INTRAVENTRICULAR CONDUCTION DELAY [130+ ms QRS DURATION] Compared to ECG 07/15/2024 13:49:12 Short OR interval now present Atrial fibrillation no longer present Electronically Signed On 07-17-2024 14:11:04 CDT by Kortney Farley M.D.
--- OUTSIDE RECORDS SUMMARY | 2024-07-15 20:08 | XMS_ITS | Clinical Summary ---
Author Organization [facility] [address] Address [address] [place] [address] Care Team Providers Care Civil Engineer In Training Name Role Phone Nu Shirley MD Primary Care Provider [phone] Allergies Active Allergy Reactions Criticality Noted Date [...] (NSTEMI) 06/23/2017 Coronary artery disease invo lving [place] coronary artery of [place] heart without angina pectoris 06/23/2017 Concussion with [...] consider Prolia. She should continue calcium of 4418-1074 mg per day through dietary intake or [...] this time. She should continue calcium of 0584-4945 mg per day through dietary intake or [...] has improved. She should continue calcium of 1466-7863 mg per day through dietary intake or supplements and vitamin D 2000 IU per day get IV Reclast again Assessment & Plan (11/23/2018 4:00 PM CDT): In summary, Ms. GARSIA has osteoporosis that is likely multifactorial secondary to tobacco use and family history of osteoporosis and advanced age. Her bone density has improved. She should continue calcium of 9248-8463 mg per day through dietary intake or supplements and vitamin D 2000 IU per day get IV Reclast again. Assessment & Plan (10/27/2017 12:06 PM CDT): In summary, Ms. GARSIA has osteoporosis that is likely multifactorial secondary to tobacco use and family history of osteoporosis and advanced age. She's being treated with calcium of 4666-5017 mg per day through dietary intake or [...] on file Legal Sex Female 4:14 AM SUGAR PLANTATION MANAGER Gender Identity Female 08/11/2017 1:49 PM CDT Sexual Orientation Not on file Obstetrics History Last Filed Vital Signs Vital Sign Reading Time Taken Comments Blood Pressure 127/65 03/10/2024 10:49 AM SUGAR PLANTATION MANAGER Pulse 94 03/10/2024 10:49 AM SUGAR PLANTATION MANAGER Temperature 36.7 C (98.1 F) 03/10/2024 10:49 AM SUGAR PLANTATION MANAGER Respiratory Rate 20 03/10/2024 10:49 AM SUGAR PLANTATION MANAGER Oxygen Saturation 97% 03/10/2024 10:49 AM SUGAR PLANTATION MANAGER Inhaled Oxygen Concentration - - Weight 60.8 kg (134 lb 1.6 oz) 03/10/2024 10:49 AM SUGAR PLANTATION MANAGER Height 165.1 cm (5' 5 ) 03/10/2024 10:49 AM SUGAR PLANTATION MANAGER Body Mass Index 22.32 03/10/2024 10:49 AM SUGAR PLANTATION MANAGER Plan of Treatment Health Maintenance Due Date [...] Completed 07/05/2023 Medical Devices Implanted Type Area Pm Head Cook Device Identifier Shelf Expiration Date Model / Serial / Lot [facility] Device Closure Vascade Od5 Fr Femoral Artery [id number] - [id number] Implanted:Qty: 1 on 03/31/2023 by Miguel Mccloud MD at [facility] 12/02/2024 [id number] / / [id number] Procedures Procedure Name Priority Date/Time Associated Diagnosis Comments HEPATITIS PANEL, ACUTE Routine 07/05/2023 9:55 AM CDT Acid phosphatase elevated Fatigue Hypopotassemia DEXA TBS AXIAL SKELETON BONE DENSITY 1 OR MORE SITES Schedule Routine, Read Routine (OP Routine) 01/11/2023 10:31 AM SUGAR PLANTATION MANAGER Age-related osteoporosis without current pathological fracture from [...] Hep B core IgM Nonreactive Nonreactive [facility] Comment: Interpretive Data If HepB Core IgM Ab is reported as Equivocal, a new sample should be drawn in two weeks for testing. Current interpretive data was last revised on 19. Hep C Ab Nonreactive Nonreactive [facility] Comment: Interpretive Data Nonreactive: Antibodies [...] revised on 2019. HepBsAg Nonreactive Nonreactive [facility] Blood Venous blood specimen / Unknown 07/05/2023 9:55 AM CDT 07/05/2023 3:12 PM CDT Narrative [facility] - 07/05/2023 5:04 PM CDT Fax results to Dr Nu Shirley [phone] us Nu Shirley MD LAB MICROBIOLOGY - GENERAL GWEN UMANZOR Final Result [facility] [address] [facility] [place] [address] * Dexa TBS Axial Skeleton Bone Density 1 or more sites (01/11/2023 10:31 AM SUGAR PLANTATION MANAGER) Anatomical Region Laterality Modality Wrist, Body N/A Radiographic Batsheva ging Narrative 01/11/2023 4:22 PM SUGAR PLANTATION MANAGER Patient Name: Oralia Garsia Date of : 1950 Date of scan: 01/11/2023 Bone mineral density was performed on a [employer] Discovery Densitometer. Based on machine cross-calibration and [...] by the International Society of Clinical Densitometry. [id number] Salud John MD IMG DXA PROCEDURES Final Re sult from Last 3 Months or Most Recently Relevant to Health Maintenance Insurance [facility] MEDICARE [facility] MEDICARE [employer] MEDICARE Care Teams Civil Engineer In Training Relationship Specialty Start Date End Date uN Sihrley MD PCP - General Family Medicine 01/14/21
--- OUTSIDE RECORDS SUMMARY | 2024-07-15 20:08 | XMS_ITS | Clinical Summary ---
Author Organization [facility] Address [address] [place] [id number] Care Team Providers Care Car Rental Sales Assistant Name Role Phone Unavailable Primary Care Provider [...]
--- OUTSIDE RECORDS SUMMARY | 2024-07-15 20:08 | XMS_ITS | Encounter Summary ---
Author Organization [facility] Address [address] [place] [address] Care Team Providers Care Top Executive Name Role Phone Nu Shirley MD Primary Care Provider [phone] Encounter Details Date Type Department Care Team (Late st Contact Info) Description 07/14/2024 11:59 PM CDT Anesthesia Event [facility] Anesthesia [address] [place] [address] Chantale Anglin, [facility] [address] [place] [address] Anesthesia Record Procedure Summary Procedure Name [...] Description 07/18/2024 11:45 AM CDT Office Visit [facility] Cardiovas and Thor Surg at [facility] [address] [place] [address] Tray Cerna MD [address] [place] [address] 07/18/2024 1:00 PM CDT Hospital Encounter [facility] [address] [place] [address] 08/14/2024 1:00 PM CDT Office Visit [facility] Oncology and Hematology - [place] [address] [place] [id number] Suhail Luis MD [address] [facility] [address] [place] [address] documented as of this encounter Visit Diagnoses Not on filedocumented in this encounter Care Teams Top Executive Relationship Specialty Start Date End Date Nu Shirley MD [address] [place] [address] PCP - General Family Practice 07/18/23 documented as of this encounter
--- OUTSIDE RECORDS SUMMARY | 2024-07-15 20:08 | XMS_ITS | Clinical Summary ---
Author Organization Unknown Care Team Providers Care Information Clerk Name Role Phone DAVE MUJICA [id number]/ INTERSTATE, SAIDA Unavailab le Unavailable KURT RN, GAVI Unavailable Unavailbharti BREWER PT, JAYASHREE Unavailable Unavailable PATRICIA OT, VINCENT Unavailable Unavailable KYA REYESN, LATOSHA Unavailable Unavailable Payers Payer Name Policy Type Policy Number Effective Date Expira tion Date [facility] [id number] Problems Condition Name Condition Details Condition Category [...] PHYSICIANS . RN TO OBSERVE AND ASSESS, COMMUNITY HEALTH DIRECTOR/WIND TURBINE INSTALLER TO OBSERVE FOR RISK FOR FALLS AND INSTRUCT IN FALL PREVENTION, HOME SAFETY, MEDICATION MANAGEMENT, INFECTION PREVENTION, AND NUTRITION MANAGEMENT. RN/COMMUNITY HEALTH DIRECTOR/WIND TURBINE INSTALLER NURSE MAY PERFORM O2 SATURATION LEVEL ON ADMISSION AND PRN FOR EVERY VISIT FOR RN TO ASSESS/COMMUNITY HEALTH DIRECTOR TO OBSERVE PATIENT, WITH NOTIFICATION TO THE PHYSICIAN IF SATURATION IS 90% IN THE ABSENCE OF MORE SPECIFIC PARAMETERS FROM THE PHYSICIAN. AGENCY MAY PERFORM A RESUMPTION OF CARE VISIT FOLLOWING ANY HOSPITAL ADMISSION. RN/COMMUNITY HEALTH DIRECTOR/WIND TURBINE INSTALLER TO MONITOR CO-MORBID CONDITIONS LISTED ON THE PLAN OF CARE AND ANY NEW CONDITIONS THAT PRESENT THEMSELVES DURING THIS EPISODE TO IDENTIFY CHANGES AND INTERVENE TO MINIMIZE COMPLICATIONS. [code = RN TO OBSERVE, ASSESS, EVALUATE, AND DEVELOP AN INDIVIDUALIZED PLAN OF CARE. AGENCY MAY ACCEPT ORDERS FROM CONSULTING PHYSICIANS . RN TO OBSERVE AND ASSESS, COMMUNITY HEALTH DIRECTOR/WIND TURBINE INSTALLER TO OBSERVE FOR RISK FOR FALLS AND INSTRUCT IN FALL PREVENTION, HOME SAFETY, MEDICATION MANAGEMENT, INFECTION PREVENTION, AND NUTRITION MANAGEMENT. RN/COMMUNITY HEALTH DIRECTOR/WIND TURBINE INSTALLER NURSE MAY PERFORM O2 SATURATION LEVEL ON ADMISSION AND PRN FOR EVERY VISIT FOR RN TO ASSESS/COMMUNITY HEALTH DIRECTOR TO OBSERVE PATIENT, WITH NOTIFICATION TO THE PHYSICIAN IF SATURATION IS 90% IN THE ABSENCE OF MORE SPECIFIC PARAMETERS FROM THE PHYSICIAN. AGENCY MAY PERFORM A RESUMPTION OF CARE VISIT FOLLOWING ANY HOSPITAL ADMISSION. RN/COMMUNITY HEALTH DIRECTOR/WIND TURBINE INSTALLER TO MONITOR CO-MORBID CONDITIONS LISTED ON THE PLAN OF CARE AND ANY NEW CONDITIONS THAT PRESENT THEMSELVES DURING THIS EPISODE TO IDENTIFY CHANGES AND INTERVENE TO MINIMIZE COMPLICATIONS.] Future Scheduled Test COPD MONIT ORING RN/WIND TURBINE INSTALLER/COMMUNITY HEALTH DIRECTOR TO MONITOR FOR SIGNS AND SYMPTOMS OF COPD EXACERBATION, MONITOR FOR ADHERENCE TO MEDICATION AND COPD MANAGEMENT. [code = COPD MONITORING RN/WIND TURBINE INSTALLER/COMMUNITY HEALTH DIRECTOR TO MONITOR FOR SIGNS AND SYMPTOMS OF COPD EXACERBATION, MONITOR FOR ADHERENCE TO MEDICATION AND COPD MANAGEMENT.] Future Scheduled Test RISK FOR H OSPITALIZATION; RN TO ASSESS/TEACH, WIND TURBINE INSTALLER/COMMUNITY HEALTH DIRECTOR TO OBSERVE/TEACH PATIENT/CAREGIVER ON RISK FOR HOSPITALIZATION/EMERGENCY ROOM VISITS, TEACH SIGNS AND SYMPTOMS THAT PUT PATIENT AT RISK, WHEN TO NOTIFY NURSE/PHYSICIAN OF COMPLICATIONS/DECLINE, AND WHEN TO CALL 911. [code = RISK FOR HOSPITALIZATION; RN TO ASSESS/TEACH, WIND TURBINE INSTALLER/COMMUNITY HEALTH DIRECTOR TO OBSERVE/TEACH PATIENT/CAREGIVER ON RISK FOR HOSPITALIZATION/EMERGENCY ROOM VISITS, TEACH SIGNS AND SYMPTOMS THAT PUT PATIENT AT RISK, WHEN TO NOTIFY NURSE/PHYSICIAN OF COMPLICATIONS/DECLINE, AND WHEN TO CALL 911.] Future Scheduled Test CARDIOVASC ULAR SYSTEM; RN TO ASSESS/TEACH, COMMUNITY HEALTH DIRECTOR/WIND TURBINE INSTALLER TO OBSERVE/TEACH RELATED TO ALTERED CARDIOVASCULAR STATUS TO MINIMIZE COMPLICATIONS AND REDUCE HOSPITALIZATION. [code = CARDIOVASCULAR SYSTEM; RN TO ASSESS/TEACH, COMMUNITY HEALTH DIRECTOR/WIND TURBINE INSTALLER TO OBSERVE/TEACH RELATED TO ALTERED CARDIOVASCULAR STATUS TO MINIMIZE COMPLICATIONS AND REDUCE HOSPITALIZATION.] Future Scheduled Test HYPERTENSI ON MANAGEMENT; RN TO ASSESS AND TEACH, COMMUNITY HEALTH DIRECTOR/WIND TURBINE INSTALLER TO OBSERVE AND TEACH WARNING SIGNS AND SYMPTOMS TO AVOID HOSPITALIZATION. [code = HYPERTENSION MANAGEMENT; RN TO ASSESS AND TEACH, COMMUNITY HEALTH DIRECTOR/WIND TURBINE INSTALLER TO OBSERVE AND TEACH WARNING SIGNS AND SYMPTOMS TO AVOID HOSPITALIZATION.] Future Scheduled Test RESPIRATOR Y SYSTEM MANAGEMENT; RN TO ASSESS AND TEACH, COMMUNITY HEALTH DIRECTOR/WIND TURBINE INSTALLER TO OBSERVE AND TEACH RELATED TO ALTERED RESPIRATORY STATUS TO MINIMIZE COMPLICATIONS AND REDUCE HOSPITALIZATION. [code = RESPIRATORY SYSTEM MANAGEMENT; RN TO ASSESS AND TEACH, COMMUNITY HEALTH DIRECTOR/WIND TURBINE INSTALLER TO OBSERVE AND TEACH RELATED TO ALTERED RESPIRATORY STATUS TO MINIMIZE COMPLICATIONS AND REDUCE HOSPITALIZATION.] Future Scheduled Test COPD MANAG EMENT; RN TO ASSESS AND TEACH, COMMUNITY HEALTH DIRECTOR/WIND TURBINE INSTALLER TO OBSERVE AND TEACH SIGNS/SYMPTOMS OF COPD EXACERBATION AND PROVIDE EARLY INTERVENTIONS TO MINIMIZE RISK OF HOSPITALIZATION. RN/COMMUNITY HEALTH DIRECTOR/WIND TURBINE INSTALLER TO INSTRUCT ON SELF-CARE MANAGEMENT INCLUDING BREATHING TECHNIQUES, AIRWAY CLEARANCE, AND PROPER USE OF COPD MEDICATIONS. RN TO ASSESS AND TEACH, COMMUNITY HEALTH DIRECTOR/WIND TURBINE INSTALLER TO OBSERVE AND TEACH PATIENT/CAREGIVER ABILITY TO MONITOR AND RECORD VITAL SIGNS INCLUDING PULSE OXIMETRY AND BLOOD PRESSURE. PULSE OXIMETER AND BP MONITOR TO BE PROVIDED IF NEEDED . [code = COPD MANAGEMENT; RN TO ASSESS AND TEACH, COMMUNITY HEALTH DIRECTOR/WIND TURBINE INSTALLER TO OBSERVE AND TEACH SIGNS/SYMPTOMS OF COPD EXACERBATION AND PROVIDE EARLY INTERVENTIONS TO MINIMIZE RISK OF HOSPITALIZATION. RN/COMMUNITY HEALTH DIRECTOR/WIND TURBINE INSTALLER TO INSTRUCT ON SELF-CARE MANAGEMENT INCLUDING BREATHING TECHNIQUES, AIRWAY CLEARANCE, AND PROPER USE OF COPD MEDICATIONS. RN TO ASSESS AND TEACH, COMMUNITY HEALTH DIRECTOR/WIND TURBINE INSTALLER TO OBSERVE AND TEACH PATIENT/CAREGIVER ABILITY TO MONITOR AND RECORD VITAL SIGNS INCLUDING PULSE OXIMETRY AND BLOOD PRESSURE. PULSE OXIMETER AND BP MONITOR TO BE PROVIDED IF NEEDED .] Future Scheduled Test ASTHMA MAN AGEMENT; RN TO ASSESS AND TEACH, COMMUNITY HEALTH DIRECTOR/WIND TURBINE INSTALLER TO OBSERVE AND TEACH ASTHMA MANAGEMENT AND PROVIDE EARLY INTERVENTIONS TO MINIMIZE RISK OF HOSPITALIZATION [code = ASTHMA MANAGEMENT; RN TO ASSESS AND TEACH, COMMUNITY HEALTH DIRECTOR/WIND TURBINE INSTALLER TO OBSERVE AND TEACH ASTHMA MANAGEMENT AND PROVIDE EARLY INTERVENTIONS TO MINIMIZE RISK OF HOSPITALIZATION] Future Scheduled Test PAIN MANAG EMENT; RN TO ASSESS AND TEACH, WIND TURBINE INSTALLER/COMMUNITY HEALTH DIRECTOR TO OBSERVE AND TEACH AND PROVIDE EDUCATION ON PAIN MANAGEMENT TECHNIQUES. [code = PAIN MANAGEMENT; RN TO ASSESS AND TEACH, WIND TURBINE INSTALLER/COMMUNITY HEALTH DIRECTOR TO OBSERVE AND TEACH AND PROVIDE EDUCATION ON PAIN MANAGEMENT TECHNIQUES.] Future Scheduled Test PRN VISITS ; NUMBER OF RN/COMMUNITY HEALTH DIRECTOR/WIND TURBINE INSTALLER VISITS: 1 RN/COMMUNITY HEALTH DIRECTOR/WIND TURBINE INSTALLER TO PERFORM: RESPIRATORY MANAGEMENT FOR THE FOLLOWING REASONS: COMPLICATIONS [code = PRN VISITS; NUMBER OF RN/COMMUNITY HEALTH DIRECTOR/WIND TURBINE INSTALLER VISITS: 1 RN/COMMUNITY HEALTH DIRECTOR/WIND TURBINE INSTALLER TO PERFORM: RESPIRATORY MANAGEMENT FOR THE FOLLOWING [...] TION MANAGEMENT; RN TO ASSESS AND OBSERVE, COMMUNITY HEALTH DIRECTOR/WIND TURBINE INSTALLER TO OBSERVE FALL RISK FACTORS AND EDUCATE PATIENT/CAREGIVER ON STRATEGIES TO MINIMIZE THE RISK OF FALLING. [code = FALL REDUCTION MANAGEMENT; RN TO ASSESS AND OBSERVE, COMMUNITY HEALTH DIRECTOR/WIND TURBINE INSTALLER TO OBSERVE FALL RISK FACTORS AND EDUCATE [...] OF DAILY LIVING (OT/DARRYL) BATH/SHOWER TRANSFER (OT/DARRYL) OT/CORDWAINER TO MONITOR AND EDUCATE ON OXYGEN SATURATION DURING ADLS/IADLS, NOTIFY PHYSICIAN AND/OR THE RN CLINICAL CUSTOMER ACQUISITION MANAGER FOR PHYSICIAN NOTIFICATION AND IF O2 SATS BELOW 90% AFTER 10 MIN OF REST. OT / CORDWAINER TO IDENTIFY FALL RISK FACTORS; EDUCATE THE PATIENT/CAREGIVER ON WAYS TO REDUCE FALL RISK FACTORS AND ESTABLISH HOME EXERCISE PROGRAM TO MINIMIZE FALL RISK. MAY TEACH THE PATIENT FLOOR RECOVERY WHEN CLINICALLY APPROPRIATE. OT/DARRYL TO EDUCATE ON HYPERTENSION SELF-MANAGEMENT OT/CORDWAINER TO EDUCATE ON COPD SELF-MANAGEMENT [code = AGENCY MAY PERFORM A RESUMPTION OF CARE VISIT FOLLOWING ANY HOSPITAL ADMISSION. OT TO EVALUATE, OBSERVE / ASSESS, AND MONITOR, CORDWAINER TO OBSERVE AND MONITOR, PROVIDE SKILLED THERAPEUTIC INTERVENTION, ACTIVITY, EDUCATION, AND TRAINING TO ADDRESS SAFETY AND INDEPENDENCE OF ADLS AND FUNCTIONAL TRANSFERS IN HOME ENVIRONMENT. BATHING/SHOWERING (OT/CORDWAINER) ACTIVITIES OF DAILY LIVING (OT/CORDWAINER) BATH/SHOWER TRANSFER (OT/DARRYL) OT/DARRYL TO MONITOR AND EDUCATE ON OXYGEN SATURATION DURING ADLS/IADLS, NOTIFY PHYSICIAN AND/OR THE RN CLINICAL CUSTOMER ACQUISITION MANAGER FOR PHYSICIAN NOTIFICATION AND IF O2 SATS BELOW 90% AFTER 10 MIN OF REST. OT / CORDWAINER TO IDENTIFY FALL RISK FACTORS; EDUCATE THE PATIENT/CAREGIVER ON WAYS TO REDUCE FALL RISK FACTORS AND ESTABLISH HOME EXERCISE PROGRAM TO MINIMIZE FALL RISK. MAY TEACH THE PATIENT FLOOR RECOVERY WHEN CLINICALLY APPROPRIATE. OT/CORDWAINER TO EDUCATE ON HYPERTENSION SELF-MANAGEMENT OT/CORDWAINER TO EDUCATE ON COPD SELF-MANAGEMENT] Future Scheduled Test AGENCY MAY PERFORM A RESUMPTION OF CARE VISIT FOLLOWING ANY HOSPITAL ADMISSION. PT TO EVALUATE, OBSERVE / ASSESS, AND MONITOR, INTRANET DEVELOPER TO OBSERVE AND MONITOR, PROVIDE SKILLED THERAPEUTIC INTERVENTION, ACTIVITY, EDUCATION, AND TRAINING TO ADDRESS; PT/INTRANET DEVELOPER TO PROVIDE GAIT TRAINING FOR IMPROVED MOBILITY AND /OR TO NORMALIZE GAIT PATTERN NEUROMUSCULAR RE-EDUCATION / BALANCE / POSTURAL CONTROL (PT) THERAPEUTIC EXERCISES AND ESTABLISHING A HOME EXERCISE PROGRAM (PT/INTRANET DEVELOPER) PT/INTRANET DEVELOPER TO PROVIDE STAIR TRAINING SIT TO/FROM STAND TRANSFERS (PT/INTRANET DEVELOPER) PT / INTRANET DEVELOPER TO MONITOR AND EDUCATE ON OXYGEN SATURATION DURING ADLS/IADLS, NOTIFY PHYSICIAN AND/OR THE RN CLINICAL CUSTOMER ACQUISITION MANAGER FOR PHYSICIAN NOTIFICATION AND IF O2 SATS BELOW PHYSICIAN ORDERED PARAMETERS AFTER 10 MIN OF REST PT / INTRANET DEVELOPER TO EDUCATE ON COPD SELF-MANAGEMENT PT/INTRANET DEVELOPER TO IDENTIFY FALL RISK FACTORS; EDUCATE THE PATIENT/CAREGIVER ON WAYS TO REDUCE FALL RISK FACTORS AND ESTABLISH HOME EXERCISE PROGRAM TO MINIMIZE FALL RISK. MAY TEACH THE PATIENT FLOOR RECOVERY WHEN CLINICALLY APPROPRIATE [code = AGENCY MAY PERFORM A RESUMPTION OF CARE VISIT FOLLOWING ANY HOSPITAL ADMISSION. PT TO EVALUATE, OBSERVE / ASSESS, AND MONITOR, INTRANET DEVELOPER TO OBSERVE AND MONITOR, PROVIDE SKILLED THERAPEUTIC INTERVENTION, ACTIVITY, EDUCATION, AND TRAINING TO ADDRESS; PT/INTRANET DEVELOPER TO PROVIDE GAIT TRAINING FOR IMPROVED MOBILITY AND /OR TO NORMALIZE GAIT PATTERN NEUROMUSCULAR RE-EDUCATION / BALANCE / POSTURAL CONTROL (PT) THERAPEUTIC EXERCISES AND ESTABLISHING A HOME EXERCISE PROGRAM (PT/INTRANET DEVELOPER) PT/INTRANET DEVELOPER TO PROVIDE STAIR TRAINING SIT TO/FROM STAND TRANSFERS (PT/INTRANET DEVELOPER) PT / INTRANET DEVELOPER TO MONITOR AND EDUCATE ON OXYGEN SATURATION DURING ADLS/IADLS, NOTIFY PHYSICIAN AND/OR THE RN CLINICAL CUSTOMER ACQUISITION MANAGER FOR PHYSICIAN NOTIFICATION AND IF O2 SATS BELOW PHYSICIAN ORDERED PARAMETERS AFTER 10 MIN OF REST PT / INTRANET DEVELOPER TO EDUCATE ON COPD SELF-MANAGEMENT PT/INTRANET DEVELOPER TO IDENTIFY FALL RISK FACTORS; EDUCATE THE [...] End Date/Time Encounter Type Admission Type Attending [facility] Facility Care Department Encounter ID Discharge Date Discharge Status Discharge Condition Discharge Reason Percent Goals Met 2024-07-11 00:00:00 2024-09-08 00:00:00 Outpatient NEW ADMISSION GAVI HICKS [facility] [id number]
--- OUTSIDE RECORDS SUMMARY | 2024-07-15 20:08 | XMS_ITS | Referral Summary ---
Author Organization [facility] [id number] Address [address] [place] [address] Care Team Providers Care Lumber Sorter Machine Name Role Phone Nu Shirley MD Primary Care Provider [phone] Allergies Active Allergy Reactions Criticality Noted Date [...] 06/23/2017 Coronary artery disease invo [place]ving [place] coronary artery of [place] heart without angina pectoris 06/23/2017 Concussion with [...] consider Prolia. She should continue calcium of 8036-1154 mg per day through dietary intake or [...] this time. She should continue calcium of 0689-4402 mg per day through dietary intake or [...] has improved. She should continue calcium of 0541-8554 mg per day through dietary intake or supplements and vitamin D 2000 IU per day get IV Reclast again Assessment & Plan (11/23/2018 4:00 PM CDT): In summary, Ms. GARSIA has osteoporosis that is likely multifactorial secondary to tobacco use and family history of osteoporosis and advanced age. Her bone density has improved. She should continue calcium of 7507-1437 mg per day through dietary intake or supplements and vitamin D 2000 IU per day get IV Reclast again. Assessment & Plan (10/27/2017 12:06 PM CDT): In summary, Ms. GARSIA has osteoporosis that is likely multifactorial secondary to tobacco use and family history of osteoporosis and advanced age. She's being treated with calcium of 9974-2406 mg per day through dietary intake or [...] on file Legal Sex Female 4:14 AM TREE AND SHRUB TECHNICIAN Gender Identity Female 08/11/2017 1:49 PM CDT Sexual Orientation Not on file Last Filed Vital Signs Vital Sign Reading Time Taken Comments Blood Pressure 127/65 03/10/2024 10:49 AM TREE AND SHRUB TECHNICIAN Pulse 94 03/10/2024 10:49 AM TREE AND SHRUB TECHNICIAN Temperature 36.7 C (98.1 F) 03/10/2024 10:49 AM TREE AND SHRUB TECHNICIAN Respiratory Rate 20 03/10/2024 10:49 AM TREE AND SHRUB TECHNICIAN Oxygen Saturation 97% 03/10/2024 10:49 AM TREE AND SHRUB TECHNICIAN Inhaled Oxygen Concentration - - Weight 60.8 kg (134 lb 1.6 oz) 03/10/2024 10:49 AM TREE AND SHRUB TECHNICIAN Height 165.1 cm (5' 5 ) 03/10/2024 10:49 AM TREE AND SHRUB TECHNICIAN Body Mass Index 22.32 03/10/2024 10:49 AM TREE AND SHRUB TECHNICIAN Plan of Treatment Not on file Medical Devices Implanted Type Area Returned Materials Inspector Device Identifier Shelf Expiration Date Model / Serial / Lot [employer] Device Closure Vascade Od5 Fr Femoral Artery [id number] - [id number] Implanted:Qty: 1 on 03/31/2023 by Miguel Mccloud MD at [facility] [employer] 12/02/2024 [id number] / / [id number] Procedures Procedure Name Priority Date/Time Associated Diagnosis Comments HEPATITIS PANEL, ACUTE Routine 07/05/2023 9:55 AM CDT Acid phosphatase elevated Fatigue Hypopotassemia DEXA TBS AXIAL SKELETON BONE DENSITY 1 OR MORE SITES Schedule Routine, Read Routine (OP Routine) 01/11/2023 10:31 AM TREE AND SHRUB TECHNICIAN Age-related osteoporosis without current pathological fracture [...] 19. Hep B core IgM Nonreactive Nonreactive [facility] Comment: Interpretive Data If HepB Core IgM Ab is reported as Equivocal, a new sample should be drawn in two weeks for testing. Current interpretive data was last revised on 19. Hep C Ab Nonreactive Nonreactive [facility] Comment: Interpretive Data Nonreactive: Antibodies [...] last revised on 2019. HepBsAg Nonreactive Nonreactive [facility] Blood Venous blood specimen / Unknown 07/05/2023 9:55 AM CDT 07/05/2023 3:12 PM CDT Narrative [facility] - 07/05/2023 5:04 PM CDT Fax results to Dr Nu Shirley [phone] Nu Shirley MD LAB MICROBIOLOGY - [facility] Final Result [facility] [address] [place] [address] * Dexa TBS Axial Skeleton Bone Density 1 or more sites (01/11/2023 10:31 AM TREE AND SHRUB TECHNICIAN) Anatomical Region Laterality Modality Wrist, Body N/A Radiographic Batsheva ging Narrative 01/11/2023 4:22 PM TREE AND SHRUB TECHNICIAN Patient Name: Oralia Garsia Date of : 1950 Date of scan: 01/11/2023 Bone mineral density was performed on a Holo[employer]iv[employer] Discovery Densitometer. Based on machine cross-calibration and [...] by the International Society of Clinical Densitometry. [id number] Salud John MD IMG DXA PROCEDURES Final Re sult from Last 3 Months or Most Recently Relevant to Health Maintenance Insurance [facility] MEDICARE [employer] MEDICARE AET[employer] MEDICARE Care Teams Lumber Sorter Machine Relationship Specialty Start Date End Date Nu Shirley MD PCP - General Family Medicine 01/14/21
--- OUTSIDE RECORDS SUMMARY | 2024-07-15 20:08 | XMS_ITS | Clinical Summary ---
Author Organization [facility] Address [address] [place] [address] Care Team Providers Care Senior Corporate Strategy Manager Name Role Phone Nu Shirley MD Primary Care Provider [phone] Allergies Active Allergy Reactions Criticality Noted Date Comments Morphine Other (See Comments) ,Nausea and Vomiting Low 08/19/2014 sick sick Medications aspirin (ECOTRIN EC) 81 mg Tablet, Delayed Release (E.C.) Take 81 mg by mouth. Active Cholecalciferol, Vitamin D3, 10,000 unit Capsule Take 10,000 Units by mouth. Active omeprazole (PriLOSEC) 20 mg Tablet, Delayed Release (E.C.) Take by mouth. Active OTHER Lopeno Tail Mushroom 2 tablets daily . Active [...] 3 Active fluticasone propionate (FLONASE) 50 mcg/spray [place], Suspension nasal inhaler Administer 2 Sprays in [...] Description 07/14/2024 11:59 PM CDT Anesthesia Event [facility] Anesthesia [address] [place] [address] Chantale Anglin, TRAE 07/03/2024 External Device Data STL ABSTRACTION Provider, Abstract 07/03/2024 External Device Data STL ABSTRACTION Provider, Abstract 06/26/2024 External Device Data STL ABSTRACTION Provider, Abstract 06/26/2024 External Device Data STL ABSTRACTION Provider, Abstract 06/25/2024 6:13 PM CDT - 06/29/2024 12:20 PM CDT Hospital Encounter [facility] Oncology [address] [place] [address] Max Ennis MD [place], Mariya, MD [...] Description 07/18/2024 11:45 AM CDT Office Visit [facility] Cardiovas and Thor Surg at [facility] [address] [place] [address] Tray Cerna MD [address] [place] [address] 07/18/2024 1:00 PM CDT Hospital Encounter [facility] [address] [place] [id number] 08/14/2024 1:00 PM CDT Office Visit [facility] Oncology and Hematology - [place] [address] [place] [address] Suhail Luis MD [address] [place] [address] Health Maintenance Due Date Last [...] OR WO CAD Routine 02/13/2024 2:08 PM BOARD MIXER TENDER from Last 3 Months or Most Recently [...] the left chest. DICTATION LOCATION: Location - [facility] Procedure Note Alex Whipple MD - 06/28/2024 [...] in the left chest. DICTATION LOCATION: Location [address] [place] [address] Lucila K Irma ROVING TELLER DIAGNOSTIC IMAGING ORDERABL ES Final Result * TSH REFLEXIVE (06/28/2024 5:27 AM CDT) Pathologist [facility] TSH 0.99 0.27 - 4.20 uIU/mL 06/28/2024 11:[address] [facility] Blood Venipuncture / Unknown 06/28/2024 5:27 AM CDT 06/28/2024 6:21 AM CDT Cecily Rose MD CHEMISTRY ORDERABLES Final Resul t [employer] [facility]# [id number] [address] [facility] [address] * (ABNORMAL) CBC WITH DIFFERENTIAL (06/28/2024 5:27 AM CDT) Only the most recent of4 resultswithin the time period is included. Pathologist [facility] WBC 9.7 4.0 - 9.8 K/uL 06/28/2024 6:38 AM CDT [facility] RBC 2.21(L) 3.90 - 4.90 M/uL 06/28/2024 6:38 AM CDT [facility] HEMOGLOBIN 7.6(L) 11.8 - 14.8 g/dL 06/28/2024 6:38 AM CDT [facility] HEMATOCRIT 23.3(L) 35.5 - 44.0 % 06/28/2024 6:38 AM CDT [facility] MCV 105.4(H) 82.0 - 99.0 fL 06/28/2024 6:38 AM CDT [facility] MCH 34.4(H) 27.2 - 32.6 pg 06/28/2024 6:38 AM CDT [facility] MCHC 32.6 31.5 - 35.5 g/dL 06/28/2024 6:38 AM CDT [facility] RDW 12.7 11.5 - 14.5 % 06/28/2024 6:38 AM [facility] - [facility] RDW-STDEV 49.2(H) 37.1 - 48.7 fL 06/28/2024 6:38 AM [facility] PLATELETS 445(H) 140 - 350 K/uL 06/28/2024 6:38 AM [facility] MPV 9.6 9.3 - 12.4 fL 06/28/2024 6:38 AM [facility] NEUTROPHILS 75 % 06/28/2024 6:38 AM [facility] [employer] [facility] - . [facility] LYMPHOCYTES 12 % 06/28/2024 6:38 AM [facility] [employer] SERVICES - . [facility] MONOCYTES 11 % 06/28/2024 6:38 AM [facility] - . [facility] EOSINOPHILS 1 % 06/28/2024 6:38 AM [facility] SERVICES - . [facility] BASOPHILS 1 % 06/28/2024 6:38 AM [facility] - . [facility] IMMATURE GRANULOCYTES 1 % 06/28/2024 6:38 AM [facility] Comment:IG (Immature Granulo cyte) count includes Metamyelocytes, Myelocytes, and Promyelocytes NEUTROPHIL ABSOLUTE 7.27(H) 1.90 - 7.00 K/uL 06/28/2024 6:38 AM [facility] SERVICES - . [facility] LYMPHOCYTE ABSOLUTE 1.13 0.70 - 4.50 K/uL 06/28/2024 6:38 AM [facility] - . [facility] MONOCYTE ABSOLUTE 1.10 0.10 - 1.30 K/uL 06/28/2024 6:38 AM [facility] - . [facility] EOSINOPHIL ABSOLUTE 0.13 0.00 - 0.70 K/uL 06/28/2024 6:38 AM [facility] - . [facility] BASOPHILS ABSOLUTE 0.06 0.00 - 0.20 K/uL 06/28/2024 6:38 AM [facility] - . [facility] IMMATURE GRANULOCYTES ABSOLUTE 0.05(H) 0.00 - 0.03 K/uL 06/28/2024 6:38 AM [facility] Blood Venipuncture / Unknown 06/28/2024 5:27 AM CDT 06/28/2024 6:21 AM CDT us Iman Mckee MD HEMATOLOGY ORDERABLE S Final Result [facility] CLIA# [id number] [address] [facility] [place] [address] * (ABNORMAL) BASIC METABOLIC PANEL (06/28/2024 5:27 AM CDT) Only the most recent of3 resultswithin the time period is included. SODIUM 135(L) 136 - 145 mmol/L 06/28/2024 7:01 AM [facility] POTASSIUM 4.3 3.5 - 5.0 mmol/L 06/28/2024 7:01 AM [facility] CHLORIDE 102 98 - 107 mmol/L 06/28/2024 7:01 AM [facility] CO2 23 22 - 29 mmol/L 06/28/2024 7:01 AM [facility] CALCIUM 8.5(L) 8.6 - 10.2 mg/dL 06/28/2024 7:01 AM [facility] BUN 9 8 - 23 mg/dL 06/28/2024 7:01 AM [facility] CREATININE 0.64 0.51 - 0.95 mg/dL 06/28/2024 7:01 AM [facility] Comment:The GFR result is no t clinically significant on patients <18 or >70 years of age. GLUCOSE 80 74 - 99 mg/dL 06/28/2024 7:01 AM [facility] GFR >60 mL/min/1.7 3 sq meter 06/28/2024 7:01 AM [facility] Comment:eGFR calculated with 2020 CKD-EPI equation. Vegetarian diet, extremely high or low muscle mass, and may affect results. Cystatin C with Glomerular Filtration Rate is a suitable alternative for these patients. ANION GAP 10 8 - 16 mmol/L 06/28/2024 7:01 AM CDT [facility] Blood Venipuncture / Unknown 06/28/2024 5:27 AM CDT 06/28/2024 6:21 AM CDT Iman Mckee MD CHEMISTRY ORDERABLES Final Result Performing Organization Address [facility] Co de Phone Number [facility] CLIA# [id number] [address] [place] [address] * MANUAL DIFFERENTIAL (06/26/2024 11:09 AM CDT) PLATELET EST. Consistent w Count 06/26/2024 1:11 PM CDT [facility] ANISOCYTOSIS 1+ /hpf 06/26/2024 1:11 PM CDT [facility] MACROCYTES 1+ /hpf 06/26/2024 1:11 PM CDT [facility] HYPOCHROMIA 1+ /hpf 06/26/2024 1:11 PM CDT [facility] Blood Venipuncture / Unknown 06/26/2024 11:09 AM CDT 06/26/2024 11:27 AM CDT Iman Mckee MD HEMATOLOGY ORDERABLE S COM Final Result Performing Organization Address [facility] Co de Phone Number [facility] CLIA# [id number] [address] [place] [address] * (ABNORMAL) VITAMIN B12 AND FOLATE (06/25/2024 9:53 PM CDT) VITAMIN B12 >2,000(H) 232 - 1,245 pg/mL 06/25/2024 11:10 PM CDT [facility] Comment:It has been reported that between 5 to 10% of patients with values between 200 and 400 pg/mL may experience neuropsychiatric and hematologic abnormalities due to occult B12 deficiency. Less than 1% of patients with values above 400 pg/mL will have symptoms. FOLATE, SERUM 6.2 >4.5 ng/mL 06/25/2024 11:10 PM CDT [facility] Blood Venipuncture / Unknown 06/25/2024 9:53 PM CDT 06/25/2024 10:15 PM CDT Iman Mckee MD CHEMISTRY ORDERABLES Final Result [facility] CLIA# [id number] [address] [place] [address] * (ABNORMAL) IRON, TIBC, AND PERCENT SATURATION (06/25/2024 6:52 PM CDT) IRON 14(L) 37 - 145 ug/dL 06/25/2024 9:11 PM CDT [facility] TIBC 161(L) 250 - 450 ug/dL 06/25/2024 9:11 PM CDT [facility] IRON % SATURATION 9(L) 15 - 50 % 06/25/2024 9:11 PM CDT [facility] TRANSFERRIN 127(L) 200 - 360 mg/dL 06/25/2024 9:11 PM CDT [facility] Blood Venipuncture / Unknown 06/25/2024 6:52 PM CDT 06/25/2024 7:30 PM CDT Iman Mckee MD CHEMISTRY ORDERABLES Final Result [facility] CLIA# [id number] [address] [place], [place] [address] * (ABNORMAL) FERRITIN (06/25/2024 6:52 PM CDT) FERRITIN 282.0(H) 13.0 - 150.0 ng/mL 06/25/2024 9:11 PM CDT [facility] Blood Venipuncture / Unknown 06/25/2024 6:52 PM CDT 06/25/2024 7:30 PM CDT Iman Mckee MD CHEMISTRY ORDERABLES Final Result [facility] CLIA# [id number] [address] [facility] [place] [address] * (ABNORMAL) COMPREHENSIVE METABOLIC PANEL (06/25/2024 6:52 PM CDT) Pathologist [facility] SODIUM 136 136 - 145 mmol/L 06/25/2024 8:24 PM CDT [facility] POTASSIUM 3.6 3.5 - 5.0 mmol/L 06/25/2024 8:24 PM CDT [facility] CHLORIDE 100 98 - 107 mmol/L 06/25/2024 8:24 PM CDT [facility] CO2 25 22 - 29 mmol/L 06/25/2024 8:24 PM CDT [facility] CALCIUM 8.2(L) 8.6 - 10.2 mg/dL 06/25/2024 8:24 PM CDT [facility] BUN 11 8 - 23 mg/dL 06/25/2024 8:24 PM CDT [facility] CREATININE 0.76 0.51 - 0.95 mg/dL 06/25/2024 8:24 PM CDT [facility] Comment:The GFR result is no t clinically significant on patients <18 or >70 years of age. GLUCOSE 105(H) 74 - 99 mg/dL 06/25/2024 8:24 PM CDT [facility] TOTAL PROTEIN 5.3(L) 6.7 - 8.6 g/dL 06/25/2024 8:24 PM CDT [facility] - . [facility]ANY ALBUMIN 3.0(L) 3.5 - 5.2 g/dL 06/25/2024 8:24 PM [facility] BILIRUBIN TOTAL 0.2 0.2 - 1.1 mg/dL 06/25/2024 8:24 PM [facility] ALKALINE PHOSPHATASE 133(H) 35 - 104 U/L 06/25/2024 8:24 PM [facility] AST 33(H) <33 U/L 06/25/2024 8:24 PM [facility] ALT 42(H) <34 U/L 06/25/2024 8:24 PM [facility] GFR >60 mL/min/1.7 3 sq meter 06/25/2024 8:24 PM [facility] Comment:eGFR calculated with 2020 CKD-EPI equation. Vegetarian diet, extremely high or low muscle mass, and may affect results. Cystatin C with Glomerular Filtration Rate is a suitable alternative for these patients. ANION GAP 11 8 - 16 mmol/L 06/25/2024 8:24 PM [facility] Blood Venipuncture / Unknown 06/25/2024 6:52 PM CDT 06/25/2024 7:30 PM CDT Narrative [facility] - 06/25/2024 8:24 PM CDT Samples containing indocyanine green cause interferences on Total and/or Direct Bilirubin and must not be measured. Iman Mckee MD CHEMISTRY ORDERABLES Final Result [facility]# [id number] [address] [place] [address] * MAMMO DIAGNOSTIC UNI LEFT W OR WO CAD (02/13/2024 2:08 PM BOARD MIXER TENDER) Anatomical Region Laterality Modality Breast Left Mammography Suhail Luis MD MAMMO ORDERABLES Final Result from Last 3 Months or Most Recently Relevant to Health Maintenance Insurance Advance Directives For more information, please contact: [phone] * Full Code (Latest Code Status on File) Date Activated Date Inactivated Comments 06/25/2024 8:28 PM 06/29/2024 3:15 PM Care Teams Senior Corporate Strategy Manager Relationship Specialty Start Date End Date Nu Shirley MD [address] [place] [address] PCP - General Family Practice 07/18/23
--- OUTSIDE RECORDS SUMMARY | 2024-07-15 20:08 | XMS_ITS | Encounter Summary ---
Author Organization [facility] Address [address] [place] [address] Care Team Providers Care Chief Of Internal Medicine Name Role Phone Rafael Ruiz MD Primary Care Provider [phone] Encounter Details Date Type Department Care Team (Late st Contact Info) Description 12/12/2019 Lab Requisition [facility] DermPath Lab [address] [facility] [place] [address] Mireya Shahid MD [address] [facility] [address] [place] [address] Social History Tobacco Use Types Packs/Day Years Used Date Smoking Tobacco: Every Day Cigarettes Smokeless Tobacco: Never Alcohol Use Standard Drinks/Week Comments Yes 0.8 (1 standard drink = 0.6 oz p ure alcohol) Comments Unknown Sex and Gender Information Value Date Recorded Sex Assigned at Not on file Legal Sex Female 5:56 PM C 40A CREW CHIEF Gender Identity Not on file Sexual Orientation Not on file documented as of this encounter Plan of Treatment Not on file documented as of this encounter Procedures Procedure Name Priority Date/Time Associated Diagnosis Comments DERMATOPATHOLOGY Routine 12/11/2019 12:0 0 AM CDT documented in this encounter Results * DERMATOPATHOLOGY (12/11/2019 12:00 AM CDT) Case Report Dermatopathology Report Case: [id number] Authorizing Provider: Mireya Shahid MD Collected: 12/11/2019 12:00 AM Ordering Location: [facility] DermPath Lab Received: 12/12/2019 05:52 AM Pathologist: [...] characteristic determined by the Dermatopathology Laboratory at [facility], directed by Dr. Sabina [place]. These tests need not be, and therefore are not, approved by the [place] Food and Drug Administration. The tests are used for clinical purposes. Billing Codes Specimen Charges Stain Charges 75606 1 74021 1 0 5:41 PM CDT DERMATOPATHOLOGY LABORATORY Embedded Images 0 5:41 PM CDT DERMATOPATHOLOGY LABORATORY Pathology/Cytolog y TISSUE SPECIMEN FROM SKIN / Unknown 12/11/2019 12/12/2019 5:52 AM CDT Mireya Shahid MD LAB - PATHOLOGY/CYTOLOGY ORD ERABLES Final Result DERMATOPATHOLOGY LABORATORY [facility] - Department of Dermatology [facility] Medicine [address] [place] [address], [address] [phone] documented in this encounter Visit Diagnoses Not on filedocumented in this encounter Care Teams Chief Of Internal Medicine Relationship Specialty Start Date End Date Rafael Ruiz MD [place] [address] PCP - General 08/19/14 documented as of this encounter
--- OUTSIDE RECORDS SUMMARY | 2024-07-15 20:08 | XMS_ITS | Clinical Summary ---
Author Organization Unknown Care Team Providers Care Dialysis Nurse Name Role Phone DAVE MUJICA [id number]/ INTERSTATE, SAIDA Unavailab le Unavailable KURT RN, GAVI Unavailable Unavailbharti BREWER PT, JAYASHREE Unavailable Unavailable PATRICIA OT, VINCENT Unavailable Unavailable KYA REYESN, LATOSHA Unavailable Unavailable Payers Payer Name Policy Type Policy Number Effective Date Expira tion Date [facility] [id number] Problems Condition Name Condition Details Condition Category [...] PHYSICIANS . RN TO OBSERVE AND ASSESS, GOLD CHARMER/AIDS SOCIAL WORKER TO OBSERVE FOR RISK FOR FALLS AND INSTRUCT IN FALL PREVENTION, HOME SAFETY, MEDICATION MANAGEMENT, INFECTION PREVENTION, AND NUTRITION MANAGEMENT. RN/GOLD CHARMER/AIDS SOCIAL WORKER NURSE MAY PERFORM O2 SATURATION LEVEL ON ADMISSION AND PRN FOR EVERY VISIT FOR RN TO ASSESS/GOLD CHARMER TO OBSERVE PATIENT, WITH NOTIFICATION TO THE PHYSICIAN IF SATURATION IS 90% IN THE ABSENCE OF MORE SPECIFIC PARAMETERS FROM THE PHYSICIAN. AGENCY MAY PERFORM A RESUMPTION OF CARE VISIT FOLLOWING ANY HOSPITAL ADMISSION. RN/GOLD CHARMER/AIDS SOCIAL WORKER TO MONITOR CO-MORBID CONDITIONS LISTED ON THE PLAN OF CARE AND ANY NEW CONDITIONS THAT PRESENT THEMSELVES DURING THIS EPISODE TO IDENTIFY CHANGES AND INTERVENE TO MINIMIZE COMPLICATIONS. [code = RN TO OBSERVE, ASSESS, EVALUATE, AND DEVELOP AN INDIVIDUALIZED PLAN OF CARE. AGENCY MAY ACCEPT ORDERS FROM CONSULTING PHYSICIANS . RN TO OBSERVE AND ASSESS, GOLD CHARMER/AIDS SOCIAL WORKER TO OBSERVE FOR RISK FOR FALLS AND INSTRUCT IN FALL PREVENTION, HOME SAFETY, MEDICATION MANAGEMENT, INFECTION PREVENTION, AND NUTRITION MANAGEMENT. RN/GOLD CHARMER/AIDS SOCIAL WORKER NURSE MAY PERFORM O2 SATURATION LEVEL ON ADMISSION AND PRN FOR EVERY VISIT FOR RN TO ASSESS/GOLD CHARMER TO OBSERVE PATIENT, WITH NOTIFICATION TO THE PHYSICIAN IF SATURATION IS 90% IN THE ABSENCE OF MORE SPECIFIC PARAMETERS FROM THE PHYSICIAN. AGENCY MAY PERFORM A RESUMPTION OF CARE VISIT FOLLOWING ANY HOSPITAL ADMISSION. RN/GOLD CHARMER/AIDS SOCIAL WORKER TO MONITOR CO-MORBID CONDITIONS LISTED ON THE PLAN OF CARE AND ANY NEW CONDITIONS THAT PRESENT THEMSELVES DURING THIS EPISODE TO IDENTIFY CHANGES AND INTERVENE TO MINIMIZE COMPLICATIONS.] Future Scheduled Test COPD MONIT ORING RN/AIDS SOCIAL WORKER/GOLD CHARMER TO MONITOR FOR SIGNS AND SYMPTOMS OF COPD EXACERBATION, MONITOR FOR ADHERENCE TO MEDICATION AND COPD MANAGEMENT. [code = COPD MONITORING RN/AIDS SOCIAL WORKER/GOLD CHARMER TO MONITOR FOR SIGNS AND SYMPTOMS OF COPD EXACERBATION, MONITOR FOR ADHERENCE TO MEDICATION AND COPD MANAGEMENT.] Future Scheduled Test RISK FOR H OSPITALIZATION; RN TO ASSESS/TEACH, AIDS SOCIAL WORKER/GOLD CHARMER TO OBSERVE/TEACH PATIENT/CAREGIVER ON RISK FOR HOSPITALIZATION/EMERGENCY ROOM VISITS, TEACH SIGNS AND SYMPTOMS THAT PUT PATIENT AT RISK, WHEN TO NOTIFY NURSE/PHYSICIAN OF COMPLICATIONS/DECLINE, AND WHEN TO CALL 911. [code = RISK FOR HOSPITALIZATION; RN TO ASSESS/TEACH, AIDS SOCIAL WORKER/GOLD CHARMER TO OBSERVE/TEACH PATIENT/CAREGIVER ON RISK FOR HOSPITALIZATION/EMERGENCY ROOM VISITS, TEACH SIGNS AND SYMPTOMS THAT PUT PATIENT AT RISK, WHEN TO NOTIFY NURSE/PHYSICIAN OF COMPLICATIONS/DECLINE, AND WHEN TO CALL 911.] Future Scheduled Test CARDIOVASC ULAR SYSTEM; RN TO ASSESS/TEACH, GOLD CHARMER/AIDS SOCIAL WORKER TO OBSERVE/TEACH RELATED TO ALTERED CARDIOVASCULAR STATUS TO MINIMIZE COMPLICATIONS AND REDUCE HOSPITALIZATION. [code = CARDIOVASCULAR SYSTEM; RN TO ASSESS/TEACH, GOLD CHARMER/AIDS SOCIAL WORKER TO OBSERVE/TEACH RELATED TO ALTERED CARDIOVASCULAR STATUS TO MINIMIZE COMPLICATIONS AND REDUCE HOSPITALIZATION.] Future Scheduled Test HYPERTENSI ON MANAGEMENT; RN TO ASSESS AND TEACH, GOLD CHARMER/AIDS SOCIAL WORKER TO OBSERVE AND TEACH WARNING SIGNS AND SYMPTOMS TO AVOID HOSPITALIZATION. [code = HYPERTENSION MANAGEMENT; RN TO ASSESS AND TEACH, GOLD CHARMER/AIDS SOCIAL WORKER TO OBSERVE AND TEACH WARNING SIGNS AND SYMPTOMS TO AVOID HOSPITALIZATION.] Future Scheduled Test RESPIRATOR Y SYSTEM MANAGEMENT; RN TO ASSESS AND TEACH, GOLD CHARMER/AIDS SOCIAL WORKER TO OBSERVE AND TEACH RELATED TO ALTERED RESPIRATORY STATUS TO MINIMIZE COMPLICATIONS AND REDUCE HOSPITALIZATION. [code = RESPIRATORY SYSTEM MANAGEMENT; RN TO ASSESS AND TEACH, GOLD CHARMER/AIDS SOCIAL WORKER TO OBSERVE AND TEACH RELATED TO ALTERED RESPIRATORY STATUS TO MINIMIZE COMPLICATIONS AND REDUCE HOSPITALIZATION.] Future Scheduled Test COPD MANAG EMENT; RN TO ASSESS AND TEACH, GOLD CHARMER/AIDS SOCIAL WORKER TO OBSERVE AND TEACH SIGNS/SYMPTOMS OF COPD EXACERBATION AND PROVIDE EARLY INTERVENTIONS TO MINIMIZE RISK OF HOSPITALIZATION. RN/GOLD CHARMER/AIDS SOCIAL WORKER TO INSTRUCT ON SELF-CARE MANAGEMENT INCLUDING BREATHING TECHNIQUES, AIRWAY CLEARANCE, AND PROPER USE OF COPD MEDICATIONS. RN TO ASSESS AND TEACH, GOLD CHARMER/AIDS SOCIAL WORKER TO OBSERVE AND TEACH PATIENT/CAREGIVER ABILITY TO MONITOR AND RECORD VITAL SIGNS INCLUDING PULSE OXIMETRY AND BLOOD PRESSURE. PULSE OXIMETER AND BP MONITOR TO BE PROVIDED IF NEEDED . [code = COPD MANAGEMENT; RN TO ASSESS AND TEACH, GOLD CHARMER/AIDS SOCIAL WORKER TO OBSERVE AND TEACH SIGNS/SYMPTOMS OF COPD EXACERBATION AND PROVIDE EARLY INTERVENTIONS TO MINIMIZE RISK OF HOSPITALIZATION. RN/GOLD CHARMER/AIDS SOCIAL WORKER TO INSTRUCT ON SELF-CARE MANAGEMENT INCLUDING BREATHING TECHNIQUES, AIRWAY CLEARANCE, AND PROPER USE OF COPD MEDICATIONS. RN TO ASSESS AND TEACH, GOLD CHARMER/AIDS SOCIAL WORKER TO OBSERVE AND TEACH PATIENT/CAREGIVER ABILITY TO MONITOR AND RECORD VITAL SIGNS INCLUDING PULSE OXIMETRY AND BLOOD PRESSURE. PULSE OXIMETER AND BP MONITOR TO BE PROVIDED IF NEEDED .] Future Scheduled Test ASTHMA MAN AGEMENT; RN TO ASSESS AND TEACH, GOLD CHARMER/AIDS SOCIAL WORKER TO OBSERVE AND TEACH ASTHMA MANAGEMENT AND PROVIDE EARLY INTERVENTIONS TO MINIMIZE RISK OF HOSPITALIZATION [code = ASTHMA MANAGEMENT; RN TO ASSESS AND TEACH, GOLD CHARMER/AIDS SOCIAL WORKER TO OBSERVE AND TEACH ASTHMA MANAGEMENT AND PROVIDE EARLY INTERVENTIONS TO MINIMIZE RISK OF HOSPITALIZATION] Future Scheduled Test PAIN MANAG EMENT; RN TO ASSESS AND TEACH, AIDS SOCIAL WORKER/GOLD CHARMER TO OBSERVE AND TEACH AND PROVIDE EDUCATION ON PAIN MANAGEMENT TECHNIQUES. [code = PAIN MANAGEMENT; RN TO ASSESS AND TEACH, AIDS SOCIAL WORKER/GOLD CHARMER TO OBSERVE AND TEACH AND PROVIDE EDUCATION ON PAIN MANAGEMENT TECHNIQUES.] Future Scheduled Test PRN VISITS ; NUMBER OF RN/GOLD CHARMER/AIDS SOCIAL WORKER VISITS: 1 RN/GOLD CHARMER/AIDS SOCIAL WORKER TO PERFORM: RESPIRATORY MANAGEMENT FOR THE FOLLOWING REASONS: COMPLICATIONS [code = PRN VISITS; NUMBER OF RN/GOLD CHARMER/AIDS SOCIAL WORKER VISITS: 1 RN/GOLD CHARMER/AIDS SOCIAL WORKER TO PERFORM: RESPIRATORY MANAGEMENT FOR THE FOLLOWING [...] TION MANAGEMENT; RN TO ASSESS AND OBSERVE, GOLD CHARMER/AIDS SOCIAL WORKER TO OBSERVE FALL RISK FACTORS AND EDUCATE PATIENT/CAREGIVER ON STRATEGIES TO MINIMIZE THE RISK OF FALLING. [code = FALL REDUCTION MANAGEMENT; RN TO ASSESS AND OBSERVE, GOLD CHARMER/AIDS SOCIAL WORKER TO OBSERVE FALL RISK FACTORS AND EDUCATE [...] OF DAILY LIVING (OT/DARRYL) BATH/SHOWER TRANSFER (OT/DARRYL) OT/INSPECTOR SALVAGE TO MONITOR AND EDUCATE ON OXYGEN SATURATION DURING ADLS/IADLS, NOTIFY PHYSICIAN AND/OR THE RN CLINICAL AUDIT REVIEWER FOR PHYSICIAN NOTIFICATION AND IF O2 SATS BELOW 90% AFTER 10 MIN OF REST. OT / INSPECTOR SALVAGE TO IDENTIFY FALL RISK FACTORS; EDUCATE THE PATIENT/CAREGIVER ON WAYS TO REDUCE FALL RISK FACTORS AND ESTABLISH HOME EXERCISE PROGRAM TO MINIMIZE FALL RISK. MAY TEACH THE PATIENT FLOOR RECOVERY WHEN CLINICALLY APPROPRIATE. OT/DARRYL TO EDUCATE ON HYPERTENSION SELF-MANAGEMENT OT/INSPECTOR SALVAGE TO EDUCATE ON COPD SELF-MANAGEMENT [code = AGENCY MAY PERFORM A RESUMPTION OF CARE VISIT FOLLOWING ANY HOSPITAL ADMISSION. OT TO EVALUATE, OBSERVE / ASSESS, AND MONITOR, INSPECTOR SALVAGE TO OBSERVE AND MONITOR, PROVIDE SKILLED THERAPEUTIC INTERVENTION, ACTIVITY, EDUCATION, AND TRAINING TO ADDRESS SAFETY AND INDEPENDENCE OF ADLS AND FUNCTIONAL TRANSFERS IN HOME ENVIRONMENT. BATHING/SHOWERING (OT/INSPECTOR SALVAGE) ACTIVITIES OF DAILY LIVING (OT/INSPECTOR SALVAGE) BATH/SHOWER TRANSFER (OT/DARRYL) OT/DARRYL TO MONITOR AND EDUCATE ON OXYGEN SATURATION DURING ADLS/IADLS, NOTIFY PHYSICIAN AND/OR THE RN CLINICAL AUDIT REVIEWER FOR PHYSICIAN NOTIFICATION AND IF O2 SATS BELOW 90% AFTER 10 MIN OF REST. OT / INSPECTOR SALVAGE TO IDENTIFY FALL RISK FACTORS; EDUCATE THE PATIENT/CAREGIVER ON WAYS TO REDUCE FALL RISK FACTORS AND ESTABLISH HOME EXERCISE PROGRAM TO MINIMIZE FALL RISK. MAY TEACH THE PATIENT FLOOR RECOVERY WHEN CLINICALLY APPROPRIATE. OT/INSPECTOR SALVAGE TO EDUCATE ON HYPERTENSION SELF-MANAGEMENT OT/INSPECTOR SALVAGE TO EDUCATE ON COPD SELF-MANAGEMENT] Future Scheduled Test AGENCY MAY PERFORM A RESUMPTION OF CARE VISIT FOLLOWING ANY HOSPITAL ADMISSION. PT TO EVALUATE, OBSERVE / ASSESS, AND MONITOR, RUNWAY MODEL TO OBSERVE AND MONITOR, PROVIDE SKILLED THERAPEUTIC INTERVENTION, ACTIVITY, EDUCATION, AND TRAINING TO ADDRESS; PT/RUNWAY MODEL TO PROVIDE GAIT TRAINING FOR IMPROVED MOBILITY AND /OR TO NORMALIZE GAIT PATTERN NEUROMUSCULAR RE-EDUCATION / BALANCE / POSTURAL CONTROL (PT) THERAPEUTIC EXERCISES AND ESTABLISHING A HOME EXERCISE PROGRAM (PT/RUNWAY MODEL) PT/RUNWAY MODEL TO PROVIDE STAIR TRAINING SIT TO/FROM STAND TRANSFERS (PT/RUNWAY MODEL) PT / RUNWAY MODEL TO MONITOR AND EDUCATE ON OXYGEN SATURATION DURING ADLS/IADLS, NOTIFY PHYSICIAN AND/OR THE RN CLINICAL AUDIT REVIEWER FOR PHYSICIAN NOTIFICATION AND IF O2 SATS BELOW PHYSICIAN ORDERED PARAMETERS AFTER 10 MIN OF REST PT / RUNWAY MODEL TO EDUCATE ON COPD SELF-MANAGEMENT PT/RUNWAY MODEL TO IDENTIFY FALL RISK FACTORS; EDUCATE THE PATIENT/CAREGIVER ON WAYS TO REDUCE FALL RISK FACTORS AND ESTABLISH HOME EXERCISE PROGRAM TO MINIMIZE FALL RISK. MAY TEACH THE PATIENT FLOOR RECOVERY WHEN CLINICALLY APPROPRIATE [code = AGENCY MAY PERFORM A RESUMPTION OF CARE VISIT FOLLOWING ANY HOSPITAL ADMISSION. PT TO EVALUATE, OBSERVE / ASSESS, AND MONITOR, RUNWAY MODEL TO OBSERVE AND MONITOR, PROVIDE SKILLED THERAPEUTIC INTERVENTION, ACTIVITY, EDUCATION, AND TRAINING TO ADDRESS; PT/RUNWAY MODEL TO PROVIDE GAIT TRAINING FOR IMPROVED MOBILITY AND /OR TO NORMALIZE GAIT PATTERN NEUROMUSCULAR RE-EDUCATION / BALANCE / POSTURAL CONTROL (PT) THERAPEUTIC EXERCISES AND ESTABLISHING A HOME EXERCISE PROGRAM (PT/RUNWAY MODEL) PT/RUNWAY MODEL TO PROVIDE STAIR TRAINING SIT TO/FROM STAND TRANSFERS (PT/RUNWAY MODEL) PT / RUNWAY MODEL TO MONITOR AND EDUCATE ON OXYGEN SATURATION DURING ADLS/IADLS, NOTIFY PHYSICIAN AND/OR THE RN CLINICAL AUDIT REVIEWER FOR PHYSICIAN NOTIFICATION AND IF O2 SATS BELOW PHYSICIAN ORDERED PARAMETERS AFTER 10 MIN OF REST PT / RUNWAY MODEL TO EDUCATE ON COPD SELF-MANAGEMENT PT/RUNWAY MODEL TO IDENTIFY FALL RISK FACTORS; EDUCATE THE [...] End Date/Time Encounter Type Admission Type Attending [facility] Facility Care Department Encounter ID Discharge Date Discharge Status Discharge Condition Discharge Reason Percent Goals Met 2024-07-11 00:00:00 2024-09-08 00:00:00 Outpatient NEW ADMISSION GAVI HICKS [facility] [id number]
--- OUTSIDE RECORDS SUMMARY | 2024-07-15 20:08 | XMS_ITS | Clinical Summary ---
Author Organization [facility] Address [address] [place] [address] Care Team Providers Care Clerical Methods Analyst Name Role Phone Rafael Ruiz MD Primary Care Provider [phone] Source Comments [facility],non-owned Affiliates and Associated Physician Practices is amultiple site organization consisting of ambulatory clinics and hospital sitesin [place], [place], [place] and [place]. This disclosure is being madepursuant to the Care Everywhere program and may not contain all information available regarding this patient. 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
--- OUTSIDE RECORDS SUMMARY | 2024-07-15 20:08 | XMS_ITS ---
Author Organization [facility] [address] Address [address] [place] [address] Care Team Providers Care Time Clock Inspector Name Role Phone Nu Shirley MD Primary Care Provider [phone] Active Problems Problem Noted Date Diagnosed Date COPD (chronic obstructive pulmonary disease) Atypical hyperplasia of left breast 11/28/2017 Lobular carcinoma in situ (LCIS) of left breast 11/28/2017 Abnormal ultrasound of breast 09/20/2017 Presence of stent in coronary artery 06/23/2017 Tobacco abuse 06/23/2017 Essential hypertension 06/23/2017 History of non-ST elevation myocardial infarctio n (NSTEMI) 06/23/2017 Coronary artery disease invo lving [place] coronary artery of [place] heart without angina pectoris 06/23/2017 Concussion with [...] consider Prolia. She should continue calcium of 6605-9023 mg per day through dietary intake or [...] this time. She should continue calcium of 4408-9077 mg per day through dietary intake or [...] has improved. She should continue calcium of 3575-8192 mg per day through dietary intake or supplements and vitamin D 2000 IU per day get IV Reclast again Assessment & Plan (11/23/2018 4:00 PM CDT): In summary, Ms. GARSIA has osteoporosis that is likely multifactorial secondary to tobacco use and family history of osteoporosis and advanced age. Her bone density has improved. She should continue calcium of 2464-6430 mg per day through dietary intake or supplements and vitamin D 2000 IU per day get IV Reclast again. Assessment & Plan (10/27/2017 12:06 PM CDT): In summary, Ms. GARSIA has osteoporosis that is likely multifactorial secondary to tobacco use and family history of osteoporosis and advanced age. She's being treated with calcium of 7300-8658 mg per day through dietary intake or [...]
--- OUTSIDE RECORDS SUMMARY | 2024-07-15 20:08 | XMS_ITS | Clinical Summary ---
Author Organization [facility] Address [address] [place] [address] Phone Care Team Providers Care Manager Er Name Role Phone Stacey Wyatt MD Primary [...] Take by mouth 2 times daily. Active [place]-3 Fatty Acids (OMEGA-3 FISH OIL PO) Take [...] age to complete this topic Insurance MEDICARE [facility] [place] [id number] [facility] Care Teams Manager Er Relationship Specialty Start Date End Date Stacey Wyatt MD [address] [place] [address] PCP - General Family Medicine 11/24/17
[2024-07-15] MEDS: AMPICILLIN SULB 3 GM/NS 100 ML 3 GM/100 ML VIAL IVPB (21:22)
[2024-07-15] MEDS: methylPREDNISolone SOD SUCC 125 MG VIAL IV PUSH (21:23)
[2024-07-15] MEDS: ACETAMINOPHEN 325 MG TABLET 650 MG PO (21:24)
[2024-07-15] MEDS: GABAPENTIN 300 MG CAPSULE PO (22:44)
[2024-07-15] MEDS: LIDOCAINE 5% PATCH 1 PATCH TRANSDERM (22:44)
[2024-07-16] VITALS (25 sets, daily range): BP systolic 98–137; BP diastolic 47–77; PULSE 89–155; RESP 14–20; TEMP 36.8–37.3; O2SAT 90–97
[2024-07-16] MEDS: ACETAMINOPHEN 325 MG TABLET 650 MG PO ×4 (00:13→17:58)
[2024-07-16] MEDS: IPRATROPIUM 0.5 MG/ALBUTEROL SULFATE 2.5 MG AMPUL.NEB 3 ML INHALATION (03:55)
[2024-07-16] MEDS: METOPROLOL TARTRATE INJ 5 MG/5 ML VIAL IV PUSH ×2 (04:55→22:58)
[2024-07-16] MEDS: POTASSIUM CHLORIDE 20 MEQ ER TABLET 40 MEQ PO (04:55)
[2024-07-16 05:03] LABS: Basophils Absolute Auto 0.1 K/mm3 (0.0-0.1); Basophils Percent Auto 0.6 % (0.2-1.2); Hematocrit 34.7 % (37.0-47.0); Hemoglobin 11.3 g/dL (12.0-15.0); Immature Granulocyte Absolute 0.12 K/mm3 (0.00-0.031); Immature Granulocyte Percent A 0.6 % (0-0.5); Lymphocytes Absolute Auto 0.84 K/mm3 (0.9-3.2); Mean Corpuscular HGB Conc 32.6 g/dl (32-36); Mean Corpuscular Hemoglobin 33.2 pg (26-34); Mean Corpuscular Volume 102.1 fl (80-100); Mean Platelet Volume 9.5 fl (7.4-10.4); Monocytes Absolute Auto 1.3 K/mm3 (0.1-0.6); Monocytes Percent Auto 5.9 % (2.6-8.5); Neutrophils Absolute Auto 18.7 K/mm3 (1.3-6.7); Neutrophils Percent Auto 88.9 % (45.5-73.1); Platelet Count Result 734 k/mm3 (150-375); Red Cell Distribution Width 13.4 % (11.5-14.5); White Blood Count 21.1 K/mm3 (4.5-10.0)
[2024-07-16 05:13] LABS: Anion Gap 14 mmol/L (4-12); Blood Urea Nitrogen 15 mg/dL (7-17); Calcium 8.3 mg/dL (8.4-10.2); Carbon Dioxide 25 mmol/L (22-30); Chloride 96 mmol/L (98-107); Estimated CRCL calculation 72 ml/min; Estimated Glomerular Filt Rate > 60; Glucose 82 mg/dL (65-110); Potassium 3.8 mmol/L (3.4-5.0); Sodium 135 mmol/L (137-145)
[2024-07-16 05:19] LABS: Magnesium 2.4 mg/dL (1.6-2.3)
--- NOTE | 2024-07-16 06:56 | ECG_ITS ---
Test Date: 2024-07-16 07:04:45 Measurements Intervals [place] Rate: 118 P: 0 ID: 0 QRS: 213 QRSD: 138 T: 91 QT: 357 QTc: 500 Interpretive Statements ATRIAL FIBRILLATION WITH RAPID VENTRICULAR RESPONSE INTRAVENTRICULAR CONDUCTION DELAY [130+ ms QRS DURATION] ANTEROLATERAL MYOCARDIAL INFARCTION , OF INDETERMINATE AGE [40+ ms Q WAVE IN I/aVL/V3-V6] Compared to ECG 07/16/2024 07:04:08 No significant changes Electronically Signed On 07-17-2024 14:19:03 CDT by Kortney Farley M.D.
[2024-07-16 07:35] LABS: Add Urine Microscopic? YES; Appearance Urine Clear (Clear); Bacteria Urine None Seen /hpf; Bilirubin Urine Negative (Negative); Blood Urine Negative (Negative); Color Urine Yellow (Yellow); Glucose Urine UA 3+ mg/dL (Negative); Ketones Urine 1+ mg/dL (Negative); Leukocyte Esterase Ur Negative LEU/UL (Negative); Nitrate Urine Negative (Negative); Non Pathogenic Casts 0-2; Protein Urine Trace mg/dL (Negative); RBC Urine 0-2 /hpf (0-2); Specific Grav Ur > 1.045 (1.001-1.035); Squamous Epithelial Cell Urine Occasional /hpf (Few); WBC Urine 0-5 /hpf (0-3); pH Urine 5.5 (5.0-9.0)
--- NOTE | 2024-07-16 07:53 | P.PNCROSS_ITS ---
Event Note Event Note Event Note: Nursing staff called as the patient was having tachycardia. Stat labs were ord ered. IV Lopressor was ordered x1. Patient did have improvement in her heart rate. The patient did meet sepsis criteria but did not received 30 mL/kilos bolus. I did give order for another 500 mL isotonic fluid bolus to complete the patient's 30 mL/kilos bolus. Stat EKG was ordered but was somehow discontinued. Repeat EKG was ordered. Patient had been admitted and placed on empiric antibiotic therapy with Rocephin and azithromycin. But on my review of the patient's chart the patient was noted to have QT prolongation on multiple EKGs. Subsequently I will discontinue azithromycin. Will switch patient's antibiotic coverage to Rocephin and doxycycline. Blood cultures have been obtained and are pending. Will check MRSA PCR. I was unable to make it to the patient's room for a [id number] evaluation in subsequently further care was deferred to daytime provider.. Cardiology has been consulted regarding the patient's tachyarrhythmia.
[2024-07-16 08:08] LABS: Lactic Acid Reflex 1.1 mmol/L (0.7-2.0)
[2024-07-16] MEDS: SODIUM CHLORIDE 0.9% IV 500 ML IV CONT (08:13)
[2024-07-16] MEDS: ASPIRIN 81 MG ENTERIC TABLET PO (08:14)
[2024-07-16] MEDS: THIAMINE HCL 100 MG TABLET PO (08:14)
[2024-07-16] MEDS: predniSONE 20 MG TABLET 40 MG PO (08:14)
[2024-07-16] MEDS: EMPAGLIFLOZIN 10 MG TABLET PO (08:15)
[2024-07-16] MEDS: PANTOPRAZOLE 40 MG TABLET PO (08:15)
[2024-07-16] MEDS: FERROUS SULFATE 325 MG TABLET DR PO (08:15)
[2024-07-16] MEDS: EZETIMIBE 10 MG TABLET PO (08:15)
[2024-07-16] MEDS: LIDOCAINE 5% PATCH 1 PATCH TRANSDERM (08:16)
[2024-07-16] MEDS: GABAPENTIN 300 MG CAPSULE PO ×3 (08:16→16:45)
[2024-07-16] MEDS: DOCUSATE SODIUM 100 MG CAPSULE PO ×2 (08:16→16:45)
[2024-07-16 09:05] LABS: Procalcitonin 12.3 ng/mL
[2024-07-16] MEDS: IPRATROPIUM BR 0.02% INH SOLN 0.5 MG/2.5 ML VIAL INHALATION ×3 (09:15→20:14)
[2024-07-16] MEDS: LEVALBUTEROL NEB 1.25 MG/3 ML INHALATION ×3 (09:15→20:14)
[2024-07-16] MEDS: FLUTICASONE/UMECLIDIN/VILANTER 100-62.5-25 MCG ELLIPTA 1 PUFF INHALATION (09:15)
[2024-07-16] MEDS: SPIRONOLACTONE 25 MG TABLET PO (09:31)
[2024-07-16] MEDS: SACUBITRIL/VALSARTAN 24-26 MG TABLET 1 TAB PO ×2 (09:31→20:08)
[2024-07-16] MEDS: DOXYCYCLINE 100 MG/NS 100 ML 100 MG/100 ML BAG IVPB ×2 (09:31→20:39)
[2024-07-16 10:45] LABS: MRSA (PCR) NOT DETECTED (NOT DETECTE)
--- NOTE | 2024-07-16 11:14 | P.CONCA_ITS ---
Assessment and Plan Assessment and plan (1) Atrial fibrillation: Code(s): I48.91 - Unspecified atrial fibrillation Status: Acute Assessment and Plan: Atrial fibrillation with rapid ventricular response in the setting of pneumonia. This is a new diagnosis for the patient. Chronicity is not known. She spontaneously converted to sinus rhythm and remains in sinus rhythm now. * Will start her on ToprolXL 25mg daily * She has a CHADs2 Vasc score of at least 4, therefore anticoagulation is indicated. Start Eliquis 5mg b.i.d. after thoracentesis when OK with radiology. Of note, when assessing for appropriateness of anticoagulation I asked patient about falls. Her chart indicates she has had multiple recent falls which she denies and states, I keep telling them I didn't fall. States she, lowered herself to the floor once but did not fall or lose consciousness. * Continue to monitor on telemetry for now (2) CAD (coronary artery disease): Code(s): I25.10 - Atherosclerotic heart disease of [place] coronary artery without angina pectoris Status: Acute Assessment and Plan: This is stable. Not complaining of any anginal symptoms. * Continue ASA * Continue statin and Zetia (3) Ischemic cardiomyopathy: Code(s): I25.5 - Ischemic cardiomyopathy Status: Acute Assessment and Plan: EF 40%. Appears to be compensated * Continue Entresto * Continue jardiance * Continue spironolactone * As above, adding ToprolXL. Plan Cardiology will sign off please call with questions. History of Present Illness History of Present Illness Consult date/time: 07/16/24 11:14 Requesting physician: Shavon Reynolds DO Consult reason: atrial fibrillation Reason For Visit: Right Sided Pneumonia/Pleural Effusion/ SOB Narrative: Oralia Garsia is a 73-year-old female with coronary artery disease, history of non ST elevation OR status post PCI/CINDY x1 proximal LCX in 2018, systolic heart failure, severe COPD. She presents to the hospital with worsening shortness of breath and was found to have pneumonia. Cardiology is consulted because of atrial fibrillation with rapid ventricular response. Patient denies any history of atrial fibrillation and denies feeling any palpitations. Her initial EKG shows atrial fibrillation with rapid ventricular response. She did convert to sinus tachycardia but went back into atrial fibrillation with RVR and now is back in sinus rhythm. She feels okay aside from having pain with deep breaths because of fractured ribs. Review of Systems 2 Review of Systems: All systems reviewed & are unremarkable except as noted in HPI and below PMFSH Past Medical History Medical History Nodule of right lung Elevated liver enzymes Ischemic cardiomyopathy ECHO 05/24 40% EF COPD (chronic obstructive pulmonary disease) Hyperlipidemia Primary hypertension Benign hypertension Chronic obstructive pulmonary disease 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 Osteoporosis without current pathological fracture Other emphysema Surgical History Surgical History H/O breast surgery History of heart artery stent Family History Family History Sibling Hypertension Family history of malignant neoplasm of breast in first degree relative Family history of dementia Father Family history of cardiovascular disease Cerebrovascular accident Mother Family history of cardiovascular disease Family history of malignant neoplasm of urinary bladder Social History Social History Smoking packs per day: 0.5 Smoking cigarettes per day: 10.0 Years smoked: 50 Smoking pack-years: 25.00 Smoking status: Former smoker Tobacco type: cigarettes Second hand tobacco smoke exposure: No Alcohol intake: former Drinks per week: 4 Substance use: never Substance use type: does not use Last use: 06/14/2024 Do You Feel Safe in your Home?: Yes Lack of Transportation: No Lack of Food: Never True Current Housing: I Have Housing Concerned About Future Housing: No Difficulty Paying Gas/Electric Bills: No Difficulty Paying for Meds: No Currently Unemployed: No Education: High School Diploma/GED Difficulty w/ Childcare or Family Care: No Living arrangements: alone Gender identity (if verbalized by the patient): Female Spiritual care concerns: No Meds Home Medications and Allergies Home Medications Medication Instructions Recorded Confirmed Type aspirin 81 mg tablet,delayed 81 mg PO DAILY 02/19/19 07/15/24 History release clobetasol 0.05 % topical cream 1 applic topical DAILY PRN 03/20/20 07/15/24 History PSORIASIS tacrolimus 0.1 % topical ointment 1 applic topical BID PRN PSORIASIS 03/20/20 07/15/24 History triamcinolone acetonide 0.1 % 1 applic topical BID PRN PSORIASIS 03/20/20 07/15/24 History topical cream ezetimibe 10 mg tablet (Zetia) 10 mg PO DAILY #30 tabs 12/17/20 07/15/24 Rx empagliflozin 10 mg tablet 10 mg PO DAILY 02/09/23 07/15/24 History (Jardiance) sacubitril 24 mg-valsartan 26 mg 1 tablet PO BID 02/09/23 07/15/24 History tablet (Entresto) inhalational spacing device (Space #1 ea 04/26/23 07/15/24 Rx Chamber) thiamine HCl (vitamin B1) 100 mg 100 mg PO DAILY #100 tabs 06/16/23 07/15/24 Rx tablet budesonide 160 mcg-glycopyr 9 See Rx Instructions .Route 11/03/23 07/15/24 Rx mcg-formot 4.8 mcg/actuation HFA .COMPLEX #10.7 grams inhaler ([employer]) ipratropium bromide 21 mcg (0.03 See Rx Instructions .Route 02/15/24 07/15/24 Rx %) nasal spray .COMPLEX #30 mL omeprazole 20 mg tablet,delayed 20 mg PO DAILY #90 tabs 06/04/24 07/15/24 Rx release albuterol sulfate 90 mcg/actuation 1 inh inhalation Q4H #8.5 grams 06/07/24 07/15/24 Rx aerosol inhaler fluticasone propionate 50 1 spray intranasal BID PRN nasal 06/11/24 07/15/24 History mcg/actuation nasal congestion spray,suspension spironolactone 25 mg tablet 25 mg PO DAILY 06/11/24 07/15/24 History ferrous sulfate 325 mg (65 mg 325 mg PO DAILY 07/15/24 07/15/24 History iron) tablet (FeroSul) tramadol 50 mg tablet 50 mg PO Q6H PRN pain 07/15/24 07/15/24 History Allergies Allergy/AdvReac Type Severity Reaction Status Date / Time roflumilast (From [facility]) Allergy Unknown Hives Verified 07/15/24 13:56 morphine AdvReac Unknown Nausea Verified 07/15/24 13:56 Vital Signs Vital Signs - 24 hr 07/15/24 13:40 07/15/24 13:46 07/15/24 13:47 Temperature 36.9 C Pulse Rate 118 H 116 H Respiratory Rate 35 H 34 H Blood Pressure 140/91 H Pulse Oximetry 94 95 96 Oxygen Delivery Room Air Nasal Cannula Oxygen Flow Rate 2 07/15/24 13:48 07/15/24 14:00 07/15/24 14:04 Temperature Pulse Rate 114 H 142 H Respiratory Rate 27 H 29 H Blood Pressure 119/93 H Pulse Oximetry 97 98 96 Oxygen Delivery Nasal Cannula Oxygen Flow Rate 2 07/15/24 14:15 07/15/24 14:16 07/15/24 14:30 Temperature Pulse Rate 116 H 163 H 108 H Respiratory Rate 37 H 41 H 27 H Blood Pressure 118/69 Pulse Oximetry 97 97 97 Oxygen Delivery Oxygen Flow Rate 07/15/24 14:31 07/15/24 14:45 07/15/24 14:46 Temperature Pulse Rate 114 H 105 H 113 H Respiratory Rate 24 H 25 H 34 H Blood Pressure 111/72 124/92 H Pulse Oximetry 98 100 98 Oxygen Delivery Oxygen Flow Rate 07/15/24 15:00 07/15/24 15:28 07/15/24 15:30 Temperature Pulse Rate 115 H 129 H Respiratory Rate 29 H 27 H Blood Pressure Pulse Oximetry 98 97 97 Oxygen Delivery Room Air Oxygen Flow Rate 07/15/24 15:45 07/15/24 15:59 07/15/24 16:00 Temperature Pulse Rate 99 101 H 99 Respiratory Rate 23 H 27 H 26 H Blood Pressure 112/73 Pulse Oximetry 96 97 97 Oxygen Delivery Oxygen Flow Rate 07/15/24 16:01 07/15/24 16:15 07/15/24 16:16 Temperature Pulse Rate 103 H 98 98 Respiratory Rate 32 H 24 H 22 H Blood Pressure 95/58 L 109/53 L Pulse Oximetry 96 95 95 Oxygen Delivery Oxygen Flow Rate 07/15/24 16:30 07/15/24 16:31 07/15/24 16:45 Temperature Pulse Rate 98 97 98 Respiratory Rate 26 H 21 H 26 H Blood Pressure 111/62 Pulse Oximetry 95 95 95 Oxygen Delivery Oxygen Flow Rate 07/15/24 16:46 07/15/24 17:00 07/15/24 17:01 Temperature Pulse Rate 104 H 104 H Respiratory Rate 27 H 29 H Blood Pressure 116/68 130/69 Pulse Oximetry 94 94 Oxygen Delivery Oxygen Flow Rate 07/15/24 17:15 07/15/24 17:30 07/15/24 17:36 Temperature Pulse Rate 148 H 105 H 113 H Respiratory Rate 31 H 28 H 26 H Blood Pressure Pulse Oximetry 91 93 Oxygen Delivery Oxygen Flow Rate 07/15/24 17:50 07/15/24 18:10 07/15/24 18:15 Temperature Pulse Rate 110 H 110 H 109 H Respiratory Rate 20 26 H 26 H Blood Pressure Pulse Oximetry 92 93 Oxygen Delivery Oxygen Flow Rate 07/15/24 18:16 07/15/24 18:30 07/15/24 20:00 Temperature Pulse Rate 110 H 114 H 104 H Respiratory Rate 31 H 32 H 18 Blood Pressure 116/68 Pulse Oximetry 94 90 Oxygen Delivery Room Air Oxygen Flow Rate 07/15/24 20:00 07/15/24 20:50 07/15/24 21:17 Temperature 36.9 C Pulse Rate 109 H 104 H 98 Respiratory Rate 18 20 Blood Pressure 121/67 Pulse Oximetry 90 Oxygen Delivery Oxygen Flow Rate 07/15/24 21:32 07/16/24 00:00 07/16/24 03:55 Temperature Pulse Rate 104 H 96 95 Respiratory Rate 18 18 Blood Pressure Pulse Oximetry Oxygen Delivery Oxygen Flow Rate 07/16/24 04:00 07/16/24 04:39 07/16/24 04:40 Temperature 36.8 C Pulse Rate 98 105 H 141 H Respiratory Rate 20 Blood Pressure 137/77 Pulse Oximetry 90 Oxygen Delivery Oxygen Flow Rate 07/16/24 04:55 07/16/24 06:47 07/16/24 06:54 Temperature 36.8 C Pulse Rate 155 H 98 Respiratory Rate 20 Blood Pressure 98/58 L 104/56 L Pulse Oximetry 92 Oxygen Delivery Oxygen Flow Rate 07/16/24 08:40 07/16/24 08:40 07/16/24 08:42 Temperature 37.3 C Pulse Rate 101 H 101 H 101 H Respiratory Rate 20 Blood Pressure 112/72 Pulse Oximetry 97 97 Oxygen Delivery Room Air Oxygen Flow Rate 07/16/24 09:15 07/16/24 09:15 07/16/24 09:28 Temperature Pulse Rate 95 91 Respiratory Rate 20 20 Blood Pressure Pulse Oximetry 96 Oxygen Delivery Nasal Cannula Oxygen Flow Rate 1 Exam 2 Const: General: comfortable, no acute distress, alert and awake O rientation/consciousness: patient oriented x3 HENMT: Head: normal to inspection Eyes: General: appearance normal, both eyes and all related structures P upils: Equal, round and reactive pupils present Neck: Neck: normal visual inspection, supple and no JVD Carotids: normal carotid upstroke Resp: Effort & Inspection: normal respiratory effort Auscultation: wheezes and diminished lung sounds Cardio: Rate: regular rate Rhythm: regular rhythm Heart sounds: S1 normal heart sound present, S2 normal heart sound present and no murmurs GI: Auscultation: normal bowel sounds Skin: General skin exam: normal color Neuro: General: patient oriented x3 Cranial nerves: Yes Equal, round and reactive pupils present Extrem: General: normal to inspection Psych: Appearance: grossly normal Mental Status: mental status grossly normal Results Labs and Meds 07/16/24 04:52 07/16/24 04:52 Lab results: Cardiac Enzymes 07/15/24 Range/Units 13:56 AST 22 (14-36) U/L Troponin I < 0.012 (0.000-0.034) ng/mL CBC 07/15/24 07/16/24 Range/Units 13:56 04:52 WBC 19.4 H 21.1 H (4.5-10.0) K/mm3 RBC 3.18 L 3.40 L (4.2-5.4) M/mm3 Hgb 10.3 L 11.3 L (12.0-15.0) g/dL Hct 32.7 L 34.7 L (37.0-47.0) % Plt Count 707 H D 734 H (150-375) k/mm3 Lymph # (Auto) 1.30 0.84 L (0.9-3.2) K/mm3 Carter # (Auto) 1.2 H 1.3 H (0.1-0.6) K/mm3 Eos # (Auto) 0.2 0.0 (0-0.3) K/mm3 Baso # (Auto) 0.1 0.1 (0.0-0.1) K/mm3 Comprehensive Metabolic Panel 07/15/24 07/16/24 Range/Units 13:56 04:52 Sodium 135 L 135 L (137-145) mmol/L Potassium 3.2 L 3.8 (3.4-5.0) mmol/L Chloride 99 96 L (98-107) mmol/L Carbon Dioxide 26 25 (22-30) mmol/L BUN 10 15 D (7-17) mg/dL Creatinine 0.42 L 0.52 L (0.7-1.0) mg/dL Glucose 77 82 (65-110) mg/dL Calcium 8.3 L 8.3 L (8.4-10.2) mg/dL AST 22 (14-36) U/L ALT 17 (6-35) U/L Alkaline Phosphatase 88 (38-126) U/L Total Protein 6.0 L (6.3-8.2) g/dL Albumin 2.9 L (3.5-5.1) g/dL Intake and Output 07/15/24 07/16/24 07/16/24 23:59 07:59 15:59 Intake Total 300 290 Balance 300 290 Intake: IV 300 Azithromycin 500 mg/Ns 250 ml 250 500 mg In 250 ml @ 250 mls/hr IVPB ONCE ONE Rx#:[id number] cefTRIAXone 1 GM/NS 50 ML 1 gm 50 In 50 ml @ 100 mls/hr IVPB ONCE STA Rx#:[id number] Oral 290 Other: # Unmeasured Voids 1
[2024-07-16] MEDS: VANCOMYCIN 1,250 MG/NS 250 ML 1,250 MG/250 ML BAG 166.67 MG IVPB ×2 (11:30→21:44)
--- NOTE | 2024-07-16 11:31 | PCOTNOTE ---
Pt was transferred to IMU this morning due to Afib. Per RN and Dr. Rodriguez, hold therapy for today due to this. Will continue to follow.
[2024-07-16 12:02] LABS: INR 1.4; Prothrombin Time 17.1 Seconds (11.1-14.7)
[2024-07-16 12:03] LABS: Partial Thromboplastin Time 41.7 Seconds (22.3-36.8)
[2024-07-16] MEDS: traMADol HCL (*CRX) 50 MG TABLET PO (12:14)
--- NOTE | 2024-07-16 12:16 | PCPTNOTE ---
Pt was transferred to IMU this morning due to Afib. Per RN and Dr. Rodriguez, hold therapy for today due to this. Will continue to follow
[2024-07-16 13:57] LABS: Albumin Level 2.1 g/dL (3.5-5.1); Bilirubin,Total 0.5 mg/dL (0.2-1.3); Cholesterol 89 mg/dL (0-200); Glucose 74 mg/dL (65-110); Triglycerides 68 mg/dL (<150)
[2024-07-16 14:53] LABS: Amylase < 30 U/L (30-110)
[2024-07-16 14:54] LABS: Lactate Dehydrogenase < 200 U/L (120-246)
--- NOTE | 2024-07-16 15:26 | P.CDI_ITS ---
CDI Query Clarification Request BMI: 20.0 Nutritional Diagnostic Statement: Please refer to the comprehensive nutrition assessment for further information. If you agree with diagnosis of Severe protein calorie malnutrition related to chronic COPD, loss of appetite as evidenced by weight loss 12%/2 months; intakes <75% needs >1 month; severe muscle wasting and fat loss. Please specify severity if known: * Mild * Moderate * Severe * Other/Unknown <Sarah Giles RN - Last Filed: 07/17/24 06:38> Clarified Diagnosis Clarified Diagnosis: I agree with diagnosis of Severe protein calorie malnutrition related to chronic COPD, loss of appetite as evidenced by weight loss 12%/2 months; intakes <75% needs >1 month; severe muscle wasting and fat loss <Ross Rodriguez MD - Last Filed: 07/22/24 09:02>
[2024-07-16 15:46] LABS: pH Pleural Fluid 7.105 (7.210-7.500)
[2024-07-16] MEDS: SODIUM CHLORIDE 0.9% IV 500 ML 100 ML IV CONT (16:45)
[2024-07-16 17:08] LABS: Appearance Pleural Fluid Cloudy (Clear); Color Pleural Fluid Yellow (Colorless); Lymphocytes Pleural Fluid 7 %; Neutrophils Pleural Fluid 76 % (0-25); Nucleated Cell Pleural Fluid 5526 /uL (0-1000); Pleural fluid source Pleural fluid; RBC Pleural Fluid < 2000 /uL (0-10000)
[2024-07-16 17:09] LABS: Macrophages Pleural Fluid 15 %; Monocytes Pleural Fluid 2 %
--- NOTE | 2024-07-16 18:01 | P.PNIM_ITS ---
Progress Note: A&P Assessment and Plan (1) Fall: Code(s): W19.XXXA - Unspecified fall, initial encounter Status: Acute Assessment and Plan: Moderate spinal canal stenosis at the level of L4-5 with bilateral narrowing of the foramina and highly suggestive right nerve root compression. MRI evaluation advised. No lower extremity deficits, can follow-up outpatient Patient states that she has had several falls PT OT (2) Acute pain: Code(s): R52 - Pain, unspecified Status: Acute Assessment and Plan: Possibly from rib fractures or pneumonia, chest pain on palpation Scheduled Tylenol, gabapentin and lidocaine P.r.n. oxycodone (3) Pneumonia: Code(s): J18.9 - Pneumonia, unspecified organism Status: Acute Assessment and Plan: Community-acquired Azithromycin, Unasyn and Rocephin given in ED Continue antibiotics azithromycin and Rocephin (4) Pleural effusion on right: Code(s): J90 - Pleural effusion, not elsewhere classified Status: Acute Assessment and Plan: Pleural effusion versus hemothorax Patient will likely benefit from a thoracentesis or chest tube Hold Lovenox (5) COPD (chronic obstructive pulmonary disease): Qualifiers: COPD type: unspecified COPD Qualified Code(s): J44.9 - Chronic obstructive pulmonary disease, unspecified Code(s): J44.9 - Chronic obstructive pulmonary disease, unspecified Status: Acute Assessment and Plan: Home inhalers Steroids starting incase is exacerbation (6) Primary hypertension: Code(s): I10 - Essential (primary) hypertension Status: Acute Assessment and Plan: Continue home med (7) Hyperlipidemia: Code(s): E78.5 - Hyperlipidemia, unspecified Status: Acute Assessment and Plan: Continue home med (8) CAD (coronary artery disease): Code(s): I25.10 - Atherosclerotic heart disease of [place] coronary artery without angina pectoris Status: Acute Assessment and Plan: Continue Entresto and Jardiance (9) Lung nodule: Code(s): R91.1 - Solitary pulmonary nodule Status: Acute Assessment and Plan: Unchanged from last CT (10) Dilated cbd, acquired: Code(s): K83.8 - Other specified diseases of biliary tract Status: Acute Assessment and Plan: Denies right upper quadrant pain No need for surgical or GI consult at this time Plan patient with history of recurrent pleural effusion and 9mm lung nodule was admitted with shortness of breath was admitted in need of therapeutic thoracentesis, while in the floor she developed Atrial fibrillation with RVR most likely trigger by shortness of breath due to pneumonia, however she spontaneously converted to sinus rhythm and remains in sinus rhythm now. seen by water resources project manager and started her on ToprolXL 25mg daily, patient is scheduled to have thoracentesis later today, will follow up. Subjective Date/time seen: 07/16/24 18:01 Interval history: Fall and shortness of breath H&P-Narrative: 73-year-old female past medical history of COPD, hypertension, CAD, and nodule of right lung presents the hospital with shortness of breath and a fall. Patient states that she had a fall about 3 days ago where she fell onto her butt. She denies hitting her chest or her head. Patient states for the last couple days she has been coughing really hard and has acute right lower chest pain, that is reproducible with palpation. Patient denies nausea vomiting fever chills. In the ED the patient has leukocytosis and 19.4, anemia at 10.3, platelets of 707, sodium of 135, potassium of 3.2. CT of the chest abdomen pelvis show no pulmonary embolism, right basilar atelectasis versus pneumonia with right modera te pleural effusion. Healing rib fractures. Left nodule unchanged. Distended gallbladder with no definite stones. Slightly dilated CBD and pancreatic ducts. patient with history of recurrent pleural effusion and 9mm lung nodule was admitted with shortness of breath was admitted in need of therapeutic thoracentesis, while in the floor she developed Atrial fibrillation with RVR most likely trigger by shortness of breath due to pneumonia, however she spontaneously converted to sinus rhythm and remains in sinus rhythm now. seen by water resources project manager and started her on ToprolXL 25mg daily, patient is scheduled to have thoracentesis later today, will follow up. Review of Systems Review of Systems: 12 systems were reviewed and are negativ e except for as per HPI. Exam Narrative: Appears chronically ill Patient is comfortable, NAD HEENT: eyes are clear and none icteric LUNGS: Bilateral poor air entry with rhonchi HEART: RR S1S2 ABD: BS+, Soft and nontender Lower extremities: no edema SKIN: nonjaundiced Neuro: grossly intact. Objective Data Vital Signs Vital Signs: Vital Signs - 24 hr 07/15/24 18:10 07/15/24 18:15 07/15/24 18:16 Temperature Pulse Rate 110 H 109 H 110 H Respiratory Rate 26 H 26 H 31 H Blood Pressure 116/68 Pulse Oximetry 92 93 94 Oxygen Delivery Oxygen Flow Rate 07/15/24 18:30 07/15/24 20:00 07/15/24 20:00 Temperature Pulse Rate 114 H 104 H 109 H Respiratory Rate 32 H 18 Blood Pressure Pulse Oximetry 90 Oxygen Delivery Room Air Oxygen Flow Rate 07/15/24 20:50 07/15/24 21:17 07/15/24 21:32 Temperature 36.9 C Pulse Rate 104 H 98 104 H Respiratory Rate 18 20 18 Blood Pressure 121/67 Pulse Oximetry 90 Oxygen Delivery Oxygen Flow Rate 07/16/24 00:00 07/16/24 03:55 07/16/24 04:00 Temperature Pulse Rate 96 95 98 Respiratory Rate 18 Blood Pressure Pulse Oximetry Oxygen Delivery Oxygen Flow Rate 07/16/24 04:39 07/16/24 04:40 07/16/24 04:55 Temperature 36.8 C Pulse Rate 105 H 141 H 155 H Respiratory Rate 20 Blood Pressure 137/77 Pulse Oximetry 90 Oxygen Delivery Oxygen Flow Rate 07/16/24 06:47 07/16/24 06:54 07/16/24 08:40 Temperature 36.8 C Pulse Rate 98 101 H Respiratory Rate 20 20 Blood Pressure 98/58 L 104/56 L Pulse Oximetry 92 97 Oxygen Delivery Room Air Oxygen Flow Rate 07/16/24 08:40 07/16/24 08:42 07/16/24 09:15 Temperature 37.3 C Pulse Rate 101 H 101 H Respiratory Rate Blood Pressure 112/72 Pulse Oximetry 97 96 Oxygen Delivery Nasal Cannula Oxygen Flow Rate 1 07/16/24 09:15 07/16/24 09:28 07/16/24 11:39 Temperature 36.9 C Pulse Rate 95 91 97 Respiratory Rate 20 20 14 Blood Pressure 100/63 Pulse Oximetry 94 Oxygen Delivery Oxygen Flow Rate 07/16/24 12:00 07/16/24 14:31 07/16/24 16:00 Temperature Pulse Rate 108 H 89 108 H Respiratory Rate 18 20 18 Blood Pressure Pulse Oximetry 95 95 Oxygen Delivery Nasal Cannula Nasal Cannula Oxygen Flow Rate 1 1 07/16/24 16:03 Temperature 37.0 C Pulse Rate 108 H Respiratory Rate 18 Blood Pressure 104/60 Pulse Oximetry 95 Oxygen Delivery Oxygen Flow Rate Intake/Output Intake/Output: Intake & Output 07/13/24 07/14/24 07/15/24 07/16/24 23:59 23:59 23:59 23:59 Intake Total 1300 290 Output Total 600 Balance 1300 -310 Meds/Results Medications: Active Medications Generic Name Dose Route Start Last Admin Trade Name Freq PRN Reason Stop Dose Admin Acetaminophen 650 mg 07/16/24 00:00 07/16/24 17:58 Acetaminophen 325 Mg Tablet PO 650 mg Q6HR ALESSIO Administration Aspirin 81 mg 07/16/24 09:00 07/16/24 08:14 Aspirin 81 Mg Enteric Tablet PO 81 mg DAILY ALESSIO Administration Clobetasol Propionate 1 applic 07/16/24 07:38 Clobetasol Propionate 0.05% Cream 15 Gm TOPICAL DAILY PRN PSORIASIS Docusate Sodium 100 mg 07/16/24 09:00 07/16/24 16:45 Docusate Sodium 100 Mg Capsule PO 100 mg BID ALESSIO Administration Ezetimibe 10 mg 07/16/24 09:00 07/16/24 08:15 Ezetimibe 10 Mg Tablet PO 10 mg DAILY ALESSIO Administration Empagliflozin 10 mg 07/16/24 09:00 07/16/24 08:15 Empagliflozin 10 Mg Tablet PO 10 mg DAILY ALESSIO Administration Enoxaparin Sodium 55 mg 07/16/24 09:00 07/16/24 11:29 Enoxaparin 60 Mg/0.6 Ml Syringe SUB-Q Not Given Q12H ALESSIO Ferrous Sulfate 325 mg 07/16/24 09:00 07/16/24 08:15 Ferrous Sulfate [address] PO 325 mg DAILY ALESSIO Administration Fluticasone Propionate 1 spray 07/16/24 07:38 Fluticasone Propionate 0.05% Na Spr 16 Gm Btl (*Bkc) NASAL BID PRN nasal congestion Fluticasone/Umeclidinium/Vilanterol 1 puff 07/16/24 08:00 07/16/24 09:15 Fluticasone/Umeclidin/Vilanter 100-62.5-25 Mcg Ellipta INHALATION 1 puff DAILYRT ALESSIO Administration Gabapentin 300 mg 07/15/24 22:20 07/16/24 16:45 Gabapentin 300 Mg Capsule PO 300 mg TID ALESSIO Administration Ceftriaxone Sodium 1 gm in 50 mls @ 100 mls/hr 07/16/24 16:00 07/16/24 17:57 Rocephin 1 Gm/Ns 50 Ml IVPB 100 mls/hr Q24H ALESSIO Administration Doxycycline Hyclate 100 mg in 100 mls @ 100 mls/hr 07/16/24 08:00 07/16/24 09:31 Vibramycin 100 Mg/Ns 100 Ml IVPB 100 mls/hr Q12H ALESSIO Administration Sodium Chloride 500 mls @ 100 mls/hr 07/16/24 16:03 07/16/24 16:45 Normal Saline Iv IV CONT 07/16/24 21:02 100 mls/hr .Q5H ONE Administration Ipratropium [place] 2 spray 07/16/24 09:00 Ipratropium Nasal [place] 0.03% 15 Ml Bottle NASAL TID ALESSIO Ipratropium [place] 0.5 mg 07/16/24 08:00 07/16/24 14:29 Ipratropium Br 0.02% Inh Soln 0.5 Mg/2.5 Ml Vial INHALATION 0.5 mg Q6HRT ALESSIO Administration Levalbuterol HCl 1.25 mg 07/16/24 08:00 07/16/24 14:29 Levalbuterol Neb 1.25 Mg/3 Ml INHALATION 1.25 mg Q6HRT ALESSIO Administration Lidocaine 1 patch 07/15/24 22:20 07/16/24 08:16 Lidocaine 5% Patch TRANSDERM 1 patch DAILY ALESSIO Administration Metoprolol Succinate 25 mg 07/17/24 09:00 Metoprolol Succinate Ext Rel 25 Mg Tabcr PO QAM [facility] Oxycodone HCl 5 mg 07/15/24 22:19 Oxycodone Hcl (*Crx) 5 Mg Tab Ir PO Q4H PRN Pain Rated 4-6 Oxycodone HCl 10 mg 07/15/24 22:19 Oxycodone Hcl (*Crx) 5 Mg Tab Ir PO Q4H PRN Pain Rated 7-10 Pantoprazole Sodium 40 mg 07/16/24 09:00 07/16/24 08:15 Pantoprazole 40 Mg Tablet PO 40 mg QAM [facility] Administration Prednisone 40 mg 07/16/24 08:00 07/16/24 08:14 Prednisone 20 Mg Tablet PO 07/21/24 07:59 40 mg DAILY@0800 [facility] Administration Sacubitril/Valsartan 1 tab 07/16/24 09:00 07/16/24 09:31 Sacubitril/Valsartan 24-26 Mg Tablet PO 1 tab Q12HR [facility] Administration Sodium Chloride 6 ml 07/17/24 05:00 Sodium Chlor 3% 15 Ml Neb (Respiratory Therapy) INHALATION 07/19/24 05:01 DAILY@0500 [facility] Spironolactone 25 mg 07/16/24 09:00 07/16/24 09:31 Spironolactone 25 Mg Tablet PO 25 mg DAILY [facility] Administration Tacrolimus 1 applic 07/16/24 07:38 Tacrolimus 0.1% 30 Gm Ointment TOPICAL BID PRN PSORIASIS Thiamine HCl 100 mg 07/16/24 09:00 07/16/24 08:14 Thiamine Hcl 100 Mg Tablet PO 100 mg DAILY [facility] Administration Tramadol HCl 50 mg 07/16/24 07:38 07/16/24 12:14 Tramadol Hcl (*Crx) 50 Mg Tablet PO 50 mg Q6H PRN Administration pain Triamcinolone Acetonide 1 applic 07/16/24 07:38 Triamcinolone Acet 0.1% Cream 15 Gm Tube TOPICAL BID PRN PSORIASIS Radiology Results: ITS Impressions Chest/Abdomen/Pelvis CT 07/15/24 16:21 IMPRESSION: CHEST: 1. No pulmonary embolism or aortic dissection. 2. Right basilar atelectasis versus pneumonia with moderate right pleural e ffusion. Clinical correlation advised. 3. Healing rib fractures in the right hemithorax. 4. Nodule in the left upper lobe unchanged from previous examination. ABDOMEN/PELVIS: 1. No evidence of appendicitis, diverticulitis or intestinal obstruction. 2. Fat infiltration of the liver. 3. Distended gallbladder with no definite stones. 4. Slightly prominent CBD measuring 1.1 cm. Prominent pancreatic duct also noted. Follow-up advised. CT chest abdomen pelvis w con, CT thoracic lumbar wo con Ordering provider: Chris Mccracken MD History: . fall back,flank pain. abnormal chest xray . Comparison: None. Technique: CT thoracic spine without contrast. Automated exposure control and iterative reconstruction technique were employed. The dose-length product was 261.08 mGy-cm. FINDINGS: [place]RA[place]: Small bony fragment seen near to the spinous process of T4 which is most likely chronic. Clinical evaluation for tenderness in the area advised. Otherwise, Normal height and alignment. No subluxation or visible acute fracture. Kyphosis is seen. DISC SPACES: Well maintained. No significant stenosis as visualized. PARASPINOUS SOFT TISSUES: Normal. IMPRESSION: Small bony fragment near to the spinous process of T4 which is most likely chronic. Clinical correlation advised. Otherwise, No acute osseous abnormality of the thoracic spine. CT chest abdomen pelvis w con, CT thoracic lumbar wo con Ordering provider: Chris Mccracken MD History: 73 years Female with . fall back,flank pain. abnormal chest xray . Comparison: None. Technique: CT lumbar spine without contrast. Automated exposure control and iterative reconstruction technique were employed. The dose-length product was 261.08 mGy-cm. FINDINGS: VER[place]BRAE: Normal height and alignment. No subluxation or visible acute fracture. Sclerotic areas seen in the right transverse process of L2. Follow-up advised. DISC SPACES: Well maintained. Degenerative disc disease seen at the level of L5- S1. Spinal canal stenosis seen at the level of L4-L5 with diffuse disc bulge and bilateral narrowing of the foramina. Right nerve compression is highly suggestive. Diffuse disc bulge at the level of L3. PARASPINOUS SOFT TISSUES: Moderate atheromatous disease of the abdominal aorta. IMPRESSION: No acute osseous abnormalities. Moderate spinal canal stenosis at the level of L4-5 with bilateral narrowing of the foramina and highly suggestive right nerve root compression. MRI evaluation advised. Thoracic/Lumbar Spine CT 07/15/24 16:21 IMPRESSION: CHEST: 1. No pulmonary embolism or aortic dissection. 2. Right basilar atelectasis versus pneumonia with moderate right pleural effusion. Clinical correlation advised. 3. Healing rib fractures in the right hemithorax. 4. Nodule in the left upper lobe unchanged from previous examination. ABDOMEN/PELVIS: 1. No evidence of appendicitis, diverticulitis or intestinal obstruction. 2. Fat infiltration of the liver. 3. Distended gallbladder with no definite stones. 4. Slightly prominent CBD measuring 1.1 cm. Prominent pancreatic duct also noted. Follow-up advised. CT chest abdomen pelvis w con, CT thoracic lumbar wo con Ordering provider: Chris Mccracken MD History: . fall back,flank pain. abnormal chest xray . Comparison: None. Technique: CT thoracic spine without contrast. Automated exposure control and iterative reconstruction technique were employed. The dose-length product was 261.08 mGy-cm. FINDINGS: [place]: Small bony fragment seen near to the spinous process of T4 which is most likely chronic. Clinical evaluation for tenderness in the area advised. Otherwise, Normal height and alignment. No subluxation or visible acute fracture. Kyphosis is seen. DISC SPACES: Well maintained. No significant stenosis as visualized. PARASPINOUS SOFT TISSUES: Normal. IMPRESSION: Small bony fragment near to the spinous process of T4 which is most likely chronic. Clinical correlation advised. Otherwise, No acute osseous abnormality of the thoracic spine. CT chest abdomen pelvis w con, CT thoracic lumbar wo con Ordering provider: Chris Mccracken MD History: 73 years Female with . fall back,flank pain. abnormal chest xray . Comparison: None. Technique: CT lumbar spine without contrast. Automated exposure control and iterative reconstruction technique were employed. The dose-length product was 261.08 mGy-cm. FINDINGS: [place]RA[place]: Normal height and alignment. No subluxation or visible acute fracture. Sclerotic areas seen in the right transverse process of L2. Follow-up advised. DISC SPACES: Well maintained. Degenerative disc disease seen at the level of L5- S1. Spinal canal stenosis seen at the level of L4-L5 with diffuse disc bulge and bilateral narrowing of the foramina. Right nerve compression is highly suggestive. Diffuse disc bulge at the level of L3. PARASPINOUS SOFT TISSUES: Moderate atheromatous disease of the abdominal aorta. IMPRESSION: No acute osseous abnormalities. Moderate spinal canal stenosis at the level of L4-5 with bilateral narrowing of the foramina and highly suggestive right nerve root compression. MRI evaluation advised. Chest X-Ray 07/16/24 15:36 IMPRESSION: 1. Decrease in size of a now very small right pleural effusion and a portion which is loculated along the right major fissure post thoracentesis. No pneumothorax. 2. Opacities in the right lower lung zone consistent with right lower lobe pneumonia. Thoracentesis Ultrasound 07/16/24 15:40 IMPRESSION: 1. Successful ultrasound-guided thoracentesis yielding 600 mL of cloudy straw- colored fluid. Labs Labs: Laboratory Results - last 24 hr 07/16/24 07/16/24 07/16/24 04:52 07:25 07:49 WBC 21.1 H RBC 3.40 L Hgb 11.3 L Hct 34.7 L MCV 102.1 H MCH 33.2 MCHC 32.6 RDW 13.4 Plt Count 734 H MPV 9.5 Immature Gran % (Auto) 0.6 H Neut % (Auto) 88.9 H Lymph % (Auto) 4.0 L [place] % (Auto) 5.9 Eos % (Auto) 0.0 Baso % (Auto) 0.6 Lymph # (Auto) 0.84 L [place] # (Auto) 1.3 H Eos # (Auto) 0.0 Baso # (Auto) 0.1 Abs Immat Gran (auto) 0.12 H Absolute Neuts (auto) 18.7 H Absolute Nucleated RBC 0.000 Nucleated RBC % 0.0 PT INR APTT Sodium 135 L Potassium 3.8 Chloride 96 L Carbon Dioxide 25 Anion Gap 14 H BUN 15 D Creatinine 0.52 L Estim Creat Clear Calc 72 Estimated GFR > 60 Glucose 82 Lactic Acid 1.1 Calcium 8.3 L Magnesium 2.4 H Total Bilirubin Lactate Dehydrogenase Total Protein Albumin Triglycerides Cholesterol Amylase Procalcitonin 12.3 Urine Color Yellow Urine Appearance Clear Urine pH 5.5 Ur Specific [place] > 1.045 H Urine Protein Trace Urine Glucose (UA) 3+ H Urine Ketones 1+ H Ur Blood (Man) Negative Urine Nitrate Negative Urine Bilirubin Negative Urine Urobilinogen 1.0 Leukocyte Esterase Rfl Negative Urine RBC 0-2 Urine WBC 0-5 Ur Squamous Epith Cells Occasional Urine Bacteria None seen Urine Casts 0-2 Pleural Fluid Source Pleural Color Pleural Appearance Pleural pH Pleural RBC Pleural Nuc Cells Pleural Neutrophils Pleural Lymphocytes Pleural Monocytes Pleural Macrophages Nasal MRSA (PCR) 07/16/24 07/16/24 07/16/24 09:28 11:40 15:06 WBC RBC Hgb Hct MCV MCH MCHC RDW Plt Count MPV Immature Gran % (Auto) Neut % (Auto) Lymph % (Auto) [place] % (Auto) Eos % (Auto) Baso % (Auto) Lymph # (Auto) [place] # (Auto) Eos # (Auto) Baso # (Auto) Abs Immat Gran (auto) Absolute Neuts (auto) Absolute Nucleated RBC Nucleated RBC % PT 17.1 H INR 1.4 APTT 41.7 H Sodium Potassium Chloride Carbon Dioxide Anion Gap BUN Creatinine Estim Creat Clear Calc Estimated GFR Glucose 74 Lactic Acid Calcium Magnesium Total Bilirubin 0.5 Lactate Dehydrogenase < 200 Total Protein 5.0 L Albumin 2.1 L Triglycerides 68 Cholesterol 89 Amylase < 30 L Procalcitonin Urine Color Urine Appearance Urine pH Ur Specific [place] Urine Protein Urine Glucose (UA) Urine Ketones Ur Blood (Man) Urine Nitrate Urine Bilirubin Urine Urobilinogen Leukocyte Esterase Rfl Urine RBC Urine WBC Ur Squamous Epith Cells Urine Bacteria Urine Casts Pleural Fluid Source Pleural fluid Pleural Color Yellow Pleural Appearance Cloudy Pleural pH 7.105 L Pleural RBC < 2000 Pleural Nuc Cells 5526 H Pleural Neutrophils 76 H Pleural Lymphocytes 7 Pleural Monocytes 2 Pleural Macrophages 15 Nasal MRSA (PCR) Not detected Quality VTE Prophylaxis VTE prophylaxis: mechanical ordered
[2024-07-16] MEDS: ENOXAPARIN 60 MG/0.6 ML SYRINGE 55 MG SUB-Q (20:07)
[2024-07-16] MEDS: PIPERACILLN/TAZ 3.375GM/NS50ML 3.375 GM/50 ML BAG IVPB (20:08)
[2024-07-17] VITALS (22 sets, daily range): BP systolic 94–119; BP diastolic 47–66; PULSE 88–153; RESP 16–20; TEMP 36.4–36.9; O2SAT 95–98
[2024-07-17] MEDS: IPRATROPIUM BR 0.02% INH SOLN 0.5 MG/2.5 ML VIAL INHALATION ×3 (01:52→14:28)
[2024-07-17] MEDS: LEVALBUTEROL NEB 1.25 MG/3 ML INHALATION ×3 (01:52→14:28)
[2024-07-17] MEDS: PIPERACILLN/TAZ 3.375GM/NS50ML 3.375 GM/50 ML BAG IVPB ×3 (01:57→14:34)
[2024-07-17 04:37] LABS: Estimated CRCL calculation 41 ml/min; Estimated Glomerular Filt Rate 57
[2024-07-17] MEDS: SODIUM CHLOR 3% 15 ML NEB (RESPIRATORY THERAPY) 6 ML INHALATION (04:40)
[2024-07-17] MEDS: ACETAMINOPHEN 325 MG TABLET 650 MG PO ×2 (05:04→12:13)
[2024-07-17 06:33] LABS: MRSA (PCR) NOT DETECTED (NOT DETECTE)
[2024-07-17] MEDS: ENOXAPARIN 60 MG/0.6 ML SYRINGE 55 MG SUB-Q (09:02)
[2024-07-17] MEDS: DOXYCYCLINE 100 MG/NS 100 ML 100 MG/100 ML BAG IVPB (09:03)
[2024-07-17] MEDS: LIDOCAINE 5% PATCH 1 PATCH TRANSDERM (09:04)
[2024-07-17] MEDS: DOCUSATE SODIUM 100 MG CAPSULE PO (09:04)
[2024-07-17] MEDS: SPIRONOLACTONE 25 MG TABLET PO (09:05)
[2024-07-17] MEDS: FERROUS SULFATE 325 MG TABLET DR PO (09:05)
[2024-07-17] MEDS: THIAMINE HCL 100 MG TABLET PO (09:05)
[2024-07-17] MEDS: GABAPENTIN 300 MG CAPSULE PO ×2 (09:05→12:13)
[2024-07-17] MEDS: SACUBITRIL/VALSARTAN 24-26 MG TABLET 1 TAB PO (09:05)
[2024-07-17] MEDS: ASPIRIN 81 MG ENTERIC TABLET PO (09:05)
[2024-07-17] MEDS: EZETIMIBE 10 MG TABLET PO (09:06)
[2024-07-17] MEDS: METOPROLOL SUCCINATE EXT REL 25 MG TABCR PO (09:06)
[2024-07-17] MEDS: traMADol HCL (*CRX) 50 MG TABLET PO (09:07)
[2024-07-17] MEDS: predniSONE 20 MG TABLET 40 MG PO (09:08)
[2024-07-17] MEDS: EMPAGLIFLOZIN 10 MG TABLET PO (09:08)
[2024-07-17] MEDS: PANTOPRAZOLE 40 MG TABLET PO (09:08)
[2024-07-17] MEDS: IPRATROPIUM NASAL SPRAY 0.03% 15 ML BOTTLE 2 SPRAY NASAL ×2 (09:16→12:14)
--- NOTE | 2024-07-17 09:28 | ECG_ITS ---
Test Date: 2024-07-17 09:54:03 Measurements Intervals [place] Rate: 104 P: 0 OK: 0 QRS: -9 QRSD: 145 T: 132 QT: 378 QTc: 498 Interpretive Statements SINUS TACHYCARDIA INTRAVENTRICULAR CONDUCTION DELAY [130+ ms QRS DURATION] ANTEROLATERAL MYOCARDIAL INFARCTION , OF INDETERMINATE AGE Compared to ECG 07/16/2024 07:04:45 Atrial fibrillation no longer present Electronically Signed On 07-17-2024 15:01:37 CDT by Kortney Farley M.D.
--- NOTE | 2024-07-17 11:05 | PCPTNOTE ---
Spoke with current hospitalist, NAKUL to remove therapy orders due to pt condition. Nurse notified.
[2024-07-17 11:10] LABS: Hematocrit 28.2 % (37.0-47.0); Hemoglobin 8.6 g/dL (12.0-15.0); Mean Corpuscular HGB Conc 30.5 g/dl (32-36); Mean Corpuscular Hemoglobin 33.3 pg (26-34); Mean Corpuscular Volume 109.3 fl (80-100); Mean Platelet Volume 10.1 fl (7.4-10.4); Platelet Count Result 610 k/mm3 (150-375); Red Blood Count 2.58 M/mm3 (4.2-5.4); Red Cell Distribution Width 13.8 % (11.5-14.5); White Blood Count 17.4 K/mm3 (4.5-10.0)
[2024-07-17 11:40] LABS: Anion Gap 11 mmol/L (4-12); Blood Urea Nitrogen 27 mg/dL (7-17); Calcium 7.2 mg/dL (8.4-10.2); Carbon Dioxide 23 mmol/L (22-30); Chloride 99 mmol/L (98-107); Estimated CRCL calculation 40 ml/min; Estimated Glomerular Filt Rate 55; Glucose 99 mg/dL (65-110); Magnesium 2.4 mg/dL (1.6-2.3); Potassium 3.6 mmol/L (3.4-5.0); Sodium 133 mmol/L (137-145)
--- NOTE | 2024-07-17 11:54 | P.PNCA_ITS ---
Progress Note: A&P Assessment and Plan (1) Atrial fibrillation: Code(s): I48.91 - Unspecified atrial fibrillation Status: Acute Assessment and Plan: Atrial fibrillation with rapid ventricular response in the setting of pneumonia. This is a new diagnosis for the patient. Chronicity is not known. She spontaneously converted to sinus rhythm but has demonstrated paroxysmal atrial fib/flutter with RVR on telemetry overnight and this morning. Currently in sinus rhythm. * Continue ToprolXL 25mg daily * Ideally would introduce antiarrhythmic therapy, however, options are limited given her severe lung disease, coronary artery disease, and cardiomyopathy * She has a CHADs2 Vasc score of at least 4, therefore anticoagulation is indicated. Start Eliquis 5mg b.i.d. tonight * Continue to monitor on telemetry for now (2) CAD (coronary artery disease): Code(s): I25.10 - Atherosclerotic heart disease of [place] coronary artery without angina pectoris Status: Acute Assessment and Plan: This is stable. Not complaining of any anginal symptoms. * Continue ASA * Continue statin and Zetia (3) Ischemic cardiomyopathy: Code(s): I25.5 - Ischemic cardiomyopathy Status: Acute Assessment and Plan: EF 40%. Appears to be compensated * Continue Entresto * Continue jardiance * Continue spironolactone * As above, adding ToprolXL. Subjective Date/time seen: 07/17/24 11:54 Interval history: Cardiology follow up visit She went back into atrial fibrillation with RVR yesterday during thoracentesis. However she does report feeling better today and feels less short of breath. Review of Systems Review of Systems: All systems reviewed & are unremarkable except as noted in HPI and below Exam Const: General: comfortable, no acute distress, alert and awake Orientation/consciousness: patient oriented x3 HENMT: Head: normal to inspection Eyes: General: appearance normal, both eyes and all related structures Pupils: Equal, round and reactive pupils present Neck: Neck: normal visual inspection, supple and no JVD Carotids: normal carotid upstroke Resp: Effort & Inspection: normal respiratory effort Auscultation: wheezes and diminished lung sounds Cardio: Rate: regular rate Rhythm: regular rhythm Heart sounds: S1 normal heart sound present, S2 normal heart sound present and no murmurs GI: Auscultation: normal bowel sounds Skin: General skin exam: normal color Neuro: General: patient oriented x3 Cranial nerves: Yes Equal, round and reactive pupils present Extrem: General: normal to inspection Psych: Appearance: grossly normal Mental Status: mental status grossly normal Objective Data Vital Signs Vital Signs: Vital Signs - 24 hr 07/16/24 12:00 07/16/24 12:00 07/16/24 14:31 Temperature Pulse Rate 108 H 91 89 Respiratory Rate 18 20 Blood Pressure Pulse Oximetry 95 Oxygen Delivery Nasal Cannula Oxygen Flow Rate 1 07/16/24 16:00 07/16/24 16:00 07/16/24 16:03 Temperature 37.0 C Pulse Rate 108 H 141 H 108 H Respiratory Rate 18 18 Blood Pressure 104/60 Pulse Oximetry 95 95 Oxygen Delivery Nasal Cannula Oxygen Flow Rate 1 07/16/24 18:00 07/16/24 20:00 07/16/24 20:00 Temperature Pulse Rate 94 111 H 125 H Respiratory Rate Blood Pressure Pulse Oximetry 95 Oxygen Delivery Nasal Cannula Oxygen Flow Rate 1 07/16/24 20:10 07/16/24 20:10 07/16/24 20:25 Temperature Pulse Rate 135 H 105 H Respiratory Rate 18 18 Blood Pressure Pulse Oximetry 95 Oxygen Delivery Nasal Cannula Oxygen Flow Rate 1 07/16/24 20:48 07/16/24 21:47 07/16/24 22:58 Temperature 37.1 C Pulse Rate 98 130 H 130 H Respiratory Rate 18 Blood Pressure 106/55 L Pulse Oximetry 96 Oxygen Delivery Oxygen Flow Rate 07/16/24 23:28 07/16/24 23:28 07/17/24 00:00 Temperature 37.1 C Pulse Rate 89 131 H Respiratory Rate 20 Blood Pressure 118/47 L Pulse Oximetry 97 95 Oxygen Delivery Nasal Cannula Oxygen Flow Rate 1 07/17/24 01:52 07/17/24 01:52 07/17/24 01:55 Temperature Pulse Rate 89 89 98 Respiratory Rate 18 18 Blood Pressure Pulse Oximetry 95 Oxygen Delivery Nasal Cannula Oxygen Flow Rate 1 07/17/24 02:05 07/17/24 03:14 07/17/24 03:54 Temperature 36.4 C Pulse Rate 88 129 H Respiratory Rate 16 20 Blood Pressure 106/47 L Pulse Oximetry 96 95 Oxygen Delivery Nasal Cannula Oxygen Flow Rate 1 07/17/24 04:00 07/17/24 04:40 07/17/24 05:50 Temperature Pulse Rate 97 105 H 99 Respiratory Rate 20 Blood Pressure Pulse Oximetry Oxygen Delivery Oxygen Flow Rate 07/17/24 07:56 07/17/24 08:00 07/17/24 08:00 Temperature 36.4 C L Pulse Rate 153 H 107 H Respiratory Rate 18 Blood Pressure 113/66 Pulse Oximetry 98 95 Oxygen Delivery Nasal Cannula Oxygen Flow Rate 1 07/17/24 08:53 07/17/24 08:53 07/17/24 09:03 Temperature Pulse Rate 148 H 114 H Respiratory Rate 20 20 Blood Pressure Pulse Oximetry 95 Oxygen Delivery Nasal Cannula Oxygen Flow Rate 2 07/17/24 09:06 07/17/24 10:00 07/17/24 11:13 Temperature 36.9 C Pulse Rate 111 H 99 101 H Respiratory Rate 18 Blood Pressure 94/53 L Pulse Oximetry 95 Oxygen Delivery Oxygen Flow Rate 07/17/24 11:52 Temperature Pulse Rate Respiratory Rate Blood Pressure Pulse Oximetry 96 Oxygen Delivery Nasal Cannula Oxygen Flow Rate 1 Intake/Output Intake/Output: Intake & Output 07/14/24 07/15/24 07/16/24 07/17/24 23:59 23:59 23:59 23:59 Intake Total 0234 260 1593 Output Total 750 Balance 1400 -310 2940 Meds/Results Medications: Active Medications Generic Name Dose Route Start Last Admin Trade Name Freq PRN Reason Stop Dose Admin Acetaminophen 650 mg 07/16/24 00:00 07/17/24 05:04 Acetaminophen 325 Mg Tablet PO 650 mg Q6HR ALESSIO Administration Apixaban 5 mg 07/17/24 21:00 Apixaban 5 Mg Tablet PO Q12HR [facility] Aspirin 81 mg 07/16/24 09:00 07/17/24 09:05 Aspirin 81 Mg Enteric Tablet PO 81 mg DAILY [facility] Administration Clobetasol Propionate 1 applic 07/16/24 07:38 Clobetasol Propionate 0.05% Cream 15 Gm TOPICAL DAILY PRN PSORIASIS Docusate Sodium 100 mg 07/16/24 09:00 07/17/24 09:04 Docusate Sodium 100 Mg Capsule PO 100 mg BID [facility] Administration Ezetimibe 10 mg 07/16/24 09:00 07/17/24 09:06 Ezetimibe 10 Mg Tablet PO 10 mg DAILY [facility] Administration Empagliflozin 10 mg 07/16/24 09:00 07/17/24 09:08 Empagliflozin 10 Mg Tablet PO 10 mg DAILY ALESSIO Administration Enoxaparin Sodium 55 mg 07/16/24 09:00 07/17/24 09:02 Enoxaparin 60 Mg/0.6 Ml Syringe SUB-Q 55 mg Q12H ALESSIO Administration Ferrous Sulfate 325 mg 07/16/24 09:00 07/17/24 09:05 Ferrous Sulfate [address] PO 325 mg DAILY ALESSIO Administration Fluticasone Propionate 1 spray 07/16/24 07:38 Fluticasone Propionate 0.05% Na Spr 16 Gm Btl (*Bkc) NASAL BID PRN nasal congestion Fluticasone/Umeclidinium/Vilanterol 1 puff 07/16/24 08:00 07/17/24 09:00 Fluticasone/Umeclidin/Vilanter 100-62.5-25 Mcg Ellipta INHALATION Not Given DAILYRT ALESSIO Gabapentin 300 mg 07/15/24 22:20 07/17/24 09:05 Gabapentin 300 Mg Capsule PO 300 mg TID ALESSIO Administration Piperacillin/Tazobactam/Dextrose 3.375 gm in 50 mls @ 100 mls/hr 07/16/24 20:00 07/17/24 09:01 Zosyn 3.375 Gm/Ns 50 Ml IVPB 100 mls/hr Q6H ALESSIO Administration Doxycycline Hyclate 100 mg in 100 mls @ 100 mls/hr 07/16/24 21:00 07/17/24 09:03 Vibramycin 100 Mg/Ns 100 Ml IVPB 100 mls/hr Q12H ALESSIO Administration Vancomycin HCl 1,000 mg in 250 mls @ 250 mls/hr 07/17/24 21:00 Vancomycin 1,000 Mg/Ns 250 Ml IVPB Q24H ALESSIO Ipratropium [place] 2 spray 07/16/24 09:00 07/17/24 09:16 Ipratropium Nasal [place] 0.03% 15 Ml Bottle NASAL 2 spray TID ALESSIO Administration Ipratropium [place] 0.5 mg 07/16/24 08:00 07/17/24 08:51 Ipratropium Br 0.02% Inh Soln 0.5 Mg/2.5 Ml Vial INHALATION 0.5 mg Q6HRT ALESSIO Administration Levalbuterol HCl 1.25 mg 07/16/24 08:00 07/17/24 08:51 Levalbuterol Neb 1.25 Mg/3 Ml INHALATION 1.25 mg Q6HRT ALESSIO Administration Lidocaine 1 patch 07/15/24 22:20 07/17/24 09:04 Lidocaine 5% Patch TRANSDERM 1 patch DAILY ALESSIO Administration Metoprolol Succinate 25 mg 07/17/24 09:00 07/17/24 09:06 Metoprolol Succinate Ext Rel 25 Mg Tabcr PO 25 mg QAM ALESSIO Administration Oxycodone HCl 5 mg 07/15/24 22:19 Oxycodone Hcl (*Crx) 5 Mg Tab Ir PO Q4H PRN Pain Rated 4-6 Oxycodone HCl 10 mg 07/15/24 22:19 Oxycodone Hcl (*Crx) 5 Mg Tab Ir PO Q4H PRN Pain Rated 7-10 Pantoprazole Sodium 40 mg 07/16/24 09:00 07/17/24 09:08 Pantoprazole 40 Mg Tablet PO 40 mg QAM ALESSIO Administration Prednisone 40 mg 07/16/24 08:00 07/17/24 09:08 Prednisone 20 Mg Tablet PO 07/21/24 07:59 40 mg DAILY@0800 ALESSIO Administration Sacubitril/Valsartan 1 tab 07/16/24 09:00 07/17/24 09:05 Sacubitril/Valsartan 24-26 Mg Tablet PO 1 tab Q12HR ALESSIO Administration Sodium Chloride 6 ml 07/17/24 05:00 07/17/24 04:40 Sodium Chlor 3% 15 Ml Neb (Respiratory Therapy) INHALATION 07/19/24 05:01 6 ml DAILY@0500 ALESSIO Administration Spironolactone 25 mg 07/16/24 09:00 07/17/24 09:05 Spironolactone 25 Mg Tablet PO 25 mg DAILY ALESSIO Administration Tacrolimus 1 applic 07/16/24 07:38 Tacrolimus 0.1% 30 Gm Ointment TOPICAL BID PRN PSORIASIS Thiamine HCl 100 mg 07/16/24 09:00 07/17/24 09:05 Thiamine Hcl 100 Mg Tablet PO 100 mg DAILY ALESSIO Administration Tramadol HCl 50 mg 07/16/24 07:38 07/17/24 09:07 Tramadol Hcl (*Crx) 50 Mg Tablet PO 50 mg Q6H PRN Administration pain Triamcinolone Acetonide 1 applic 07/16/24 07:38 Triamcinolone Acet 0.1% Cream 15 Gm Tube TOPICAL BID PRN PSORIASIS Radiology Results: ITS Impressions Chest/Abdomen/Pelvis CT 07/15/24 16:21 IMPRESSION: CHEST: 1. No pulmonary embolism or aortic dissection. 2. Right basilar atelectasis versus pneumonia with moderate right pleural effusion. Clinical correlation advised. 3. Healing rib fractures in the right hemithorax. 4. Nodule in the left upper lobe unchanged from previous examination. ABDOMEN/PELVIS: 1. No evidence of appendicitis, diverticulitis or intestinal obstruction. 2. Fat infiltration of the liver. 3. Distended gallbladder with no definite stones. 4. Slightly prominent CBD measuring 1.1 cm. Prominent pancreatic duct also noted. Follow-up advised. CT chest abdomen pelvis w con, CT thoracic lumbar wo con Ordering provider: Chris Mccracken MD History: . fall back,flank pain. abnormal chest xray . Comparison: None. Technique: CT thoracic spine without contrast. Automated exposure control and iterative reconstruction technique were employed. The dose-length product was 261.08 mGy-cm. FINDINGS: VERTEBRAE: Small bony fragment seen near to the spinous process of T4 which is most likely chronic. Clinical evaluation for tenderness in the area advised. Otherwise, Normal height and alignment. No subluxation or visible acute fracture. Kyphosis is seen. DISC SPACES: Well maintained. No significant stenosis as visualized. PARASPINOUS SOFT TISSUES: Normal. IMPRESSION: Small bony fragment near to the spinous process of T4 which is most likely chronic. Clinical correlation advised. Otherwise, No acute osseous abnormality of the thoracic spine. CT chest abdomen pelvis w con, CT thoracic lumbar wo con Ordering provider: Chris Mccracken MD History: 73 years Female with . fall back,flank pain. abnormal chest xray . Comparison: None. Technique: CT lumbar spine without contrast. Automated exposure control and iterative reconstruction technique were employed. The dose-length product was 261.08 mGy-cm. FINDINGS: VERTEBRAE: Normal height and alignment. No subluxation or visible acute fracture. Sclerotic areas seen in the right transverse process of L2. Follow-up advised. DISC SPACES: Well maintained. Degenerative disc disease seen at the level of L5- S1. Spinal canal stenosis seen at the level of L4-L5 with diffuse disc bulge and bilateral narrowing of the foramina. Right nerve compression is highly suggestive. Diffuse disc bulge at the level of L3. PARASPINOUS SOFT TISSUES: Moderate atheromatous disease of the abdominal aorta. IMPRESSION: No acute osseous abnormalities. Moderate spinal canal stenosis at the level of L4-5 with bilateral narrowing of the foramina and highly suggestive right nerve root compression. MRI evaluation advised. Thoracic/Lumbar Spine CT 07/15/24 16:21 IMPRESSION: CHEST: 1. No pulmonary embolism or aortic dissection. 2. Right basilar atelectasis versus pneumonia with moderate right pleural effusion. Clinical correlation advised. 3. Healing rib fractures in the right hemithorax. 4. Nodule in the left upper lobe unchanged from previous examination. ABDOMEN/PELVIS: 1. No evidence of appendicitis, diverticulitis or intestinal obstruction. 2. Fat infiltration of the liver. 3. Distended gallbladder with no definite stones. 4. Slightly prominent CBD measuring 1.1 cm. Prominent pancreatic duct also noted. Follow-up advised. CT chest abdomen pelvis w con, CT thoracic lumbar wo con Ordering provider: Chris Mccracken MD History: . fall back,flank pain. abnormal chest xray . Comparison: None. Technique: CT thoracic spine without contrast. Automated exposure control and iterative reconstruction technique were employed. The dose-length product was 261.08 mGy-cm. FINDINGS: VERTEBRAE: Small bony fragment seen near to the spinous process of T4 which is most likely chronic. Clinical evaluation for tenderness in the area advised. Otherwise, Normal height and alignment. No subluxation or visible acute fracture. Kyphosis is seen. DISC SPACES: Well maintained. No significant stenosis as visualized. PARASPINOUS SOFT TISSUES: Normal. IMPRESSION: Small bony fragment near to the spinous process of T4 which is most likely chronic. Clinical correlation advised. Otherwise, No acute osseous abnormality of the thoracic spine. CT chest abdomen pelvis w con, CT thoracic lumbar wo con Ordering provider: Chris Mccracken MD History: 73 years Female with . fall back,flank pain. abnormal chest xray . Comparison: None. Technique: CT lumbar spine without contrast. Automated exposure control and iterative reconstruction technique were employed. The dose-length product was 261.08 mGy-cm. FINDINGS: VERTEBRAE: Normal height and alignment. No subluxation or visible acute fracture. Sclerotic areas seen in the right transverse process of L2. Follow-up advised. DISC SPACES: Well maintained. Degenerative disc disease seen at the level of L5- S1. Spinal canal stenosis seen at the level of L4-L5 with diffuse disc bulge and bilateral narrowing of the foramina. Right nerve compression is highly suggestive. Diffuse disc bulge at the level of L3. PARASPINOUS SOFT TISSUES: Moderate atheromatous disease of the abdominal aorta. IMPRESSION: No acute osseous abnormalities. Moderate spinal canal stenosis at the level of L4-5 with bilateral narrowing of the foramina and highly suggestive right nerve root compression. MRI evaluation advised. Thoracentesis Ultrasound 07/16/24 15:40 IMPRESSION: 1. Successful ultrasound-guided thoracentesis yielding 600 mL of cloudy straw- colored fluid. Chest X-Ray 07/17/24 08:48 IMPRESSION: 1. Right lower lobe pneumonia with small right pleural effusion a portion which remains loculated along the major fissure. Labs Labs: Laboratory Results - last 24 hr 07/16/24 07/16/24 07/17/24 11:40 15:06 04:02 WBC 17.4 H RBC 2.58 L Hgb 8.6 L Hct 28.2 L MCV 109.3 H D MCH 33.3 MCHC 30.5 L RDW 13.8 Plt Count 610 H MPV 10.1 PT 17.1 H INR 1.4 APTT 41.7 H Sodium 133 L Potassium 3.6 Chloride 99 Carbon Dioxide 23 Anion Gap 11 BUN 27 H D Creatinine 0.96 Estim Creat Clear Calc Estimated GFR Glucose 74 Calcium Magnesium Total Bilirubin 0.5 Lactate Dehydrogenase < 200 Total Protein 5.0 L Albumin 2.1 L Triglycerides 68 Cholesterol 89 Amylase < 30 L Pleural Fluid Source Pleural fluid Pleural Color Yellow Pleural Appearance Cloudy Pleural pH 7.105 L Pleural RBC < 2000 Pleural Nuc Cells 5526 H Pleural Neutrophils 76 H Pleural Lymphocytes 7 Pleural Monocytes 2 Pleural Macrophages 15 Nasal MRSA (PCR) 07/17/24 07/17/24 07/17/24 04:02 04:02 04:02 WBC RBC Hgb Hct MCV MCH MCHC RDW Plt Count MPV PT INR APTT Sodium Potassium Chloride Carbon Dioxide Anion Gap BUN Creatinine 0.99 Estim Creat Clear Calc 41 40 Estimated GFR 57 L 55 L Glucose 99 Calcium 7.2 L Magnesium 2.4 H Total Bilirubin Lactate Dehydrogenase Total Protein Albumin Triglycerides Cholesterol Amylase Pleural Fluid Source Pleural Color Pleural Appearance Pleural pH Pleural RBC Pleural Nuc Cells Pleural Neutrophils Pleural Lymphocytes Pleural Monocytes Pleural Macrophages Nasal MRSA (PCR) 07/17/24 05:07 WBC RBC Hgb Hct MCV MCH MCHC RDW Plt Count MPV PT INR APTT Sodium Potassium Chloride Carbon Dioxide Anion Gap BUN Creatinine Estim Creat Clear Calc Estimated GFR Glucose Calcium Magnesium Total Bilirubin Lactate Dehydrogenase Total Protein Albumin Triglycerides Cholesterol Amylase Pleural Fluid Source Pleural Color Pleural Appearance Pleural pH Pleural RBC Pleural Nuc Cells Pleural Neutrophils Pleural Lymphocytes Pleural Monocytes Pleural Macrophages Nasal MRSA (PCR) Not detected Quality VTE Prophylaxis VTE prophylaxis: mechanical ordered
--- NOTE | 2024-07-17 12:56 | P.CONPL_ITS ---
Assessment and Plan Assessment and plan (1) Pleural effusion on right: Code(s): J90 - Pleural effusion, not elsewhere classified Status: Acute Assessment and Plan: Regarding her chronic right lower lobe ground-glass infiltrate not present on 04/15/2020. Small area right posterior dependent lower lobe on 04/28/2021 that has increased in size on subsequent CT scans of the chest on 04/29/2022, 07/27/2022, 01/26/2023, 01/24/2024, 04/16/2024, improved in size on 05/29/2024 with mild uptake on PET CT. 07/14/2024 patient slid off her bed and hit her right side, presented to the hospital with chest pain and CT scan of the chest demonstrated healing fractures right 4th 5th 6th and 7th ribs. She had a loculated right pleural effusion With consolidation of the right lower lobe and white blood cell count of 19.4. She developed AFib RVR. She was treated with Rocephin and azithromycin as well as Solu-Medrol. 07/16/2024 patient underwent of a right thoracentesis. Ultrasound demonstrated a complex right effusion with multiple septations. 600 mL of cloudy straw fluid was removed with pH of 7.11. White blood cell count 5526 with differential 76% neutrophils, 7% lymphocytes, 2% monocytes, 15% macrophages. G stain shows few white blood cells and no organisms. Chest x-ray postprocedure showed a loculated right pleural effusion. Remainder of studies are pending. Patient has been listed to transfer to higher level of care for thoracic surgery consultation regarding this complicated right pleural effusion. 07/17/24: Patient says she is clinically improved. Chest x-ray showed continued loculated right pleural effusion. Plan: Agree with transfer to [facility] for evaluation by thoracic surgery. Would continue vancomycin, Zosyn and Levaquin pending this evaluation. Patient developed new onset AFib with RVR and Cardiology is recommending Eliquis. I would not give her oral anticoagulants pending transfer as she may need a surgical procedure. Recommend Lovenox bridge. Discussed with Dr. Rodriguez. Will sign off, call with questions. (2) Lung nodule: Code(s): R91.1 - Solitary pulmonary nodule Status: Acute Assessment and Plan: Regarding her left upper lobe nodule CT scan of the chest on 04/16/2024 with a left 9 mm left upper lobe nodule increased from 7 mm on 01/24/2024. CT PET on 05/29/2024 with moderate increased activity of an 11 mm left upper lobe nodule concerning for primary bronchogenic carcinoma. Patient underwent an attempted to CT-guided needle biopsy on 06/22/2024 but developed a pneumothorax prior to any specimens. She was admitted to the hospital and chest tube continued to have an air leak and was transferred to [facility] on 06/25/2024. Patient tells me they monitor her and discontinued the chest tube and she was sent home on no oxygen. She was to follow-up with thoracic surgery as an outpatient. 07/17/24: Plan: Patient with an enlarging PET positive left upper lobe 11 mm nodule. Patient had a pneumothorax with attempted biopsy at [facility] and no specimens were obtained. She was scheduled to follow-up with thoracic surgery at [facility]. Plan now to transfer patient to [facility] for her complicated right pleural effusion and so that she can be evaluated by thoracic surgery for consideration of repeat attempted CT-guided biopsy verse wedge resection. (3) COPD (chronic obstructive pulmonary disease): Qualifiers: COPD type: unspecified COPD Qualified Code(s): J44.9 - Chronic obstructive pulmonary disease, unspecified Code(s): J44.9 - Chronic obstructive pulmonary disease, unspecified Status: Acute Assessment and Plan: Patient with a history of COPD, Alpha 1 anti trypsin MM, PFTs 09/11/2019 with an FEV1 is 0.95 L, 43% predicted. Bronchodilator response, hyperinflation with a TLC of 170, air trapping with a residual volume of 276 and a DLCO of 58% predicted. First CT scan in our system 07/02/2017 demonstrates moderate apical predominant centrilobular emphysema. 07/17/24: currently the patient states she is breathing better than she was a month ago, no cough or phlegm production. She has no wheezing. Plan: I will discontinue prednisone at this time while we are awaiting for cultures. Would like to avoid prednisone in the setting of an empyema.. I will continue her on levalbuterol and ipratropium nebulizers at Q 6 hours. I will discontinue trelegy. Currently on 1 L nasal cannula saturations 95%. History of Present Illness History of Present Illness Consult date: 07/17/24 Chief complaint: Right Sided Pneumonia/Pleural Effusion/ SOB Narrative: 07/17/2024: This is a new pulmonary consult for complicated right pleural effusion. 73-year-old with a history of coronary artery disease, hypertension, COPD, left upper lobe lung nodule, Chronic right lower lobe ground-glass infiltrate. Patient with a history of COPD, Alpha 1 anti trypsin MM, PFTs 09/11/2019 with an FEV1 is 0.95 L, 43% predicted. Bronchodilator response, hyperinflation with a TLC of 170, air trapping with a residual volume of 276 and a DLCO of 58% predicted. for CT scan in our system demonstrates moderate apical predominant centrilobular emphysema. Regarding her left upper lobe nodule CT scan of the chest on 04/16/2024 with a left 9 mm left upper lobe nodule increased from 7 mm on 01/24/2024. CT PET on 05/29/2024 with moderate increased activity of an 11 mm left upper lobe nodule concerning for primary bronchogenic carcinoma. Patient underwent an attempted to CT-guided needle biopsy on 06/22/2024 but developed a pneumothorax prior to any specimens. She was admitted to the hospital and chest tube continued to have an air leak and was transferred to [facility] on 06/25/2024. Patient tells me they monitor her and discharge continued the chest tube and she was sent home on no oxygen. Regarding her chronic right lower lobe ground-glass infiltrate not present on 04/15/2020. Small area right posterior dependent lower lobe on 04/28/2021 that has increased in size on subsequent CT scans of the chest on 04/29/2022, 07/27/2022, 01/26/2023, 01/24/2024, 04/16/2024, improved in size on 05/29/2024 with mild uptake on PET CT. 07/14/2024 patient slid off her bed and hit her right side, presented to the hospital with chest pain and CT scan of the chest demonstrated healing fractures right 4th 5th 6th and 7th ribs. She had a loculated right pleural effusion With consolidation of the right lower lobe and white blood cell count of 19.4. She developed AFib RVR. She was treated with Rocephin and azithromycin as well as Solu-Medrol. 07/16/2024 patient underwent of a right thoracentesis. Ultrasound demonstrated a complex right effusion with multiple septations. 600 mL of cloudy straw fluid was removed with pH of 7.11. White blood cell count 5526 with differential 76% neutrophils, 7% lymphocytes, 2% monocytes, 15% macrophages. G stain shows few white blood cells and no organisms. Chest x- ray postprocedure showed a loculated right pleural effusion. Patient had a white blood cell count of 21.1. I was called with these results and spoke with hospitalist and I recommended transfer to higher level of care for a complicated right pleural effusion. Recommended vancomycin, Zosyn and Levaquin. 07/17/2024: Patient tells me she is breathing better. She still has some shortness of breath but this is improved. She is afebrile. White blood cell count 17.4. Creatinine is 0.96. Chest x-ray today showed continued loculation of the right pleural effusion. currently the patient is on 1 L nasal cannula oxygen with saturations 95%. DATA: 07/16/24: EXAMINATION: US thoracentesis DATE: 07/16/2024 15:33 INDICATION: Right pleural effusion TECHNIQUE: The procedure and its risks and benefits were discussed with the patient. Potential risks discussed included bleeding, infection, and pneumothorax. The patient understood the risks and agreed to proceed. The skin was prepped and draped in sterile fashion. 1% lidocaine was used for local anesthesia. Under ultrasound guidance, a 5 Fr catheter with trochar was advanced into the right pleural effusion. Fluid was aspirated. The catheter was removed, and a dressing was applied. There were no immediate complications. FINDINGS: Ultrasound images demonstrate a small complex right pleural effusion with multiple internal septations and the catheter within the fluid. IMPRESSION: 1. Successful ultrasound-guided thoracentesis yielding 600 mL of cloudy straw- colored fluid. 07/15/24: CT chest abdomen pelvis w con, CT thoracic lumbar wo con History: 73 years Female with . fall back,flank pain. abnormal chest xray . Comparison: April 16, 2024 FINDINGS: CHEST: --VISUALIZED THORACIC INLET: Normal. --MEDIASTINUM: Aorta/coronary arteries: Mild atheromatous disease. Heart/other: The heart is not enlarged. Lymph nodes: No mediastinal or hilar adenopathy. --LUNGS: Right basilar atelectasis versus pneumonia with moderate right pleural effusion. Clinical correlation advised. Nodule in the left upper lobe anteriorly is again demonstrated unchanged from previous examination. No pulmonary masses. No pneumothorax. Calcified granuloma is seen in the right lower lobe. Pleural calcification also seen. --MUSCULOSKELETAL: Soft tissues: The superficial soft tissues are normal. Bones: Healing fracture is seen in the right fourth, fifth, sixth and seventh ribs. Age appropriate degenerative changes of the spine. ABDOMEN/PELVIS: --MUSCULOSKELETAL: Bones: Age appropriate degenerative changes of the spine. No suspicious bony lytic or sclerotic lesions. Superficial soft tissues: The superficial soft tissues are normal. --UPPER ABDOMINAL ORGANS: Liver: Fat infiltration. Slightly prominent CBD. Gallbladder: Distended with no definite stones. Spleen: Normal. Stomach/duodenum: Slightly thickened wall of the stomach. Clinical correlation advised. Pancreas: Normal. Prominent pancreatic duct. Clinical correlation and follow-up advised. Pancreatic divisum is not excluded. Adrenals: Normal. Kidneys: Normal. --PELVIC ORGANS: The bladder is normal. No bladder stones. --BOWEL AND MESENTERY: Colon: No evidence of diverticulitis.. Appendix is not demonstrated. Small Bowel: Normal. No obstruction. Peritoneum/mesentery: No free air or free fluid. No mesenteric lymphadenopathy. --RETROPERITONEUM: Mild atheromatous disease of the abdominal aorta. No retroperitoneal lymphadenopathy. IMPRESSION: CHEST: 1. No pulmonary embolism or aortic dissection. 2. Right basilar atelectasis versus pneumonia with moderate right pleural effusion. Clinical correlation advised. 3. Healing rib fractures in the right hemithorax. 4. Nodule in the left upper lobe unchanged from previous examination. ABDOMEN/PELVIS: 1. No evidence of appendicitis, diverticulitis or intestinal obstruction. 2. Fat infiltration of the liver. 3. Distended gallbladder with no definite stones. 4. Slightly prominent CBD measuring 1.1 cm. Prominent pancreatic duct also noted. Follow-up advised. CT chest abdomen pelvis w con, CT thoracic lumbar wo con Ordering provider: Chris Mccracken MD History: . fall back,flank pain. abnormal chest xray . Comparison: None. Technique: CT thoracic spine without contrast. Automated exposure control and iterative reconstruction technique were employed. The dose-length product was 261.08 mGy-cm. FINDINGS: VERTEBRAE: Small bony fragment seen near to the spinous process of T4 which is most likely chronic. Clinical evaluation for tenderness in the area advised. Otherwise, Normal height and alignment. No subluxation or visible acute fracture. Kyphosis is seen. DISC SPACES: Well maintained. No significant stenosis as visualized. PARASPINOUS SOFT TISSUES: Normal. IMPRESSION: Small bony fragment near to the spinous process of T4 which is most likely chronic. Clinical correlation advised. Otherwise, No acute osseous abnormality of the thoracic spine. CT chest abdomen pelvis w con, CT thoracic lumbar wo con Ordering provider: Chris Mccracken MD History: 73 years Female with . fall back,flank pain. abnormal chest xray . Comparison: None. Technique: CT lumbar spine without contrast. Automated exposure control and iterative reconstruction technique were employed. The dose-length product was 261.08 mGy-cm. FINDINGS: VERTEBRAE: Normal height and alignment. No subluxation or visible acute fracture. Sclerotic areas seen in the right transverse process of L2. Follow-up advised. DISC SPACES: Well maintained. Degenerative disc disease seen at the level of L5- S1. Spinal canal stenosis seen at the level of L4-L5 with diffuse disc bulge and bilateral narrowing of the foramina. Right nerve compression is highly suggestive. Diffuse disc bulge at the level of L3. PARASPINOUS SOFT TISSUES: Moderate atheromatous disease of the abdominal aorta. IMPRESSION: No acute osseous abnormalities. Moderate spinal canal stenosis at the level of L4-5 with bilateral narrowing of the foramina and highly suggestive right nerve root compression. MRI evaluation advised. 06/22/24: EXAMINATION: CT biopsy lung w/imaging, CT chest tube placement w img DATE: 06/22/2024 13:15 INDICATION: FDG avid left lung nodule TECHNIQUE: The procedure including the risks and benefits was discussed with the patient. Risks discussed included infection, approximately 1/20 risk of symptomatic hemorrhage beyond mild hemoptysis, approximately 1/3 risk of pneumothorax, and approximately 1/10 risk of pneumothorax severe enough to warrant chest tube placement. The patient understood the risks and agreed to proceed. The patient was placed supine. The skin overlying the left anterior chest was prepped and draped in sterile fashion. Anesthetic was administered with 1% lidocaine subcutaneously. A 19 gauge outer needle was advanced under CT guidance to near the lesion of interest. During the biopsy a pneumothorax developed. Air was aspirated from the pneumothorax but continued to reaccumulate precluding further attempts at biopsy which was terminated without obtaining a specimen. Given the continuing relatively rapid progression of the pneumothorax was elected to transition to chest tube placement. The patient's oxygen saturation is began to decrease from 100% on room air to 94%. The patient was placed on 4 L oxygen nasal cannula with return to 100% oxygen saturation. A J-wire was advanced through the needle into the pneumothorax. Utilizing Seldinger technique the needle was removed over the wire and the tract serially dilated to 8 Japanese. An 8.5 Japanese catheter was then advanced over the wire with position confirmed by CT. The loop was formed and locked and the catheter stitched to the skin. Sterile Vaseline impregnated gauze was placed around the catheter access site and a sterile dressing applied. An additional adhesive fixation device was applied. The pneumothorax was manually aspirated and the patient was transferred to the postoperative recovery area pending admission. Chest radiograph obtained post chest tube placement demonstrated resolution of the left pneumothorax. The dose-length product was 60.14 mGy-cm for the biopsy portion of the examination and 113.22 mGy-cm for the chest tube placement. FINDINGS: CT images demonstrate the outer needle tip adjacent to the 1.1 cm left upper lobe nodule of concern with a tiny pneumothorax. Subsequent images demonstrate gradual increase in size of a pneumothorax resulting in dislodgment of the needle from the lung. Final images demonstrate placement of a left chest tube into the pneumothorax. IMPRESSION: 1. Unsuccessful attempt at CT-guided biopsy of an 11 mm left upper lobe pulmonary nodule complicated by development of a symptomatic left pneumothorax. 2. Successful CT-guided chest tube placement with resolution of the left pneumothorax. EXAMINATION: PET skull to mid thigh DATE: 05/29/2024 12:11 INDICATION: Solitary pulmonary nodule TECHNIQUE: Blood glucose level was 103 mg/dL. 10.897 mCi of 18- fluorodeoxyglucose (18-FDG) was administered i.v. Low dose computed tomography (CT) images were acquired from the base of the brain to the proximal thighs for attenuation correction and anatomic localization. Positron emission tomography (PET) images were acquired in the same distribution beginning 89 minutes after injection. Images including fused PET/CT images were reconstructed in axial, coronal, and sagittal planes. Automated exposure control technique was employed. The dose-length product was 561.80mGy-cm. COMPARISON: Chest CT dated 04/16/2024 FINDINGS: Head/neck: There is symmetric increased activity in the oral cavity, palatine tonsils, laryngeal muscles and ocular muscles without CT correlate, likely physiologic. Mild increased FDG uptake with maximal SUV of 4.9 associated with a 5 mm nodule in the deep left parotid lobe. Small focus of mild uptake with maximal SUV of 3.7 without evident correlate in the region of the cephalad aspect of the right thyroid lobe. Mild likely physiologic increased uptake in the lower cervical paraspinal musculature. No pathologically enlarged cervical lymphadenopathy or other suspicious foci of increased FDG uptake in the visualized head or neck. Chest: Mild emphysema. Prominent increased FDG uptake with maximal SUV of 13.5 associated with an 11 mm subpleural nodule in the left upper lobe. Large calcified nodule in the right lower lobe along with calcified right hilar and mediastinal lymph nodes consistent with old granulomatous disease. Significant improvement in the region of groundglass opacity in the lateral basilar segment of the right lower lobe with mild peripheral FDG uptake with maximal SUV of 4.1 consistent with improving pneumonia. No pleural effusion. Heart size is normal. Atherosclerotic coronary artery calcifications. No pericardial effusion. Thoracic aorta is normal in caliber. No pathologically enlarged or FDG avid thoracic lymphadenopathy. There is additional likely physiologic increased uptake bilaterally along the thoracic posterior paraspinal musculature. Abdomen/pelvis/proximal thighs: Physiologic renal accumulation and excretion of FDG activity in the kidneys, bladder and along portions of ureters. Diffuse hepatic steatosis. Normal degree and heterogenous pattern of increased uptake throughout the liver without radiologic correlate or dominant FDG avid lesion. The gallbladder, pancreas, spleen and bilateral adrenal glands are normal. Mild to moderate uptake scattered throughout the bowels without radiologic correlate, also likely physiologic. Scattered colonic diverticula without adjacent from trace stranding to suggest diverticulitis. No other abnormal foci of increased FDG uptake or pathologically enlarged lymphadenopathy in the abdomen, pelvis or proximal thighs. Musculoskeletal: Scattered degenerative skeletal changes including severe disc height loss at L5- S1 and moderate lower lumbar facet osteoarthritis and otherwise mild. No suspicious lytic, blastic or abnormally FDG avid bone lesions. IMPRESSION: 1. Moderate increased FDG uptake associated with an enlarging now 11 mm left upper lobe nodule which is concerning for primary bronchogenic carcinoma. The patient is a biopsy candidate not on supplemental oxygen at baseline would recommend further evaluation with CT-guided biopsy. 2. Indeterminate 5 mm left parotid nodule with mild increased uptake which could represent a reactive lymph node or neoplasm either benign or malignant. Could consider percutaneous ultrasound guided biopsy if visible by ultrasound. 3. Small focus of mild uptake in the region of the cephalad aspect of the right thyroid lobe. Could consider thyroid ultrasound for risk stratification. 04/16/24: CT Scan of the Chest without Contrast: Clinical Indication: Pulmonary nodule Technique: Contiguous sections were acquired throughout the chest without intravenous contrast. Dose reduction technique was used on this scan by utilizing automated exposure control and iterative reconstruction technique. The dose-length product (DLP) was 70.88 mGy-cm. COMPARISON: 01/24/2024 Findings: There is no evidence of any significant mediastinal, hilar or axillary lymphadenopathy. There are extensive atherosclerotic calcifications of the aorta and coronary arteries. There is no evidence of pleural or pericardial effusion. 9 mm left upper lobe pulmonary nodule is mildly increased in size from prior exam (image 46). Right lower lobe patchy consolidation is mildly worsened from prior exam. Large calcified right basilar granuloma present. Images through the upper abdomen reveal diffuse hepatic steatosis. Impression: 9 mm left upper lobe pulmonary nodule is increased. Early neoplastic lesion not excluded. Continued follow-up at a minimum is advised. Tissue sampling could be attempted, but may be difficult given the relative small size of the lesion. Mild worsening of right lower lobe consolidation and interstitial disease. Right lower lobe pneumonia is a consideration. Review of Systems 2 Constitutional: Constitutional: Reports no additional constitutional complaints Eyes: Eyes: Reports no additional eye complaints ENT: Reports system reviewed and no additional complaints, except as documented Cardiovascular: Cardiovascular: Reports no additional cardiovascular complaints Respiratory: Respiratory: Reports no additional respiratory complaints Gastrointestinal: Gastrointestinal: Reports no additional gastrointestinal complaints Musculoskeletal: Musculoskeletal: Reports no additional musculoskeletal complaints Neurologic: Reports system reviewed and no additional complaints, except as documented Psychiatric: Psychiatric: Reports no additional psychiatric complaints Endocrine: Endocrine: Reports no additional endocrine complaints Hematologic/Lymphatic: Hematologic/Lymphatic: Reports no additional hematologic/lymphatic complaints Allergic/Immunologic: Allergic/Immunologic: Reports no additional allergic/immunologic complaints PMFSH Past Medical History Medical History Nodule of right lung Elevated liver enzymes Ischemic cardiomyopathy ECHO 05/24 40% EF COPD (chronic obstructive pulmonary disease) Hyperlipidemia Primary hypertension Benign hypertension Chronic obstructive pulmonary disease 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 Osteoporosis without current pathological fracture Other emphysema Surgical History Surgical History H/O breast surgery History of heart artery stent Family History Family History Sibling Hypertension Family history of malignant neoplasm of breast in first degree relative Family history of dementia Father Family history of cardiovascular disease Cerebrovascular accident Mother Family history of cardiovascular disease Family history of malignant neoplasm of urinary bladder Social History Social History Smoking packs per day: 0.5 Smoking cigarettes per day: 10.0 Years smoked: 50 Smoking pack-years: 25.00 Smoking status: Former smoker Tobacco type: cigarettes Second hand tobacco smoke exposure: No Alcohol intake: former Drinks per week: 4 Substance use: never Substance use type: does not use Last use: 06/14/2024 Do You Feel Safe in your Home?: Yes Lack of Transportation: No Lack of Food: Never True Current Housing: I Have Housing Concerned About Future Housing: No Difficulty Paying Gas/Electric Bills: No Difficulty Paying for Meds: No Currently Unemployed: No Education: High School Diploma/GED Difficulty w/ Childcare or Family Care: No Living arrangements: alone Gender identity (if verbalized by the patient): Female Spiritual care concerns: No Meds Home Medications and Allergies Home Medications Medication Instructions Recorded Confirmed Type aspirin 81 mg tablet,delayed 81 mg PO DAILY 02/19/19 07/15/24 History release clobetasol 0.05 % topical cream 1 applic topical DAILY PRN 03/20/20 07/15/24 History PSORIASIS tacrolimus 0.1 % topical ointment 1 applic topical BID PRN PSORIASIS 03/20/20 07/15/24 History triamcinolone acetonide 0.1 % 1 applic topical BID PRN PSORIASIS 03/20/20 07/15/24 History topical cream ezetimibe 10 mg tablet (Zetia) 10 mg PO DAILY #30 tabs 12/17/20 07/15/24 Rx empagliflozin 10 mg tablet 10 mg PO DAILY 02/09/23 07/15/24 History (Jardiance) sacubitril 24 mg-valsartan 26 mg 1 tablet PO BID 02/09/23 07/15/24 History tablet (Entresto) inhalational spacing device (Space #1 ea 04/26/23 07/15/24 Rx Chamber) thiamine HCl (vitamin B1) 100 mg 100 mg PO DAILY #100 tabs 06/16/23 07/15/24 Rx tablet budesonide 160 mcg-glycopyr 9 See Rx Instructions .Route 11/03/23 07/15/24 Rx mcg-formot 4.8 mcg/actuation HFA .COMPLEX #10.7 grams inhaler (Breztri Aerosphere) ipratropium bromide 21 mcg (0.03 See Rx Instructions .Route 02/15/24 07/15/24 Rx %) nasal spray .COMPLEX #30 mL omeprazole 20 mg tablet,delayed 20 mg PO DAILY #90 tabs 06/04/24 07/15/24 Rx release albuterol sulfate 90 mcg/actuation 1 inh inhalation Q4H #8.5 grams 06/07/24 07/15/24 Rx aerosol inhaler fluticasone propionate 50 1 spray intranasal BID PRN nasal 06/11/24 07/15/24 History mcg/actuation nasal congestion spray,suspension spironolactone 25 mg tablet 25 mg PO DAILY 06/11/24 07/15/24 History ferrous sulfate 325 mg (65 mg 325 mg PO DAILY 07/15/24 07/15/24 History iron) tablet (FeroSul) tramadol 50 mg tablet 50 mg PO Q6H PRN pain 07/15/24 07/15/24 History Allergies Allergy/AdvReac Type Severity Reaction Status Date / Time roflumilast (From [facility]) Allergy Unknown Hives Verified 07/15/24 13:56 morphine AdvReac Unknown Nausea Verified 07/15/24 13:56 Vital Signs Vital Signs - 24 hr 07/16/24 14:31 07/16/24 16:00 07/16/24 16:00 Temperature Pulse Rate 89 108 H 141 H Respiratory Rate 20 18 Blood Pressure Pulse Oximetry 95 Oxygen Delivery Nasal Cannula Oxygen Flow Rate 1 07/16/24 16:03 07/16/24 18:00 07/16/24 20:00 Temperature 37.0 C Pulse Rate 108 H 94 111 H Respiratory Rate 18 Blood Pressure 104/60 Pulse Oximetry 95 95 Oxygen Delivery Nasal Cannula Oxygen Flow Rate 1 07/16/24 20:00 07/16/24 20:10 07/16/24 20:10 Temperature Pulse Rate 125 H 135 H Respiratory Rate 18 Blood Pressure Pulse Oximetry 95 Oxygen Delivery Nasal Cannula Oxygen Flow Rate 1 07/16/24 20:25 07/16/24 20:48 07/16/24 21:47 Temperature 37.1 C Pulse Rate 105 H 98 130 H Respiratory Rate 18 18 Blood Pressure 106/55 L Pulse Oximetry 96 Oxygen Delivery Oxygen Flow Rate 07/16/24 22:58 07/16/24 23:28 07/16/24 23:28 Temperature 37.1 C Pulse Rate 130 H 89 Respiratory Rate 20 Blood Pressure 118/47 L Pulse Oximetry 97 95 Oxygen Delivery Nasal Cannula Oxygen Flow Rate 1 07/17/24 00:00 07/17/24 01:52 07/17/24 01:52 Temperature Pulse Rate 131 H 89 89 Respiratory Rate 18 18 Blood Pressure Pulse Oximetry 95 Oxygen Delivery Nasal Cannula Oxygen Flow Rate 1 07/17/24 01:55 07/17/24 02:05 07/17/24 03:14 Temperature 36.4 C Pulse Rate 98 88 129 H Respiratory Rate 16 20 Blood Pressure 106/47 L Pulse Oximetry 96 Oxygen Delivery Oxygen Flow Rate 07/17/24 03:54 07/17/24 04:00 07/17/24 04:40 Temperature Pulse Rate 97 105 H Respiratory Rate 20 Blood Pressure Pulse Oximetry 95 Oxygen Delivery Nasal Cannula Oxygen Flow Rate 1 07/17/24 05:50 07/17/24 07:56 07/17/24 08:00 Temperature 36.4 C L Pulse Rate 99 153 H Respiratory Rate 18 Blood Pressure 113/66 Pulse Oximetry 98 95 Oxygen Delivery Nasal Cannula Oxygen Flow Rate 1 07/17/24 08:00 07/17/24 08:53 07/17/24 08:53 Temperature Pulse Rate 107 H 148 H Respiratory Rate 20 Blood Pressure Pulse Oximetry 95 Oxygen Delivery Nasal Cannula Oxygen Flow Rate 2 07/17/24 09:03 07/17/24 09:06 07/17/24 10:00 Temperature Pulse Rate 114 H 111 H 99 Respiratory Rate 20 Blood Pressure Pulse Oximetry Oxygen Delivery Oxygen Flow Rate 07/17/24 11:13 07/17/24 11:52 07/17/24 12:00 Temperature 36.9 C Pulse Rate 101 H 100 Respiratory Rate 18 Blood Pressure 94/53 L Pulse Oximetry 95 96 Oxygen Delivery Nasal Cannula Oxygen Flow Rate 1 Exam 2 Const: General: cooperative, healthy appearing and comfortable O rientation/consciousness: oriented to person, oriented to place and oriented to time HENMT: Head: normal to inspection Ears: hearing grossly normal bilaterally Eyes: General: appearance normal, both eyes and all related structures Neck: Neck: normal visual inspection Chest: Chest palpation & inspection: normal inspection of the chest Resp: Effort & Inspection: normal respiratory effort and able to speak in complete sentences Auscultation: no crackles, no rales, no rhonchi, no wheezes and diminished lung sounds Other: Absent breath sounds right base. No wheezes. Cardio: Jugular venous distension: no JVD GI: Inspection: normal to inspection GI Palp: No abdominal tenderness Skin: General skin exam: normal color Neuro: General: oriented to person, oriented to place and oriented to time Extrem: General: normal to inspection Psych: Appearance: grossly normal Results Laboratory Findings 07/17/24 04:02 07/17/24 04:02 ABG, PT/INR, D-dimer: PT/INR, D-dimer PT 17.1 Seconds (11.1-14.7) H 07/16/24 11:40 INR 1.4 07/16/24 11:40 Abnormal lab findings: Abnormal Labs 07/15/24 07/16/24 07/16/24 13:56 04:52 07:25 WBC 19.4 H 21.1 H RBC 3.18 L 3.40 L Hgb 10.3 L 11.3 L Hct 32.7 L 34.7 L MCV 102.8 H 102.1 H MCHC 31.5 L Plt Count 707 H D 734 H Immature Gran % (Auto) 0.6 H 0.6 H Neut % (Auto) 85.0 H 88.9 H Lymph % (Auto) 6.7 L 4.0 L Lymph # (Auto) 0.84 L [place] # (Auto) 1.2 H 1.3 H Abs Immat Gran (auto) 0.11 H 0.12 H Absolute Neuts (auto) 16.5 H 18.7 H PT APTT Sodium 135 L 135 L Potassium 3.2 L Chloride 96 L Anion Gap 14 H BUN Creatinine 0.42 L 0.52 L Estimated GFR Calcium 8.3 L 8.3 L Magnesium 2.4 H Total Bilirubin 1.5 H Total Protein 6.0 L Albumin 2.9 L Amylase Ur Specific [place] > 1.045 H Urine Glucose (UA) 3+ H Urine Ketones 1+ H Pleural pH Pleural Nuc Cells Pleural Neutrophils 07/16/24 07/16/24 07/17/24 11:40 15:06 04:02 WBC 17.4 H RBC 2.58 L Hgb 8.6 L Hct 28.2 L MCV 109.3 H D MCHC 30.5 L Plt Count 610 H Immature Gran % (Auto) Neut % (Auto) Lymph % (Auto) Lymph # (Auto) [place] # (Auto) Abs Immat Gran (auto) Absolute Neuts (auto) PT 17.1 H APTT 41.7 H Sodium 133 L Potassium Chloride Anion Gap BUN 27 H D Creatinine Estimated GFR 57 L Calcium Magnesium Total Bilirubin Total Protein 5.0 L Albumin 2.1 L Amylase < 30 L Ur Specific [place] Urine Glucose (UA) Urine Ketones Pleural pH 7.105 L Pleural Nuc Cells 5526 H Pleural Neutrophils 76 H 07/17/24 04:02 WBC RBC Hgb Hct MCV MCHC Plt Count Immature Gran % (Auto) Neut % (Auto) Lymph % (Auto) Lymph # (Auto) [place] # (Auto) Abs Immat Gran (auto) Absolute Neuts (auto) PT APTT Sodium Potassium Chloride Anion Gap BUN Creatinine Estimated GFR 55 L Calcium 7.2 L Magnesium 2.4 H Total Bilirubin Total Protein Albumin Amylase Ur Specific [place] Urine Glucose (UA) Urine Ketones Pleural pH Pleural Nuc Cells Pleural Neutrophils Diagnostic Findings Additional studies: ITS Impressions Chest X-Ray 07/15/24 14:18 IMPRESSION: Right lower lobe atelectasis versus pneumonia with pleural effusion. Chest/Abdomen/Pelvis CT 07/15/24 16:21 IMPRESSION: CHEST: 1. No pulmonary embolism or aortic dissection. 2. Right basilar atelectasis versus pneumonia with moderate right pleural effusion. Clinical correlation advised. 3. Healing rib fractures in the right hemithorax. 4. Nodule in the left upper lobe unchanged from previous examination. ABDOMEN/PELVIS: 1. No evidence of appendicitis, diverticulitis or intestinal obstruction. 2. Fat infiltration of the liver. 3. Distended gallbladder with no definite stones. 4. Slightly prominent CBD measuring 1.1 cm. Prominent pancreatic duct also noted. Follow-up advised. CT chest abdomen pelvis w con, CT thoracic lumbar wo con Ordering provider: Chris Mccracken MD History: . fall back,flank pain. abnormal chest xray . Comparison: None. Technique: CT thoracic spine without contrast. Automated exposure control and iterative reconstruction technique were employed. The dose-length product was 261.08 mGy-cm. FINDINGS: VERTEBRAE: Small bony fragment seen near to the spinous process of T4 which is most likely chronic. Clinical evaluation for tenderness in the area advised. Otherwise, Normal height and alignment. No subluxation or visible acute fracture. Kyphosis is seen. DISC SPACES: Well maintained. No significant stenosis as visualized. PARASPINOUS SOFT TISSUES: Normal. IMPRESSION: Small bony fragment near to the spinous process of T4 which is most likely chronic. Clinical correlation advised. Otherwise, No acute osseous abnormality of the thoracic spine. CT chest abdomen pelvis w con, CT thoracic lumbar wo con Ordering provider: Chris Mccracken MD History: 73 years Female with . fall back,flank pain. abnormal chest xray . Comparison: None. Technique: CT lumbar spine without contrast. Automated exposure control and iterative reconstruction technique were employed. The dose-length product was 261.08 mGy-cm. FINDINGS: VERTEBRAE: Normal height and alignment. No subluxation or visible acute fracture. Sclerotic areas seen in the right transverse process of L2. Follow-up advised. DISC SPACES: Well maintained. Degenerative disc disease seen at the level of L5- S1. Spinal canal stenosis seen at the level of L4-L5 with diffuse disc bulge and bilateral narrowing of the foramina. Right nerve compression is highly suggestive. Diffuse disc bulge at the level of L3. PARASPINOUS SOFT TISSUES: Moderate atheromatous disease of the abdominal aorta. IMPRESSION: No acute osseous abnormalities. Moderate spinal canal stenosis at the level of L4-5 with bilateral narrowing of the foramina and highly suggestive right nerve root compression. MRI evaluation advised. Thoracic/Lumbar Spine CT 07/15/24 16:21 IMPRESSION: CHEST: 1. No pulmonary embolism or aortic dissection. 2. Right basilar atelectasis versus pneumonia with moderate right pleural effusion. Clinical correlation advised. 3. Healing rib fractures in the right hemithorax. 4. Nodule in the left upper lobe unchanged from previous examination. ABDOMEN/PELVIS: 1. No evidence of appendicitis, diverticulitis or intestinal obstruction. 2. Fat infiltration of the liver. 3. Distended gallbladder with no definite stones. 4. Slightly prominent CBD measuring 1.1 cm. Prominent pancreatic duct also noted. Follow-up advised. CT chest abdomen pelvis w con, CT thoracic lumbar wo con Ordering provider: Chris Mccracken MD History: . fall back,flank pain. abnormal chest xray . Comparison: None. Technique: CT thoracic spine without contrast. Automated exposure control and iterative reconstruction technique were employed. The dose-length product was 261.08 mGy-cm. FINDINGS: VERTEBRAE: Small bony fragment seen near to the spinous process of T4 which is most likely chronic. Clinical evaluation for tenderness in the area advised. Otherwise, Normal height and alignment. No subluxation or visible acute fracture. Kyphosis is seen. DISC SPACES: Well maintained. No significant stenosis as visualized. PARASPINOUS SOFT TISSUES: Normal. IMPRESSION: Small bony fragment near to the spinous process of T4 which is most likely chronic. Clinical correlation advised. Otherwise, No acute osseous abnormality of the thoracic spine. CT chest abdomen pelvis w con, CT thoracic lumbar wo con Ordering provider: Chris Mccracken MD History: 73 years Female with . fall back,flank pain. abnormal chest xray . Comparison: None. Technique: CT lumbar spine without contrast. Automated exposure control and iterative reconstruction technique were employed. The dose-length product was 261.08 mGy-cm. FINDINGS: VERTEBRAE: Normal height and alignment. No subluxation or visible acute fracture. Sclerotic areas seen in the right transverse process of L2. Follow-up advised. DISC SPACES: Well maintained. Degenerative disc disease seen at the level of L5- S1. Spinal canal stenosis seen at the level of L4-L5 with diffuse disc bulge and bilateral narrowing of the foramina. Right nerve compression is highly suggestive. Diffuse disc bulge at the level of L3. PARASPINOUS SOFT TISSUES: Moderate atheromatous disease of the abdominal aorta. IMPRESSION: No acute osseous abnormalities. Moderate spinal canal stenosis at the level of L4-5 with bilateral narrowing of the foramina and highly suggestive right nerve root compression. MRI evaluation advised. Chest X-Ray 07/16/24 06:31 Impression: Suspected layering right pleural effusion with extensive right lung airspace disease. Correlate for right-sided pneumonia. Left lung clear. Chest X-Ray 07/16/24 15:36 IMPRESSION: 1. Decrease in size of a now very small right pleural effusion and a portion which is loculated along the right major fissure post thoracentesis. No pneumothorax. 2. Opacities in the right lower lung zone consistent with right lower lobe pneumonia. Thoracentesis Ultrasound 07/16/24 15:40 IMPRESSION: 1. Successful ultrasound-guided thoracentesis yielding 600 mL of cloudy straw- colored fluid. Chest X-Ray 07/17/24 08:48 IMPRESSION: 1. Right lower lobe pneumonia with small right pleural effusion a portion which remains loculated along the major fissure.
[2024-07-17] MEDS: oxyCODONE HCL (*CRX) 5 MG TAB IR 10 MG PO (14:40)
--- NOTE | 2024-07-17 15:28 | P.TS_ITS ---
Transfer Discharge Sum: Prov Provider Date of admission: 07/15/24 17:29 Primary care physician: Nu Shirley MD Admitting clinician: James Gayle MD Consults: 07/16/24 07:36 Consult to Physician Routine Comment: Consulting Provider: Christy Menjivar scalloper/MD group to consult: cardiology Reason for consultation: hx of CAD, new onset A. fib Has provider been notified: Yes 07/16/24 17:46 Consult to Physician Routine Comment: Consulting Provider: Simon Mariano scalloper/MD group to consult: Dr. Mariano Reason for consultation: Abormal pleural effusion, lung nodule Has provider been notified: Yes DS: Admitting Diagnosis Discharge Date Admitting Diagnosis Fall and shortness of breath DS: Discharge Diagnosis Discharge Diagnosis (1) Fall: Code(s): W19.XXXA - Unspecified fall, initial encounter Status: Acute Assessment and Plan: Moderate spinal canal stenosis at the level of L4-5 with bilateral narrowing of the foramina and highly suggestive right nerve root compression. MRI evaluation advised. No lower extremity deficits, can follow-up outpatient Patient states that she has had several falls PT OT (2) Acute pain: Code(s): R52 - Pain, unspecified Status: Acute Assessment and Plan: Possibly from rib fractures or pneumonia, chest pain on palpation Scheduled Tylenol, gabapentin and lidocaine P.r.n. oxycodone (3) Pneumonia: Code(s): J18.9 - Pneumonia, unspecified organism Status: Acute Assessment and Plan: Community-acquired Azithromycin, Unasyn and Rocephin given in ED Continue antibiotics azithromycin and Rocephin (4) Pleural effusion on right: Code(s): J90 - Pleural effusion, not elsewhere classified Status: Acute Assessment and Plan: Pleural effusion versus hemothorax Patient will likely benefit from a thoracentesis or chest tube Hold Lovenox (5) COPD (chronic obstructive pulmonary disease): Qualifiers: COPD type: unspecified COPD Qualified Code(s): J44.9 - Chronic obstructive pulmonary disease, unspecified Code(s): J44.9 - Chronic obstructive pulmonary disease, unspecified Status: Acute Assessment and Plan: Home inhalers Steroids starting incase is exacerbation (6) Primary hypertension: Code(s): I10 - Essential (primary) hypertension Status: Acute Assessment and Plan: Continue home med (7) Hyperlipidemia: Code(s): E78.5 - Hyperlipidemia, unspecified Status: Acute Assessment and Plan: Continue home med (8) CAD (coronary artery disease): Code(s): I25.10 - Atherosclerotic heart disease of [place] coronary artery without angina pectoris Status: Acute Assessment and Plan: Continue Entresto and Jardiance (9) Lung nodule: Code(s): R91.1 - Solitary pulmonary nodule Status: Acute Assessment and Plan: Unchanged from last CT (10) Dilated cbd, acquired: Code(s): K83.8 - Other specified diseases of biliary tract Status: Acute Assessment and Plan: Denies right upper quadrant pain No need for surgical or GI consult at this time Plan patient with history of recurrent pleural effusion and 9mm lung nodule was admitted with shortness of breath was admitted in need of therapeutic thorace ntesis, while in the floor she developed Atrial fibrillation with RVR most likely trigger by shortness of breath due to pneumonia, however she spontaneously converted to sinus rhythm and remains in sinus rhythm now. seen by production line mechanic and started her on ToprolXL 25mg daily, patient is scheduled to have thoracentesis later today, will follow up. Transfer Discharge Sum: Med Medications Active and Home Medications: Home Medications aspirin 81 mg tablet,delayed release 81 mg PO DAILY 02/19/19 [History Confirmed 07/15/24] clobetasol 0.05 % topical cream 1 applic topical DAILY PRN PSORIASIS 03/20/20 [History Confirmed 07/15/24] tacrolimus 0.1 % topical ointment 1 applic topical BID PRN PSORIASIS 03/20/20 [History Confirmed 07/15/24] triamcinolone acetonide 0.1 % topical cream 1 applic topical BID PRN PSORIASIS 03/20/20 [History Confirmed 07/15/24] ezetimibe 10 mg tablet (Zetia) 10 mg PO DAILY #30 tabs 12/17/20 [Rx Confirmed 07/15/24] empagliflozin 10 mg tablet (Jardiance) 10 mg PO DAILY 02/09/23 [History Confirmed 07/15/24] sacubitril 24 mg-valsartan 26 mg tablet (Entresto) 1 tablet PO BID 02/09/23 [History Confirmed 07/15/24] inhalational spacing device (Space Chamber) #1 ea 04/26/23 [Rx Confirmed 07/15/24] thiamine HCl (vitamin B1) 100 mg tablet 100 mg PO DAILY #100 tabs 06/16/23 [Rx Confirmed 07/15/24] budesonide 160 mcg-glycopyr 9 mcg-formot 4.8 mcg/actuation HFA inhaler (Breztri AeroDronphere) See Rx Instructions .Route .COMPLEX #10.7 grams 11/03/23 [Rx Confirmed 07/15/24] ipratropium bromide 21 mcg (0.03 %) nasal spray See Rx Instructions .Route .COMPLEX #30 mL 02/15/24 [Rx Confirmed 07/15/24] omeprazole 20 mg tablet,delayed release 20 mg PO DAILY #90 tabs 06/04/24 [Rx Confirmed 07/15/24] albuterol sulfate 90 mcg/actuation aerosol inhaler 1 inh inhalation Q4H #8.5 grams 06/07/24 [Rx Confirmed 07/15/24] fluticasone propionate 50 mcg/actuation nasal spray,suspension 1 spray intranasal BID PRN nasal congestion 06/11/24 [History Confirmed 07/15/24] spironolactone 25 mg tablet 25 mg PO DAILY 06/11/24 [History Confirmed 07/15/24] ferrous sulfate 325 mg (65 mg iron) tablet (FeroSul) 325 mg PO DAILY 07/15/24 [History Confirmed 07/15/24] tramadol 50 mg tablet 50 mg PO Q6H PRN pain 07/15/24 [History Confirmed 07/15/24] Active Medications Acetaminophen (Acetaminophen 325 Mg Tablet) 650 mg PO Q6HR [facility] Last Admin: 07/17/24 12:13 Dose: 650 mg Aspirin (Aspirin 81 Mg Enteric Tablet) 81 mg PO DAILY [facility] Last Admin: 07/17/24 09:05 Dose: 81 mg Clobetasol Propionate (Clobetasol Propionate 0.05% Cream 15 Gm) 1 applic TOPICAL DAILY PRN PRN Reason: PSORIASIS Docusate Sodium (Docusate Sodium 100 Mg Capsule) 100 mg PO BID [facility] Last Admin: 07/17/24 09:04 Dose: 100 mg Ezetimibe (Ezetimibe 10 Mg Tablet) 10 mg PO DAILY [facility] Last Admin: 07/17/24 09:06 Dose: 10 mg Empagliflozin (Empagliflozin 10 Mg Tablet) 10 mg PO DAILY [facility] Last Admin: 07/17/24 09:08 Dose: 10 mg Enoxaparin Sodium (Enoxaparin 60 Mg/0.6 Ml Syringe) 55 mg SUB-Q Q12HR [facility] Ferrous Sulfate (Ferrous Sulfate [address]) 325 mg PO DAILY [facility] Last Admin: 07/17/24 09:05 Dose: 325 mg Fluticasone Propionate (Fluticasone Propionate 0.05% Na Spr 16 Gm Btl (*Bkc)) 1 spray NASAL BID PRN PRN Reason: nasal congestion Gabapentin (Gabapentin 300 Mg Capsule) 300 mg PO TID [facility] Last Admin: 07/17/24 12:13 Dose: 300 mg Piperacillin/Tazobactam/Dextrose (Zosyn 3.375 Gm/Ns 50 Ml) 3.375 gm in 50 mls @ 100 mls/hr IVPB Q6H [facility] Last Admin: 07/17/24 14:34 Dose: 100 mls/hr Doxycycline Hyclate (Vibramycin 100 Mg/Ns 100 Ml) 100 mg in 100 mls @ 100 mls/hr IVPB Q12H [facility] Last Admin: 07/17/24 09:03 Dose: 100 mls/hr Linezolid (Zyvox) 600 mg in 300 mls @ 300 mls/hr IVPB Q12HR [facility] Ipratropium [place] (Ipratropium Nasal Odd 0.03% 15 Ml Bottle) 2 spray NASAL TID [facility] Last Admin: 07/17/24 12:14 Dose: 2 spray Ipratropium [place] (Ipratropium Br 0.02% Inh Soln 0.5 Mg/2.5 Ml Vial) 0.5 mg INHALATION Q6HRT [facility] Last Admin: 07/17/24 14:28 Dose: 0.5 mg Levalbuterol HCl (Levalbuterol Neb 1.25 Mg/3 Ml) 1.25 mg INHALATION Q6HRT [facility] Last Admin: 07/17/24 14:28 Dose: 1.25 mg Lidocaine (Lidocaine 5% Patch) 1 patch TRANSDERM DAILY [facility] Last Admin: 07/17/24 09:04 Dose: 1 patch Metoprolol Succinate (Metoprolol Succinate Ext Rel 25 Mg Tabcr) 25 mg PO QAM [facility] Last Admin: 07/17/24 09:06 Dose: 25 mg Oxycodone HCl (Oxycodone Hcl (*Crx) 5 Mg Tab Ir) 5 mg PO Q4H PRN PRN Reason: Pain Rated 4-6 Oxycodone HCl (Oxycodone Hcl (*Crx) 5 Mg Tab Ir) 10 mg PO Q4H PRN PRN Reason: Pain Rated 7-10 Last Admin: 07/17/24 14:40 Dose: 10 mg Pantoprazole Sodium (Pantoprazole 40 Mg Tablet) 40 mg PO QAM [facility] Last Admin: 07/17/24 09:08 Dose: 40 mg Sacubitril/Valsartan (Sacubitril/Valsartan 24-26 Mg Tablet) 1 tab PO Q12HR [facility] Last Admin: 07/17/24 09:05 Dose: 1 tab Sodium Chloride (Sodium Chlor 3% 15 Ml Neb (Respiratory Therapy)) 6 ml INHALATION DAILY@0500 [facility] Stop: 07/19/24 05:01 Last Admin: 07/17/24 04:40 Dose: 6 ml Spironolactone (Spironolactone 25 Mg Tablet) 25 mg PO DAILY [facility] Last Admin: 07/17/24 09:05 Dose: 25 mg Tacrolimus (Tacrolimus 0.1% 30 Gm Ointment) 1 applic TOPICAL BID PRN PRN Reason: PSORIASIS Thiamine HCl (Thiamine Hcl 100 Mg Tablet) 100 mg PO DAILY [facility] Last Admin: 07/17/24 09:05 Dose: 100 mg Triamcinolone Acetonide (Triamcinolone Acet 0.1% Cream 15 Gm Tube) 1 applic TOPICAL BID PRN PRN Reason: PSORIASIS Transfer Discharge Sum: Hosp Hospital Course Hospital course: Oralia Garsia is a 73 year old female patient with history of recurrent pleural effusion and 9mm lung nodule was admitted with shortness of breath was admitted in need of therapeutic thoracentesis, while in the floor she developed Atrial fibrillation with RVR most likely trigger by shortness of breath due to pneumonia, however she spontaneously converted to sinus rhythm and remains in sinus rhythm now. seen by production line mechanic and started her on ToprolXL 25mg daily, patient had a thoracentesis, 600cc was removed, which showed Ph of 7.1, discuss with Dr. Mariano, gas truck driver recommended to start the patient on meropenem, levaquin and vancomcin, and transfer patient to a tertiary care as patient needs to be seen by a thoracic surgeon. Called [facility] in [place], and patient is accepted and has a bed, will transfer patient today. Time Spent with Patient Time attestation: Total time spent providing and/or coordinating transfer services: Exam Narrative: Appears chronically ill Patient is comfortable, NAD HEENT: eyes are clear and none icteric LUNGS: Bilateral poor air entry with rhonchi HEART: RR S1S2 ABD: BS+, Soft and nontender Lower extremities: no edema SKIN: nonjaundiced Neuro: grossly intact. DS: Data Data Completed and Pending Pending studies at discharge: Pending at discharge 07/16/24 13:13 Cytology [PTH] Routine Labs on day of discharge: Labs from last 24 hours 07/17/24 07/17/24 07/17/24 05:07 04:02 04:02 WBC RBC Hgb Hct MCV MCH MCHC RDW Plt Count MPV Sodium Potassium Chloride Carbon Dioxide Anion Gap BUN Creatinine Estim Creat Clear Calc 40 Estimated GFR 55 L 57 L Glucose 99 Calcium 7.2 L Magnesium 2.4 H Pleural Fluid Source Pleural Color Pleural Appearance Pleural pH Pleural RBC Pleural Nuc Cells Pleural Neutrophils Pleural Lymphocytes Pleural Monocytes Pleural Macrophages Pleural Total Protein Pleural Albumin Pleural LDH Pleural Glucose Pleural Amylase Pleural Cholesterol Pleural Triglycerides Nasal MRSA (PCR) Not detected 07/17/24 07/17/24 07/16/24 04:02 04:02 15:06 WBC 17.4 H RBC 2.58 L Hgb 8.6 L Hct 28.2 L MCV 109.3 H D MCH 33.3 MCHC 30.5 L RDW 13.8 Plt Count 610 H MPV 10.1 Sodium 133 L Potassium 3.6 Chloride 99 Carbon Dioxide 23 Anion Gap 11 BUN 27 H D Creatinine 0.99 0.96 Estim Creat Clear Calc 41 Estimated GFR Glucose Calcium Magnesium Pleural Fluid Source Pleural fluid Pleural Color Yellow Pleural Appearance Cloudy Pleural pH 7.105 L Pleural RBC < 2000 Pleural Nuc Cells 5526 H Pleural Neutrophils 76 H Pleural Lymphocytes 7 Pleural Monocytes 2 Pleural Macrophages 15 Pleural Total Protein Pending Pleural Albumin Pending Pleural LDH Pending Pleural Glucose Pending Pleural Amylase Pending Pleural Cholesterol Pending Pleural Triglycerides Pending Nasal MRSA (PCR) Preliminary micro results at discharge 07/17/24 05:00 Sputum Culture - Preliminary Sputum 07/16/24 15:06 Anaerobic Culture - Preliminary Pleural Fluid 07/15/24 15:58 Blood Culture - Preliminary Blood 07/15/24 15:58 Blood Culture - Preliminary Blood
--- NOTE | 2024-07-17 15:32 | PC.NURSE ---
PT left via stretcher with EMS. Report previously given to Kwan [place] at [facility]. PT left with IV intact, lidocaine and nicotine patch in place. 1L NC. Notified Dr Rodriguez of patient transfer status.
[2024-07-24 23:13] LABS: Albumin Pleural Fluid 1.4 g/dL; Amylase, Pleural Fluid 11 U/L; Glucose Pleural Fluid <10 mg/dL; LDH Pleural Fluid 1898 U/L; Total Protein Pleural Fluid 3.2 g/dL
== END 2024-07-17 15:27 | disposition short-term general hospital (02) | DRG 186 ==
LOC: ANHED 18:30 → ANH2MED 20:06 → ANHIMU 07-17 16:04 → ANH2MED 07-18 15:10
PROVIDERS: Internal Medicine; Nurse Practitioner Gerontology; Admitting Provider General Practice; Emergency Provider Student in an Organized Health Care Education/Training Program; PCP Family Medicine; Visit Provider Family Medicine
DX: J90 Pleural effusion, not elsewhere classified (principal); E43 Unspecified severe protein-calorie malnutrition; J18.9 Pneumonia, unspecified organism; J44.0 Chronic obstructive pulmonary disease with (acute) lower respiratory infection; J44.1 Chronic obstructive pulmonary disease with (acute) exacerbation; M48.061 Spinal stenosis, lumbar region without neurogenic claudication; M81.0 Age-related osteoporosis without current pathological fracture; W01.0XXA Fall on same level from slipping, tripping and stumbling without subsequent striking against object, initial encounter; I25.119 Atherosclerotic heart disease of native coronary artery with unspecified angina pectoris; I25.5 Ischemic cardiomyopathy; E78.5 Hyperlipidemia, unspecified; I48.91 Unspecified atrial fibrillation; R91.1 Solitary pulmonary nodule; K83.8 Other specified diseases of biliary tract; I10 Essential (primary) hypertension; R00.0 Tachycardia, unspecified; R94.31 Abnormal electrocardiogram [ECG] [EKG]; F17.210 Nicotine dependence, cigarettes, uncomplicated; S22.41XD Multiple fractures of ribs, right side, subsequent encounter for fracture with routine healing; Z95.5 Presence of coronary angioplasty implant and graft; I25.2 Old myocardial infarction; Z68.20 Body mass index [BMI] 20.0-20.9, adult
CPT/HCPCS: 32555; 36415; 71045; 71260; 72128; 72131; 74177; 80048; 80053; 81001; 82040; 82042; 82150; 82247; 82465; 82565; 82945; 82947; 83605; 83615; 83735; 83986; 84145; 84155; 84157; 84311; 84478; 84484; 85025; 85027; 85610; 85730; 87015; 87040; 87070; 87075; 87102; 87116; 87205; 87206; 87641; 88108; 88305; 89051; 93005; 94640; 96361; 96365; 96367; 96375; 99285; A9270; J0295; J0456; J0696; J1171; J1650; J2405; J2543; J2919; J3370; J7040; J7120; J7512; Q9967

== ENCOUNTER 2024-07-29 03:19 | Emergency (ER) | payer MEDICARE, SELFPAY ==
[2024-07-29] VITALS (34 sets, daily range): BP systolic 108–141; BP diastolic 62–104; PULSE 90–157; RESP 12–29; TEMP 36.4; O2SAT 96–100
--- NOTE | ~2024-07-29 | CT_ITS ---
EXAMINATION: CTA chest PE abdomen pel DATE: 07/29/2024 6:41 CDT INDICATION: Shortness of breath with elevated d-dimer and transaminitis TECHNIQUE: Computed tomographic angiography (CTA) of the chest was performed, along with multiple con tiguous axial images of the abdomen and pelvis with 100 mL Omnipaque-350 intravenous contrast. The do se-length product was 482.07 mGy-cm. Maximum intensity projection 3D-reconstructions of the aorta and other arteries were constructed by the technologist on a separate workstation. FINDINGS/OBSERVATIONS: PULMONARY ARTERIES: No filling defect is identified within the main or proximal pulmonary artery. The main pulmonary artery is not enlarged. THORACIC AORTA: No aneurysmal dilatation or dissection is present. The great vessels are intact LUNGS: Large bilateral pleural effusions, right greater than left. The right-sided pleural effusion contains multiple foci of air and is a somewhat loculated suggesting empyema. The remainder of the lungs are clear. MEDIASTINUM: No morphologically suspicious or pathologically enlarged lymph nodes are identified with in the mediastinum or bilateral axilla. BONES OF THE CHEST: No acute fracture. No significant degenerative disease. No lytic or blastic lesions. HEART: The heart is within the upper limits of normal for size, without pericardial effusion. LIVER: The liver demonstrates homogeneously decreased enhancement suggesting fatty liver disease. No hepatic enlargement is demonstrated. The liver measures 16 cm in longitudinal dimension. GALLBLADDER AND BILIARY SYSTEM: The gallbladder is distended, with trace surrounding inflammatory change. No calcified stones are pre sent. PANCREAS: The pancreas enhances homogeneously without ductal dilatation. Inflammatory change is suggested within the lesser sac, seen with venous congestion versus pancreatit is. SPLEEN: The spleen enhances homogeneously and is not enlarged. KIDNEYS: The bilateral kidneys enhance symmetrically without hydronephrosis or renal calculi. ADRENAL GLANDS: Symmetric thickening, as one would see with acute phase response. GASTROINTESTINAL TRACT: Rectosigmoid diverticulosis without surrounding inflammatory change, secondary to venous congestion v ersus diverticulitis for which clinical correlation is needed. APPENDIX: The appendix is not definitively visualized. However, no pericecal inflammatory change is identified suggest the presence of acute appendicitis. VASCULATURE: Densely calcified atherosclerotic disease with findings consistent with aortic stenosis. LYMPH NODES: Scattered nonpathologically enlarged or morphologically suspicious lymph nodes within the retroperito neum and at the root of the mesentery, a nonspecific finding. PELVIC STRUCTURES: The bladder is decompressed, limiting its evaluation. The uterus is atrophic or surgically absent. BODY WALL AND MUSCULOSKELETAL: Anasarca. Age-appropriate degenerative disease. IMPRESSION: Large bilateral pleural effusions with empyema suspected on the right. Gallbladder distention with surrounding inflammatory change. Inflammatory change within the lesser sac representing either venous congestion (as one would see wit h congestive heart failure) versus acute pancreatitis. Colonic diverticulosis with trace surrounding inflammatory change representing either venous congesti on (as one would see with congestive heart failure) versus acute diverticulitis. Reviewed, dictated and finalized at location A. IMPRESSION: Large bilateral pleural effusions with empyema suspected on the right. Gallbladder distention with surrounding inflammatory change. Inflammatory change within the lesser sac representing either venous congestion (as one would see with congestive heart failure) versus acute pancreatitis. Colonic diverticulosis with trace surrounding inflammatory change representing either venous congestion (as one would see with congestive heart failure) versu s acute diverticulitis.
--- NOTE | ~2024-07-29 | XR_ITS ---
CHEST RADIOGRAPH CLINICAL HISTORY: sob . COMPARISON: 07/17/2024 TECHNIQUE: Single portable view of the chest. FINDINGS Calcified lymph nodes are present suggesting prior granulomatous disease. The remainder of the cardiomediastinal silhouette is otherwise unremarkable. Large right-sided pleural effusion. The left hemithorax is clear. IMPRESSION: Large right-sided pleural effusion without focal infiltrate. Reviewed, dictated and finalized at location A.
--- NOTE | 2024-07-29 03:26 | ECG_ITS ---
Test Date: 2024-07-29 04:22:28 Measurements Intervals [place] Rate: 106 P: 47 MD: 124 QRS: -19 QRSD: 130 T: 102 QT: 353 QTc: 469 Interpretive Statements SINUS TACHYCARDIA WITH OCCASIONAL SUPRAVENTRICULAR PREMATURE COMPLEXES ANTEROSEPTAL MYOCARDIAL INFARCTION , OF INDETERMINATE AGE [40+ ms Q WAVE IN V1-V4] LOW LIMB LEAD VOLTAGE INTRAVENTRICULAR CONDUCTION DELAY Compared to ECG 07/17/2024 09:54:03 Myocardial infarct finding still present Electronically Signed On 07-29-2024 10:13:19 CDT by Nicolás Morgan M.D.
--- NOTE | 2024-07-29 03:31 | ED_ITS ---
HPI - SOB/Dyspnea General Chief Complaint: Shortness of Breath/Dyspnea Stated Complaint: sob since yesterday Time Seen by Provider: 07/29/24 03:21 Source: patient and EMS Mode of arrival: EMS Limitations: clinical condition History of Present Illness HPI Narrative: Patient presents in respiratory distress. History of COPD and s/p Magnesium 2g, 2 breathing treatments, and 125 SoluMedrol by EMS. No prior BIPAP or intubation. She does state she was recently diagnosed with heart failure and had a stent placed in 2018. Has been hospitalized frequently here and at [facility]. At one point discharged for rehab at [facility] in [place] but now home. Recent history of rib fracture requiring thoracentesis for pleural effusion. Denies being on antihypertensives/rate controlling medications when asked, giving her a list of most common medication names. Is taking Elliquis. She is having chest pain, to some degree chronic. Related Data Home Medications ?Medication ?Instructions ?Recorded ?Confirmed ?Last Taken ?Type aspirin 81 mg tablet,delayed 81 mg PO DAILY 02/19/19 07/29/24 06/02/20 History release clobetasol 0.05 % topical cream 1 applic topical DAILY PRN 03/20/20 07/29/24 06/02/20 History PSORIASIS tacrolimus 0.1 % topical ointment 1 applic topical BID PRN PSORIASIS 03/20/20 07/29/24 06/02/20 History triamcinolone acetonide 0.1 % 1 applic topical BID PRN PSORIASIS 03/20/20 07/29/24 06/02/20 History topical cream empagliflozin 10 mg tablet 10 mg PO DAILY 02/09/23 07/29/24 Unknown History (Jardiance) sacubitril 24 mg-valsartan 26 mg 1 tablet PO BID 02/09/23 07/29/24 Unknown History tablet (Entresto) fluticasone propionate 50 1 spray intranasal BID PRN nasal 06/11/24 07/29/24 Unknown History mcg/actuation nasal congestion spray,suspension spironolactone 25 mg tablet 25 mg PO DAILY 06/11/24 07/29/24 Unknown History ferrous sulfate 325 mg (65 mg 325 mg PO DAILY 07/15/24 07/29/24 Unknown History iron) tablet (FeroSul) tramadol 50 mg tablet 50 mg PO Q6H PRN pain 07/15/24 07/29/24 Unknown History amoxicillin 875 mg-potassium tablet 07/29/24 Unknown History clavulanate 125 mg tablet apixaban 5 mg tablet (Eliquis) mg 07/29/24 Unknown History atorvastatin 40 mg tablet mg 07/29/24 Unknown History Allergies Allergy/AdvReac Type Severity Reaction Status Date / Time roflumilast (From Dalires) Allergy Unknown Hives Verified 07/15/24 13:56 morphine AdvReac Unknown Nausea Verified 07/15/24 13:56 [facility] Past Medical History Medical History History of rib fracture Nodule of right lung Elevated liver enzymes Ischemic cardiomyopathy ECHO 05/24 40% EF COPD (chronic obstructive pulmonary disease) Hyperlipidemia Primary hypertension Benign hypertension 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 Osteoporosis without current pathological fracture Other emphysema Surgical History Surgical History History of chest tube placement S/P thoracentesis H/O breast surgery History of heart artery stent 2017 Family History Family History Sibling Hypertension Family history of malignant neoplasm of breast in first degree relative Family history of dementia Father Family history of cardiovascular disease Cerebrovascular accident Mother Family history of cardiovascular disease Family history of malignant neoplasm of urinary bladder Social History Social History Smoking packs per day: 0.5 Smoking cigarettes per day: 10.0 Years smoked: 50 Smoking pack-years: 25.00 Smoking status: Former smoker Tobacco type: cigarettes Second hand tobacco smoke exposure: No Alcohol intake: former Drinks per week: 4 Substance use: never Substance use type: does not use Last use: 06/14/2024 Do You Feel Safe in your Home?: Yes Lack of Transportation: No Lack of Food: Never True Current Housing: I Have Housing Concerned About Future Housing: No Difficulty Paying Gas/Electric Bills: No Difficulty Paying for Meds: No Currently Unemployed: No Education: High School Diploma/GED Difficulty w/ Childcare or Family Care: No Living arrangements: alone Gender identity (if verbalized by the patient): Female Spiritual care concerns: No Exam 2 Narrative: GENERAL: well nourished, in moderate acute distress. HEAD: Normocephalic, atraumatic. EYES: Non injected, non icteric ENT: Nares clear, no rhinorrhea or epistaxis. Gross auditory acuity intact. NECK: Supple. No meningismus. CHEST: Speaking in 1-2 wordl sentences. Respiratory distress. Tacynpneic, labored but poor/minimal air movement HEART: IRRegularly irregular rate and rhythm. . ABDOMEN: Soft, nondistended. EXTREMITIES: Normal range of motion. No gross lower extremity edema. SKIN: Warm, dry, no rash. NEURO: No focal deficits. Alert and oriented. Answering questions. Following commands. Normal speech without aphasia or dysarthria. PSYCH: Normal mood and affect. Course Vital Signs Vital signs: Vital Signs Temperature 97.6 F 07/29/24 03:18 Pulse Rate 157 H 07/29/24 03:18 Respiratory Rate 26 H 07/29/24 03:18 Blood Pressure 132/91 H 07/29/24 03:18 Pulse Oximetry 96 07/29/24 03:18 Oxygen Delivery Nasal Cannula 07/29/24 03:18 Oxygen Flow Rate 2 07/29/24 03:18 Temperature 97.6 F 07/29/24 03:18 Pulse Rate 96 07/29/24 07:18 Respiratory Rate 20 07/29/24 07:18 Blood Pressure 141/97 H 07/29/24 07:18 Pulse Oximetry 100 07/29/24 08:22 Oxygen Delivery Nasal Cannula 07/29/24 08:22 Oxygen Flow Rate 2 07/29/24 08:22 Fraction of Inspired Oxygen 28 07/29/24 08:22 MDM - SOB/Dyspnea MDM Narrative Medical decision making narrative: This is a very pleasant 73 with multiple underlying respiratory and cardiac history/risk factors who presents w/ SOB. In the emergency department she is afebrile with VS notable for acceptable BP (mild DBP elevation), elevated heart rate, and tachypneic, with pursed lip breathing, labored but poor air movement throughout. Patient presented with shortness of breath, in respiratory distress. Physical exam revealed an irregular and rapid heartbeat at a rate of 156 beats per minute. Based on this, the most likely diagnosis is atrial fibrillation/aflutter with rapid ventricular response (AFib/aflutter with RVR). Patient was only recently diagnosed with atrial fibrillation during most recent hospitalization per cardiology note and it does appear that she was placed on Toprol as well as Eliquis however I cannot find TSH lab so will order 1 now. She denies being on a rate controlling agent when asked names of medications explicitly. She has been taking Elliquis. Patient has history of COPD, CHF, pleural effusion and other complications. She is alert but guppy breathing. Currently a good candidate for BIPAP therapy mentally. Placed on this. ABG had been obtained on NE and shows patient not hypoxic or retaining CO2. An IV was placed and the patient was put on cardiac and pulse oximetry monitors. ECG showed an irregularly irregular narrow-complex tachycardia without associated P-waves, consistent with the diagnosis of Afib with RVR. Patient's O2 borderline but BP acceptable thus early priority in management was to slow the ventricular rate using diltiazem 0.25mg/kg. Patient not successfully rate- controlled with this (rate 110s-120s) so diltiazem 0.35mg/kg administered. Patient converts to NSR with this. Patient has transaminitis. She is hypoalbuminemic, chronically seen. Normal renal function. Hyperglycemia without anion gap acidosis. She has an elevated lactic acid. While we await the rest of her workup especially given history of heart failure and the pleural effusion seen on chest x-ray, will give a small fluid bolus and reassess despite concern for sepsis. Dimer greater than 2. Although patient is already anticoagulated, will proceed with CT PE study as this will also provide further differentiation of pleural effusion and lung parenchyma. Abdomen pelvis also added given transaminitis. She has a thrombocytosis, macrocytic anemia (stable) as well as leukocytosis. Has had thrombocytosis over past several lab draws, today more prominent. Patient is reassessed shortly after converting to NSR and is doing much better. Tachypnea is mild, rate low 20s although still labored. Stable for NC for the CT study. Although lactic acid is elevated and sepsis is considered, will defer 30cc/kg bolus given history of heart failure and BNP >30,000. Rather, patient likely to benefit from a bit of diuresis now so this is ordered. Approximately 540, patient resumes atrial fibrillation with a rate of 110s to 120s briefly but then is rate controlled by 5:45. She has an elevated troponin. Aspirin and 3 hour troponin are ordered. By 5:50 a.m., her right is again in the 130s. Given she cannot sustain rate control, will place on diltiazem drip. At bedside she notes that she is feeling much better than how she initially presented. On repeat lactic acid improved. Discussed with on-call hospitalist Dr. Reynolds who believes patient would benefit from returning to [facility] for continuity of care especially given recent thoracic surgery intervention and infectious disease consult for the findings of thoracentesis culture. Radiology over-read notes possible empyema. Patient discussed with on-call hospitalist Dr. Morris at [facility] on [facility] who accepts patient at 08:16, pending bed. Admitting Diagnosis: empyema. Requesting images be sent. == Critical Care: 1 or more vital organ systems impaired with a high probability of imminent or life-threatening deterioration in the patient's condition requiring frequent personal assessment and manipulation of the patient's condition. This included time spent evaluating the patient, speaking with EMS pre-hospital personnel and family, reviewing/interpreting laboratory/imaging studies, discussing the case with consultants or admitting teams, retrieving data and reviewing charts, monitoring for decompensation, documenting the visit, and performing bundled procedures exclusive of separately billed procedures. Differential Diagnosis Differential diagnosis: Likely acute exacerbation of chronic obstructive airways disease, congestive heart failure, community acquired pneumonia, pulmonary embolism and other (pleural effusion; PTX/tension PTX; ACS; afib/flutter with avr) Lab Data Attestation: I reviewed the patient's lab results. 07/29/24 03:32 07/29/24 03:32 Labs: Lab Results 07/29/24 07/29/24 07/29/24 Range/Units 03:31 03:32 03:54 WBC 17.2 H (4.5-10.0) K/mm3 RBC 2.62 L (4.2-5.4) M/mm3 Hgb 8.3 L (12.0-15.0) g/dL Hct 27.6 L (37.0-47.0) % MCV 105.3 H (80-100) fl MCH 31.7 (26-34) pg MCHC 30.1 L (32-36) g/dl RDW 15.3 H (11.5-14.5) % Plt Count 1290 H D (150-375) k/mm3 MPV 9.0 (7.4-10.4) fl Immature Gran % (Auto) Not Reportable Neut % (Auto) Not Reportable Lymph % (Auto) Not Reportable [place] % (Auto) Not Reportable Eos % (Auto) Not Reportable Baso % (Auto) Not Reportable Lymph # (Auto) Not Reportable [place] # (Auto) Not Reportable Eos # (Auto) Not Reportable Baso # (Auto) Not Reportable Abs Immat Gran (auto) Not Reportable Absolute Neuts (auto) Not Reportable Absolute Nucleated RBC Not Reportable Total Counted 100 Neutrophils % (Manual) 75 H (46-73) % Band Neutrophils % 1 (0-6) % Lymphocytes % (Manual) 20.0 (18-44) % Monocytes % (Manual) 3 (3-9) % Metamyelocytes % 1 % Nucleated RBC % Not Reportable Abs Neuts (Manual) 13.07 H (1.7-7.2) K/mm3 Abs Lymphs (Manual) 3.44 (1.1-4.5) K/mm3 Abs Monocytes (Manual) 0.51 (0.1-0.90) K/mm3 Platelet Estimate Increased (Adequate) Clumped Platelets Present Large Platelets Present Giant Platelets Present Hypochromasia 1+ Anisocytosis 1+ Microcytosis 1+ (NORMAL) Schistocytes Rare PT 15.3 H (11.1-14.7) Seconds INR 1.2 APTT 37.2 H (22.3-36.8) Seconds D-Dimer 2.60 H (<0.48) ug/mL Sodium 135 L (137-145) mmol/L Potassium 4.6 (3.4-5.0) mmol/L Chloride 99 (98-107) mmol/L Carbon Dioxide 26 (22-30) mmol/L Anion Gap 10 (4-12) mmol/L BUN 12 D (7-17) mg/dL Creatinine 0.65 L (0.7-1.0) mg/dL Estim Creat Clear Calc 61 ml/min Estimated GFR > 60 (59 - ) Glucose 160 H (65-110) mg/dL POC Capillary Glucose 145 H (65-105) mg/dl Lactic Acid 4.7 H* (0.7-2.0) mmol/L Calcium 8.5 (8.4-10.2) mg/dL Magnesium 3.4 H (1.6-2.3) mg/dL Total Bilirubin 0.6 (0.2-1.3) mg/dL AST 72 H (14-36) U/L ALT 29 (6-35) U/L Alkaline Phosphatase 133 H (38-126) U/L Troponin I 0.087 H* (0.000-0.034) ng/mL NT-Pro-B Natriuret Pep > 35876 H (19.9-100) pg/mL Total Protein 6.0 L (6.3-8.2) g/dL Albumin 2.9 L (3.5-5.1) g/dL Lipase (23-300) U/L TSH 2.010 (0.465-4.680) uIU/mL Urine Color (Yellow) Urine Appearance (Clear) Urine pH (5.0-9.0) Ur Specific [place] (1.001-1.035) Urine Protein (Negative) mg/dL Urine Glucose (UA) (Negative) mg/dL Urine Ketones (Negative) mg/dL Ur Blood (Man) (Negative) Urine Nitrate (Negative) Urine Bilirubin (Negative) Urine Urobilinogen (<2.0) mg/dL Add Ur Microanalysis Leukocyte Esterase Rfl (Negative) KATIE/UL Urine RBC (0-2) /hpf Urine WBC (0-3) /hpf Urine WBC Clumps (None) /HPF Ur Squamous Epith Cells (Few) /hpf Urine Bacteria /hpf Urine Casts Urine Mucus /lpf Nasal MRSA (PCR) (NOT DETECTE) Urine Opiates Screen (Negative) Urine Methadone Screen (Negative) Ur Barbiturates Screen (Negative) Ur Phencyclidine Scrn (Negative) Ur Amphetamine Screen (Negative) U Benzodiazepines Scrn (Negative) Urine Cocaine Screen (Negative) U Cannabinoids Screen (Negative) Influenza A (RT-PCR) Negative (Negative) Influenza B (RT-PCR) Negative (Negative) RSV (RT-PCR) Negative (Negative) SARS-CoV-2 RNA (RT-PCR) Negative (Negative) 07/29/24 07/29/24 07/29/24 Range/Units 04:30 05:50 06:46 WBC (4.5-10.0) K/mm3 RBC (4.2-5.4) M/mm3 Hgb (12.0-15.0) g/dL Hct (37.0-47.0) % MCV (80-100) fl MCH (26-34) pg MCHC (32-36) g/dl RDW (11.5-14.5) % Plt Count (150-375) k/mm3 MPV (7.4-10.4) fl Immature Gran % (Auto) Neut % (Auto) Lymph % (Auto) [place] % (Auto) Eos % (Auto) Baso % (Auto) Lymph # (Auto) [place] # (Auto) Eos # (Auto) Baso # (Auto) Abs Immat Gran (auto) Absolute Neuts (auto) Absolute Nucleated RBC Total Counted Neutrophils % (Manual) (46-73) % Band Neutrophils % (0-6) % Lymphocytes % (Manual) (18-44) % Monocytes % (Manual) (3-9) % Metamyelocytes % % Nucleated RBC % Abs Neuts (Manual) (1.7-7.2) K/mm3 Abs Lymphs (Manual) (1.1-4.5) K/mm3 Abs Monocytes (Manual) (0.1-0.90) K/mm3 Platelet Estimate (Adequate) Clumped Platelets Large Platelets Giant Platelets Hypochromasia Anisocytosis Microcytosis (NORMAL) Schistocytes PT (11.1-14.7) Seconds INR APTT (22.3-36.8) Seconds D-Dimer (<0.48) ug/mL Sodium (137-145) mmol/L Potassium (3.4-5.0) mmol/L Chloride (98-107) mmol/L Carbon Dioxide (22-30) mmol/L Anion Gap (4-12) mmol/L BUN (7-17) mg/dL Creatinine (0.7-1.0) mg/dL Estim Creat Clear Calc ml/min Estimated GFR (59 - ) Glucose (65-110) mg/dL POC Capillary Glucose (65-105) mg/dl Lactic Acid 2.3 H (0.7-2.0) mmol/L Calcium (8.4-10.2) mg/dL Magnesium (1.6-2.3) mg/dL Total Bilirubin (0.2-1.3) mg/dL AST (14-36) U/L ALT (6-35) U/L Alkaline Phosphatase (38-126) U/L Troponin I 0.089 H* (0.000-0.034) ng/mL NT-Pro-B Natriuret Pep (19.9-100) pg/mL Total Protein (6.3-8.2) g/dL Albumin (3.5-5.1) g/dL Lipase 48 (23-300) U/L TSH (0.465-4.680) uIU/mL Urine Color Yellow (Yellow) Urine Appearance Cloudy H (Clear) Urine pH 5.0 (5.0-9.0) Ur Specific [place] 1.021 (1.001-1.035) Urine Protein 1+ H (Negative) mg/dL Urine Glucose (UA) Negative (Negative) mg/dL Urine Ketones Negative (Negative) mg/dL Ur Blood (Man) Negative (Negative) Urine Nitrate Negative (Negative) Urine Bilirubin Negative (Negative) Urine Urobilinogen 0.2 (<2.0) mg/dL Add Ur Microanalysis Reviewed Leukocyte Esterase Rfl Negative (Negative) KATIE/UL Urine RBC 0-2 (0-2) /hpf Urine WBC 6-10 H (0-3) /hpf Urine WBC Clumps Present H (None) /HPF Ur Squamous Epith Cells Many H (Few) /hpf Urine Bacteria None seen /hpf Urine Casts >20 Urine Mucus Present /lpf Nasal MRSA (PCR) (NOT DETECTE) Urine Opiates Screen Negative (Negative) Urine Methadone Screen Negative (Negative) Ur Barbiturates Screen Negative (Negative) Ur Phencyclidine Scrn Negative (Negative) Ur Amphetamine Screen Negative (Negative) U Benzodiazepines Scrn Negative (Negative) Urine Cocaine Screen Negative (Negative) U Cannabinoids Screen Negative (Negative) Influenza A (RT-PCR) (Negative) Influenza B (RT-PCR) (Negative) RSV (RT-PCR) (Negative) SARS-CoV-2 RNA (RT-PCR) (Negative) 07/29/24 Range/Units 06:52 WBC (4.5-10.0) K/mm3 RBC (4.2-5.4) M/mm3 Hgb (12.0-15.0) g/dL Hct (37.0-47.0) % MCV (80-100) fl MCH (26-34) pg MCHC (32-36) g/dl RDW (11.5-14.5) % Plt Count (150-375) k/mm3 MPV (7.4-10.4) fl Immature Gran % (Auto) Neut % (Auto) Lymph % (Auto) [place] % (Auto) Eos % (Auto) Baso % (Auto) Lymph # (Auto) [place] # (Auto) Eos # (Auto) Baso # (Auto) Abs Immat Gran (auto) Absolute Neuts (auto) Absolute Nucleated RBC Total Counted Neutrophils % (Manual) (46-73) % Band Neutrophils % (0-6) % Lymphocytes % (Manual) (18-44) % Monocytes % (Manual) (3-9) % Metamyelocytes % % Nucleated RBC % Abs Neuts (Manual) (1.7-7.2) K/mm3 Abs Lymphs (Manual) (1.1-4.5) K/mm3 Abs Monocytes (Manual) (0.1-0.90) K/mm3 Platelet Estimate (Adequate) Clumped Platelets Large Platelets Giant Platelets Hypochromasia Anisocytosis Microcytosis (NORMAL) Schistocytes PT (11.1-14.7) Seconds INR APTT (22.3-36.8) Seconds D-Dimer (<0.48) ug/mL Sodium (137-145) mmol/L Potassium (3.4-5.0) mmol/L Chloride (98-107) mmol/L Carbon Dioxide (22-30) mmol/L Anion Gap (4-12) mmol/L BUN (7-17) mg/dL Creatinine (0.7-1.0) mg/dL Estim Creat Clear Calc ml/min Estimated GFR (59 - ) Glucose (65-110) mg/dL POC Capillary Glucose (65-105) mg/dl Lactic Acid (0.7-2.0) mmol/L Calcium (8.4-10.2) mg/dL Magnesium (1.6-2.3) mg/dL Total Bilirubin (0.2-1.3) mg/dL AST (14-36) U/L ALT (6-35) U/L Alkaline Phosphatase (38-126) U/L Troponin I (0.000-0.034) ng/mL NT-Pro-B Natriuret Pep (19.9-100) pg/mL Total Protein (6.3-8.2) g/dL Albumin (3.5-5.1) g/dL Lipase (23-300) U/L TSH (0.465-4.680) uIU/mL Urine Color (Yellow) Urine Appearance (Clear) Urine pH (5.0-9.0) Ur Specific [place] (1.001-1.035) Urine Protein (Negative) mg/dL Urine Glucose (UA) (Negative) mg/dL Urine Ketones (Negative) mg/dL Ur Blood (Man) (Negative) Urine Nitrate (Negative) Urine Bilirubin (Negative) Urine Urobilinogen (<2.0) mg/dL Add Ur Microanalysis Leukocyte Esterase Rfl (Negative) KATIE/UL Urine RBC (0-2) /hpf Urine WBC (0-3) /hpf Urine WBC Clumps (None) /HPF Ur Squamous Epith Cells (Few) /hpf Urine Bacteria /hpf Urine Casts Urine Mucus /lpf Nasal MRSA (PCR) Not detected (NOT DETECTE) Urine Opiates Screen (Negative) Urine Methadone Screen (Negative) Ur Barbiturates Screen (Negative) Ur Phencyclidine Scrn (Negative) Ur Amphetamine Screen (Negative) U Benzodiazepines Scrn (Negative) Urine Cocaine Screen (Negative) U Cannabinoids Screen (Negative) Influenza A (RT-PCR) (Negative) Influenza B (RT-PCR) (Negative) RSV (RT-PCR) (Negative) SARS-CoV-2 RNA (RT-PCR) (Negative) ABG Data ABG results: 07/29/24 03:27 Puncture Site Right radial ABG pH 7.353 ABG pCO2 40.2 ABG pO2 422.7 H ABG PO2/FiO2 Ratio > 0.00 ABG HCO3 21.8 L ABG O2 Saturation 99.8 ABG O2 Content 13.0 L ABG Base Excess -3.4 A-a Gradient < 0.0 Oxyhemoglobin 98.8 Total Hemoglobin 8.5 L O2 Delivery Device Nasal cannula O2 Liters/Min 2.0 FiO2 30 Imaging Data Attestation: I personally reviewed and interpreted this imaging study as follows: My impression: Patient has marked asymmetry on her chest x-ray particularly with concerning findings on the right. There does seem to be some shifting of structures to the right however there does not appear to be a pneumothorax as patient has lung markings throughout the left Bilateral pleural effusions on my independent interpretation of CT scan Radiologist's impression: CXR Stat Rad: There is a right pleural effusion with infiltrate and/or atelectasis in the right lung. This appears worsened compared to the previous examination of 07/16/2024. The heart is top-normal in size. There appear to be calcified lymph nodes present with parenchymal calcifications most compatible with old granulomatous disease. No incidental findings. CTA Chest: Artifact degrades image quality somewhat limiting the study. No pulmonary embolism is noted. There are atherosclerotic changes. No evidence of thoracic aortic aneurysm or dissection. The heart contains coronary artery calcifications. There are bilateral pleural effusions. The right pleural effusion contain small bubbles of air. Unless there has been intervention, this may be related to an empyema. There are bilateral areas of atelectasis and/or consolidation. There is a 9 mm nodule in the left upper lobe (series 6, image 42). There is evidence for old granulomatous disease. No incidental findings. CT Abd Pelvis: The liver is enlarged and of decreased attenuation which may be due to fatty infiltration and/or hepatocellular disease. The gallbladder is distended. No calcified gallstones are seen. Incidental findings: There is thickening of the adrenal glands which may be due to hypertrophy. No evidence of renal calculi or hydronephrosis. There are diverticula present on the colon. No significant inflammatory changes are noted. There are extensive atherosclerotic changes. There are heart rate stenosis these noted in the iliac and femoral arteries bilaterally. Probable anasarca. Impressions Chest/Abdomen/Pelvis CTA 07/29/24 06:41 IMPRESSION: Large bilateral pleural effusions with empyema suspected on the right. Gallbladder distention with surrounding inflammatory change. Inflammatory change within the lesser sac representing either venous congestion (as one would see with congestive heart failure) versus acute pancreatitis. Colonic diverticulosis with trace surrounding inflammatory change representing either venous congestion (as one would see with congestive heart failure) versus acute diverticulitis. Chest X-Ray 07/29/24 06:54 IMPRESSION: Large right-sided pleural effusion without focal infiltrate. ECG Data EKG #1: Attestation: I personally reviewed and interpreted this ECG as follows: ECG completion date: 07/29/24 ECG completion time: 03:22 Interpretation: Atrial fibrillation at a rate of 156 beats per minute. QRS 133. QT/QTC 295/383. Good R-wave progression across the precordial leads. No T-wave inversions. Intraventricular conduction delay. There due appear to be slight elevations in leads V1/V2/V3 but without reciprocal changes. No T-wave inversions. EKG #2: Attestation: I personally reviewed and interpreted this ECG as follows: ECG completion date: 07/29/24 ECG completion time: 03:22 Interpretation: Sinus tachycardia at a rate of 106 beats per minute. WV interval 124. QRS 130. QT/QTC 353/415. Good R-wave progression across the precordial leads. No T- wave inversions. EKG #3: Attestation: I personally reviewed and interpreted this ECG as follows: ECG completion date: 07/29/24 ECG completion time: 06:46 Interpretation: Sinus rhythm at a rate of 99 beats per minute. WV interval 148. QRS 128. QT/QTC 402/458. Good R-wave progression across the precordial leads. No T-wave inversions. Critical Care Time Critical Care Time Critical Care Time: Yes Total Critical Care Time: 60 Discharge Plan Discharge Clinical Impression: Shortness of breath, Hyperglycemia, Hypoalbuminemia, Abnormal transaminases, Thrombocytosis, Anemia, macrocytic, Leukocytosis, Atrial fibrillation with rapid ventricular response, Acidosis, lactic, Non-ST elevation ND (NSTEMI), Coronary artery calcification seen on computed tomography, Left upper lobe pulmonary nodule, Bilateral pleural effusion Patient Disposition: Acute Care Hospital Condition: Stable Patient Language: Mongolian Prescriptions: No Action Jardiance 10 mg tablet 10 mg PO DAILY Entresto 24-26 mg tablet 1 tablet PO BID aspirin 81 mg tablet,delayed release (DR/EC) 81 mg PO DAILY tacrolimus 0.1 % ointment 1 applic topical BID PRN (Reason: PSORIASIS) Rx Instructions: plaque psoriasis clobetasol 0.05 % cream 1 applic topical DAILY PRN (Reason: PSORIASIS) Rx Instructions: plaque psoriasis triamcinolone acetonide 0.1 % cream 1 applic topical BID PRN (Reason: PSORIASIS) Rx Instructions: for plaque psoriasis ezetimibe [Zetia] 10 mg tablet 10 mg PO DAILY Qty: 30 0RF ipratropium bromide 21 mcg (0.03 %) spray,non-aerosol See Rx Instructions .ROUTE .COMPLEX Qty: 30 5RF Dose Instruction: USE 2 SPRAY(S) IN EACH NOSTRIL THREE TIMES DAILY Rx Instructions: USE 2 SPRAY(S) IN EACH NOSTRIL THREE TIMES DAILY thiamine HCl (vitamin B1) 100 mg tablet 100 mg PO DAILY Qty: 100 3RF atorvastatin 40 mg tablet amoxicillin-pot clavulanate 875-125 mg tablet Eliquis 5 mg tablet spironolactone 25 mg tablet 25 mg PO DAILY fluticasone propionate 50 mcg/actuation spray,suspension 1 spray intranasal BID PRN (Reason: nasal congestion) Rx Instructions: administer into each nostril ferrous sulfate [FeroSul] 325 mg (65 mg iron) tablet 325 mg PO DAILY tramadol 50 mg tablet 50 mg PO Q6H PRN (Reason: pain) (DME) Space Chamber Spacer See Rx Instructions .ROUTE .COMPLEX Qty: 1 0RF Dose Instruction: USE DIRECTED Rx Instructions: USE DIRECTED Ezuzaphere 160-9-4.8 mcg/actuation HFA aerosol inhaler See Rx Instructions .ROUTE .COMPLEX Qty: 10.7 11RF Dose Instruction: INHALE 2 PUFFS IN THE MORNING AND IN THE EVENING RINSE AND SPIT AFTER EACH USE WITH A SPACER Rx Instructions: INHALE 2 PUFFS IN THE MORNING AND IN THE EVENING RINSE AND SPIT AFTER EACH USE WITH A SPACER omeprazole 20 mg tablet,delayed release (DR/EC) 20 mg PO DAILY Qty: 90 3RF albuterol sulfate 90 mcg/actuation HFA aerosol inhaler 1 inh INHALATION Q4H Qty: 8.5 3RF Follow-up/Referrals: Nu Shirley MD [Primary Care Provider] - Time of Disposition: 08:19
[2024-07-29] MEDS: dilTIAZem HCl INJ 25 MG/5 ML VIAL 15 MG IV PUSH (03:36)
[2024-07-29 03:39] LABS: Hematocrit 27.6 % (37.0-47.0); Hemoglobin 8.3 g/dL (12.0-15.0); Mean Corpuscular HGB Conc 30.1 g/dl (32-36); Mean Corpuscular Hemoglobin 31.7 pg (26-34); Mean Corpuscular Volume 105.3 fl (80-100); Platelet Count Result 1290 k/mm3 (150-375); Red Blood Count 2.62 M/mm3 (4.2-5.4); Red Cell Distribution Width 15.3 % (11.5-14.5); White Blood Count 17.2 K/mm3 (4.5-10.0)
--- OUTSIDE RECORDS SUMMARY | 2024-07-29 03:44 | XMS_ITS | Clinical Summary ---
Author Organization Unknown Care Team Providers Care Hops Farmworker Name Role Phone DAVE MUJICA [id number] INTERSTATE, SAIDA Unavailab le Unavailable KURT RN, GAVI Unavailable Unavailabl e OSMAN PT, JAYASHREE Unavailable Unavailable PATRICIA OT, VINCENT Unavailable Unavailable KYA CORPORATE TUTOR, LATOSHA Unavailable Unavailable [employer] SALES ASSOCIATE, NANCY Unavailable Unavailabl e Payers Payer Name Policy Type Policy Number Effective Date Expira tion Date [id number] Problems Condition Name Condition Details Condition Category Status Onset Date Resolution Date Last Treatment Date Treating Clinician Comments OTHER SPECIFIED CHRONIC OBSTRUCTIVE PULMONARY DISEASE Active 06-29 00:00: 00 HYPERTENSIVE HEART DISEASE WITH HEART FAILURE Active 06-29 00:00: 00 CHRONIC SYSTOLIC (CONGESTIVE) HEART FAILURE Active 06-05 00:00: 00 ATHSCL HEART DISEASE OF [place] CORONARY ARTERY W/O ANG PCTRS Active 06-05 00:00: 00 PULMONARY HYPERTENSION , UNSPECIFIED Active 06-05 00:00: 00 AGE-RELATED OSTEOPOROSIS W/O CURRENT PATHOLOGICAL FRACTURE Active 06-05 00:00: 00 HYPERLIPIDEM IA, UNSPECIFIED Active 06-05 00:00: 00 Allergies, Adverse Reactions, Alerts Allergy Name Allergy Type Status Severity Reaction(s) Onset Date Inactive Date Treating Clinician Comments MORPHINE Propensity to adverse reactions Active 2024-07 10:58:1 0 Medications Ordered Medication Name Filled Medication Name Start Date Stop Date Current Medication? Ordering Clinician Indication Dosage Frequency Signature (SIG) Comments Components tramadol 50 mg tablet 06-29 00:00: 00 Yes [id number] PAIN 1 tablet EVERY 6 HOURS 1 tablet EVERY 6 HOURS (route: oral) Med Classific ation: Analgesic , Anti-infl ammatory or Antipyret ic Breztri Aerosphere 160 mcg-9mcg-4. 8mcg/actuat ion HFA aerosol inhaler -18 00:00: 00 Yes [id number] BREATHING 2 puff TWICE DAILY 2 puff TWICE DAILY (route: inhalation ) Med Classific ation: Respirato ry Therapy Agents albuterol sulfate HFA 90 mcg/actuati on aerosol inhaler 03 00:00: 00 Yes [id number] SHORTNESS OF BREATH 1 puff EVERY 4 HOURS 1 puff EVERY 4 HOURS (route: inhalation ) Med Classific ation: Respirato ry Therapy Agents omeprazole 20 mg capsule,del ayed release 06-04 00:00: 00 Yes [id number] GERD 1 capsule ONCE DAILY 1 capsule ONCE DAILY (route: oral) Med Classific ation: Gastroint estinal Therapy Agents alprazolam 0.25 mg tablet 05-31 00:00: 00 07-11 00:00 :00 No [id number] Unavailable Per instruc tions 30 - 40 MINUTES Per instructio ns 30 - 40 MINUTES (route: oral) Med Classific ation: Central Nervous System Agents albuterol sulfate HFA 90 mcg/actuati on aerosol inhaler 07-11 00:00: 00 Yes [id number] DIFFICULTIE S WITH BREATHING 2 puff EVERY 4 HOURS 2 puff EVERY 4 HOURS (route: inhalation ) Med Classific ation: Respirato ry Therapy Agents aspirin 81 mg tablet,kaz yed release 07-11 00:00: 00 Yes [id number] BLOOD CLOT 1 tablet DAILY 1 tablet DAILY (route: oral) Med Classific ation: Hematolog ical Agents atorvastati n 40 mg tablet 07-11 00:00: 00 Yes [id number] CHOLESTEROL 1 tablet DAILY 1 tablet DAILY (route: oral) Med Classific ation: Cardiovas cular Therapy Agents cholecalcif kayy (vitamin D3) 1,250 mcg (50,000 unit) capsule 07-11 00:00: 00 Yes [id number] SUPPLEMENT 1 capsule DAILY 1 capsule DAILY (route: oral) Med Classific ation: Electroly te Balance-N utritiona l Products clobetasol 0.025 % topical cream 07-11 00:00: 00 Yes [id number] SKIN Per instruc tions DIRECTED Per instructio ns DIRECTED (route: topical) Med Classific ation: Dermatolo gical Daily Vitamin Formula tablet 07-11 00:00: 00 Yes [id number] SUPPLEMENT 1 tablet DAILY 1 tablet DAILY (route: oral) Med Classific ation: Electroly te Balance-N utritiona l Products Entresto 49 mg-51 mg tablet 07-11 00:00: 00 Yes [id number] BLOOD PRESSURE 1 tablet 2 TIMES DAILY 1 tablet 2 TIMES DAILY (route: oral) Med Classific ation: Cardiovas cular Therapy Agents ezetimibe 10 mg tablet 07-11 00:00: 00 Yes [id number] HEART 1 tablet DAILY 1 tablet DAILY (route: oral) Med Classific ation: Cardiovas cular Therapy Agents ferrous sulfate 325 mg (65 mg iron) tablet 07-11 00:00: 00 Yes [id number] SUPPLEMENT 1 tablet DAILY 1 tablet DAILY (route: oral) Med Classific ation: Electroly te Balance-N utritiona l Products Flonase Allergy Relief 50 mcg/actuati on nasal spray,suspe nsion 07-11 00:00: 00 Yes [id number] BREATHING 2 spray DAILY 2 spray DAILY (route: nasal) Med Classific ation: Respirato ry Therapy Agents Jardiance 10 mg tablet 07-11 00:00: 00 Yes [id number] HEART 1 tablet DAILY 1 tablet DAILY (route: oral) Med Classific ation: Endocrine spironolact one 25 mg tablet 07-11 00:00: 00 Yes [id number] FLUID RETENTION 1 tablet DAILY 1 tablet DAILY (route: oral) Med Classific ation: Cardiovas cular Therapy Agents vitamin B complex tablet 07-11 00:00: 00 Yes [id number] SUPPLEMENT 1 tablet DAILY 1 tablet DAILY (route: oral) Med Classific ation: Electroly te Balance-N utritiona l Products Vital Signs Vital Name Observation Time Observation [...] PHYSICIANS . RN TO OBSERVE AND ASSESS, CORPORATE TUTOR/KELP GATHERER TO OBSERVE FOR RISK FOR FALLS AND INSTRUCT IN FALL PREVENTION, HOME SAFETY, MEDICATION MANAGEMENT, INFECTION PREVENTION, AND NUTRITION MANAGEMENT. RN/CORPORATE TUTOR/KELP GATHERER NURSE MAY PERFORM O2 SATURATION LEVEL ON ADMISSION AND PRN FOR EVERY VISIT FOR RN TO ASSESS/CORPORATE TUTOR TO OBSERVE PATIENT, WITH NOTIFICATION TO THE PHYSICIAN IF SATURATION IS 90% IN THE ABSENCE OF MORE SPECIFIC PARAMETERS FROM THE PHYSICIAN. AGENCY MAY PERFORM A RESUMPTION OF CARE VISIT FOLLOWING ANY HOSPITAL ADMISSION. RN/CORPORATE TUTOR/KELP GATHERER TO MONITOR CO-MORBID CONDITIONS LISTED ON THE PLAN OF CARE AND ANY NEW CONDITIONS THAT PRESENT THEMSELVES DURING THIS EPISODE TO IDENTIFY CHANGES AND INTERVENE TO MINIMIZE COMPLICATIONS. [code = RN TO OBSERVE, ASSESS, EVALUATE, AND DEVELOP AN INDIVIDUALIZED PLAN OF CARE. AGENCY MAY ACCEPT ORDERS FROM CONSULTING PHYSICIANS . RN TO OBSERVE AND ASSESS, CORPORATE TUTOR/KELP GATHERER TO OBSERVE FOR RISK FOR FALLS AND INSTRUCT IN FALL PREVENTION, HOME SAFETY, MEDICATION MANAGEMENT, INFECTION PREVENTION, AND NUTRITION MANAGEMENT. RN/CORPORATE TUTOR/KELP GATHERER NURSE MAY PERFORM O2 SATURATION LEVEL ON ADMISSION AND PRN FOR EVERY VISIT FOR RN TO ASSESS/CORPORATE TUTOR TO OBSERVE PATIENT, WITH NOTIFICATION TO THE PHYSICIAN IF SATURATION IS 90% IN THE ABSENCE OF MORE SPECIFIC PARAMETERS FROM THE PHYSICIAN. AGENCY MAY PERFORM A RESUMPTION OF CARE VISIT FOLLOWING ANY HOSPITAL ADMISSION. RN/CORPORATE TUTOR/KELP GATHERER TO MONITOR CO-MORBID CONDITIONS LISTED ON THE PLAN OF CARE AND ANY NEW CONDITIONS THAT PRESENT THEMSELVES DURING THIS EPISODE TO IDENTIFY CHANGES AND INTERVENE TO MINIMIZE COMPLICATIONS.] Future Scheduled Test COPD MONIT ORING RN/KELP GATHERER/CORPORATE TUTOR TO MONITOR FOR SIGNS AND SYMPTOMS OF COPD EXACERBATION, MONITOR FOR ADHERENCE TO MEDICATION AND COPD MANAGEMENT. [code = COPD MONITORING RN/KELP GATHERER/CORPORATE TUTOR TO MONITOR FOR SIGNS AND SYMPTOMS OF COPD EXACERBATION, MONITOR FOR ADHERENCE TO MEDICATION AND COPD MANAGEMENT.] Future Scheduled Test RISK FOR H OSPITALIZATION; RN TO ASSESS/TEACH, KELP GATHERER/CORPORATE TUTOR TO OBSERVE/TEACH PATIENT/CAREGIVER ON RISK FOR HOSPITALIZATION/EMERGENCY ROOM VISITS, TEACH SIGNS AND SYMPTOMS THAT PUT PATIENT AT RISK, WHEN TO NOTIFY NURSE/PHYSICIAN OF COMPLICATIONS/DECLINE, AND WHEN TO CALL 911. [code = RISK FOR HOSPITALIZATION; RN TO ASSESS/TEACH, KELP GATHERER/CORPORATE TUTOR TO OBSERVE/TEACH PATIENT/CAREGIVER ON RISK FOR HOSPITALIZATION/EMERGENCY ROOM VISITS, TEACH SIGNS AND SYMPTOMS THAT PUT PATIENT AT RISK, WHEN TO NOTIFY NURSE/PHYSICIAN OF COMPLICATIONS/DECLINE, AND WHEN TO CALL 911.] Future Scheduled Test CARDIOVASC ULAR SYSTEM; RN TO ASSESS/TEACH, CORPORATE TUTOR/KELP GATHERER TO OBSERVE/TEACH RELATED TO ALTERED CARDIOVASCULAR STATUS TO MINIMIZE COMPLICATIONS AND REDUCE HOSPITALIZATION. [code = CARDIOVASCULAR SYSTEM; RN TO ASSESS/TEACH, CORPORATE TUTOR/KELP GATHERER TO OBSERVE/TEACH RELATED TO ALTERED CARDIOVASCULAR STATUS TO MINIMIZE COMPLICATIONS AND REDUCE HOSPITALIZATION.] Future Scheduled Test HYPERTENSI ON MANAGEMENT; RN TO ASSESS AND TEACH, CORPORATE TUTOR/KELP GATHERER TO OBSERVE AND TEACH WARNING SIGNS AND SYMPTOMS TO AVOID HOSPITALIZATION. [code = HYPERTENSION MANAGEMENT; RN TO ASSESS AND TEACH, CORPORATE TUTOR/KELP GATHERER TO OBSERVE AND TEACH WARNING SIGNS AND SYMPTOMS TO AVOID HOSPITALIZATION.] Future Scheduled Test RESPIRATOR Y SYSTEM MANAGEMENT; RN TO ASSESS AND TEACH, CORPORATE TUTOR/KELP GATHERER TO OBSERVE AND TEACH RELATED TO ALTERED RESPIRATORY STATUS TO MINIMIZE COMPLICATIONS AND REDUCE HOSPITALIZATION. [code = RESPIRATORY SYSTEM MANAGEMENT; RN TO ASSESS AND TEACH, CORPORATE TUTOR/KELP GATHERER TO OBSERVE AND TEACH RELATED TO ALTERED RESPIRATORY STATUS TO MINIMIZE COMPLICATIONS AND REDUCE HOSPITALIZATION.] Future Scheduled Test COPD MANAG EMENT; RN TO ASSESS AND TEACH, CORPORATE TUTOR/KELP GATHERER TO OBSERVE AND TEACH SIGNS/SYMPTOMS OF COPD EXACERBATION AND PROVIDE EARLY INTERVENTIONS TO MINIMIZE RISK OF HOSPITALIZATION. RN/CORPORATE TUTOR/KELP GATHERER TO INSTRUCT ON SELF-CARE MANAGEMENT INCLUDING BREATHING TECHNIQUES, AIRWAY CLEARANCE, AND PROPER USE OF COPD MEDICATIONS. RN TO ASSESS AND TEACH, CORPORATE TUTOR/KELP GATHERER TO OBSERVE AND TEACH PATIENT/CAREGIVER ABILITY TO MONITOR AND RECORD VITAL SIGNS INCLUDING PULSE OXIMETRY AND BLOOD PRESSURE. PULSE OXIMETER AND BP MONITOR TO BE PROVIDED IF NEEDED . [code = COPD MANAGEMENT; RN TO ASSESS AND TEACH, CORPORATE TUTOR/KELP GATHERER TO OBSERVE AND TEACH SIGNS/SYMPTOMS OF COPD EXACERBATION AND PROVIDE EARLY INTERVENTIONS TO MINIMIZE RISK OF HOSPITALIZATION. RN/CORPORATE TUTOR/KELP GATHERER TO INSTRUCT ON SELF-CARE MANAGEMENT INCLUDING BREATHING TECHNIQUES, AIRWAY CLEARANCE, AND PROPER USE OF COPD MEDICATIONS. RN TO ASSESS AND TEACH, CORPORATE TUTOR/KELP GATHERER TO OBSERVE AND TEACH PATIENT/CAREGIVER ABILITY TO MONITOR AND RECORD VITAL SIGNS INCLUDING PULSE OXIMETRY AND BLOOD PRESSURE. PULSE OXIMETER AND BP MONITOR TO BE PROVIDED IF NEEDED .] Future Scheduled Test ASTHMA MAN AGEMENT; RN TO ASSESS AND TEACH, CORPORATE TUTOR/KELP GATHERER TO OBSERVE AND TEACH ASTHMA MANAGEMENT AND PROVIDE EARLY INTERVENTIONS TO MINIMIZE RISK OF HOSPITALIZATION [code = ASTHMA MANAGEMENT; RN TO ASSESS AND TEACH, CORPORATE TUTOR/KELP GATHERER TO OBSERVE AND TEACH ASTHMA MANAGEMENT AND PROVIDE EARLY INTERVENTIONS TO MINIMIZE RISK OF HOSPITALIZATION] Future Scheduled Test PAIN MANAG EMENT; RN TO ASSESS AND TEACH, KELP GATHERER/CORPORATE TUTOR TO OBSERVE AND TEACH AND PROVIDE EDUCATION ON PAIN MANAGEMENT TECHNIQUES. [code = PAIN MANAGEMENT; RN TO ASSESS AND TEACH, KELP GATHERER/CORPORATE TUTOR TO OBSERVE AND TEACH AND PROVIDE EDUCATION ON PAIN MANAGEMENT TECHNIQUES.] Future Scheduled Test PRN VISITS ; NUMBER OF RN/CORPORATE TUTOR/KELP GATHERER VISITS: 1 RN/CORPORATE TUTOR/KELP GATHERER TO PERFORM: RESPIRATORY MANAGEMENT FOR THE FOLLOWING REASONS: COMPLICATIONS [code = PRN VISITS; NUMBER OF RN/CORPORATE TUTOR/KELP GATHERER VISITS: 1 RN/CORPORATE TUTOR/KELP GATHERER TO PERFORM: RESPIRATORY MANAGEMENT FOR THE FOLLOWING [...] TION MANAGEMENT; RN TO ASSESS AND OBSERVE, CORPORATE TUTOR/KELP GATHERER TO OBSERVE FALL RISK FACTORS AND EDUCATE PATIENT/CAREGIVER ON STRATEGIES TO MINIMIZE THE RISK OF FALLING. [code = FALL REDUCTION MANAGEMENT; RN TO ASSESS AND OBSERVE, CORPORATE TUTOR/KELP GATHERER TO OBSERVE FALL RISK FACTORS AND EDUCATE [...] AND FUNCTIONAL TRANSFERS IN HOME ENVIRONMENT. BATHING/SHOWERING (OT/PSYCHOLOGICAL SCIENCE PROFESSOR) ACTIVITIES OF DAILY LIVING (OT/PSYCHOLOGICAL SCIENCE PROFESSOR) BATH/SHOWER TRANSFER (OT/PSYCHOLOGICAL SCIENCE PROFESSOR) OT/DARRYL TO MONITOR AND EDUCATE ON OXYGEN SATURATION DURING ADLS/IADLS, NOTIFY PHYSICIAN AND/OR THE RN CLINICAL DISTILLERY MILLER HELPER FOR PHYSICIAN NOTIFICATION AND IF O2 SATS BELOW 90% AFTER 10 MIN OF REST. OT / DARRYL TO IDENTIFY FALL RISK FACTORS; EDUCATE THE PATIENT/CAREGIVER ON WAYS TO REDUCE FALL RISK FACTORS AND ESTABLISH HOME EXERCISE PROGRAM TO MINIMIZE FALL RISK. MAY TEACH THE PATIENT FLOOR RECOVERY WHEN CLINICALLY APPROPRIATE. OT/PSYCHOLOGICAL SCIENCE PROFESSOR TO EDUCATE ON HYPERTENSION SELF-MANAGEMENT OT/DARRYL TO EDUCATE ON COPD SELF-MANAGEMENT [code = AGENCY MAY PERFORM A RESUMPTION OF CARE VISIT FOLLOWING ANY HOSPITAL ADMISSION. OT TO EVALUATE, OBSERVE / ASSESS, AND MONITOR, PSYCHOLOGICAL SCIENCE PROFESSOR TO OBSERVE AND MONITOR, PROVIDE SKILLED THERAPEUTIC INTERVENTION, ACTIVITY, EDUCATION, AND TRAINING TO ADDRESS SAFETY AND INDEPENDENCE OF ADLS AND FUNCTIONAL TRANSFERS IN HOME ENVIRONMENT. BATHING/SHOWERING (OT/DARRYL) ACTIVITIES OF DAILY LIVING (OT/DARRYL) BATH/SHOWER TRANSFER (OT/PSYCHOLOGICAL SCIENCE PROFESSOR) OT/PSYCHOLOGICAL SCIENCE PROFESSOR TO MONITOR AND EDUCATE ON OXYGEN SATURATION DURING ADLS/IADLS, NOTIFY PHYSICIAN AND/OR THE RN CLINICAL DISTILLERY MILLER HELPER FOR PHYSICIAN NOTIFICATION AND IF O2 SATS BELOW 90% AFTER 10 MIN OF REST. OT / PSYCHOLOGICAL SCIENCE PROFESSOR TO IDENTIFY FALL RISK FACTORS; EDUCATE THE PATIENT/CAREGIVER ON WAYS TO REDUCE FALL RISK FACTORS AND ESTABLISH HOME EXERCISE PROGRAM TO MINIMIZE FALL RISK. MAY TEACH THE PATIENT FLOOR RECOVERY WHEN CLINICALLY APPROPRIATE. OT/DARRYL TO EDUCATE ON HYPERTENSION SELF-MANAGEMENT OT/PSYCHOLOGICAL SCIENCE PROFESSOR TO EDUCATE ON COPD SELF-MANAGEMENT] Future Scheduled Test AGENCY MAY PERFORM A RESUMPTION OF CARE VISIT FOLLOWING ANY HOSPITAL ADMISSION. PT TO EVALUATE, OBSERVE / ASSESS, AND MONITOR, OPTICAL SALES ASSOCIATE TO OBSERVE AND MONITOR, PROVIDE SKILLED THERAPEUTIC INTERVENTION, ACTIVITY, EDUCATION, AND TRAINING TO ADDRESS; PT/OPTICAL SALES ASSOCIATE TO PROVIDE GAIT TRAINING FOR IMPROVED MOBILITY AND /OR TO NORMALIZE GAIT PATTERN NEUROMUSCULAR RE-EDUCATION / BALANCE / POSTURAL CONTROL (PT) THERAPEUTIC EXERCISES AND ESTABLISHING A HOME EXERCISE PROGRAM (PT/OPTICAL SALES ASSOCIATE) PT/OPTICAL SALES ASSOCIATE TO PROVIDE STAIR TRAINING SIT TO/FROM STAND TRANSFERS (PT/OPTICAL SALES ASSOCIATE) PT / OPTICAL SALES ASSOCIATE TO MONITOR AND EDUCATE ON OXYGEN SATURATION DURING ADLS/IADLS, NOTIFY PHYSICIAN AND/OR THE RN CLINICAL DISTILLERY MILLER HELPER FOR PHYSICIAN NOTIFICATION AND IF O2 SATS BELOW PHYSICIAN ORDERED PARAMETERS AFTER 10 MIN OF REST PT / OPTICAL SALES ASSOCIATE TO EDUCATE ON COPD SELF-MANAGEMENT PT/OPTICAL SALES ASSOCIATE TO IDENTIFY FALL RISK FACTORS; EDUCATE THE PATIENT/CAREGIVER ON WAYS TO REDUCE FALL RISK FACTORS AND ESTABLISH HOME EXERCISE PROGRAM TO MINIMIZE FALL RISK. MAY TEACH THE PATIENT FLOOR RECOVERY WHEN CLINICALLY APPROPRIATE [code = AGENCY MAY PERFORM A RESUMPTION OF CARE VISIT FOLLOWING ANY HOSPITAL ADMISSION. PT TO EVALUATE, OBSERVE / ASSESS, AND MONITOR, OPTICAL SALES ASSOCIATE TO OBSERVE AND MONITOR, PROVIDE SKILLED THERAPEUTIC INTERVENTION, ACTIVITY, EDUCATION, AND TRAINING TO ADDRESS; PT/OPTICAL SALES ASSOCIATE TO PROVIDE GAIT TRAINING FOR IMPROVED MOBILITY AND /OR TO NORMALIZE GAIT PATTERN NEUROMUSCULAR RE-EDUCATION / BALANCE / POSTURAL CONTROL (PT) THERAPEUTIC EXERCISES AND ESTABLISHING A HOME EXERCISE PROGRAM (PT/OPTICAL SALES ASSOCIATE) PT/OPTICAL SALES ASSOCIATE TO PROVIDE STAIR TRAINING SIT TO/FROM STAND TRANSFERS (PT/OPTICAL SALES ASSOCIATE) PT / OPTICAL SALES ASSOCIATE TO MONITOR AND EDUCATE ON OXYGEN SATURATION DURING ADLS/IADLS, NOTIFY PHYSICIAN AND/OR THE RN CLINICAL DISTILLERY MILLER HELPER FOR PHYSICIAN NOTIFICATION AND IF O2 SATS BELOW PHYSICIAN ORDERED PARAMETERS AFTER 10 MIN OF REST PT / OPTICAL SALES ASSOCIATE TO EDUCATE ON COPD SELF-MANAGEMENT PT/OPTICAL SALES ASSOCIATE TO IDENTIFY FALL RISK FACTORS; EDUCATE THE [...] End Date/Time Encounter Type Admission Type Attending Clinicians Care Facility Care Department Encounter ID Discharge Date Discharge Status Discharge Condition Discharge Reason Percent Goals Met 2024-07-11 00:00:00 2024-09-08 00:00:00 Outpatient NEW ADMISSION [facility] [id number]
[2024-07-29 03:53] LABS: Glucose Point of Care 145 mg/dl (65-105)
[2024-07-29 03:53] LABS: INR 1.2; Prothrombin Time 15.3 Seconds (11.1-14.7)
[2024-07-29 03:55] LABS: Partial Thromboplastin Time 37.2 Seconds (22.3-36.8)
--- NOTE | 2024-07-29 03:58 | ECG_ITS ---
Test Date: 2024-07-29 06:46:11 Measurements Intervals [place] Rate: 99 P: 59 KS: 148 QRS: -12 QRSD: 128 T: 88 QT: 402 QTc: 517 Interpretive Statements SINUS RHYTHM WITH OCCASIONAL SUPRAVENTRICULAR PREMATURE COMPLEXES SEPTAL MYOCARDIAL INFARCTION , OF INDETERMINATE AGE [40+ ms Q WAVE IN V1/V2] INTRAVENTRICULAR CONDUCTION DELAY LOW LIMB LEAD VOLTAGE Compared to ECG 07/29/2024 04:22:28 Sinus tachycardia no longer present Myocardial infarct finding still present Electronically Signed On 07-29-2024 10:14:02 CDT by Nicolás Morgan M.D.
[2024-07-29 04:04] LABS: Alveolar/Arterial O2 Gradient < 0.0 mmHg; Base Excess ABG -3.4 mEq/l (+/-2.0); Fractional Inspired Oxygen 30 %; HCO3 ABG 21.8 mEq/l (22.0-26.0); Oxygen Saturation ABG 99.8 % (95.0-100.0); Oxyhemoglobin 98.8 % THb (90.0-100.0); PCO2 ABG 40.2 mmHg (35.0-45.0); PO2 ABG 422.7 mmHg (80.0-100.0); PO2 FiO2 Ratio Arterial Blood > 0.00 %; Total Hemoglobin 8.5 g/dL (12.0-18.0); pH ABG 7.353 (7.350-7.450)
[2024-07-29 04:07] LABS: Band Neutrophils Percent 1 % (0-6); Lymphocytes Absolute Manual 3.44 K/mm3 (1.1-4.5); Metamyelocytes Percent 1 %; Monocytes Absolute Manual 0.51 K/mm3 (0.1-0.90); Monocytes Percent Manual 3 % (3-9); Neutrophils Absolute Manual 13.07 K/mm3 (1.7-7.2); Neutrophils Percent Manual 75 % (46-73); Total Cells Counted 100
[2024-07-29 04:08] LABS: Anisocytosis 1+; Giant Platelets Present; Large Platelets Present; Microcytosis 1+ (NORMAL); Platelet Clumps Present; Platelet Estimate Increased (Adequate)
[2024-07-29 04:09] LABS: Hypochromasia 1+; Schistocytes Rare
--- NOTE | 2024-07-29 04:10 | PCRCNOTE ---
ABG delayed due to labs being drawn
[2024-07-29] MEDS: dilTIAZem HCl INJ 25 MG/5 ML VIAL 20 MG IV PUSH (04:13)
[2024-07-29 04:15] LABS: Device NASAL CANNULA; Modified Allen's Test Pass; Site Drawn RIGHT RADIAL
[2024-07-29 04:18] LABS: Alanine Aminotransferase 29 U/L (6-35); Albumin Level 2.9 g/dL (3.5-5.1); Alkaline Phosphatase 133 U/L (38-126); Anion Gap 10 mmol/L (4-12); Aspartate Amino Transferase 72 U/L (14-36); Bilirubin,Total 0.6 mg/dL (0.2-1.3); Blood Urea Nitrogen 12 mg/dL (7-17); Calcium 8.5 mg/dL (8.4-10.2); Carbon Dioxide 26 mmol/L (22-30); Chloride 99 mmol/L (98-107); Estimated CRCL calculation 61 ml/min; Estimated Glomerular Filt Rate > 60; Glucose 160 mg/dL (65-110); Magnesium 3.4 mg/dL (1.6-2.3); NT Pro B Type Natriuretic Pept > 30000 pg/mL (19.9-100); Potassium 4.6 mmol/L (3.4-5.0); Sodium 135 mmol/L (137-145); Troponin I 0.087 ng/mL (0.000-0.034)
[2024-07-29 04:19] LABS: Lactic Acid Reflex 4.7 mmol/L (0.7-2.0)
--- NOTE | 2024-07-29 04:38 | PC.NURSE ---
Patient taken to CT via stretcher while on transport monitor and 2L via NC.
[2024-07-29 04:44] LABS: Influenza A QL RT-PCR Negative (Negative); Influenza B QL RT-PCR Negative (Negative); RSV RNA, RT-PCR Negative (Negative); SARS-CoV-2 RNA PCR Negative (Negative)
[2024-07-29 04:55] LABS: Amphetamine Screen Urine Negative (Negative); Barbiturate Screen Urine Negative (Negative); Benzodiazepines Screen Urine Negative (Negative); Cannabinoid Screen Urine Negative (Negative); Cocaine Screen Urine Negative (Negative); Methadone Screen Urine Negative (Negative); Opiate Screen Urine Negative (Negative); Phencyclidine Screen Urine Negative (Negative)
[2024-07-29 05:02] LABS: Add Urine Microscopic? YES; Appearance Urine Cloudy (Clear); Bacteria Urine None Seen /hpf; Bilirubin Urine Negative (Negative); Blood Urine Negative (Negative); Color Urine Yellow (Yellow); Glucose Urine UA Negative (Negative); Ketones Urine Negative (Negative); Leukocyte Esterase Ur Negative LEU/UL (Negative); Mucus Urine Present /lpf; Need Manual Microscopic Reviewed; Nitrate Urine Negative (Negative); Non Pathogenic Casts >20; Protein Urine 1+ mg/dL (Negative); RBC Urine 0-2 /hpf (0-2); Specific Grav Ur 1.021 (1.001-1.035); Squamous Epithelial Cell Urine Many /hpf (Few); Urobilinogen Urine 0.2 mg/dL (<2.0); WBC Clumps Urine Present /HPF
[2024-07-29] MEDS: SODIUM CHLORIDE 0.9% IV 500 ML 999 ML IV CONT (05:02)
[2024-07-29 05:37] LABS: Reflex Lactic Acid Yes or No Add Lactic
[2024-07-29] MEDS: FUROSEMIDE INJ 40 MG/4 ML VIAL IV PUSH (05:44)
[2024-07-29] MEDS: ASPIRIN 81 MG CHEWABLE TABLET 324 MG PO (05:53)
[2024-07-29] MEDS: dilTIAZem 100 MG/100 ML 100 MG/100 ML BAG IV CONT (05:56)
[2024-07-29 06:03] LABS: Lactic Acid 2.3 mmol/L (0.7-2.0)
--- NOTE | 2024-07-29 06:12 | PC.NURSE ---
Diltizem drip verified by this RN and Madison Stovall RN.
--- NOTE | 2024-07-29 06:31 | ECG_ITS ---
Test Date: 2024-07-29 03:22:00 Measurements Intervals [place] Rate: 156 P: 0 UT: 0 QRS: -11 QRSD: 133 T: 88 QT: 295 QTc: 476 Interpretive Statements SINUS TACHYCARDIA INTRAVENTRICULAR CONDUCTION DELAY [130+ ms QRS DURATION] ANTEROSEPTAL MYOCARDIAL INFARCTION , OF INDETERMINATE AGE [40+ ms Q WAVE IN V1-V4] Compared to ECG 07/17/2024 09:54:03 NO SIGNIFICANT CHANGES Electronically Signed On 07-29-2024 10:12:30 CDT by Nicolás Morgan M.D.
[2024-07-29] MEDS: CEFEPIME 1 GM/NS 50 ML 1 GM/50 ML BAG IVPB (06:54)
[2024-07-29 07:19] LABS: Troponin I 0.089 ng/mL (0.000-0.034)
[2024-07-29] MEDS: VANCOMYCIN 1,500 MG/NS 500 ML 1,500 MG/500 ML BAG 250 MG IVPB (07:49)
[2024-07-29 07:55] LABS: Lipase 48 U/L (23-300)
[2024-07-29 08:15] LABS: MRSA (PCR) NOT DETECTED (NOT DETECTE)
== END 2024-07-29 11:15 | disposition short-term general hospital (02) ==
PROVIDERS: Emergency Provider Student in an Organized Health Care Education/Training Program; PCP Family Medicine
DX: I21.4 Non-ST elevation (NSTEMI) myocardial infarction (principal); I48.91 Unspecified atrial fibrillation; D53.9 Nutritional anemia, unspecified; E87.20 Acidosis, unspecified; D75.839 Thrombocytosis, unspecified; E88.09 Other disorders of plasma-protein metabolism, not elsewhere classified; R73.9 Hyperglycemia, unspecified; J90 Pleural effusion, not elsewhere classified; D72.829 Elevated white blood cell count, unspecified; R91.1 Solitary pulmonary nodule; Z20.822 Contact with and (suspected) exposure to COVID-19; I25.5 Ischemic cardiomyopathy; I50.9 Heart failure, unspecified; I11.0 Hypertensive heart disease with heart failure; I25.10 Atherosclerotic heart disease of native coronary artery without angina pectoris; J43.8 Other emphysema; E78.5 Hyperlipidemia, unspecified; M81.0 Age-related osteoporosis without current pathological fracture; Z95.5 Presence of coronary angioplasty implant and graft; Z87.891 Personal history of nicotine dependence; Z79.84 Long term (current) use of oral hypoglycemic drugs; Z79.82 Long term (current) use of aspirin; Z79.01 Long term (current) use of anticoagulants; Z79.899 Other long term (current) drug therapy; I49.1 Atrial premature depolarization; I45.9 Conduction disorder, unspecified; K57.90 Diverticulosis of intestine, part unspecified, without perforation or abscess without bleeding
CPT/HCPCS: 36415; 36600; 71045; 71275; 74177; 80053; 80307; 81001; 82805; 82948; 83605; 83690; 83735; 83880; 84443; 84484; 85018; 85025; 85380; 85610; 85730; 87040; 87637; 87641; 93005; 94002; 96365; 96366; 96367; 96375; 96376; 99291; A9270; J0692; J1938; J3370; J7040; Q9967

== ENCOUNTER 2024-10-24 14:27 | Outpatient (CLI) | payer MEDICARE, SELFPAY ==
--- NOTE | ~2024-10-24 | XR_ITS ---
XR chest 2V 10/24/2024 15:03 Indication: Follow-up empyema Procedure: 2 view chest Comparison: CT dated 07/29/2024 and chest x-ray dated 07/29/2024 Findings: Heart size normal. Left lung clear. Chronic loculated right pleural effusion. There is evidence of chronic granulomatous disease. There is right basilar infiltrates which may represent atelectasis or scarring. The lungs are hyperinflated which is consistent with, but not diagnostic of chronic obstructive pulmonary disease. Impression: 1: Chronic loculated right pleural effusion, but is seen on lateral view. Reviewed, dictated and finalized at location A. Impression: 1: Chronic loculated right pleural effusion, but is seen on lateral view.
--- OUTSIDE RECORDS SUMMARY | 2024-10-24 14:42 | XMS_ITS | Clinical Summary ---
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 Active Cholecalciferol, Vitamin D3, 10,000 unit Capsule Take 10,000 Units by mouth daily. Active omeprazole (PriLOSEC) 20 mg Tablet, Delayed Release (E.C.) Take 20 mg by mouth daily before breakfast. Active OTHER [place] Mushroom 2 tablets daily . Active atorvastatin (LIPITOR) 40 mg tablet Take 1 tablet by mouth once daily 0 Active budesonide-glyco pyr-formoterol (Breztri Aerosphere) 160-9-4.8 mcg/actuation HFA Aerosol Inhaler Take 2 Puffs by inhalation 2 times daily. 1 Active ezetimibe (ZETIA) 10 mg tablet Take 1 Tablet by mouth daily. 2 Active empagliflozin (JARDIANCE) 10 mg tablet Take 10 mg by mouth daily. 3 Active fluticasone propionate (FLONASE) 50 mcg/spray [place], Suspension nasal inhaler Administer 2 Sprays in each nostril daily. 2 Active inhalational spacing device (Space Chamber) Spacer as directed 3 Active CYANOCOBALAMIN, VITAMIN B-12, ORAL Take by mouth. Activ e ferrous sulfate 325 mg (65 mg iron) tablet Take 1 Tablet (325 mg) by mouth daily. 30 Tablet 5 Active traMADol (ULTRAM) 50 mg tabletIndication s:Postprocedural pneumothorax Take 1 Tablet (50 mg) by mouth every 6 hours as needed for Pain. 20 Tablet 5 Active thiamine mononitrate (VITAMIN B-1) 100 mg tablet Take 1 Tablet (100 mg) by mouth daily. 5 Active metoprolol succinate (TOPROL XL) 25 mg Extended Release 24 hour tablet Take 1 Tablet (25 mg) by mouth daily. 5 Active gabapentin (NEURONTIN) 300 mg capsule Take 1 Capsule (300 mg) by mouth every 8 hours. 5 Active acetaminophen (TYLENOL) 325 mg tablet Take 2 Tablets (650 mg) by mouth every 6 hours as needed for Pain. 5 Active apixaban (ELIQUIS) 5 mg tablet Take 1 Tablet (5 mg) by mouth 2 times daily. 5 Active loperamide (IMODIUM) 2 mg capsule Take 1 Capsule (2 mg) by mouth 4 times daily as needed for Diarrhea/Loose Stools. 30 Capsule 5 Active oxyCODONE (ROXICODONE) 5 mg tabletIndication s:Empyema (CMS/HCC),Pleura l effusion Take 1 Tablet (5 mg) by mouth every 4 hours as needed for Pain. Max Daily Amount: 30 mg 10 Tablet 5 Active sacubitriL-valsa rtan (ENTRESTO) 24-26 mg Tablet Take 1 Tablet by mouth 2 times daily. 5 Active spironolactone (ALDACTONE) 25 mg tablet Take 0.5 Tablets (12.5 mg) by mouth daily. 5 Active levalbuterol (XOPENEX) 0.63 mg/3 mL Solution for Nebulization Take 3 mL (0.63 mg) by inhalation every 8 hours as needed for Shortness of Breath or Wheezing. 5 Active furosemide (LASIX) 20 mg tablet Take 1 Tablet (20 mg) by mouth daily. 5 Active naloxone (NARCAN) 4 mg/spray [place], Non-Aerosol EMERGENCY USE ONLY: Administer 1 spray (4 mg) in one nostril one time. May repeat in alternating nostrils every 2-3 min until responsive or EMS arrives. 2 Each 3 5 Active Active Problems Patient Care Coordination No te Formatting of this note migh t be different from the original. Primary Care: Stacey Wyatt MD Referring Provider: Stacey Wyatt MD NO ADDRESS ON FILE Other: Dr. Claribel Castillo MD Problem Noted Date Diagnosed Date History of breast cancer 08/06/2024 Streptococcal infection 08/06/2024 HFrEF (heart failure with reduced ejection fract ion) 08/04/2024 Paroxysmal atrial fibrillation 08/04/2024 Congestive heart failure 07/30/2024 Weakness generalized 07/26/2024 Atrial fibrillation with RVR 07/24/2024 Bilateral pleural effusion 07/23/2024 Moderate protein malnutrition 07/20/2024 Empyema 07/17/2024 Left upper lobe pulmonary nodule 06/28/2024 Postprocedural pneumothorax 06/26/2024 Chronic systolic CHF (congestive heart failure) 06/26/2024 Iron deficiency anemia 06/26/2024 Abnormality of left breast on screening mammogra m 12/01/2019 History of tobacco use 03/01/2019 Abnormal mammogram of right breast [...] Encounters Date Type Department Care Team Description 10/02/2024 External Device Data [facility] Provider, Abstract 09/04/2024 External Device Data [facility] Provider, Abstract 09/04/2024 External Device Data [facility] Provider, Abstract 08/21/2024 External Device Data [facility] Provider, Abstract 08/21/2024 Telephone [facility] at [facility] [id number] [place] [address] Tray Cerna MD Information 07/29/2024 11:47 AM CDT - 08/09/2024 12:10 PM CDT Hospital Encounter [facility] Telemetry [address] [place] [phone] Mendel Banks MD Vaziri, Javad Christopher, DO Krvavac, Armin, MD Zhang, Qin, MD Hilliard, MD Sandeep Sun, MD Isabel Empyenicole ([facility]) Discharge Disposition: Detention Fac(SNF) with Medicare Certification in Anticipation of Skilled Care 07/26/2024 External Device Data [facility] Provider, Abstract 07/26/2024 External Device Data [facility] Provider, Abstract 07/26/2024 External Device Data [facility] Provider, Abstract 07/25/2024 External Device Data [facility] Provider, Abstract 07/24/2024 External Device Data [facility] Provider, Abstract 07/17/2024 4:35 PM CDT - 07/26/2024 6:41 PM CDT Hospital Encounter [facility] Telemetry [address] [place] [phone] Mayra Watts MD Douglas, MD Loli Perdue, MD Milton Santana Musi, MD Empyenicole ([facility]) Discharge Disposition: Detention Fac(SNF) with Medicare Certification in Anticipation of Skilled Care from Last 3 Months Family History Medical History Relation Name Comments Cancer Brother prostate; at 67 Prostate Cancer Brother Cancer Mother Zulma Garsia Breast Cancer Sister Aubree Gonzalez Ovarian Cancer Neg Hx Relation Name Status Comments Brother Mother Zulma Garsia Sister Aubree Gonzalez Alive Social History Tobacco Use Types Packs/Day Years Used Date Smoking Tobacco: Some Days Cigarettes 0.2 41.5 Started: 06/16/1977; Last attempted to quit: 06/16/2017 [...] Sign Reading Time Taken Comments Blood Pressure 106/76 08/09/2024 11:33 AM CDT Pulse 99 08/09/2024 11:33 AM CDT Temperature 36.2 C (97.2 F) 08/09/2024 11:33 AM CDT Respiratory Rate 28 08/09/2024 11:33 AM CDT Oxygen Saturation 97% 08/09/2024 11:33 AM CDT Inhaled Oxygen Concentration - - Weight 58.1 kg (128 lb 1.6 oz) 08/09/2024 11:33 AM CDT Height 165.1 cm (5' 5) 07/29/2024 12:13 PM CDT Body Mass Index 21.32 07/29/2024 12:13 PM CDT Plan of Treatment Health Maintenance [...] - Risk 60-74 years 1-dose series) 2012 Medicare [place] Preventative Visit/Annual Wellness Visit 03/07/2024 INFLUENZA VACCINE (#1) 2024 BREAST CANCER SCREENING 02/12/2025 02/13/20 24, 08/05/2023, 01/11/2023, Additional history exists OSTEOPOROSIS SCREENING 01/12/2028 3, 01/11/2023, 12/31/2021, Additional history exists Procedures Procedure Name Priority Date/Time Associated Diagnosis Comments TELEMETRY REPORT 08/10/2024 4:31 PM CDT POC GLUCOSE Routine 08/09/2024 8:36 AM CDT EKG 12-LEAD Stat 08/09/2024 1:06 AM CDT POC GLUCOSE Routine 08/08/2024 9:09 PM CDT POC GLUCOSE Routine 08/08/2024 4:07 PM CDT POC GLUCOSE Routine 08/08/2024 12:10 PM CDT POC GLUCOSE Routine 08/08/2024 9:15 AM CDT BASIC METABOLIC PANEL Routine 08/08/2024 2:13 AM CDT CBC WITH DIFFERENTIAL Routine 08/08/2024 2:13 AM CDT POC GLUCOSE Routine 08/07/2024 10:58 PM CDT POC GLUCOSE Routine 08/07/2024 4:59 PM CDT POC GLUCOSE Routine 08/07/2024 12:24 PM CDT POC GLUCOSE Routine 08/07/2024 8:01 AM CDT BASIC METABOLIC PANEL Routine 08/07/2024 2:07 AM CDT CBC WITH DIFFERENTIAL Routine 08/07/2024 2:07 AM CDT POC GLUCOSE Routine 08/06/2024 4:54 PM CDT XR CHEST PA OR AP 1 VW Routine 5 2:48 PM CDT POC GLUCOSE Routine 08/06/2024 12:50 PM CDT POC GLUCOSE Routine 08/06/2024 8:10 AM CDT XR CHEST PA OR AP 1 VW Routine 6:11 AM CDT BASIC METABOLIC PANEL Routine 08/06/2024 1:06 AM CDT CBC WITH DIFFERENTIAL Routine 08/06/2024 1:06 AM CDT POC GLUCOSE Routine 08/05/2024 9:23 PM CDT POC GLUCOSE Routine 08/05/2024 5:19 PM CDT POC GLUCOSE Routine 08/05/2024 12:24 PM CDT POC GLUCOSE Routine 08/05/2024 8:31 AM CDT BASIC METABOLIC PANEL Routine 08/05/2024 2:09 AM CDT CBC WITH DIFFERENTIAL Routine 08/05/2024 2:09 AM CDT POC GLUCOSE Routine 08/04/2024 10:01 PM CDT POC GLUCOSE Routine 08/04/2024 5:45 PM CDT POC GLUCOSE Routine 08/04/2024 8:21 AM CDT BASIC METABOLIC PANEL Routine 08/04/2024 12:56 AM CDT CBC WITH DIFFERENTIAL Routine 08/04/2024 12:56 AM CDT POC GLUCOSE Routine 08/03/2024 5:11 PM CDT ECHOCARDIOGRAM W/ CONTRAST AGENT Routine 08/03/2024 2:21 PM CDT POC GLUCOSE Routine 08/03/2024 1:[address] CHEST W CONTRAST Routine 08/03/2024 1 0:59 AM CDT POC GLUCOSE Routine 08/03/2024 7:57 AM CDT BASIC METABOLIC PANEL Routine 08/03/2024 12:52 AM CDT CBC WITH DIFFERENTIAL Routine 08/03/2024 12:52 AM CDT POC GLUCOSE Routine 08/02/2024 11:58 PM CDT POC GLUCOSE Routine 08/02/2024 9:24 AM CDT XR CHEST PA OR AP 1 VW Routine 6:31 AM CDT MAGNESIUM LEVEL Routine 08/02/2024 12:28 AM CDT BASIC METABOLIC PANEL Routine 08/02/2024 12:28 AM CDT CBC WITH DIFFERENTIAL Routine 08/02/2024 12:28 AM CDT POC GLUCOSE Routine 08/01/2024 5:28 PM CDT CBC WITH DIFFERENTIAL Routine 08/01/2024 10:06 AM CDT POC GLUCOSE Routine 08/01/2024 8:47 AM CDT XR CHEST PA OR AP 1 VW Routine 8:38 AM CDT BASIC METABOLIC PANEL Routine 08/01/2024 3:36 AM CDT POC GLUCOSE Routine 07/31/2024 8:[address] GUIDED NEEDLE PLACEMENT Routine 07/31/2024 1:46 PM CDT CYTOLOGY, NON GYNE Pathology 07/31/2024 1: 46 PM CDT PH, BODY FLUID Routine 07/31/2024 1:46 PM CDT PROTEIN, BODY FLUID Routine 07/31/2024 1 :46 PM CDT LACTATE DEHYDROGENASE, BODY FLUID Routine 07/31/2024 1:46 PM CDT CELL COUNT WITH DIFFERENTIAL, BODY FLUID Routine 07/31/2024 1:46 PM CDT FUNGUS CULTURE, OTHER Routine 07/31/2024 1:46 PM CDT FUNGUS STAIN Routine 07/31/2024 1:46 PM CDT ANAEROBIC/AEROBIC CULTURE W GRAM STAIN Routine 07/31/2024 1:46 PM CDT POC GLUCOSE Routine 07/31/2024 12:19 PM CDT POC GLUCOSE Routine 07/31/2024 8:23 AM CDT BASIC METABOLIC PANEL Routine 07/31/2024 1:57 AM CDT CBC WITH DIFFERENTIAL Routine 07/31/2024 1:57 AM CDT POC GLUCOSE Routine 07/30/2024 7:49 PM CDT POC GLUCOSE Routine 07/30/2024 12:05 PM CDT POC GLUCOSE Routine 07/30/2024 8:47 AM CDT EKG 12-LEAD Stat 07/30/2024 6:37 AM CDT PHOSPHORUS Routine 07/30/2024 5:29 AM CDT MAGNESIUM LEVEL Routine 07/30/2024 5:29 AM CDT BASIC METABOLIC PANEL Routine 07/30/2024 5:29 AM CDT CBC WITH DIFFERENTIAL Routine 07/30/2024 5:29 AM CDT POC GLUCOSE Routine 07/29/2024 9:31 PM CDT HEMOGLOBIN AND HEMATOCRIT Routine 07/29/2024 8:18 PM CDT TRANSFUSE PACKED RED BLOOD CELLS Routine 07/29/2024 5:27 PM CDT POC GLUCOSE Routine 07/29/2024 4:16 PM CDT VERIFICATION BLOOD GROUP Stat 07/29/2024 3:17 PM CDT Encounter for blood typing TYPE AND SCREEN Routine 07/29/2024 3:04 PM CDT PREPARE RED BLOOD CELLS Routine 07/29/2024 2:43 PM CDT LACTIC ACID Stat 07/29/2024 1:40 PM CDT HEMOGLOBIN A1C Routine 07/29/2024 1:40 PM CDT CBC WITHOUT DIFFERENTIAL Routine 07/29/2024 1:40 PM CDT XR CHEST PA OR AP 1 VW Routine 1:08 PM CDT BASIC METABOLIC PANEL Routine 07/29/2024 12:44 PM CDT POC GLUCOSE Routine 07/29/2024 12:04 PM CDT TELEMETRY REPORT 07/27/2024 4:19 PM CDT DIFFERENTIAL, MANUAL Routine 07/26/2024 1:57 AM CDT CBC WITH DIFFERENTIAL Routine 07/26/2024 1:57 AM CDT BASIC METABOLIC PANEL Routine 07/26/2024 1:57 AM CDT BASIC METABOLIC PANEL Routine 07/25/2024 3:54 AM CDT CBC WITH DIFFERENTIAL Routine 07/25/2024 3:54 AM CDT EKG 12-LEAD Stat 07/24/2024 1:52 PM CDT XR CHEST PA OR AP 1 VW Routine 12:53 PM CDT XR CHEST PA OR AP 1 VW Routine 8:14 AM CDT MAMMO DIAGNOSTIC UNI LEFT W OR WO CAD Routine 02/13/2024 2:08 PM APN from Last 3 Months or Most Recently Relevant to Health Maintenance Results * TELEMETRY REPORT (08/10/2024 4:31 PM CDT) Only the most recent of2 resultswithin the time period is included. Provider Scanning ECG ORDERABLES Final Result * (ABNORMAL) POC GLUCOSE (08/09/2024 8:36 AM CDT) Only the most recent of35 resultswithin the time period is included. Pathologist [facility] GLUCOSE POC 109(H) 74 - 99 mg/dL 08/09/2024 8:36 AM CDT [facility] SPECIMEN SOURCE, GLUCOSE POC Whole Blood 08/09/2024 8:36 AM CDT [facility] Blood, whole 08/09/2024 8:36 AM CDT 08/09/2024 9:46 AM CDT Isabel Hopkins MD POINT OF CARE TESTING Final Resu lt [facility] [employer] [facility] CLIA# [id number] [address] [facility] [address] [place] [address] * EKG 12-LEAD (08/09/2024 1:06 AM CDT) Only the most recent of3 resultswithin the time period is included. 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1950 Requested By: MENDEL BANKS Order Number: [id number] Reading MD: Ashish Thomas Measurements Intervals [place] Rate: 88 P: 43 MT: 119 QRS: -22 QRSD: 138 T: 102 QT: 401 QTc: 486 Interpretive Statements Sinus rhythm Atrial premature complexes Borderline short MT interval Nonspecific intraventricular conduction delay Consider anterior infarct Nonspecific T abnormalities, lateral leads Electronically Signed On 08-09-2024 8:59:06 CDT by Ashish Thomas Procedure Note Ashish Thomas MD - 08/09/2024 [facility] [address] [place] [address] Test Date: 2024-08-09 Pat Name: ORALIA GARSIA Department: 37 Room: 2401 1 Gender: Female 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1950 Requested By: MENDEL BANKS Order Number: [id number] Reading : Ashish Thomas Measurements Intervals [place] Rate: 88 P: 43 MT: 119 QRS: -22 QRSD: 138 T: 102 QT: 401 QTc: 486 Interpretive Statements Sinus rhythm Atrial premature complexes Borderline short MT interval Nonspecific intraventricular conduction delay Consider anterior infarct Nonspecific T abnormalities, lateral leads Electronically Signed On 08-09-2024 8:59:06 CDT by Ashish Thomas us Gely Howard NP ECG ORDERABLES Final Re sult INTERFACE SYSTEM Refer to clinic/hospital department * (ABNORMAL) CBC WITH DIFFERENTIAL (08/08/2024 2:13 AM CDT) Only the most recent of12 resultswithin the time period is included. Pathologist [facility] WBC 7.8 4.0 - 9.8 K/uL 08/08/2024 2:52 AM CDT [facility] RBC 2.69(L) 3.90 - 4.90 M/uL 08/08/2024 2:52 AM CDT [facility] - . [facility] HEMOGLOBIN 8.5(L) 11.8 - 14.8 g/dL 08/08/2024 2:52 AM CDT [facility] - [facility] HEMATOCRIT 27.3(L) 35.5 - 44.0 % 08/08/2024 2:52 AM CDT [facility] MCV 101.5(H) 82.0 - 99.0 fL 08/08/2024 2:52 AM CDT [facility] - . [facility] MCH 31.6 27.2 - 32.6 pg 08/08/2024 2:52 AM CDT [facility] - . [facility] MCHC 31.1(L) 31.5 - 35.5 g/dL 08/08/2024 2:52 AM CDT [facility] - . [facility] RDW 15.8(H) 11.5 - 14.5 % 08/08/2024 2:52 AM CDT [facility] - . [facility] RDW-STDEV 58.4(H) 37.1 - 48.7 fL 08/08/2024 2:52 AM CDT [facility] - . [facility] PLATELETS 460(H) 140 - 350 K/uL 08/08/2024 2:52 AM CDT [facility] - . [facility] MPV 9.6 9.3 - 12.4 fL 08/08/2024 2:52 AM CDT [facility] NEUTROPHILS 57 % 08/08/2024 2:52 AM CDT [facility] LYMPHOCYTES 26 % 08/08/2024 2:52 AM CDT [facility] MONOCYTES 14 % 08/08/2024 2:52 AM CDT [facility] EOSINOPHILS 3 % 08/08/2024 2:52 AM CDT [facility] BASOPHILS 1 % 08/08/2024 2:52 AM CDT [facility] IMMATURE GRANULOCYTES 1 % 08/08/2024 2:52 AM CDT [facility] - [facility] Comment:IG (Immature Granulo cyte) count includes Metamyelocytes, Myelocytes, and Promyelocytes NEUTROPHIL ABSOLUTE 4.39 1.90 - 7.00 K/uL 08/08/2024 2:52 AM CDT [facility] LYMPHOCYTE ABSOLUTE 1.99 0.70 - 4.50 K/uL 08/08/2024 2:52 AM CDT [facility] MONOCYTE ABSOLUTE 1.05 0.10 - 1.30 K/uL 08/08/2024 2:52 AM CDT [facility] EOSINOPHIL ABSOLUTE 0.25 0.00 - 0.70 K/uL 08/08/2024 2:52 AM CDT [facility] BASOPHILS ABSOLUTE 0.05 0.00 - 0.20 K/uL 08/08/2024 2:52 AM CDT [facility] - [facility] IMMATURE GRANULOCYTES ABSOLUTE 0.05(H) 0.00 - 0.03 K/uL 08/08/2024 2:52 AM T [facility] Blood Venipuncture / Unknown 08/08/2024 2:13 AM CDT 08/08/2024 2:34 AM CDT Sudheer Frey MD HEMATOLOGY ORDERABLES Final R esult [facility]# [id number] [address] [facility] [place] [address] * (ABNORMAL) BASIC METABOLIC PANEL (08/08/2024 2:13 AM CDT) Only the most recent of13 resultswithin the time period is included. SODIUM 135(L) 136 - 145 mmol/L 08/08/2024 3:22 AM CDT [facility] - [facility] POTASSIUM 3.5 3.5 - 5.0 mmol/L 08/08/2024 3:22 AM CDT [facility] - . [facility] CHLORIDE 97(L) 98 - 107 mmol/L 08/08/2024 3:22 AM CDT [facility] CO2 30(H) 22 - 29 mmol/L 08/08/2024 3:22 AM CDT [facility] CALCIUM 8.3(L) 8.6 - 10.2 mg/dL 08/08/2024 3:22 AM T [facility] BUN 4(L) 8 - 23 mg/dL 08/08/2024 3:22 AM T [facility] CREATININE 0.52 0.51 - 0.95 mg/dL 08/08/2024 3:22 AM [facility] Comment:The GFR result is no t clinically significant on patients <18 or >70 years of age. GLUCOSE 94 74 - 99 mg/dL 08/08/2024 3:22 AM [facility] GFR >60 mL/min/1.7 3 sq meter 08/08/2024 3:22 AM [facility] Comment:eGFR calculated with 2020 CKD-EPI equation. Vegetarian diet, extremely high or low muscle mass, and may affect results. Cystatin C with Glomerular Filtration Rate is a suitable alternative for these patients. ANION GAP 8 8 - 16 mmol/L 08/08/2024 3:22 AM T [facility] Blood Venipuncture / Unknown 08/08/2024 2:13 AM CDT 08/08/2024 2:35 AM CDT Sudheer Frey MD CHEMISTRY ORDERABLES Final Re sult [facility]# [id number] [address] [place] [address] * XR CHEST PA OR AP 1 VW (08/06/2024 2:48 PM CDT) Only the most recent of7 resultswithin the time period is included. Anatomical Region Laterality Modality Chest Computed Radiogr aphy 08/06/2024 2:48 PM CDT Impressions 08/06/2024 3:52 PM CDT IMPRESSION: Interval removal of the right chest catheter, without definite pneumothorax. Other findings are stable. DICTATION LOCATION: Location 9 - [facility] Narrative 08/06/2024 3:52 PM CDT AP VIEW OF THE CHEST DATE: 08/06/2024 2:48 PM HISTORY: Pleural effusion COMPARISON: 08/06/2024 FINDINGS: The right chest catheter has been removed. No pneumothorax is appreciated. Mild left basilar opacities are not seen immediately change. There may be a tiny left pleural effusion, stable. The cardiomediastinal silhouette is unchanged. Right basilar calcified granuloma again noted. Procedure Note Jodi Porter MD - 08/06/2024 AP VIEW OF THE CHEST DATE: 08/06/2024 2:48 PM HISTORY: Pleural effusion COMPARISON: 08/06/2024 FINDINGS: The right chest catheter has been removed. No pneumothorax is appreciated. Mild left basilar opacities are not seen immediately change. There may be a tiny left pleural effusion, stable. The cardiomediastinal silhouette is unchanged. Right basilar calcified granuloma again noted. IMPRESSION: Interval removal of the right chest catheter, without definite pneumothorax. Other findings are stable. DICTATION LOCATION: Location [address] [place] [address] us Lucila Solis NP DIAGNOSTIC IMAGING ORDERABL ES Final Result * ECHOCARDIOGRAM W/ CONTRAST AGENT (08/03/2024 2:21 PM CDT) EJECTION FRACTION 35 INTERFACE SYSTEM 08/03/2024 12:2 7 PM CDT Narrative INTERFACE SYSTEM - 08/03/2024 3:57 PM CDT [address] [address] [email or web address] Echocardiogram Patient: Oralia Garsia Study ID: [id number] Gender: F : 1950 Age: 73 Race: CHARITY Height 165.1cm Study Date: 08/03/2024 Weight: 61.3kg Access. 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 Wall thickness was increased in a pattern of mild LVH. Global systolic function is moderately reduced. The estimated ejection fraction is 35-40%. For Epic reporting: the left ventricular ejection fraction is 35% . Global hypokinesis. - Mitral valve: Mild regurgitation. - Left atrium: The atrium is normal in size. - Right ventricle: The cavity size is normal. Systolic function is normal. - Tricuspid valve: Mild regurgitation. - Pulmonary arteries: The peak systolic pressure is 46mm Hg. - Technically limited study. Cardiac Anatomy: LEFT VENTRICLE: The cavity size was dilated. Wall thickness was increased in a pattern of mild LVH. Global systolic function is moderately reduced. The estimated ejection fraction is 35-40%. For Epic reporting: the left ventricular ejection fraction is 35% . AORTIC VALVE: Structurally normal valve. . No significant regurgitation. The mean systolic gradient is 3mm Hg. The peak systolic gradient is 7mm Hg. The LVOT to aortic valve VTI ratio is 0.8. The valve area is 2.5cm^2. The ratio of LVOT to aortic valve peak velocity is 0.8. AORTA: Aortic root: The root is normal-sized. MITRAL VALVE: Structurally normal valve. Mild regurgitation. The mean diastolic gradient is 3mm Hg. The peak diastolic gradient is 5mm Hg. LEFT ATRIUM: The atrium is normal in size. RIGHT VENTRICLE: The cavity size is normal. Systolic function is normal. PULMONIC VALVE: Structurally normal valve. No significant regurgitation. TRICUSPID VALVE: Structurally normal valve. Mild regurgitation. RIGHT ATRIUM: The atrium was normal in size. SYSTEMIC VEINS: Inferior vena cava: The IVC is normal-sized. PERICARDIUM: There is no pericardial effusion. Measurements Left ventricle Value Ref IVS, ED, LAX (H) 1.2 cm 0.6 - 0.9 OLE, LAX (L) 3.7 cm 3.8 - 5.2 OLE/bsa, LAX (L) 2.2 cm/m^2 2.3 - 3.1 OLE, LAX chord (H) 5.5 cm 3.8 - 5.2 ESD, LAX chord (H) 3.7 cm 2.2 - 3.5 OLE/bsa, LAX chord (H) 3.3 cm/m^2 2.3 - 3.1 ESD/bsa, LAX chord (H) 2.2 cm/m^2 1.3 - 2.1 FS, LAX chord (N) 32 % 27 - 45 IVS, ED (H) 1.2 cm 0.6 - 0.9 PW, ED (H) 1.0 cm 0.6 - 0.9 EDV, 2-p (H) 212 ml 46 - 106 ESV, 2-p (H) 114 ml 14 - 42 EF, 2-p (L) 46 % 54 - 74 SV, 2-p 98 ml --------- SV/bsa, 2-p 58.7 ml/m^2 --------- E', lat sandra, TDI (L) 6.0 cm/sec >=10.0 E/e', lat sandra, TDI (N) 9 <=13 E', med sandra, TDI (L) 6.2 cm/sec >=7.0 E/e', med sandra, TDI 8 --------- E', avg, TDI 6.1 cm/sec --------- E/e', avg, TDI (N) 8 <=14 LVOT Value Ref Diam, S 2.0 cm --------- Area 3.1 cm^2 --------- Peak jihan, S 1.03 m/sec --------- VTI, S 17.7 cm --------- Right ventricle Value Ref OLE minor ax, A4C base (N) 4.1 cm 2.5 - 4.1 OLE minor ax, A4C mid (N) 3.3 cm 1.9 - 3.5 OLE major ax, A4C (N) 7.5 cm 5.9 - 8.3 TAPSE, MM (N) 1.7 cm >=1.7 Pressure, S 50 mm Hg --------- S' lateral (N) 12.7 cm/sec >=9.5 Left atrium Value Ref AP dim, ES (N) 3.2 cm 2.7 - 3.8 AP dim index, ES (N) 1.9 cm/m^2 1.5 - 2.3 SI dim, A4C 4.9 cm --------- Area ES, A4C (N) 13 cm^2 <=20 Area/bsa ES, A4C 7.78 cm^2/m^2 --------- SI dim, A2C 3.7 cm --------- SI dim, shorter 3.7 cm --------- Vol, ES, 1-p A2C (N) 24 ml 22 - 52 Vol/bsa, ES, 1-p A2C (N) 14 ml/m^2 13 - 40 LA/Ao root ratio 0.91 --------- Right atrium Value Ref SI dim, ES, A4C (N) 4.8 cm 3.4 - 5.3 SI dim/bsa, ES, A4C (N) 2.9 cm/m^2 1.9 - 3.1 Area, ES, A4C (N) 12 cm^2 10 - 18 Vol, ES, 1-p A4C 25 ml --------- Vol/bsa, ES, 1-p A4C (N) 15 ml/m^2 9 - 33 Aortic valve Value Ref Peak v, S 1.3 m/sec --------- Mean v, S 0.85 m/sec --------- VTI, S 22.2 cm --------- Mean grad, S 3 mm Hg --------- Peak grad, S 7 mm Hg --------- LVOT/AV, VTI ratio 0.8 --------- JEFE, VTI 2.5 cm^2 --------- JEFE/bsa, VTI 1.5 cm^2/m^2 --------- LVOT/AV, Vpeak ratio 0.8 --------- JEFE, Vmax 2.5 cm^2 --------- JEFE/bsa, Vmax 1.51 cm^2/m^2 --------- Mitral valve Value Ref Mean v, D 0.73 m/sec --------- Peak E 0.51 m/sec --------- Peak A 0.78 m/sec --------- Decel time 132 ms --------- Mean grad, D 3 mm Hg --------- Peak grad, D 5 mm Hg --------- Peak E/A ratio 0.7 --------- A-VTI 17.4 cm --------- Pulmonic valve Value Ref Peak v, S 0.85 m/sec --------- Peak grad, S 3 mm Hg --------- Tricuspid valve Value Ref TR peak v (H) 3.2 m/sec <=2.8 Peak RV-RA grad, S 40 mm Hg --------- Aortic root Value Ref Root diam, 3.5 cm --------- Ascending aorta Value Ref AAo AP diam, S 3.7 cm --------- AAo AP diam/bsa, S 2.2 cm/m^2 --------- Pulmonary artery Value Ref Pressure, S 46 mm Hg --------- Systemic veins Value Ref Estimated RA pressure 10 mm Hg --------- Legend: (L) and (H) maria esther values outside specified reference range. (N) issa values inside specified reference range. Procedure data: Procedure information: A transthoracic echocardiogram was performed. Scanning was performed from the parasternal, apical, and subcostal acoustic windows. Intravenous contrast (Definity) was administered. Transthoracic echocardiogram. Complete 2D, complete spectral Doppler, and color Doppler. Birthdate: Patient birthdate: 1950. Age: Patient is 73year(s) old. Sex: gender: female. Height: 165.1cm. 65in. Weight: 61.3kg. 135.2lb. Body mass index: 22.5kg/m^2. Body surface area: 1.67m^2. Study date: Study date: 08/03/2024. Study time: 12:27 PM. Prepared and Electronically Authenticated Solomon Sanderson [id number] Procedure Note Solomon Sanderson MD - 08/03/[address] [place] [address] [email or web address] Transthoracic Echocardiogram Patient: Oralia Garsia Study ID: [id number] Gender: F : 1950 Age: 73 Race: CHARITY Height 165.1cm Study Date: 08/03/2024 Weight: 61.3kg Access. 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 Wall thickness wasincreased in a pattern of mild LVH. Global systolic function is moderately reduced.The estimated ejection fraction is 35-40%. For Epic reporting: the left ventricular ejection fraction is 35% . Global hypokinesis. - Mitral valve: Mild regurgitation. - Left atrium: The atrium is normal in size. - Right ventricle: The cavity size is normal. Systolic function isnormal. - Tricuspid valve: Mild regurgitation. - Pulmonary arteries: The peak systolic pressure is 46mm Hg. - Technically limited study. Cardiac Anatomy: LEFT VENTRICLE: The cavity size was dilated. Wall thickness was increasedin a pattern of mild LVH. Global systolic function is moderately reduced.The estimated ejection fraction is 35-40%. For Epic reporting: the left ventricular ejection fraction is 35% . AORTIC VALVE: Structurally normal valve. . No significantregurgitation. The mean systolic gradient is 3mm Hg. The peak systolic gradient is 7mmHg. The LVOT to aortic valve VTI ratio is 0.8. The valve area is 2.5cm^2.The ratio of LVOT to aortic valve peak velocity is 0.8. AORTA: Aortic root: The root is normal-sized. MITRAL VALVE: Structurally normal valve. Mild regurgitation. Themean diastolic gradient is 3mm Hg. The peak diastolic gradient is 5mm Hg. LEFT ATRIUM: The atrium is normal in size. RIGHT VENTRICLE: The cavity size is normal. Systolic function isnormal. PULMONIC VALVE: Structurally normal valve. No significantregurgitation. TRICUSPID VALVE: Structurally normal valve. Mild regurgitation. RIGHT ATRIUM: The atrium was normal in size. SYSTEMIC VEINS: Inferior vena cava: The IVC is normal-sized. PERICARDIUM: There is no pericardial effusion. Measurements Left ventricle Value Ref IVS, ED, LAX (H) 1.2 cm 0.6 - 0.9 OLE, LAX (L) 3.7 cm 3.8 - 5.2 OLE/bsa, LAX (L) 2.2 cm/m^2 2.3 - 3.1 OLE, LAX chord (H) 5.5 cm 3.8 - 5.2 ESD, LAX chord (H) 3.7 cm 2.2 - 3.5 OLE/bsa, LAX chord (H) 3.3 cm/m^2 2.3 - 3.1 ESD/bsa, LAX chord (H) 2.2 cm/m^2 1.3 - 2.1 FS, LAX chord (N) 32 % 27 - 45 IVS, ED (H) 1.2 cm 0.6 - 0.9 PW, ED (H) 1.0 cm 0.6 - 0.9 EDV, 2-p (H) 212 ml 46 - 106 ESV, 2-p (H) 114 ml 14 - 42 EF, 2-p (L) 46 % 54 - 74 SV, 2-p 98 ml --------- SV/bsa, 2-p 58.7 ml/m^2 --------- E', lat sandra, TDI (L) 6.0 cm/sec >=10.0 E/e', lat sandra, TDI (N) 9 <=13 E', med sandra, TDI (L) 6.2 cm/sec >=7.0 E/e', med sandra, TDI 8 --------- E', avg, TDI 6.1 cm/sec --------- E/e', avg, TDI (N) 8 <=14 LVOT Value Ref Diam, S 2.0 cm --------- Area 3.1 cm^2 --------- Peak jihan, S 1.03 m/sec --------- VTI, S 17.7 cm --------- Right ventricle Value Ref OLE minor ax, A4C base (N) 4.1 cm 2.5 - 4.1 OLE minor ax, A4C mid (N) 3.3 cm 1.9 - 3.5 OLE major ax, A4C (N) 7.5 cm 5.9 - 8.3 TAPSE, MM (N) 1.7 cm >=1.7 Pressure, S 50 mm Hg --------- S' lateral (N) 12.7 cm/sec >=9.5 Left atrium Value Ref AP dim, ES (N) 3.2 cm 2.7 - 3.8 AP dim index, ES (N) 1.9 cm/m^2 1.5 - 2.3 SI dim, A4C 4.9 cm --------- Area ES, A4C (N) 13 cm^2 <=20 Area/bsa ES, A4C 7.78 cm^2/m^2 --------- SI dim, A2C 3.7 cm --------- SI dim, shorter 3.7 cm --------- Vol, ES, 1-p A2C (N) 24 ml 22 - 52 Vol/bsa, ES, 1-p A2C (N) 14 ml/m^2 13 - 40 LA/Ao root ratio 0.91 --------- Right atrium Value Ref SI dim, ES, A4C (N) 4.8 cm 3.4 - 5.3 SI dim/bsa, ES, A4C (N) 2.9 cm/m^2 1.9 - 3.1 Area, ES, A4C (N) 12 cm^2 10 - 18 Vol, ES, 1-p A4C 25 ml --------- Vol/bsa, ES, 1-p A4C (N) 15 ml/m^2 9 - 33 Aortic valve Value Ref Peak v, S 1.3 m/sec --------- Mean v, S 0.85 m/sec --------- VTI, S 22.2 cm --------- Mean grad, S 3 mm Hg --------- Peak grad, S 7 mm Hg --------- LVOT/AV, VTI ratio 0.8 --------- JEFE, VTI 2.5 cm^2 --------- JEFE/bsa, VTI 1.5 cm^2/m^2 --------- LVOT/AV, Vpeak ratio 0.8 --------- JEFE, Vmax 2.5 cm^2 --------- JEFE/bsa, Vmax 1.51 cm^2/m^2 --------- Mitral valve Value Ref Mean v, D 0.73 m/sec --------- Peak E 0.51 m/sec --------- Peak A 0.78 m/sec --------- Decel time 132 ms --------- Mean grad, D 3 mm Hg --------- Peak grad, D 5 mm Hg --------- Peak E/A ratio 0.7 --------- A-VTI 17.4 cm --------- Pulmonic valve Value Ref Peak v, S 0.85 m/sec --------- Peak grad, S 3 mm Hg --------- Tricuspid valve Value Ref TR peak v (H) 3.2 m/sec <=2.8 Peak RV-RA grad, S 40 mm Hg --------- Aortic root Value Ref Root diam, 3.5 cm --------- Ascending aorta Value Ref AAo AP diam, S 3.7 cm --------- AAo AP diam/bsa, S 2.2 cm/m^2 --------- Pulmonary artery Value Ref Pressure, S 46 mm Hg --------- Systemic veins Value Ref Estimated RA pressure 10 mm Hg --------- Legend: (L) and (H) maria esther values outside specified reference range. (N) issa values inside specified reference range. Procedure data: Procedure information: A transthoracic echocardiogram was performed.Scanning was performed from the parasternal, apical, and subcostal acousticwindows. Intravenous contrast (Definity) was administered. Transthoracic echocardiogram. Complete 2D, complete spectral Doppler, and colorDoppler. Birthdate: Patient birthdate: 1950. Age: Patient is 73year(s)old. Sex: gender: female. Height: 165.1cm. 65in. Weight: 61.3kg. 135.2lb. Body mass index: 22.5kg/m^2. Body surface area: 1.67m^2.Study date: Study date: 08/03/2024. Study time: 12:27 PM. Prepared and Electronically Authenticated Solomon Sanderson [id number] us Ximena Alvarado MD US ORDERABLES Final R esult INTERFACE SYSTEM Refer to clinic/hospital department * CT CHEST W CONTRAST (08/03/2024 10:59 AM CDT) Anatomical Region Laterality Modality Chest Computed Tomogra phy 08/03/2024 10:4 9 AM CDT Impressions 08/03/2024 12:37 PM CDT IMPRESSION: 1. Decreased moderate right pleural effusion with small pneumothorax component. Mild pleural thickening and enhancement raises concern for superimposed infection/empyema. 2. Pigtail catheter is not entirely looped within the right hemithorax. Proximal most side holes of the catheter are external to the chest wall. 3. Small regional area of reduced parenchymal enhancement within the atelectatic basilar right lower lobe, decreased in size from the prior CT and likely represents evolving infection. Radiographic follow-up to resolution is recommended. 4. Stable indeterminate 9 mm noncalcified nodule anterior left upper lobe. DICTATION LOCATION: Location [address] [place] [address] 08/03/2024 12:37 PM CDT EXAMINATION: CT CHEST W CONTRAST DATE: 08/03/2024 10:59 AM HISTORY: Pneumonia, complication suspected, xray done, Empyema Encounter for blood typing; Panlobular emphysema (CMS/HCC); History of tobacco use TECHNIQUE: Computed tomography of the chest was performed following the uneventful administration of intravenous contrast (IOPAMIDOL 61 % INTRAVENOUS SOLUTION (MULTI-DOSE BULK PACK) Given:80 mL) according to standard protocol. The examination was performed with the adjustment of mA according to the patient size and/or the use of Iterative Reconstruction Technique. FINDINGS: Comparison made with the prior exam from 07/29/2024 and 07/18/2024. Lines/tubes: Pleural catheter tip terminates in the posterior mid right hemithorax. Pigtail catheter is not entirely looped within the right hemithorax. Proximal most side holes of the catheter are visualized external to the chest wall. Heart and mediastinum: The heart is normal in size without pericardial effusion. Heavy multivessel coronary calcifications are present. The ascending aorta and main pulmonary artery are nondilated. Stable enlarged 1.6 cm right hilar lymph node. Lungs and Airways: The central airways are patent. There is compressive atelectasis in the posterior lungs bilaterally. Small regional area of reduced parenchymal enhancement within the atelectatic basilar right lower lobe, has decreased in size from the prior CT and likely represents evolving pneumonia. Confluent apical predominant centrilobular and paraseptal emphysema. Mild dependent atelectasis in the posterior upper lobes bilaterally. Stable 9 mm solid noncalcified nodule in the anterior left upper lobe (series 304, image 172). A 5 mm groundglass nodule in the apical left upper lobe has decreased in density compared to the prior and likely an infectious/inflammatory nodule. No new or enlarging pulmonary nodule identified. Pleura: Moderate right pleural effusion with associated pleural thickening and enhancement. Small pneumothorax component. Moderate layering left pleural effusion without abnormal pleural thickening or pneumothorax. Lower neck and soft tissues: The imaged thyroid gland appears normal. No axillary or subpectoral lymphadenopathy is identified. Abdomen: Imaged portions of the upper abdomen are within normal limits. Mild anasarca. Bones: Chronic bilateral rib fracture deformities. No suspicious lytic or blastic lesions are seen. INCIDENTAL FINDINGS: None. Procedure Note Kaiden Nielson, DO - 08/03/2024 EXAMINATION: CT CHEST W CONTRAST DATE: 08/03/2024 10:59 AM HISTORY: Pneumonia, complication suspected, xray done, Empyema Encounter for blood typing; Panlobular emphysema (CMS/HCC); History of tobacco use TECHNIQUE: Computed tomography of the chest was performed following the uneventful administration of intravenous contrast (IOPAMIDOL 61 % INTRAVENOUS SOLUTION (MULTI-DOSE BULK PACK) Given:80 mL) according to standard protocol. The examination was performed with the adjustment of mA according to the patient size and/or the use of Iterative Reconstruction Technique. FINDINGS: Comparison made with the prior exam from 07/29/2024 and 07/18/2024. Lines/tubes: Pleural catheter tip terminates in the posterior mid right hemithorax. Pigtail catheter is not entirely looped within the right hemithorax. Proximal most side holes of the catheter are visualized external to the chest wall. Heart and mediastinum: The heart is normal in size without pericardial effusion. Heavy multivessel coronary calcifications are present. The ascending aorta and main pulmonary artery are nondilated. Stable enlarged 1.6 cm right hilar lymph node. Lungs and Airways: The central airways are patent. There is compressive atelectasis in the posterior lungs bilaterally. Small regional area of reduced parenchymal enhancement within the atelectatic basilar right lower lobe, has decreased in size from the prior CT and likely represents evolving pneumonia. Confluent apical predominant centrilobular and paraseptal emphysema. Mild dependent atelectasis in the posterior upper lobes bilaterally. Stable 9 mm solid noncalcified nodule in the anterior left upper lobe (series 304, image 172). A 5 mm groundglass nodule in the apical left upper lobe has decreased in density compared to the prior and likely an infectious/inflammatory nodule. No new or enlarging pulmonary nodule identified. Pleura: Moderate right pleural effusion with associated pleural thickening and enhancement. Small pneumothorax component. Moderate layering left pleural effusion without abnormal pleural thickening or pneumothorax. Lower neck and soft tissues: The imaged thyroid gland appears normal. No axillary or subpectoral lymphadenopathy is identified. Abdomen: Imaged portions of the upper abdomen are within normal limits. Mild anasarca. Bones: Chronic bilateral rib fracture deformities. No suspicious lytic or blastic lesions are seen. INCIDENTAL FINDINGS: None. IMPRESSION: 1. Decreased moderate right pleural effusion with small pneumothorax component. Mild pleural thickening and enhancement raises concern for superimposed infection/empyema. 2. Pigtail catheter is not entirely looped within the right hemithorax. Proximal most side holes of the catheter are external to the chest wall. 3. Small regional area of reduced parenchymal enhancement within the atelectatic basilar right lower lobe, decreased in size from the prior CT and likely represents evolving infection. Radiographic follow-up to resolution is recommended. 4. Stable indeterminate 9 mm noncalcified nodule anterior left upper lobe. DICTATION LOCATION: Location 1 - [facility] Marifer Garcia NP CT ORDERABLES Final Result * MAGNESIUM LEVEL (08/02/2024 12:28 AM CDT) Only the most recent of2 resultswithin the time period is included. MAGNESIUM 1.7 1.6 - 2.4 mg/dL 08/02/2024 9:20 AM CDT [facility] Blood Venipuncture / Unknown 08/02/2024 12:28 AM CDT 08/02/2024 12:46 AM CDT us Ximena Alvarado MD CHEMISTRY ORDERABLES Fi nal Result [facility]# [id number] [address] [place] [place] [address] * CT GUIDED NEEDLE PLACEMENT (07/31/2024 1:46 PM CDT) Anatomical Region Laterality Modality Computed Tomogra phy 07/31/2024 12:5 8 PM CDT Impressions 07/31/2024 4:15 PM CDT IMPRESSION: Successful CT guided right chest tube placement. DICTATION LOCATION: Location 1 - [facility] Narrative 07/31/2024 4:15 PM CDT EXAMINATION: PERCUTANEOUS RIGHT CHEST TUBE PLACEMENT WITH CT GUIDANCE DATE: 07/31/2024 1:46 PM HISTORY: 73 years-old Female with loculated right pleural effusion. ANESTHESIA: The procedure was performed with local anesthesia. PHYSICIAN(S): Stefan Rasmussen M.D. TECHNIQUE: The risks, benefits and alternatives were discussed and informed consent was obtained. Prior to beginning the procedure, [place] Protocol was performed to confirm the patient's identity and the planned procedure. Sterile barriers including hand hygiene, sterile gloves, and sterile drape were used. 2% chlorhexidine was used for cutaneous antisepsis. The patient was placed in the left lateral decubitus position. An appropriate site was selected and marked on the skin. The skin was infiltrated with 1% lidocaine. Under intermittent CT guidance, an 18-gauge needle was advanced into the right pleural space. Under intermittent CT guidance, a guidewire was advanced and coiled within the pleural space before dilating the tract. A 14-Czech catheter was then advanced over the guidewire and secured in place with a stitch. A sterile dressing was applied. A sample of the fluid was sent for culture. ESTIMATED BLOOD LOSS: 2 cc. FINDINGS: Initial images show loculated right pleural effusion. Final images show catheter within the pleural space. Cloudy yellow was drained. The patient tolerated the procedure without immediate complications. Procedure Note Stefan Rasmussen MD - 07/31/2024 EXAMINATION: PERCUTANEOUS RIGHT CHEST TUBE PLACEMENT WITH CT GUIDANCE DATE: 07/31/2024 1:46 PM HISTORY: 73 years-old Female with loculated right pleural effusion. ANESTHESIA: The procedure was performed with local anesthesia. PHYSICIAN(S): Stefan Rasmussen M.D. TECHNIQUE: The risks, benefits and alternatives were discussed and informed consent was obtained. Prior to beginning the procedure, [place] Protocol was performed to confirm the patient's identity and the planned procedure. Sterile barriers including hand hygiene, sterile gloves, and sterile drape were used. 2% chlorhexidine was used for cutaneous antisepsis. The patient was placed in the left lateral decubitus position. An appropriate site was selected and marked on the skin. The skin was infiltrated with 1% lidocaine. Under intermittent CT guidance, an 18-gauge needle was advanced into the right pleural space. Under intermittent CT guidance, a guidewire was advanced and coiled within the pleural space before dilating the tract. A 14-Czech catheter was then advanced over the guidewire and secured in place with a stitch. A sterile dressing was applied. A sample of the fluid was sent for culture. ESTIMATED BLOOD LOSS: 2 cc. FINDINGS: Initial images show loculated right pleural effusion. Final images show catheter within the pleural space. Cloudy yellow was drained. The patient tolerated the procedure without immediate complications. IMPRESSION: Successful CT guided right chest tube placement. DICTATION LOCATION: Location 1 - [facility] Stefan Rasmussen MD CT ORDERABLES Final Result * (ABNORMAL) ANAEROBIC/AEROBIC CULTURE W GRAM STAIN (07/31/2024 1:46 PM CDT) CULTURE STREPTOCOCCUS CONSTELLATUS(A) JONNY MCG/ML 08/05/2024 7:51 AM T [facility] [employer] [facility] GRAM STAIN No organisms observed 08/05/2024 7:51 AM T [facility] GRAM STAIN 3+ (Moderate) Polymorphonuclear WBC 08/05/2024 7:51 AM [facility] Body fluid (Pleura, right) Collection / Unknown 07/31/2024 1:46 PM CDT 07/31/2024 3:15 PM CDT [facility] - 08/05/2024 7:51 AM CDT Results communicated to Edita Linares PCA ([facility] TELE 2) on 08/04/2024 at 10:35 AM via Secure Chat. Acknowledgement noted. Organism Antibiotic Method Susceptibility Streptococcus constellatus BENZYLPENICILLIN JONNY MCG/ML 0.12 mcg/mL: Intermediate Streptococcus constellatus AMPICILLIN JONNY MCG/ML <=0.25 mcg/mL: Susceptible Streptococcus constellatus CEFTRIAXONE JONNY MCG/ML 1 mcg/mL: Susceptible Streptococcus constellatus VANCOMYCIN JONNY MCG/ML 0.5 mcg/mL: Susceptible Streptococcus constellatus CLINDAMYCIN JONNY MCG/ML >=1 mcg/mL: Resistant Ximena Alvarado MD MICROBIOLOGY - GENERAL ORDERABLES Final Result Performing Organization Address [facility]/ZIP Co de Phone Number [facility]# [id number] [address] [place] [address] * FUNGUS STAIN (07/31/2024 1:46 PM CDT) FUNGUS STAIN No fungal elements observed No yeast or fungal elements observed 07/31/2024 4:14 PM CDT [facility] Body fluid (Pleura, right) Collection / Unknown 07/31/2024 1:46 PM CDT 07/31/2024 3:15 PM CDT Ximena Alvarado MD MICROBIOLOGY - GENERAL ORDERABLES Final Result Performing Organization Address City/[facility]/ZIP Co de Phone Number [facility]# [id number] [address] [place] [address] * FUNGUS CULTURE, OTHER (07/31/2024 1:46 PM CDT) CULTURE No fungus isolated. 08/28/2024 8:32 AM CDT [facility] Body fluid (Pleura, right) Collection / Unknown 07/31/2024 1:46 PM CDT 07/31/2024 3:15 PM CDT Narrative [facility] - 08/28/2024 8:32 AM CDT Culture is held for a minimum of 4 weeks. Ximena Alvarado MD MICROBIOLOGY - GENERAL ORDERABLES Final Result Performing Organization Address [facility]/ZIP Co de Phone Number [facility] CLIA# [id number] [address] [place] [address] * (ABNORMAL) CELL COUNT WITH DIFFERENTIAL, BODY FLUID (07/31/2024 1:46 PM CDT) APPEARANCE, BODY FLUID Turbid 07/31/2024 6:40 PM CDT [facility] COLOR, FLD Yellow 07/31/2024 6:40 PM CDT [facility] NUCLEATED CELL, FLD 92,000(H) 1,395 - 3,734 /uL 07/31/2024 6:40 PM CDT [facility] Comment:Quantitated by dilut ion. RBC, FLD 1,822 No Ref Range Estab /uL 07/31/2024 6:40 PM CDT [facility] Comment:Quantitated by dilut ion. NEUTROPHILS, FLD 96(H) 0 - 1 % 07/31/2024 6:40 PM CDT [facility] MONOCYTE/MACRO PHAGE, FLD 4(L) 64 - 80 % 07/31/2024 6:40 PM CDT [facility] Body fluid (Pleura, right) Collection / Unknown 07/31/2024 1:46 PM CDT 07/31/2024 3:16 PM CDT Ximena Alvarado MD BODY FLUIDS AND STOOLS Final Result Performing Organization Address [facility]/State/ZIP Co de Phone Number [facility] CLIA# [id number] [address] [place] [address] * PROTEIN, BODY FLUID (07/31/2024 1:46 PM CDT) PROTEIN, FLD 2.6 g/dL 07/31/2024 4:13 PM CDT [facility] Body fluid (Pleura, right) Collection / Unknown 07/31/2024 1:46 PM CDT 07/31/2024 3:15 PM CDT [facility] - 07/31/2024 4:13 PM CDT Interpretive Criteria: Transudate: <2.0 g/dL Exudate: >2.0 g/dL The reference range and other method performance specifications are unavailable for this body fluid. Comparison of this result with the concentration in the blood, serum, or plasma is recommended. Ximena Alvarado MD BODY FLUIDS AND STOOLS Final Result Performing Organization Address [facility]/ZIP Co de Phone Number [facility]# [id number] [facility] SE[place] [address] * LACTATE DEHYDROGENASE, BODY FLUID (07/31/2024 1:46 PM CDT) Pathologist [facility] LD, FLD >1,000 U/L 07/31/2024 4:21 PM CDT [facility] Body fluid (Pleura, right) Collection / Unknown 07/31/2024 1:46 PM CDT 07/31/2024 3:15 PM CDT [facility] - 07/31/2024 4:21 PM CDT Interpretive Criteria: Transudate: < 200 U/L or Fluid/Serum Ratio < 0.6 Exudate: > 200 U/L or Fluid/Serum Ratio > 0.6 The reference range and other method performance specifications are unavailable for this body fluid. Comparison of this result with the concentration in the blood, serum or plasma is recommended. Ximena Alvarado MD BODY FLUIDS AND STOOLS Final Result Performing Organization Address [facility]/State/ZIP Co de Phone Number [facility] CLIA# [id number] [address] [place] [address] * (ABNORMAL) PH, BODY FLUID (07/31/2024 1:46 PM CDT) PH, FLD 7.13(L) 7.40 - 7.64 07/31/2024 3:46 PM CDT [facility] Body fluid (Pleura, right) Collection / Unknown 07/31/2024 1:46 PM CDT 07/31/2024 3:15 PM CDT Narrative [facility] - 07/31/2024 3:46 PM CDT Reference Range: Normal Serous Fluids (pleural,pericardial) = 7.40 - 7.64 Pleural Transudates: 7.40 - 7.50 Exudates: 7.35 - 7.45 No Reference range established for other fluid types. Pleural fluid pH < 7.30 can be seen with empyema, malignancy, rheumatoid pleurisy, SLE, tuberculosis, and esophageal rupture. A pH < 6.00 is suggestive of esophageal rupture. Ximena Alvarado MD BODY FLUIDS AND STOOLS Final Result [facility]# [id number] [address] [place] [address] * CYTOLOGY, NON GYNE (07/31/2024 1:46 PM CDT) CASE REPORT Medical Cytology Report Case: [id number] Authorizing Provider: Ximena Alvarado MD Collected: 07/31/2024 01:46 PM Ordering Location: [facility] Received: 08/01/2024 07:28 AM Telemetry 2 Pathologist: Jaimie Escobar MD Specimen: Pleural fluid, right pleural 10:56 AM CDT [facility] FINAL DIAGNOSIS Pleural fluid, right, cytologic examination: - Abundant degenerated acute inflammatory cells. - No malignant cells identified. - Cell block supports the cytologic diagnosis. - Low volume specimen. See comment. 5 10:56 AM T [facility] at 1056 CDT GROSS DESCRIPTION Received is a container labeled Oralia Garsia and right pleural fluid. It contains 6 mL of cloudy yellow fluid. One ThinPrep and 1 cell block made. One Coleman-stained cytospin slide received from Hematology. 10:56 AM T [facility] MICROSCOPIC DESCRIPTION The slides are labeled [id number] and Oralia Garsia. Microscopic examination of the ThinPrep, cytospin, and cell block preparations show degenerated inflammatory cells. Malignant cells are not identified. Serial submission of fluid may increase the diagnostic yield if there is strong clinical concern for malignancy. Of note, 6 mL of specimen were received; greater than 50 mL are preferred. 5 10:56 AM T [facility] OPERATIVE PROCEDURE Thoracentesis 10:56 AM [facility] CLINICAL INFORMATION Not specified 10:56 AM T [facility] COMMENT Special stain, immunohistochemical, and/or in situ hybridization results are interpreted with controls that demonstrate appropriate staining reactions. Note on use of immunohistochemistry reagents and in situ hybridization probes: These tests were developed and their performance characteristics determined by [facility], Department of Laboratory Medicine. It has not been cleared or approved by the U.S. Food and Drug Administration. The FDA has determined that such clearance or approval is not necessary. The test is used for clinical purposes. It should not be regarded as investigational or for research. This laboratory is certified to perform high complexity testing. Cases may have been signed out in part or completely in the following laboratories: [facility], CLIA #[id number] [address] [place] [address] [facility], CLIA #[id number] [place], [place] [address] [address]. 5 10:56 AM [facility] Body fluid PLEURAL FLUID SPECIMEN / Unknown Collection / Unknown 07/31/2024 1:46 PM CDT 08/01/2024 7:28 AM CDT Ximena Alvarado MD PATHOLOGY/CYTOLOGY ORDE RABLES Final Result [facility]# [id number] [address] [place] [address] * PHOSPHORUS (07/30/2024 5:29 AM CDT) PHOSPHORUS 3.0 2.5 - 4.5 mg/dL 07/30/2024 9:20 AM CDT [facility] Blood Venipuncture / Unknown 07/30/2024 5:29 AM CDT 07/30/2024 5:38 AM CDT Sudheer Frey MD CHEMISTRY ORDERABLES Final Re sult [facility]# [id number] [address] [place] [address] * TRANSFUSE RED BLOOD CELLS (07/29/2024 9:27 PM CDT) Ashish Grimaldo MD BLOOD TRANSFUSION ORDERAB LES Final Result * (ABNORMAL) HEMOGLOBIN AND HEMATOCRIT (07/29/2024 8:18 PM CDT) HEMOGLOBIN 8.8(L) 11.8 - 14.8 g/dL 07/29/2024 8:57 PM CDT [facility] Comment:Significant change f rom prior result, correlate clinically and redraw if necessary. HEMATOCRIT 26.9(L) 35.5 - 44.0 % 07/29/2024 8:57 PM CDT [facility] Blood Venipuncture / Unknown 07/29/2024 8:18 PM CDT 07/29/2024 8:26 PM CDT Ashish Grimaldo MD HEMATOLOGY ORDERABLES Fin al Result Performing Organization Address [facility]/ZIP Co de Phone Number [facility] - [facility] CLAL# [id number] [address] [place] [address] * VERIFICATION BLOOD GROUP (07/29/2024 3:17 PM CDT) ABO GROUP AB 07/29/2024 4:52 PM CDT [facility] -- [facility] RH (D) TYPE Positive 07/29/2024 4:52 PM CDT [facility] -- [facility] Blood Venipuncture / Unknown 07/29/2024 3:17 PM CDT 07/29/2024 3:17 PM CDT Benoit Hardy MD BLOOD BANK ORDERABLES Final Result Performing Organization Address [facility] Co de Phone Number [facility] [employer] [facility] -- [facility]# [id number] [address] [place] [address] * TYPE AND SCREEN (07/29/2024 3:04 PM CDT) ABO GROUP AB 07/29/2024 4:52 PM CDT [employer] LABORATORY SERVICES -- [facility] RH (D) TYPE Positive 07/29/2024 4:52 PM CDT [facility] -- [facility] ANTIBODY SCREEN Negative 07/29/2024 4:52 PM CDT [facility] -- [facility] Blood Venipuncture / Unknown 07/29/2024 3:04 PM CDT 07/29/2024 3:12 PM CDT Ashish Grimaldo MD BLOOD BANK ORDERABLES Sharan cameron Result - Final [facility] -- [facility] CLIA# [id number] [address] [place] [address] * PREPARE RED BLOOD CELLS (07/29/2024 2:43 PM CDT) Pathologist [facility] COMPONENT TYPE [id number] [facility] -- [facility] COMPONENT IDENTIFICATION [id number] [facility] -- [facility] UNIT ABO B [facility] -- [facility] UN[facility] RH NEG [facility] CROSSMATCH Compatible [facility] -- .[facility] COMPONENT STATUS Transfused ME [facility] LABORAT[facility] SERVICES -- [facility] COMPONENT EXPIRATION DATE/TIME [id number] [facility] -- [facility] COMPONENT CODING SYSTEM 1700 [facility] -- [facility] VOLUME, BLOOD PRODUCT 350 [facility] -- [facility] Other, specify 07/29/2024 2: 43 PM CDT Ashish Grimaldo MD LAB TRANSFUSION ORDERABLE S Edited Result - Final [facility] -- [facility] CLIA# [id number] [address] [place] [address] * LACTIC ACID (07/29/2024 1:40 PM CDT) [facility] [address] LACTIC ACID 1.1 <=2.0 mmol/L 07/29/2024 2:34 PM CDT [facility] - [facility] Blood Venipuncture / Unknown 07/29/2024 1:40 PM CDT 07/29/2024 1:51 PM CDT Sudheer Frey MD CHEMISTRY ORDERABLES Final Re sult [facility] - [facility] CLIA# [id number] [address] [place] [address] * (ABNORMAL) CBC WITHOUT DIFFERENTIAL (07/29/2024 1:40 PM CDT) [facility] [address] WBC 12.3(H) 4.0 - 9.8 K/uL 07/29/2024 2:36 PM CDT [facility] RBC 2.11(L) 3.90 - 4.90 M/uL 07/29/2024 2:36 PM CDT [facility] HEMOGLOBIN 6.8(LL) 11.8 - 14.8 g/dL 07/29/2024 2:36 PM CDT [facility] Comment:Verified by repeat a nalysis. HEMATOCRIT 21.8(L) 35.5 - 44.0 % 07/29/2024 2:36 PM CDT [facility] [employer] [facility] MCV 103.3(H) 82.0 - 99.0 fL 07/29/2024 2:36 PM CDT [facility] [employer] [facility] MCH 32.2 27.2 - 32.6 pg 07/29/2024 2:36 PM CDT [facility] MCHC 31.2(L) 31.5 - 35.5 g/dL 07/29/2024 2:36 PM CDT [facility] PLATELETS 900(H) 140 - 350 K/uL 07/29/2024 2:36 PM CDT [facility] [employer] [facility] MPV 9.3 9.3 - 12.4 fL 07/29/2024 2:36 PM CDT [facility] [employer] [facility] RDW 15.5(H) 11.5 - 14.5 % 07/29/2024 2:36 PM CDT [facility] RDW-STDEV 58.4(H) 37.1 - 48.7 fL 07/29/2024 2:36 PM CDT [facility] Blood Venipuncture / Unknown 07/29/2024 1:40 PM CDT 07/29/2024 1:50 PM CDT Sudheer Frey MD HEMATOLOGY ORDERABLES Final R esult [facility] [employer] [facility] CLIA# [id number] [address] [place] [address] * (ABNORMAL) HEMOGLOBIN A1C (07/29/2024 1:40 PM CDT) [facility] [address] HEMOGLOBIN A1C 5.7(H) <5.7 % 07/29/2024 4:02 PM CDT [facility] EST. AVG GLUCOSE, A1C 117 mg/dL 07/29/2024 4:02 PM CDT [facility] Blood Venipuncture / Unknown 07/29/2024 1:40 PM CDT 07/29/2024 1:50 PM CDT Narrative [facility] - 07/29/2024 4:02 PM CDT HGB A1C INTERPRETATION NORMAL: <5.7% PRE-DIABETES: 5.7 - 6.4% DIABETES: 6.5% OR GREATER Sudheer Frey MD CHEMISTRY ORDERABLES Final Re sult [facility] [employer] [facility] CLIA# [id number] [address] [place] [address] * MANUAL DIFFERENTIAL (07/26/2024 1:57 AM CDT) [facility] [address] PLATELET EST. Consistent w Count 07/26/2024 4:00 AM CDT [facility] ANISOCYTOSIS 1+ /hpf 07/26/2024 4:00 AM CDT [facility] POIKILOCYTES 1+ /hpf 07/26/2024 4:00 AM CDT [facility] HYPOCHROMIA 1+ /hpf 07/26/2024 4:00 AM CDT [facility] Blood Venipuncture / Unknown 07/26/2024 1:57 AM CDT 07/26/2024 2:09 AM CDT Yue Gibbons NP HEMATOLOGY ORDER OTIS COM Final Result [facility]# [id number] [address] [place] [address] * MAMMO DIAGNOSTIC UNI LEFT W OR WO CAD (02/13/2024 2:08 PM APN) Anatomical Region Laterality Modality Breast Left Mammography Suhail Luis MD MAMMO ORDERABLES Final Result from Last 3 Months or Most Recently Relevant to Health Maintenance Insurance [facility] Advance Directives For more information, please contact: [phone] * Full Code (Latest Code Status on File) Date Activated Date Inactivated Comments 07/29/2024 12:15 PM 08/09/2024 2:25 PM * Full Code Date Activated Date Inactivated Comments 07/17/2024 6:49 PM 07/26/2024 8:51 PM * Full Code Date Activated Date Inactivated Comments 06/25/2024 8:28 PM 06/29/2024 3:15 PM Care Teams Floater Operator Relationship Specialty Start Date End Date Nu Shirley MD [address] [place] [address] PCP - General Family Practice 07/18/23
--- OUTSIDE RECORDS SUMMARY | 2024-10-24 14:42 | XMS_ITS | Clinical Summary ---
Author Organization [facility] Address [address] [place] [address] Care Team Providers Care Supervisor Rough End Name Role Phone Unavailable Primary Care Provider [...]
--- OUTSIDE RECORDS SUMMARY | 2024-10-24 14:42 | XMS_ITS ---
Author Organization [facility] Address [address] [facility] [place] [address] Care Team Providers Care Product Engineering Manager Name Role Phone Nu Shirley MD Primary Care Provider Active Problems Patient Care Coordination No te [...] 09/20/2017 COPD (chronic obstructive pulmonary disease) Osteoporosis Current Treatment and Therapy Plans No current plan information found. Past Treatment and Therapy Plans No past plan information found. Lifetime Dose Tracking * Chemical Lifetime Dose Automatic Entry Manual Entr y Effective Dose 81.13 mSv 81.13 mSv 0 mSv Total DLP 3,377.75 DLP 3,377.75 DLP 0 DLP CTDIvol Max 59 mGy 59 mGy 0 mGy Resolved Problems Problem Noted Date Diagnosed Date Resolved Date Posttraumatic hematoma of left breast 11/01/2017 12/01/2019 Abnormal mammogram of left breast 09/20/2017 04/20/2018 Microcalcification of left b reast on mammogram 09/20/2017 04/20/2018
--- OUTSIDE RECORDS SUMMARY | 2024-10-24 14:42 | XMS_ITS | Clinical Summary ---
Author Organization [facility] Address [address] [place] [address] Phone Care Team Providers Care Real Estate Internship Name Role Phone Stacey Wyatt MD Primary [...] Take by mouth 2 times daily. Active [place]-3 Fatty Acids (OMEGA-3 FISH OIL PO) Take [...] 3:40 PM CDT Height 165.1 cm (5' 5) 11/24/2017 3:40 PM CDT Body Mass Index 27.52 11/24/2017 3:40 PM CDT Plan of Treatment Health Maintenance Due Date Last Done Comments Hepatitis C Virus (HCV) Screening 1950 Mammogram 1962 Cologuard 1997 Colonoscopy 1997 Colorectal Cancer Screening 1997 Immunochemical Fecal Occult Blood 1997 Zoster Immunization (1 of 2) 2002 Pneumococcal Immunization (5 0+ years) (2 of 2 - PCV) 07/05/2014 07/05/2013 SARS-COV-2 Immunization (2023- season) 2023 12/14/2020, 05/22/2020, 05/01/2020 Influenza Immunization (#1) 2024 Respiratory Syncytial Virus (RSV) Immunization (Adult) (1 - 1-dose 75+ series) 10/07/2027 DTaP/Tdap/Td Immunization Discontinued 03/28/2006 TdaP Immunization Completed 03/28/2006 Pneumococcal Immunization Combined Discontinued 07/05/2013 Hepatitis B Immunization Aged Out No longer eligible based on patient's age to complete this topic Human Papillomavirus (HPV) Immunization Aged Out No longer eligible based on patient's age to complete this topic Meningococcal Immunization (ACWY) Aged Out No longer eligible based on patient's age to complete this topic Rotavirus Immunization Aged Out No lo nger eligible based on patient's age to complete this topic Insurance MEDICARE [facility]CIAL GENERIC Care Teams Real Estate Internship Relationship Specialty Start Date End Date Stacey Wyatt MD [address] [place] [address] PCP - General Family Medicine 11/24/17
[2024-10-24 14:49] LABS: Hematocrit 31.0 % (37.0-47.0); Hemoglobin 9.8 g/dL (12.0-15.0); Immature Granulocyte Percent A 0.3 % (0-0.5); Lymphocytes Absolute Auto 1.71 K/mm3 (0.9-3.2); Mean Corpuscular HGB Conc 31.6 g/dl (32-36); Mean Corpuscular Hemoglobin 28.3 pg (26-34); Mean Corpuscular Volume 89.6 fl (80-100); Nucleated Red Blood Cells Absolute Auto 0.000 K/mm3 (0.0-0.012); Nucleated Red Blood Cells Perc 0.0 % (0.0-0.2); Platelet Count Result 495 k/mm3 (150-375); Red Blood Count 3.46 M/mm3 (4.2-5.4); White Blood Count 7.1 K/mm3 (4.5-10.0)
[2024-10-24 15:02] LABS: Hemoglobin A1C 5.1 % (<5.7)
--- OUTSIDE RECORDS SUMMARY | 2024-10-24 15:02 | XMS_ITS | Clinical Summary ---
Author Organization [facility] Address [address] [place] [address] Phone Care Team Providers Care Admitting Manager Name Role Phone Stacey Wyatt MD Primary [...] Take by mouth 2 times daily. Active [place]-3 Fatty Acids (OMEGA-3 FISH OIL PO) Take [...] age to complete this topic Insurance MEDICARE [facility] Care Teams Admitting Manager Relationship Specialty Start Date End Date Stacey Wyatt MD [address] [place] [address] PCP - General Family Medicine 11/24/17
--- OUTSIDE RECORDS SUMMARY | 2024-10-24 15:02 | XMS_ITS ---
Author Organization [facility] Address [address] [place] [address] Care Team Providers Care Coffee Break Attendant Name Role Phone Nu Shirley MD Primary Care Provider [phone] Active Problems Patient Care Coordination No te [...]
--- OUTSIDE RECORDS SUMMARY | 2024-10-24 15:03 | XMS_ITS | Encounter Summary ---
Author Organization [facility] Healthcare Address [address] [place] [address] Care Team Providers Care Lubrication Servicer Name Role Phone Rafael Ruiz MD Primary Care Provider [phone]- [phone] Stacey Dunlap MD Primary Care Provider [phone]- [phone] Amado Ellis Primary Care Provider [phone] Nu Shirley MD Primary Care Provider [phone] Encounter Details Date Type Department Care Team (Late st Contact Info) Description 06/09/2017 Orders Only [facility] Health Information Management [address] [place] [address] Scanning, Provider Social History Tobacco Use Types Packs/Day Years Used Date Smoking Tobacco: Every Day Alcohol Use Standard Drinks/Week Comments Yes 0 (1 standard drink = 0.6 oz pur e alcohol) Comments Unknown Sex and Gender Information Value Date Recorded Sex Assigned at Not on file Legal Sex 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 Gender Identity Female 08/11/2017 1:49 PM CDT Sexual Orientation Not on file documented as of this encounter Plan of Treatment Not on file documented as of this encounter Procedures Procedure Name Priority Date/Time Associated Diagnosis Comments PULMONARY - RESULT SCAN 08/30/2017 SCAN - LABS 06/09/2017 SCAN - RADIOLOGY/IMAGING 06/08/2017 CARDIOLOGY DOCUMENT SCAN 06/08/2017 documented in this encounter Results * PULMONARY - RESULT SCAN (08/30/2017) Anatomical Region Laterality Modality Other us Provider Scanning Final Result * SCAN - LABS (06/09/2017) us Provider Scanning Final Result * SCAN - RADIOLOGY/IMAGING (06/08/2017) Anatomical Region Laterality Modality Other us Provider Scanning Final Result * Cardiology Document Scan (06/08/2017) Anatomical Region Laterality Modality Other us Provider Scanning CV CARDIAC SERVICES PROCEDURES Edited Result - Final documented in this encounter Visit Diagnoses Not on filedocumented in this encounter Care Teams Lubrication Servicer Relationship Specialty Start Date End Date Rafael Ruiz MD [address] [place] [address] PCP - General 11/27/15 10/26/17 Stacey Dunlap MD [address] [place] [address] PCP - General Family Practice 10/27/17 12/16/20 Amado Ellis PA [address] [place] [address] PCP - General Physician Counter Manager 12/17/20 01/13/21 Nu Shirley MD [address] [place] [address] PCP - General Family Medicine 01/14/21 documented as of this encounter
--- OUTSIDE RECORDS SUMMARY | 2024-10-24 15:03 | XMS_ITS | Clinical Summary ---
Author Organization [facility] Address [address] [place] [address] Care Team Providers Care Charge Weigher Name Role Phone Nu Shirley MD Primary Care Provider [phone] Allergies Active Allergy Reactions Criticality Noted Date [...] by mouth daily before breakfast. Active OTHER [place] Tail Mushroom 2 tablets daily . Active [...] 3 Active fluticasone propionate (FLONASE) 50 mcg/spray Ware, Suspension nasal inhaler Administer 2 Sprays in [...] daily. 5 Active naloxone (NARCAN) 4 mg/spray Ware, Non-Aerosol EMERGENCY USE ONLY: Administer 1 spray [...] [facility] [id number] [place] [address] Tray Cerna MD Information 07/29/2024 11:47 AM CDT - 08/09/2024 12:10 PM CDT Hospital Encounter [facility] Telemetry [address] [place] [phone] Mendel Banks MD Vaziri, Javad Christopher, DO Krvavac, Armin, MD Zhang, Qin, MD Hilliard, MD Sandeep Sun, MD Isabel Empyenicole ([facility]) Discharge Disposition: Assisted Fac(SNF) with Medicare Certification in Anticipation of Skilled Care 07/26/2024 External Device Data [facility] ABSTRACTION Provider, Abstract 07/26/2024 External Device Data [facility] ABSTRACTION Provider, Abstract 07/26/2024 External Device Data [facility] ABSTRACTION Provider, Abstract 07/25/2024 External Device Data [facility] ABSTRACTION Provider, Abstract 07/24/2024 External Device Data [facility] ABSTRACTION Provider, Abstract 07/17/2024 4:35 PM CDT - 07/26/2024 6:41 PM CDT Hospital Encounter [facility] Telemetry [address] [place] [phone] Mayra Watts MD Douglas, MD Loli Perdue, MD Milton Santana Musi, MD Empyenicole ([facility]) Discharge Disposition: Assisted Fac(SNF) with Medicare Certification in Anticipation of [...] 60-74 years 1-dose series) 2012 [place] Preventative Visit/Annual Wellness Visit 03/07/2024 INFLUENZA VACCINE [...] OR WO CAD Routine 02/13/2024 2:08 PM CAMPAIGN MANAGER from Last 3 Months or Most Recently Relevant to Health Maintenance Results * TELEMETRY REPORT (08/10/2024 4:31 PM CDT) Only the most recent of2 resultswithin the time period is included. Provider Scanning ECG ORDERABLES Final Result * (ABNORMAL) POC GLUCOSE (08/09/2024 8:36 AM CDT) Only the most recent of35 resultswithin the time period is included. Pathologist [facility] GLUCOSE POC 109(H) 74 - 99 mg/dL 08/09/2024 8:36 AM CDT [facility] SPECIMEN SOURCE, GLUCOSE POC Whole Blood 08/09/2024 8:36 AM CDT [facility] Blood, whole 08/09/2024 8:36 AM CDT 08/09/2024 9:46 AM CDT Isabel Hopkins MD POINT OF CARE TESTING Final Resu lt [facility] GuideIT [facility] CLIA# [id number] [address] [facility] [address] [address] * EKG 12-LEAD (08/09/2024 1:06 AM CDT) Only the most recent of3 resultswithin the time period is included. 08/09/2024 1:06 AM CDT Narrative INTERFACE SYSTEM - 08/09/2024 8:59 AM CDT [facility] [address] [place] [address] Test Date: 2024-08-09 Pat Name: ORALIA GARSIA Department: 37 Room: 2401 1 Gender: Female Account Relationship Manager: damir : 1950 Requested By: MENDEL BANKS Order Number: [id number] Reading MD: Ashish Thomas Measurements Intervals [place] Rate: 88 P: 43 MO: 119 QRS: -22 QRSD: 138 T: 102 QT: 401 QTc: 486 Interpretive Statements Sinus rhythm Atrial premature complexes Borderline short MO interval Nonspecific intraventricular conduction delay Consider anterior infarct Nonspecific T abnormalities, lateral leads Electronically Signed On 08-09-2024 8:59:06 CDT by Ashish Thomas Procedure Note Ashish Thomas MD - 08/09/2024 [facility] [address] [place] [address] Test Date: 2024-08-09 Pat Name: ORALIA GARSIA Department: 37 Room: 2401 1 Gender: Female Account Relationship Manager: damir : 1950 Requested By: MENDEL BANKS Order Number: [id number] Reading : Ashish Thomas Measurements Intervals [place] Rate: 88 P: 43 MO: 119 QRS: -22 QRSD: 138 T: 102 QT: 401 QTc: 486 Interpretive Statements Sinus rhythm Atrial premature complexes Borderline short MO interval Nonspecific intraventricular conduction delay Consider anterior infarct Nonspecific T abnormalities, lateral leads Electronically Signed On 08-09-2024 8:59:06 CDT by Ashish Thomas us Gely Howard NP ECG ORDERABLES Final Re sult INTERFACE SYSTEM Refer to clinic/hospital department * (ABNORMAL) CBC WITH DIFFERENTIAL (08/08/2024 2:13 AM CDT) Only the most recent of12 resultswithin the time period is included. Pathologist [facility] WBC 7.8 4.0 - 9.8 K/uL 08/08/2024 2:52 AM CDT [facility] RBC 2.69(L) 3.90 - 4.90 M/uL 08/08/2024 2:52 AM CDT [facility] - . [facility] HEMOGLOBIN 8.5(L) 11.8 - 14.8 g/dL 08/08/2024 2:52 AM CDT [facility] HEMATOCRIT 27.3(L) 35.5 - 44.0 % 08/08/2024 2:52 AM CDT [facility] MCV 101.5(H) 82.0 - 99.0 fL 08/08/2024 2:52 AM CDT [facility] - . [facility] MCH 31.6 27.2 - 32.6 pg 08/08/2024 2:52 AM CDT [facility] - . [facility] MCHC 31.1(L) 31.5 - 35.5 g/dL 08/08/2024 2:52 AM CDT [facility] - . [facility] RDW 15.8(H) 11.5 - 14.5 % 08/08/2024 2:52 AM CDT [facility] - . [facility] RDW-STDEV 58.4(H) 37.1 - 48.7 fL 08/08/2024 2:52 AM CDT [facility] - . [facility] PLATELETS 460(H) 140 - 350 K/uL 08/08/2024 2:52 AM CDT [facility] - . [facility] MPV 9.6 9.3 - 12.4 fL 08/08/2024 2:52 AM CDT [facility] NEUTROPHILS 57 % 08/08/2024 2:52 AM CDT [facility] LYMPHOCYTES 26 % 08/08/2024 2:52 AM CDT [facility] MONOCYTES 14 % 08/08/2024 2:52 AM CDT [facility] EOSINOPHILS 3 % 08/08/2024 2:52 AM CDT [facility] BASOPHILS 1 % 08/08/2024 2:52 AM CDT [facility] IMMATURE GRANULOCYTES 1 % 08/08/2024 2:52 AM CDT [facility] - [facility] Comment:IG (Immature Granulo cyte) count includes Metamyelocytes, Myelocytes, and Promyelocytes NEUTROPHIL ABSOLUTE 4.39 1.90 - 7.00 K/uL 08/08/2024 2:52 AM CDT [facility] LYMPHOCYTE ABSOLUTE 1.99 0.70 - 4.50 K/uL 08/08/2024 2:52 AM CDT [facility] - [facility] MONOCYTE ABSOLUTE 1.05 0.10 - 1.30 K/uL 08/08/2024 2:52 AM CDT [facility] - [facility] EOSINOPHIL ABSOLUTE 0.25 0.00 - 0.70 K/uL 08/08/2024 2:52 AM CDT [facility] - [facility] BASOPHILS ABSOLUTE 0.05 0.00 - 0.20 K/uL 08/08/2024 2:52 AM CDT [facility] SERVICES - [facility] IMMATURE GRANULOCYTES ABSOLUTE 0.05(H) 0.00 - 0.03 K/uL 08/08/2024 2:52 AM T [facility] Blood Venipuncture / Unknown 08/08/2024 2:13 AM CDT 08/08/2024 2:34 AM CDT Sudheer Frey MD HEMATOLOGY ORDERABLES Final R esult [facility] SERVICES [facility]# [id number] [address] [facility] [place] [address] * (ABNORMAL) BASIC METABOLIC PANEL (08/08/2024 2:13 AM CDT) Only the most recent of13 resultswithin the time period is included. SODIUM 135(L) 136 - 145 mmol/L 08/08/2024 3:22 AM CDT [facility] - [facility] POTASSIUM 3.5 3.5 - 5.0 mmol/L 08/08/2024 3:22 AM CDT [facility] SERVICES - . [facility] CHLORIDE 97(L) 98 - 107 mmol/L 08/08/2024 3:22 AM CDT [facility] - [facility] CO2 30(H) 22 - 29 mmol/L 08/08/2024 3:22 AM CDT [facility] CALCIUM 8.3(L) 8.6 - 10.2 mg/dL 08/08/2024 3:22 AM T [facility] BUN 4(L) 8 - 23 mg/dL 08/08/2024 3:22 AM T [facility] CREATININE 0.52 0.51 - 0.95 mg/dL 08/08/2024 3:22 AM [facility] Comment:The GFR result is no t clinically significant on patients <18 or >70 years of age. GLUCOSE 94 74 - 99 mg/dL 08/08/2024 3:22 AM [facility] GFR >60 mL/min/1.7 3 sq meter 08/08/2024 3:22 AM [facility] Comment:eGFR calculated with 2020 CKD-EPI equation. Vegetarian diet, extremely high or low muscle mass, and may affect results. Cystatin C with Glomerular Filtration Rate is a suitable alternative for these patients. ANION GAP 8 8 - 16 mmol/L 08/08/2024 3:22 AM T [facility] Blood Venipuncture / Unknown 08/08/2024 2:13 AM CDT 08/08/2024 2:35 AM CDT Sudheer Frey MD CHEMISTRY ORDERABLES Final Re sult [facility]# [id number] [address] [place] [address] * XR CHEST PA OR AP 1 [...] Other findings are stable. DICTATION LOCATION: Location [address] [place] [address] us Lucila Solis NP DIAGNOSTIC IMAGING ORDERABL ES Final Result * ECHOCARDIOGRAM W/ CONTRAST AGENT (08/03/2024 2:21 PM CDT) EJECTION FRACTION 35 INTERFACE SYSTEM 08/03/2024 12:2 7 PM CDT Narrative INTERFACE SYSTEM - 08/03/2024 3:57 PM [address]T [address] [address] [email or web address] [email or web address] Echocardiogram Patient: Oralia Garsia Study ID: [id number] Gender: F : 1950 Age: 73 Race: CHARITY Height 165.1cm Study Date: 08/03/2024 Weight: 61.3kg Access. #: [id number] BP: *Referring Physician:Ximena Almaguer *Ordering Physician:Ximena Almaguer carpenter's helper: Nurse: STUDY CONCLUSIONS: SUMMARY: - Left [...] PM. Prepared and Electronically Authenticated Solomon Sanderson [id number] Procedure Note Solomon Sanderson MD - 08/03/[address] [place] [address] [email or web address] Transthoracic Echocardiogram Patient: Oralia Garsia Study ID: [id number] Gender: F : 1950 Age: 73 Race: CHARITY Height 165.1cm Study Date: 08/03/2024 Weight: 61.3kg Access. #: [id number] BP: *Referring Physician:Ximena Almaguer *Ordering Physician:* Ximena Alvarado carpenter's helper: Nurse: STUDY CONCLUSIONS: SUMMARY: - Left [...] PM. Prepared and Electronically Authenticated Solomon Sanderson [id number] us Ximena Alvarado MD US ORDERABLES Final [...] anterior left upper lobe. DICTATION LOCATION: Location [address] [place] [address] 08/03/2024 12:37 PM CDT EXAMINATION: CT CHEST [...] upper lobe. DICTATION LOCATION: Location 1 - [facility] Marifer Garcia NP CT ORDERABLES Final Result * MAGNESIUM LEVEL (08/02/2024 12:28 AM CDT) Only the most recent of2 resultswithin the time period is included. MAGNESIUM 1.7 1.6 - 2.4 mg/dL 08/02/2024 9:20 AM CDT [facility] Blood Venipuncture / Unknown 08/02/2024 12:28 AM CDT 08/02/2024 12:46 AM CDT us Ximena Alvarado MD CHEMISTRY ORDERABLES Fi nal Result [facility]# [id number] [address] [place] [address] * CT GUIDED NEEDLE PLACEMENT (07/31/2024 1:46 PM CDT) Anatomical Region Laterality Modality Computed Tomogra phy 07/31/2024 12:5 8 PM CDT Impressions 07/31/2024 4:15 PM CDT IMPRESSION: Successful CT guided right chest tube placement. DICTATION LOCATION: Location 1 - [facility] Narrative 07/31/2024 4:15 PM CDT EXAMINATION: PERCUTANEOUS RIGHT CHEST TUBE PLACEMENT WITH CT GUIDANCE DATE: 07/31/2024 1:46 PM HISTORY: 73 years-old Female with loculated right pleural effusion. ANESTHESIA: The procedure was performed with local anesthesia. PHYSICIAN(S): Stefan Rasmussen M.D. TECHNIQUE: The risks, benefits and alternatives were discussed and informed consent was obtained. Prior to beginning the procedure, [place] Protocol was performed to confirm the patient's [...] pleural space before dilating the tract. A 14-Mongolian catheter was then advanced over the guidewire [...] was obtained. Prior to beginning the procedure, [place] Protocol was performed to confirm the patient's [...] pleural space before dilating the tract. A 14-Mongolian catheter was then advanced over the guidewire [...] tube placement. DICTATION LOCATION: Location 1 - [facility] Stefan Rasmussen MD CT ORDERABLES Final Result * (ABNORMAL) ANAEROBIC/AEROBIC CULTURE W GRAM STAIN (07/31/2024 1:46 PM CDT) CULTURE STREPTOCOCCUS CONSTELLATUS(A) JONNY MCG/ML 08/05/2024 7:51 AM T [facility] GRAM STAIN No organisms observed 08/05/2024 7:51 AM T [facility] GRAM STAIN 3+ (Moderate) Polymorphonuclear WBC 08/05/2024 7:51 AM [facility] Body fluid (Pleura, right) Collection / Unknown 07/31/2024 1:46 PM CDT 07/31/2024 3:15 PM CDT [facility] - 08/05/2024 7:51 AM CDT Results communicated to Edita Linares PCA ([facility] TELE 2) on 08/04/2024 at 10:35 [...] GENERAL ORDERABLES Final Result Performing Organization Address [facility]/ZIP Co de Phone Number [facility]# [id number] [address] [place] [address] * FUNGUS STAIN (07/31/2024 1:46 PM CDT) FUNGUS STAIN No fungal elements observed No yeast or fungal elements observed 07/31/2024 4:14 PM CDT [facility] Body fluid (Pleura, right) Collection / Unknown 07/31/2024 1:46 PM CDT 07/31/2024 3:15 PM CDT Ximena Alvarado MD MICROBIOLOGY - GENERAL ORDERABLES Final Result Performing Organization Address City/[facility]/ZIP Co de Phone Number [facility]# [id number] [address] [place] [place] [address] * FUNGUS CULTURE, OTHER (07/31/2024 1:46 PM CDT) CULTURE No fungus isolated. 08/28/2024 8:32 AM CDT [facility] Body fluid (Pleura, right) Collection / Unknown 07/31/2024 1:46 PM CDT 07/31/2024 3:15 PM CDT Narrative [facility] SERVICES [facility] - 08/28/2024 8:32 AM CDT Culture is held for a minimum of 4 weeks. Ximena Alvarado MD MICROBIOLOGY - GENERAL ORDERABLES Final Result Performing Organization Address [facility]/ZIP Co de Phone Number [facility] CLIA# [id number] [address] [place] [address] * (ABNORMAL) CELL COUNT WITH DIFFERENTIAL, BODY FLUID (07/31/2024 1:46 PM CDT) APPEARANCE, BODY FLUID Turbid 07/31/2024 6:40 PM CDT [facility] COLOR, FLD Yellow 07/31/2024 6:40 PM CDT [facility] NUCLEATED CELL, FLD 92,000(H) 1,395 - 3,734 /uL 07/31/2024 6:40 PM CDT [facility] Comment:Quantitated by dilut ion. RBC, FLD 1,822 No Ref Range Estab /uL 07/31/2024 6:40 PM CDT [facility] Comment:Quantitated by dilut ion. NEUTROPHILS, FLD 96(H) 0 - 1 % 07/31/2024 6:40 PM CDT [facility] MONOCYTE/MACRO PHAGE, FLD 4(L) 64 - 80 % 07/31/2024 6:40 PM CDT [facility] Body fluid (Pleura, right) Collection / Unknown 07/31/2024 1:46 PM CDT 07/31/2024 3:16 PM CDT Ximena Alvarado MD BODY FLUIDS AND STOOLS Final Result Performing Organization Address [facility]/State/ZIP Co de Phone Number [facility] CLIA# [id number] [address] [place] [address] * PROTEIN, BODY FLUID (07/31/2024 1:46 PM CDT) PROTEIN, FLD 2.6 g/dL 07/31/2024 4:13 PM CDT [facility] Body fluid (Pleura, right) Collection / Unknown 07/31/2024 1:46 PM CDT 07/31/2024 3:15 PM CDT [facility] - 07/31/2024 4:13 PM CDT Interpretive Criteria: Transudate: <2.0 g/dL Exudate: >2.0 g/dL The reference range and other method performance specifications are unavailable for this body fluid. Comparison of this result with the concentration in the blood, serum, or plasma is recommended. Ximena Alvarado MD BODY FLUIDS AND STOOLS Final Result Performing Organization Address [facility]/ZIP Co de Phone Number [facility]# [id number] [facility] [address] [address] * LACTATE DEHYDROGENASE, BODY FLUID (07/31/2024 1:46 PM CDT) Pathologist [facility] LD, FLD >1,000 U/L 07/31/2024 4:21 PM CDT [facility] Body fluid (Pleura, right) Collection / Unknown 07/31/2024 1:46 PM CDT 07/31/2024 3:15 PM CDT [facility] - 07/31/2024 4:21 PM CDT Interpretive Criteria: [...] AND STOOLS Final Result Performing Organization Address [facility]/State/ZIP Co de Phone Number [facility] CLIA# [id number] [address] [place] [address] * (ABNORMAL) PH, BODY FLUID (07/31/2024 1:46 PM CDT) PH, FLD 7.13(L) 7.40 - 7.64 07/31/2024 3:46 PM CDT [facility] Body fluid (Pleura, right) Collection / Unknown 07/31/2024 1:46 PM CDT 07/31/2024 3:15 PM CDT Narrative [facility] - 07/31/2024 3:46 PM CDT Reference Range: [...] MD BODY FLUIDS AND STOOLS Final Result [id number] [address] [place] [address] * CYTOLOGY, NON GYNE (07/31/2024 1:46 PM CDT) CASE REPORT Medical Cytology Report Case: [id number] Authorizing Provider: Ximena Alvarado MD Collected: 07/31/2024 01:46 PM Ordering Location: [facility] Received: 08/01/2024 07:28 AM Telemetry 2 Pathologist: Jaimie Escobar MD Specimen: Pleural fluid, right pleural 10:56 AM CDT [facility] FINAL DIAGNOSIS Pleural fluid, right, cytologic examination: - Abundant degenerated acute inflammatory cells. - No malignant cells identified. - Cell block supports the cytologic diagnosis. - Low volume specimen. See comment. 5 10:56 AM T [facility] at 1056 CDT GROSS DESCRIPTION Received is a container labeled Oralia Garsia and right pleural fluid. It contains 6 mL of cloudy yellow fluid. One ThinPrep and 1 cell block made. One Coleman-stained cytospin slide received from Hematology. 10:56 AM T [facility] MICROSCOPIC DESCRIPTION The slides are labeled [id number] and Oralia Garsia. Microscopic examination of the ThinPrep, cytospin, and cell block preparations show degenerated inflammatory cells. Malignant cells are not identified. Serial submission of fluid may increase the diagnostic yield if there is strong clinical concern for malignancy. Of note, 6 mL of specimen were received; greater than 50 mL are preferred. 5 10:56 AM T [facility] OPERATIVE PROCEDURE Thoracentesis 10:56 AM [facility] CLINICAL INFORMATION Not specified 10:56 AM T [facility] COMMENT Special stain, immunohistochemical, and/or in situ hybridization results are interpreted with controls that demonstrate appropriate staining reactions. Note on use of immunohistochemistry reagents and in situ hybridization probes: These tests were developed and their performance characteristics determined by [facility], Department of Laboratory Medicine. It has [...] part or completely in the following laboratories: [facility], CLIA #[id number] [address] [place] [address] [facility]/[place], CLIA #[id number] [address] [place], [place] [address] [address]. 5 10:56 AM [facility] Body fluid PLEURAL FLUID SPECIMEN / Unknown Collection / Unknown 07/31/2024 1:46 PM CDT 08/01/2024 7:28 AM CDT Ximena Alvarado MD PATHOLOGY/CYTOLOGY ORDE RABLES Final Result [facility]# [id number] [address] [place] [address] * PHOSPHORUS (07/30/2024 5:29 AM CDT) PHOSPHORUS 3.0 2.5 - 4.5 mg/dL 07/30/2024 9:20 AM CDT [facility] Blood Venipuncture / Unknown 07/30/2024 5:29 AM CDT 07/30/2024 5:38 AM CDT Sudheer Frey MD CHEMISTRY ORDERABLES Final Re sult [facility]# [id number] [address] [place] [address] * TRANSFUSE RED BLOOD CELLS (07/29/2024 9:27 PM CDT) Ashish Grimaldo MD BLOOD TRANSFUSION ORDERAB LES Final Result * (ABNORMAL) HEMOGLOBIN AND HEMATOCRIT (07/29/2024 8:18 PM CDT) HEMOGLOBIN 8.8(L) 11.8 - 14.8 g/dL 07/29/2024 8:57 PM CDT [facility] Comment:Significant change f rom prior result, correlate clinically and redraw if necessary. HEMATOCRIT 26.9(L) 35.5 - 44.0 % 07/29/2024 8:57 PM CDT [facility] Blood Venipuncture / Unknown 07/29/2024 8:18 PM CDT 07/29/2024 8:26 PM CDT Ashish Grimaldo MD HEMATOLOGY ORDERABLES Fin al Result Performing Organization Address [facility]/ZIP Co de Phone Number [facility] SERVICES - [facility] CLND# [id number] [address] [place] [address] * VERIFICATION BLOOD GROUP (07/29/2024 3:17 PM CDT) ABO GROUP AB 07/29/2024 4:52 PM CDT [facility] SERVICES -- [facility] RH (D) TYPE Positive 07/29/2024 4:52 PM CDT [facility] SERVICES -- [facility] Blood Venipuncture / Unknown 07/29/2024 3:17 PM CDT 07/29/2024 3:17 PM CDT Beniot Hardy MD BLOOD BANK ORDERABLES Final Result Performing Organization Address [facility] Co de Phone Number [facility] SERVICES -- [facility]# [id number] [address] [place] [address] * TYPE AND SCREEN (07/29/2024 3:04 PM CDT) ABO GROUP AB 07/29/2024 4:52 PM CDT [facility]AT[facility] SERVICES -- .[facility] RH (D) TYPE Positive 07/29/2024 4:52 PM CDT [facility] LABORATORY SERVICES -- [facility] ANTIBODY SCREEN Negative 07/29/2024 4:52 PM CDT [facility]ATORY SERVICES -- [facility] Blood Venipuncture / Unknown 07/29/2024 3:04 PM CDT 07/29/2024 3:12 PM CDT Ashish Grimaldo MD BLOOD BANK ORDERABLES Sharan cameron Result - Final [facility] LABORATORY SERVICES -- [facility] CLIA# [id number] [address] [place] [address] * PREPARE RED BLOOD CELLS (07/29/2024 2:43 PM CDT) Pathologist [facility] COMPONENT TYPE [id number] [facility]ATORY SERVICES -- [facility] COMPONENT IDENTIFICATION [id number] [facility] LAB[facility]ORY SERVICES -- [facility] UNIT ABO B [facility] LABOR[facility]ORY SERVICES -- [facility] UNIT RH NEG [facility] -- [facility] CROSSMATCH Compatible [facility] -- [facility] COMPONENT STATUS Transfused ME [facility] SERVICES -- [facility] COMPONENT EXPIRATION DATE/TIME [id number] [facility]ORY SERVICES -- [facility] COMPONENT CODING SYSTEM 1700 [facility] LAB[facility]ORY SERVICES -- [facility] VOLUME, BLOOD PRODUCT 350 [facility] LAB[facility]ATORY SERVICES -- [facility] Other, specify 07/29/2024 2: 43 PM CDT Ashish Grimaldo MD LAB TRANSFUSION ORDERABLE S Edited Result - Final [facility]ORY SERVICES -- [facility] CLIA# [id number] [address] [place] [address] * LACTIC ACID (07/29/2024 1:40 PM CDT) [facility] LACTIC ACID 1.1 <=2.0 mmol/L 07/29/2024 2:34 PM CDT [facility]ORY SERVICES - [facility] Blood Venipuncture / Unknown 07/29/2024 1:40 PM CDT 07/29/2024 1:51 PM CDT Sudheer Frey MD CHEMISTRY ORDERABLES Final Re sult [facility] - [facility] CLIA# [id number] [address] [place] [address] * (ABNORMAL) CBC WITHOUT DIFFERENTIAL (07/29/2024 1:40 PM CDT) [facility] [facility] WBC 12.3(H) 4.0 - 9.8 K/uL 07/29/2024 2:36 PM CDT [facility] SERVICES [facility] RBC 2.11(L) 3.90 - 4.90 M/uL 07/29/2024 2:36 PM CDT [facility] HEMOGLOBIN 6.8(LL) 11.8 - 14.8 g/dL 07/29/2024 2:36 PM CDT [facility] - [facility] Comment:Verified by repeat a nalysis. HEMATOCRIT 21.8(L) 35.5 - 44.0 % 07/29/2024 2:36 PM CDT [facility] MCV 103.3(H) 82.0 - 99.0 fL 07/29/2024 2:36 PM CDT [facility] SERVICES [facility] MCH 32.2 27.2 - 32.6 pg 07/29/2024 2:36 PM CDT [facility] MCHC 31.2(L) 31.5 - 35.5 g/dL 07/29/2024 2:36 PM CDT [facility] PLATELETS 900(H) 140 - 350 K/uL 07/29/2024 2:36 PM CDT [facility] MPV 9.3 9.3 - 12.4 fL 07/29/2024 2:36 PM CDT [facility] RDW 15.5(H) 11.5 - 14.5 % 07/29/2024 2:36 PM CDT [facility] RDW-STDEV 58.4(H) 37.1 - 48.7 fL 07/29/2024 2:36 PM CDT [facility] Blood Venipuncture / Unknown 07/29/2024 1:40 PM CDT 07/29/2024 1:50 PM CDT Sudheer Frey MD HEMATOLOGY ORDERABLES Final R esult [facility] CLIA# [id number] [address] [place] [address] * (ABNORMAL) HEMOGLOBIN A1C (07/29/2024 1:40 PM CDT) [facility] HEMOGLOBIN A1C 5.7(H) <5.7 % 07/29/2024 4:02 PM CDT [facility] EST. AVG GLUCOSE, A1C 117 mg/dL 07/29/2024 4:02 PM CDT [facility] Blood Venipuncture / Unknown 07/29/2024 1:40 PM CDT 07/29/2024 1:50 PM CDT Narrative [facility] - 07/29/2024 4:02 PM CDT HGB A1C INTERPRETATION NORMAL: <5.7% PRE-DIABETES: 5.7 - 6.4% DIABETES: 6.5% OR GREATER Sudheer Frey MD CHEMISTRY ORDERABLES Final Re sult [facility] CLIA# [id number] [address] [place] [address] * MANUAL DIFFERENTIAL (07/26/2024 1:57 AM CDT) [facility] PLATELET EST. Consistent w Count 07/26/2024 4:00 AM CDT [facility] ANISOCYTOSIS 1+ /hpf 07/26/2024 4:00 AM CDT [facility] POIKILOCYTES 1+ /hpf 07/26/2024 4:00 AM CDT [facility] HYPOCHROMIA 1+ /hpf 07/26/2024 4:00 AM CDT [facility] Blood Venipuncture / Unknown 07/26/2024 1:57 AM CDT 07/26/2024 2:09 AM CDT Yue Gibbons NP HEMATOLOGY ORDER OTIS COM Final Result [facility]# [id number] [address] [place] [address] * MAMMO DIAGNOSTIC UNI LEFT W OR WO CAD (02/13/2024 2:08 PM CAMPAIGN MANAGER) Anatomical Region Laterality Modality Breast Left Mammography Suhail Luis MD MAMMO ORDERABLES Final Result from Last 3 Months or Most Recently Relevant to Health Maintenance Insurance [facility] Advance Directives For more information, please contact: [phone] * Full Code (Latest Code Status on File) Date Activated Date Inactivated Comments 07/29/2024 12:15 PM 08/09/2024 2:25 PM * Full Code Date Activated Date Inactivated Comments 07/17/2024 6:49 PM 07/26/2024 8:51 PM * Full Code Date Activated Date Inactivated Comments 06/25/2024 8:28 PM 06/29/2024 3:15 PM Care Teams Charge Weigher Relationship Specialty Start Date End Date Nu Shirley MD [address] [place] [address] PCP - General Family Practice 07/18/23
--- OUTSIDE RECORDS SUMMARY | 2024-10-24 15:03 | XMS_ITS | Encounter Summary ---
Author Organization [facility] Healthcare Address [address] [place] [address] Care Team Providers Care Bilingual Teacher Aide Name Role Phone Rafael Ruiz MD Primary Care Provider +- [phone] Stacey Dunlap MD Primary Care Provider +- [phone] Amado Ellis Primary Care Provider [phone] Nu Shirley MD Primary Care Provider [phone] Encounter Details Date Type Department Care Team (Late st Contact Info) Description 06/16/2017 Orders Only [facility] [place] Health Information Management [address] [place] [address] Scanning, Provider Social History Tobacco Use Types Packs/Day Years Used Date Smoking Tobacco: Every Day Alcohol Use Standard Drinks/Week Comments Yes 0 (1 standard drink = 0.6 oz pur e alcohol) Comments Unknown Sex and Gender Information Value Date Recorded Sex Assigned at Not on file Legal Sex Female 4:14 AM SWATCH 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 Gender Identity Female 08/11/2017 1:49 PM CDT Sexual Orientation Not on file documented as of this encounter Plan of Treatment Not on file documented as of this encounter Procedures Procedure Name Priority Date/Time Associated Diagnosis Comments SCAN - RADIOLOGY/IMAGING 06/16/2017 documented in this encounter Results * SCAN - RADIOLOGY/IMAGING (06/16/2017) Anatomical Region Laterality Modality Other us Provider Scanning Final Result documented in this encounter Visit Diagnoses Not on filedocumented in this encounter Care Teams Bilingual Teacher Aide Relationship Specialty Start Date End Date Rafael Ruiz MD [address] [place] [address] PCP - General 11/27/15 10/26/17 Stacey Dunlap MD [address] [place] [address] PCP - General Family Practice 10/27/17 12/16/20 Amado Ellis PA [address] [place] [address] PCP - General Physician Jammer Operator 12/17/20 01/13/21 Nu Shirley MD [address] [place] [address] PCP - General Family Medicine 01/14/21 documented as of this encounter
--- OUTSIDE RECORDS SUMMARY | 2024-10-24 15:03 | XMS_ITS | Clinical Summary ---
Author Organization [facility] Address [address] [place] [address] Care Team Providers Care Negative Developer Name Role Phone Unavailable Primary Care Provider [...]
--- OUTSIDE RECORDS SUMMARY | 2024-10-24 15:03 | XMS_ITS | Encounter Summary ---
Author Organization [facility] Healthcare Address [address] [place] [address] Care Team Providers Care Online Trader Name Role Phone Rafael Ruiz MD Primary Care Provider +- [phone] Stacey Dunlap MD Primary Care Provider + [phone] Amado Ellis Primary Care Provider [phone] Nu Shirley MD Primary Care Provider [phone] Encounter Details Date Type Department Care Team (Late st Contact Info) Description 07/02/2017 Orders Only [facility] Health Information Management [address] [place] [address] Scanning, Provider Social History Tobacco Use Types Packs/Day Years Used Date Smoking Tobacco: Light Smoker Smokeless Tobacco: Never Alcohol Use Standard Drinks/Week Comments Yes 0 (1 standard drink = 0.6 oz pur e alcohol) social Comments Unknown Sex and Gender Information Value Date Recorded Sex Assigned at Not on file 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 Gender Identity Female 08/11/2017 1:49 PM CDT Sexual Orientation Not on file documented as of this encounter Plan of Treatment Not on file documented as of this encounter Procedures Procedure Name Priority Date/Time Associated Diagnosis Comments SCAN - RADIOLOGY/IMAGING 07/02/2017 SCAN - LABS 07/02/2017 documented in this encounter Results * SCAN - LABS (07/02/2017) us Provider Scanning Final Result * SCAN - RADIOLOGY/IMAGING (07/02/2017) Anatomical Region Laterality Modality Other us Provider Scanning Edited Result - Final documented in this encounter Visit Diagnoses Not on filedocumented in this encounter Care Teams Online Trader Relationship Specialty Start Date End Date Rafael Ruiz MD [address] [facility] [place] [place] [address] PCP - General 11/27/15 10/26/17 Stacey Dunlap MD [address] [facility] [place] [place] [id number] PCP - General Family Practice 10/27/17 12/16/20 Amado Ellis, PA [address] [place] [address] PCP - General Physician Steam Shovel Oiler 12/17/20 01/13/21 Nu Shirley MD [address] [place], [place] [id number] PCP - General Family Medicine 01/14/21 documented as of this encounter
--- OUTSIDE RECORDS SUMMARY | 2024-10-24 15:03 | XMS_ITS ---
Author Organization [facility] [address] Address [address] [place] [address] Care Team Providers Care Sports Intern Name Role Phone Nu Shirley MD Primary Care Provider [phone] Active Problems Problem Noted Date Diagnosed Date COPD (chronic obstructive pulmonary disease) Atypical hyperplasia of left breast 11/28/2017 Lobular carcinoma in situ (LCIS) of left breast 11/28/2017 Abnormal ultrasound of breast 09/20/2017 Presence of stent in coronary artery 06/23/2017 Tobacco abuse 06/23/2017 Essential hypertension 06/23/2017 History of non-ST elevation myocardial infarctio n (NSTEMI) 06/23/2017 Coronary artery disease invo lving [place] coronary artery of [place] heart without angina pectoris 06/23/2017 Concussion [...] consider Prolia. She should continue calcium of 1993-7438 mg per day through dietary intake or [...] this time. She should continue calcium of 5609-3160 mg per day through dietary intake or [...] has improved. She should continue calcium of 0197-2986 mg per day through dietary intake or supplements and vitamin D 2000 IU per day get IV Reclast again Assessment & Plan (11/23/2018 4:00 PM CDT): In summary, Ms. GARSIA has osteoporosis that is likely multifactorial secondary to tobacco use and family history of osteoporosis and advanced age. Her bone density has improved. She should continue calcium of 7996-3748 mg per day through dietary intake or supplements and vitamin D 2000 IU per day get IV Reclast again. Assessment & Plan (10/27/2017 12:06 PM CDT): In summary, Ms. GARSIA has osteoporosis that is likely multifactorial secondary to tobacco use and family history of osteoporosis and advanced age. She's being treated with calcium of 4587-3240 mg per day through dietary intake or [...]
--- OUTSIDE RECORDS SUMMARY | 2024-10-24 15:03 | XMS_ITS | Clinical Summary ---
Author Organization [facility] [address] Address [address] [place] [address] Care Team Providers Care Hardware Test Engineer Name Role Phone Nu Shirley MD Primary Care Provider [phone] Allergies Active Allergy Reactions Criticality Noted Date [...] mg total) by mouth daily Active zoledronic ykqw-hmlywukf-x ater (RECLAST) 5 mg/100 mL piggyback Active [...] EACH NOSTRIL THREE TIMES DAILY 4 Active atorvastatin (LIPITOR) 80 mg tablet [...] mouth twice daily 180 tablet 5 Active spironolactone (ALDACTONE) 25 mg tablet Take 1 tablet (25 mg total) by mouth daily 30 tablet 11 5 Active Active Problems Problem Noted Date Diagnosed Date COPD (chronic obstructive pulmonary disease) Atypical hyperplasia of left breast 11/28/2017 Lobular carcinoma in situ (LCIS) of left breast 11/28/2017 Abnormal ultrasound of breast 09/20/2017 Presence of stent in coronary artery 06/23/2017 Tobacco abuse 06/23/2017 Essential hypertension 06/23/2017 History of non-ST elevation myocardial infarctio n (NSTEMI) 06/23/2017 Coronary artery disease invo lving [place] coronary artery of [place] heart without angina pectoris 06/23/2017 Concussion with [...] consider Prolia. She should continue calcium of 4008-9434 mg per day through dietary intake or [...] this time. She should continue calcium of 3051-1480 mg per day through dietary intake or [...] has improved. She should continue calcium of 0656-5496 mg per day through dietary intake or supplements and vitamin D 2000 IU per day get IV Reclast again Assessment & Plan (11/23/2018 4:00 PM CDT): In summary, Ms. GARSIA has osteoporosis that is likely multifactorial secondary to tobacco use and family history of osteoporosis and advanced age. Her bone density has improved. She should continue calcium of 7365-8204 mg per day through dietary intake or supplements and vitamin D 2000 IU per day get IV Reclast again. Assessment & Plan (10/27/2017 12:06 PM CDT): In summary, Ms. GARSIA has osteoporosis that is likely multifactorial secondary to tobacco use and family history of osteoporosis and advanced age. She's being treated with calcium of 7974-3584 mg per day through dietary intake or supplements and vitamin D 2000 IU per day and Forteo (teriparatide) and she's tolerating it well. Her bone density has improved. Encounters Date Type Department Care Team Description 07/27/2024 Orders Only [facility] Medical Group Cardiology [address] [place] [address] Christy Menjivar NP 07/24/2024 Orders Only [facility] Medical [facility] Cardiology [address] [place] [address] Christy Menjivar NP from Last 3 Months Surgical History Surgery Date Site/Laterality Comments HYSTERECTOMY KNEE SURGERY CARDIAC CATHETERIZATION BREAST SURGERY JOINT REPLACEMENT 03/07/2005 - 03/06/2006 CARDIAC STENT PLACEMENT Medical History Medical History Date Comments Asthma Asthma Bronchitis Bronchitis; Comm ents: NB 11/28/2015 -Chronic Hx Other Medical Acid reflux Hypertension Heart attack (HCC) Hypercholesteremia Cancer (HCC) pre-cancerous [facility] Osteoporosis GERD (gastroesophageal reflux disease) ? Brain concussion 2009 Chronic bronchitis (HCC) Emphysema of lung CHF (congestive heart failure) (HCC) Family History [...] on file Legal Sex Female 4:14 AM FUNERAL DIRECTOR Gender Identity Female 08/11/2017 1:49 PM CDT Sexual Orientation Not on file Obstetrics History Last Filed Vital Signs Vital Sign Reading Time Taken Comments Blood Pressure 127/65 03/10/2024 10:49 AM FUNERAL DIRECTOR Pulse 94 03/10/2024 10:49 AM FUNERAL DIRECTOR Temperature 36.7 C (98.1 F) 03/10/2024 10:49 AM FUNERAL DIRECTOR Respiratory Rate 20 03/10/2024 10:49 AM FUNERAL DIRECTOR Oxygen Saturation 97% 03/10/2024 10:49 AM FUNERAL DIRECTOR Inhaled Oxygen Concentration - - Weight 60.8 kg (134 lb 1.6 oz) 03/10/2024 10:49 AM FUNERAL DIRECTOR Height 165.1 cm (5' 5) 03/10/2024 10:49 AM FUNERAL DIRECTOR Body Mass Index 22.32 03/10/2024 10:49 AM FUNERAL DIRECTOR Plan of Treatment Health Maintenance Due Date Last Done Comments Breast Cancer Screening-Mammogram 1950 Colon Cancer Screening-Colonoscopy 1950 Depression Screening 1950 Hepatitis B Screening 1970 DTaP/Tdap/Td Vaccine (2 - Td or Tdap) 03/28/2016 03/28/2006 Well Visit 65+ 2017 Fall Risk Assessment 03/31/2024 03/31/2023, 12/12/19 20 Influenza Vaccine (#1) 2024 11/13/2019, 2018 Osteoporosis Screening-Bone Density Scan 01/11/2025 01/11/2023, 12/31/2021, 12/31/2021, Additional history exists Zoster Vaccine Completed 08/29/2018, 05/18/2018 Pneumococcal vaccine 65+ Completed 020, 12/01/2017, 07/05/2013 Hepatitis C Screening Completed 07/05/2023 Medical Devices Implanted Type Area Surveyor Geodetic Device Identifier Shelf Expiration Date Model / Serial / Lot [employer] Device Closure Vascade Od5 Fr Femoral Artery [id number] - [id number] Implanted:Qty: 1 on 03/31/2023 by Miguel Mccloud MD at [facility] 12/02/2024 [id number] / / [id number] Procedures Procedure Name Priority Date/Time Associated Diagnosis Comments HEPATITIS PANEL, ACUTE Routine 07/05/2023 9:55 AM CDT Acid phosphatase elevated Fatigue Hypopotassemia DEXA TBS AXIAL SKELETON BONE DENSITY 1 OR MORE SITES Schedule Routine, Read Routine (OP Routine) 01/11/2023 10:31 AM FUNERAL DIRECTOR Age-related osteoporosis without current pathological fracture from [...] 19. Hep B core IgM Nonreactive Nonreactive [facility] Comment: Interpretive Data If HepB Core IgM Ab is reported as Equivocal, a new sample should be drawn in two weeks for testing. Current interpretive data was last revised on 19. Hep C Ab Nonreactive Nonreactive [facility] Comment: Interpretive Data Nonreactive: Antibodies to HCV [...] last revised on 2019. HepBsAg Nonreactive Nonreactive [facility] Blood Venous blood specimen / Unknown 07/05/2023 9:55 AM CDT 07/05/2023 3:12 PM CDT Narrative [facility] - 07/05/2023 5:04 PM CDT Fax results to Dr Nu Shirley [phone] Nu Shirley MD LAB MICROBIOLOGY - [facility] Final Result [facility] [address] Department [place] [address] * Dexa TBS Axial Skeleton Bone Density 1 or more sites (01/11/2023 10:31 AM FUNERAL DIRECTOR) Anatomical Region Laterality Modality Wrist, Body N/A Radiographic Batsheva ging Narrative 01/11/2023 4:22 PM FUNERAL DIRECTOR Patient Name: Oralia Garsia Date of : 1950 Date of scan: 01/11/2023 Bone mineral density was performed on a [employer]úb[employer] Discovery Densitometer. Based on machine cross-calibration and [...] by the International Society of Clinical Densitometry. [id number] Salud John MD IMG DXA PROCEDURES Final Re sult from Last 3 Months or Most Recently Relevant to Health Maintenance Insurance T MEDICARE [facility] MEDICARE [facility] Address: [facility] [id number] [place] [address] [facility] MEDICARE Care Teams Hardware Test Engineer Relationship Specialty Start Date End Date Nu Shirley MD PCP - General Family Medicine 01/14/21
--- OUTSIDE RECORDS SUMMARY | 2024-10-24 15:03 | XMS_ITS | Encounter Summary ---
Author Organization [facility] Healthcare Address [address] [place] [address] Care Team Providers Care Merchandising Assistant Name Role Phone Stacey Dunlap MD Primary Care Provider [phone] Amado Ellis Primary Care Provider [phone] Nu Shirley MD Primary Care Provider [phone] Encounter Details Date Type Department Care Team (Late st Contact Info) Description 12/12/2018 Orders Only [facility] Health Information Management [address] [place] [address] Scanning, Provider Social History Tobacco Use Types Packs/Day Years Used Date Smoking Tobacco: Light Smoker Smokeless Tobacco: Never Alcohol Use Standard Drinks/Week Comments Yes 0 (1 standard drink = 0.6 oz pur e alcohol) social Comments Unknown Sex and Gender Information Value Date Recorded Sex Assigned at Not on file 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 Gender Identity Female 08/11/2017 1:49 PM CDT Sexual Orientation Not on file documented as of this encounter Plan of Treatment Not on file documented as of this encounter Procedures Procedure Name Priority Date/Time Associated Diagnosis Comments SCAN - LABS 12/12/2018 documented in this encounter Results * SCAN - LABS (12/12/2018) us Provider Scanning Final Result documented in this encounter Visit Diagnoses Not on filedocumented in this encounter Care Teams Merchandising Assistant Relationship Specialty Start Date End Date Stacey Dunlap MD PCP - General Family Practice 10/27/17 12/16/20 Amado Ellis PA [address] [place] [address] PCP - General Physician Director Life Insurance 12/17/20 01/13/21 Nu Shirley MD [address] [place] [address] PCP - General Family Medicine 01/14/21 documented as of this encounter
[2024-10-24 15:05] LABS: MALB Creatinine Ratio 9.0 mg/g (0-30)
[2024-10-24 15:09] LABS: Iron 27 ug/dL (37-170)
[2024-10-24 15:11] LABS: Alanine Aminotransferase 22 U/L (6-35); Albumin Level 3.8 g/dL (3.5-5.1); Alkaline Phosphatase 83 U/L (38-126); Anion Gap 9 mmol/L (4-12); Aspartate Amino Transferase 31 U/L (14-36); Bilirubin,Total 0.4 mg/dL (0.2-1.3); Blood Urea Nitrogen 20 mg/dL (7-17); Calcium 9.2 mg/dL (8.4-10.2); Carbon Dioxide 23 mmol/L (22-30); Chloride 102 mmol/L (98-107); Cholesterol 179 mg/dL (0-200); Estimated Glomerular Filt Rate > 60; Glucose 117 mg/dL (65-110); HDL Direct 61 mg/dL; Potassium 4.3 mmol/L (3.4-5.0); Sodium 134 mmol/L (137-145); Total Protein 6.8 g/dL (6.3-8.2); Triglycerides 81 mg/dL (<150)
[2024-10-24 15:20] LABS: Percent Iron Saturation 10 % (20-50)
[2024-10-24 15:33] LABS: Free T4 Free Thyroxine 1.21 ng/dL (0.78-2.19)
[2024-10-24 15:48] LABS: Thyroid Stimulating Hormone 1.130 uIU/mL (0.465-4.680)
[2024-10-24 15:51] LABS: Ferritin 110.00 ng/mL (11.1-264)
[2024-10-24 16:23] LABS: Vitamin B12 209.0 pg/mL (239-931)
== END 2024-10-24 14:28 | disposition home or self-care (01) ==
LOC: ANHLAB 14:31
PROVIDERS: PCP Family Medicine; Visit Provider Student in an Organized Health Care Education/Training Program
DX: E78.5 Hyperlipidemia, unspecified (principal); I10 Essential (primary) hypertension; D64.9 Anemia, unspecified; J90 Pleural effusion, not elsewhere classified; J18.9 Pneumonia, unspecified organism; J95.811 Postprocedural pneumothorax; I25.10 Atherosclerotic heart disease of native coronary artery without angina pectoris; F10.11 Alcohol abuse, in remission; Z79.84 Long term (current) use of oral hypoglycemic drugs; Z13.1 Encounter for screening for diabetes mellitus
CPT/HCPCS: 36415; 71046; 80053; 80061; 82043; 82306; 82607; 82728; 82746; 83036; 83540; 83550; 84439; 84443; 85025

== ENCOUNTER 2025-02-01 07:54 | Inpatient (IN) | payer MEDICARE, SELFPAY ==
[2025-02-01] VITALS (16 sets, daily range): BP systolic 107–146; BP diastolic 73–99; PULSE 93–133; RESP 16–32; TEMP 36.6–37; O2SAT 97–100; BMI 17.2
--- NOTE | ~2025-02-01 | XR_ITS ---
EXAMINATION: XR chest 1V portable DATE: 02/06/2025 08:44 INDICATION: Pneumonia. COPD. TECHNIQUE: frontal view of the chest was obtained. COMPARISON: Chest radiograph dated 02/04/2025 FINDINGS: Hyperexpansion of lungs with associated architectural distortion in the right upper lung zone consistent with emphysema. Large calcified nodule in the right lower lobe consistent with old granulomatous disease. Persistent airspace opacities in the right lower lung zone which could represent atelectasis and/or pneumonia. Blunting at the right costophrenic angle consistent with small right pleural effusion. No pneumothorax. The cardiomediastinal silhouette is normal. Right upper extremity peripherally inserted central venous catheter (PICC) tip projecting over the region of the right axillary vein. IMPRESSION: 1. Persistent atelectasis and/or pneumonia in the right lower lung zone with new small right pleural effusion. 2. Emphysema. Reviewed, dictated and finalized at location A. KILN OPERATOR IMPRESSION: 1. Persistent atelectasis and/or pneumonia in the right lower lung zone with ne w small right pleural effusion. 2. Emphysema.
--- NOTE | ~2025-02-01 | XR_ITS ---
EXAMINATION: XR chest 1V portable COMPARISON: CT 02/01/2025. HISTORY: COPD exacerbation FINDINGS: There are scattered bilateral infiltrates more focally in the right lower lobe. There are bilateral lung nodules noted the largest left upper lobe 1.1 x 1 cm, the largest right lower lobe 1 x 1 cm, please refer to the CT chest obtained. No pneumothorax. Heart is normal size. Mediastinal and hilar contours are within normal limits. Bony thorax no acute abnormality. Miscellaneous: None Impression: 1. Probable bilateral pneumonia. Lung nodule detailed above Reviewed, dictated and finalized at location P. AL TRAINING AIDE Impression: 1. Probable bilateral pneumonia. Lung nodule detailed above
--- NOTE | ~2025-02-01 | XR_ITS ---
Examination: XR chest 1V portable Clinical History: dyspnea Comparison: 10/24/2024 Technique: Portable AP Findings: Heart size normal. Probable small right pleural effusion. Emphysema and hyperinflation. No acute bony abnormality. IMPRESSION: 1. No acute cardiopulmonary findings given portable technique. 2. Probable small chronic right pleural effusion. Reviewed, dictated and finalized at location R. ATTENDANT
--- NOTE | ~2025-02-01 | CT_ITS ---
EXAMINATION: CT diagnostic chest wo aleksandra, 02/01/2025 10:00 HARDBOARD FACTORY WORKER HISTORY: Dyspnea, flu 2 weeks ago COMPARISON: No comparisons available. TECHNIQUE: CT scan of the chest was performed without IV contrast. One or more of the following dose reduction techniques were used: automated exposure control, adjustment of the mA and/or kV according to patient size, use of iterative reconstruction technique. FINDINGS: No significant coronary calcification is present ([id number]) LUNGS: Trace left pleural effusion. Trace right pleural effusion which appears slightly complex with thickening of the right pleural membrane noted posteriorly. There is a large calcified granuloma in the right lower leg. No tracheomalacia. No bronchiectasis. Moderate emphysematous changes. Minimal pul monary fibrotic changes. No significant honeycombing is identified. Within the left upper lobe anteriorly there is a soft tissue nodule measuring 9 x 9 mm. Right basilar atelectasis is noted with small infiltrates in the right lower lobe with associated bronchial wall thickening. HEART AND PERICARDIUM: Within normal limits. AORTA: Normal caliber aorta. ADENOPATHY/MEDIASTINUM: Calcified subcarinal lymph nodes are noted. LIMITED VIEWS OF THE ABDOMEN: Moderate to severe hepatic steatosis. Calcified splenic granulomas noted. OSSEOUS STRUCTURES: There are healing right-sided rib fractures noted. OVERLYING SOFT TISSUES: Unremarkable. THYROID: The thyroid is unremarkable. IMPRESSION: 1. Right lower lobe bronchopneumonia superimposed on chronic lung disease. 2. Left lung nodule concerning for neoplasm. PET CT is recommended Reviewed, dictated and finalized at location P. BOARD FACTORY WORKER
--- NOTE | 2025-02-01 08:09 | ECG_ITS ---
Test Date: 2025-02-01 08:01:23 Measurements Intervals [place] Rate: 103 P: 77 AL: 139 QRS: -43 QRSD: 134 T: -50 QT: 374 QTc: 491 Interpretive Statements SINUS TACHYCARDIA LEFT AXIS DEVIATION [QRS AXIS < -30] INCOMPLETE LEFT BUNDLE BRANCH BLOCK ABNORMAL ECG Compared to ECG 07/29/2024 06:46:11 NO SIGNIFICANT CHANGE Electronically Signed On 02-01-2025 13:21:05 PRESCHOOL EDUCATION DIRECTOR by Simon Taylor M.D.
[2025-02-01 08:30] LABS: Hematocrit 34.7 % (37.0-47.0); Hemoglobin 11.3 g/dL (12.0-15.0); Immature Granulocyte Percent A 0.5 % (0-0.5); Lymphocytes Absolute Auto 0.82 K/mm3 (0.9-3.2); Mean Corpuscular HGB Conc 32.6 g/dl (32-36); Mean Corpuscular Hemoglobin 34.3 pg (26-34); Mean Corpuscular Volume 105.5 fl (80-100); Nucleated Red Blood Cells Absolute Auto 0.000 K/mm3 (0.0-0.012); Nucleated Red Blood Cells Perc 0.0 % (0.0-0.2); Platelet Count Result 435 k/mm3 (150-375); Red Blood Count 3.29 M/mm3 (4.2-5.4); White Blood Count 8.6 K/mm3 (4.5-10.0)
[2025-02-01] MEDS: ASPIRIN 81 MG CHEWABLE TABLET 324 MG PO (08:30)
--- NOTE | 2025-02-01 08:34 | PC.NURSE ---
RT at bedside for ABG and breathing tx
[2025-02-01 08:40] LABS: Alanine Aminotransferase 249 U/L (6-35); Albumin Level 3.8 g/dL (3.5-5.1); Alkaline Phosphatase 74 U/L (38-126); Anion Gap 9 mmol/L (4-12); Aspartate Amino Transferase 169 U/L (14-36); Bilirubin,Total 1.0 mg/dL (0.2-1.3); Blood Urea Nitrogen 18 mg/dL (7-17); Calcium 8.9 mg/dL (8.4-10.2); Carbon Dioxide 27 mmol/L (22-30); Chloride 95 mmol/L (98-107); Estimated Glomerular Filt Rate > 60; Glucose 90 mg/dL (65-110); Lipase 22 U/L (23-300); Potassium 4.1 mmol/L (3.4-5.0); Sodium 131 mmol/L (137-145); Total Protein 6.6 g/dL (6.3-8.2)
[2025-02-01] MEDS: IPRATROPIUM 0.5 MG/ALBUTEROL SULFATE 2.5 MG (BASE) AMPUL.NEB 3 ML 12 ML INHALATION (08:42)
[2025-02-01 08:47] LABS: Anisocytosis Occasional; Macrocytosis Occasional (NORMAL); Ovalocytes Occasional; Schistocytes Occasional
[2025-02-01 08:49] LABS: Fractional Inspired Oxygen 21 %; HCO3 ABG 21.3 mEq/l (22.0-26.0); PCO2 ABG 31.4 mmHg (35.0-45.0)
[2025-02-01 08:51] LABS: NT Pro B Type Natriuretic Pept 17700 pg/mL (19.9-100); Troponin I 0.059 ng/mL (0.000-0.034)
[2025-02-01 08:54] LABS: Modified Allen's Test Pass; Site Drawn LEFT RADIAL
[2025-02-01] MEDS: MAGNESIUM SULF 2 GM/WATER 50ML 2 GM/50 ML BAG IVPB (09:11)
--- OUTSIDE RECORDS SUMMARY | 2025-02-01 09:21 | XMS_ITS | Clinical Summary ---
Author Organization [facility] Address [address] [address] Care Team Providers Care Application Lead Name Role Phone Nu Shirley MD Primary Care Provider [phone] Allergies Active Allergy Reactions Criticality Noted Date [...] by mouth daily before breakfast. Active OTHER [place] T[place] Mushroom 2 tablets daily . Active [...] 3 Active fluticasone propionate (FLONASE) 50 mcg/spray [place], Suspension nasal inhaler Administer 2 Sprays in [...] daily. 5 Active naloxone (NARCAN) 4 mg/spray [place], Non-Aerosol EMERGENCY USE ONLY: Administer 1 spray [...] Encounters Date Type Department Care Team Description 01/29/2025 External Device Data [facility] ABSTRACTION Provider, Abstract 01/29/2025 External Device Data [facility] ABSTRACTION Provider, Abstract 01/29/2025 External Device Data [facility] ABSTRACTION Provider, Abstract 01/22/2025 External Device Data [facility] ABSTRACTION Provider, Abstract 12/25/2024 External Device Data [place] ABSTRACTION Provider, Abstract 12/18/2024 External Device Data [facility] ABSTRACTION Provider, Abstract 12/18/2024 External Device Data [facility] ABSTRACTION Provider, Abstract 11/20/2024 External Device Data [facility] ABSTRACTION Provider, Abstract [...] Date Smoking Tobacco: Some Days Cigarettes 0.2 41.8 Started: [birth year]/16/1977; Last attempted to quit: 06/16/2017 Smokeless Tobacco: Never Tobacco Cessation:Ready to Q uit: Not Asked; Counseling Given: Not Answered Comments:occasional cigarette/ 7 cigarettes/week Alcohol Use Standard Drinks/Week Comments Yes 5 (1 standard drink = 0.6 oz pur e alcohol) Feeling Safe Answer Date Recorded Are you in a relationship wi th someone who hurts you emotionally and/or physically? No 07/29/2024 Food Insecurity Answer Date Recorded Patient needs [...] Flex Sig/CT Colonography Q 5 years 1997 RSV VACCINE (60+ or ) (1 - Risk 50-74 years 1-dose series) 2002 ZOSTER VACCINE (1 of 2) 2002 INFLUENZA VACCINE (#1) 2024 BREAST CANCER SCREENING 02/12/2025 02/13/20 24, 08/05/2023, 01/11/2023, Additional history exists OSTEOPOROSIS SCREENING 01/12/2028 3, 01/11/2023, 12/31/2021, Additional history exists Procedures Procedure Name Priority Date/Time Associated Diagnosis Comments MAMMO DIAGNOSTIC UNI LEFT W OR WO CAD Routine 02/13/2024 2:08 PM PUBLIC HEALTH DENTIST from Last 3 Months or Most Recently Relevant to Health Maintenance Results * MAMMO DIAGNOSTIC UNI LEFT W OR WO CAD (02/13/2024 2:08 PM PUBLIC HEALTH DENTIST) Anatomical Region Laterality Modality Breast Left Mammography Suhail Luis MD MAMMO ORDERABLES Final Result from Last 3 Months or Most Recently Relevant to Health Maintenance Insurance AETNA PPO [facility] AETNA PPO MCR Advance Directives For more information, please contact: [phone] * Full Code (Latest Code Status on File) Date Activated Date Inactivated Comments 07/29/2024 12:15 PM 08/09/2024 2:25 PM * Full Code Date Activated Date Inactivated Comments 07/17/2024 6:49 PM 07/26/2024 8:51 PM * Full Code Date Activated Date Inactivated Comments 06/25/2024 8:28 PM 06/29/2024 3:15 PM Care Teams Application Lead Relationship Specialty Start Date End Date Nu Shirley MD [address] [place] [address] PCP - General Family Practice 07/18/23
--- OUTSIDE RECORDS SUMMARY | 2025-02-01 09:21 | XMS_ITS | Clinical Summary ---
Author Organization [facility] Address [address] [place] [address] Phone Care Team Providers Care Rubber Attacher Name Role Phone Stacey Wyatt MD Primary [...] Take by mouth 2 times daily. Active Hooks-3 Fatty Acids (OMEGA-3 FISH OIL PO) Take [...] - PCV) 07/05/2014 07/05/2013 Influenza Immunization (#1) 2024 SARS-COV-2 Immunization ( season) 2024 12/14/2020, 05/22/2020, 05/01/2020 Respiratory Syncytial Virus (RSV) [...] age to complete this topic Insurance MEDICARE [facility] GENER[facility] Care Teams Rubber Attacher Relationship Specialty Start Date End Date Stacey Wyatt MD [address] [place] [address] PCP - General Family Medicine 11/24/17
--- OUTSIDE RECORDS SUMMARY | 2025-02-01 09:21 | XMS_ITS | Encounter Summary ---
Author Organization [facility] Healthcare Address [address] [place] [address] Care Team Providers Care Com Writer Name Role Phone Rafael Ruiz MD Primary Care Provider [phone]- [phone] Stacey Dunlap MD Primary Care Provider [phone]- [phone] Amado Ellis Primary Care Provider [phone] Nu Shirley MD Primary Care Provider [phone] Encounter Details Date Type Department Care Team (Late st Contact Info) Description 06/16/2017 Orders Only [facility] Health Information Management [address] [place] [address] Scanning, Provider Social History Tobacco Use Types Packs/Day Years Used Date Smoking Tobacco: Every Day Alcohol Use Standard Drinks/Week Comments Yes 0 (1 standard drink = 0.6 oz pur e alcohol) Comments Unknown Sex and Gender Information Value Date Recorded Sex Assigned at Not on file 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 Gender Identity Female 08/11/2017 1:49 PM CDT [...] on filedocumented in this encounter Care Teams Com Writer Relationship Specialty Start Date End Date Rafael Ruiz MD [address] [place] [address] PCP - General 11/27/15 10/26/17 Stacey Dunlap MD [address] [place] [address] PCP - General Family Practice 10/27/17 12/16/20 Amado Ellis PA [address] [place] [address] PCP - General Physician Auto Body Customizer 12/17/20 01/13/21 Nu Shirley MD [address] [place] [address] PCP - General Family Medicine 01/14/21 documented as of this encounter
--- OUTSIDE RECORDS SUMMARY | 2025-02-01 09:21 | XMS_ITS ---
Author Organization [facility] Address [address] [facility] [place] [place] [address] Care Team Providers Care Biological Plant Operator Name Role Phone Nu Shirley MD Primary Care Provider [phone] Active Problems Patient Care Coordination No te [...]
--- OUTSIDE RECORDS SUMMARY | 2025-02-01 09:22 | XMS_ITS ---
Author Organization [facility] [address] Address [address] [place] [address] Care Team Providers Care Business Computers Teacher Name Role Phone Nu Shirley MD Primary Care Provider [phone] Active Problems Problem Noted Date Diagnosed Date COPD (chronic obstructive pulmonary disease) Atypical hyperplasia of left breast 11/28/2017 Lobular carcinoma in situ (LCIS) of left breast 11/28/2017 Abnormal ultrasound of breast 09/20/2017 Presence of stent in coronary artery 06/23/2017 Tobacco abuse 06/23/2017 Essential hypertension 06/23/2017 History of non-ST elevation myocardial infarctio n (NSTEMI) 06/23/2017 Coronary artery disease invo lving [place] coronary artery of [place] heart without angina pectoris 06/23/2017 Concussion with [...] consider Prolia. She should continue calcium of 9754-1906 mg per day through dietary intake or [...] this time. She should continue calcium of 9453-5821 mg per day through dietary intake or [...] has improved. She should continue calcium of 6948-1272 mg per day through dietary intake or supplements and vitamin D 2000 IU per day get IV Reclast again Assessment & Plan (11/23/2018 4:00 PM CDT): In summary, Ms. GARSIA has osteoporosis that is likely multifactorial secondary to tobacco use and family history of osteoporosis and advanced age. Her bone density has improved. She should continue calcium of 0318-8925 mg per day through dietary intake or supplements and vitamin D 2000 IU per day get IV Reclast again. Assessment & Plan (10/27/2017 12:06 PM CDT): In summary, Ms. GARSIA has osteoporosis that is likely multifactorial secondary to tobacco use and family history of osteoporosis and advanced age. She's being treated with calcium of 9402-2519 mg per day through dietary intake or [...] Lifetime Dose Automatic Entry Manual Entr y Fluoro Time 2.5 minutes 0 minutes 2.5 minutes Air kerma at the reference point (Ka,r) 105 mGy 0 mGy 105 mGy
--- OUTSIDE RECORDS SUMMARY | 2025-02-01 09:22 | XMS_ITS | Encounter Summary ---
Author Organization [facility] Address [address] [place] [address] Care Team Providers Care Network Operations Manager Name Role Phone Rafael Ruiz MD Primary Care Provider [phone] Encounter Details Date Type Department Care Team (Late st Contact Info) Description 12/12/2019 Lab Requisition [facility] Lab [address] [place] [address] Mireya Shahid MD [address] [facility] [address] [place] [address] Social History Tobacco Use Types Packs/Day Years Used Date Smoking Tobacco: Every Day Cigarettes Smokeless Tobacco: Never Alcohol Use Standard Drinks/Week Comments Yes 0.8 (1 standard drink = 0.6 oz p ure alcohol) Comments Unknown Sex and Gender Information Value Date Recorded Sex Assigned at Not on file 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 Gender Identity Not on file Sexual Orientation Not on file documented as of this encounter Plan of Treatment Not on file documented as of this encounter Procedures Procedure Name Priority Date/Time Associated Diagnosis Comments DERMATOPATHOLOGY Routine 12/11/2019 12:0 0 AM CDT documented in this encounter Results * DERMATOPATHOLOGY (12/11/2019 12:00 AM CDT) Case Report Dermatopathology Report Case: [id number] Authorizing Provider: Mireya Shahid MD Collected: 12/11/2019 12:00 AM Ordering Location: [facility] Lab Received: 12/12/2019 05:52 AM Pathologist: La Washington MD Specimen: Skin, left scalp 0 5:41 PM CDT DERMATOPATHOLOGY LABORATORY Final Diagnosis Specimen A. SKIN, left scalp: PSORIASIFORM DERMATITIS (L44.8) (see microscopic description and comment) 0 5:41 PM CDT DERMATOPATHOLOGY LABORATORY at 1741 CDT Clinical History R/O PSO, Eczema, CTD drug [...] characteristic determined by the Dermatopathology Laboratory at [facility], directed by Dr. Sabina Washington. These tests need not be, and therefore are not, approved by the [place] Food and Drug Administration. The tests are used for clinical purposes. Billing Codes Specimen Charges Stain Charges 88754 1 93000 1 0 5:41 PM CDT DERMATOPATHOLOGY LABORATORY Embedded Images 0 5:41 PM CDT DERMATOPATHOLOGY LABORATORY Pathology/Cytolog y TISSUE SPECIMEN FROM SKIN / Unknown 12/11/2019 12/12/2019 5:52 AM CDT Mireya Shahid MD LAB - PATHOLOGY/CYTOLOGY ORD ERABLES Final Result DERMATOPATHOLOGY LABORATORY [facility] - Department of Dermatology [facility] Medicine [address] [place] [address], [address] [phone] documented in this encounter Visit Diagnoses Not on filedocumented in this encounter Care Teams Network Operations Manager Relationship Specialty Start Date End Date Rafael Ruiz MD [place] [place] [address] PCP - General 08/19/14 documented as of this encounter
--- OUTSIDE RECORDS SUMMARY | 2025-02-01 09:22 | XMS_ITS | Clinical Summary ---
Author Organization [facility] [address] Address [address] [place] [address] Care Team Providers Care Sales Agent Name Role Phone Nu Shirley MD Primary Care Provider [phone] Allergies Active Allergy Reactions Criticality Noted Date [...] mg total) by mouth daily Active zoledronic ixoe-zblfbdxq-n ater (RECLAST) 5 mg/100 mL piggyback Active [...] (NSTEMI) 06/23/2017 Coronary artery disease invo lving [place] coronary artery of [place] heart without angina pectoris 06/23/2017 Concussion with [...] consider Prolia. She should continue calcium of 1876-6773 mg per day through dietary intake or [...] this time. She should continue calcium of 5822-0009 mg per day through dietary intake or [...] has improved. She should continue calcium of 0023-4285 mg per day through dietary intake or supplements and vitamin D 2000 IU per day get IV Reclast again Assessment & Plan (11/23/2018 4:00 PM CDT): In summary, Ms. GARSIA has osteoporosis that is likely multifactorial secondary to tobacco use and family history of osteoporosis and advanced age. Her bone density has improved. She should continue calcium of 3139-9269 mg per day through dietary intake or supplements and vitamin D 2000 IU per day get IV Reclast again. Assessment & Plan (10/27/2017 12:06 PM CDT): In summary, Ms. GARSIA has osteoporosis that is likely multifactorial secondary to tobacco use and family history of osteoporosis and advanced age. 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 Gender Identity Female 08/11/2017 1:49 PM CDT Sexual Orientation Not on file Last Filed Vital Signs Vital Sign Reading Time Taken Comments Blood Pressure 127/65 03/10/2024 10:49 AM KNIFE OPERATOR Pulse 94 03/10/2024 10:49 AM KNIFE OPERATOR Temperature 36.7 C (98.1 F) 03/10/2024 10:49 AM KNIFE OPERATOR Respiratory Rate 20 03/10/2024 10:49 AM KNIFE OPERATOR Oxygen Saturation 97% 03/10/2024 10:49 AM KNIFE OPERATOR Inhaled Oxygen Concentration - - Weight 60.8 kg (134 lb 1.6 oz) 03/10/2024 10:49 AM KNIFE OPERATOR Height 165.1 cm (5' 5) 03/10/2024 10:49 AM KNIFE OPERATOR Body Mass Index 22.32 03/10/2024 10:49 AM KNIFE OPERATOR Plan of Treatment Health Maintenance Due [...] Completed 07/05/2023 Medical Devices Implanted Type Area Office Equipment Technician Device Identifier Shelf Expiration Date Model / Serial / Lot [employer] [facility] Device Closure Vascade Od5 Fr Femoral Artery [id number] - [id number] Implanted:Qty: 1 on 03/31/2023 by Miguel Mccloud MD at [facility] [employer] [facility] 12/02/2024 [id number] / / [id number] Procedures Procedure Name Priority Date/Time Associated Diagnosis Comments HEPATITIS PANEL, ACUTE Routine 07/05/2023 9:55 AM CDT Acid phosphatase elevated Fatigue Hypopotassemia DEXA TBS AXIAL SKELETON BONE DENSITY 1 OR MORE SITES Schedule Routine, Read Routine (OP Routine) 01/11/2023 10:31 AM KNIFE OPERATOR Age-related osteoporosis without current pathological fracture [...] on 19. Hep C Ab Nonreactive Nonreactive [facility] Comment: Interpretive Data Nonreactive: Antibodies to [...] revised on 2019. HepBsAg Nonreactive Nonreactive [facility] Blood Venous blood specimen / Unknown 07/05/2023 9:55 AM CDT 07/05/2023 3:12 PM CDT Narrative [facility] - 07/05/2023 5:04 PM CDT Fax results to Dr Nu Shirley [phone] us Nu Shirley MD LAB MICROBIOLOGY - GENERAL ORDCee UMANZOR Final Result [facility] [address] [place] [address] * Dexa TBS Axial Skeleton Bone Density 1 or more sites (01/11/2023 10:31 AM KNIFE OPERATOR) Anatomical Region Laterality Modality Wrist, Body N/A Radiographic Batsheva ging Narrative 01/11/2023 4:22 PM KNIFE OPERATOR Patient Name: Oralia Garsia Date of : 1950 Date of scan: 01/11/2023 Bone mineral density was performed on a [employer] Discovery Densitometer. Based on machine cross-calibration and [...] by the International Society of Clinical Densitometry. [id number] Salud John MD IMG DXA PROCEDURES Final Re sult from Last 3 Months or Most Recently Relevant to Health Maintenance Insurance [employer] MEDICARE [employer] MEDICARE AETNA MEDICARE Care Teams Sales Agent Relationship Specialty Start Date End Date Nu Shirley MD PCP - General Family Medicine 01/14/21
--- OUTSIDE RECORDS SUMMARY | 2025-02-01 09:22 | XMS_ITS | Clinical Summary ---
Author Organization [facility] Address [address] [place] [address] Care Team Providers Care Driver Engineer Name Role Phone Rafael Ruiz MD Primary Care Provider [phone] Source Comments [facility] [facility],non-owned Affiliates and Associated Physician Practices is amultiple site organization consisting of ambulatory clinics and hospital sitesin [place], [place], [place] and [place]. This disclosure is being madepursuant to the Care Everywhere program and may not contain all information available regarding this patient. 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 Gender Identity Not on file Sexual Orientation [...] 11:20 AM CDT Height 165.1 cm (5' 5) 09/22/2015 11:20 AM CDT Body Mass Index [...] SCREENING 1950 LIPID TESTING 1950 MAMMOGRAM 1950 HEPATITIS C SCREENING 10/02/1970 DTAP/TDAP/TD VACCINES (1 - Tdap) 10/07/1971 PNEUMOCOCCAL VACCINE 50+ (1 of 2 - PCV) 10/07/1971 ZOSTER VACCINE (1 of 2) 2002 DEPRESSION SCREENING 03/07/2024 MEDICARE AWV CALENDAR YEAR 2024 COVID-19 VACCINE (1 - 2024-2 6 season) 2024 INFLUENZA VACCINE (#1) 2024 Respiratory Syncytial Virus (RSV) Vaccine Pt: [...] age to complete this topic Insurance [facility] Address: [address] [place] [address] [place] [address] AETNA AETNA MEDICARE ADV Care Teams Driver Engineer Relationship Specialty Start Date End Date Rafael Ruiz MD [address] [place] [address] PCP - General 08/19/14
--- OUTSIDE RECORDS SUMMARY | 2025-02-01 09:22 | XMS_ITS | Encounter Summary ---
Author Organization [facility] Healthcare Address [address] [place] [address] Care Team Providers Care Family Protection Specialist Name Role Phone Stacey Dunlap MD Primary Care Provider [phone] Amado Ellis Primary Care Provider [phone] Nu Shirley MD Primary Care Provider [phone] Encounter Details Date Type Department Care Team (Late st Contact Info) Description 12/12/2018 Orders Only [facility] Health Information Management [address] [place] [address] Scanning, Provider Social History Tobacco Use Types Packs/Day Years Used Date Smoking Tobacco: Light Smoker Smokeless Tobacco: Never Alcohol Use Standard Drinks/Week Comments Yes 0 (1 standard drink = 0.6 oz pur e alcohol) social Comments Unknown Sex and Gender Information Value Date Recorded Sex Assigned at Not on file 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
--- OUTSIDE RECORDS SUMMARY | 2025-02-01 09:22 | XMS_ITS | Clinical Summary ---
Author Organization [facility] Address [address] [place] [address] Care Team Providers Care Technical Intern Name Role Phone Unavailable Primary Care Provider [...] 2002 Dexa Scan (General) 2017 COVID-19 Vaccine (2024-2 6 season) 2024 Influenza Adult (#1) 2024 RSV Immunization or 60+ Years (1 - 1-dose 75+ series) 10/07/2027 Hepatitis A Vaccines Aged Out No long er eligible based on patient's age to complete this topic Meningococcal B Vaccine Aged Out No l onger eligible based on patient's age to complete this topic Meningococcal Vaccine Aged Out No allan neri eligible based on patient's age to complete this topic RSV Immunizations Under 20 Months Aged Out No longer eligible based on patient's age to complete this topic
--- OUTSIDE RECORDS SUMMARY | 2025-02-01 09:22 | XMS_ITS | Encounter Summary ---
Author Organization [facility] Healthcare Address [address] [place] [address] Care Team Providers Care Cylinder Inspector Name Role Phone Rafael Ruiz MD Primary Care Provider +- [phone] Stacey Dunlap MD Primary Care Provider + [phone] Amado Ellis Primary Care Provider [phone] Nu Shirley MD Primary Care Provider [phone] Encounter Details Date Type Department Care Team (Late st Contact Info) Description 07/02/2017 Orders Only [facility] Health Information Management [address] [place] [address] Scanning, Provider Social History Tobacco Use Types Packs/Day Years Used Date Smoking Tobacco: Light Smoker Smokeless Tobacco: Never Alcohol Use Standard Drinks/Week Comments Yes 0 (1 standard drink = 0.6 oz pur e alcohol) social Comments Unknown Sex and Gender Information Value Date Recorded Sex Assigned at Not on file 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 Gender Identity Female 08/11/2017 1:49 PM CDT [...] on filedocumented in this encounter Care Teams Cylinder Inspector Relationship Specialty Start Date End Date Rafael Ruiz MD [address] [facility] [place] [address] PCP - General 11/27/15 10/26/17 Stacey Dunlap MD [address] [facility] [place] [address] PCP - General Family Practice 10/27/17 12/16/20 Amado Ellis, PA [address] [place] [address] PCP - General Physician Laundry Supervisor 12/17/20 01/13/21 Nu Shirley MD [address] [place], [place] [id number] PCP - General Family Medicine 01/14/21 documented as of this encounter
--- OUTSIDE RECORDS SUMMARY | 2025-02-01 09:22 | XMS_ITS | Encounter Summary ---
Author Organization [facility] Healthcare Address [address] [place] [address] Care Team Providers Care Recycling Sorter Name Role Phone Rafael Ruiz MD Primary Care Provider [phone]- [phone] Stacey Dunlap MD Primary Care Provider [phone]- [phone] Amado Ellis Primary Care Provider [phone] Nu Shirley MD Primary Care Provider [phone] Encounter Details Date Type Department Care Team (Late st Contact Info) Description 06/09/2017 Orders Only [facility] Health Information Management [address] [place] [address] Scanning, Provider Social History Tobacco Use Types Packs/Day Years Used Date Smoking Tobacco: Every Day Alcohol Use Standard Drinks/Week Comments Yes 0 (1 standard drink = 0.6 oz pur e alcohol) Comments Unknown Sex and Gender Information Value Date Recorded Sex Assigned at Not on file 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 Gender Identity Female 08/11/2017 1:49 PM CDT [...] on filedocumented in this encounter Care Teams Recycling Sorter Relationship Specialty Start Date End Date Rafael Ruiz MD [address] [place] [address] PCP - General 11/27/15 10/26/17 Stacey Dunlap MD [address] [place] [address] PCP - General Family Practice 10/27/17 12/16/20 Amado Ellis PA [address] [place] [address] PCP - General Physician Apparel Sales Leader 12/17/20 01/13/21 Nu Shirley MD [address] [place] [address] PCP - General Family Medicine 01/14/21 documented as of this encounter
[2025-02-01 09:42] LABS: INR 1.1; Prothrombin Time 13.8 Seconds (11.1-14.7)
[2025-02-01 09:43] LABS: Partial Thromboplastin Time 26.7 Seconds (22.3-36.8)
--- NOTE | 2025-02-01 09:53 | ED.GENADULT ---
HPI - General Adult General Chief complaint: Chest Pain Stated complaint: CP/SOB Time Seen by Provider: 02/01/25 08:07 History of Present Illness HPI narrative: This is a 74-year-old female history of coronary artery disease, COPD and CHF presenting for chest pain difficulty breathing. She has been having shortness breath for last several days. During this time she has been having intermittent episodes of sharp substernal chest pain last for 1-2 seconds at a time before going away. She is not currently experiencing any chest pain. Patient denies fevers productive cough. No lower extremity edema. She has been taking medications as directed. Denies sick contacts at home. Patient states she had the flu 2 weeks ago. Related Data Home Medications ?Medication ?Instructions ?Recorded ?Confirmed ?Last Taken ?Type aspirin 81 mg tablet,delayed 81 mg PO DAILY 02/19/19 01/08/25 06/02/20 History release tacrolimus 0.1 % topical ointment 1 applic topical BID PRN PSORIASIS 03/20/20 01/08/25 06/02/20 History triamcinolone acetonide 0.1 % 1 applic topical BID PRN PSORIASIS 03/20/20 01/08/25 06/02/20 History topical cream sacubitril 24 mg-valsartan 26 mg 1 tablet PO BID 02/09/23 01/08/25 Unknown History tablet (Entresto) fluticasone propionate 50 1 spray intranasal BID PRN nasal 06/11/24 01/08/25 Unknown History mcg/actuation nasal congestion spray,suspension tramadol 50 mg tablet 50 mg PO Q6H PRN pain 07/15/24 01/08/25 Unknown History atorvastatin 40 mg tablet 40 mg PO DAILY 08/22/24 01/08/25 Unknown History spironolactone 25 mg tablet 12.5 mg PO DAILY 08/22/24 01/08/25 Unknown History Allergies Allergy/AdvReac Type Severity Reaction Status Date / Time roflumilast (From Dalires) Allergy Unknown Hives Verified 02/01/25 08:06 morphine AdvReac Unknown Nausea Verified 02/01/25 08:06 [facility] Past Medical History Medical History Loculated empyema History of rib fracture Nodule of right lung Elevated liver enzymes Ischemic cardiomyopathy ECHO 05/24 40% EF COPD (chronic obstructive pulmonary disease) Hyperlipidemia Primary hypertension Benign hypertension 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 Osteoporosis without current pathological fracture Other emphysema Surgical History Surgical History History of chest tube placement S/P thoracentesis H/O breast surgery History of heart artery stent 2017 Family History Family History Sibling Hypertension Family history of malignant neoplasm of breast in first degree relative Family history of dementia Father Family history of cardiovascular disease Cerebrovascular accident Mother Family history of cardiovascular disease Family history of malignant neoplasm of urinary bladder Social History Social History Smoking packs per day: 0.5 Smoking cigarettes per day: 10.0 Years smoked: 50 Smoking pack-years: 25.00 Smoking status: Former smoker Tobacco type: cigarettes Second hand tobacco smoke exposure: No Alcohol intake: former Drinks per week: 4 Substance use: never Substance use type: does not use Last use: 06/14/2024 Lack of Transportation: No Lack of Food: Never True Current Housing: I Have Housing Concerned About Future Housing: No Difficulty Paying Gas/Electric Bills: No Difficulty Paying for Meds: No Currently Unemployed: No Education: High School Diploma/GED Difficulty w/ Childcare or Family Care: No Living arrangements: alone Gender identity (if verbalized by the patient): Female Spiritual care concerns: No Exam Narrative: APPEARANCE: No apparent distress. Head: atraumatic. EYES: EOMI, NOSE: Atraumatic NECK: Trachea midline RESPIRATORY: Decreased air entry in all [place] with wheezing CARDIOVASCULAR: Tachycardic, regular ABDOMINAL: Non-distended MUSCULOSKELETAl: No obvious deformities NEURO: Alert. Moving 4/4 extremities SKIN:: Warm, dry. Normal color PSYCHIATRIC: Normal affect Course Vital Signs Vital signs: Vital Signs Temperature 98.4 F 02/01/25 07:59 Pulse Rate 103 H 02/01/25 07:59 Respiratory Rate 22 H 02/01/25 07:59 Blood Pressure 146/85 H 02/01/25 07:59 Pulse Oximetry 100 02/01/25 07:59 Oxygen Delivery Room Air 02/01/25 07:59 Temperature 98.4 F 02/01/25 07:59 Pulse Rate 123 H 02/01/25 10:47 Respiratory Rate 28 H 02/01/25 10:47 Blood Pressure 127/99 H 02/01/25 09:31 Pulse Oximetry 99 02/01/25 10:47 Oxygen Delivery Room Air 02/01/25 08:34 Medical Decision Making MDM Narrative Medical decision making narrative: -Course: 74-year-old female presenting with difficulty breathing and chest pain. Chest pain was lasting for 1-2 seconds at a time, and was sharp. More consistent with pleurisy then ACS. She is currently asymptomatic. Patient had flu 2 weeks ago. Differential includes pneumonia, COPD exacerbation, pleurisy, ACS, PE less likely as she is on anticoagulation. On exam she has decreased air entry in all larson and wheezing. Patient given an hour long DuoNeb treatment magnesium and steroids. Chest x-ray was clear, however high suspicion for underlying pneumonia. CT chest showed right bronchopulmonary pneumonia. Patient started on ceftriaxone doxy and vanco given her [place] [address] but she does not appear overtly fluid overloaded and is clinically dry. She has a history of heart failure with reduced ejection fraction so she will be given cautious fluids 150 cc an hour. Fluid status will be closely monitored. Troponin is elevated at 0.059. Patient has chronic elevations in the past. She does not have active chest pain in this likely represents demand ischemia. EKG shows non specific ST changes. Will continue to monitor. She will be placed in the IMU for close monitoring. Blood cultures and lactic have been added and will be followed by the primary team. Vital Signs Vital Signs: Vital Signs Temperature 98.4 F 02/01/25 07:59 Pulse Rate 103 H 02/01/25 07:59 Respiratory Rate 22 H 02/01/25 07:59 Blood Pressure 146/85 H 02/01/25 07:59 Pulse Oximetry 100 02/01/25 07:59 Oxygen Delivery Room Air 02/01/25 07:59 Temperature 98.4 F 02/01/25 07:59 Pulse Rate 123 H 02/01/25 10:47 Respiratory Rate 28 H 02/01/25 10:47 Blood Pressure 127/99 H 02/01/25 09:31 Pulse Oximetry 99 02/01/25 10:47 Oxygen Delivery Room Air 02/01/25 08:34 Lab Data 02/01/25 08:21 02/01/25 08:21 Labs: Lab Results 02/01/25 02/01/25 Range/Units 08:21 09:27 WBC 8.6 (4.5-10.0) K/mm3 RBC 3.29 L (4.2-5.4) M/mm3 Hgb 11.3 L (12.0-15.0) g/dL Hct 34.7 L (37.0-47.0) % MCV 105.5 H (80-100) fl MCH 34.3 H (26-34) pg MCHC 32.6 (32-36) g/dl RDW 15.2 H (11.5-14.5) % Plt Count 435 H (150-375) k/mm3 MPV 9.8 (7.4-10.4) fl Immature Gran % (Auto) 0.5 (0-0.5) % Neut % (Auto) 79.0 H (45.5-73.1) % Lymph % (Auto) 9.6 L (18.3-44.2) % [place] % (Auto) 10.7 H (2.6-8.5) % Eos % (Auto) 0.0 (0-4.4) % Baso % (Auto) 0.2 (0.2-1.2) % Lymph # (Auto) 0.82 L (0.9-3.2) K/mm3 [place] # (Auto) 0.9 H (0.1-0.6) K/mm3 Eos # (Auto) 0.0 (0-0.3) K/mm3 Baso # (Auto) 0.0 (0.0-0.1) K/mm3 Abs Immat Gran (auto) 0.04 H (0.00-0.031) K/mm3 Absolute Neuts (auto) 6.8 H (1.3-6.7) K/mm3 Absolute Nucleated RBC 0.000 (0.0-0.012) K/mm3 Band Neutrophils % Not Reportable Nucleated RBC % 0.0 (0.0-0.2) % Platelet Estimate Increased (Adequate) Anisocytosis Occasional Macrocytosis Occasional (NORMAL) Ovalocytes Occasional Schistocytes Occasional PT 13.8 (11.1-14.7) Seconds INR 1.1 APTT 26.7 (22.3-36.8) Seconds Sodium 131 L (137-145) mmol/L Potassium 4.1 (3.4-5.0) mmol/L Chloride 95 L (98-107) mmol/L Carbon Dioxide 27 (22-30) mmol/L Anion Gap 9 (4-12) mmol/L BUN 18 H (7-17) mg/dL Creatinine 0.48 L (0.7-1.0) mg/dL Estim Creat Clear Calc Not Reportable Estimated GFR > 60 (59 - ) Glucose 90 (65-110) mg/dL Calcium 8.9 (8.4-10.2) mg/dL Total Bilirubin 1.0 (0.2-1.3) mg/dL AST 169 H (14-36) U/L ALT 249 H (6-35) U/L Alkaline Phosphatase 74 (38-126) U/L Troponin I 0.059 H* (0.000-0.034) ng/mL NT-Pro-B Natriuret Pep 55190 H (19.9-100) pg/mL Total Protein 6.6 (6.3-8.2) g/dL Albumin 3.8 (3.5-5.1) g/dL Lipase 22 L (23-300) U/L ABG Data ABG results: 02/01/25 08:40 ABG pO2 Not Reportable ABG PO2/FiO2 Ratio Not Reportable ABG O2 Saturation Not Reportable ABG O2 Content Not Reportable A-a Gradient Not Reportable O2 Liters/Min Not Reportable Discharge Plan Discharge Clinical Impression: Pneumonia, Elevated troponin, COPD (chronic obstructive pulmonary disease) Patient Disposition: Still a Patient Condition: Guarded Prognosis Patient Language: Grenadian Prescriptions: No Action Entresto 24-26 mg tablet 1 tablet PO BID ferrous sulfate [FeroSul] 325 mg (65 mg iron) tablet 325 mg PO BID Qty: 180 0RF aspirin 81 mg tablet,delayed release (DR/EC) 81 mg PO DAILY tacrolimus 0.1 % ointment 1 applic topical BID PRN (Reason: PSORIASIS) Rx Instructions: plaque psoriasis triamcinolone acetonide 0.1 % cream 1 applic topical BID PRN (Reason: PSORIASIS) Rx Instructions: for plaque psoriasis ipratropium bromide 21 mcg (0.03 %) spray,non-aerosol See Rx Instructions .ROUTE .COMPLEX Qty: 30 5RF Dose Instruction: USE 2 SPRAY(S) IN EACH NOSTRIL THREE TIMES DAILY Rx Instructions: USE 2 SPRAY(S) IN EACH NOSTRIL THREE TIMES DAILY thiamine HCl (vitamin B1) 100 mg tablet 100 mg PO DAILY Qty: 100 3RF clobetasol 0.05 % cream 1 applic topical DAILY PRN (Reason: itching) Qty: 60 0RF Rx Instructions: plaque psoriasis pregabalin [Lyrica] 100 mg capsule 100 mg PO BID Qty: 30 3RF fluticasone propionate 50 mcg/actuation spray,suspension 1 spray intranasal BID PRN (Reason: nasal congestion) Rx Instructions: administer into each nostril tramadol 50 mg tablet 50 mg PO Q6H PRN (Reason: pain) (DME) Space Chamber Spacer See Rx Instructions .ROUTE .COMPLEX Qty: 1 0RF Dose Instruction: USE DIRECTED Rx Instructions: USE DIRECTED omeprazole 20 mg tablet,delayed release (DR/EC) 20 mg PO DAILY Qty: 90 3RF atorvastatin 40 mg tablet 40 mg PO DAILY cholecalciferol (vitamin D3) 250 mcg (10,000 unit) capsule 250 mcg PO DAILY Qty: 90 0RF cyanocobalamin (vitamin B-12) 1,000 mcg tablet 1,000 mcg PO DAILY Qty: 100 0RF furosemide 20 mg tablet 20 mg PO QAM Qty: 30 0RF metoprolol succinate 25 mg tablet extended release 24 hr 25 mg PO DAILY Qty: 30 6RF spironolactone 25 mg tablet 12.5 mg PO DAILY Breztri Aerosphere 160-9-4.8 mcg/actuation HFA aerosol inhaler See Rx Instructions .ROUTE .COMPLEX Qty: 10.7 11RF Dose Instruction: INHALE 2 PUFFS IN THE MORNING AND IN THE EVENING RINSE AND SPIT AFTER EACH USE WITH A SPACER Rx Instructions: INHALE 2 PUFFS IN THE MORNING AND IN THE EVENING RINSE AND SPIT AFTER EACH USE WITH A SPACER albuterol sulfate 90 mcg/actuation HFA aerosol inhaler 1 inh INHALATION Q4H Qty: 8.5 3RF Eliquis 5 mg tablet 5 mg PO BID Qty: 180 1RF ezetimibe [Zetia] 10 mg tablet 10 mg PO DAILY Qty: 30 0RF triamcinolone acetonide 0.1 % lotion See Rx Instructions .ROUTE .COMPLEX Qty: 60 0RF Dose Instruction: APPLY TOPICALLY THREE TIMES DAILY Rx Instructions: APPLY TOPICALLY THREE TIMES DAILY Follow-up/Referrals: Armando Wright MD [Primary Care Provider, Family Practice]
--- NOTE | 2025-02-01 10:16 | PC.NURSE ---
Patient continues to express improvement in WOB. Pt resting more comfortably. Aware of plan of care for CT and admission.
--- NOTE | 2025-02-01 11:39 | ECG_ITS ---
Test Date: 2025-02-01 11:54:30 Measurements Intervals [place] Rate: 96 P: 0 FL: 0 QRS: -47 QRSD: 134 T: -71 QT: 394 QTc: 499 Interpretive Statements ATRIAL FIBRILLATION INCOMPLETE LEFT BUNDLE BRANCH BLOCK ABNORMAL ECG Compared to ECG 02/01/2025 08:01:23 NO DIFFERENCE Electronically Signed On 02-01-2025 13:27:51 RNP by Simon Tyalor M.D.
[2025-02-01] MEDS: LACTATED RINGERS 1,000 ML 150 ML IV CONT (11:48)
[2025-02-01] MEDS: cefTRIAXone 1 GM in SODIUM CHLORIDE 0.9% IV 50 ML 100 ML IVPB (11:50)
--- NOTE | 2025-02-01 12:02 | PC.NURSE ---
BC x2 and lactic obtained- sent to lab Pt medicated as per may with LR and abx. Uncomfortable in stretcher but breathing remains improved.
--- NOTE | 2025-02-01 12:03 | WPCEDHO ---
ED Hand Off Checklist All vitals saved: Yes IV Site documented: Yes All med administrations documented: Rocephin & LR infusing - vanc ready Triage Note Triage Note 74yo F BIBEMS c/o ongoing SOB and 02/01/25 07:59 CP x2 days. Hx COPD and CHF. 96% RA upon EMS arrival, given duoneb en route - 99% RA upon arrival here. Reports had the flu 2 weeks ago. 12 lead WNL, HR 110s with runs of tachycardia in 160s, prior to duoneb. Increased WOB. Allergies roflumilast (From Dalires) Allergy (Unknown, Verified 02/01/25 08:06) Hives morphine Adverse Reaction (Unknown, Verified 02/01/25 08:06) Nausea Family History (Last Reviewed 02/01/25 @ 09:56 by Rafael Galvez MD) Sibling Hypertension Family history of malignant neoplasm of breast in first degree relative Family history of dementia Father Family history of cardiovascular disease Cerebrovascular accident Mother Family history of cardiovascular disease Family history of malignant neoplasm of urinary bladder Active Medications including assessments/comments Lactated Ringer's (Lr - Lactated Ringers Iv) 1,000 mls @ 150 mls/hr IV CONT .Q6H40M STA Stop: 02/01/25 18:02 Last Admin: 02/01/25 11:48 Dose: 150 mls/hr Documented By: VITOR Infusion/Titration Document 02/01/25 11:48 VITOR (Rec: 02/01/25 11:49 VITOR [id number]) Intake IV Site Peripheral Access Left Forearm Container Volume 1,000 Waste Amount 0 Dosing Infusion Rate 150 Cumulative Dose Not Applicable Increase/Decrease Started Elapsed Time Elapsed Time ( 0m minutes) Administered/Completed Medications Discontinued Medications Albuterol/Ipratropium (Ipratropium 0.5 Mg/Albuterol Sulfate 2.5 Mg (Base) Ampul.Neb 3 Ml) 12 ml INHALATION ONCE STA Stop: 02/01/25 08:22 Last Admin: 02/01/25 08:42 Dose: 12 ml Documented By: IRINA Aspirin (Aspirin 81 Mg Chewable Tablet) 324 mg PO ONCE STA Stop: 02/01/25 08:10 Last Admin: 02/01/25 08:30 Dose: 324 mg Documented By: VITOR Magnesium Sulfate (Magnesium Sulf 2 Gm/Water 50ml) 2 gm in 50 mls @ 50 mls/hr IVPB ONCE STA Stop: 02/01/25 09:20 Last Infusion: 02/01/25 10:15 Dose: Infused Documented By: Admin: 02/01/25 09:11 Dose: 50 mls/hr Documented By: VITOR Co-signed By: ARNOL Ceftriaxone Sodium 1 gm/ (Sodium Chloride) 50 mls @ 100 mls/hr IVPB ONCE STA Stop: 02/01/25 11:45 Last Admin: 02/01/25 11:50 Dose: 100 mls/hr Documented By: VITOR Methylprednisolone Sodium Succinate (Methylprednisolone Sod Succ 125 Mg Vial) 125 mg IV PUSH ONCE STA Stop: 02/01/25 08:22 Last Admin: 02/01/25 08:30 Dose: 125 mg Documented By: VITOR Notes 02/01/25 12:02 Nurse Note by Florence Chan BC x2 and lactic obtained- sent to lab Pt medicated as per mar with LR and abx. Uncomfortable in stretcher but breathing remains improved. Initialized on 02/01/25 12:02 - END OF NOTE 02/01/25 10:16 Nurse Note by Florence Chan Patient continues to express improvement in WOB. Pt resting more comfortably. Aware of plan of care for CT and admission. Initialized on 02/01/25 10:16 - END OF NOTE 02/01/25 08:34 Nurse Note by Florence Chan RT at bedside for ABG and breathing tx Initialized on 02/01/25 08:34 - END OF NOTE Interventions/Assessments Cardiac Monitoring Start: 02/01/25 07:52 Freq: Status: Active Protocol: Document 02/01/25 08:05 VITOR (Rec: 02/01/25 08:06 VITOR [id number]) Director [place] Assessment Director [place] Yes Applied Pulse Rate (60-100 117 H beats/min) EKG Rythm Sinus Tachycardia IV / Saline Lock, Insert Start: 02/01/25 08:09 Freq: STAT Status: Active Protocol: Document 02/01/25 08:25 VITOR (Rec: 02/01/25 08:25 VITOR [id number]) IV Assessment Peripheral Access Left Forearm IV Catheter Access Initiated Before Arrival IV Insertion Date 02/01/25 Catheter Gauge 18 Ultrasound Used for No Placement IV Site Assessment WNL IV Care and WNL Maintenance PA: Cardiovascular Assessment Start: 02/01/25 07:52 Freq: Status: Active Protocol: Document 02/01/25 08:34 VITOR (Rec: 02/01/25 08:36 VITOR [id number]) Cardiovascular Assessment Cardiovascular Chest Pain Symptoms Skin Description Normal Color Heart Sounds Normal PA: Respiratory Assessment Start: 02/01/25 07:52 Freq: Status: Active Protocol: Document 02/01/25 08:34 VITOR (Rec: 02/01/25 08:36 VITOR [id number]) Respiratory Assessment Symptoms Cough,Restlessness Effort Abdominal Breathing,Labored,Short of Breath Pattern Tachypnea Depth Deep Adult Capillary Normal/Less than 2 Seconds Refill Cough Description Chronic Cough Frequency Intermittent Oxygen Delivery Oxygen Delivery Room Air Last Vital Signs Temperature 98.4 F 02/01/25 07:59 Pulse Rate 97 02/01/25 11:58 Respiratory Rate 31 H 02/01/25 11:58 Pulse Oximetry 100 02/01/25 11:58 Blood Pressure 117/84 02/01/25 11:58 Blood Pressure Mean 95 02/01/25 11:58 Oxygen Delivery Room Air 02/01/25 08:34 Weight 48.6 kg 02/01/25 07:59 Last Result - Abnormals Only RBC 3.29 M/mm3 (4.2-5.4) L 02/01/25 08:21 Hgb 11.3 g/dL (12.0-15.0) L 02/01/25 08:21 Hct 34.7 % (37.0-47.0) L 02/01/25 08:21 MCV 105.5 fl (80-100) H 02/01/25 08:21 MCH 34.3 pg (26-34) H 02/01/25 08:21 RDW 15.2 % (11.5-14.5) H 02/01/25 08:21 Plt Count 435 k/mm3 (150-375) H 02/01/25 08:21 Neut % (Auto) 79.0 % (45.5-73.1) H 02/01/25 08:21 Lymph % (Auto) 9.6 % (18.3-44.2) L 02/01/25 08:21 [place] % (Auto) 10.7 % (2.6-8.5) H 02/01/25 08:21 Lymph # (Auto) 0.82 K/mm3 (0.9-3.2) L 02/01/25 08:21 [place] # (Auto) 0.9 K/mm3 (0.1-0.6) H 02/01/25 08:21 Abs Immat Gran (auto) 0.04 K/mm3 (0.00-0.031) H 02/01/25 08:21 Absolute Neuts (auto) 6.8 K/mm3 (1.3-6.7) H 02/01/25 08:21 Sodium 131 mmol/L (137-145) L 02/01/25 08:21 Chloride 95 mmol/L (98-107) L 02/01/25 08:21 BUN 18 mg/dL (7-17) H 02/01/25 08:21 Creatinine 0.48 mg/dL (0.7-1.0) L 02/01/25 08:21 AST 169 U/L (14-36) H 02/01/25 08:21 ALT 249 U/L (6-35) H 02/01/25 08:21 Troponin I 0.059 ng/mL (0.000-0.034) H* 02/01/25 08:21 NT-Pro-B Natriuret Pep 44409 pg/mL (19.9-100) H 02/01/25 08:21 Lipase 22 U/L (23-300) L 02/01/25 08:21 Most Recent Suicide Severity Rating Suicide Severity Rating NO RISK INDICATED 02/01/25 07:59
[2025-02-01 12:18] LABS: Troponin I 0.049 ng/mL (0.000-0.034)
--- NOTE | 2025-02-01 12:27 | ADMGEN ---
This patient, Oralia Garsia, was admitted to IMU Room 212-01 at 1227. Patient/family oriented to hospital policies and general routines including ID bracelet, bed and alarms, visiting hours, pain management, procedures, bathroom and other care routines, personal items, smoking policy, room service/diet, and visiting hours. Information on how to activate the Rapid Response Team has been discussed. Patient/Family are encouraged to report perceived risks to care and to ask questions if they do not understand what they are told or what they should do.
[2025-02-01] MEDS: VANCOMYCIN 1,250 MG/NS 250 ML 1,250 MG/250 ML BAG 166.67 MG IVPB (12:41)
[2025-02-01 12:54] LABS: MRSA (PCR) NOT DETECTED (NOT DETECTE)
--- NOTE | 2025-02-01 13:42 | PM.IMHP ---
H&P: HPI History of Present Illness Date/Time: 02/01/25 13:42 Chief Complaint: Shortness of breath and chest pain Narrative: 74-year-old female with past medical history of COPD, ischemic cardiomyopathy, hyperlipidemia, hypertension, empyema presents to the ED on 02/01/2025 with complaints of chest pain and shortness of breath. Patient reportedly had the flu 2 weeks ago. She is chronically short of breath but her dyspnea has increased over the past few days. She has also been having intermittent episodes of sharp substernal chest pains over the past few days. The chest pain lasts for a couple of seconds resolving. She states the pain can happen with inspiration but also happens randomly. Denies productive cough, fever. Patient was hospitalized in July 2024 with empyema after an attempted CT guided left upper lobe nodule in June. Patient does have history of [place] in 2018 with 1 stent placed. Initial vital signs 146/85, HR 103, respirations 22, afebrile and 100% on room air. Hematology with no leukocytosis, baseline iron deficiency anemia. Sodium 131, chloride 95, BUN 18, creatinine 0.48. AST 169, ALT 249. Initial troponin 0.049. BNP 09028. Initial EKG sinus tachycardia with incomplete left bundle-branch block. No significant change from prior. Chest x-ray with probable small right pleural effusion, emphysema with hyperinflation. Chest CT right lower lobe bronchial pneumonia superimposed on chronic lung disease. Redemonstration of left lung nodule. 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 Osteoporosis without current pathological fracture Other emphysema Surgical History Surgical History History of chest tube placement S/P thoracentesis H/O breast surgery History of heart artery stent 2017 Family History Family History Sibling Hypertension Family history of malignant neoplasm of breast in first degree relative Family history of dementia Father Family history of cardiovascular disease Cerebrovascular accident Mother Family history of cardiovascular disease Family history of malignant neoplasm of urinary bladder Social History Social History Smoking packs per day: 0.5 Smoking cigarettes per day: 10.0 Years smoked: 50 Smoking pack-years: 25.00 Smoking status: Current every day smoker Tobacco type: cigarettes Second hand tobacco smoke exposure: No Alcohol intake: current Drinks per week: 4 Substance use: never Substance use type: does not use Last use: 06/14/2024 Lack of Transportation: No Lack of Food: Never True Current Housing: I Have Housing Concerned About Future Housing: No Difficulty Paying Gas/Electric Bills: No Difficulty Paying for Meds: No Currently Unemployed: No Education: Decline to Answer Difficulty w/ Childcare or Family Care: No Living arrangements: alone Gender identity (if verbalized by the patient): Female Spiritual care concerns: No Meds Home Medications and Allergies Home Medications ?Medication ?Instructions ?Recorded ?Confirmed ?Type aspirin 81 mg tablet,delayed 81 mg PO DAILY 02/19/19 02/01/25 History release tacrolimus 0.1 % topical ointment 1 applic topical BID PRN PSORIASIS 03/20/20 02/01/25 History triamcinolone acetonide 0.1 % 1 applic topical BID PRN PSORIASIS 03/20/20 02/01/25 History topical cream sacubitril 24 mg-valsartan 26 mg 1 tablet PO BID 02/09/23 02/01/25 History tablet (Entresto) inhalational spacing device (Space #1 ea 04/26/23 02/01/25 Rx Chamber) thiamine HCl (vitamin B1) 100 mg 100 mg PO DAILY #100 tabs 06/16/23 02/01/25 Rx tablet atorvastatin 40 mg tablet 40 mg PO DAILY 08/22/24 02/01/25 History cholecalciferol (vitamin D3) 250 250 mcg PO DAILY #90 caps 08/22/24 02/01/25 Rx mcg (10,000 unit) capsule cyanocobalamin (vitamin B-12) 1,000 mcg PO DAILY #100 tabs 08/22/24 02/01/25 Rx 1,000 mcg tablet spironolactone 25 mg tablet 12.5 mg PO DAILY 08/22/24 02/01/25 History budesonide 160 mcg-glycopyr 9 See Rx Instructions .Route 11/06/24 02/01/25 Rx mcg-formot 4.8 mcg/actuation HFA .COMPLEX #10.7 grams inhaler (Breztri Aerosphere) ferrous sulfate 325 mg (65 mg 325 mg PO BID #180 tabs 11/06/24 02/01/25 Rx iron) tablet (FeroSul) albuterol sulfate 90 mcg/actuation 1 inh inhalation Q4H #8.5 grams 12/02/24 02/01/25 Rx aerosol inhaler apixaban 5 mg tablet (Eliquis) 5 mg PO BID #180 tabs 12/11/24 02/01/25 Rx ezetimibe 10 mg tablet (Zetia) 10 mg PO DAILY #30 tabs 12/13/24 02/01/25 Rx clobetasol 0.05 % topical cream 1 applic topical DAILY PRN itching 12/21/24 02/01/25 Rx #60 grams pregabalin 100 mg capsule (Lyrica) 100 mg PO BID #30 caps 12/21/24 02/01/25 Rx omeprazole 20 mg capsule,delayed 20 mg PO DAILY 02/01/25 02/01/25 History release Allergies Allergy/AdvReac Type Severity Reaction Status Date / Time roflumilast (From [facility]) Allergy Unknown Hives Verified 02/01/25 12:42 morphine AdvReac Unknown Nausea Verified 02/01/25 12:42 Vital Signs Vital Signs - 24 hr 02/01/25 07:59 02/01/25 08:05 02/01/25 08:06 Temperature 98.4 F Pulse Rate 103 H 117 H Respiratory Rate 22 H 32 H Blood Pressure 146/85 H Pulse Oximetry 100 Oxygen Delivery Room Air 02/01/25 08:34 02/01/25 08:42 02/01/25 09:16 Temperature Pulse Rate 130 H 120 H Respiratory Rate 25 H 27 H Blood Pressure 133/90 Pulse Oximetry 100 Oxygen Delivery Room Air 02/01/25 09:31 02/01/25 09:38 02/01/25 10:47 Temperature Pulse Rate 100 128 H 123 H Respiratory Rate 25 H 22 H 28 H Blood Pressure 127/99 H Pulse Oximetry 100 99 Oxygen Delivery 02/01/25 11:58 02/01/25 12:53 11/28/25 12:58 Temperature 98.1 F Pulse Rate 97 98 Respiratory Rate 31 H 20 Blood Pressure 117/84 132/79 Pulse Oximetry 100 99 Oxygen Delivery Room Air Exam Narrative: GENERAL: non-toxic appearing, in no acute distress. HEAD: Normocephalic, atraumatic. EYES: PERRLA. Conjunctivae clear. NOSE: Normal no drainage. THROAT: Pharynx clear, no exudate. NECK: Trachea midline. No adenopathy, no masses. RESPIRATORY: Airway patent, respirations nonlabored. Decreased breath sounds throughout CARDIOVASCULAR: Irregular rate and rhythm BREASTS: Defer GASTROINTESTINAL: Abdomen is soft and nontender. No organomegaly. Bowel sounds normal in all quadrants. GENITOURINARY: Defer MUSCULOSKELETAL: Moves all extremities. No gross deformities. No edema. SKIN: Warm, dry, normal color. NEURO: A&O X4. Speech clear PSYCHIATRIC: Normal interaction H&P: Results Labs Labs: Short CBC 02/01/25 Range/Units 08:21 WBC 8.6 (4.5-10.0) K/mm3 Hgb 11.3 L (12.0-15.0) g/dL Hct 34.7 L (37.0-47.0) % Plt Count 435 H (150-375) k/mm3 BMP 02/01/25 08:21 Sodium 131 L Potassium 4.1 Chloride 95 L Carbon Dioxide 27 BUN 18 H Creatinine 0.48 L Glucose 90 Calcium 8.9 Cardiac Enzymes 02/01/25 02/01/25 Range/Units 08:21 11:35 Troponin I 0.059 H* 0.049 H* (0.000-0.034) ng/mL Liver Function 02/01/25 Range/Units 08:21 Total Bilirubin 1.0 (0.2-1.3) mg/dL AST 169 H (14-36) U/L ALT 249 H (6-35) U/L Alkaline Phosphatase 74 (38-126) U/L Albumin 3.8 (3.5-5.1) g/dL Assessment and Plan Assessment and plan (1) Pneumonia: Qualifiers: Pneumonia type: due to unspecified organism Laterality: right Lung location: lower lobe of lung Qualified Code(s): J18.9 - Pneumonia, unspecified organism Code(s): J18.9 - Pneumonia, unspecified organism Status: Acute Assessment and Plan: Presents with a few day history of increasing dyspnea accompanied by a substernal chest pain. Had the flu roughly 2 weeks ago. Chest x-ray with probable small right pleural effusion, emphysema with hyperinflation. Chest CT right lower lobe bronchial pneumonia superimposed on chronic lung disease. Redemonstration of left lung nodule. Patient with history of COPD and empyema in July 2024. - started on Rocephin, doxycycline vancomycin on 02/01 - MRSA PCR negative - currently not requiring supplemental O2 (2) Elevated troponin: Code(s): R79.89 - Other specified abnormal findings of blood chemistry Status: Chronic Assessment and Plan: Patient presents with 3 day history of dyspnea accompanied by intermittent nonradiating substernal chest pain described as sharp and lasting only a couple seconds. No acute ischemia on serial EKGs. - EKG, initial: Initial EKG sinus tachycardia with incomplete left bundle-branch block. No significant change from prior. Initial troponin elevated at 0.059. Patient has a history of elevated troponin without cardiac ischemia. Likely elevated due to demand ischemia. - EKG, repeat (1): AFib with incomplete left bundle-branch block - EKG, repeat (2): Sinus tach with rate of 101 - Chest x-ray with probable small right pleural effusion, emphysema with hyperinflation. - Troponin: 0.059-0.049-0.047 - 324 mg ASA in ED - cardiology consulted, awaiting recs - continue atorvastatin - previous echo on 01/26/2023 shows an EF of 43% - telemetry monitoring (3) COPD (chronic obstructive pulmonary disease): Qualifiers: COPD type: unspecified COPD Qualified Code(s): J44.9 - Chronic obstructive pulmonary disease, unspecified Code(s): J44.9 - Chronic obstructive pulmonary disease, unspecified Status: Chronic Assessment and Plan: Emphysema with hyperinflation noted on chest x-ray. Patient found to be wheezy in ED. - DuoNebs Q6H p.r.n. - substitute breztri for trilogy while inpatient - home medications: Breztri and albuterol p.r.n. - 125 mg methylprednisolone, hour long DuoNeb, and 2 g magnesium sulfate in ED - currently not requiring supplemental O2 (4) Atrial fibrillation: Qualifiers: Atrial fibrillation type: paroxysmal Qualified Code(s): I48.0 - Paroxysmal atrial fibrillation Code(s): I48.91 - Unspecified atrial fibrillation Status: Chronic Assessment and Plan: Chronic AFib with heart rate frequently greater than 100 documented over several years. Asymptomatic -continue apixaban (5) Ischemic cardiomyopathy: Code(s): I25.5 - Ischemic cardiomyopathy Status: Chronic Assessment and Plan: History of CAD status post stent in 2018. Patient presents today with intermittent substernal sharp chest pain with elevated troponin. Pain does not appear to be cardiac related - previous echo on 01/26/2023 shows an EF of 43% -continue Entresto, Lasix, spironolactone (6) Hyperlipidemia: Qualifiers: Hyperlipidemia type: unspecified Qualified Code(s): E78.5 - Hyperlipidemia, unspecified Code(s): E78.5 - Hyperlipidemia, unspecified Status: Chronic Assessment and Plan: Continue Zetia, atorvastatin Plan Diet: Heart healthy GI prophylaxis: NA DVT prophylaxis: SCDs lines/drains: PIV Fluids: 1 L LR Code status: Full Quality VTE Prophylaxis VTE prophylaxis: mechanical ordered Hospitalist [facility] Advance Care Plan I have confirmed that the patient's Advanced Care Plan is present, code status is documented, or surrogate decision maker is listed in patient medical record.: Yes Medication Reconciliation I have utilized all available resources to obtain, update and review the patients current medications (includes all prescriptions, OTC, herbals, cannabis, and nutritional supplements).: Yes
[2025-02-01] MEDS: DOXYCYCLINE IV 100 MG in SODIUM CHLORIDE 0.9% IV 100 ML IVPB (14:24)
[2025-02-01] MEDS: FUROSEMIDE INJ 40 MG/4 ML VIAL IV PUSH (14:25)
--- OUTSIDE RECORDS SUMMARY | 2025-02-01 14:41 | XMS_ITS | Encounter Summary ---
Author Organization [facility] Healthcare Address [address] [place] [address] Care Team Providers Care Envelope Maker Name Role Phone Rafael Ruiz MD Primary Care Provider [phone]- [phone] Stacey Dunlap MD Primary Care Provider [phone]- [phone] Amado Ellis Primary Care Provider [phone] Nu Shirley MD Primary Care Provider [phone] Encounter Details Date Type Department Care Team (Late st Contact Info) Description 06/16/2017 Orders Only [facility] Information Management [address] [place] [id number] Scanning, Provider Social History Tobacco Use Types Packs/Day Years Used Date Smoking Tobacco: Every Day Alcohol Use Standard Drinks/Week Comments Yes 0 (1 standard drink = 0.6 oz pur e alcohol) Comments Unknown Sex and Gender Information Value Date Recorded Sex Assigned at Not on file 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 Gender Identity Female 08/11/2017 1:49 PM [...] on filedocumented in this encounter Care Teams Envelope Maker Relationship Specialty Start Date End Date Rafael Ruiz MD [address] [place] [address] PCP - General 11/27/15 10/26/17 Stacey Dunlap MD [address] [place] [address] PCP - General Family Practice 10/27/17 12/16/20 Amado Ellis PA [address] [place] [address] PCP - General Physician Assistant Production Editor 12/17/20 01/13/21 Nu Shirley MD [address] [place] [address] PCP - General Family Medicine 01/14/21 documented as of this encounter
--- OUTSIDE RECORDS SUMMARY | 2025-02-01 14:41 | XMS_ITS | Encounter Summary ---
Author Organization [facility] Healthcare Address [address] [place] [address] Care Team Providers Care Supervisor Pole Yard Name Role Phone Stacey Dunlap MD Primary Care Provider [phone] Amado Ellis Primary Care Provider [phone] Nu Shirley MD Primary Care Provider [phone] Encounter Details Date Type Department Care Team (Late st Contact Info) Description 12/12/2018 Orders Only [facility] Health Information Management [address] [place] [id number] Scanning, Provider Social History Tobacco Use Types Packs/Day Years Used Date Smoking Tobacco: Light Smoker Smokeless Tobacco: Never Alcohol Use Standard Drinks/Week Comments Yes 0 (1 standard drink = 0.6 oz pur e alcohol) social Comments Unknown Sex and Gender Information Value Date Recorded Sex Assigned at Not on file 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
--- OUTSIDE RECORDS SUMMARY | 2025-02-01 14:41 | XMS_ITS | Clinical Summary ---
Author Organization [facility] Address [address] [place] [address] Phone Care Team Providers Care Cable Ferry Operator Name Role Phone Stacey Wyatt MD Primary [...] Take by mouth 2 times daily. Active [place]-3 Fatty Acids (OMEGA-3 FISH OIL PO) Take [...] age to complete this topic Insurance MEDICARE [facility] Care Teams Cable Ferry Operator Relationship Specialty Start Date End Date Stacey Wyatt MD [address] [place] [address] PCP - General Family Medicine 11/24/17
--- OUTSIDE RECORDS SUMMARY | 2025-02-01 14:41 | XMS_ITS | Clinical Summary ---
Author Organization [facility] Address [address] [place] [address] Care Team Providers Care Slab Puller Name Role Phone Rafael Ruiz MD Primary Care Provider [phone] Source Comments [facility],non-owned Affiliates and Associated Physician Practices is amultiple site organization consisting of ambulatory clinics and hospital sitesin [place], [place], [place] and [place]. This disclosure is being madepursuant to the Care Everywhere program and may not contain all information available regarding this patient. 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
--- OUTSIDE RECORDS SUMMARY | 2025-02-01 14:41 | XMS_ITS | Clinical Summary ---
Author Organization [facility] Address [address] [place] [address] Care Team Providers Care Baton Teacher Name Role Phone Nu Shirley MD Primary Care Provider [phone] Allergies Active Allergy Reactions Criticality Noted Date [...] by mouth daily before breakfast. Active OTHER [place] Tail Mushroom 2 tablets daily . Active [...] 3 Active fluticasone propionate (FLONASE) 50 mcg/spray [place], Suspension nasal inhaler Administer 2 Sprays in [...] daily. 5 Active naloxone (NARCAN) 4 mg/spray [place], Non-Aerosol EMERGENCY USE ONLY: Administer 1 spray [...] OR WO CAD Routine 02/13/2024 2:08 PM CREDIT DIRECTOR from Last 3 Months or Most Recently Relevant to Health Maintenance Results * MAMMO DIAGNOSTIC UNI LEFT W OR WO CAD (02/13/2024 2:08 PM CREDIT DIRECTOR) Anatomical Region Laterality Modality Breast Left Mammography Suhail Luis MD MAMMO ORDERABLES Final Result from Last 3 Months or Most Recently Relevant to Health Maintenance Insurance AET[employer] PPO [facility] AETNA PPO MCR Advance Directives For more information, please contact: [phone] * Full Code (Latest Code Status on File) Date Activated Date Inactivated Comments 07/29/2024 12:15 PM 08/09/2024 2:25 PM * Full Code Date Activated Date Inactivated Comments 07/17/2024 6:49 PM 07/26/2024 8:51 PM * Full Code Date Activated Date Inactivated Comments 06/25/2024 8:28 PM 06/29/2024 3:15 PM Care Teams Baton Teacher Relationship Specialty Start Date End Date Nu Shirley MD [address] [place] [address] PCP - General Family Practice 07/18/23
--- OUTSIDE RECORDS SUMMARY | 2025-02-01 14:41 | XMS_ITS | Clinical Summary ---
Author Organization [facility] [address] Address [address] [place] [address] Care Team Providers Care Apartment Community Assistant Manager Name Role Phone Nu Shirley MD Primary Care Provider [phone] Allergies Active Allergy Reactions Criticality Noted Date [...] mg total) by mouth daily Active zoledronic dvrp-mqwnkvom-z ater (RECLAST) 5 mg/100 mL piggyback Active [...] (NSTEMI) 06/23/2017 Coronary artery disease invo lving [place] coronary artery of [place] heart without angina pectoris 06/23/2017 Concussion with [...] consider Prolia. She should continue calcium of 3530-0137 mg per day through dietary intake or [...] this time. She should continue calcium of 6372-7104 mg per day through dietary intake or [...] has improved. She should continue calcium of 1396-3287 mg per day through dietary intake or supplements and vitamin D 2000 IU per day get IV Reclast again Assessment & Plan (11/23/2018 4:00 PM CDT): In summary, Ms. GARSIA has osteoporosis that is likely multifactorial secondary to tobacco use and family history of osteoporosis and advanced age. Her bone density has improved. She should continue calcium of 4384-9328 mg per day through dietary intake or supplements and vitamin D 2000 IU per day get IV Reclast again. Assessment & Plan (10/27/2017 12:06 PM CDT): In summary, Ms. GARSIA has osteoporosis that is likely multifactorial secondary to tobacco use and family history of osteoporosis and advanced age. She's being treated with calcium of 3040-0235 mg per day through dietary intake or supplements and vitamin D 2000 IU per day and Forteo (teriparatide) and she's tolerating it well. Her bone density has improved. Encounters Date Type Department Care Team Description 02/01/2025 Telephone [facility] Cardiology [address] [place] [address] Simon Taylor MD [facility] Consult from Last 3 Months Surgical History Surgery Date Site/Laterality Comments HYSTERECTOMY KNEE SURGERY CARDIAC CATHETERIZATION BREAST SURGERY JOINT REPLACEMENT 03/07/2005 - 03/06/2006 CARDIAC STENT PLACEMENT Medical History Medical History Date Comments Asthma Asthma Bronchitis Bronchitis; Comm ents: NB 11/28/2015 -Chronic Hx Other Medical Acid reflux Hypertension Heart attack (HCC) Hypercholesteremia Cancer (HCC) pre-cancerous [facility] Osteoporosis GERD (gastroesophageal reflux disease) [...] on file Legal Sex Female 4:14 AM CONTROL SYSTEMS ENGINEER Gender Identity Female 08/11/2017 1:49 PM CDT Sexual Orientation Not on file Last Filed Vital Signs Vital Sign Reading Time Taken Comments Blood Pressure 127/65 03/10/2024 10:49 AM CONTROL SYSTEMS ENGINEER Pulse 94 03/10/2024 10:49 AM CONTROL SYSTEMS ENGINEER Temperature 36.7 C (98.1 F) 03/10/2024 10:49 AM CONTROL SYSTEMS ENGINEER Respiratory Rate 20 03/10/2024 10:49 AM CONTROL SYSTEMS ENGINEER Oxygen Saturation 97% 03/10/2024 10:49 AM CONTROL SYSTEMS ENGINEER Inhaled Oxygen Concentration - - Weight 60.8 kg (134 lb 1.6 oz) 03/10/2024 10:49 AM CONTROL SYSTEMS ENGINEER Height 165.1 cm (5' 5) 03/10/2024 10:49 AM CONTROL SYSTEMS ENGINEER Body Mass Index 22.32 03/10/2024 10:49 AM CONTROL SYSTEMS ENGINEER Plan of Treatment Health Maintenance Due Date Last Done Comments Breast Cancer Screening-Mammogram 1950 Colon Cancer Screening-Colonoscopy 1950 Depression Screening 1950 Hepatitis B Screening 1970 DTaP/Tdap/Td Vaccine (2 - Td or Tdap) 03/28/2016 03/28/2006 Well Visit 65+ 2017 Fall Risk Assessment 03/31/2024 03/31/2023, 12/12/19 20 Influenza Vaccine (#1) 2024 11/13/2019, 2018 Osteoporosis Screening-Bone Density Scan 01/11/2025 01/11/2023, 12/31/2021, 12/11/2020, Additional history exists Zoster Vaccine Completed 08/29/2018, 05/18/2018 Pneumococcal vaccine 65+ Completed 020, 12/01/2017, 07/05/2013 Hepatitis C Screening Completed 07/05/2023 Medical Devices Implanted Type Area Upholstery Repairer Device Identifier Shelf Expiration Date Model / Serial / Lot [employer] Device Closure Vascade Od5 Fr Femoral Artery [id number] - [id number] Implanted:Qty: 1 on 03/31/2023 by Miguel Mccloud MD at [facility] [employer] [facility] 12/02/2024 [id number] / / [id number] Procedures Procedure Name Priority Date/Time Associated Diagnosis Comments HEPATITIS PANEL, ACUTE Routine 07/05/2023 9:55 AM CDT Acid phosphatase elevated Fatigue Hypopotassemia DEXA TBS AXIAL SKELETON BONE DENSITY 1 OR MORE SITES Schedule Routine, Read Routine (OP Routine) 01/11/2023 10:31 AM CONTROL SYSTEMS ENGINEER Age-related osteoporosis without current pathological fracture from [...] Hep B core IgM Nonreactive Nonreactive [facility] Comment: Interpretive Data If HepB Core IgM Ab is reported as Equivocal, a new sample should be drawn in two weeks for testing. Current interpretive data was last revised on 19. Hep C Ab Nonreactive Nonreactive [facility] Comment: Interpretive Data Nonreactive: Antibodies to [...] revised on 2019. HepBsAg Nonreactive Nonreactive [facility] Blood Venous blood specimen / Unknown 07/05/2023 9:55 AM CDT 07/05/2023 3:12 PM CDT Narrative [facility] - 07/05/2023 5:04 PM CDT Fax results to Dr Nu Shirley [phone] us Nu Shirley MD LAB MICROBIOLOGY - [facility] Final Result [facility] [id number] [facility] Department [place] [address] * Dexa TBS Axial Skeleton Bone Density 1 or more sites (01/11/2023 10:31 AM CONTROL SYSTEMS ENGINEER) Anatomical Region Laterality Modality Wrist, Body N/A Radiographic Batsheva ging Narrative 01/11/2023 4:22 PM CONTROL SYSTEMS ENGINEER Patient Name: Oralia Garsia Date of : 1950 Date of scan: 01/11/2023 Bone mineral density was performed on a HoloVerical Discovery Densitometer. Based on machine cross-calibration and [...] by the International Society of Clinical Densitometry. [id number] Salud John MD IMG DXA PROCEDURES Final Re sult from Last 3 Months or Most Recently Relevant to Health Maintenance Insurance [employer] MED[employer]ARE [employer] MEDICARE A[employer] MEDICARE Care Teams Apartment Community Assistant Manager Relationship Specialty Start Date End Date Nu Shirley MD PCP - General Family Medicine 01/14/21
--- OUTSIDE RECORDS SUMMARY | 2025-02-01 14:41 | XMS_ITS | Encounter Summary ---
Author Organization [facility] Healthcare Address [address] [place] [address] Care Team Providers Care Gas Main Fitter Name Role Phone Nu Shirley MD Primary Care Provider [phone] Reason for Visit * Reason Onset Date Comments [facility] Consult 02/01/2025 Encounter Details Date Type Department Care Team (Late st Contact Info) Description 02/01/2025 Telephone [facility] Medical Group Cardiology [address] [facility] [address] [address] Simon Taylor MD [address] [place] [address] [facility] Consult Social History Tobacco Use Types Packs/Day Years Used Date Smoking Tobacco: Light Smoker Cigarettes Smokeless Tobacco: Never Alcohol Use Standard [...] on file 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 Taylor that Dr. Herring from [facility] has requested a consult on patientfor chest pain. Room: 212 Bed: 1 Thank you! PRINT PRESS OPERATOR documented in this encounter Plan of Treatment Not on file documented as of this encounter Visit Diagnoses Not on filedocumented in this encounter Care Teams Gas Main Fitter Relationship Specialty Start Date End Date Nu Shirley MD PCP - General Family Medicine 01/14/21 documented as of this encounter
--- OUTSIDE RECORDS SUMMARY | 2025-02-01 14:41 | XMS_ITS | Encounter Summary ---
Author Organization [facility] Healthcare Address [address] [place] [address] Care Team Providers Care Radiology Nurse Name Role Phone Rafael Ruiz MD Primary Care Provider [phone] Stacey Dunlap MD Primary Care Provider + [phone] Amado Ellis Primary Care Provider [phone] Nu Shirley MD Primary Care Provider [phone] Encounter Details Date Type Department Care Team (Late st Contact Info) Description 07/02/2017 Orders Only [facility] Information Management [address] [place] [address] Scanning, Provider Social History Tobacco Use Types Packs/Day Years Used Date Smoking Tobacco: Light Smoker Smokeless Tobacco: Never Alcohol Use Standard Drinks/Week Comments Yes 0 (1 standard drink = 0.6 oz pur e alcohol) social Comments Unknown Sex and Gender Information Value Date Recorded Sex Assigned at Not on file 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 Gender Identity Female 08/11/2017 1:49 PM CDT [...] on filedocumented in this encounter Care Teams Radiology Nurse Relationship Specialty Start Date End Date Rafael Ruiz MD [address] [facility] [place] [address] PCP - General 11/27/15 10/26/17 Stacey Dunlap MD [address] [facility] [place] [id number] PCP - General Family Practice 10/27/17 12/16/20 Amado Ellis, PA [address] [place] [address] PCP - General Physician Manager Shop 12/17/20 01/13/21 Nu Shirley MD [address] [place], [place] [id number] PCP - General Family Medicine 01/14/21 documented as of this encounter
--- OUTSIDE RECORDS SUMMARY | 2025-02-01 14:41 | XMS_ITS ---
Author Organization [facility] [address] Address [address] [place] [address] Care Team Providers Care Inspector Hairspring Truing Name Role Phone Nu Shirley MD Primary Care Provider [phone] Active Problems Problem Noted Date Diagnosed Date [...] consider Prolia. She should continue calcium of 0341-9143 mg per day through dietary intake or [...] this time. She should continue calcium of 4347-2109 mg per day through dietary intake or [...] has improved. She should continue calcium of 0586-7578 mg per day through dietary intake or supplements and vitamin D 2000 IU per day get IV Reclast again Assessment & Plan (11/23/2018 4:00 PM CDT): In summary, Ms. GARSIA has osteoporosis that is likely multifactorial secondary to tobacco use and family history of osteoporosis and advanced age. Her bone density has improved. She should continue calcium of 2905-7764 mg per day through dietary intake or supplements and vitamin D 2000 IU per day get IV Reclast again. Assessment & Plan (10/27/2017 12:06 PM CDT): In summary, Ms. GARSIA has osteoporosis that is likely multifactorial secondary to tobacco use and family history of osteoporosis and advanced age. She's being treated with calcium of 6105-3645 mg per day through dietary intake or [...]
--- OUTSIDE RECORDS SUMMARY | 2025-02-01 14:41 | XMS_ITS | Encounter Summary ---
Author Organization [facility] Address [address] [place] [address] Care Team Providers Care Preschool Lead Teacher Name Role Phone Rafael Ruiz MD Primary Care Provider [phone] Encounter Details Date Type Department Care Team (Late st Contact Info) Description 12/12/2019 Lab Requisition [place] [facility] DermPath Lab [address] [facility] [place] [address] Mireya Shahid MD [address] 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 Gender Identity Not on file Sexual Orientation Not on file documented as of this encounter Plan of Treatment Not on file documented as of this encounter Procedures Procedure Name Priority Date/Time Associated Diagnosis Comments DERMATOPATHOLOGY Routine 12/11/2019 12:0 0 AM CDT documented in this encounter Results * DERMATOPATHOLOGY (12/11/2019 12:00 AM CDT) Case Report Dermatopathology Report Case: [id number] Authorizing Provider: Mireya Shahid MD Collected: 12/11/2019 12:00 AM Ordering Location: [facility] Derm[facility] Lab Received: 12/12/2019 05:52 [...] characteristic determined by the Dermatopathology Laboratory at [facility], directed by Dr. Sabina Washington. These tests need not be, and therefore are not, approved by the [place] Food and Drug Administration. The tests are used for clinical purposes. Billing Codes Specimen Charges Stain Charges 95409 1 [id number] 1 0 5:41 PM CDT DERMATOPATHOLOGY LABORATORY Embedded Images 0 5:41 PM CDT DERMATOPATHOLOGY LABORATORY Pathology/Cytolog y TISSUE SPECIMEN FROM SKIN / Unknown 12/11/2019 12/12/2019 5:52 AM CDT Mireya Shahid MD LAB - PATHOLOGY/CYTOLOGY ORD ERABLES Final Result DERMATOPATHOLOGY LABORATORY [facility] - Department of Dermatology [facility] Medicine [address] [place] [address], [address] [phone] documented in this encounter Visit Diagnoses Not on filedocumented in this encounter Care Teams Preschool Lead Teacher Relationship Specialty Start Date End Date Rafael Ruiz MD [place] [address] PCP - General 08/19/14 documented as of this encounter
--- OUTSIDE RECORDS SUMMARY | 2025-02-01 14:41 | XMS_ITS | Encounter Summary ---
Author Organization [facility] Healthcare Address [address] [place] [address] Care Team Providers Care Executive Vice President Business Development Name Role Phone Rafael Ruiz MD Primary Care Provider +- [phone] Stacey Dunlap MD Primary Care Provider [phone]- [phone] Amado Ellis Primary Care Provider [phone] Nu Shirley MD Primary Care Provider [phone] Encounter Details Date Type Department Care Team (Late st Contact Info) Description 06/09/2017 Orders Only [facility] Health Information Management [address] [place] [address] Scanning, Provider Social History Tobacco Use Types Packs/Day Years Used Date Smoking Tobacco: Every Day Alcohol Use Standard Drinks/Week Comments Yes 0 (1 standard drink = 0.6 oz pur e alcohol) Comments Unknown Sex and Gender Information Value Date Recorded Sex Assigned at Not on file 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 Gender Identity Female 08/11/2017 1:49 PM [...] on filedocumented in this encounter Care Teams Executive Vice President Business Development Relationship Specialty Start Date End Date Rafael Ruiz MD [address] [place] [address] PCP - General 11/27/15 10/26/17 Stacey Dunlap MD [address] [place] [address] PCP - General Family Practice 10/27/17 12/16/20 Amado Ellis PA [address] [place] [address] PCP - General Physician Roto Gravure Press Operator 12/17/20 01/13/21 Nu Shirley MD [address] [place] [address] PCP - General Family Medicine 01/14/21 documented as of this encounter
--- OUTSIDE RECORDS SUMMARY | 2025-02-01 14:41 | XMS_ITS | Clinical Summary ---
Author Organization [facility] Address [address] [place] [address] Care Team Providers Care Crank Hand Name Role Phone Unavailable Primary Care Provider [...]
[2025-02-01 14:48] LABS: Troponin I 0.047 ng/mL (0.000-0.034)
[2025-02-01] MEDS: SACUBITRIL/VALSARTAN 24-26 MG TABLET 1 TAB PO (16:04)
[2025-02-01] MEDS: APIXABAN 5 MG TABLET PO (16:04)
[2025-02-01] MEDS: FERROUS SULFATE 325 MG TABLET PO (16:04)
[2025-02-01] MEDS: PREGABALIN (*CRX) 50 MG CAPSULE 100 MG PO (16:04)
--- NOTE | 2025-02-01 16:47 | PCRCNOTE ---
Window of time for administration has passed. See next scheduled administration.
--- NOTE | 2025-02-01 16:53 | ECG_ITS ---
Test Date: 2025-02-01 17:18:38 Measurements Intervals [place] Rate: 101 P: 23 HI: 135 QRS: -49 QRSD: 137 T: -83 QT: 389 QTc: 506 Interpretive Statements SINUS TACHYCARDIA MARKED LEFT AXIS DEVIATION [QRS AXIS < -30] INCOMPLETE LEFT BUNDLE BRANCH BLOCK ABNORMAL ECG Compared to ECG 02/01/2025 11:54:30 NO ATRIAL ECTOPIC ACTIVITY IS PRESENT, NO OTHER DIFFERENCE Electronically Signed On 02-02-2025 08:04:20 VICE PRESIDENT by Simon Taylor M.D.
--- NOTE | 2025-02-01 17:06 | ECG_ITS ---
Test Date: 2025-02-01 17:06:35 Measurements Intervals [place] Rate: 135 P: 80 NV: 139 QRS: -68 QRSD: 132 T: 75 QT: 361 QTc: 542 Interpretive Statements SINUS TACHYCARDIA WITH INTERMITTENT SHORT RUNS OF ATRIAL TACHYCARDIA LEFT AXIS DEVIATION INCOMPLETE LEFT BUNDLE BRANCH BLOCK BORDERLINE ST-T WAVE ABNORMALITY- INF/LAT LEADS ABNORMAL ECG Compared to ECG 02/01/2025 11:54:30 INTERMITTENT ATRIAL TACHYCARDIA NOW PRESENT Electronically Signed On 02-04-2025 09:31:48 TRANSPORT TECH by Darvin Samaniego D.O.
--- NOTE | 2025-02-01 17:17 | ECG_ITS ---
Test Date: 2025-02-01 17:17:18 Measurements Intervals [place] Rate: 107 P: 75 IN: 145 QRS: -52 QRSD: 138 T: -83 QT: 341 QTc: 456 Interpretive Statements SINUS TACHYCARDIA WITH SHORT RUN OF ATRIAL TACHYCARDIA LEFT AXIS DEVIATION INCOMPLETE LEFT BUNDLE BRANCH BLOCK DELAYED PRECORDIAL R/S TRANSITION BORDERLINE ST-T WAVE ABNORMALITY- INF/LAT LEADS BASELINE ARTIFACT- I, III, AVR, AVL, AVF, V4 ABNORMAL ECG Compared to ECG 02/01/2025 17:06:35 NO SIGNIFICANT CHANGE Electronically Signed On 02-04-2025 09:33:15 RN RESOURCE NURSE by Darvin Samaniego D.O.
[2025-02-02] VITALS (15 sets, daily range): BP systolic 82–144; BP diastolic 26–79; PULSE 88–108; RESP 15–20; TEMP 36.4–37; O2SAT 95–98
[2025-02-02] MEDS: DOXYCYCLINE IV 100 MG in SODIUM CHLORIDE 0.9% IV 100 ML IVPB ×2 (04:27→14:16)
[2025-02-02 04:51] LABS: Hematocrit 31.3 % (37.0-47.0); Hemoglobin 10.6 g/dL (12.0-15.0); Immature Granulocyte Percent A 0.5 % (0-0.5); Lymphocytes Absolute Auto 0.85 K/mm3 (0.9-3.2); Mean Corpuscular HGB Conc 33.9 g/dl (32-36); Mean Corpuscular Hemoglobin 34.0 pg (26-34); Mean Corpuscular Volume 100.3 fl (80-100); Nucleated Red Blood Cells Absolute Auto 0.000 K/mm3 (0.0-0.012); Nucleated Red Blood Cells Perc 0.0 % (0.0-0.2); Platelet Count Result 360 k/mm3 (150-375); Red Blood Count 3.12 M/mm3 (4.2-5.4); White Blood Count 8.2 K/mm3 (4.5-10.0)
[2025-02-02 04:59] LABS: Anion Gap 1 mmol/L (4-12); Blood Urea Nitrogen 17 mg/dL (7-17); Calcium 8.1 mg/dL (8.4-10.2); Carbon Dioxide 34 mmol/L (22-30); Chloride 95 mmol/L (98-107); Estimated CRCL calculation 57 ml/min; Estimated Glomerular Filt Rate > 60; Glucose 139 mg/dL (65-110); Potassium 3.1 mmol/L (3.4-5.0); Sodium 130 mmol/L (137-145)
[2025-02-02] MEDS: VANCOMYCIN HCL 1,000 MG in SODIUM CHLORIDE 0.9% IV 250 ML 250 MG IVPB (06:53)
[2025-02-02] MEDS: FLUTICASONE/UMECLIDIN/VILANTER 100-62.5-25 MCG ELLIPTA 1 PUFF INHALATION (07:53)
[2025-02-02] MEDS: PREGABALIN (*CRX) 50 MG CAPSULE 100 MG PO ×2 (09:05→16:46)
[2025-02-02] MEDS: THIAMINE HCL 100 MG TABLET PO (09:05)
[2025-02-02] MEDS: SACUBITRIL/VALSARTAN 24-26 MG TABLET 1 TAB PO (09:05)
[2025-02-02] MEDS: APIXABAN 5 MG TABLET PO ×2 (09:06→16:46)
[2025-02-02] MEDS: PANTOPRAZOLE 40 MG TABLET PO (09:06)
[2025-02-02] MEDS: EZETIMIBE 10 MG TABLET PO (09:06)
[2025-02-02] MEDS: FUROSEMIDE INJ 40 MG/4 ML VIAL IV PUSH (09:06)
[2025-02-02] MEDS: CYANOCOBALAMIN 1,000 MCG TABLET 1000 MCG PO (09:06)
[2025-02-02] MEDS: ASPIRIN 81 MG ENTERIC TABLET PO (09:06)
[2025-02-02] MEDS: ATORVASTATIN 40 MG TABLET PO (09:06)
[2025-02-02] MEDS: cefTRIAXone 1 GM in SODIUM CHLORIDE 0.9% IV 50 ML 100 ML IVPB (09:09)
[2025-02-02] MEDS: FERROUS SULFATE 325 MG TABLET PO ×2 (09:09→16:46)
--- NOTE | 2025-02-02 10:43 | PM.CNCAR ---
Assessment and Plan Assessment and plan (1) CAD (coronary artery disease): Qualifiers: Coronary Disease-Associated Artery/Lesion type: unspecified vessel or lesion type [place] vs. transplanted heart: unspecified whether [place] or transplanted heart Associated angina: unspecified whether angina present Qualified Code(s): I25.10 - Atherosclerotic heart disease of [place] coronary artery without angina pectoris Code(s): I25.10 - Atherosclerotic heart disease of [place] coronary artery without angina pectoris Status: Acute (2) Presence of stent in coronary artery in patient with coronary artery disease: Code(s): I25.10 - Atherosclerotic heart disease of [place] coronary artery without angina pectoris; Z95.5 - Presence of coronary angioplasty implant and graft Status: Acute Plan 74-year-old lady known to have coronary disease with PCI to her circumflex in 2018. She enters the hospitalist of coughing and what it sounds like chest wall pain related to that. There is no objective evidence of an acute coronary syndrome her ECG does not show any ischemic changes and her troponin levels are just barely out of normal range but there is no pattern indicative of acute myocardial injury. Furthermore she had a follow-up left heart catheterization last year at [facility] that did not show any significant coronary stenosis. For that reason I do not believe I would recommend launching ischemic workup here at this time. Appropriate follow-up is already arranged for this lady with my partner in the office. Disposition is of course up to the primary team but there is no cardiac reason she needs to remain hospitalized Simon Taylor MD [facility] History of Present Illness History of Present Illness Consult date/time: 02/02/25 10:43 Reason For Visit: PNA Narrative: This is a 74-year-old woman who I am seeing at the request of the hospitalist because of chest pain. She is not known to me but is a longstanding patient of our practice currently followed with my partner, Dr. Mccloud. She reports a history of feeling ill for 5-7 days before coming in with nonproductive cough and some shortness of breath. She does have significant severe baseline COPD and was reporting the symptoms for a number of days. With the persistent coughing she was noticing some sharp right upper chest wall pain that was coming and going that made her worry about her heart and so she came into the emergency department for evaluation. Her electrocardiogram shows sinus rhythm with a intraventricular conduction delay but no acute ST segment injury pattern. She has 3 troponins that are done that are slightly out of normal range at 0.04 but we have a flat pattern without any elevation consistent with acute myocardial injury. She does not have any additional complaints at this time. She has a history of coronary disease dating back to 2018 at which time she had a non ST elevation [place] was found to have high-grade stenosis in her circumflex which was treated with a drug-eluting stent. She has been followed in our office regularly since then. She is known to have some COPD as mentioned above she has been unable to quit smoking although she only smokes about 2 cigarettes a day at this point. I do not believe she has any history of peripheral arterial disease at this time. The patient was having symptoms of intermittent chest discomfort blood like this that were atypical but because of this she did undergo a follow-up left heart catheterization in 2023 at [facility] by Dr. Mccloud which did not show any significant coronary lesions. Her circumflex that was stented in 2018 remained widely patent and there were no new significant lesions identified. Review of Systems Constitutional: Constitutional: Reports no additional constitutional complaints Eyes: Eyes: Reports no additional eye complaints ENT: Reports system reviewed and no additional complaints, except as documented Cardiovascular: Cardiovascular: Reports as per HPI Respiratory: Respiratory: Reports cough and Reports dyspnea on exertion Gastrointestinal: Gastrointestinal: Reports no additional gastrointestinal complaints Musculoskeletal: Musculoskeletal: Reports no additional musculoskeletal complaints Integumentary/Breasts: Skin/Breast: Reports system reviewed and no additional complaints, except as docu Neurologic: Reports system reviewed and no additional complaints, except as documented Endocrine: Endocrine: Reports no additional endocrine complaints Hematologic/Lymphatic: Hematologic/Lymphatic: Reports no additional hematologic/lymphatic complaints Allergic/Immunologic: Allergic/Immunologic: Reports no additional allergic/immunologic complaints [facility] Past Medical History Medical History (Updated 02/01/25 @ 21:06 by Liz Narayan APRN) Loculated empyema History of rib fracture Nodule of right lung Elevated liver enzymes Ischemic cardiomyopathy ECHO 05/24 40% EF COPD (chronic obstructive pulmonary disease) Hyperlipidemia Primary hypertension Benign hypertension 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 Osteoporosis without current pathological fracture Other emphysema Surgical History Surgical History History of chest tube placement S/P thoracentesis H/O breast surgery History of heart artery stent 2017 Family History Family History Sibling Hypertension Family history of malignant neoplasm of breast in first degree relative Family history of dementia Father Family history of cardiovascular disease Cerebrovascular accident Mother Family history of cardiovascular disease Family history of malignant neoplasm of urinary bladder Social History Social History Smoking packs per day: 0.5 Smoking cigarettes per day: 10.0 Years smoked: 50 Smoking pack-years: 25.00 Smoking status: Current every day smoker Tobacco type: cigarettes Second hand tobacco smoke exposure: No Alcohol intake: current Drinks per week: 4 Substance use: never Substance use type: does not use Last use: 06/14/2024 Lack of Transportation: No Lack of Food: Never True Current Housing: I Have Housing Concerned About Future Housing: No Difficulty Paying Gas/Electric Bills: No Difficulty Paying for Meds: No Currently Unemployed: No Education: Decline to Answer Difficulty w/ Childcare or Family Care: No Living arrangements: alone Gender identity (if verbalized by the patient): Female Spiritual care concerns: No Meds Home Medications and Allergies Home Medications ?Medication ?Instructions ?Recorded ?Confirmed ?Type aspirin 81 mg tablet,delayed 81 mg PO DAILY 02/19/19 02/01/25 History release tacrolimus 0.1 % topical ointment 1 applic topical BID PRN PSORIASIS 03/20/20 02/01/25 History triamcinolone acetonide 0.1 % 1 applic topical BID PRN PSORIASIS 03/20/20 02/01/25 History topical cream sacubitril 24 mg-valsartan 26 mg 1 tablet PO BID 02/09/23 02/01/25 History tablet (Entresto) inhalational spacing device (Space #1 ea 04/26/23 02/01/25 Rx Chamber) thiamine HCl (vitamin B1) 100 mg 100 mg PO DAILY #100 tabs 06/16/23 02/01/25 Rx tablet atorvastatin 40 mg tablet 40 mg PO DAILY 08/22/24 02/01/25 History cholecalciferol (vitamin D3) 250 250 mcg PO DAILY #90 caps 08/22/24 02/01/25 Rx mcg (10,000 unit) capsule cyanocobalamin (vitamin B-12) 1,000 mcg PO DAILY #100 tabs 08/22/24 02/01/25 Rx 1,000 mcg tablet spironolactone 25 mg tablet 12.5 mg PO DAILY 08/22/24 02/01/25 History budesonide 160 mcg-glycopyr 9 See Rx Instructions .Route 11/06/24 02/01/25 Rx mcg-formot 4.8 mcg/actuation HFA .COMPLEX #10.7 grams inhaler (Breztri Aerosphere) ferrous sulfate 325 mg (65 mg 325 mg PO BID #180 tabs 11/06/24 02/01/25 Rx iron) tablet (FeroSul) albuterol sulfate 90 mcg/actuation 1 inh inhalation Q4H #8.5 grams 12/02/24 02/01/25 Rx aerosol inhaler apixaban 5 mg tablet (Eliquis) 5 mg PO BID #180 tabs 12/11/24 02/01/25 Rx ezetimibe 10 mg tablet (Zetia) 10 mg PO DAILY #30 tabs 12/13/24 02/01/25 Rx clobetasol 0.05 % topical cream 1 applic topical DAILY PRN itching 12/21/24 02/01/25 Rx #60 grams pregabalin 100 mg capsule (Lyrica) 100 mg PO BID #30 caps 12/21/24 02/01/25 Rx omeprazole 20 mg capsule,delayed 20 mg PO DAILY 02/01/25 02/01/25 History release Allergies Allergy/AdvReac Type Severity Reaction Status Date / Time roflumilast (From [facility]) Allergy Unknown Hives Verified 02/01/25 12:42 morphine AdvReac Unknown Nausea Verified 02/01/25 12:42 Vital Signs Vital Signs - 24 hr 02/01/25 10:47 02/01/25 11:58 02/01/25 12:53 Temperature 36.7 C Pulse Rate 123 H 97 98 Respiratory Rate 28 H 31 H 20 Blood Pressure 117/84 132/79 Pulse Oximetry 99 100 99 Oxygen Delivery 02/01/25 12:58 02/01/25 14:00 02/01/25 16:00 Temperature Pulse Rate 93 94 Respiratory Rate Blood Pressure Pulse Oximetry Oxygen Delivery Room Air 02/01/25 16:16 02/01/25 17:58 02/01/25 20:00 Temperature 36.6 C 37.0 C Pulse Rate 99 99 105 H Respiratory Rate 18 16 Blood Pressure 131/73 107/73 Pulse Oximetry 99 97 Oxygen Delivery 02/01/25 20:00 02/01/25 20:00 02/01/25 21:59 Temperature Pulse Rate 133 H 98 Respiratory Rate Blood Pressure Pulse Oximetry Oxygen Delivery Room Air 02/02/25 00:00 02/02/25 00:00 02/02/25 00:00 Temperature 36.8 C Pulse Rate 88 93 Respiratory Rate 15 Blood Pressure 137/79 Pulse Oximetry 98 Oxygen Delivery Room Air 02/02/25 02:00 02/02/25 04:00 02/02/25 04:00 Temperature Pulse Rate 102 H 89 Respiratory Rate Blood Pressure Pulse Oximetry Oxygen Delivery Room Air 02/02/25 04:00 02/02/25 06:00 02/02/25 07:53 Temperature 36.7 C Pulse Rate 89 90 91 Respiratory Rate 16 Blood Pressure 105/59 L Pulse Oximetry 95 96 Oxygen Delivery Room Air 02/02/25 07:53 02/02/25 08:00 02/02/25 08:00 Temperature 36.4 C Pulse Rate 91 93 Respiratory Rate 20 20 Blood Pressure 144/78 H Pulse Oximetry 98 Oxygen Delivery Room Air Exam Const: Other: Very pleasant frail looking lady appearing older than her stated age HENMT: Mouth: Yes moist mucous membranes Eyes: Sclera: sclerae normal Neck: Neck: supple and no JVD Other: No audible carotid bruit Resp: Effort & Inspection: normal respiratory effort Other: Tubular breath sounds in both lung larson no active wheezing rales or rhonchi Cardio: Rate: regular rate Rhythm: regular rhythm Other: PMI is nondisplaced first and second heart sounds are normal no audible murmur GI: GI Palp: Yes Soft to palpation Auscultation: normal bowel sounds Skin: General skin exam: normal color Neuro: Other: Alert and oriented x3 Extrem: Other: No edema, good perfusion Results Labs and Meds 02/02/25 04:10 02/02/25 04:10 Lab results: Cardiac Enzymes 02/01/25 02/01/25 Range/Units 11:35 13:58 Troponin I 0.049 H* 0.047 H* (0.000-0.034) ng/mL CBC 02/02/25 Range/Units 04:10 WBC 8.2 (4.5-10.0) K/mm3 RBC 3.12 L (4.2-5.4) M/mm3 Hgb 10.6 L (12.0-15.0) g/dL Hct 31.3 L (37.0-47.0) % Plt Count 360 (150-375) k/mm3 Lymph # (Auto) 0.85 L (0.9-3.2) K/mm3 [place] # (Auto) 1.3 H (0.1-0.6) K/mm3 Eos # (Auto) 0.0 (0-0.3) K/mm3 Baso # (Auto) 0.0 (0.0-0.1) K/mm3 Comprehensive Metabolic Panel 02/02/25 Range/Units 04:10 Sodium 130 L (137-145) mmol/L Potassium 3.1 L (3.4-5.0) mmol/L Chloride 95 L (98-107) mmol/L Carbon Dioxide 34 H (22-30) mmol/L BUN 17 (7-17) mg/dL Creatinine 0.56 L (0.7-1.0) mg/dL Glucose 139 H (65-110) mg/dL Calcium 8.1 L (8.4-10.2) mg/dL Intake and Output 02/01/25 02/02/25 02/02/25 23:59 07:59 15:59 Intake Total 150 222 730 Output Total 550 200 1 Balance -400 22 729 Intake: IV 250 Vancomycin HCl 1,000 mg In 250 Sodium Chloride 0.9% IV 250 ml @ 250 mls/hr IVPB Q18H [facility] Rx#: [id number] Oral 150 222 480 Output: Urine 550 200 Output, Urine/Stool Mix Amount 1 Other: Number of Bowel Movements Today 1 Patient Weight 02/02/25 23:59 Weight 51.2 kg
[2025-02-02] MEDS: POTASSIUM CHLORIDE 20 MEQ ER TABLET 40 MEQ PO ×2 (10:51→17:31)
[2025-02-02 14:30] LABS: Potassium 3.3 mmol/L (3.4-5.0)
--- NOTE | 2025-02-02 17:13 | P.PNIM_ITS ---
Progress Note: A&P Assessment and Plan (1) Pneumonia: Qualifiers: Laterality: right Lung location: lower lobe of lung Pneumonia type: due to unspecified organism Qualified Code(s): J18.9 - Pneumonia, unspecified organism Code(s): J18.9 - Pneumonia, unspecified organism Status: Acute Assessment and Plan: Presents with a few day history of increasing dyspnea accompanied by a substernal chest pain. Had the flu roughly 2 weeks ago. Chest x-ray with probable small right pleural effusion, emphysema with hyperinflation. Chest CT right lower lobe bronchial pneumonia superimposed on chronic lung disease. Redemonstration of left lung nodule. Patient with history of COPD and empyema in July 2024. Improving. - started on Rocephin, doxycycline vancomycin on 02/01 - can consider downgrading to cefpodoxime/doxycycline oral and discharging if continues to improve. - MRSA PCR negative - currently not requiring supplemental O2 (2) Elevated troponin: Code(s): R79.89 - Other specified abnormal findings of blood chemistry Status: Chronic Assessment and Plan: Patient presents with 3 day history of dyspnea accompanied by intermittent nonradiating substernal chest pain described as sharp and lasting only a couple seconds. No acute ischemia on serial EKGs. - EKG, initial: Initial EKG sinus tachycardia with incomplete left bundle-branch block. No significant change from prior. Initial troponin elevated at 0.059. Patient has a history of elevated troponin without cardiac ischemia. Likely elevated due to demand ischemia. - EKG, repeat (1): AFib with incomplete left bundle-branch block - EKG, repeat (2): Sinus tach with rate of 101 - Chest x-ray with probable small right pleural effusion, emphysema with hyperinflation. - Troponin: 0.059-0.049-0.047 - 324 mg ASA in ED - cardiology consulted: recommends outpatient follow up, no ischemic workup at this time as suspicion is low - continue atorvastatin - previous echo on 01/26/2023 shows an EF of 43% (3) COPD (chronic obstructive pulmonary disease): Code(s): J44.9 - Chronic obstructive pulmonary disease, unspecified Status: Acute Assessment and Plan: Emphysema with hyperinflation noted on chest x-ray. Patient found to be wheezy in ED. - Pilar Q6H p.r.n. - substitute breztri for trilogy while inpatient - home medications: Breztri and albuterol p.r.n. - 125 mg methylprednisolone, hour long DuoNeb, and 2 g magnesium sulfate in ED - currently not requiring supplemental O2 (4) Atrial fibrillation: Qualifiers: Atrial fibrillation type: paroxysmal Qualified Code(s): I48.0 - Paroxysmal atrial fibrillation Code(s): I48.91 - Unspecified atrial fibrillation Status: Chronic Assessment and Plan: Chronic AFib with heart rate frequently greater than 100 documented over several years. Asymptomatic -continue apixaban (5) Ischemic cardiomyopathy: Code(s): I25.5 - Ischemic cardiomyopathy Status: Chronic Assessment and Plan: History of CAD status post stent in 2018. Patient presents today with intermittent substernal sharp chest pain with elevated troponin. Pain does not appear to be cardiac related. Cardiology agrees, does not recommend ischemic workup at this time. 02/02: BP soft today after dose of entresto. AM dose held, PM reduced to 1/2, however may need to be held. Given hypotension, will get lactic acid with AM labs to rule out sepsis. Suspicion is low for now as patient is clinically improving. - previous echo on 01/26/2023 shows an EF of 43% -continue Entresto, Lasix, spironolactone. Hold BP meds if not tolerated. -outpatient cardiology on DC (6) Hyperlipidemia: Qualifiers: Hyperlipidemia type: unspecified Qualified Code(s): E78.5 - Hyperlipidemia, unspecified Code(s): E78.5 - Hyperlipidemia, unspecified Status: Chronic Assessment and Plan: Continue Zetia, atorvastatin Plan Consider DC tomorrow if improving. Will need to monitor BP however. DVT prophylaxis: apixaban Diet: Heart healthy Subjective Date/time seen: 02/02/25 17:13 Interval history: 74-year-old female with past medical history of COPD, ischemic cardiomyopathy, hyperlipidemia, hypertension, empyema presents to the ED on 02/01/2025 with complaints of chest pain and shortness of breath. Patient reportedly had the flu 2 weeks ago. She is chronically short of breath but her dyspnea has increased over the past few days. She has also been having intermittent episodes of sharp substernal chest pains over the past few days. The chest pain lasts for a couple of seconds resolving. She states the pain can happen with inspiration but also happens randomly. Denies productive cough, fever. Patient was hospitalized in July 2024 with empyema after an attempted CT guided left upper lobe nodule in June. Patient does have history of LA in 2018 with 1 stent placed. Initial vital signs 146/85, HR 103, respirations 22, afebrile and 100% on room air. Hematology with no leukocytosis, baseline iron deficiency anemia. Sodium 131, chloride 95, BUN 18, creatinine 0.48. AST 169, ALT 249. Initial troponin 0.049. BNP 53903. Initial EKG sinus tachycardia with incomplete left bundle-branch block. No significant change from prior. Chest x-ray with probable small right pleural effusion, emphysema with hyperinflation. Chest CT right lower lobe bronchial pneumonia superimposed on chronic lung disease. Redemonstration of left lung nodule. 02/02/2025: Feeling much improved, starting to have productive cough with yellow sputum. Seen by cardiology for chest pain, no acute ischemic workup at this time recommended. Review of Systems Review of Systems: All systems reviewed & are unremarkable except as noted in HPI and below Exam Narrative: GENERAL: non-toxic appearing, in no acute distress. HEAD: Normocephalic, atraumatic. EYES: PERRLA. Conjunctivae clear. NOSE: Normal no drainage. THROAT: Pharynx clear, no exudate. NECK: Trachea midline. No adenopathy, no masses. RESPIRATORY: Airway patent, respirations nonlabored. Decreased breath sounds throughout CARDIOVASCULAR: Irregular rate and rhythm BREASTS: Defer GASTROINTESTINAL: Abdomen is soft and nontender. No organomegaly. Bowel sounds normal in all quadrants. GENITOURINARY: Defer MUSCULOSKELETAL: Moves all extremities. No gross deformities. No edema. SKIN: Warm, dry, normal color. NEURO: A&O X4. Speech clear PSYCHIATRIC: Normal interaction Objective Data Vital Signs Vital Signs: Vital Signs - 24 hr 02/01/25 17:58 02/01/25 20:00 02/01/25 20:00 Temperature 98.6 F Pulse Rate 99 105 H Respiratory Rate 16 Blood Pressure 107/73 Pulse Oximetry 97 Oxygen Delivery Room Air 02/01/25 20:00 02/01/25 21:59 02/02/25 00:00 Temperature 98.2 F Pulse Rate 133 H 98 88 Respiratory Rate 15 Blood Pressure 137/79 Pulse Oximetry 98 Oxygen Delivery 02/02/25 00:00 02/02/25 00:00 02/02/25 02:00 Temperature Pulse Rate 93 102 H Respiratory Rate Blood Pressure Pulse Oximetry Oxygen Delivery Room Air 02/02/25 04:00 02/02/25 04:00 02/02/25 04:00 Temperature 98.1 F Pulse Rate 89 89 Respiratory Rate 16 Blood Pressure 105/59 L Pulse Oximetry 95 Oxygen Delivery Room Air 02/02/25 06:00 02/02/25 07:53 02/02/25 07:53 Temperature Pulse Rate 90 91 91 Respiratory Rate 20 Blood Pressure Pulse Oximetry 96 Oxygen Delivery Room Air 02/02/25 08:00 02/02/25 08:00 02/02/25 08:00 Temperature 97.6 F Pulse Rate 93 92 Respiratory Rate 20 Blood Pressure 144/78 H Pulse Oximetry 98 Oxygen Delivery Room Air 02/02/25 10:00 02/02/25 12:00 02/02/25 12:00 Temperature 98.0 F Pulse Rate 94 108 H Respiratory Rate 20 Blood Pressure 82/48 L Pulse Oximetry 97 Oxygen Delivery Room Air 02/02/25 12:00 02/02/25 14:00 02/02/25 16:00 Temperature Pulse Rate 103 H 96 Respiratory Rate Blood Pressure Pulse Oximetry Oxygen Delivery Room Air 02/02/25 16:00 Temperature Pulse Rate Respiratory Rate Blood Pressure 89/50 L Pulse Oximetry Oxygen Delivery Intake/Output Intake/Output: Intake & Output 01/30/25 01/31/25 02/01/25 02/02/25 23:59 23:59 23:59 23:59 Intake Total 500 1452 Output Total 550 701 Balance -50 751 Meds/Results Medications: Active Medications Generic Name Dose Route Start Last Admin Trade Name Freq PRN Reason Stop Dose Admin Acetaminophen 650 mg 02/01/25 13:03 Acetaminophen 325 Mg Tablet PO Q6H PRN Mild Pain (1-3) or Fever Albuterol/Ipratropium 3 ml 02/01/25 14:00 Ipratropium 0.5 Mg/Albuterol Sulfate 2.5 Mg (Base) Ampul.Neb 3 Ml INHALATION Q6HRT PRN Shortness Of Breath Apixaban 5 mg 02/01/25 17:00 02/02/25 16:46 Apixaban 5 Mg Tablet PO 5 mg BID ALESSIO Administration Aspirin 81 mg 02/02/25 09:00 02/02/25 09:06 Aspirin 81 Mg Enteric Tablet PO 81 mg DAILY ALESSIO Administration Atorvastatin Calcium 40 mg 02/02/25 09:00 02/02/25 09:06 Atorvastatin 40 Mg Tablet PO 40 mg DAILY ALESSIO Administration Cyanocobalamin 1,000 mcg 02/02/25 09:00 02/02/25 09:06 Cyanocobalamin 1,000 Mcg Tablet PO 1,000 mcg DAILY ALESSIO Administration Ezetimibe 10 mg 02/02/25 09:00 02/02/25 09:06 Ezetimibe 10 Mg Tablet PO 10 mg DAILY ALESSIO Administration Ferrous Sulfate 325 mg 02/01/25 17:00 02/02/25 16:46 Ferrous Sulfate 325 Mg Tablet PO 325 mg BIDWM ALESSIO Administration Fluticasone/Umeclidinium/Vilanterol 1 puff 02/01/25 14:00 02/02/25 07:53 Fluticasone/Umeclidin/Vilanter 100-62.5-25 Mcg Ellipta INHALATION 1 puff DAILYRT ALESSIO Administration Furosemide 40 mg 02/01/25 14:00 02/02/25 09:06 Furosemide Inj 40 Mg/4 Ml Vial IV PUSH 40 mg DAILY ALESSIO Administration Ceftriaxone Sodium 1 gm/ 50 mls @ 100 mls/hr 02/02/25 10:00 02/02/25 09:09 Sodium Chloride IVPB 100 mls/hr Q24H ALESSIO Administration Doxycycline Hyclate 100 mg/ 100 mls @ 100 mls/hr 02/02/25 02:00 02/02/25 16:00 Sodium Chloride IVPB Infused Q12H ALESSIO Infusion Vancomycin HCl 1,000 mg/ 250 mls @ 250 mls/hr 02/02/25 07:00 02/02/25 08:00 Sodium Chloride IVPB Infused Q18H ALESSIO Infusion Pantoprazole Sodium 40 mg 02/02/25 09:00 02/02/25 09:06 Pantoprazole 40 Mg Tablet PO 40 mg QAM ALESSIO Administration Polyethylene Glycol 17 gm 02/01/25 13:47 02/01/25 15:14 Polyethylene Glycol 3350 17 Gm Powd.Pack PO 17 gm QAM PRN Administration Constipation Pregabalin 100 mg 02/01/25 17:00 02/02/25 16:46 Pregabalin (*Crx) 50 Mg Capsule PO 100 mg BID ALESSIO Administration Sacubitril/Valsartan 1 tab 02/02/25 21:00 Sacubitril/Valsartan 12-13 Mg Tablet PO Q12HR ALESSIO Spironolactone 12.5 mg 02/02/25 09:00 02/02/25 09:05 Spironolactone 12.5 Mg Tablet PO 12.5 mg DAILY ALESSIO Administration Thiamine HCl 100 mg 02/02/25 09:00 02/02/25 09:05 Thiamine Hcl 100 Mg Tablet PO 100 mg DAILY ALESISO Administration Radiology Results: ITS Impressions Chest X-Ray 02/01/25 10:02 IMPRESSION: 1. No acute cardiopulmonary findings given portable technique. 2. Probable small chronic right pleural effusion. Chest CT 02/01/25 10:19 IMPRESSION: 1. Right lower lobe bronchopneumonia superimposed on chronic lung disease. 2. Left lung nodule concerning for neoplasm. PET CT is recommended Labs Labs: Laboratory Results - last 24 hr 02/02/25 02/02/25 04:10 14:01 WBC 8.2 RBC 3.12 L Hgb 10.6 L Hct 31.3 L MCV 100.3 H MCH 34.0 MCHC 33.9 RDW 15.2 H Plt Count 360 MPV 9.6 Immature Gran % (Auto) 0.5 Neut % (Auto) 72.7 Lymph % (Auto) 10.[address] [place] % (Auto) 16.3 H Eos % (Auto) 0.0 Baso % (Auto) 0.1 L Lymph # (Auto) 0.[address] # (Auto) 1.3 H Eos # (Auto) 0.0 Baso # (Auto) 0.0 Abs Immat Gran (auto) 0.04 H Absolute Neuts (auto) 5.9 Absolute Nucleated RBC 0.000 Nucleated RBC % 0.0 Sodium 130 L Potassium 3.1 L 3.3 L Chloride 95 L Carbon Dioxide 34 H Anion Gap 1 L BUN 17 Creatinine 0.56 L Estim Creat Clear Calc 57 Estimated GFR > 60 Glucose 139 H Calcium 8.1 L Hospitalist MIPS Advance Care Plan I have confirmed that the patient's Advanced Care Plan is present, code status is documented, or surrogate decision maker is listed in patient medical record.: Yes Medication Reconciliation I have utilized all available resources to obtain, update and review the patients current medications (includes all prescriptions, OTC, herbals, cannabis, and nutritional supplements).: Yes
[2025-02-02] MEDS: ALBUMIN HUMAN 25% 25 GM/100 ML 100 ML IVPB (21:17)
--- NOTE | 2025-02-02 23:43 | P.PNCROSS_ITS ---
Event Note Event Note Event Note: Is reported that patient's blood pressure is 83/50. She is asymptomatic. Dominguez jeff albumin was ordered for the patient. Continue to monitor vital signs closely. She improved slightly with the 1st order of albumin therefore a 2nd order was placed for albumin.
[2025-02-03] VITALS (21 sets, daily range): BP systolic 85–116; BP diastolic 52–69; PULSE 79–121; RESP 16–23; TEMP 36.3–36.8; O2SAT 95–99
[2025-02-03] MEDS: DOXYCYCLINE IV 100 MG in SODIUM CHLORIDE 0.9% IV 100 ML IVPB ×2 (01:50→14:06)
[2025-02-03] MEDS: VANCOMYCIN 1,250 MG/NS 250 ML 1,250 MG/250 ML BAG 166.67 MG IVPB ×2 (02:53→14:06)
[2025-02-03 06:05] LABS: Hematocrit 35.7 % (37.0-47.0); Hemoglobin 11.7 g/dL (12.0-15.0); Immature Granulocyte Percent A 0.7 % (0-0.5); Lymphocytes Absolute Auto 1.83 K/mm3 (0.9-3.2); Mean Corpuscular HGB Conc 32.8 g/dl (32-36); Mean Corpuscular Hemoglobin 34.4 pg (26-34); Mean Corpuscular Volume 105.0 fl (80-100); Nucleated Red Blood Cells Absolute Auto 0.000 K/mm3 (0.0-0.012); Nucleated Red Blood Cells Perc 0.0 % (0.0-0.2); Platelet Count Result 352 k/mm3 (150-375); Red Blood Count 3.40 M/mm3 (4.2-5.4); White Blood Count 6.0 K/mm3 (4.5-10.0)
[2025-02-03 06:19] LABS: Alanine Aminotransferase 201 U/L (6-35); Albumin Level 3.2 g/dL (3.5-5.1); Alkaline Phosphatase 60 U/L (38-126); Anion Gap 1 mmol/L (4-12); Aspartate Amino Transferase 131 U/L (14-36); Bilirubin,Total 0.4 mg/dL (0.2-1.3); Blood Urea Nitrogen 14 mg/dL (7-17); Calcium 8.3 mg/dL (8.4-10.2); Carbon Dioxide 33 mmol/L (22-30); Chloride 99 mmol/L (98-107); Estimated CRCL calculation 61 ml/min; Estimated Glomerular Filt Rate > 60; Glucose 108 mg/dL (65-110); Sodium 133 mmol/L (137-145); Total Protein 5.4 g/dL (6.3-8.2)
[2025-02-03 06:27] LABS: Potassium 3.8 mmol/L (3.4-5.0)
[2025-02-03] MEDS: FLUTICASONE/UMECLIDIN/VILANTER 100-62.5-25 MCG ELLIPTA 1 PUFF INHALATION (07:32)
[2025-02-03] MEDS: PREGABALIN (*CRX) 50 MG CAPSULE 100 MG PO ×2 (08:36→16:58)
[2025-02-03] MEDS: THIAMINE HCL 100 MG TABLET PO (08:36)
[2025-02-03] MEDS: PANTOPRAZOLE 40 MG TABLET PO (08:36)
[2025-02-03] MEDS: ATORVASTATIN 40 MG TABLET PO (08:37)
[2025-02-03] MEDS: APIXABAN 5 MG TABLET PO ×2 (08:37→16:58)
[2025-02-03] MEDS: CYANOCOBALAMIN 1,000 MCG TABLET 1000 MCG PO (08:37)
[2025-02-03] MEDS: FERROUS SULFATE 325 MG TABLET PO ×2 (08:37→16:58)
[2025-02-03] MEDS: EZETIMIBE 10 MG TABLET PO (08:37)
[2025-02-03] MEDS: ASPIRIN 81 MG ENTERIC TABLET PO (08:37)
[2025-02-03] MEDS: FUROSEMIDE 20 MG TABLET PO (10:34)
[2025-02-03] MEDS: cefTRIAXone 1 GM in SODIUM CHLORIDE 0.9% IV 50 ML 100 ML IVPB (10:34)
--- NOTE | 2025-02-03 11:18 | PC.NURSE ---
On 02/01/25, the [employer], [Mateusz Bull ], provided care and completed [facility] documentation on this patient. I have reviewed the [employer]'s documentation and agree with the findings.
--- NOTE | 2025-02-03 11:20 | PC.NURSE ---
At 1329 40mg Lasix given IVP by Severo Iqbal RN.
--- NOTE | 2025-02-03 13:23 | PCPTNOTE ---
attempted PT chandana, pt declined stating she is not getting up today, reported she got dizzy from standing earlier and does not want to again, I informed her it is important to keep moving so she keeps her strength, will follow
[2025-02-03] MEDS: IPRATROPIUM 0.5 MG/ALBUTEROL SULFATE 2.5 MG (BASE) AMPUL.NEB 3 ML INHALATION ×2 (13:46→20:30)
--- NOTE | 2025-02-03 16:46 | P.PNIM_ITS ---
Progress Note: A&P Assessment and Plan (1) Pneumonia: Qualifiers: Laterality: right Lung location: lower lobe of lung Pneumonia type: due to unspecified organism Qualified Code(s): J18.9 - Pneumonia, unspecified organism Code(s): J18.9 - Pneumonia, unspecified organism Status: Acute Assessment and Plan: Presents with a few day history of increasing dyspnea accompanied by a substernal chest pain. Had the flu roughly 2 weeks ago. Chest x-ray with probable small right pleural effusion, emphysema with hyperinflation. Chest CT right lower lobe bronchial pneumonia superimposed on chronic lung disease. Redemonstration of left lung nodule. Patient with history of COPD and empyema in July 2024. Improving. - started on Rocephin, doxycycline vancomycin on 02/01 - can consider downgrading to cefpodoxime/doxycycline oral and discharging if continues to improve. - MRSA PCR negative - currently not requiring supplemental O2 (2) Elevated troponin: Code(s): R79.89 - Other specified abnormal findings of blood chemistry Status: Chronic Assessment and Plan: Patient presents with 3 day history of dyspnea accompanied by intermittent nonradiating substernal chest pain described as sharp and lasting only a couple seconds. No acute ischemia on serial EKGs. - EKG, initial: Initial EKG sinus tachycardia with incomplete left bundle-branch block. No significant change from prior. Initial troponin elevated at 0.059. Patient has a history of elevated troponin without cardiac ischemia. Likely elevated due to demand ischemia. - EKG, repeat (1): AFib with incomplete left bundle-branch block - EKG, repeat (2): Sinus tach with rate of 101 - Chest x-ray with probable small right pleural effusion, emphysema with hyperinflation. - Troponin: 0.059-0.049-0.047 - 324 mg ASA in ED - cardiology consulted: recommends outpatient follow up, no ischemic workup at this time as suspicion is low - continue atorvastatin - previous echo on 01/26/2023 shows an EF of 43% (3) COPD (chronic obstructive pulmonary disease): Code(s): J44.9 - Chronic obstructive pulmonary disease, unspecified Status: Acute Assessment and Plan: Emphysema with hyperinflation noted on chest x-ray. Patient found to be wheezy in ED. Concern patient may having exacerbation. - Pilar Q6H p.r.n. - substitute breztri for trilogy while inpatient - added dose of methylprednisolone, if this helps may add standing order to assist in clearance of exacerbation. Currently on Doxycycline for PNA. - home medications: Breztri and albuterol p.r.n. - 125 mg methylprednisolone, hour long DuoNeb, and 2 g magnesium sulfate in ED - currently not requiring supplemental O2 (4) Atrial fibrillation: Qualifiers: Atrial fibrillation type: paroxysmal Qualified Code(s): I48.0 - Paroxysmal atrial fibrillation Code(s): I48.91 - Unspecified atrial fibrillation Status: Chronic Assessment and Plan: Chronic AFib with heart rate frequently greater than 100 documented over several years. Asymptomatic -continue apixaban (5) Ischemic cardiomyopathy: Code(s): I25.5 - Ischemic cardiomyopathy Status: Chronic Assessment and Plan: History of CAD status post stent in 2018. Patient presents today with intermittent substernal sharp chest pain with elevated troponin. Pain does not appear to be cardiac related. Cardiology agrees, does not recommend ischemic workup at this time. 02/02: BP soft today after dose of entresto. AM dose held, PM reduced to 1/2, however may need to be held. Given hypotension, will get lactic acid with AM labs to rule out sepsis. Suspicion is low for now as patient is clinically improving. - previous echo on 01/26/2023 shows an EF of 43% -continue Entresto, Lasix, spironolactone. Hold BP meds if not tolerated. -outpatient cardiology on DC (6) Hyperlipidemia: Qualifiers: Hyperlipidemia type: unspecified Qualified Code(s): E78.5 - Hyperlipidemia, unspecified Code(s): E78.5 - Hyperlipidemia, unspecified Status: Chronic Assessment and Plan: Continue Zetia, atorvastatin Plan DVT prophylaxis: apixaban Diet: Heart healthy Subjective Date/time seen: 02/03/25 16:46 Interval history: 74-year-old female with past medical history of COPD, ischemic cardiomyopathy, hyperlipidemia, hypertension, empyema presents to the ED on 02/01/2025 with complaints of chest pain and shortness of breath. Patient reportedly had the flu 2 weeks ago. She is chronically short of breath but her dyspnea has increased over the past few days. She has also been having intermittent episodes of sharp substernal chest pains over the past few days. The chest pain lasts for a couple of seconds resolving. She states the pain can happen with inspiration but also happens randomly. Denies productive cough, fever. Patient was hospitalized in July 2024 with empyema after an attempted CT guided left upper lobe nodule in June. Patient does have history of OK in 2018 with 1 stent placed. Initial vital signs 146/85, HR 103, respirations 22, afebrile and 100% on room air. Hematology with no leukocytosis, baseline iron deficiency anemia. Sodium 131, chloride 95, BUN 18, creatinine 0.48. AST 169, ALT 249. Initial troponin 0.049. BNP 22354. Initial EKG sinus tachycardia with incomplete left bundle-branch block. No significant change from prior. Chest x-ray with probable small right pleural effusion, emphysema with hyperinflation. Chest CT right lower lobe bronchial pneumonia superimposed on chronic lung disease. Redemonstration of left lung nodule. 02/02/2025: Feeling much improved, starting to have productive cough with yellow sputum. Seen by cardiology for chest pain, no acute ischemic workup at this time recommended. 02/03: BP had been low the day prior, entresto had to be stopped. Required albumin infusion overnight to bring back BP, which stabilized through the morning. Entresto/BP meds now on hold. Patient has been having productive cough, could be PNA but given it is being treated, may be element of COPD. Jelani Quezada daily ordered already, will give dose of methylprednisolone to counter element of COPD, and assess accordingly. Review of Systems Review of Systems: All systems reviewed & are unremarkable except as noted in HPI and below Exam Narrative: GENERAL: non-toxic appearing, in no acute distress. HEAD: Normocephalic, atraumatic. EYES: PERRLA. Conjunctivae clear. NOSE: Normal no drainage. THROAT: Pharynx clear, no exudate. NECK: Trachea midline. No adenopathy, no masses. RESPIRATORY: Airway patent, respirations nonlabored. Decreased breath sounds throughout CARDIOVASCULAR: Irregular rate and rhythm BREASTS: Defer GASTROINTESTINAL: Abdomen is soft and nontender. No organomegaly. Bowel sounds normal in all quadrants. GENITOURINARY: Defer MUSCULOSKELETAL: Moves all extremities. No gross deformities. No edema. SKIN: Warm, dry, normal color. NEURO: A&O X4. Speech clear PSYCHIATRIC: Normal interaction Objective Data Vital Signs Vital Signs: Vital Signs - 24 hr 02/02/25 17:31 02/02/25 18:00 02/02/25 20:00 Temperature 98.6 F 97.7 F Pulse Rate 90 91 92 Respiratory Rate 18 17 Blood Pressure 85/26 L Pulse Oximetry 96 97 Oxygen Delivery Fraction of Inspired Oxygen 02/02/25 20:00 02/02/25 20:00 02/02/25 22:00 Temperature Pulse Rate 93 90 Respiratory Rate Blood Pressure Pulse Oximetry Oxygen Delivery Room Air Fraction of Inspired Oxygen 02/02/25 23:00 02/02/25 23:19 02/03/25 00:00 Temperature 97.7 F Pulse Rate 82 Respiratory Rate 16 Blood Pressure 83/50 L 85/54 L Pulse Oximetry 98 Oxygen Delivery Room Air Fraction of Inspired Oxygen 02/03/25 00:00 02/03/25 01:57 02/03/25 02:00 Temperature Pulse Rate 88 82 Respiratory Rate Blood Pressure 111/66 Pulse Oximetry Oxygen Delivery Fraction of Inspired Oxygen 02/03/25 03:55 02/03/25 04:00 02/03/25 04:00 Temperature 97.7 F Pulse Rate 84 80 Respiratory Rate 19 Blood Pressure 116/62 Pulse Oximetry 95 Oxygen Delivery Room Air Fraction of Inspired Oxygen 02/03/25 06:00 02/03/25 07:23 02/03/25 07:50 Temperature 97.6 F Pulse Rate 79 87 95 Respiratory Rate 20 17 Blood Pressure 116/69 Pulse Oximetry 99 99 Oxygen Delivery Room Air Fraction of Inspired Oxygen 21 02/03/25 08:00 02/03/25 08:00 02/03/25 10:00 Temperature Pulse Rate 89 97 Respiratory Rate Blood Pressure Pulse Oximetry Oxygen Delivery Room Air Fraction of Inspired Oxygen 02/03/25 11:40 02/03/25 11:44 02/03/25 12:00 Temperature 98.3 F Pulse Rate 106 H Respiratory Rate 20 Blood Pressure 93/52 L Pulse Oximetry 97 Oxygen Delivery Room Air Room Air Fraction of Inspired Oxygen 02/03/25 12:00 02/03/25 13:45 02/03/25 13:55 Temperature Pulse Rate 121 H 89 95 Respiratory Rate 20 20 Blood Pressure Pulse Oximetry Oxygen Delivery Fraction of Inspired Oxygen 02/03/25 14:00 Temperature Pulse Rate 101 H Respiratory Rate Blood Pressure Pulse Oximetry Oxygen Delivery Fraction of Inspired Oxygen Intake/Output Intake/Output: Intake & Output 01/31/25 02/01/25 02/02/25 02/03/25 23:59 23:59 23:59 23:59 Intake Total 500 2262 1445 Output Total 550 951 250 Balance -50 1311 1195 Meds/Results Medications: Active Medications Generic Name Dose Route Start Last Admin Trade Name Freq PRN Reason Stop Dose Admin Acetaminophen 650 mg 02/01/25 13:03 Acetaminophen 325 Mg Tablet PO Q6H PRN Mild Pain (1-3) or Fever Albuterol/Ipratropium 3 ml 02/03/25 14:00 02/03/25 13:46 Ipratropium 0.5 Mg/Albuterol Sulfate 2.5 Mg (Base) Ampul.Neb 3 Ml INHALATION 3 ml Q6HRT ALESSIO Administration Apixaban 5 mg 02/01/25 17:00 02/03/25 08:37 Apixaban 5 Mg Tablet PO 5 mg BID ALESSIO Administration Aspirin 81 mg 02/02/25 09:00 02/03/25 08:37 Aspirin 81 Mg Enteric Tablet PO 81 mg DAILY ALESSIO Administration Atorvastatin Calcium 40 mg 02/02/25 09:00 02/03/25 08:37 Atorvastatin 40 Mg Tablet PO 40 mg DAILY ALESSIO Administration Cyanocobalamin 1,000 mcg 02/02/25 09:00 02/03/25 08:37 Cyanocobalamin 1,000 Mcg Tablet PO 1,000 mcg DAILY ALESSIO Administration Ezetimibe 10 mg 02/02/25 09:00 02/03/25 08:37 Ezetimibe 10 Mg Tablet PO 10 mg DAILY ALESSIO Administration Ferrous Sulfate 325 mg 02/01/25 17:00 02/03/25 08:37 Ferrous Sulfate 325 Mg Tablet PO 325 mg BIDWM ALESSIO Administration Fluticasone/Umeclidinium/Vilanterol 1 puff 02/01/25 14:00 02/03/25 07:32 Fluticasone/Umeclidin/Vilanter 100-62.5-25 Mcg Ellipta INHALATION 1 puff DAILYRT ALESSIO Administration Furosemide 20 mg 02/03/25 09:00 02/03/25 10:34 Furosemide 20 Mg Tablet PO 20 mg DAILY ALESSIO Administration Ceftriaxone Sodium 1 gm/ 50 mls @ 100 mls/hr 02/02/25 10:00 02/03/25 10:34 Sodium Chloride IVPB 100 mls/hr Q24H ALESSIO Administration Doxycycline Hyclate 100 mg/ 100 mls @ 100 mls/hr 02/02/25 02:00 02/03/25 14:06 Sodium Chloride IVPB 100 mls/hr Q12H ALESSIO Administration Vancomycin HCl 1,250 mg in 250 mls @ 166.667 mls/hr 02/03/25 02:00 02/03/25 14:06 Vancomycin 1,250 Mg/Ns 250 Ml IVPB 166.67 mls/hr Q12H ALESSIO Administration Pantoprazole Sodium 40 mg 02/02/25 09:00 02/03/25 08:36 Pantoprazole 40 Mg Tablet PO 40 mg QAM ALESSIO Administration Polyethylene Glycol 17 gm 02/01/25 13:47 02/01/25 15:14 Polyethylene Glycol 3350 17 Gm Powd.Pack PO 17 gm QAM PRN Administration Constipation Pregabalin 100 mg 02/01/25 17:00 02/03/25 08:36 Pregabalin (*Crx) 50 Mg Capsule PO 100 mg BID ALESSIO Administration Sacubitril/Valsartan 1 tab 02/02/25 21:00 02/03/25 08:54 Sacubitril/Valsartan 12-13 Mg Tablet PO Not Given Q12HR ALESSIO Spironolactone 12.5 mg 02/02/25 09:00 02/03/25 08:36 Spironolactone 12.5 Mg Tablet PO 12.5 mg DAILY ALESSIO Administration Thiamine HCl 100 mg 02/02/25 09:00 02/03/25 08:36 Thiamine Hcl 100 Mg Tablet PO 100 mg DAILY ALESSIO Administration Radiology Results: ITS Impressions Chest X-Ray 02/01/25 10:02 IMPRESSION: 1. No acute cardiopulmonary findings given portable technique. 2. Probable small chronic right pleural effusion. Chest CT 02/01/25 10:19 IMPRESSION: 1. Right lower lobe bronchopneumonia superimposed on chronic lung disease. 2. Left lung nodule concerning for neoplasm. PET CT is recommended Labs Labs: Laboratory Results - last 24 hr 02/03/25 02/03/25 02/03/25 00:42 05:58 05:59 WBC 6.0 RBC 3.40 L Hgb 11.7 L Hct 35.7 L MCV 105.0 H MCH 34.4 H MCHC 32.8 RDW 15.1 H Plt Count 352 MPV 8.8 Immature Gran % (Auto) 0.7 H Neut % (Auto) 54.2 Lymph % (Auto) 30.4 Daniels % (Auto) 13.5 H Eos % (Auto) 0.7 Baso % (Auto) 0.5 Lymph # (Auto) 1.83 Daniels # (Auto) 0.8 H Eos # (Auto) 0.0 Baso # (Auto) 0.0 Abs Immat Gran (auto) 0.04 H Absolute Neuts (auto) 3.3 Absolute Nucleated RBC 0.000 Nucleated RBC % 0.0 Sodium 133 L Potassium 3.8 Chloride 99 Carbon Dioxide 33 H Anion Gap 1 L BUN 14 Creatinine 0.59 L Estim Creat Clear Calc 61 Estimated GFR > 60 Glucose 108 Lactic Acid 2.2 H Calcium 8.3 L Total Bilirubin 0.4 AST 131 H ALT 201 H Alkaline Phosphatase 60 Total Protein 5.4 L Albumin 3.2 L Vancomycin Trough 8.9 L 02/03/25 08:14 WBC RBC Hgb Hct MCV MCH MCHC RDW Plt Count MPV Immature Gran % (Auto) Neut % (Auto) Lymph % (Auto) Daniels % (Auto) Eos % (Auto) Baso % (Auto) Lymph # (Auto) Daniels # (Auto) Eos # (Auto) Baso # (Auto) Abs Immat Gran (auto) Absolute Neuts (auto) Absolute Nucleated RBC Nucleated RBC % Sodium Potassium Chloride Carbon Dioxide Anion Gap BUN Creatinine Estim Creat Clear Calc Estimated GFR Glucose Lactic Acid 2.3 H Calcium Total Bilirubin AST ALT Alkaline Phosphatase Total Protein Albumin Vancomycin Trough Hospitalist MIPS Advance Care Plan I have confirmed that the patient's Advanced Care Plan is present, code status is documented, or surrogate decision maker is listed in patient medical record.: Yes Medication Reconciliation I have utilized all available resources to obtain, update and review the patients current medications (includes all prescriptions, OTC, herbals, cannabis, and nutritional supplements).: Yes
[2025-02-03] MEDS: ACETAMINOPHEN 325 MG TABLET 650 MG PO (16:58)
[2025-02-04] VITALS (18 sets, daily range): BP systolic 96–118; BP diastolic 58–68; PULSE 65–145; RESP 17–20; TEMP 36.3–36.7; O2SAT 97–100
[2025-02-04] MEDS: DOXYCYCLINE IV 100 MG in SODIUM CHLORIDE 0.9% IV 100 ML IVPB (01:09)
[2025-02-04] MEDS: IPRATROPIUM 0.5 MG/ALBUTEROL SULFATE 2.5 MG (BASE) AMPUL.NEB 3 ML INHALATION ×4 (02:09→21:08)
[2025-02-04] MEDS: VANCOMYCIN 1,250 MG/NS 250 ML 1,250 MG/250 ML BAG 250 MG IVPB (02:10)
[2025-02-04 04:10] LABS: Hematocrit 32.2 % (37.0-47.0); Hemoglobin 10.4 g/dL (12.0-15.0); Immature Granulocyte Percent A 0.8 % (0-0.5); Lymphocytes Absolute Auto 0.19 K/mm3 (0.9-3.2); Mean Corpuscular HGB Conc 32.3 g/dl (32-36); Mean Corpuscular Hemoglobin 34.0 pg (26-34); Mean Corpuscular Volume 105.2 fl (80-100); Nucleated Red Blood Cells Absolute Auto 0.000 K/mm3 (0.0-0.012); Nucleated Red Blood Cells Perc 0.0 % (0.0-0.2); Platelet Count Result 347 k/mm3 (150-375); Red Blood Count 3.06 M/mm3 (4.2-5.4); White Blood Count 3.6 K/mm3 (4.5-10.0)
[2025-02-04 04:40] LABS: Alanine Aminotransferase 170 U/L (6-35); Albumin Level 3.0 g/dL (3.5-5.1); Alkaline Phosphatase 67 U/L (38-126); Anion Gap 2 mmol/L (4-12); Aspartate Amino Transferase 73 U/L (14-36); Bilirubin,Total 0.3 mg/dL (0.2-1.3); Blood Urea Nitrogen 16 mg/dL (7-17); Calcium 7.9 mg/dL (8.4-10.2); Carbon Dioxide 29 mmol/L (22-30); Chloride 100 mmol/L (98-107); Estimated CRCL calculation 51 ml/min; Estimated Glomerular Filt Rate > 60; Glucose 190 mg/dL (65-110); Potassium 3.8 mmol/L (3.4-5.0); Sodium 131 mmol/L (137-145); Total Protein 5.3 g/dL (6.3-8.2)
[2025-02-04 04:52] LABS: Procalcitonin 0.1 ng/mL
[2025-02-04] MEDS: FLUTICASONE/UMECLIDIN/VILANTER 100-62.5-25 MCG ELLIPTA 1 PUFF INHALATION (08:23)
[2025-02-04] MEDS: CYANOCOBALAMIN 1,000 MCG TABLET 1000 MCG PO (10:08)
[2025-02-04] MEDS: ASPIRIN 81 MG ENTERIC TABLET PO (10:08)
[2025-02-04] MEDS: ATORVASTATIN 40 MG TABLET PO (10:08)
[2025-02-04] MEDS: APIXABAN 5 MG TABLET PO ×2 (10:08→16:12)
[2025-02-04] MEDS: FERROUS SULFATE 325 MG TABLET PO ×2 (10:08→16:12)
[2025-02-04] MEDS: THIAMINE HCL 100 MG TABLET PO (10:09)
[2025-02-04] MEDS: EZETIMIBE 10 MG TABLET PO (10:09)
[2025-02-04] MEDS: PANTOPRAZOLE 40 MG TABLET PO (10:09)
[2025-02-04] MEDS: FUROSEMIDE 20 MG TABLET PO (10:09)
[2025-02-04] MEDS: PREGABALIN (*CRX) 50 MG CAPSULE 100 MG PO ×2 (10:09→16:12)
[2025-02-04] MEDS: cefTRIAXone 1 GM in SODIUM CHLORIDE 0.9% IV 50 ML 100 ML IVPB (10:10)
--- NOTE | 2025-02-04 11:14 | PCNFU ---
Nutrition Follow-Up Complete: Severe Protein Calorie Malnutrition as related to inadequate protein-energy intake with increased protein energy needs in setting of chronic disease as evidenced by minimal oral intake for > 1-2 months; significant weight loss of 14% (17 ibs) in 6 months; severe subcutaneous fat loss (orbital fat pads) and severe muscle wasting (temporalis, clavicle, shoulder). Goal:Meet estimated nutritional needs Pt progressing towards goal Pt current nutrition is Heart healthy, Ensure TID. Nutrition recommendation: continue with current plan of care Last recorded weight is 54.5 kg. Bowel Motility: +BM 02/02 Labs Reviewed:Hgb:10.4, HCT:32.2, NA:131, Glu:190 Meds Noted: cassius calles Skin: WNL Additional Notes: Pt continues on a heart healthy diet, intake varied 25-100%, supplements in place. Encourage po intake, Agree with orders. Will monitor weight, labs, skin, diet orders, meds every 5 days.
[2025-02-04] MEDS: DOXYCYCLINE HYCLATE 100 MG TABLET PO ×2 (13:46→21:05)
--- NOTE | 2025-02-04 16:55 | P.PNIM_ITS ---
Assessment and Plan Assessment and Plan (1) Pneumonia: Qualifiers: Laterality: right Lung location: lower lobe of lung Pneumonia type: due to unspecified organism Qualified Code(s): J18.9 - Pneumonia, unspecified organism Code(s): J18.9 - Pneumonia, unspecified organism Status: Acute Assessment and Plan: Presents with a few day history of increasing dyspnea accompanied by a substernal chest pain. Had the flu roughly 2 weeks ago. Chest x-ray with probable small right pleural effusion, emphysema with hyperinflation. Chest CT right lower lobe bronchial pneumonia superimposed on chronic lung disease. Redemonstration of left lung nodule. Patient with history of COPD and empyema in July 2024. Improving. Persistent cough productive of sputum, however this may be more COPD than pneumonia. Nonetheless, did add additional pneumonia workup. - started on Rocephin, doxycycline vancomycin on 02/01 - downgrading to augmentin/doxycycline oral - MRSA PCR negative - currently not requiring supplemental O2 - follow pneumonia workup (2) Elevated troponin: Code(s): R79.89 - Other specified abnormal findings of blood chemistry Status: Chronic Assessment and Plan: Patient presents with 3 day history of dyspnea accompanied by intermittent nonradiating substernal chest pain described as sharp and lasting only a couple seconds. No acute ischemia on serial EKGs. - EKG, initial: Initial EKG sinus tachycardia with incomplete left bundle-branch block. No significant change from prior. Initial troponin elevated at 0.059. Patient has a history of elevated troponin without cardiac ischemia. Likely elevated due to demand ischemia. - EKG, repeat (1): AFib with incomplete left bundle-branch block - EKG, repeat (2): Sinus tach with rate of 101 - Chest x-ray with probable small right pleural effusion, emphysema with hyperinflation. - Troponin: 0.059-0.049-0.047 - 324 mg ASA in ED - cardiology consulted: recommends outpatient follow up, no ischemic workup at this time as suspicion is low - continue atorvastatin - previous echo on 01/26/2023 shows an EF of 43% (3) COPD (chronic obstructive pulmonary disease): Code(s): J44.9 - Chronic obstructive pulmonary disease, unspecified Status: Acute Assessment and Plan: Emphysema with hyperinflation noted on chest x-ray. Patient found to be wheezy in ED. Patient may having exacerbation due to pneumonia. Increased sputum production despite antibiotics suggests COPD, especially as she is not showing signs of sepsis, worsening WBC count, etc. - DuoNebs Q6H p.r.n. - substitute breztri for trilogy while inpatient - standing methylprednisolone order as this appears to be improving patient's symptoms. - home medications: Breztri and albuterol p.r.n. - 125 mg methylprednisolone, hour long DuoNeb, and 2 g magnesium sulfate in ED - currently not requiring supplemental O2 (4) Atrial fibrillation: Qualifiers: Atrial fibrillation type: paroxysmal Qualified Code(s): I48.0 - Paroxysmal atrial fibrillation Code(s): I48.91 - Unspecified atrial fibrillation Status: Chronic Assessment and Plan: Chronic AFib with heart rate frequently greater than 100 documented over several years. Asymptomatic -continue apixaban (5) Ischemic cardiomyopathy: Code(s): I25.5 - Ischemic cardiomyopathy Status: Chronic Assessment and Plan: History of CAD status post stent in 2018. Patient presents today with intermittent substernal sharp chest pain with elevated troponin. Pain does not appear to be cardiac related. Cardiology agrees, does not recommend ischemic workup at this time. 02/02: BP soft today after dose of entresto. AM dose held, PM reduced to 1/2, however may need to be held. Given hypotension, will get lactic acid with AM labs to rule out sepsis. Suspicion is low for now as patient is clinically improving. - previous echo on 01/26/2023 shows an EF of 43% -continue Entresto, Lasix, spironolactone. Hold BP meds if not tolerated. -outpatient cardiology on DC Plan Assess for improvement of sputum, discharge with po abx if improving well. DVT prophylaxis: apixaban Diet: Heart healthy Medical Record Review I have reviewed the following patient records and this information was taken into consideration when formulating the assessment and plan.: previous labs Consultations Consultations: I have discussed the care of this pt with the consulting providers. Subjective Date/time seen: 02/04/25 16:55 Interval history: 74-year-old female with past medical history of COPD, ischemic cardiomyopathy, hyperlipidemia, hypertension, empyema presents to the ED on 02/01/2025 with complaints of chest pain and shortness of breath. Patient reportedly had the flu 2 weeks ago. She is chronically short of breath but her dyspnea has increased over the past few days. She has also been having intermittent episodes of sharp substernal chest pains over the past few days. The chest pain lasts for a couple of seconds resolving. She states the pain can happen with inspiration but also happens randomly. Denies productive cough, fever. Patient was hospitalized in July 2024 with empyema after an attempted CT guided left upper lobe nodule in June. Patient does have history of [place] in 2018 with 1 stent placed. Initial vital signs 146/85, HR 103, respirations 22, afebrile and 100% on room air. Hematology with no leukocytosis, baseline iron deficiency anemia. Sodium 131, chloride 95, BUN 18, creatinine 0.48. AST 169, ALT 249. Initial troponin 0.049. BNP 87616. Initial EKG sinus tachycardia with incomplete left bundle-branch block. No significant change from prior. Chest x-ray with probable small right pleural effusion, emphysema with hyperinflation. Chest CT right lower lobe bronchial pneumonia superimposed on chronic lung disease. Redemonstration of left lung nodule. 02/02/2025: Feeling much improved, starting to have productive cough with yellow sputum. Seen by cardiology for chest pain, no acute ischemic workup at this time recommended. 02/03: BP had been low the day prior, entresto had to be stopped. Required albumin infusion overnight to bring back BP, which stabilized through the morning. Entresto/BP meds now on hold. Patient has been having productive cough, could be PNA but given it is being treated, may be element of COPD. Jelani Quezada daily ordered already, will give dose of methylprednisolone to counter element of COPD, and assess accordingly. Review of Systems Review of Systems: All systems reviewed & are unremarkable except as noted in HPI and below Exam Narrative: GENERAL: non-toxic appearing, in no acute distress. HEAD: Normocephalic, atraumatic. EYES: PERRLA. Conjunctivae clear. NOSE: Normal no drainage. THROAT: Pharynx clear, no exudate. NECK: Trachea midline. No adenopathy, no masses. RESPIRATORY: Airway patent, respirations nonlabored. Decreased breath sounds throughout CARDIOVASCULAR: Irregular rate and rhythm BREASTS: Defer GASTROINTESTINAL: Abdomen is soft and nontender. No organomegaly. Bowel sounds normal in all quadrants. GENITOURINARY: Defer MUSCULOSKELETAL: Moves all extremities. No gross deformities. No edema. SKIN: Warm, dry, normal color. NEURO: A&O X4. Speech clear PSYCHIATRIC: Normal interaction Objective Data Vital Signs Vital Signs: Vital Signs - 24 hr 02/03/25 18:00 02/03/25 20:00 02/03/25 20:00 Temperature 97.4 F L Pulse Rate 95 95 88 Respiratory Rate 23 H 20 Blood Pressure 99/60 L Pulse Oximetry 97 97 Oxygen Delivery Room Air Fraction of Inspired Oxygen 21 02/03/25 20:00 02/03/25 20:31 02/03/25 20:39 Temperature Pulse Rate 88 88 92 Respiratory Rate 20 20 Blood Pressure Pulse Oximetry Oxygen Delivery Fraction of Inspired Oxygen 02/03/25 21:58 02/04/25 00:00 02/04/25 00:00 Temperature Pulse Rate 86 86 86 Respiratory Rate 20 Blood Pressure Pulse Oximetry 97 Oxygen Delivery Room Air Fraction of Inspired Oxygen 21 02/04/25 00:00 02/04/25 02:00 02/04/25 02:09 Temperature 97.3 F L Pulse Rate 82 92 96 Respiratory Rate 17 20 Blood Pressure 96/61 L Pulse Oximetry 99 Oxygen Delivery Fraction of Inspired Oxygen 02/04/25 02:17 02/04/25 03:41 02/04/25 03:41 Temperature Pulse Rate 90 89 89 Respiratory Rate 20 20 Blood Pressure Pulse Oximetry 99 Oxygen Delivery Room Air Fraction of Inspired Oxygen 21 02/04/25 04:00 02/04/25 06:00 02/04/25 08:00 Temperature 97.6 F 97.6 F Pulse Rate 91 94 145 H Respiratory Rate 19 20 Blood Pressure 96/58 L 100/58 L Pulse Oximetry 98 97 Oxygen Delivery Fraction of Inspired Oxygen 02/04/25 08:00 02/04/25 08:00 02/04/25 08:22 Temperature Pulse Rate 97 90 Respiratory Rate 20 Blood Pressure Pulse Oximetry Oxygen Delivery Room Air Fraction of Inspired Oxygen 02/04/25 08:30 02/04/25 09:01 02/04/25 10:00 Temperature Pulse Rate 89 65 Respiratory Rate 20 Blood Pressure Pulse Oximetry Oxygen Delivery Room Air Fraction of Inspired Oxygen 02/04/25 12:00 02/04/25 12:00 02/04/25 12:00 Temperature Pulse Rate 104 H 104 H 100 Respiratory Rate 20 20 Blood Pressure 101/59 L Pulse Oximetry 100 100 Oxygen Delivery Room Air Fraction of Inspired Oxygen 02/04/25 14:00 02/04/25 14:00 02/04/25 14:07 Temperature Pulse Rate 85 105 H 87 Respiratory Rate 20 20 Blood Pressure Pulse Oximetry Oxygen Delivery Fraction of Inspired Oxygen 02/04/25 16:04 Temperature 98.0 F Pulse Rate 97 Respiratory Rate 20 Blood Pressure 118/68 Pulse Oximetry 100 Oxygen Delivery Fraction of Inspired Oxygen Intake/Output Intake/Output: Intake & Output 02/01/25 02/02/25 02/03/25 02/04/25 23:59 23:59 23:59 23:59 Intake Total 500 2262 2085 1930 Output Total 550 748 242 1647 Balance -50 1311 1235 730 Meds/Results Medications: Active Medications Generic Name Dose Route Start Last Admin Trade Name Freq PRN Reason Stop Dose Admin Acetaminophen 650 mg 02/01/25 13:03 02/03/25 16:58 Acetaminophen 325 Mg Tablet PO 650 mg Q6H PRN Administration Mild Pain (1-3) or Fever Albuterol/Ipratropium 3 ml 02/03/25 14:00 02/04/25 14:00 Ipratropium 0.5 Mg/Albuterol Sulfate 2.5 Mg (Base) Ampul.Neb 3 Ml INHALATION 3 ml Q6HRT ALESSIO Administration Amoxicillin/Clavulanate Potassium 1 tablet 02/05/25 09:00 Amoxicillin/Clavulanate K 875-125 Mg Tab PO 02/05/25 21:01 Q12HR ALESSIO Apixaban 5 mg 02/01/25 17:00 02/04/25 16:12 Apixaban 5 Mg Tablet PO 5 mg BID ALESSIO Administration Aspirin 81 mg 02/02/25 09:00 02/04/25 10:08 Aspirin 81 Mg Enteric Tablet PO 81 mg DAILY ALESSIO Administration Atorvastatin Calcium 40 mg 02/02/25 09:00 02/04/25 10:08 Atorvastatin 40 Mg Tablet PO 40 mg DAILY ALESSIO Administration Cyanocobalamin 1,000 mcg 02/02/25 09:00 02/04/25 10:08 Cyanocobalamin 1,000 Mcg Tablet PO 1,000 mcg DAILY ALESSIO Administration Doxycycline Hyclate 100 mg 02/04/25 13:30 02/04/25 13:46 Doxycycline Hyclate 100 Mg Tablet PO 02/05/25 21:01 100 mg Q12HR ALESSIO Administration Ezetimibe 10 mg 02/02/25 09:00 02/04/25 10:09 Ezetimibe 10 Mg Tablet PO 10 mg DAILY ALESSIO Administration Ferrous Sulfate 325 mg 02/01/25 17:00 02/04/25 16:12 Ferrous Sulfate 325 Mg Tablet PO 325 mg BIDWM ALESSIO Administration Fluticasone/Umeclidinium/Vilanterol 1 puff 02/01/25 14:00 02/04/25 08:23 Fluticasone/Umeclidin/Vilanter 100-62.5-25 Mcg Ellipta INHALATION 1 puff DAILYRT ALESSIO Administration Furosemide 20 mg 02/03/25 09:00 02/04/25 10:09 Furosemide 20 Mg Tablet PO 20 mg DAILY ALESSIO Administration Methylprednisolone Sodium Succinate 60 mg 02/04/25 14:00 02/04/25 13:46 Methylprednisolone Sod Succ 125 Mg Vial IV PUSH 60 mg Q8HR ALESSIO Administration Pantoprazole Sodium 40 mg 02/02/25 09:00 02/04/25 10:09 Pantoprazole 40 Mg Tablet PO 40 mg QAM ALESSIO Administration Polyethylene Glycol 17 gm 02/01/25 13:47 02/01/25 15:14 Polyethylene Glycol 3350 17 Gm Powd.Pack PO 17 gm QAM PRN Administration Constipation Pregabalin 100 mg 02/01/25 17:00 02/04/25 16:12 Pregabalin (*Crx) 50 Mg Capsule PO 100 mg BID ALESSIO Administration Sacubitril/Valsartan 1 tab 02/02/25 21:00 02/03/25 20:01 Sacubitril/Valsartan 12-13 Mg Tablet PO Not Given On Hold: 02/04/25 08:11 Q12HR ALESSIO Sodium Chloride 10 ml 02/04/25 22:00 Saline Lock Flush IV PUSH Q8HR ALESSIO Sodium Chloride 10 ml 02/04/25 14:43 Saline Lock Flush IV PUSH PRN PRN Flush Sodium Chloride 20 ml 02/04/25 14:43 Saline Lock Flush IV PUSH PRN PRN after blood draws Spironolactone 12.5 mg 02/02/25 09:00 02/04/25 10:09 Spironolactone 12.5 Mg Tablet PO 12.5 mg DAILY ALESSIO Administration Thiamine HCl 100 mg 02/02/25 09:00 02/04/25 10:09 Thiamine Hcl 100 Mg Tablet PO 100 mg DAILY ALESSIO Administration Radiology Results: ITS Impressions Chest CT 02/01/25 10:19 IMPRESSION: 1. Right lower lobe bronchopneumonia superimposed on chronic lung disease. 2. Left lung nodule concerning for neoplasm. PET CT is recommended Chest X-Ray 02/04/25 08:13 Impression: 1. Probable bilateral pneumonia. Lung nodule detailed above Labs Labs: Laboratory Results - last 24 hr 02/01/25 02/04/25 02/04/25 08:40 03:38 13:00 WBC 3.6 L RBC 3.06 L Hgb 10.4 L Hct 32.2 L MCV 105.2 H MCH 34.0 MCHC 32.3 RDW 15.0 H Plt Count 347 MPV 9.5 Immature Gran % (Auto) 0.8 H Neut % (Auto) 91.7 H Lymph % (Auto) 5.3 L [place] % (Auto) 2.2 L Eos % (Auto) 0.0 Baso % (Auto) 0.0 L Lymph # (Auto) 0.19 L [place] # (Auto) 0.1 Eos # (Auto) 0.0 Baso # (Auto) 0.0 Abs Immat Gran (auto) 0.03 Absolute Neuts (auto) 3.3 Absolute Nucleated RBC 0.000 Nucleated RBC % 0.0 Puncture Site Left radial ABG pH 7.450 ABG pCO2 31.4 L ABG HCO3 21.3 L ABG Base Excess -1.8 Oxyhemoglobin 93.9 Total Hemoglobin 12.3 O2 Delivery Device Room air FiO2 21 Sodium 131 L Potassium 3.8 Chloride 100 Carbon Dioxide 29 Anion Gap 2 L BUN 16 Creatinine 0.72 Estim Creat Clear Calc 51 Estimated GFR > 60 Glucose 190 H Calcium 7.9 L Total Bilirubin 0.3 AST 73 H ALT 170 H Alkaline Phosphatase 67 Total Protein 5.3 L Albumin 3.0 L Procalcitonin 0.1 Vancomycin Trough 19.1 Hospitalist MIPS Advance Care Plan I have confirmed that the patient's Advanced Care Plan is present, code status is documented, or surrogate decision maker is listed in patient medical record.: Yes Medication Reconciliation I have utilized all available resources to obtain, update and review the patients current medications (includes all prescriptions, OTC, herbals, cannabis, and nutritional supplements).: Yes
[2025-02-04] MEDS: SALINE LOCK FLUSH 10 ML IV PUSH (21:05)
[2025-02-05] VITALS (12 sets, daily range): BP systolic 114–119; BP diastolic 65–75; PULSE 72–115; RESP 16–20; TEMP 36.4–36.6; O2SAT 95–100
[2025-02-05] MEDS: IPRATROPIUM 0.5 MG/ALBUTEROL SULFATE 2.5 MG (BASE) AMPUL.NEB 3 ML INHALATION ×4 (02:49→20:54)
[2025-02-05 04:03] LABS: Hematocrit 30.4 % (37.0-47.0); Hemoglobin 9.8 g/dL (12.0-15.0); Mean Corpuscular HGB Conc 32.2 g/dl (32-36); Mean Corpuscular Hemoglobin 33.4 pg (26-34); Mean Corpuscular Volume 103.8 fl (80-100); Platelet Count Result 340 k/mm3 (150-375); Red Blood Count 2.93 M/mm3 (4.2-5.4); White Blood Count 5.6 K/mm3 (4.5-10.0)
[2025-02-05 04:29] LABS: Alanine Aminotransferase 142 U/L (6-35); Albumin Level 3.0 g/dL (3.5-5.1); Alkaline Phosphatase 58 U/L (38-126); Anion Gap 0 mmol/L (4-12); Aspartate Amino Transferase 56 U/L (14-36); Bilirubin,Total 0.3 mg/dL (0.2-1.3); Blood Urea Nitrogen 19 mg/dL (7-17); Calcium 8.0 mg/dL (8.4-10.2); Carbon Dioxide 33 mmol/L (22-30); Chloride 100 mmol/L (98-107); Estimated CRCL calculation 69 ml/min; Estimated Glomerular Filt Rate > 60; Glucose 125 mg/dL (65-110); Potassium 3.8 mmol/L (3.4-5.0); Sodium 133 mmol/L (137-145); Total Protein 5.4 g/dL (6.3-8.2)
[2025-02-05] MEDS: SALINE LOCK FLUSH 10 ML IV PUSH ×3 (05:54→21:04)
[2025-02-05] MEDS: FLUTICASONE/UMECLIDIN/VILANTER 100-62.5-25 MCG ELLIPTA 1 PUFF INHALATION (08:00)
[2025-02-05] MEDS: ATORVASTATIN 40 MG TABLET PO (08:20)
[2025-02-05] MEDS: DOXYCYCLINE HYCLATE 100 MG TABLET PO ×2 (08:20→21:03)
[2025-02-05] MEDS: ASPIRIN 81 MG ENTERIC TABLET PO (08:20)
[2025-02-05] MEDS: PREGABALIN (*CRX) 50 MG CAPSULE 100 MG PO ×2 (08:21→16:34)
[2025-02-05] MEDS: EZETIMIBE 10 MG TABLET PO (08:21)
[2025-02-05] MEDS: FERROUS SULFATE 325 MG TABLET PO ×2 (08:21→16:34)
[2025-02-05] MEDS: APIXABAN 5 MG TABLET PO ×2 (08:21→16:34)
[2025-02-05] MEDS: PANTOPRAZOLE 40 MG TABLET PO (08:21)
[2025-02-05] MEDS: THIAMINE HCL 100 MG TABLET PO (08:21)
[2025-02-05] MEDS: CYANOCOBALAMIN 1,000 MCG TABLET 1000 MCG PO (08:21)
[2025-02-05] MEDS: FUROSEMIDE 20 MG TABLET PO (08:21)
--- NOTE | 2025-02-05 08:29 | PC.NURSE ---
This patient, Oralia Garsia, was transferred to [[id number] ] on 02/05/25 at 0829. Personal belongings sent with patient. Report given to [ ALTHEA Mueller @ [phone]]. Appropriate documentation sent with patient. Morning medications administered prior to pt being moved
--- NOTE | 2025-02-05 08:51 | PC.NURSE ---
This patient, Oralia Gasria, was received from [facility] on 02/05/25 at 0851. Patient/family oriented to unit policies and routines
--- NOTE | 2025-02-05 13:05 | PCOTNOTE ---
Attempted to see Patient at this time. Patient in bed, states she does not need therapy services. She will be going home at discharge and does fine. Patient goes on to state, she has been very sick, not going to do any activities to get SOB and not heal. Patient asked to not have therapy. Therapist explained the importance of movement and activity for the same reasons she states having difficulty with. Patient refuses to participate.
--- NOTE | 2025-02-05 16:07 | PM.IMPN2 ---
Assessment and Plan Assessment and Plan (1) Pneumonia: Qualifiers: Laterality: right Lung location: lower lobe of lung Pneumonia type: due to unspecified organism Qualified Code(s): J18.9 - Pneumonia, unspecified organism Code(s): J18.9 - Pneumonia, unspecified organism Status: Acute Assessment and Plan: Presents with a few day history of increasing dyspnea accompanied by a substernal chest pain. Had the flu roughly 2 weeks ago. Chest x-ray with probable small right pleural effusion, emphysema with hyperinflation. Chest CT right lower lobe bronchial pneumonia superimposed on chronic lung disease. Redemonstration of left lung nodule. Patient with history of COPD and empyema in July 2024. Improving. Persistent cough productive of sputum, however this may be more COPD than pneumonia. Nonetheless, did add additional pneumonia workup. - started on Rocephin, doxycycline vancomycin on 02/01 - downgrading to augmentin/doxycycline oral - MRSA PCR negative - currently not requiring supplemental O2 - follow pneumonia workup (2) Elevated troponin: Code(s): R79.89 - Other specified abnormal findings of blood chemistry Status: Chronic Assessment and Plan: Patient presents with 3 day history of dyspnea accompanied by intermittent nonradiating substernal chest pain described as sharp and lasting only a couple seconds. No acute ischemia on serial EKGs. - EKG, initial: Initial EKG sinus tachycardia with incomplete left bundle-branch block. No significant change from prior. Initial troponin elevated at 0.059. Patient has a history of elevated troponin without cardiac ischemia. Likely elevated due to demand ischemia. - EKG, repeat (1): AFib with incomplete left bundle-branch block - EKG, repeat (2): Sinus tach with rate of 101 - Chest x-ray with probable small right pleural effusion, emphysema with hyperinflation. - Troponin: 0.059-0.049-0.047 - 324 mg ASA in ED - cardiology consulted: recommends outpatient follow up, no ischemic workup at this time as suspicion is low - continue atorvastatin - previous echo on 01/26/2023 shows an EF of 43% (3) COPD (chronic obstructive pulmonary disease): Code(s): J44.9 - Chronic obstructive pulmonary disease, unspecified Status: Acute Assessment and Plan: Emphysema with hyperinflation noted on chest x-ray. Patient found to be wheezy in ED. Patient may having exacerbation due to pneumonia. Increased sputum production despite antibiotics suggests COPD, especially as she is not showing signs of sepsis, worsening WBC count, etc. - DuoNebs Q6H p.r.n. - substitute breztri for trilogy while inpatient - home medications: Breztri and albuterol p.r.n. - 125 mg methylprednisolone, hour long DuoNeb, and 2 g magnesium sulfate in ED - currently not requiring supplemental O2 - standing methylprednisolone order as this appears to be improving patient's symptoms. will administer one dose today and taper down to 40mg tomorrow, DC on prednisone oral to complete 5 days. Pulmonary follow up will be beneficial for her on discharge. (4) Atrial fibrillation: Qualifiers: Atrial fibrillation type: paroxysmal Qualified Code(s): I48.0 - Paroxysmal atrial fibrillation Code(s): I48.91 - Unspecified atrial fibrillation Status: Chronic Assessment and Plan: Chronic AFib with heart rate frequently greater than 100 documented over several years. Asymptomatic -continue apixaban (5) Ischemic cardiomyopathy: Code(s): I25.5 - Ischemic cardiomyopathy Status: Chronic Assessment and Plan: History of CAD status post stent in 2018. Patient presents today with intermittent substernal sharp chest pain with elevated troponin. Pain does not appear to be cardiac related. Cardiology agrees, does not recommend ischemic workup at this time. 02/02: BP soft today after dose of entresto. AM dose held, PM reduced to 1/2, however may need to be held. Given hypotension, will get lactic acid with AM labs to rule out sepsis. Suspicion is low for now as patient is clinically improving. Lactic acid was 2.2 > 2.3, however patient has been receiving albuterol, which is known to elevate lactate, and level is only slightly elevated. - previous echo on 01/26/2023 shows an EF of 43% -continue Entresto, Lasix, spironolactone. Hold BP meds if not tolerated. -outpatient cardiology on DC Plan Assess for improvement of sputum, discharge with po abx if improving well. DVT prophylaxis: apixaban Diet: Heart healthy Medical Record Review I have reviewed the following patient records and this information was taken into consideration when formulating the assessment and plan.: previous labs Consultations Consultations: I have discussed the care of this pt with the consulting providers. Subjective Date/time seen: 02/05/25 16:07 Interval history: 74-year-old female with past medical history of COPD, ischemic cardiomyopathy, hyperlipidemia, hypertension, empyema presents to the ED on 02/01/2025 with complaints of chest pain and shortness of breath. Patient reportedly had the flu 2 weeks ago. She is chronically short of breath but her dyspnea has increased over the past few days. She has also been having intermittent episodes of sharp substernal chest pains over the past few days. The chest pain lasts for a couple of seconds resolving. She states the pain can happen with inspiration but also happens randomly. Denies productive cough, fever. Patient was hospitalized in July 2024 with empyema after an attempted CT guided left upper lobe nodule in June. Patient does have history of PR in 2018 with 1 stent placed. Initial vital signs 146/85, HR 103, respirations 22, afebrile and 100% on room air. Hematology with no leukocytosis, baseline iron deficiency anemia. Sodium 131, chloride 95, BUN 18, creatinine 0.48. AST 169, ALT 249. Initial troponin 0.049. BNP 03762. Initial EKG sinus tachycardia with incomplete left bundle-branch block. No significant change from prior. Chest x-ray with probable small right pleural effusion, emphysema with hyperinflation. Chest CT right lower lobe bronchial pneumonia superimposed on chronic lung disease. Redemonstration of left lung nodule. 02/02/2025: Feeling much improved, starting to have productive cough with yellow sputum. Seen by cardiology for chest pain, no acute ischemic workup at this time recommended. 02/03: BP had been low the day prior, entresto had to be stopped. Required albumin infusion overnight to bring back BP, which stabilized through the morning. Entresto/BP meds now on hold. Patient has been having productive cough, could be PNA but given it is being treated, may be element of COPD. Jelani Quezada daily ordered already, will give dose of methylprednisolone to counter element of COPD, and assess accordingly. 02/04: Started standing dose IV steroid, productive cough persists, however no signficant SOB, patient does report steady improvement. 2: Will give another IV steroid dose today, discharge with 5 days oral steroids tomorrow and oral abx to complete course if needed, as well as pulmonary appointment, cardiology, pcp. Hypotension has been a problem and has resulted in holding BP meds, BP is now starting to stabilize. Likely to resume at least 1 of antihypertensives on discharge with close pcp follow up. Review of Systems Review of Systems: All systems reviewed & are unremarkable except as noted in HPI and below Exam Narrative: GENERAL: non-toxic appearing, in no acute distress. HEAD: Normocephalic, atraumatic. EYES: PERRLA. Conjunctivae clear. NOSE: Normal no drainage. THROAT: Pharynx clear, no exudate. NECK: Trachea midline. No adenopathy, no masses. RESPIRATORY: Airway patent, respirations nonlabored. Decreased breath sounds throughout. No significant wheezing or crackles. CARDIOVASCULAR: Irregular rate and rhythm BREASTS: Defer GASTROINTESTINAL: Abdomen is soft and nontender. No organomegaly. Bowel sounds normal in all quadrants. GENITOURINARY: Defer MUSCULOSKELETAL: Moves all extremities. No gross deformities. No edema. SKIN: Warm, dry, normal color. NEURO: A&O X4. Speech clear PSYCHIATRIC: Normal interaction Objective Data Vital Signs Vital Signs: Vital Signs - 24 hr 02/04/25 21:08 02/04/25 21:12 02/04/25 21:19 Temperature Pulse Rate 83 83 85 Respiratory Rate 20 20 Blood Pressure Pulse Oximetry 98 Oxygen Delivery Room Air Fraction of Inspired Oxygen 21 02/05/25 00:00 02/05/25 02:50 02/05/25 02:57 Temperature 97.6 F Pulse Rate 98 87 84 Respiratory Rate 18 20 20 Blood Pressure 114/75 Pulse Oximetry 97 Oxygen Delivery Fraction of Inspired Oxygen 02/05/25 08:00 02/05/25 08:00 02/05/25 08:00 Temperature Pulse Rate 95 95 Respiratory Rate 16 16 Blood Pressure Pulse Oximetry 95 97 Oxygen Delivery Room Air Room Air Fraction of Inspired Oxygen 02/05/25 08:10 02/05/25 08:22 02/05/25 13:55 Temperature 97.6 F Pulse Rate 95 96 102 H Respiratory Rate 16 18 16 Blood Pressure 119/65 Pulse Oximetry 97 Oxygen Delivery Fraction of Inspired Oxygen 02/05/25 14:06 02/05/25 16:00 Temperature 97.6 F Pulse Rate 94 95 Respiratory Rate 16 16 Blood Pressure 114/67 Pulse Oximetry 97 Oxygen Delivery Fraction of Inspired Oxygen Intake/Output Intake/Output: Intake & Output 11/29/25 11/30/25 12/01/25 12/02/25 23:59 23:59 23:59 23:59 Intake Total 2262 2085 2530 990 Output Total 723 916 4132 1150 Balance 1311 1235 980 -160 Meds/Results Medications: Active Medications Generic Name Dose Route Start Last Admin Trade Name Freq PRN Reason Stop Dose Admin Acetaminophen 650 mg 02/01/25 13:03 02/03/25 16:58 Acetaminophen 325 Mg Tablet PO 650 mg Q6H PRN Administration Mild Pain (1-3) or Fever Albuterol/Ipratropium 3 ml 02/03/25 14:00 02/05/25 13:55 Ipratropium 0.5 Mg/Albuterol Sulfate 2.5 Mg (Base) Ampul.Neb 3 Ml INHALATION 3 ml Q6HRT ALESSIO Administration Amoxicillin/Clavulanate Potassium 1 tablet 02/05/25 09:00 02/05/25 08:21 Amoxicillin/Clavulanate K 875-125 Mg Tab PO 02/05/25 21:01 1 tablet Q12HR ALESSIO Administration Apixaban 5 mg 02/01/25 17:00 02/05/25 08:21 Apixaban 5 Mg Tablet PO 5 mg BID ALESSIO Administration Aspirin 81 mg 02/02/25 09:00 02/05/25 08:20 Aspirin 81 Mg Enteric Tablet PO 81 mg DAILY ALESSIO Administration Atorvastatin Calcium 40 mg 02/02/25 09:00 02/05/25 08:20 Atorvastatin 40 Mg Tablet PO 40 mg DAILY ALESSIO Administration Cyanocobalamin 1,000 mcg 02/02/25 09:00 02/05/25 08:21 Cyanocobalamin 1,000 Mcg Tablet PO 1,000 mcg DAILY ALESSIO Administration Doxycycline Hyclate 100 mg 02/04/25 13:30 02/05/25 08:20 Doxycycline Hyclate 100 Mg Tablet PO 02/05/25 21:01 100 mg Q12HR ALESSIO Administration Ezetimibe 10 mg 02/02/25 09:00 02/05/25 08:21 Ezetimibe 10 Mg Tablet PO 10 mg DAILY ALESSIO Administration Ferrous Sulfate 325 mg 02/01/25 17:00 02/05/25 08:21 Ferrous Sulfate 325 Mg Tablet PO 325 mg BIDWM ALESSIO Administration Fluticasone/Umeclidinium/Vilanterol 1 puff 02/01/25 14:00 02/05/25 08:00 Fluticasone/Umeclidin/Vilanter 100-62.5-25 Mcg Ellipta INHALATION 1 puff DAILYRT ALESSIO Administration Furosemide 20 mg 02/03/25 09:00 02/05/25 08:21 Furosemide 20 Mg Tablet PO 20 mg DAILY ALESSIO Administration Methylprednisolone Sodium Succinate 40 mg 02/06/25 09:00 Methylprednisolone Sod Succ 40 Mg Vial IV PUSH DAILY ALESSIO Pantoprazole Sodium 40 mg 02/02/25 09:00 02/05/25 08:21 Pantoprazole 40 Mg Tablet PO 40 mg QAM ALESSIO Administration Polyethylene Glycol 17 gm 02/01/25 13:47 02/01/25 15:14 Polyethylene Glycol 3350 17 Gm Powd.Pack PO 17 gm QAM PRN Administration Constipation Pregabalin 100 mg 02/01/25 17:00 02/05/25 08:21 Pregabalin (*Crx) 50 Mg Capsule PO 100 mg BID ALESSIO Administration Sacubitril/Valsartan 1 tab 02/02/25 21:00 02/03/25 20:01 Sacubitril/Valsartan 12-13 Mg Tablet PO Not Given On Hold: 02/04/25 08:11 Q12HR ALESSIO Sodium Chloride 10 ml 02/04/25 22:00 02/05/25 05:54 Saline Lock Flush IV PUSH 10 ml Q8HR ALESSIO Administration Sodium Chloride 10 ml 02/04/25 14:43 Saline Lock Flush IV PUSH PRN PRN Flush Sodium Chloride 20 ml 02/04/25 14:43 Saline Lock Flush IV PUSH PRN PRN after blood draws Spironolactone 12.5 mg 02/02/25 09:00 02/05/25 08:21 Spironolactone 12.5 Mg Tablet PO 12.5 mg DAILY ALESSIO Administration Thiamine HCl 100 mg 02/02/25 09:00 02/05/25 08:21 Thiamine Hcl 100 Mg Tablet PO 100 mg DAILY ALESSIO Administration Radiology Results: ITS Impressions Chest CT 02/01/25 10:19 IMPRESSION: 1. Right lower lobe bronchopneumonia superimposed on chronic lung disease. 2. Left lung nodule concerning for neoplasm. PET CT is recommended Chest X-Ray 02/04/25 08:13 Impression: 1. Probable bilateral pneumonia. Lung nodule detailed above Labs Labs: Laboratory Results - last 24 hr 02/04/25 02/05/25 03:38 03:37 WBC 5.6 RBC 2.93 L Hgb 9.8 L Hct 30.4 L MCV 103.8 H MCH 33.4 MCHC 32.2 RDW 15.1 H Plt Count 340 MPV 9.5 Sodium 133 L Potassium 3.8 Chloride 100 Carbon Dioxide 33 H Anion Gap 0 L BUN 19 H Creatinine 0.53 L Estim Creat Clear Calc 69 Estimated GFR > 60 Glucose 125 H Calcium 8.0 L Total Bilirubin 0.3 AST 56 H ALT 142 H Alkaline Phosphatase 58 Total Protein 5.4 L Albumin 3.0 L M.pneumoniae IgM Titer <770 Hospitalist MIPS Advance Care Plan I have confirmed that the patient's Advanced Care Plan is present, code status is documented, or surrogate decision maker is listed in patient medical record.: Yes Medication Reconciliation I have utilized all available resources to obtain, update and review the patients current medications (includes all prescriptions, OTC, herbals, cannabis, and nutritional supplements).: Yes
[2025-02-06 02:35] VITALS: PULSE 86; RESP 18
[2025-02-06] MEDS: IPRATROPIUM 0.5 MG/ALBUTEROL SULFATE 2.5 MG (BASE) AMPUL.NEB 3 ML INHALATION ×2 (02:35→09:04)
[2025-02-06 02:40] VITALS: PULSE 87; RESP 16
[2025-02-06 05:27] VITALS: BP 110/65; PULSE 89; RESP 18; TEMP 36.5; O2SAT 98
[2025-02-06 06:20] LABS: Hematocrit 30.6 % (37.0-47.0); Hemoglobin 9.9 g/dL (12.0-15.0); Mean Corpuscular HGB Conc 32.4 g/dl (32-36); Mean Corpuscular Hemoglobin 33.8 pg (26-34); Mean Corpuscular Volume 104.4 fl (80-100); Platelet Count Result 340 k/mm3 (150-375); Red Blood Count 2.93 M/mm3 (4.2-5.4); White Blood Count 7.8 K/mm3 (4.5-10.0)
[2025-02-06] MEDS: ACETAMINOPHEN 325 MG TABLET 650 MG PO (06:26)
[2025-02-06 06:48] LABS: Alanine Aminotransferase 157 U/L (6-35); Albumin Level 2.8 g/dL (3.5-5.1); Alkaline Phosphatase 53 U/L (38-126); Anion Gap -1 mmol/L (4-12); Aspartate Amino Transferase 99 U/L (14-36); Bilirubin,Total 0.3 mg/dL (0.2-1.3); Blood Urea Nitrogen 18 mg/dL (7-17); Calcium 7.9 mg/dL (8.4-10.2); Carbon Dioxide 35 mmol/L (22-30); Chloride 100 mmol/L (98-107); Estimated CRCL calculation 70 ml/min; Estimated Glomerular Filt Rate > 60; Glucose 89 mg/dL (65-110); Potassium 3.5 mmol/L (3.4-5.0); Sodium 134 mmol/L (137-145); Total Protein 5.2 g/dL (6.3-8.2)
[2025-02-06] MEDS: PREGABALIN (*CRX) 50 MG CAPSULE 100 MG PO (08:22)
[2025-02-06] MEDS: FERROUS SULFATE 325 MG TABLET PO (08:22)
[2025-02-06] MEDS: PANTOPRAZOLE 40 MG TABLET PO (08:22)
[2025-02-06] MEDS: APIXABAN 5 MG TABLET PO (08:22)
[2025-02-06] MEDS: FUROSEMIDE 20 MG TABLET PO (08:22)
[2025-02-06] MEDS: ATORVASTATIN 40 MG TABLET PO (08:22)
[2025-02-06] MEDS: CYANOCOBALAMIN 1,000 MCG TABLET 1000 MCG PO (08:22)
[2025-02-06] MEDS: THIAMINE HCL 100 MG TABLET PO (08:22)
[2025-02-06] MEDS: EZETIMIBE 10 MG TABLET PO (08:23)
[2025-02-06] MEDS: ASPIRIN 81 MG ENTERIC TABLET PO (08:23)
[2025-02-06] MEDS: FLUTICASONE/UMECLIDIN/VILANTER 100-62.5-25 MCG ELLIPTA 1 PUFF INHALATION (09:04)
[2025-02-06 09:07] VITALS: PULSE 92; RESP 18; O2SAT 97
--- NOTE | 2025-02-06 11:02 | PCOTNOTE ---
Attempted again at this time to see Patient for OT treatment session. Patient states she refused therapy yesterday and still is refusing, states she does not need therapy and she is able to perform what she needs to do by herself. Patient states she is going home today. Therapist asked if she could perform activities for the therapist so she could document her progress and abilities, refused,
--- NOTE | 2025-02-06 11:46 | P.DS_ITS ---
DS: Admitting Diagnosis Discharge Date 02/06/25 Admitting Diagnosis Pneumonia DS: Discharge Diagnosis Discharge Diagnosis (1) Pneumonia: Qualifiers: Laterality: right Lung location: lower lobe of lung Pneumonia type: due to unspecified organism Qualified Code(s): J18.9 - Pneumonia, unspecified organism Code(s): J18.9 - Pneumonia, unspecified organism Status: Acute Assessment and Plan: Presents with a few day history of increasing dyspnea accompanied by a substernal chest pain. Had the flu roughly 2 weeks ago. Chest x-ray with probable small right pleural effusion, emphysema with hyperinflation. Chest CT right lower lobe bronchial pneumonia superimposed on chronic lung disease. Remonstration of left lung nodule. Patient with history of COPD and empyema in July 2024. Improving. Persistent cough productive of sputum, however this may be more COPD than pneumonia. Nonetheless, did add additional pneumonia workup. Repeat CXR shows persistent atelectasis and/or pneumonia in the right lower lung zone with new small right pleural effusion, and emphysema. On visualization, does appear much improved from prior CXR. - started on Rocephin, doxycycline vancomycin on 02/01 - downgrading to augmentin/doxycycline oral, completed course. - MRSA PCR negative - currently not requiring supplemental O2 - follow pneumonia workup (2) COPD (chronic obstructive pulmonary disease): Code(s): J44.9 - Chronic obstructive pulmonary disease, unspecified Status: Acute Assessment and Plan: Emphysema with hyperinflation noted on chest x-ray. Patient found to be wheezy in ED. Patient may having exacerbation due to pneumonia. Increased sputum production despite antibiotics suggests COPD, especially as she is not showing signs of sepsis, worsening WBC count, etc. - DuoNebs Q6H p.r.n. - substitute breztri for trilogy while inpatient - home medications: Breztri and albuterol p.r.n. - 125 mg methylprednisolone, hour long DuoNeb, and 2 g magnesium sulfate in ED - currently not requiring supplemental O2 - standing methylprednisolone order as this appears to be improving patient's symptoms. will administer one dose today and taper down to 40mg tomorrow, DC on prednisone oral to complete 5 days. Pulmonary follow up will be beneficial for her on discharge. (3) Elevated troponin: Code(s): R79.89 - Other specified abnormal findings of blood chemistry Status: Chronic Assessment and Plan: Patient presents with 3 day history of dyspnea accompanied by intermittent nonradiating substernal chest pain described as sharp and lasting only a couple seconds. No acute ischemia on serial EKGs. - EKG, initial: Initial EKG sinus tachycardia with incomplete left bundle-branch block. No significant change from prior. Initial troponin elevated at 0.059. Patient has a history of elevated troponin without cardiac ischemia. Likely elevated due to demand ischemia. - EKG, repeat (1): AFib with incomplete left bundle-branch block - EKG, repeat (2): Sinus tach with rate of 101 - Chest x-ray with probable small right pleural effusion, emphysema with hyperinflation. - Troponin: 0.059-0.049-0.047 - 324 mg ASA in ED - cardiology consulted: recommends outpatient follow up, no ischemic workup at this time as suspicion is low - continue atorvastatin - previous echo on 01/26/2023 shows an EF of 43% (4) Atrial fibrillation: Qualifiers: Atrial fibrillation type: paroxysmal Qualified Code(s): I48.0 - Paroxysmal atrial fibrillation Code(s): I48.91 - Unspecified atrial fibrillation Status: Chronic Assessment and Plan: Chronic AFib with heart rate frequently greater than 100 documented over several years. Asymptomatic -continue apixaban (5) Ischemic cardiomyopathy: Code(s): I25.5 - Ischemic cardiomyopathy Status: Chronic Assessment and Plan: History of CAD status post stent in 2018. Patient presents today with intermittent substernal sharp chest pain with elevated troponin. Pain does not appear to be cardiac related. Cardiology agrees, does not recommend ischemic workup at this time. 02/02: BP soft today after dose of entresto. AM dose held, PM reduced to 1/2, however may need to be held. Given hypotension, will get lactic acid with AM labs to rule out sepsis. Suspicion is low for now as patient is clinically improving. Lactic acid was 2.2 > 2.3, however patient has been receiving albuterol, which is known to elevate lactate, and level is only slightly elevated. - previous echo on 01/26/2023 shows an EF of 43% -continue Entresto, Lasix, spironolactone. Hold BP meds if not tolerated. -outpatient cardiology on DC Plan Discharge on oral steroid course to complete 5 days, prednisone 40mg for 3 days, then 20mg for 2 days. DS: Summary Hospital Course Hospital Course: 74-year-old female with past medical history of COPD, ischemic cardiomyopathy, hyperlipidemia, hypertension, empyema presents to the ED on 02/01/2025 with co mplaints of chest pain and shortness of breath. Patient reportedly had the flu 2 weeks ago. She is chronically short of breath but her dyspnea has increased over the past few days. She has also been having intermittent episodes of sharp substernal chest pains over the past few days. The chest pain lasts for a couple of seconds resolving. She states the pain can happen with inspiration but also happens randomly. Denies productive cough, fever. Patient was hospitalized in July 2024 with empyema after an attempted CT guided left upper lobe nodule in June. Patient does have history of NV in 2018 with 1 stent placed. Initial vital signs 146/85, HR 103, respirations 22, afebrile and 100% on room air. Hematology with no leukocytosis, baseline iron deficiency anemia. Sodium 131, chloride 95, BUN 18, creatinine 0.48. AST 169, ALT 249. Initial troponin 0.049. BNP 38071. Initial EKG sinus tachycardia with incomplete left bundle-branch block. No significant change from prior. Chest x-ray with probable small right pleural effusion, emphysema with hyperinflation. Chest CT right lower lobe bronchial pneumonia superimposed on chronic lung disease. Redemonstration of left lung nodule. 02/02/2025: Feeling much improved, starting to have productive cough with yellow sputum. Seen by cardiology for chest pain, no acute ischemic workup at this time recommended. 02/03: BP had been low the day prior, entresto had to be stopped. Required albumin infusion overnight to bring back BP, which stabilized through the morning. Entresto/BP meds now on hold. Patient has been having productive cough, could be PNA but given it is being treated, may be element of COPD. Jelani Quezada daily ordered already, will give dose of methylprednisolone to counter element of COPD, and assess accordingly. 02/04: Started standing dose IV steroid, productive cough persists, however no significant SOB, patient does report steady improvement. 2: Will give another IV steroid dose today, discharge with 5 days oral steroids tomorrow and oral abx to complete course if needed, as well as pulmonary appointment, cardiology, pcp. Hypotension has been a problem and has resulted in holding BP meds, BP is now starting to stabilize. Likely to resume at least 1 of antihypertensives on discharge with close pcp follow up. 02/06: Still improving but productive cough still noted, no signs of sepsis or w orsening WBC count. Repeat CXR consistent with emphysema, but pneumonia is much improved on comparison to prior XR. Will discharge patient, advised close follow up with pulmonary and PCP for COPD management, and cardiology. Status at Discharge Cognitive/behavioral status at discharge: stable Time Spent with Patient Time attestation: Total time spent providing and/or coordinating discharge services: Exam Narrative: GENERAL: non-toxic appearing, in no acute distress. HEAD: Normocephalic, atraumatic. EYES: PERRLA. Conjunctivae clear. NOSE: Normal no drainage. THROAT: Pharynx clear, no exudate. NECK: Trachea midline. No adenopathy, no masses. RESPIRATORY: Airway patent, respirations nonlabored. Decreased breath sounds throughout. CARDIOVASCULAR: Irregular rate and rhythm BREASTS: Defer GASTROINTESTINAL: Abdomen is soft and nontender. No organomegaly. Bowel sounds normal in all quadrants. GENITOURINARY: Defer MUSCULOSKELETAL: Moves all extremities. No gross deformities. No edema. SKIN: Warm, dry, normal color. NEURO: A&O X4. Speech clear PSYCHIATRIC: Normal interaction DS: Data Data Completed and Pending Labs on day of discharge: Labs from last 24 hours 02/06/25 02/04/25 05:40 03:38 WBC 7.8 RBC 2.93 L Hgb 9.9 L Hct 30.6 L MCV 104.4 H MCH 33.8 MCHC 32.4 RDW 15.6 H Plt Count 340 MPV 9.6 Sodium 134 L Potassium 3.5 Chloride 100 Carbon Dioxide 35 H Anion Gap -1 L BUN 18 H Creatinine 0.52 L Estim Creat Clear Calc 70 Estimated GFR > 60 Glucose 89 Calcium 7.9 L Total Bilirubin 0.3 AST 99 H ALT 157 H Alkaline Phosphatase 53 Total Protein 5.2 L Albumin 2.8 L M.pneumoniae IgM Titer <770 Preliminary micro results at discharge 02/01/25 11:47 Blood Culture - Preliminary Blood 02/01/25 11:47 Blood Culture - Preliminary Blood Discharge Plan Discharge Attending physician on discharge: Silas Angel Oca Consulting providers: Fleissner,Buck. Discharging Clinician: Silas Angel Oca Patient Disposition: Home Activity: as tolerated Diet: heart healthy Discharge Instructions: Medication adjustments have been made: Entresto is now 1/2 24-26 mg tablet twice daily, spironolactone is now 1/2 25mg tablet once daily, furosemide has been added 20mg daily. Metoprolol succinate has been restarted at educed 12.5mg dose as well, take as tolerated and follow with PCP/cardiology. Prednisone has been sent for COPD, tapered dose: 2 20mg tablets once daily for 3 days starting 02/07, followed by 1 20mg tablet once daily for 2 days. Follow up with cardiology for continued management of heart failure. Follow up with pulmonary as soon as possible to manage COPD. Follow up with PCP as soon as possible for general management. Patient Instructions: Antibiotic Form Patient Language: Amharic Stand Alone Forms: General Discharge Information Follow-up/Referrals: [facility] [Provider Group, Pulmonology] - 2 Weeks Referral Note: COPD exacerbation during pneumonia hospitalization. Problems: COPD (chronic obstructive pulmonary disease) Casper,MD Nu [Primary Care Provider, Family Practice] Simon Taylor MD [Physician, Cardiology] - 4 Weeks Discharge Medications: New furosemide 20 mg Tablet 20 mg PO DAILY 30 Days Qty: 30 0RF ipratropium-albuterol 0.5 mg-3 mg(2.5 mg base)/3 mL Solution For Nebulization 3 ml inhalation Q6HRT PRN (Reason: shortness of breath) 30 Days Qty: 10 0RF prednisone 20 mg tablet 20 mg PO DAILY 5 Days Qty: 8 0RF Rx Instructions: take 2 tablets once daily for 3 days, then 1 tablet once daily for 2 days metoprolol succinate 25 mg tablet extended release 24 hr 12.5 mg PO DAILY 30 Days Qty: 15 0RF Continued (DME) Space Chamber Spacer See Rx Instructions .ROUTE .COMPLEX Qty: 1 0RF Dose Instruction: USE DIRECTED Rx Instructions: USE DIRECTED triamcinolone acetonide 0.1 % cream 1 applic topical BID PRN (Reason: PSORIASIS) 30 Days Qty: 0 0RF Rx Instructions: for plaque psoriasis thiamine HCl (vitamin B1) 100 mg tablet 100 mg PO DAILY 30 Days Qty: 100 3RF atorvastatin 40 mg tablet 40 mg PO DAILY 30 Days Qty: 0 0RF cyanocobalamin (vitamin B-12) 1,000 mcg tablet 1,000 mcg PO DAILY 30 Days Qty: 100 0RF spironolactone 25 mg tablet 12.5 mg PO DAILY 30 Days Qty: 30 0RF ferrous sulfate [FeroSul] 325 mg (65 mg iron) tablet 325 mg PO BID 30 Days Qty: 180 0RF albuterol sulfate 90 mcg/actuation HFA aerosol inhaler 1 inh INHALATION Q4H 30 Days Qty: 8.5 3RF ezetimibe [Zetia] 10 mg tablet 10 mg PO DAILY 30 Days Qty: 30 0RF pregabalin [Lyrica] 100 mg capsule 100 mg PO BID 7 Days Qty: 30 3RF aspirin 81 mg tablet,delayed release (DR/EC) 81 mg PO DAILY 30 Days Qty: 0 0RF tacrolimus 0.1 % ointment 1 applic topical BID PRN (Reason: PSORIASIS) 30 Days Qty: 0 0RF Rx Instructions: plaque psoriasis cholecalciferol (vitamin D3) 250 mcg (10,000 unit) capsule 250 mcg PO DAILY 30 Days Qty: 90 0RF Breztri Aerosphere 160-9-4.8 mcg/actuation HFA aerosol inhaler See Rx Instructions .ROUTE .COMPLEX 30 Days Qty: 10.7 11RF Dose Instruction: INHALE 2 PUFFS IN THE MORNING AND IN THE EVENING RINSE AND SPIT AFTER EACH USE WITH A SPACER Rx Instructions: INHALE 2 PUFFS IN THE MORNING AND IN THE EVENING RINSE AND SPIT AFTER EACH USE WITH A SPACER Eliquis 5 mg tablet 5 mg PO BID 30 Days Qty: 180 1RF clobetasol 0.05 % cream 1 applic topical DAILY PRN (Reason: itching) 30 Days Qty: 60 0RF Rx Instructions: plaque psoriasis omeprazole 20 mg capsule,delayed release(DR/EC) 20 mg PO DAILY 30 Days Qty: 0 0RF Changed Entresto 24-26 mg tablet 0.5 tablet PO BID 30 Days Qty: 30 0RF Date of admission: 02/03/25 17:00 Primary Care Provider: SruthiNu Admitting Provider: Silvano Marie Attending physician on admission: Silvano Marie Condition: Guarded Prognosis Hospitalist MIPS Heart Failure (Exclusion) Patient has history of Heart Transplant or Left Ventricular Assistive Device?: No IF YES, STOP HERE Heart Failure (Qualifier) Patient has current or prior documentation of LVEF less than or equal to 40%, or mod/servere depressed LVSF?: Yes IF NO, STOP HERE If Yes, Heart Failure (Qualifier) Patient was prescribed or already taking an Angiotensin-Converting Enzyme (PRIYANK) Inhibitor, or Antiotensin Receptor Eugene (ARB): Yes Patient was prescribed or already taking bisoprolol, carvedilol, or sustained release metoprolol succinate: Yes
== END 2025-02-06 14:15 | disposition home or self-care (01) | DRG 194 ==
LOC: ANHED 11:28 → ANHIMU 14:38 → ANH3MEDSUR 02-06 11:54 → ANHIMU 02-07 13:31
PROVIDERS: Nurse Practitioner Adult Health; Admitting Provider Internal Medicine; Emergency Provider Emergency Medicine; PCP Family Medicine; Visit Provider Student in an Organized Health Care Education/Training Program
DX: J18.9 Pneumonia, unspecified organism (principal); I48.20 Chronic atrial fibrillation, unspecified; J44.0 Chronic obstructive pulmonary disease with (acute) lower respiratory infection; J44.1 Chronic obstructive pulmonary disease with (acute) exacerbation; I25.10 Atherosclerotic heart disease of native coronary artery without angina pectoris; I25.5 Ischemic cardiomyopathy; E78.5 Hyperlipidemia, unspecified; I95.9 Hypotension, unspecified; D50.9 Iron deficiency anemia, unspecified; I44.7 Left bundle-branch block, unspecified; R91.1 Solitary pulmonary nodule; R79.89 Other specified abnormal findings of blood chemistry; M81.0 Age-related osteoporosis without current pathological fracture; F17.210 Nicotine dependence, cigarettes, uncomplicated; F10.90 Alcohol use, unspecified, uncomplicated; Z79.82 Long term (current) use of aspirin; Z79.01 Long term (current) use of anticoagulants; Z95.5 Presence of coronary angioplasty implant and graft; I25.2 Old myocardial infarction
CPT/HCPCS: 36410; 36415; 36600; 71045; 71250; 80048; 80053; 80202; 82805; 83605; 83690; 83880; 84132; 84145; 84484; 85018; 85025; 85027; 85610; 85730; 86738; 87040; 87449; 87641; 87899; 93005; 94640; 96365; 96366; 96367; 96375; 97162; 97166; 99285; A9270; C1751; G0378; J0696; J1938; J2919; J3373; J3475; J7050; J7120; P9047